=== PATIENT | female | born 1940 | race African-American/Black ===

== ENCOUNTER → 2022-08-31 08:19 | Outpatient (BNVA) | payer OTHER, SELFPAY | PROVIDERS: PCP Internal Medicine; Visit Provider Surgery | DX: C50.911 Malignant neoplasm of unspecified site of right female breast (principal) | CPT/HCPCS: 99202 ==

== ENCOUNTER → 2022-09-01 12:06 | Outpatient (BNV) | payer OTHER, SELFPAY | PROVIDERS: PCP Internal Medicine; Visit Provider Internal Medicine | DX: C50.911 Malignant neoplasm of unspecified site of right female breast (principal) | CPT/HCPCS: 99205; 99212; 99213; 99214; 99215; G2211 ==

== ENCOUNTER → 2022-09-06 08:05 | Outpatient (BNVA) | payer OTHER, SELFPAY | PROVIDERS: PCP Internal Medicine; Referring Provider Internal Medicine; Visit Provider Surgery | DX: C50.919 Malignant neoplasm of unspecified site of unspecified female breast (principal) | CPT/HCPCS: 99202 ==

== ENCOUNTER 2022-09-07 07:55 | Day surgery (SDC) | payer OTHER, SELFPAY ==
--- NOTE | 2022-09-06 14:28 | MHC.SHP ---
Pre-Procedural Eval Section A Date of Service: 09/06/22 The patient is an INPATIENT: No Changes since office visit: No Cold of Flu in the past 2 weeks, No New Medical Problems, No Changes in Medication and No Patient answered all questions The History & Physical has been completed within 30 days and I have reviewed it.: Yes Section B Chief Complaint: Malignant neoplasm of unspecified site of unspecif Allergies: Allergies Allergy/AdvReac Type Severity Reaction Status Date / Time metformin Allergy Mild myalgia Verified 09/06/22 08:13 Plan I have reviewed the history and physical and performed a pertinent physical examination on my patient. No changes have occurred unless specified. Time Spent With Patient Time: Total time managing care of this patient today ____ minutes.
[2022-09-07] VITALS (15 sets, daily range): BP systolic 183–230; BP diastolic 71–153; PULSE 50–68; RESP 14–16; TEMP 36.1–36.8; O2SAT 95–100; BMI 29.8
--- NOTE | 2022-09-07 08:38 | PC.NURSE ---
ekg ordered and md jj by bedside patient. large raised area to right breast. patient stated she recently had fluid removed. right sided chest pain in three areas. asymptomatic.
--- NOTE | 2022-09-07 09:58 | MHC.SHP ---
Pre-Procedural Eval Section A Date of Service: 09/07/22 The patient is an INPATIENT: No Changes since office visit: No Cold of Flu in the past 2 weeks, No New Medical Problems, No Changes in Medication and No Patient answered all questions The History & Physical has been completed within 30 days and I have reviewed it.: Yes Section B Chief Complaint: Malignant neoplasm of unspecified site of unspecif Details of Present Illness: Patient has a recurrence of a right breast cyst which is status post aspiration at [facility] few weeks ago. She would like to have this reaspirated. This has been added to the consent form and will be undertaken in the OR at the completion of port placement Allergies: Allergies Allergy/AdvReac Type Severity Reaction Status Date / Time metformin Allergy Mild myalgia Verified 09/06/22 08:13 Plan I have reviewed the history and physical and performed a pertinent physical examination on my patient. No changes have occurred unless specified. Time Spent With Patient Time: Total time managing care of this patient today ____ minutes.
--- NOTE | 2022-09-07 10:03 | HO.ANESPROP2 ---
HPI - Anesthesia Eval Consult details Narrative: 82 yo F presenting for port-a-cath placement and right breast fluid drainage. Very poorly controlled HTN - SBP in the 200s in pre-op. Patient did not take anti-hypertensive medications today. Patient denied any symptoms. EKG obtained in pre-op showed SB with sinus arrhythmia. Review of previous office visits in other specialties showed SBP between 170s-200s. PMFSH Active Problems Active Problems: All Active Problems (Updated 09/01/22 @ 17:39 by Marisel Christine MD) Triple negative malignant neoplasm of breast (Acute) Invasive ductal carcinoma of right breast (Acute) Type 2 diabetes mellitus (Acute) Hypertension (Acute) Beta thalassemia (Acute) Past Medical History Medical History Beta thalassemia Hypertension Invasive ductal carcinoma of right breast Type 2 diabetes mellitus Family History Family History Sister Breast cancer Surgical History Surgical History History of delivery (1982) Triple negative malignant neoplasm of breast History of Problems with Anesthesia: No Social History Social History Household Members: None Housing: Apartment Alcohol intake: never Patient Tobacco Use Status: Never used Tobacco Use of substances other than those prescribed or required for medical reasons: No Are you DNR?: No Advance Directives: No Advance Directives Information Provided: Yes Recently lost weight without trying: No Nutrition Risks: No Nutritional Risk service: No Current occupational status: retired Meds Allergies Allergy/AdvReac Type Severity Reaction Status Date / Time metformin Allergy Mild myalgia Verified 09/06/22 08:13 Active Medications: Current Medications Lactated Ringer's (Lr) 1,000 mls @ 80 mls/hr IVCONT .[id number] [facility] Home Medications Medication Instructions Recorded Confirmed Last Taken Type atorvastatin 20 mg tablet 20 mg PO DAILY 08/31/22 09/01/22 Unknown History glipizide 10 mg tablet 10 mg PO BID 08/31/22 09/01/22 Unknown History losartan 100 mg tablet 100 mg PO DAILY 08/31/22 09/01/22 Unknown History metoprolol succinate 50 mg 75 mg PO DAILY 08/31/22 09/01/22 Unknown History tablet,extended release 24 hr Exam Exam Date and Time: September 07, 2022 1003 Height,Weight and Vital Signs: Height 5 ft 8 in Weight 88.904 kg Last Vital Signs Temp 98.2 F 09/07/22 08:14 Pulse 55 09/07/22 09:58 Resp 16 09/07/22 09:58 BP 218/89 H 09/07/22 09:58 Pulse Ox 97 09/07/22 08:14 O2 Del Method Room Air 09/07/22 08:14 Airway Mallampati Class: II TM Dist: >3cm Neck ROM: Full Denture: Upper Heart: S1S2 Lungs: CTAB Assessment and Plan Assessment Anesthesia Assessment: Anesthesia Plan Discussed and Chart Reviewed Final Anesthetic Review History of Problems with Anesthesia: No NPO: Yes ASA Class: III Final Preanesthetic Review: No Changes in Pt Med Stat, Meds/Allgs Chart Reviewed, Consent Obtained/Reviewed and Anes Risks/Benef Reviewed Patient Risk: Intermediate Procedure Risk: Low Anesthetic Plan Anesthetic Plan: MAC: and Agree w/ Assess. and Plan Disposition: Standard PACU
--- NOTE | 2022-09-07 12:08 | W.PM.OPN ---
Operative Note Operative Note Date of Service: 09/07/22 Narrative: Preoperative diagnosis: [] Metastatic breast cancer, large anterior chest wall/breast malignant cyst Postop diagnosis: [] Same Procedure . 1. left subclavian Port-A-Cath placement with Doppler ultrasound guidance and fluoroscopy, 2.aspiration massive right anterior chest wall malignant cyst Surgeon: [] [employer] Director: [] lyla Awad Type of Anesthesia: [] MAC covered LMA Indication for surgery: [] Patient had attempted right internal jugular vein and right subclavian vein access , which was uneventfully obtained but with inability to advanced the wire into the superior vena cava. The concern is that this used chest wall process which was visible externally may also be involved with mediastinal disease/SVC compression. Conversion to the contralateral left side was used for access. Approximately 400 cc dark colored turbid fluid was retrieved from the anterior chest wall complex malignant cyst. Findings: [] 1. Patient brought to the operating room, placed on operative table supine position, after adequate level of initially MAC anesthesia was induced, the right neck and chest areas were prepped draped in usual sterile fashion. Patient was placed in Trendelenburg position. Using Doppler ultrasound guidance, the right internal jugular vein was identified and uneventfully cannulated. Under fluoroscopic guidance, the wire was unable to be advanced into the superior vena cava. The wire kept going down to the subclavian vein on the right side instead. Despite multiple attempts, this was unsuccessful in passing the wire into the superior vena cava. Next venous access was attempted to the right subclavian vein which again was uneventfully cannulated but with inability to advance the wire beyond the internal jugular vein/subclavian vein junction. The concern is that the patient may have a malignant process involving her mediastinum and possibly resulting in the inability to advance the wire. Intraoperative fluoroscopy demonstrated no evidence of pneumothorax on the right side. Decision was made to attempt access from the contralateral left side. The left neck and chest were then prepped and draped in usual sterile fashion. The left internal jugular vein was again cannulated uneventfully under ultrasound guidance with the wire advanced to the right side but with inability to advanced into the superior vena cava despite multiple attempts. A cutdown was made in the internal jugular vein to once again attempt to access the vein and attempt to advance the wire. A small transverse incision was made over the area between the 2 heads of the left anterior neck, carried down through skin, subcutaneous tissue, cervical fascia. Internal jugular vein was identified and uneventfully cannulated using Seldinger technique and again the wire would not advance into the superior vena cava. This wound Was irrigated, secured hemostasis, and closed using the following technique, cervical fascia was reapproximated using interrupted 3-0 Vicryl sutures. Interrupted inverted deep dermal 3-0 Vicryl sutures followed by running subcuticular 4-0 Vicryl sutures which were placed. Final attempt was made to cannulate the left subclavian vein, again under Seldinger technique. This was uneventfully accessed and a wire was able to advance to the level of the superior vena cava under fluoroscopic guidance. A pocket was fashioned at the cannulation site of the left upper chest using Bovie. Dilating sheath was then placed over the wire again under fluoroscopic guidance and a wire retrieved. Catheter was advanced to the level of the disc superior vena cava uneventfully and connected to a port. Port secured to the pocket using 3-0 Vicryl sutures. Antegrade and retrograde flow were established several times without incident. Wound was irrigated, secured hemostasis, and closed using interrupted inverted dermal 3-0 Vicryl sutures followed by Steri-Strips and sterile dressing. 2. Next the massive anterior right chest wall cyst was aspirated were approximately 400 cc of turbid fluid were retrieved. Specimen sent for for cytology. Sterile dressing was applied to this. Sponge, needle, and instrument counts reported correct. Patient tolerated the procedure well emerged anesthesia stable condition. Postprocedure x-ray is pending in recovery room. EBL minimal
== END 2022-09-07 15:32 | disposition home or self-care (01) ==
PROVIDERS: Visit Provider Surgery
PROC: (CPT 36561; principal; 2022-09-07 09:30)
PROC: (CPT 19120; 2022-09-07 09:30)
DX: C50.919 Malignant neoplasm of unspecified site of unspecified female breast (principal); L72.9 Follicular cyst of the skin and subcutaneous tissue, unspecified; E11.9 Type 2 diabetes mellitus without complications; I10 Essential (primary) hypertension
CPT/HCPCS: 36561; 10160; 71045; 82947; 88112; 88305; 88341; 88342; 93005; C1788; J0131; J0690; J1643; J2405; J2795; J3010

== ENCOUNTER 2022-09-08 08:53 | Outpatient (REF) | payer OTHER, SELFPAY ==
--- NOTE | ~2022-09-08 | CT_ITS ---
EXAMINATION: CT ABDOMEN AND PELVIS WITH CONTRAST CLINICAL INFORMATION: History of breast cancer. Staging evaluation. COMPARISON: Nuclear medicine bone scan 09/13/2022 TECHNIQUE: Multidetector volumetric images were obtained from the superior aspect of the liver through the pubic symphysis following administration 85 mL of Omnipaque 350 intravenous contrast. Sagittal and coronal reformatted images were obtained on the technologist's workstation. Oral contrast: No This CT examination was performed using dose optimization techniques as appropriate, variously including the following: *Automated exposure control *Adjustment of mA and/or kV according to patient size (this includes techniques or standardized protocols for targeted exams where dose is matched to indication/reason for exam; i.e. extremities or head) *Use of iterative reconstruction technique DLP: 436 mGy-cm FINDINGS: LUNG BASES: Right basilar atelectasis. LIVER, GALLBLADDER, AND BILIARY TREE: The liver is normal in size and contour. No focal hepatic lesion or biliary ductal dilatation is present. The gallbladder is unremarkable. PANCREAS: No ductal dilatation. SPLEEN: Not enlarged. ADRENAL GLANDS: No adrenal mass. KIDNEYS AND URETERS: The kidneys are symmetric in size and enhancement. No hydronephrosis or perinephric stranding. BLADDER: Underdistended. GASTROINTESTINAL TRACT: Stomach is underdistended limiting evaluation. Small and large bowel loops are of normal caliber. Marked fecal retention in the colon. No small bowel obstruction. ABDOMINAL WALL: No significant hernia is appreciated. LYMPH NODES: No bulky abdominal or pelvic lymphadenopathy. VASCULAR: No abdominal aortic aneurysm. Moderate atherosclerotic vascular calcification of the abdominal aorta and major branch vessels. PELVIC VISCERA: Enhancing right uterine fibroid. OSSEOUS STRUCTURES: Sclerotic foci right sacral ala, left iliac bone, left hemisacrum, right L4 pedicle. CT/CT abdomen pelvis w IV con IMPRESSION: Enhancing right uterine fibroid. Scattered sclerotic foci in the the pelvic bones. There is no corresponding uptake on nuclear medicine bone scan.
== END 2022-09-08 08:54 | disposition home or self-care (01) ==
LOC: HO.CT 08:53
PROVIDERS: Visit Provider Internal Medicine
DX: C50.911 Malignant neoplasm of unspecified site of right female breast (principal)
CPT/HCPCS: 74177; Q9967

== ENCOUNTER → 2022-09-11 09:01 | Outpatient (REF) | payer OTHER, SELFPAY ==
--- NOTE | 2022-09-11 09:04 | CA_ITS ---
Transthoracic Echocardiogram Patient (Last, First, Middle): Kera Stovall, Gender: Female Date of : 1940 Age: 82 Procedure Date: 09/11/2022 Procedure Type: Transthoracic Echocardiogram Location: OP Height: 172.72 cm Weight: 88.45 kg BSA: 2.02 m2 Heart Rate: bpm BP: 170 / 90 mmHg Profile Trimmer: RADHA Referring MD: Marisel Christine MD Taker Off Hemp Fiber: Isak Castillo MD Symptoms: pre chemo eval Study Quality: Fair ECG Rhythm: Sinus Conclusions: - 1. Normal LV systolic function with LVEF of 65-70% with mild LVH with impaired relaxation filling pattern 2. Moderately dilated left atrium 3. Normal cardiac valvular Dopplers 4. No clear evidence of pulmonary hypertension 5. No gross pericardial effusion Findings Left Ventricle Normal left ventricular size and systolic function. There is mildly increased left ventricular wall thickness. The visually estimated ejection fraction is between 65-70%. Spectral Doppler is indicative of an impaired relaxation filling pattern. E/E prime ratio is between 8 and 15 consistent with indeterminate filling pressures. Peak GLS is -19.2%, within normal limits. Right Ventricle Normal right ventricular cavity size and systolic function. Atria The left atrium is moderately dilated. Interatrial shunt cannot be excluded. The right atrium is likely dilated. Aortic Valve The aortic valve was not well visualized. There is no aortic valve stenosis. There is no aortic valve regurgitation. Mitral Valve Likely normal mitral valve structure and function. There is trace mitral valve regurgitation. There is no mitral valve stenosis. Pulmonic Valve The pulmonic valve was not well visualized. Tricuspid Valve Likely normal tricuspid valve structure and function. There is mild tricuspid valve regurgitation. The right ventricular systolic pressure is not calculated. There is no evidence of pulmonary hypertension. Great Vessels All visible segments of the aorta are normal in size. The pulmonary artery was not well visualized. Venous The inferior vena cava was not well visualized. Pericardium/Pleural There is no evidence of pericardial effusion. Prior Study Comparison No prior study available for comparison. Measurements 2D Linear Measurements IVSd: 1.24 0.6-0.9/0.6-1.0 cm LVIDd: 3.91 3.9-5.3/4.2-5.9 cm LVIDd Index: 1.94 2.4-3.2/2.2-3.1 cm/m2 LVIDs: 2.22 2.0-3.6 cm LVPWd: 1.26 0.7-1.1 cm LA Diam: 3.60 2.7-3.8/3.0-4.0 cm LAIDs Index: 1.78 1.5-2.3 cm/m2 LV Mass: 211.74 67-162/88-224 g LV Mass Index: 104.82 43-95/49-115 g/m2 LVOT Diam: 2.00 3.0+(-)1.3 cm 2D Systolic Function EF 4C: 62.90 >55% EF 2C: 69.50 >55% EF BiP: 66.70 >55% Mitral Valve MV Pk E: 0.72 MV PK A: 1.08 MV Decel Time: 273.00 E/A: 0.70 E'Lateral: 5.66 E'Medial: 5.33 E/E' Med: 13.40 E/E' Lat: 12.70 PHT: 80.00 MVA PHT: 2.75 Decel Kleberg: 2.62 Aortic Valve AoV Pk Jay: 1.58 AoV Mn Jay: 1.02 AoV VTI: 0.37 AoV Pk Grad: 10.00 Aov Mn Grad: 5.00 SAMMI Cont.VTI: 2.42 LVOT LVOT Pk Jay: 1.17 LVOT Mn Jay: 0.77 LVOT VTI: 0.28 LVOT Pk Grad: 5.00 LVOT Mn Grad: 3.00 LVOT Diam: 2.00 LVOT Area: 3.14 Diastolic Function MV Pk E: 0.72 MV Pk A: 1.08 E/A: 0.70 E'Medial: 5.33 E/E' Med: 13.40 E' Laterial: 5.66 E/E' Lat: 12.70 Right Ventricle TAPSE (mm): 20.90 TVS' Jay: 13.90 Tricuspid Valve TR Pk Jay: 2.84 TR Pk Grad: 32.00 Great Vessels Aorta Sinus of Valsalva: 3.11 2.0-3.[address] Ridge: 2.60 1.7-3.4 cm Ao Asc: 3.20 2.1-3.4 cm Updated in Other Vendor System with Status of Final Isak Castillo MD electronically signed on 09/12/2022 12:06:54 PM with status of Final
== END ==
LOC: HO.CARD 09:01
PROVIDERS: Visit Provider Internal Medicine
DX: Z01.810 Encounter for preprocedural cardiovascular examination (principal); C50.911 Malignant neoplasm of unspecified site of right female breast
CPT/HCPCS: 93306; 93356

== ENCOUNTER → 2022-09-11 09:04 | Outpatient (BNV) | payer OTHER, SELFPAY | PROVIDERS: Visit Provider Internal Medicine Cardiovascular Disease | DX: I36.1 Nonrheumatic tricuspid (valve) insufficiency (principal) | CPT/HCPCS: 93306 ==

== ENCOUNTER → 2022-09-13 09:51 | Outpatient (REF) | payer OTHER, SELFPAY ==
--- NOTE | ~2022-09-13 | NM_ITS ---
EXAMINATION: NM BONE SCAN OF THE WHOLE BODY CLINICAL INFORMATION: 82-year-old female with right-sided breast cancer. For staging. COMPARISON: CT of the abdomen and pelvis done on 09/08/2022. TECHNIQUE: Multiple gamma scintillation camera images of the whole body were performed 2.75 hours following the intravenous administration of 32 mCi Tc-99m MDP. The radiotracer was injected through left hand superficial vein without complications. FINDINGS: In the head, no suspicious focal lesion. In the thoracic cage and upper extremities, mild arthritic changes are present at left hand, both shoulder and both sternoclavicular joints. In the spine, mild increase radiotracer activity at lower lumbar spine and lower thoracic spine likely represent degenerative spondylosis. In the pelvis, no suspicious focal lesion. In the lower extremities, increased periarticular radiotracer activities around both knees and both feet likely represent arthritic changes. No other definite bony abnormalities are noted. The urinary bladder and faint visualization of both kidneys are noted. NM/NM bone scan whole body IMPRESSION: No definite scintigraphic evidence of osseous metastasis. Multifocal increased radiotracer activity is seen around both shoulder, both sternoclavicular joints and both knees and both feet likely represent arthritic changes mild increased radiotracer activities at lower thoracic and lower lumbar spine likely represent degenerative spondylosis.
== END ==
LOC: HO.NUCMED 09:51
PROVIDERS: Visit Provider Internal Medicine
DX: C50.911 Malignant neoplasm of unspecified site of right female breast (principal)
CPT/HCPCS: 78306; A9503

== ENCOUNTER 2022-09-15 08:44 | Outpatient (AMB) | payer OTHER, SELFPAY ==
--- NOTE | 2022-09-15 08:57 | MHC.OFFVIS ---
Intake Vital Signs 09/15/22 08:58 Weight 195 lb Blood Pressure Location Rt brachial Pulse 66 Intake Visit Reasons: Port-A-Cath Insertion Intake Note: Patient here to re-check port-a-cath site. BEREAVEMENT COUNSELOR from snf called. Concerned with redness spreading. Curtain Cutter Hand Required: No Accompanied by: Daughter Allergies metformin Allergy (Mild, Verified 09/15/22 08:59) myalgia HPI HPI Comments History of Present Illness Details Patient presents with her daughter for follow-up. Aside from incisional discomfort she is doing fairly well. The right breast cystic mass has recurred after her aspiration which is also happened in the past when this was aspirated. [facility] Medical History Beta thalassemia Hypertension Invasive ductal carcinoma of right breast Type 2 diabetes mellitus Surgical History History of delivery (1982) Triple negative malignant neoplasm of breast Family History Sister Breast cancer Social History Household Members: None Housing: Apartment Alcohol intake: never Patient Tobacco Use Status: Never used Tobacco service: No Current occupational status: retired Female Reproductive History Menstrual Age of Menarche: 17 Physical Exam Vital Signs: Last Vital Signs Pulse 66 09/15/22 08:58 Chest Other: Left neck and chest port incision sites are clean dry and intact. Recurrence of right breast is cyst /mass. Assessment & Plan Assessment & Plan (1) Triple negative malignant neoplasm of breast: Code(s): C50.919 - Malignant neoplasm of unspecified site of unspecified female breast Plan Patient is to follow-up with Oncology regarding her commencement of chemotherapy/normal therapy. I once again explained to them why she has 2 incisions regarding her port. The left internal jugular vein access site which was attempted, the wire was unable to be advanced into the superior vena cava . The left subclavian vein which was then accessed had the wire pass uneventfully into her superior vena cava and this was the reason for 2 separate incisions. Patient will otherwise follow-up up p.r.n.. Once her oncologic therapy has commenced and she still has persistence of the cyst, hopefully this will allow aspiration and prevent recurrence. Coding Level of Care Code Global (25847) Diagnoses Triple negative malignant neoplasm of breast C50.919
[2022-09-15 08:58] VITALS: PULSE 66
== END 2022-09-15 09:09 | disposition home or self-care (01) ==
PROVIDERS: Visit Provider Surgery
DX: C50.919 Malignant neoplasm of unspecified site of unspecified female breast (principal)
CPT/HCPCS: 99024

== ENCOUNTER → 2022-09-15 08:44 | Outpatient (BNVA) | payer OTHER, SELFPAY | PROVIDERS: Visit Provider Surgery ==

== ENCOUNTER 2022-09-20 08:58 | Outpatient (REF) | payer OTHER, SELFPAY ==
[2022-09-20 09:11] LABS: MANUAL DIFF FLAG NO
[2022-09-20 09:44] LABS: Basophils Percent Auto 0.6 % (0-2); Eosinophils Absolute Auto 0.1 X10*3/uL (0.0-0.4); Eosinophils Percent Auto 1.7 % (0-4); Hemoglobin 11.3 g/dl (12.0-16.0); Imm Gran Abs Auto 0.02 X10*3/uL (0.00-0.03); Imm Gran Pct Auto 0.3 % (0.0-0.4); Lymphocytes Absolute Auto 1.9 X10*3/uL (1.2-4.9); Lymphocytes Percent Auto 27.4 % (20-40); Mean Corpuscular HGB Conc 30.5 g/dl (31.0-35.0); Mean Corpuscular Hemoglobin 23.9 pg (27.0-33.0); Mean Corpuscular Volume 78.4 fL (80.0-98.0); Mean Platelet Volume 10.3 fL (9.4-12.3); Monocytes Absolute Auto 0.5 X10*3/uL (0.1-1.2); Monocytes Percent Auto 7.7 % (2-11); Neutrophils Absolute Auto 4.3 x10*3/uL (2.0-8.3); Neutrophils Percent Auto 62.3 % (45-73); Platelet Count 259 X10*3/uL (160-400); Red Blood Count 4.72 X10*6/uL (4.20-5.50); Red Cell Distribution Width 15.4 % (11.0-16.0); White Blood Count 6.9 X10*3/uL (4.8-10.8)
[2022-09-20 10:17] LABS: Alanine Aminotransferase 12 U/L (0-31); Albumin Level 3.8 g/dL (3.5-5.0); Alkaline Phosphatase 88 U/L (39-117); Anion Gap 12 (12-20); Aspartate Amino Transferase 14 U/L (5-31); Bilirubin Total 0.6 mg/dL (0.0-1.0); Blood Urea Nitrogen 11 mg/dL (9-16); Calcium 9.9 mg/dL (8.4-10.2); Carbon Dioxide 28 mmol/L (22-29); Chloride 104 mmol/L (96-108); Estimated Glomerular Filt Rate > 60; Glucose Random 128 mg/dL (60-115); Potassium 3.9 mmol/L (3.3-5.1); Sodium 140 mmol/L (135-145)
[2022-09-20 10:37] LABS: HBS Num1 1.82 mIU/mL (0-7.99); HBc Num1 0.09 S/CO (0.00-0.79); HBsAGNum1 0.29 S/CO (0.00-0.99); Hepatitis B Core Antibody Nonreactive (Nonreactive); Hepatitis B Surface Antigen Negative (Negative); ~Hepatitis B Surface Antibody NONREACTIVE (Nonreactive)
== END 2022-09-20 08:59 | disposition home or self-care (01) ==
LOC: HO.LAB 08:58
PROVIDERS: Visit Provider Internal Medicine
DX: C50.911 Malignant neoplasm of unspecified site of right female breast (principal)
CPT/HCPCS: 36415; 80053; 85025; 86704; 86706; 87340

== ENCOUNTER 2022-09-22 08:55 | Outpatient (AMB) | payer OTHER, SELFPAY ==
--- NOTE | 2022-09-22 09:06 | A.OFFVIS_ITS ---
Intake Vital Signs 09/22/22 09:12 Height 5 ft 8 in Weight 192 lb BMI 29.2 BP 200/108 H Blood Pressure Location Lt brachial Position Sitting Pulse 68 Intake Visit Reasons: ? seroma Rt sup breast Intake Note: Patient here for painful growth on Rt sup chest. States pain is not helping with high blood pressure. She is scheduled to see PCP next Sunday. System Specialist Required: No Accompanied by: Daughter Allergies metformin Allergy (Mild, Verified 09/22/22 09:07) myalgia Medication List - Last Reconciled 09/22/22 by Naeem Aviles MD atorvastatin 20 mg PO DAILY glipizide 10 mg PO BID hydrocodone-acetaminophen 5-325 mg 1 tab PO Q4-6H PRN loperamide (Imodium A-D) 2 mg PO Q4H PRN losartan 100 mg PO DAILY metoprolol succinate ER 75 mg PO DAILY ondansetron 8 mg PO Q8H PRN HPI HPI Comments History of Present Illness Details Patient presents with a recurrence of her right breast malignant seroma. She wishes to have it drained. Patient comments chemotherapy earlier this week with uneventful use of the port. [facility] Medical History Beta thalassemia Hypertension Invasive ductal carcinoma of right breast Type 2 diabetes mellitus Surgical History History of delivery (1982) Triple negative malignant neoplasm of breast Family History Sister Breast cancer Social History Household Members: None Housing: Apartment Alcohol intake: never Patient Tobacco Use Status: Never used Tobacco service: No Current occupational status: retired Female Reproductive History Menstrual Age of Menarche: 17 Physical Exam Vital Signs: Last Vital Signs Pulse 68 09/22/22 09:12 BP 200/108 H 09/22/22 09:12 BMI result Body Mass Index 29.2 Chest Other: Massive right upper breast 12 o'clock position enormous malignant seroma Office Procedures FNA Biopsy FNA Biopsy Details: Risks, benefits, alternatives of aspiration of right breast malignant seroma reviewed with the patient and included but not limited to bleeding, infection, recurrence, numbness, pain, scarring and the patient was to proceed. Patient underwent Betadine prep and uneventful aspiration of approximately 260 cc of fluid from her malignant breast seroma. Well tolerated. Dressing applied at completion. FNA Biopsy 2: [id number] Biopsy, additional lesion w/o image All charges added?: Procedure code (CPT) selection complete Assessment & Plan Assessment & Plan (1) Seroma of breast: Comment: Patient has been given local instructions, and will follow-up p.r.n. Code(s): N64.89 - Other specified disorders of breast Orders: Orders Biopsy - Fine needle aspiration Today N64.89 - Other specified disorders of breast Coding Level of Care Code Est Pt Level 3 (07581) Diagnoses Seroma of breast N64.89 CPT Codes FNA Biopsy - FNA Biopsy 2: 86143-[id number] Biopsy, additional lesion w/o image ([id number])
[2022-09-22 09:12] VITALS: BP 200/108; PULSE 68; BMI 29.2
== END 2022-09-22 09:28 | disposition home or self-care (01) ==
PROVIDERS: Visit Provider Surgery
DX: N64.89 Other specified disorders of breast (principal)
CPT/HCPCS: 19000; 99213

== ENCOUNTER → 2022-09-22 08:55 | Outpatient (BNVA) | payer OTHER, SELFPAY | PROVIDERS: Visit Provider Surgery | DX: N64.89 Other specified disorders of breast (principal); C50.911 Malignant neoplasm of unspecified site of right female breast | CPT/HCPCS: 10160; 99212 ==

== ENCOUNTER 2022-09-29 08:37 | Outpatient (AMB) | payer OTHER, SELFPAY ==
--- NOTE | 2022-09-29 08:46 | MHC.OFFVIS ---
Intake Vital Signs 09/29/22 08:47 Height 5 ft 8 in Weight 193 lb BMI 29.3 Pulse 86 Intake Visit Reasons: S/P seroma of chest, needs draining Intake Note: Patient c/o seroma on Rt chest started to grow a couple days after last visit. Patient states she gets needle pricks at site. Barrel Finisher Required: No Accompanied by: Daughter Allergies metformin Allergy (Mild, Verified 09/29/22 08:48) myalgia Medication List - Last Reconciled 09/29/22 by Naeem Aviles MD atorvastatin 20 mg PO DAILY glipizide 10 mg PO BID hydrocodone-acetaminophen 5-325 mg 1 tab PO Q4-6H PRN loperamide (Imodium A-D) 2 mg PO Q4H PRN losartan 100 mg PO DAILY metoprolol succinate ER 75 mg PO DAILY ondansetron 8 mg PO Q8H PRN HPI HPI Comments History of Present Illness Details Patient presents with her daughter. She has had a as expected recurrence of her right breast malignant cyst. She is currently undergoing chemotherapy. Port is working well. [facility] Medical History Beta thalassemia Hypertension Invasive ductal carcinoma of right breast Type 2 diabetes mellitus Surgical History History of delivery (1982) Triple negative malignant neoplasm of breast Family History Sister Breast cancer Social History Household Members: None Housing: Apartment Alcohol intake: never Patient Tobacco Use Status: Never used Tobacco service: No Current occupational status: retired Female Reproductive History Menstrual Age of Menarche: 17 Physical Exam Vital Signs: Last Vital Signs Pulse 86 09/29/22 08:47 BMI result Body Mass Index 29.3 Chest Other: Recurrence of her chest wall cyst although grossly appears less in size. Office Procedures FNA Biopsy FNA Biopsy Details: Risks, benefits, alternatives of aspiration of a recurrent breast malignancy cyst reviewed the patient and included but not limited to bleeding, infection, recurrence, numbness, pain, scarring the patient was to proceed. She has had multiple such procedures done the past. Patient was appropriate position with Betadine prep and aspiration of 140 cc were retrieved. Completely drained. This is several 100 cc less than the prior the prior aspirations. Sterile dressing was applied. Well tolerated. FNA Biopsy 1: 43843-FHP Biopsy, 1st lesion w/o image All charges added?: Procedure code (CPT) selection complete Assessment & Plan Assessment & Plan (1) Seroma of breast: Comment: Patient has been given local instructions, and will follow-up p.r.n. Code(s): N64.89 - Other specified disorders of breast Plan: Patient had markedly less seroma on this visit. This is strongly encouraging hopefully related to her commencement of chemotherapy. Pain patient has been given local instructions, and will follow-up ER Orders: Orders Biopsy - Fine needle aspiration Today N64.89 - Other specified disorders of breast Coding Level of Care Code Est Pt Level 3 (42172) Diagnoses Seroma of breast N64.89 CPT Codes FNA Biopsy - FNA Biopsy 1: 06537-CQI Biopsy, 1st lesion w/o image ([id number])
[2022-09-29 08:47] VITALS: PULSE 86; BMI 29.3
== END 2022-09-29 09:05 | disposition home or self-care (01) ==
PROVIDERS: Visit Provider Surgery
DX: N64.89 Other specified disorders of breast (principal)
CPT/HCPCS: 19000; 99213

== ENCOUNTER → 2022-09-29 08:37 | Outpatient (BNVA) | payer OTHER, SELFPAY | PROVIDERS: Visit Provider Surgery | DX: N64.89 Other specified disorders of breast (principal); C50.911 Malignant neoplasm of unspecified site of right female breast | CPT/HCPCS: 19000; 99212 ==

== ENCOUNTER 2022-11-04 15:49 | Emergency (ER) | payer OTHER, SELFPAY ==
--- NOTE | ~2022-11-04 | US_ITS ---
EXAMINATION: US ABDOMEN GALLBLADDER. CLINICAL INFORMATION: Right upper quadrant pain. Epigastric pain.. COMPARISON: None available. TECHNIQUE: Real-time imaging of the gallbladder FINDINGS: GALLBLADDER: Normal. The gallbladder is physiologically distended without evidence of stones, sludge, polyps, wall thickening or pericholecystic fluid. COMMON BILE DUCT: Normal in caliber measuring 0.4 cm in diameter. US/US abdomen limited IMPRESSION: Normal ultrasound of the gallbladder.
--- NOTE | ~2022-11-04 | XR_ITS ---
EXAMINATION: XR CHEST CLINICAL INFORMATION: Chest pain COMPARISON: None available. TECHNIQUE: 2 views of the chest were obtained. FINDINGS: Left-sided chest port with tip terminating in the proximal right atrium. No significant abnormality is noted involving the heart, lungs, mediastinum, bony thorax or soft tissues. XR/XR chest 2V IMPRESSION: Unremarkable examination.
--- NOTE | 2022-11-04 15:51 | ED.GENADULT ---
HPI - General Adult General Chief complaint: General Medical Stated complaint: fever ,body aches chemo 11/03 Time Seen by Provider: 11/04/22 16:39 Source: patient and family Mode of arrival: ambulatory History of Present Illness HPI narrative: 82-year-old female with history of hypertension/diabetes as well as current breast CA and undergoing chemotherapy which she received yesterday and then states that this morning she woke up with fever, chills, chest pain, cough productive of clear white sputum and is feeling as though her stomach was twisting but denies any nausea, vomiting, diarrhea and states that she is currently on medication covering her for urinary tract infection. Related Data Home Medications Medication Instructions Recorded Confirmed atorvastatin 20 mg tablet 20 mg PO DAILY 08/31/22 11/03/22 glipizide 10 mg tablet 10 mg PO BID 08/31/22 11/03/22 losartan 100 mg tablet 100 mg PO DAILY 08/31/22 11/03/22 metoprolol succinate 50 mg 75 mg PO DAILY 08/31/22 11/03/22 tablet,extended release 24 hr Previous Rx's Medication Instructions Recorded loperamide 2 mg tablet (Imodium 2 mg PO Q4H PRN Diarrhea #30 tabs 09/19/22 A-D) ondansetron 8 mg disintegrating 8 mg PO Q8H PRN Nausea #30 tabs 09/19/22 tablet oxycodone 5 mg tablet 5 mg PO Q8H PRN Pain #30 tabs 10/06/22 amlodipine 10 mg tablet (Norvasc) 10 mg PO DAILY #30 tabs 10/13/22 nitrofurantoin 100 mg PO Q12H #10 caps 10/27/22 monohydrate/macrocrystals 100 mg capsule (Macrobid) sennosides 8.6 mg-docusate sodium 1 tab-cap PO BEDTIME #30 tabs 10/27/22 50 mg tablet (Senna with Docusate Sodium) Allergies Allergy/AdvReac Type Severity Reaction Status Date / Time metformin Allergy Mild myalgia Verified 09/29/22 08:48 Review of Systems Review of Systems: Pertinent positives and negatives as stated in HPI [facility] Past Medical History Source: nursing notes reviewed Medical History Beta thalassemia Hypertension Invasive ductal carcinoma of right breast Type 2 diabetes mellitus Surgical History History of delivery (1982) Triple negative malignant neoplasm of breast Family History Family History Sister Breast cancer Social History Social History Household Members: None Housing: Apartment Alcohol intake: never Patient Tobacco Use Status: Never used Tobacco Smoked in Last 30 Days: No Use of substances other than those prescribed or required for medical reasons: No Advance Directives: Yes Advance Directives on File: Yes Advance Directives Date on File: 09/01/22 service: No Current occupational status: retired Physical Exam ED Vital Signs: Vital Signs - 24 hr 11/04/22 15:53 11/04/22 17:40 11/04/22 19:22 Temperature 100.9 F H 98.8 F Pulse Rate 82 65 67 Respiratory Rate 20 20 14 Blood Pressure 164/66 H 146/63 H 132/65 Pulse Oximetry 97 96 95 Oxygen Delivery Method Room Air Room Air Room Air 11/04/22 22:14 11/05/22 00:00 Temperature 98.5 F 98.9 F Pulse Rate 96 87 Respiratory Rate 16 17 Blood Pressure 131/65 119/70 Pulse Oximetry 96 100 Oxygen Delivery Method Room Air Room Air BMI result Body Mass Index 29.6 VITAL SIGNS: Reviewed. GENERAL: Well developed, well nourished, in no acute distress. HEAD: Normocephalic/atraumatic EYES: PERRLA, EOMI EARS: Ext canals without abnormality NOSE: Nares patent bilateral OROPHARYNX: no oral lesions noted, posterior pharynx clear NECK: Supple, no adenopathy LUNGS: Normal breath sounds. No adventitious sounds or accessory muscle use. SpO2<97> CARDIOVASCULAR: Regular rate and rhythm without noted murmurs, no JVD or lower extremity edema. ABDOMEN: Soft, non-tender, non-distended with bowel sounds. MUSCULOSKELETAL: No tenderness, deformities, or effusions noted on gross inspection. EXTREMITIES: No cyanosis, clubbing or edema. SKIN: Inspection of the skin reveals no rashes NEUROLOGIC: Alert and oriented x 4. Strength and sensation to light touch were grossly intact x 4. Course Course Course Narrative: RME: 82-year-old female with past medical history of right breast invasive ductal CA on chemotherapy (last received yesterday), beta thalassemia, HTN, diabetes, presenting to the ED complaining of fever Tmax 101, myalgias/body aches, cough, chest pain & nausea. Denies SOB, vomiting/diarrhea. Denies any antipyretics today Febrile 100.9, coarse cough noted on exam EKG, labs, CXR, UA, Blood Cx & lactic, viral testing ordered Full HPI, ROS and PE to be performed by primary ED provider. Medications Administered Discontinued Medications Generic Name Dose Route Start Last Admin Trade Name Freq PRN Reason Stop Dose Admin Acetaminophen 975 mg 11/04/22 17:18 11/04/22 17:28 Acetaminophen 325 Mg Tablet PO 11/04/22 17:19 975 mg ONCE ONE Administration Potassium Chloride 10 meq in 100 mls @ 100 mls/hr 11/04/22 17:30 11/05/22 00:08 Potassium Chloride/H20 IV 11/04/22 21:29 Infused Q1H KYLEE Infusion Lidocaine/Diphenhydr/Alum/Mg/Simeth 10 ml 11/04/22 22:14 11/04/22 22:32 Mag&Al/Sim/Diphenhyd/Lidocaine 10 Ml Oral.Susp PO 11/04/22 22:15 10 ml ONCE ONE Administration Protocol Ondansetron HCl 4 mg 11/04/22 16:01 11/04/22 16:03 Ondansetron Odt 4 Mg Tab.Rapdis TRANSLINGU 11/04/22 16:02 4 mg ONCE ONE Administration Medical Decision Making Medical Decision Making MDM Narrative: 82-year-old female with history and clinical presentation of immuno compromise, DDX: Viral syndrome, pneumonia, gastritis, esophagitis/acid reflux, lower clinical suspicion for ACS given that patient describes it is burning and is been ongoing since this morning. Reviewed all investigations and hematologic indices do not demonstrate leukocytosis but there is a noted left shift, no thrombocytopenia there is a noted chronically stable microcytic anemia. Coagulation studies are within normal limits. Chemistry indices demonstrate a hypokalemia with magnesium within normal limits for which patient will receive 4-10 mEq potassium chloride replacement. Otherwise, there is no evidence of BREANNA there is a noted mild transaminemia for which I will order a right upper quadrant ultrasound. Chest x-ray negative for infiltrate and otherwise my interpretation is in agreement radiology's impression. Viral testing is negative. Ultrasound without evidence of cholecystitis, patient received off for potassium chloride replacements and repeat potassium is noted to be 3.2. Patient also received a GI cocktail and on re-evaluation states that she is feeling much better. My interpretation is that patient may have had a combination of mild acid reflux with low potassium levels. She is now feeling better and is discharged with follow-up to her primary care provider and oncologist. Differential Diagnosis Differential Diagnoses: The differential diagnosis associated with the presentation includes Please see the discussion above Admission/Observation Consideration of admission/observation: Escalation of care including admission/observation considered Please see the discussion above Lab Data MDM Lab Attestation statement: I reviewed the patient's lab results. Please see the discussion above 11/04/22 16:45 11/04/22 16:45 Labs: Lab Results 11/04/22 11/04/22 11/04/22 Range/Units 16:45 16:45 16:45 WBC 6.3 (4.8-10.8) X10*3/uL RBC 3.96 L (4.20-5.50) X10*6/uL Hgb 9.6 L (12.0-16.0) g/dl Hct 29.1 L (37.0-47.0) % MCV 73.5 L (80.0-98.0) fL MCH 24.2 L (27.0-33.0) pg MCHC 33.0 (31.0-35.0) g/dl RDW 15.8 (11.0-16.0) % Plt Count 207 (160-400) X10*3/uL MPV 9.6 (9.4-12.3) fL Immature Gran % (Auto) 1.0 H (0.0-0.4) % Neut % (Auto) 90.2 H (45-73) % Lymph % (Auto) 5.1 L (20-40) % Cedar % (Auto) 3.2 (2-11) % Eos % (Auto) 0.0 (0-4) % Baso % (Auto) 0.5 (0-2) % Lymph # (Auto) 0.3 L (1.2-4.9) X10*3/uL Cedar # (Auto) 0.2 (0.1-1.2) X10*3/uL Eos # (Auto) 0.0 (0.0-0.4) X10*3/uL Baso # (Auto) 0.0 (0.0-0.2) X10*3/uL Abs Immat Gran (auto) 0.06 H (0.00-0.03) X10*3/uL Absolute Neuts (auto) 5.7 (2.0-8.3) x10*3/uL Absolute Nucleated RBC 0.020 H (0.0-0.012) X10*3/uL Nucleated RBC % (auto) 0.3 H (0.0-0.2) /100WBC Smear Tech's Comments VERIFIED PT (11.1-13.3) SEC INR (0.9-1.1) Sodium 138 (135-145) mmol/L Potassium 2.7 L (3.3-5.1) mmol/L Chloride 105 (96-108) mmol/L Carbon Dioxide 25 (22-29) mmol/L Anion Gap 11 L (12-20) BUN 11 (9-16) mg/dL Creatinine 0.66 (0.5-1.4) mg/dL Estim Creat Clear Calc 77.8 Estimated GFR > 60 Random Glucose 63 (60-115) mg/dL Lactic Acid (0.5-2.0) mmol/L Calcium 9.2 (8.4-10.2) mg/dL Magnesium 1.7 (1.6-2.6) mg/dL Total Bilirubin 0.9 (0.0-1.0) mg/dL Direct Bilirubin 0.3 (0.0-0.5) mg/dL AST 36 H (5-31) U/L ALT 32 H (0-31) U/L Alkaline Phosphatase 94 (39-117) U/L Troponin I High Sens 8.9 (<3.5-17.0) ng/L B-Natriuretic Peptide (<100) pg/mL Total Protein 6.7 (6.5-8.0) g/dL Albumin 3.8 (3.5-5.0) g/dL Urine Color Urine Appearance Urine pH (5.0-9.0) Ur Specific [place] (1.005-1.025) Urine Protein (Neg-Trace) mg/dL Urine Glucose (UA) (Negative) mg/dL Urine Ketones (Negative) mg/dL Urine Blood (Negative) Urine Nitrite (Negative) Ur Leukocyte Esterase (Negative) COVID-19 (RAMYA) (Negative) COVID-19 Clin Com Influenza Type A (KOURTNEY) (Negative) Influenza Type B (KOURTNEY) (Negative) Influenza A & B Note 11/04/22 11/04/22 11/04/22 Range/Units 16:45 16:45 16:45 WBC (4.8-10.8) X10*3/uL RBC (4.20-5.50) X10*6/uL Hgb (12.0-16.0) g/dl Hct (37.0-47.0) % MCV (80.0-98.0) fL MCH (27.0-33.0) pg MCHC (31.0-35.0) g/dl RDW (11.0-16.0) % Plt Count (160-400) X10*3/uL MPV (9.4-12.3) fL Immature Gran % (Auto) (0.0-0.4) % Neut % (Auto) (45-73) % Lymph % (Auto) (20-40) % Cedar % (Auto) (2-11) % Eos % (Auto) (0-4) % Baso % (Auto) (0-2) % Lymph # (Auto) (1.2-4.9) X10*3/uL Cedar # (Auto) (0.1-1.2) X10*3/uL Eos # (Auto) (0.0-0.4) X10*3/uL Baso # (Auto) (0.0-0.2) X10*3/uL Abs Immat Gran (auto) (0.00-0.03) X10*3/uL Absolute Neuts (auto) (2.0-8.3) x10*3/uL Absolute Nucleated RBC (0.0-0.012) X10*3/uL Nucleated RBC % (auto) (0.0-0.2) /100WBC Smear Tech's Comments PT 12.9 (11.1-13.3) SEC INR 1.1 (0.9-1.1) Sodium (135-145) mmol/L Potassium (3.3-5.1) mmol/L Chloride (96-108) mmol/L Carbon Dioxide (22-29) mmol/L Anion Gap (12-20) BUN (9-16) mg/dL Creatinine (0.5-1.4) mg/dL Estim Creat Clear Calc Estimated GFR Random Glucose (60-115) mg/dL Lactic Acid (0.5-2.0) mmol/L Calcium (8.4-10.2) mg/dL Magnesium (1.6-2.6) mg/dL Total Bilirubin (0.0-1.0) mg/dL Direct Bilirubin (0.0-0.5) mg/dL AST (5-31) U/L ALT (0-31) U/L Alkaline Phosphatase (39-117) U/L Troponin I High Sens (<3.5-17.0) ng/L B-Natriuretic Peptide (<100) pg/mL Total Protein (6.5-8.0) g/dL Albumin (3.5-5.0) g/dL Urine Color Urine Appearance Urine pH (5.0-9.0) Ur Specific [place] (1.005-1.025) Urine Protein (Neg-Trace) mg/dL Urine Glucose (UA) (Negative) mg/dL Urine Ketones (Negative) mg/dL Urine Blood (Negative) Urine Nitrite (Negative) Ur Leukocyte Esterase (Negative) COVID-19 (RAMYA) Negative (Negative) COVID-19 Clin Com See Note Influenza Type A (KOURTNEY) Negative (Negative) Influenza Type B (KOURTNEY) Negative (Negative) Influenza A & B Note See Note 11/04/22 11/04/22 11/04/22 Range/Units 16:45 16:45 18:00 WBC (4.8-10.8) X10*3/uL RBC (4.20-5.50) X10*6/uL Hgb (12.0-16.0) g/dl Hct (37.0-47.0) % MCV (80.0-98.0) fL MCH (27.0-33.0) pg MCHC (31.0-35.0) g/dl RDW (11.0-16.0) % Plt Count (160-400) X10*3/uL MPV (9.4-12.3) fL Immature Gran % (Auto) (0.0-0.4) % Neut % (Auto) (45-73) % Lymph % (Auto) (20-40) % Cedar % (Auto) (2-11) % Eos % (Auto) (0-4) % Baso % (Auto) (0-2) % Lymph # (Auto) (1.2-4.9) X10*3/uL Cedar # (Auto) (0.1-1.2) X10*3/uL Eos # (Auto) (0.0-0.4) X10*3/uL Baso # (Auto) (0.0-0.2) X10*3/uL Abs Immat Gran (auto) (0.00-0.03) X10*3/uL Absolute Neuts (auto) (2.0-8.3) x10*3/uL Absolute Nucleated RBC (0.0-0.012) X10*3/uL Nucleated RBC % (auto) (0.0-0.2) /100WBC Smear Tech's Comments PT (11.1-13.3) SEC INR (0.9-1.1) Sodium (135-145) mmol/L Potassium (3.3-5.1) mmol/L Chloride (96-108) mmol/L Carbon Dioxide (22-29) mmol/L Anion Gap (12-20) BUN (9-16) mg/dL Creatinine (0.5-1.4) mg/dL Estim Creat Clear Calc Estimated GFR Random Glucose (60-115) mg/dL Lactic Acid 1.2 (0.5-2.0) mmol/L Calcium (8.4-10.2) mg/dL Magnesium (1.6-2.6) mg/dL Total Bilirubin (0.0-1.0) mg/dL Direct Bilirubin (0.0-0.5) mg/dL AST (5-31) U/L ALT (0-31) U/L Alkaline Phosphatase (39-117) U/L Troponin I High Sens (<3.5-17.0) ng/L B-Natriuretic Peptide 205 H (<100) pg/mL Total Protein (6.5-8.0) g/dL Albumin (3.5-5.0) g/dL Urine Color Yellow Urine Appearance Clear Urine pH 6.0 (5.0-9.0) Ur Specific [place] 1.010 (1.005-1.025) Urine Protein Trace (Neg-Trace) mg/dL Urine Glucose (UA) Negative (Negative) mg/dL Urine Ketones Negative (Negative) mg/dL Urine Blood Negative (Negative) Urine Nitrite Negative (Negative) Ur Leukocyte Esterase Negative (Negative) COVID-19 (RAMYA) (Negative) COVID-19 Clin Com Influenza Type A (KOURTNEY) (Negative) Influenza Type B (KOURTNEY) (Negative) Influenza A & B Note 11/04/22 Range/Units 21:13 WBC (4.8-10.8) X10*3/uL RBC (4.20-5.50) X10*6/uL Hgb (12.0-16.0) g/dl Hct (37.0-47.0) % MCV (80.0-98.0) fL MCH (27.0-33.0) pg MCHC (31.0-35.0) g/dl RDW (11.0-16.0) % Plt Count (160-400) X10*3/uL MPV (9.4-12.3) fL Immature Gran % (Auto) (0.0-0.4) % Neut % (Auto) (45-73) % Lymph % (Auto) (20-40) % Cedar % (Auto) (2-11) % Eos % (Auto) (0-4) % Baso % (Auto) (0-2) % Lymph # (Auto) (1.2-4.9) X10*3/uL Cedar # (Auto) (0.1-1.2) X10*3/uL Eos # (Auto) (0.0-0.4) X10*3/uL Baso # (Auto) (0.0-0.2) X10*3/uL Abs Immat Gran (auto) (0.00-0.03) X10*3/uL Absolute Neuts (auto) (2.0-8.3) x10*3/uL Absolute Nucleated RBC (0.0-0.012) X10*3/uL Nucleated RBC % (auto) (0.0-0.2) /100WBC Smear Tech's Comments PT (11.1-13.3) SEC INR (0.9-1.1) Sodium 141 (135-145) mmol/L Potassium 3.2 L (3.3-5.1) mmol/L Chloride 107 (96-108) mmol/L Carbon Dioxide 26 (22-29) mmol/L Anion Gap 11 L (12-20) BUN 9 (9-16) mg/dL Creatinine 0.65 (0.5-1.4) mg/dL Estim Creat Clear Calc 79.0 Estimated GFR > 60 Random Glucose 85 (60-115) mg/dL Lactic Acid (0.5-2.0) mmol/L Calcium 9.3 (8.4-10.2) mg/dL Magnesium (1.6-2.6) mg/dL Total Bilirubin (0.0-1.0) mg/dL Direct Bilirubin (0.0-0.5) mg/dL AST (5-31) U/L ALT (0-31) U/L Alkaline Phosphatase (39-117) U/L Troponin I High Sens (<3.5-17.0) ng/L B-Natriuretic Peptide (<100) pg/mL Total Protein (6.5-8.0) g/dL Albumin (3.5-5.0) g/dL Urine Color Urine Appearance Urine pH (5.0-9.0) Ur Specific [place] (1.005-1.025) Urine Protein (Neg-Trace) mg/dL Urine Glucose (UA) (Negative) mg/dL Urine Ketones (Negative) mg/dL Urine Blood (Negative) Urine Nitrite (Negative) Ur Leukocyte Esterase (Negative) COVID-19 (RAMYA) (Negative) COVID-19 Clin Com Influenza Type A (KOURTNEY) (Negative) Influenza Type B (KOURTNEY) (Negative) Influenza A & B Note Independent Interpretation I performed an independent interpretation of an: EKG Interpretation: Normal sinus rhythm, HR-79, no STEMI, MA/QRS/QTC is within normal limits. Radiology Impression Discussion of test interpretation with radiology: I have reviewed the radiologist's reading. Radiologist Impression: Please see the discussion above External Record Review External record reviewed: Outpatient record, Prior outpatient labs and Prior outpatient radiology Chronic Conditions Patient?s care impacted by: Diabetes Critical Care Time Critical Care Time Critical Care Time: Yes Total Critical Care Time: 30 Attestation: I personally attest to this time spent taking care of the patient. Discharge Plan Discharge Clinical Impression: Hypokalemia Patient Disposition: Home, Self-Care Instructions: Potassium Content of Foods List (ED), Hypokalemia (ED) Additional Instructions: 1. Resume all home medications as prescribed. 2. Recommend follow-up with your oncologist and primary care provider on Sunday morning. Return to the ER for any worsening symptoms or new symptoms. Prescriptions: No Action loperamide [Imodium A-D] 2 mg Tablet 2 mg PO Q4H PRN (Reason: Diarrhea) Qty: 30 2RF Rx Instructions: administer after each loose stool until symptoms controlled; do not exceed 8 mg per 24 hrs ondansetron 8 mg Tablet,Disintegrating 8 mg PO Q8H PRN (Reason: Nausea) Qty: 30 3RF oxycodone 5 mg Tablet 5 mg PO Q8H PRN (Reason: Pain) Qty: 30 0RF Rx Instructions: Partial Fill upon patient request. amlodipine [Norvasc] 10 mg Tablet 10 mg PO DAILY Qty: 30 3RF sennosides-docusate sodium [Senna with Docusate Sodium] 8.6-50 mg Tablet 1 tab-cap PO BEDTIME Qty: 30 0RF nitrofurantoin monohyd/m-cryst [Macrobid] 100 mg Capsule 100 mg PO Q12H Qty: 10 0RF Rx Instructions: must administer with a meal/food glipizide 10 mg tablet 10 mg PO BID atorvastatin 20 mg tablet 20 mg PO DAILY metoprolol succinate 50 mg tablet extended release 24 hr 75 mg PO DAILY losartan 100 mg tablet 100 mg PO DAILY Referrals: Marisel Christine MD [Physician] -
[2022-11-04 15:53] VITALS: BP 164/66; PULSE 82; RESP 20; TEMP 38.3; O2SAT 97; BMI 29.6
--- NOTE | 2022-11-04 15:53 | ECG_ITS ---
Test Reason : CHEST PAIN Blood Pressure : / mmHG Vent. Rate : 079 BPM Atrial Rate : 079 BPM P-R Int : 146 ms QRS Dur : 076 ms QT Int : 358 ms P-R-T Axes : 044 -02 -30 degrees QTc Int : 410 ms Normal sinus rhythm Minimal voltage criteria for LVH, may be normal variant ( R in aVL ) Nonspecific T wave abnormality Cannot rule out Anterior infarct , age undetermined Abnormal ECG When compared with ECG of 07-SEP-2022 08:42, Nonspecific T wave abnormality now evident in Lateral leads Referred By: Karen Qiunn Electronically Signed By:HEMAL VILA
[2022-11-04] MEDS: Ondansetron ODT 4 MG TAB.RAPDIS TRANSLINGU (16:03)
--- NOTE | 2022-11-04 16:53 | PC.NURSE ---
Port accessed and blood work drawn. Patient tolerated procedure well.
[2022-11-04 16:56] LABS: Basophils Percent Auto 0.5 % (0-2); Hematocrit 29.1 % (37.0-47.0); Hemoglobin 9.6 g/dl (12.0-16.0); Imm Gran Abs Auto 0.06 X10*3/uL (0.00-0.03); Lymphocytes Absolute Auto 0.3 X10*3/uL (1.2-4.9); Lymphocytes Percent Auto 5.1 % (20-40); MANUAL DIFF FLAG SCAN; Mean Corpuscular Hemoglobin 24.2 pg (27.0-33.0); Mean Corpuscular Volume 73.5 fL (80.0-98.0); Mean Platelet Volume 9.6 fL (9.4-12.3); Monocytes Absolute Auto 0.2 X10*3/uL (0.1-1.2); Monocytes Percent Auto 3.2 % (2-11); NRBC Pct Auto 0.3 /100WBC (0.0-0.2); Neutrophils Absolute Auto 5.7 x10*3/uL (2.0-8.3); Neutrophils Percent Auto 90.2 % (45-73); Platelet Count 207 X10*3/uL (160-400); Red Blood Count 3.96 X10*6/uL (4.20-5.50); Red Cell Distribution Width 15.8 % (11.0-16.0); SCAN SMEAR FLAG 1; White Blood Count 6.3 X10*3/uL (4.8-10.8)
[2022-11-04 17:03] LABS: INTERNATIONAL NORM RATIO 1.1 (0.9-1.1); Prothrombin Time 12.9 SEC (11.1-13.3)
[2022-11-04 17:06] LABS: Lactic Acid 1.2 mmol/L (0.5-2.0)
[2022-11-04 17:12] LABS: Alanine Aminotransferase 32 U/L (0-31); Albumin Level 3.8 g/dL (3.5-5.0); Alkaline Phosphatase 94 U/L (39-117); Anion Gap 11 (12-20); Aspartate Amino Transferase 36 U/L (5-31); Bilirubin Direct 0.3 mg/dL (0.0-0.5); Bilirubin Total 0.9 mg/dL (0.0-1.0); Blood Urea Nitrogen 11 mg/dL (9-16); Calcium 9.2 mg/dL (8.4-10.2); Carbon Dioxide 25 mmol/L (22-29); Chloride 105 mmol/L (96-108); Creatinine Clr Calc Pharmacy 77.8; Estimated Glomerular Filt Rate > 60; Glucose Random 63 mg/dL (60-115); Magnesium 1.7 mg/dL (1.6-2.6); Potassium 2.7 mmol/L (3.3-5.1); Sodium 138 mmol/L (135-145); Total Protein 6.7 g/dL (6.5-8.0)
[2022-11-04 17:15] LABS: SLIDE REVIEW VERIFIED
[2022-11-04 17:18] LABS: Troponin-I High Sensitivity 8.9 ng/L (<3.5-17.0)
[2022-11-04 17:20] LABS: IDNOW Serial# BCCEAD1C; Influenza A Negative (Negative); Influenza B2 Negative (Negative)
[2022-11-04 17:21] LABS: COVID-19 Test Negative (Negative); IDNOW Serial# 08D9AD1C
[2022-11-04] MEDS: Acetaminophen 325 MG TABLET 975 MG PO (17:28)
[2022-11-04 17:40] VITALS: BP 146/63; PULSE 65; RESP 20; O2SAT 96
[2022-11-04] MEDS: Potassium Chloride/H20 10 MEQ/100 ML PIGGYBACK 100 MEQ IV ×4 (17:53→22:31)
[2022-11-04 18:07] LABS: Appearance Urine Clear; Color Urine Yellow; Glucose Urine UA Negative (Negative); Leukocyte Esterase Urine Negative (Negative); Nitrite Urine Negative (Negative); Urine Blood Negative (Negative); Urine Ketones Negative (Negative); Urine Protein Trace mg/dL (Neg-Trace)
[2022-11-04 18:09] LABS: B Type Natriuretic Peptide 205 pg/mL (<100)
[2022-11-04 19:22] VITALS: BP 132/65; PULSE 67; RESP 14; TEMP 37.1; O2SAT 95
[2022-11-04 21:34] LABS: Anion Gap 11 (12-20); Blood Urea Nitrogen 9 mg/dL (9-16); Calcium 9.3 mg/dL (8.4-10.2); Carbon Dioxide 26 mmol/L (22-29); Chloride 107 mmol/L (96-108); Estimated Glomerular Filt Rate > 60; Glucose Random 85 mg/dL (60-115); Potassium 3.2 mmol/L (3.3-5.1); Sodium 141 mmol/L (135-145)
[2022-11-04 22:14] VITALS: BP 131/65; PULSE 96; RESP 16; TEMP 36.9; O2SAT 96
[2022-11-04] MEDS: Mag&Al/Sim/Diphenhyd/Lidocaine 10 ML ORAL.SUSP PO (22:32)
[2022-11-05] VITALS: BP 119/70; PULSE 87; RESP 17; TEMP 37.2; O2SAT 100
--- NOTE | 2022-11-05 00:31 | MHC.EDTECH ---
PATIENT WANT FOR A SHORT WALK ,PT WAS ABLE TO WALK INDEPENDENTLY ,GAIT WAS STEADY ,PROVIDER AWARE .
== END 2022-11-05 00:49 | disposition home or self-care (01) ==
PROVIDERS: Physician Assistant; Emergency Provider Student in an Organized Health Care Education/Training Program
DX: E87.6 Hypokalemia (principal); Z20.822 Contact with and (suspected) exposure to COVID-19; R50.9 Fever, unspecified; R07.9 Chest pain, unspecified; R10.11 Right upper quadrant pain; R10.13 Epigastric pain; C50.919 Malignant neoplasm of unspecified site of unspecified female breast; I10 Essential (primary) hypertension; E11.9 Type 2 diabetes mellitus without complications; Z92.21 Personal history of antineoplastic chemotherapy; Z79.899 Other long term (current) drug therapy
CPT/HCPCS: 36415; 71046; 76705; 80048; 80076; 81003; 83605; 83735; 83880; 84484; 85025; 85610; 87040; 87502; 87635; 93005; 96365; 96366; 99285

== ENCOUNTER 2022-12-08 09:50 | Outpatient (REF) | payer OTHER, SELFPAY ==
--- NOTE | ~2022-12-08 | XR_ITS ---
EXAMINATION: XR CHEST CLINICAL INFORMATION: Persistent cough. COMPARISON: Chest radiographs dated 11/04/2022. TECHNIQUE: Frontal and lateral views of the chest were obtained. FINDINGS: There is at least top normal cardiac size. The thoracic aorta is tortuous. There is mild pulmonary vascular congestion, without overt pulmonary edema. The lungs show no infiltrate, effusion or pneumothorax. No acute osseous abnormality is seen. There is multi-level thoracic spondylosis. A left subclavian Port-A-Cath device is noted. XR/XR chest 2V IMPRESSION: 1. No focal infiltrate is seen. 2. There is mild pulmonary vascular congestion, without overt pulmonary edema.
== END 2022-12-08 09:51 | disposition home or self-care (01) ==
LOC: HO.XRAY 09:50
PROVIDERS: Visit Provider Internal Medicine Medical Oncology
DX: R05.9 Cough, unspecified (principal)
CPT/HCPCS: 71046

== ENCOUNTER 2023-01-11 13:40 | Outpatient (REF) | payer OTHER, SELFPAY | END 2023-01-11 13:41 | disposition home or self-care (01) | LOC: HO.MRI 13:40 | PROVIDERS: Visit Provider Internal Medicine | DX: Z13.89 Encounter for screening for other disorder (principal) ==

== ENCOUNTER 2023-01-12 08:08 | Outpatient (REF) | payer OTHER, SELFPAY ==
--- NOTE | ~2023-01-12 | MR_ITS ---
EXAMINATION: MR BREAST WITHOUT AND WITH CONTRAST, BILATERAL CLINICAL INFORMATION: Right breast cancer status post lumpectomy 2022. Sr. Diagnosed with breast cancer in her 30s. COMPARISON: None available. TECHNIQUE: Imaging was performed with a dedicated breast coil. Prior to the administration of contrast, bilateral axial T1 and bilateral axial T2 weighted sequences were obtained. After the uneventful administration of?8.5 mL of Gadavist, dynamic contrast-enhanced VIBRANT series through the breasts in the axial plane were performed. Subtracted images were performed and reviewed. A delayed sagittal sequence through both breasts was acquired. Additionally, CAD post-processing, including maximum intensity projections, 3-D reconstructions and kinetic analysis, were performed an independent workstation and reviewed by the interpreting radiologist is a portion of this exam. FINDINGS: The breasts appear comprised of scattered fibroglandular elements. The tissue undergoes mild background enhancement. Minor motion artifact is noted. LEFT BREAST: No suspicious mass, dominant nonmass enhancement or architectural distortion. Comparison with mammography is required. RIGHT BREAST: There is a 3.5 cm intradermal cystic lesion in the right upper inner quadrant, T2 bright with rim enhancement, enhancement in the surrounding parenchyma, and skin thickening with increased T2 signal. This is presumably postoperative change. Follow in 6 months to assure resolution. Compare with mammography. T2-weighted sequence suggests bilateral retroareolar duct ectasia. No filling defects or abnormal enhancement identified. A 7 mm right breast cyst at 9:00, 3 cm from the nipple An indeterminate 6 mm right internal mammary node is identified (series 100 image 49/110). No suspicious axillary adenopathy. Limited views of the chest and abdomen are unremarkable. MR/MR breast BI wo/w con IMPRESSION: Presumed postoperative changes right breast upper inner with intradermal cystic lesion and surrounding enhancement. An indeterminate 6 mm right internal mammary node. ASSESSMENT: LEFT BREAST: BI-RADS 2, benign findings. RIGHT BREAST: BI-RADS 3, probably benign findings. RECOMMENDATIONS: 1. Comparison with bilateral mammography. 2. Repeat bilateral breast MRI in 6 months.
[2023-01-12] MEDS: gadobutroL 10 ML VIAL IVPUSH (09:06)
== END 2023-01-12 08:09 | disposition home or self-care (01) ==
LOC: HO.MRI 08:08
PROVIDERS: Visit Provider Internal Medicine
DX: C50.911 Malignant neoplasm of unspecified site of right female breast (principal)
CPT/HCPCS: 77049; A9585

== ENCOUNTER 2023-03-06 14:25 | Outpatient (AMB) | payer OTHER, SELFPAY ==
--- NOTE | 2023-03-06 14:32 | A.OFFVIS_ITS ---
Intake Vital Signs 3 03/06/23 14:45 Height 5 ft 8 in Weight 172 lb 2 oz BMI 26.2 BP 188/84 H Blood Pressure Location Lt brachial Position Sitting Pulse 95 Intake Visit Reasons: Invasive ductal carcinoma of right breast Intake Note: Patient is seen in office for follow up visit, following invasive ductal carcinoma of the right breast. Pt c/o: completed her chemotherapy and was refer by Dr Christine for possible mastectomy. 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 The mass initially started as a small parsons sized lesion which gradually increased in size with associated discomfort. She denies a previous history of breast problems or breast surgery. She does have a family history of a sister with breast cancer who subsequently succumbed from the disease. Her sister lived in [facility] and she is uncertain of what treatments she received. She was previously evaluated by the breast center at [facility] and arrangements made for an ultrasound-guided core biopsy. A previous CT of the chest did revealed a suspicious appearing cystic mass corresponding to the palpable lesion. Subsequent ultrasound guided core biopsy revealed invasive ductal carcinoma, grade 3, ER/OR negative, HER2 Ollie negative. The patient reports the lesion filled up with fluid within 24 hours of the previous aspiration. She is . [facility] Medical History Invasive ductal carcinoma of right breast Type 2 diabetes mellitus Hypertension Beta thalassemia Surgical History Triple negative malignant neoplasm of breast History of delivery (1982) Family History Sister Breast cancer Social History Household Members: None Housing: Apartment Alcohol intake: never Patient Tobacco Use Status: Never used Tobacco Advance Directives Date on File: 09/01/22 service: No Current occupational status: retired Female Reproductive History Menstrual Age of Menarche: 17 Review of Systems Const All systems reviewed & are unremarkable except as noted in HPI and below Denies chills, Denies fever(s), Denies headache(s), Denies poor appetite and Denies weakness ENT Denies headache(s) Card Denies chest pain, Denies irregular heart rhythm, Denies palpitations and Denies dyspnea Resp Denies cough, Denies excessive phlegm production and Denies dyspnea GI Denies abdominal pain, Denies bloating, Denies change in bowel habits, Denies constipation, Denies heartburn, Denies diarrhea, Denies nausea and Denies vomiting Denies urinary frequency and Denies nipple discharge Musc Denies back pain, Denies muscle weakness and Denies numbness Skin/Breast Reports breast skin changes, Reports breast pain, Reports breast mass, Denies changing lesions, Denies nipple discharge and Denies unusual bruising Neuro Denies headache(s), Denies numbness, Denies paresthesias and Denies weakness Psych Denies anxiety and Denies depression Endo Denies palpitations Mihir/Lymph Denies lymphadenopathy Physical Exam Vital Signs: Last Vital Signs Pulse 95 03/06/23 14:45 BP 188/84 H 03/06/23 14:45 BMI result Body Mass Index 26.2 Const General: no acute distress and well developed Nutritional Appearance: well nourished Orientation/consciousness: patient oriented x3 Limitations: no limitations HEENT Head: Yes normocephalic and Yes atraumatic Chest Other: Palpable right breast tumor as noted below, much improved from prior examination Chest/axillae images: 2 1. 3 cm area of discolored skin with underlying palpable mass extending down to chest wall, nontender to palpation consistent with residual tumor upper inner quadrant right breast Resp Effort & Inspection: normal respiratory effort, no audible wheezes, no cough and no respiratory distress GI Inspection: Yes normal to inspection Skin Other: Warm, dry, no rash Neuro General: patient oriented x3 Extrem General: Yes no clubbing, cyanosis or edema Assessment & Plan Assessment & Plan (1) Triple negative malignant neoplasm of breast: Code(s): C50.919 - Malignant neoplasm of unspecified site of unspecified female breast (2) Invasive ductal carcinoma of right breast: Code(s): C50.911 - Malignant neoplasm of unspecified site of right female breast Plan 82-year-old female patient found to have a large right breast breast cancer involving the upper inner quadrant, triple negative returning following neoadjuvant treatment completed approximately 2 weeks ago. She had a dramatic improvement in the size of the tumor and recent MRI confirmed reduction in the size of the tumor. She presents today to discuss possible mastectomy. I reviewed the indications for mastectomy in detail including the risks and benefits of the surgery verses other surgical options. After discussion of the procedure, risks, and alternatives, she consents to a modified radical mastectomy. This will be performed as a short-stay admit at her earliest convenience. She is welcome to call for any concerns or questions prior to the surgery. Coding Level of Care Code Est Pt Level 4 (26510) Diagnoses Triple negative malignant neoplasm of breast C50.919 Invasive ductal carcinoma of right breast C50.911
[2023-03-06 14:45] VITALS: BP 188/84; PULSE 95; BMI 26.2
== END 2023-03-06 15:12 | disposition home or self-care (01) ==
PROVIDERS: PCP Internal Medicine; Referring Provider Internal Medicine; Visit Provider Surgery
DX: C50.911 Malignant neoplasm of unspecified site of right female breast (principal)
CPT/HCPCS: 99214

== ENCOUNTER → 2023-03-06 14:25 | Outpatient (BNVA) | payer OTHER, SELFPAY | PROVIDERS: Referring Provider Internal Medicine; Visit Provider Surgery | DX: C50.211 Malignant neoplasm of upper-inner quadrant of right female breast (principal); Z17.1 Estrogen receptor negative status [ER-]; Z92.21 Personal history of antineoplastic chemotherapy | CPT/HCPCS: 99212 ==

== ENCOUNTER 2023-04-04 05:58 | Inpatient (IN) | payer OTHER, SELFPAY ==
[2023-03-23 09:57] VITALS: BP 130/68; PULSE 90; RESP 20; O2SAT 96; BMI 25.7
[2023-03-23 11:13] LABS: Hematocrit 31.2 % (37.0-47.0); Hemoglobin 9.8 g/dl (12.0-16.0); Mean Corpuscular HGB Conc 31.4 g/dl (31.0-35.0); Mean Corpuscular Hemoglobin 25.8 pg (27.0-33.0); Mean Corpuscular Volume 82.1 fL (80.0-98.0); Mean Platelet Volume 9.5 fL (9.4-12.3); Platelet Count 298 X10*3/uL (160-400); Red Cell Distribution Width 16.6 % (11.0-16.0); White Blood Count 9.9 X10*3/uL (4.8-10.8)
[2023-03-23 12:05] LABS: Anion Gap 13 (12-20); Blood Urea Nitrogen 10 mg/dL (9-16); Carbon Dioxide 28 mmol/L (22-29); Chloride 104 mmol/L (96-108); Creatinine Clr Calc Pharmacy 64.4; Estimated Glomerular Filt Rate > 60; Glucose Random 167 mg/dL (60-115); Potassium 3.7 mmol/L (3.3-5.1); Sodium 141 mmol/L (135-145)
[2023-04-04] VITALS (11 sets, daily range): BP systolic 126–179; BP diastolic 60–84; PULSE 65–109; RESP 13–18; TEMP 36.1–37.1; O2SAT 93–100; BMI 23.6
--- OUTSIDE RECORDS SUMMARY | 2023-04-04 06:05 | XMS_ITS | Continuity of Care Document ---
Author Name Unknown Organization [facility] Address [address] [place] [address]- Care Team Providers Care Wan Support Specialist Name Role Phone Roseline Ortega MD Primary Care Physician [place] [facility] [place]22 [facility] [address] [place], [place] [address] Attending Physician: Roseline Ortega MD Allergies, Adverse Reactions, Alerts Substance Reaction Severity Status metFORMIN myalgia Active Immunizations Given and Recorded Vaccine Date Status Refusal Reason [id number] 12y+ bivalent booster vax 02/16/22 Recorded SARS-CoV-2 (COVID-19) mRNA BNT-162b2 vac 03/22/21 Given SARS-CoV-2 (COVID-19) mRNA BNT-162b2 vac 07/11/20 Recorded SARS-CoV-2 (COVID-19) mRNA BNT-162b2 vac 06/20/20 Recorded influenza virus vaccine, inactivated 1 12/16/20 Gi leandra influenza virus vaccine, inactivated 2 12/12/19 Gi leandra influenza virus vaccine, inactivated 3 02/06/19 Gi leandra influenza virus vaccine, inactivated 4 12/20/17 Gi leandra influenza virus vaccine, inactivated 12/17/15 Give n influenza virus vaccine, inactivated 01/01/14 Give n influenza virus vaccine, inactivated 5 12/18/12 Gi leandra influenza virus vaccine, inactivated 6 02/09/12 Gi leandra influenza virus vaccine, inactivated 12/13/10 Give n tetanus-diphtheria toxoids (Td) 7 06/03/20 Given pneumococcal 13-valent vaccine 12/17/15 Given Pneumococcal Vaccine (oldterm) 07/26/10 Given Tetanus-Diphth Toxoids, Adult (oldterm) 8 07/26/10 Given pneumococcal 23-valent vaccine 10/31/07 Recorded 1Result Comment: pt. tolerated inj. without complications....[place] 2Result Comment: [facility] 46312-206-66 Pt tolerated vaccine without incident...NH 3Result Comment: [id number] 4Result Comment: [12/20/2017] [facility] 2] [id number] 5Result Comment: [12/18/2012] given w/o incidense...mh 6Admin Note: at work 7Result Comment: [facility] [address]-1 Pt tolerated vaccine without incident...NH 8Admin Note: GIVEN W/O INCEDENT Medications albuterol CFC free 90 mcg/inh inhalation aerosol 2, puffs, Inhalation, Every 6 hours, PRN, # 8.5 Gm, Refills 0, Tot. Refills 0, Maintenance, 03/10/22 15:49:00 EST, Route to Pharmacy Electronically, [id number], [facility] #[id number], 173, cm, 03/10/22 15:20:00 EST, Hei... Start Date: 03/10/22 Stop Date: 04/09/22 Status: Ordered aspirin 81 mg oral tablet 1 tablet = 81 mg, By Mouth, Daily, # 30 tablet, 0 Refills, Maintenance, 05/20/14 12:11:28, Tablet Start Date: 05/20/14 Status: Ordered atorvastatin 20 mg oral tablet 1 tablet, By Mouth, Daily, # 90 tablet, 1 Refills, 09/26/22 11:55:00 EDT, [facility] #[id number], 173, cm, 08/16/22 8:14:00 EDT, Height, 86, kg, 08/14/22 3:21:00 EDT, Dry Weight Start Date: 09/26/22 Status: Ordered chlorthalidone 50 mg oral tablet 2 tablet, By Mouth, Daily, # 180 tablet, 0 Refills, [facility] #[id number], 173, cm, 06/21/21 13:45:00 EDT, Height, 91.6, kg, 06/05/21 22:06:00 EDT, Dry Weight Start Date: 09/29/21 Status: Ordered FeroSul 325 mg oral tablet 1 tablet, By Mouth, Daily, # 100 tablet, 1 Refills, Maintenance, 07/23/20 12:40:00 EDT, [facility] #[id number], 174, cm, 06/10/20 10:35:00 EDT, Height, 90.2, kg, 04/10/19 10:04:00 EST, Dry Weight Start Date: 07/23/20 Status: Ordered Fish Oil 1000 mg oral capsule 1 capsule = 1,000 mg, By Mouth, 2 times a day, 0 Refills, Maintenance, 08/01/18 10:25:46 EDT Start Date: 08/01/18 Status: Ordered Flonase 50 mcg/inh nasal spray 1 sprays, Nares, Both, 2 times a day, # 16 Gm, 0 Refills, Maintenance, 03/10/22 15:48:00 EST, Coin, [facility] #[id number], Partial fill upon patient request if the prescription is for a schedule II opioid drug., 1 sprays Nares, Both 2 times a d... Start Date: 03/10/22 Stop Date: 04/09/22 Status: Ordered Freestyle Lite Lancets See Instructions, # 100 each, Refills 3, Tot. Refills 3, Maintenance, check once daily dx-E11.9, 03/22/21 12:37:00 EST, 174, cm, 12/16/20 14:06:00 EDT, Height, 90.2, kg, 04/10/19 10:04:00 EST, Dry Weight Start Date: 03/22/21 Status: Ordered Freestyle Lite Monitor See Instructions, # 1 each, Maintenance, check once daily dx-E11.9, 03/22/21 12:37:00 EST, 174, cm,12/16/20 14:06:00 EDT, Height, 90.2, kg, 04/10/19 10:04:00 EST, Dry Weight Start Date: 03/22/21 Status: Ordered Freestyle Lite Test Strips See Instructions, # 100 each, Refills 3, Tot. Refills 3, Maintenance, check once daily dx-E11.9, 03/22/21 12:37:00 EST, 174, cm, 12/16/20 14:06:00 EDT, Height, 90.2, kg, 04/10/19 10:04:00 EST, Dry Weight Start Date: 03/22/21 Status: Ordered glipiZIDE 10 mg oral tablet 1 tablet = 10 mg, By Mouth, 2 times a day, # 180 tablet, 1 Refills, Maintenance, 09/26/22 11:55:00 EDT, [facility] #[id number], dose increased from 5 mg, 173, cm, 08/16/22 8:14:00 EDT, Height, 86, kg, 08/14/22 3:21:00 EDT, Dry Weight Start Date: 09/26/22 Stop Date: 03/25/23 Status: Ordered lidocaine 5% topical film 1 patch, Topically, Daily, PRN Pain , Mild, remove after 12 hours, # 13 each, 0 Refills, Maintenance, 06/05/21 21:29:00 EDT, Film, [facility] #[id number], Partial fill upon patient request if the prescription is for a schedule II opioid drug., 1... Start Date: 06/05/21 Status: Ordered losartan 100 mg oral tablet 1 tablet, By Mouth, Daily, # 90 tablet, 1 Refills, Maintenance, 08/08/22 20:35:00 EDT, [facility] #[id number], 173, cm, 07/26/22 9:01:00 EDT, Height, 91.6, kg, 06/05/21 22:06:00 EDT, Dry Weight Start Date: 08/08/22 Status: Ordered Metoprolol Succinate ER 50 mg oral tablet, extended release 1 tablet = 50 mg, By Mouth, Daily, # 90 tablet, 1 Refills, Maintenance, 09/26/22 11:55:00 EDT, ER Tablet, [facility] #[id number], 173, cm, 08/16/22 8:14:00 EDT, Height, 86, kg, 08/14/22 3:21:00 EDT, Dry Weight Start Date: 09/26/22 Stop Date: 03/25/23 Status: Ordered Vitamin B12 1000 mcg oral tablet 1 tablet = 1,000 mcg, By Mouth, Daily, sublingual, 0 Refills, Maintenance, 08/01/18 10:26:09 EDT Start Date: 08/01/18 Status: Ordered Vitamin C 100 mg oral tablet 1 tablet, By Mouth, Daily, # 90 tablet, 0 Refills, Maintenance, Tablet Start Date: 12/08/09 Status: Ordered Vitamin D3 oral tablet 2000 unit, By Mouth, Daily, 0 Refills, Maintenance, 12/20/17 10:14:51 EDT Start Date: 12/20/17 Status: Ordered Problem List Condition Confirmation Course Effective Dates Status H ealth Status Informant Beta thalassemia, heterozygous Confirmed Active Diabetes mellitus type II Confirmed Active Hyperlipidemia Confirmed Active Hypertension Confirmed Active Social History Social History Type Response Smoking Status Never smoker; Tobacc o user in household: No entered on: 07/16/13 Sex Patient Care team information Care Team Personnel Name: Jordan STOCKTON, Roseline Frey Position: [facility] Physician - Primary Care Member Role: PCP Address: Address: [address] [place] [address] Adult & [place] [address]- Care Team Related Persons Name: DELIA STOLL Address: [place] [address] Name: LYNNE STOLL Address: [address] [address]
--- OUTSIDE RECORDS SUMMARY | 2023-04-04 06:05 | XMS_ITS | Continuity of Care Document ---
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 tolerated inj. without complications....CO 2Result Comment: [facility] 82039-898-62 Pt tolerated vaccine without incident...NH 3Result Comment: [id number] 4Result Comment: [12/20/2017] [facility] 42614-864-07 5Result Comment: [12/18/2012] given w/o incidense...mh 6Admin Note: at work 7Result Comment: [facility] [id number] Pt tolerated vaccine without incident...NH 8Admin Note: GIVEN W/O INCEDENT Medications 4 point cane 4 point cane, See Instructions, # 1 each, Refills 0, Tot. 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 Refills 0, Maintenance, 12/06/22 15:50:00 EDT, Route to Pharmacy Electronically, [id number], [facility][id number], 173, cm, 08/16/22 8:14:00 EDT, [place]... Start Date: 12/06/22 Stop Date: 01/05/23 Status: Ordered amLODIPine 10 mg oral tablet 1 tablet = 10 mg, 0 Refills, Maintenance, 12/11/22 12:41:00 EDT, Partial fill upon patient request if the prescription is for a schedule II opioid drug. Start Date: 12/11/22 Status: Ordered aspirin 81 mg oral tablet 1 tablet = 81 mg, By Mouth, Daily, # 30 tablet, 0 Refills, Maintenance, 05/20/14 12:11:28, Tablet Start Date: 05/20/14 Status: Ordered atorvastatin 20 mg oral tablet 1 tablet, By Mouth, Daily, # 90 tablet, 0 Refills, 12/06/22 15:50:00 EDT, [facility] #[id number], 173, cm, 08/16/22 8:14:00 EDT, Height, 86, kg, 08/14/22 3:21:00 EDT, Dry Weight Start Date: 12/06/22 Status: Ordered bedside commode bedside commode, See Instructions, # 1 each, Refills 0, Tot. 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, 12/11/22 12:33:00 EDT, Supply Start Date: 12/11/22 Status: Ordered FeroSul 325 mg oral tablet 1 tablet, By Mouth, Daily, # 100 tablet, 1 Refills, Maintenance, 07/23/20 12:40:00 EDT, [facility] #[id number], 174, cm, 06/10/20 10:35:00 EDT, Height, 90.2, [...] Gm, 0 Refills, Maintenance, 03/10/22 15:48:00 EST, [place], [facility] #[id number], Partial fill upon patient request if the [...] Dry Weight Start Date: 03/22/21 Status: Ordered gabapentin 300 mg oral capsule 300 mg, 1, capsule, By Mouth, 2 times a day, Refills 0, Maintenance, 12/11/22 12:41:00 EDT, Partialfill upon patient request if the prescription is for a schedule II opioid drug. Start Date: 12/11/22 Status: Ordered glipiZIDE 10 mg oral tablet 1 tablet = 10 mg, By Mouth, 2 times a day, # 180 tablet, 1 Refills, Maintenance, 09/26/22 11:55:00 EDT, [facility] #[id number], dose increased from 5 mg, 173, cm, 08/16/22 8:14:00 EDT, Height, 86, kg, 08/14/22 3:21:00 EDT, Dry Weight Start Date: 09/26/22 Stop Date: 03/25/23 Status: Ordered losartan 100 mg oral tablet 1 tablet, By Mouth, Daily, # 90 tablet, 1 Refills, Maintenance, 08/08/22 20:35:00 EDT, [facility] #[id number], 173, cm, 07/26/22 9:01:00 EDT, Height, 91.6, kg, 06/05/21 22:06:00 EDT, Dry Weight Start Date: 08/08/22 Status: Ordered Metoprolol Succinate ER 50 mg oral tablet, extended release 1 tablet = 50 mg, By Mouth, Daily, # 90 tablet, 0 Refills, Maintenance, 12/06/22 15:50:00 EDT, ER Tablet, [facility] #[id number], 173, cm, 08/16/22 8:14:00 EDT, Height, 86, kg, 08/14/22 3:21:00 EDT, Dry Weight Start Date: 12/06/22 Stop Date: 03/06/23 Status: Ordered Pullups -large size Pullups -large size, See Instructions, # 120 each, Refills 5, Tot. 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 Refills 0, Maintenance, use as directed duration -99 proximal muscle weakness due to chemotherapy / falls, 12/11/22 12:30:00 EDT, Supply Start Date: 12/11/22 Status: Ordered Vitamin B12 1000 mcg oral [...] Active Hyperlipidemia Confirmed Active Hypertension Confirmed Active Vital Signs Most recent to oldest [Reference Range]: 1 2 Height 173 cm (12/11/22 12:04 PM) 173 cm (12/11/22 11:59 AM) Weight 84.9 kg (12/11/22 11:59 AM) Oxygen Saturation [94-100 %] 98 % (12/11/22 11:59 AM) Pulse Rate [55-90 bpm] 79 bpm (12/11/22 11:59 AM) Body Mass Index [18.5-24.99 kg/m2] 28.37 kg/m2 *H* (12/11/22 11:59 AM) Blood Pressure [90-138/55-84 mm Hg] 159/ 78mm Hg *H* (12/11/22 12:04 PM) 183/70mm Hg *H* (12/11/22 11:59 AM) Mode of Delivery (Oxygen) Room air (12/11/22 11:59 AM) Blood pressure sites Arm, left (12/11/22 12:04 PM) Arm, left (12/11/22 11:59 AM) Weight Obtained Via Standing scale (12/11/22 11:59 AM) Social History Social History Type Response Smoking Status Never smoker; Tobacc o user in household: No entered on: 07/16/13 Sex EKG study * Event Display: ECG 12-Lead Authored Date: Please click on pdf link to open report * Event Display: ECG 12-Lead Authored Date: Ventricular Rate: 84 BPM Atrial Rate: 84 BPM P-R Interval: 142 ms QRS Duration: 78 ms Q-T Interval: 374 ms QTC Calculation(Bazett): 441 ms P Swink: 46 degrees R Swink: -8 degrees T Swink: -24 degrees Sinus rhythm with occasional Premature ventricular complexes Possible Left atrial enlargement Left ventricular hypertrophy T wave abnormality, consider anterolateral ischemia Abnormal ECG When compared with ECG of 21-JUN-2011 00:45, Premature ventricular complexes are now Present Vent. rate has increased BY 35 BPM Inverted T waves have replaced nonspecific T wave abnormality in Lateral leads Confirmed by ZANE NASSAR MD ([id number]) on 12/13/2022 10:44:29 AM [place]: ZANE NASSAR MD Note * Deanne Mcarthur: PERFORM, SIGN, VERIFY Event Display: Patient Education/Instruction Authored Date: [facility] *No [facility] Adult Ped Clinical Summary Name KRISTY STOLL Age 82 Years 1940 PCP Jordan STOCKTON, Roseline Frey PCP Visit Date 12/11/2022 11:50:00 Additional Instructions: Scheduled Appointments?? Future Appointments ?*No??[facility]??Adult??Ped ?[address]??[place],??[place],??[address] ?Phone:??--?Fax:??-- ?Appt. Date:??01/29/2023?11:50 AM ?Scheduled Provider:??Jordan STOCKTON , Roseline Frey Follow-Up Instructions ?? Diagnosis Cardiac arrhythmia, unspecified Medications: Please continue your medications until treatment is completed or stopped by your provider. Discuss any questions related to medications with your provider. 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 Refills: 0. 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 Refills: 0. 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 Refills: 5. 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 Refills: 0. Next Dose: Durable Medical Equipment (toilet seat riser) use as directed duration -99 proximal muscle weakness due to chemotherapy / falls. Refills: 0. Next Dose: Medications to Continue with No Changes These medications were not printed or sent to your pharmacy Albuterol (albuterol CFC free 90 mcg/inh inhalation aerosol) 2 puff(s) Inhalation every 6 hours as needed Wheezing/Shortness of Breath for 30 Days. Refills: 0. Next Dose: Amlodipine (amLODIPine 10 mg oral tablet) 1 tab(s). Next Dose: Ascorbic Acid (Vitamin C 100 mg oral tablet) 1 tab(s) Oral Daily. Next Dose: Aspirin (aspirin 81 mg oral tablet) 1 tab(s) Oral Daily. Next Dose: Atorvastatin (atorvastatin 20 mg oral tablet) 1 tab(s) Oral Daily. Refills: 0. Next Dose: Cholecalciferol (Vitamin D3 oral tablet) 2000 unit Oral Daily. Next Dose: Cyanocobalamin (Vitamin B12 1000 mcg oral tablet) 1 tab(s) Oral Daily. sublingual. Next Dose: Durable Medical Equipment (Freestyle Lite Lancets) check once daily dx-E11.9. Refills: 3. Next Dose: Durable Medical Equipment (Freestyle Lite Monitor) check once daily dx-E11.9. Refills: 0. Next Dose: Durable Medical Equipment (Freestyle Lite Test Strips) check once daily dx-E11.9. Refills: 3. Next Dose: Ferrous Sulfate (FeroSul 325 mg oral tablet) 1 tab(s) Oral Daily. Refills: 1. Next Dose: Fluticasone Nasal (Flonase 50 mcg/inh nasal spray) 1 spray(s) Nares, Both twice a day for 30 Days. Refills: 0. Next Dose: Gabapentin (gabapentin 300 mg oral capsule) 1 capsule Oral twice a day. Next Dose: GlipiZIDE (glipiZIDE 10 mg oral tablet) 1 tab(s) Oral twice a day for 90 Days. Refills: 1. Next Dose: Losartan (losartan 100 mg oral tablet) 1 tab(s) Oral Daily. Refills: 1. Next Dose: Metoprolol (Metoprolol Succinate ER 50 mg oral tablet, extended release) 1 tab(s) Oral Daily for 90Days. Refills: 0. Next Dose: [place]-3 Polyunsaturated Fatty Acids (Fish Oil 1000 mg oral capsule) 1 capsule Oral twice a day. Next Dose: No Longer Take the Following Medications Chlorthalidone (chlorthalidone 50 mg oral tablet) 2 tab(s) Oral Daily. Refills: 0. Allergy Info:?? metFORMIN Medications Given This Visit Future Orders ?No future orders Vital Signs Height 173 cm Weight 84.9 kg BMI 28.37 kg/m2 Blood Pressure 159 mm Hg/78 mm Hg Temperature Pulse Rate 79 bpm Respiratory Rate 02 Sat Mode of Delivery 98 %/Room air You can now view a summary of your hospital visit from the comfort of your home through a free online portal called [employer]. [employer] is a website that allows you to securely view your medical information including discharge summary, medications and follow-up visits. ??You can alsosend a secure electronic message to your doctor???s office to request appointments, renew medications or just ask a question. You can enroll at [email or web address] or register during your next office visit. Disclaimer:?? The information provided is of a general nature and is intended to be used in conjunction with the recommendations and advice of your health care practitioner. ??Every effort has been made to ensure that the information provided is accurate and complete at the time it is provided to you however, as your needs change, or, as new ??information becomes available, different or additional instructions may be required. If you have questions, please consult with your primary care provider or pharmacist, as appropriate. ??This information is not intended to serve as substitution for assessment and evaluation by a qualified health care provider. If you do not have a primary care provider, you may find a [facility] provider by calling [facility] [employer] Link at [phone]. [facility], in keeping with [facility] guidance, no longer requires face masks for staff, patientsor visitors in most situations. Similar to time spent indoors at other locations, there is the chance that you were exposed to respiratory viruses during your time with us (such as flu or COVID-19).? If you develop symptoms concerning for a viral respiratory infection, please seek testing (and treatment if indicated) from your medical provider or home test kit. For information about the plan of care including goals and instructions for your diagnosis, please see the patient education orders section of this document. Patient Education Materials?? The content of this educational material or handout may have been modified, supplemented, or adapted from its original content and format to support your individualized medical care. Patient Care team information Care Team Personnel Name: Jordan STOCKTON, Roseline Frey Position: [facility] Physician - Primary Care Member Role: PCP Address: Address: [address] [facility] [place] [address] [place] Care Team Related Persons Name: DELIA STOLL Address: [place] [address] Name: LYNNE STOLL Address: home [address] [place] [id number]
--- OUTSIDE RECORDS SUMMARY | 2023-04-04 06:05 | XMS_ITS | Continuity of Care Document ---
Author Name Unknown Organization [facility] Address [address] [place] [address]- Care Team Providers Care Strike Plate Attacher Name Role Phone Roseline Ortega MD Primary Care Physician [phone] Encounter [facility] Date(s): 12/24/22 - 01/23/23 [facility] [address] [place], [place] [address] Allergies, Adverse Reactions, Alerts Substance Reaction Severity Status metFORMIN myalgia Active Immunizations Given and Recorded Vaccine Date Status Refusal Reason [id number] 12y+ bivalent booster vax 02/16/22 Recorded SARS-CoV-2 [...] tolerated inj. without complications....CO 2Result Comment: [facility] [id number] Pt tolerated vaccine without incident...NH 3Result Comment: [id number] 4Result Comment: [12/20/2017] [facility] [id number] 5Result Comment: [12/18/2012] given w/o incidense...mh 6Admin Note: at work 7Result Comment: [facility] [address]-0 Pt tolerated vaccine without incident...NH 8Admin Note: [...] 12/06/22 15:50:00 EDT, Route to Pharmacy Electronically, [id number], [facility] #[id number], 173, cm, 08/16/22 8:14:00 EDT, [place]... Start [...] 90 tablet, 0 Refills, 12/06/22 15:50:00 EDT, [facility] #[id number], 173, cm, 08/16/22 8:14:00 EDT, Height, 86, [...] tablet, 1 Refills, Maintenance, 07/23/20 12:40:00 EDT, [facility] #[id number], 174, cm, 06/10/20 10:35:00 EDT, Height, 90.2, [...] Gm, 0 Refills, Maintenance, 03/10/22 15:48:00 EST, [place], [facility] #[id number], Partial fill upon patient request if the [...] tablet, 1 Refills, Maintenance, 09/26/22 11:55:00 EDT, [facility] #[id number], dose increased from 5 mg, 173, cm, 08/16/22 8:14:00 EDT, Height, 86, kg, 08/14/22 3:21:00 EDT, Dry Weight Start Date: 09/26/22 Stop Date: 03/25/23 Status: Ordered losartan 100 mg oral tablet 1 tablet, By Mouth, Daily, # 90 tablet, 1 Refills, Maintenance, 08/08/22 20:35:00 EDT, [facility] #[id number], 173, cm, 07/26/22 9:01:00 EDT, Height, 91.6, kg, 06/05/21 22:06:00 EDT, Dry Weight Start Date: 08/08/22 Status: Ordered Metoprolol Succinate ER 50 mg oral tablet, extended release 1 tablet = 50 mg, By Mouth, Daily, # 90 tablet, 0 Refills, Maintenance, 12/06/22 15:50:00 EDT, ER Tablet, [facility] #[id number], 173, cm, 08/16/22 8:14:00 EDT, Height, 86, [...] Care team information Care Team Personnel Name: Roseline Ortega MD Position: [facility] Physician - Primary Care Member Role: PCP Address: Address: [address] [place] [address] Adult & Pediatric [address] Care Team Related Persons Name: DELIA STOLL Address: [place] [address] Name: LYNNE STOLL Address: [address] [address]
--- OUTSIDE RECORDS SUMMARY | 2023-04-04 06:05 | XMS_ITS | Continuity of Care Document ---
Author Name Unknown Organization [facility] Address [address] [place] [address]- Care Team Providers Care Anime Designer Name Role Phone Roseline Ortega MD Primary Care Physician [phone] Encounter [facility] Date(s): 12/18/22 - 01/17/23 [facility] [address] [place], [place] [address] Allergies, Adverse Reactions, Alerts Substance Reaction Severity Status metFORMIN myalgia Active Immunizations Given and Recorded Vaccine Date Status Refusal Reason [id number] 12y+ bivalent booster vax 02/16/22 Recorded SARS-CoV-2 [...] pt. tolerated inj. without complications....[place] 2Result Comment: [facility] 66830-766-38 Pt tolerated vaccine without incident...NH 3Result Comment: [id number] 4Result Comment: [12/20/2017] [facility] [id number] 5Result Comment: [12/18/2012] given w/o incidense...mh 6Admin Note: at work 7Result Comment: [facility] [address]-0 Pt tolerated vaccine without incident...NH 8Admin Note: [...] 12/06/22 15:50:00 EDT, Route to Pharmacy Electronically, [id number], [facility] #[id number], 173, cm, 08/16/22 8:14:00 EDT, [place]... Start [...] 90 tablet, 0 Refills, 12/06/22 15:50:00 EDT, [facility] #[id number], 173, cm, 08/16/22 8:14:00 EDT, Height, 86, [...] tablet, 1 Refills, Maintenance, 07/23/20 12:40:00 EDT, [facility] #[id number], 174, cm, 06/10/20 10:35:00 EDT, Height, 90.2, [...] Gm, 0 Refills, Maintenance, 03/10/22 15:48:00 EST, [place], [facility] #[id number], Partial fill upon patient request if the [...] tablet, 1 Refills, Maintenance, 09/26/22 11:55:00 EDT, [facility] #[id number], dose increased from 5 mg, 173, cm, 08/16/22 8:14:00 EDT, Height, 86, kg, 08/14/22 3:21:00 EDT, Dry Weight Start Date: 09/26/22 Stop Date: 03/25/23 Status: Ordered losartan 100 mg oral tablet 1 tablet, By Mouth, Daily, # 90 tablet, 1 Refills, Maintenance, 08/08/22 20:35:00 EDT, [facility] #[id number], 173, cm, 07/26/22 9:01:00 EDT, Height, 91.6, kg, 06/05/21 22:06:00 EDT, Dry Weight Start Date: 08/08/22 Status: Ordered Metoprolol Succinate ER 50 mg oral tablet, extended release 1 tablet = 50 mg, By Mouth, Daily, # 90 tablet, 0 Refills, Maintenance, 12/06/22 15:50:00 EDT, ER Tablet, [facility] #[id number], 173, cm, 08/16/22 8:14:00 EDT, Height, 86, [...] Team Personnel Name: Roseline Ortega MD Position: [facility] Physician - Primary Care Member Role: PCP Address: Address: [address] [place] [address] Adult & Pediatric [address] Care Team Related Persons Name: DELIA STOLL Address: [place] [address] Name: LYNNE STOLL Address: [address] [address]
--- OUTSIDE RECORDS SUMMARY | 2023-04-04 06:05 | XMS_ITS | Continuity of Care Document ---
Author Name Unknown Organization [facility] Address [address] [place] [address]- Care Team Providers Care Senior Editor Name Role Phone Jordan STOCKTON, Roseline Frey Primary Care Physician [phone] Encounter [facility] Date(s): 03/27/21 - 04/26/21 [facility] [address] [place], [place] [address] Allergies, Adverse Reactions, Alerts Substance Reaction Severity Status metFORMIN myalgia Active Immunizations Given and Recorded Vaccine Date Status Refusal Reason SARS-CoV-2 (COVID-19) mRNA BNT-162b2 vac 03/22/21 Given [...] Tetanus-Diphth Toxoids, Adult (oldterm) 8 07/26/10 Given 1Result Comment: pt. tolerated inj. without complications....CO 2Result Comment: [facility] 00649-910-37 Pt tolerated vaccine without incident...NH 3Result Comment: [id number] 4Result Comment: [12/20/2017] [facility] [id number] 5Result Comment: [12/18/2012] given w/o incidense...mh 6Admin Note: at work 7Result Comment: [facility] [address]-9 Pt tolerated vaccine without incident...NH 8Admin Note: GIVEN W/O INCEDENT Medications aspirin 81 mg oral tablet 1 tablet = 81 mg, By Mouth, Daily, # 30 tablet, 0 Refills, Maintenance, 05/20/14 12:11:28, Tablet Start Date: 05/20/14 Status: Ordered atorvastatin 20 mg oral tablet 1 tablet = 20 mg, By Mouth, Daily, # 90 tablet, 1 Refills, Maintenance, 12/16/20 14:26:00 EDT, Tablet, [facility] #[id number], simvastatin discontinued, lipids not at goal, 174, cm, 12/16/20 14:06:00 EDT, Height, 90.2, kg, 04/10/19 10:04:00 EST,... Start Date: 12/16/20 Stop Date: 06/14/21 Status: Ordered chlorthalidone 50 mg oral tablet 2 tablet = 100 mg, By Mouth, Daily, # 180 tablet, 1 Refills, Maintenance, 12/16/20 14:26:00 EDT, Tablet, [facility] #[id number], dose increased from 50 mg daily, 174, cm, 12/16/20 14:06:00 EDT, Height, 90.2, kg, 04/10/19 10:04:00 EST, Dry Weight Start Date: 12/16/20 Stop Date: 06/14/21 Status: Ordered FeroSul 325 mg oral tablet 1 tablet, By Mouth, Daily, # 100 tablet, 1 Refills, Maintenance, 07/23/20 12:40:00 EDT, [facility] #[id number], 174, cm, 06/10/20 10:35:00 EDT, Height, 90.2, kg, 04/10/19 10:04:00 EST, Dry Weight Start Date: 07/23/20 Status: Ordered Fish Oil 1000 mg oral capsule 1 capsule = 1,000 mg, By Mouth, 2 times a day, 0 Refills, Maintenance, 08/01/18 10:25:46 EDT Start Date: 08/01/18 Status: Ordered Freestyle Lite Lancets See Instructions, [...] day, # 180 tablet, 1 Refills, Maintenance, 12/16/20 14:26:00 EDT, [facility] #[id number], dose increased from 5 mg, 174, cm, 12/16/20 14:06:00 EDT, Height, 90.2, kg, 04/10/19 10:04:00 EST, Dry Weight Start Date: 12/16/20 Stop Date: 06/14/21 Status: Ordered losartan 100 mg oral tablet 1 tablet = 100 mg, By Mouth, Daily, # 90 tablet, 1 Refills, Maintenance, 12/16/20 14:26:00 EDT, Tablet, [facility] #[id number], change from losartan-hctz, 174, cm, 12/16/20 14:06:00 EDT, Height,90.2, kg, 04/10/19 10:04:00 EST, Dry Weight Start Date: 12/16/20 Status: Ordered Metoprolol Succinate ER 50 mg oral tablet, extended release 1 tablet = 50 mg, By Mouth, Daily, # 90 tablet, 1 Refills, Maintenance, 12/16/20 14:26:00 EDT, ER Tablet, [facility] #[id number], 174, cm, 12/16/20 14:06:00 EDT, Height, 90.2, kg, 04/10/19 10:04:00 EST, Dry Weight Start Date: 12/16/20 Stop Date: 06/14/21 Status: Ordered Vitamin B12 1000 mcg oral [...] Date: 12/20/17 Status: Ordered Problem List Condition Effective Dates Status Health Status Inform ant Beta thalassemia, heterozygous(Confirmed) Active Diabetes mellitus type II(Confirmed) Active Hyperlipidemia(Confirmed) Active Hypertension(Confirmed) Active Social History Social History Type Response Smoking Status Never smoker; Tobacc o user in household: No entered on: 07/16/13 Sex
--- OUTSIDE RECORDS SUMMARY | 2023-04-04 06:05 | XMS_ITS | Continuity of Care Document ---
Author Name Unknown Organization [facility] Address [address] [place] [address]- Care Team Providers Care Service Observer Name Role Phone Roseline Ortega MD Primary Care Physician Encounter [facility] Date(s): 10/04/20 - 10/11/20 [facility] [address] [place], [place] [address] Attending Physician: Roseline Ortega MD Allergies, Adverse Reactions, Alerts Substance Reaction Severity Status metFORMIN myalgia Active Immunizations Given and Recorded Vaccine Date Status Refusal Reason SARS-CoV-2 (COVID-19) mRNA BNT-162b2 vac 07/11/20 Recorded SARS-CoV-2 (COVID-19) mRNA BNT-162b2 vac 06/20/20 Recorded tetanus-diphtheria toxoids (Td) 1 06/03/20 Given influenza virus vaccine, inactivated 2 12/12/19 Gi leandra influenza virus vaccine, inactivated 3 02/06/19 Gi leandra influenza virus vaccine, inactivated 4 12/20/17 Gi leandra influenza virus vaccine, inactivated 12/17/15 Give n influenza virus vaccine, inactivated 01/01/14 Give n influenza virus vaccine, inactivated 5 12/18/12 Gi leandra influenza virus vaccine, inactivated 6 02/09/12 Gi leandra influenza virus vaccine, inactivated 12/13/10 Give n pneumococcal 13-valent vaccine 12/17/15 Given Pneumococcal Vaccine (oldterm) 07/26/10 Given Tetanus-Diphth Toxoids, Adult (oldterm) 7 07/26/10 Given 1Result Comment: [facility] [address]-0 Pt tolerated vaccine without incident...CT 2Result Comment: [facility] 49463-734-48 Pt tolerated vaccine without incident...CT 3Result Comment: [id number] 4Result Comment: [12/20/2017] [facility] [id number] 5Result Comment: [12/18/2012] given w/o incidense...mh 6Admin Note: at work 7Admin Note: GIVEN W/O INCEDENT Medications aspirin 81 mg oral tablet 1 tablet = 81 mg, By Mouth, Daily, # 30 tablet, 0 Refills, Maintenance, 05/20/14 12:11:28, Tablet Start Date: 05/20/14 Status: Ordered atorvastatin 20 mg oral tablet 1 tablet = 20 mg, By Mouth, Daily, # 90 tablet, 1 Refills, Maintenance, 09/10/20 15:34:00 EDT, Tablet, [facility] #[id number], simvastatin discontinued, lipids not at goal, 174, cm, 06/10/20 10:35:00 EDT, Height, 90.2, kg, 04/10/19 10:04:00 EST,... Start Date: 09/10/20 Stop Date: 03/09/21 Status: Ordered chlorthalidone 50 mg oral tablet 2 tablet = 100 mg, By Mouth, Daily, # 180 tablet, 3 Refills, Maintenance, 02/25/20 12:03:00 EST, Tablet, [facility] #[id number], dose increased from 50 mg daily, 174, cm, 02/25/20 11:26:00 EST, Height, 90.2, kg, 04/10/19 10:04:00 EST, Dry Weight Start Date: 02/25/20 Stop Date: 02/19/21 Status: Ordered FeroSul 325 mg oral tablet 1 tablet, By Mouth, Daily, # 100 tablet, 1 Refills, Maintenance, 07/23/20 12:40:00 EDT, [facility] #[id number], 174, cm, 06/10/20 10:35:00 EDT, Height, 90.2, [...] Refills 3, Maintenance, check once daily dx-E11.9, 06/10/20 10:47:00 EDT, 174, cm, 06/10/20 10:35:00 EDT, Height, 90.2, kg, 04/10/19 10:04:00 EST, Dry Weight Start Date: 06/10/20 Status: Ordered Freestyle Lite Monitor See Instructions, # 1 each, Maintenance, 250.02 check bid-ac, 05/12/11 12:35:51 Start Date: 05/12/11 Status: Ordered Freestyle Lite Test Strips See Instructions, # 100 each, Refills 3, Tot. Refills 3, Maintenance, check once daily dx-E11.9, 06/10/20 10:47:00 EDT, 174, cm, 06/10/20 10:35:00 EDT, Height, 90.2, kg, 04/10/19 10:04:00 EST, Dry Weight Start Date: 06/10/20 Status: Ordered glipiZIDE 10 mg oral tablet 1 tablet = 10 mg, By Mouth, 2 times a day, # 180 tablet, 1 Refills, Maintenance, 07/23/20 12:39:00 EDT, [facility] #[id number], dose increased from 5 mg, 174, cm, 06/10/20 10:35:00 EDT, Height, 90.2, kg, 04/10/19 10:04:00 EST, Dry Weight Start Date: 07/23/20 Stop Date: 01/19/21 Status: Ordered losartan 100 mg oral tablet 1 tablet = 100 mg, By Mouth, Daily, # 90 tablet, 0 Refills, Maintenance, 02/16/20 7:38:00 EST, Tablet, [facility] #[id number], change from losartan- hctz, 174, cm, 01/21/20 10:35:00 EST, Height, 90.2, kg, 04/10/19 10:04:00 EST, Dry Weight Start Date: 02/16/20 Status: Ordered Metoprolol Succinate ER 50 mg oral tablet, extended release 1 tablet = 50 mg, By Mouth, Daily, # 90 tablet, 1 Refills, Maintenance, 07/23/20 12:39:00 EDT, ER Tablet, [facility] #[id number], 174, cm, 06/10/20 10:35:00 EDT, Height, 90.2, kg, 04/10/19 10:04:00 EST, Dry Weight Start Date: 07/23/20 Stop Date: 01/19/21 Status: Ordered Vitamin B12 1000 mcg oral [...] type II(Confirmed) Active Hyperlipidemia(Confirmed) Active Hypertension(Confirmed) Active Vital Signs Most recent to oldest [Reference Range]: 1 2 Height 174 cm (10/04/20 3:02 PM) 174 cm (10/04/20 2:54 PM) Weight 82.8 kg (10/04/20 2:54 PM) Oxygen Saturation [94-100 %] 99 % (10/04/20 2:54 PM) Pulse Rate [55-90 bpm] 63 bpm (10/04/20 2:54 PM) Body Mass Index [18.5-24.99] 27.35 *H* (10/04/20 2:54 PM) Blood Pressure [90-138/55-84 mm Hg] 176/ 90mm Hg *H* (10/04/20 3:02 PM) 170/90mm Hg *H* (10/04/20 2:54 PM) Temperature [96.8-100.4 DegF] 98.5 DegF (10/04/20 2:54 PM) Mode of Delivery (Oxygen) Room air (10/04/20 2:54 PM) Blood pressure sites Arm, left (10/04/20 3:02 PM) Arm, left (10/04/20 2:54 PM) Temperature Route Temporal (10/04/20 2:54 PM) Weight Obtained Via Standing scale (10/04/20 2:54 PM) Social History Social History Type Response Smoking Status Never smoker; Tobacc o user in household: No entered on: 07/16/13 Sex
--- OUTSIDE RECORDS SUMMARY | 2023-04-04 06:05 | XMS_ITS | Continuity of Care Document ---
Author Name Unknown Organization [facility] Address [address] [place] [address]- Care Team Providers Care Sales Project Administrator Name Role Phone Roseline Ortega MD Primary Care Physician Encounter [facility] Date(s): 12/25/22 - 01/24/23 [facility] [address] [place], [place] [address] Allergies, Adverse Reactions, Alerts Substance Reaction Severity Status metFORMIN myalgia Active Immunizations Given and Recorded Vaccine Date Status Refusal Reason [id number] 12y+ bivalent booster vax 02/16/22 Recorded SARS-CoV-2 [...] influenza virus vaccine, inactivated 12/13/10 Give n influenza virus vaccine, inactivated 11/22/07 Rashaad rded tetanus-diphtheria toxoids (Td) 7 06/03/20 Given tetanus-diphtheria toxoids (Td) 10/31/07 Recorded pneumococcal 13-valent vaccine 12/17/15 Given Pneumococcal Vaccine (oldterm) 07/26/10 Given Tetanus-Diphth Toxoids, Adult (oldterm) 8 07/26/10 Given pneumococcal 23-valent vaccine 10/31/07 Recorded 1Result Comment: pt. tolerated inj. without complications....CO 2Result Comment: [facility] 52059-474-41 Pt tolerated vaccine without incident...NH 3Result Comment: [id number] 4Result Comment: [12/20/2017] [facility] 48407-558-53 5Result Comment: [12/18/2012] given w/o incidense...mh 6Admin Note: at work 7Result Comment: [facility] [address]-0 Pt tolerated vaccine without incident...NH 8Admin Note: [...] 12/06/22 15:50:00 EDT, Route to Pharmacy Electronically, [id number], [facility] #[id number], 173, cm, 08/16/22 8:14:00 EDT, .. Start Date: 12/06/22 Stop Date: 01/05/23 Status: [...] 90 tablet, 0 Refills, 12/06/22 15:50:00 EDT, [facility] #[id number], 173, cm, 08/16/22 8:14:00 EDT, Height, 86, [...] tablet, 1 Refills, Maintenance, 07/23/20 12:40:00 EDT, [facility] #[id number], 174, cm, 06/10/20 10:35:00 EDT, Height, 90.2, [...] Gm, 0 Refills, Maintenance, 03/10/22 15:48:00 EST, [place], [facility] #[id number], Partial fill upon patient request if the [...] tablet, 1 Refills, Maintenance, 09/26/22 11:55:00 EDT, [facility] #[id number], dose increased from 5 mg, 173, cm, 08/16/22 8:14:00 EDT, Height, 86, kg, 08/14/22 3:21:00 EDT, Dry Weight Start Date: 09/26/22 Stop Date: 03/25/23 Status: Ordered losartan 100 mg oral tablet 1 tablet, By Mouth, Daily, # 90 tablet, 1 Refills, Maintenance, 08/08/22 20:35:00 EDT, [facility] #[id number], 173, cm, 07/26/22 9:01:00 EDT, Height, 91.6, kg, 06/05/21 22:06:00 EDT, Dry Weight Start Date: 08/08/22 Status: Ordered Metoprolol Succinate ER 50 mg oral tablet, extended release 1 tablet = 50 mg, By Mouth, Daily, # 90 tablet, 0 Refills, Maintenance, 12/06/22 15:50:00 EDT, ER Tablet, [facility] #[id number], 173, cm, 08/16/22 8:14:00 EDT, Height, 86, [...] Personnel Name: Jordan STOCKTON, Roseline Frey Position: [facility] Physician - Primary Care Member Role: PCP Address: Address: [address] [place] [address] Adult [place] [address]- Care Team Related Persons Name: DELIA STOLL Address: [place] [address] Name: LYNNE STOLL Address: [address] [address]
--- OUTSIDE RECORDS SUMMARY | 2023-04-04 06:05 | XMS_ITS | Continuity of Care Document ---
Author Name Unknown Organization [facility] Address [address] [place] [address]- Care Team Providers Care Well Control Instructor Name Role Phone Roseline Ortega MD Primary Care Physician Encounter [facility] Date(s): 03/10/22 - 03/17/22 [facility] [address] [place] [address]- Attending Physician: Roseline Ortega MD Allergies, Adverse Reactions, Alerts Substance Reaction Severity Status metFORMIN myalgia Active Immunizations Given and Recorded Vaccine Date Status Refusal Reason [id number] 12y+ bivalent booster vax 02/16/22 Recorded SARS-CoV-2 [...] 07/26/10 Given Tetanus-Diphth Toxoids, Adult (oldterm) 8 5/24/11 Given 1Result Comment: pt. tolerated inj. without complications....CO 2Result Comment: [facility] 54769-961-84 Pt tolerated vaccine without incident...NH 3Result Comment: [id number] 4Result Comment: [12/20/2017] [facility][note 3] 60728-315-51 5Result Comment: [12/18/2012] given w/o incidense...mh 6Admin Note: at work 7Result Comment: [facility] [address]-2 Pt tolerated vaccine without incident...NH 8Admin Note: GIVEN W/O INCEDENT Medications albuterol CFC free 90 mcg/inh inhalation aerosol 2, puffs, Inhalation, Every 6 hours, PRN, # 8.5 Gm, Refills 0, Tot. Refills 0, Maintenance, 03/10/22 15:49:00 EST, Route to Pharmacy Electronically, [id number], [facility] #[id number], 173, cm, 03/10/22 15:20:00 EST, Hei... Start Date: 03/10/22 Stop Date: 04/09/22 Status: Ordered aspirin 81 mg oral tablet 1 tablet = 81 mg, By Mouth, Daily, # 30 tablet, 0 Refills, Maintenance, 05/20/14 12:11:28, Tablet Start Date: 05/20/14 Status: Ordered atorvastatin 20 mg oral tablet 1 tablet, By Mouth, Daily, # 90 tablet, 1 Refills, 10/11/21 10:22:00 EDT, [facility] #[id number], 173, cm, 10/11/21 10:04:00 EDT, Height, 91.6, kg, 06/05/21 22:06:00 EDT, Dry Weight Start Date: 10/11/21 Status: Ordered chlorthalidone 50 mg oral tablet 2 tablet, By Mouth, Daily, # 180 tablet, 0 Refills, [facility] #[id number], 173, cm, 06/21/21 13:45:00 EDT, Height, 91.6, kg, 06/05/21 22:06:00 EDT, Dry Weight Start Date: 09/29/21 Status: Ordered FeroSul 325 mg oral tablet 1 tablet, By Mouth, Daily, # 100 tablet, 1 Refills, Maintenance, 07/23/20 12:40:00 EDT, [facility] #[id number], 174, cm, 06/10/20 10:35:00 EDT, Height, 90.2, [...] Gm, 0 Refills, Maintenance, 03/10/22 15:48:00 EST, [place], [facility] #[id number], Partial fill upon patient request if the [...] day, # 180 tablet, 1 Refills, Maintenance, 10/11/21 10:22:00 EDT, [facility] #[id number], dose increased from 5 mg, 173, cm, 10/11/21 10:04:00 EDT, Height, 91.6, kg, 06/05/21 22:06:00 EDT, Dry Weight Start Date: 10/11/21 Stop Date: 04/09/22 Status: Ordered lidocaine 5% topical film 1 patch, Topically, Daily, PRN Pain , Mild, remove after 12 hours, # 13 each, 0 Refills, Maintenance, 06/05/21 21:29:00 EDT, [place], [facility] #[id number], Partial fill upon patient request if the prescription is for a schedule II opioid drug., 1... Start Date: 06/05/21 Status: Ordered losartan 100 mg oral tablet 1 tablet, By Mouth, Daily, # 90 tablet, 1 Refills, Maintenance, 02/07/22 7:41:00 EST, [facility] #[id number], 173, cm, 10/25/21 15:43:00 EDT, Height, 91.6, kg, 06/05/21 22:06:00 EDT, Dry Weight Start Date: 02/07/22 Status: Ordered Metoprolol Succinate ER 50 mg oral tablet, extended release 1 tablet = 50 mg, By Mouth, Daily, # 90 tablet, 1 Refills, Maintenance, 10/11/21 10:22:00 EDT, ER Tablet, [facility] #[id number], 173, cm, 10/11/21 10:04:00 EDT, Height, 91.6, kg, 06/05/21 22:06:00 EDT, Dry Weight Start Date: 10/11/21 Stop Date: 04/09/22 Status: Ordered Vitamin B12 1000 mcg oral [...] [Reference Range]: 1 2 Height 173 cm (03/10/22 3:20 PM) 173 cm (03/10/22 3:15 PM) Weight 88.2 kg (03/10/22 3:15 PM) Oxygen Saturation [94-100 %] 98 % (03/10/22 3:15 PM) Pulse Rate [55-90 bpm] 58 bpm (03/10/22 3:15 PM) Body Mass Index [18.5-24.99 kg/m2] 29.47 kg/m2 *H* (03/10/22 3:15 PM) Blood Pressure [90-138/55-84 mm Hg] 216/ 98mm Hg *H* (03/10/22 3:20 PM) 220/92mm Hg *H* (03/10/22 3:15 PM) Mode of Delivery (Oxygen) Room air (03/10/22 3:15 PM) Blood pressure sites Arm, left (03/10/22 3:20 PM) Arm, left (03/10/22 3:15 PM) Weight Obtained Via Standing scale (03/10/22 3:15 PM) Social History Social History Type Response Smoking Status Never smoker; Tobacc o user in household: No entered on: 07/16/13 Sex Note * Luz Marina Drew: PERFORM, SIGN, VERIFY Event Display: Patient Education/Instruction Authored Date: [id number] [facility] *[facility] Clinical Summary Name KRISTY STOLL Age 81 Years 1940 PCP Jordan STOCKTON, Roseline Frey PCP Visit Date 03/10/2022 14:47:00 Patient Instructions use flonase nasal spray twice daily for 4 weeks use albuterol inhaler before bedtime steam/ hot shower sugar free robitussin cough syrup please resume all othe rmedications without delay call if you dont feel well, we can do chest xray and then antibiotics. Additional Instructions: Scheduled Appointments?? Future Appointments ?*No??[facility] ?[address]??[place],??[place],??[address] ?Phone:??--?Fax:??-- ?Appt. Date:??04/06/2022?1:40 PM ?Scheduled Provider:??Jordan STOCKTON , Roseline Frey Follow-Up Instructions ?? Diagnosis Cough, unspecified; Postnasal drip; Nasal congestion Medications: Please continue your medications until treatment is completed or stopped by your provider. Discuss any questions related to medications with your provider. New Medications [facility] #[id number], [address], [place] [id number], [phone] Albuterol (albuterol CFC free 90 mcg/inh inhalation aerosol) 2 puff(s) Inhalation every 6 hours as needed Wheezing/Shortness of Breath for 30 Days. Refills: 0. Next Dose: Fluticasone Nasal (Flonase 50 mcg/inh nasal spray) 1 spray(s) Nares, Both twice a day for 30 Days. Refills: 0. Next Dose: Medications to Continue with No Changes These medications were not printed or sent to your pharmacy Ascorbic Acid (Vitamin C 100 mg oral tablet) 1 tab(s) Oral Daily. Next Dose: Aspirin (aspirin 81 mg oral tablet) 1 tab(s) Oral Daily. Next Dose: Atorvastatin (atorvastatin 20 mg oral tablet) 1 tab(s) Oral Daily. Refills: 1. Next Dose: Chlorthalidone (chlorthalidone 50 mg oral tablet) 2 tab(s) Oral Daily. Refills: 0. Next Dose: [...] tab(s) Oral Daily. Refills: 1. Next Dose: GlipiZIDE (glipiZIDE 10 mg oral tablet) 1 tab(s) Oral twice a day for 90 Days. Refills: 1. Next Dose: Lidocaine Topical (lidocaine 5% topical film) 1 patch(es) Topically Daily as needed Pain , Mild. remove after 12 hours. Refills: 0. Next Dose: Losartan (losartan 100 mg oral tablet) 1 tab(s) Oral Daily. Refills: 1. Next Dose: Metoprolol (Metoprolol Succinate ER 50 mg oral tablet, extended release) 1 tab(s) Oral Daily for 90Days. Refills: 1. Next Dose: [place]-3 Polyunsaturated Fatty Acids (Fish Oil 1000 mg oral capsule) 1 capsule Oral twice a day. Next Dose: Allergy Info:?? metFORMIN Medications Given This Visit Future Orders ?No future orders Vital Signs Height 173 cm Weight 88.2 kg BMI 29.47 kg/m2 Blood Pressure 216 mm Hg/98 mm Hg Temperature Pulse Rate 58 bpm Respiratory Rate 02 Sat Mode of Delivery 98 %/Room air You can now view a summary of your hospital visit from the comfort of your home through a free online portal called OneMore[employer]. OneMore[employer] is a website that allows you to securely view your medical information including discharge summary, medications and follow-up visits. ??You can alsosend a secure electronic message to your doctor???s office to request appointments, renew medications or just ask a question. You can enroll at [email or web address] or register during your next office visit. [...] primary care provider, you may find a [facility] provider by calling [facility] [employer] at [phone]. For information about the plan of care [...] Personnel Name: Jordan STOCKTON, Roseline Frey Position: [facility] Primary Care Physician Member Role: PCP Address: Address: [address] [place] [address] Adult [place] [address]- Care Team Related Persons Name: DELIA STOLL Address: [place] [address] Name: LYNNE STOLL Address: [address] [address]
--- OUTSIDE RECORDS SUMMARY | 2023-04-04 06:05 | XMS_ITS | Continuity of Care Document ---
Author Name Unknown Organization [facility] Address [address] [place] [address]- Care Team Providers Care Membership Correspondent Name Role Phone Roseline Ortega MD Primary Care Physician Encounter [facility] Date(s): 08/23/22 - 09/22/22 [facility] [address] [place], [place] [address] Attending Physician: Alisha Moser Admitting Physician: AdmAlisha delarosa Referring Physician: Admtr ArJennifer Allergies, Adverse Reactions, Alerts Substance Reaction Severity Status metFORMIN myalgia Active Immunizations Given and Recorded Vaccine Date Status Refusal Reason [id number] 12y+ bivalent booster vax 02/16/22 Recorded SARS-CoV-2 [...] pt. tolerated inj. without complications....CO 2Result Comment: [facility] 31403-418-93 Pt tolerated vaccine without incident...NH 3Result Comment: [id number] 4Result Comment: [12/20/2017] [facility] 71307-740-86 5Result Comment: [12/18/2012] given w/o incidense...mh 6Admin Note: at work 7Result Comment: [facility] [address]-5 Pt tolerated vaccine without incident...NH 8Admin Note: GIVEN W/O INCEDENT Medications albuterol CFC free 90 mcg/inh inhalation aerosol 2, puffs, Inhalation, Every 6 hours, PRN, # 8.5 Gm, Refills 0, Tot. Refills 0, Maintenance, 03/10/22 15:49:00 EST, Route to Pharmacy Electronically, [id number], [facility] #[id number], 173, cm, 03/10/22 15:20:00 EST, Hei... Start Date: 03/10/22 Stop Date: 04/09/22 Status: Ordered aspirin 81 mg oral tablet 1 tablet = 81 mg, By Mouth, Daily, # 30 tablet, 0 Refills, Maintenance, 05/20/14 12:11:28, Tablet Start Date: 05/20/14 Status: Ordered atorvastatin 20 mg oral tablet 1 tablet, By Mouth, Daily, # 90 tablet, 1 Refills, 10/11/21 10:22:00 EDT, [facility] #[id number], 173, cm, 10/11/21 10:04:00 EDT, Height, 91.6, kg, 06/05/21 22:06:00 EDT, Dry Weight Start Date: 10/11/21 Status: Ordered chlorthalidone 50 mg oral tablet 2 tablet, By Mouth, Daily, # 180 tablet, 0 Refills, [facility] #[id number], 173, cm, 06/21/21 13:45:00 EDT, Height, 91.6, kg, 04/03/22 22:06:00 EDT, Dry Weight Start Date: 09/29/21 Status: Ordered FeroSul 325 mg oral tablet 1 tablet, By Mouth, Daily, # 100 tablet, 1 Refills, Maintenance, 07/23/20 12:40:00 EDT, [facility] #[id number], 174, cm, 06/10/20 10:35:00 EDT, Height, 90.2, [...] Gm, 0 Refills, Maintenance, 03/10/22 15:48:00 EST, [place], [facility] #[id number], Partial fill upon patient request if the [...] tablet, 1 Refills, Maintenance, 10/11/21 10:22:00 EDT, [facility] #[id number], dose increased from 5 mg, 173, cm, 10/11/21 10:04:00 EDT, Height, 91.6, kg, 06/05/21 22:06:00 EDT, Dry Weight Start Date: 10/11/21 Stop Date: 04/09/22 Status: Ordered lidocaine 5% topical film 1 patch, Topically, Daily, PRN Pain , Mild, remove after 12 hours, # 13 each, 0 Refills, Maintenance, 06/05/21 21:29:00 EDT, [place], [facility] #[id number], Partial fill upon patient request if the prescription is for a schedule II opioid drug., 1... Start Date: 06/05/21 Status: Ordered losartan 100 mg oral tablet 1 tablet, By Mouth, Daily, # 90 tablet, 1 Refills, Maintenance, 08/08/22 20:35:00 EDT, [facility] #[id number], 173, cm, 07/26/22 9:01:00 EDT, Height, 91.6, kg, 06/05/21 22:06:00 EDT, Dry Weight Start Date: 08/08/22 Status: Ordered Metoprolol Succinate ER 50 mg oral tablet, extended release 1 tablet = 50 mg, By Mouth, Daily, # 90 tablet, 1 Refills, Maintenance, 10/11/21 10:22:00 EDT, ER Tablet, [facility] #[id number], 173, cm, 10/11/21 10:04:00 EDT, Height, 91.6, [...] Personnel Name: Jordan STOCKTON, Roseline Frey Position: S Physician - Primary Care Member Role: PCP Address: Address: [address] [place] [address] Adult [place] [address]- Care Team Related Persons Name: DELIA STOLL Address: [place] [address] Name: LYNNE STOLL Address: [address] [address]
--- OUTSIDE RECORDS SUMMARY | 2023-04-04 06:05 | XMS_ITS | Continuity of Care Document ---
Author Name Unknown Organization [facility] Address [address] [place] [address]- Care Team Providers Care Lace Inspector Name Role Phone Roseline Ortega MD Primary Care Physician Encounter [facility] Date(s): 02/16/22 - 05/06/22 [facility] [address], [place] [address] Attending Physician: Roseline Ortega MD Allergies, Adverse Reactions, Alerts Substance Reaction Severity Status metFORMIN myalgia Active Immunizations Given and Recorded Vaccine Date Status Refusal Reason [id number] 12y+ bivalent booster vax 02/16/22 Recorded SARS-CoV-2 [...] pt. tolerated inj. without complications....CO 2Result Comment: [facility] 93606-483-96 Pt tolerated vaccine without incident...NH 3Result Comment: [id number] 4Result Comment: [12/20/2017] [facility] 14141-633-38 5Result Comment: [12/18/2012] given w/o incidense...mh 6Admin Note: at work 7Result Comment: [facility] [address]-2 Pt tolerated vaccine without incident...NH 8Admin Note: GIVEN W/O INCEDENT Medications albuterol CFC free 90 mcg/inh inhalation aerosol 2, puffs, Inhalation, Every 6 hours, PRN, # 8.5 Gm, Refills 0, Tot. Refills 0, Maintenance, 03/10/22 15:49:00 EST, Route to Pharmacy Electronically, [id number], [facility] #[id number], 173, cm, 03/10/22 15:20:00 EST, Hei... Start Date: 03/10/22 Stop Date: 04/09/22 Status: Ordered aspirin 81 mg oral tablet 1 tablet = 81 mg, By Mouth, Daily, # 30 tablet, 0 Refills, Maintenance, 05/20/14 12:11:28, Tablet Start Date: 05/20/14 Status: Ordered atorvastatin 20 mg oral tablet 1 tablet, By Mouth, Daily, # 90 tablet, 1 Refills, 10/11/21 10:22:00 EDT, [facility] #[id number], 173, cm, 10/11/21 10:04:00 EDT, Height, 91.6, kg, 06/05/21 22:06:00 EDT, Dry Weight Start Date: 10/11/21 Status: Ordered chlorthalidone 50 mg oral tablet 2 tablet, By Mouth, Daily, # 180 tablet, 0 Refills, [facility] #[id number], 173, cm, 06/21/21 13:45:00 EDT, Height, 91.6, kg, 06/05/21 22:06:00 EDT, Dry Weight Start Date: 09/29/21 Status: Ordered FeroSul 325 mg oral tablet 1 tablet, By Mouth, Daily, # 100 tablet, 1 Refills, Maintenance, 07/23/20 12:40:00 EDT, [facility] #[id number], 174, cm, 06/10/20 10:35:00 EDT, Height, 90.2, [...] Gm, 0 Refills, Maintenance, 03/10/22 15:48:00 EST, [place], [facility] #[id number], Partial fill upon patient request if the [...] tablet, 1 Refills, Maintenance, 10/11/21 10:22:00 EDT, [facility] #[id number], dose increased from 5 mg, 173, cm, 10/11/21 10:04:00 EDT, Height, 91.6, kg, 06/05/21 22:06:00 EDT, Dry Weight Start Date: 10/11/21 Stop Date: 04/09/22 Status: Ordered lidocaine 5% topical film 1 patch, Topically, Daily, PRN Pain , Mild, remove after 12 hours, # 13 each, 0 Refills, Maintenance, 06/05/21 21:29:00 EDT, [place], [facility] #[id number], Partial fill upon patient request if the prescription is for a schedule II opioid drug., 1... Start Date: 06/05/21 Status: Ordered losartan 100 mg oral tablet 1 tablet, By Mouth, Daily, # 90 tablet, 1 Refills, Maintenance, 02/07/22 7:41:00 EST, [facility] #[id number], 173, cm, 10/25/21 15:43:00 EDT, Height, 91.6, kg, 06/05/21 22:06:00 EDT, Dry Weight Start Date: 02/07/22 Status: Ordered Metoprolol Succinate ER 50 mg oral tablet, extended release 1 tablet = 50 mg, By Mouth, Daily, # 90 tablet, 1 Refills, Maintenance, 10/11/21 10:22:00 EDT, ER Tablet, [facility] #[id number], 173, cm, 10/11/21 10:04:00 EDT, Height, 91.6, [...] Personnel Name: Jordan STOCKTON, Roseline Frey Position: [facility] Primary Care Physician Member Role: PCP Address: Address: [address] [place] [address] Adult [place] [address]- Care Team Related Persons Name: DELIA STOLL Address: [place] [address] Name: LYNNE STOLL Address: home [address] [place] [id number]
--- OUTSIDE RECORDS SUMMARY | 2023-04-04 06:05 | XMS_ITS | Continuity of Care Document ---
Author Name Unknown Organization [facility] Address [address] [place] [address]- Care Team Providers Care Fruit Thinner Name Role Phone Jordan STOCKTON, Roseline Frey Primary Care Physician Encounter [facility] Date(s): 08/15/22 - 09/14/22 [facility] [address] [place], [place] [address] Allergies, Adverse Reactions, Alerts Substance Reaction Severity Status metFORMIN myalgia Active Immunizations Given and Recorded Vaccine Date Status Refusal Reason [id number] 12y+ bivalent booster vax 02/16/22 Recorded SARS-CoV-2 [...] pt. tolerated inj. without complications....CO 2Result Comment: [facility] 49245-452-75 Pt tolerated vaccine without incident...NH 3Result Comment: [id number] 4Result Comment: [12/20/2017] [facility] 28637-240-96 5Result Comment: [12/18/2012] given w/o incidense...mh 6Admin Note: at work 7Result Comment: [facility] [address]-8 Pt tolerated vaccine without incident...NH 8Admin Note: GIVEN W/O INCEDENT Medications albuterol CFC free 90 mcg/inh inhalation aerosol 2, puffs, Inhalation, Every 6 hours, PRN, # 8.5 Gm, Refills 0, Tot. Refills 0, Maintenance, 03/10/22 15:49:00 EST, Route to Pharmacy Electronically, [id number], [facility] #[id number], 173, cm, 03/10/22 15:20:00 EST, Hei... Start Date: 03/10/22 Stop Date: 04/09/22 Status: Ordered aspirin 81 mg oral tablet 1 tablet = 81 mg, By Mouth, Daily, # 30 tablet, 0 Refills, Maintenance, 05/20/14 12:11:28, Tablet Start Date: 05/20/14 Status: Ordered atorvastatin 20 mg oral tablet 1 tablet, By Mouth, Daily, # 90 tablet, 1 Refills, 10/11/21 10:22:00 EDT, [facility] #[id number], 173, cm, 10/11/21 10:04:00 EDT, Height, 91.6, kg, 06/05/21 22:06:00 EDT, Dry Weight Start Date: 10/11/21 Status: Ordered chlorthalidone 50 mg oral tablet 2 tablet, By Mouth, Daily, # 180 tablet, 0 Refills, [facility] #[id number], 173, cm, 06/21/21 13:45:00 EDT, Height, 91.6, kg, 06/05/21 22:06:00 EDT, Dry Weight Start Date: 09/29/21 Status: Ordered FeroSul 325 mg oral tablet 1 tablet, By Mouth, Daily, # 100 tablet, 1 Refills, Maintenance, 07/23/20 12:40:00 EDT, [facility] #[id number], 174, cm, 06/10/20 10:35:00 EDT, Height, 90.2, [...] Gm, 0 Refills, Maintenance, 03/10/22 15:48:00 EST, [place], [facility] #[id number], Partial fill upon patient request if the [...] tablet, 1 Refills, Maintenance, 10/11/21 10:22:00 EDT, [facility] #[id number], dose increased from 5 mg, 173, cm, 10/11/21 10:04:00 EDT, Height, 91.6, kg, 06/05/21 22:06:00 EDT, Dry Weight Start Date: 10/11/21 Stop Date: 04/09/22 Status: Ordered lidocaine 5% topical film 1 patch, Topically, Daily, PRN Pain , Mild, remove after 12 hours, # 13 each, 0 Refills, Maintenance, 06/05/21 21:29:00 EDT, Film, [facility] #[id number], Partial fill upon patient request if the prescription is for a schedule II opioid drug., 1... Start Date: 06/05/21 Status: Ordered losartan 100 mg oral tablet 1 tablet, By Mouth, Daily, # 90 tablet, 1 Refills, Maintenance, 08/08/22 20:35:00 EDT, [facility] #[id number], 173, cm, 07/26/22 9:01:00 EDT, Height, 91.6, kg, 06/05/21 22:06:00 EDT, Dry Weight Start Date: 08/08/22 Status: Ordered Metoprolol Succinate ER 50 mg oral tablet, extended release 1 tablet = 50 mg, By Mouth, Daily, # 90 tablet, 1 Refills, Maintenance, 10/11/21 10:22:00 EDT, ER Tablet, [facility] #[id number], 173, cm, 10/11/21 10:04:00 EDT, Height, 91.6, [...] Personnel Name: Jordan STOCKTON, Roseline Frey Position: [facility] Physician - Primary Care Member Role: PCP Address: Address: [address] [place] [address] Adult [place] [address]- Care Team Related Persons Name: DELIA STOLL Address: [place] [address] Name: LYNNE STOLL Address: home [address] [place] [id number]
--- OUTSIDE RECORDS SUMMARY | 2023-04-04 06:06 | XMS_ITS | Continuity of Care Document ---
Author Name Unknown Organization [facility] Address [address] [place] [address]- Care Team Providers Care Policy Manager Name Role Phone Jordan STOCKTON, Roseline Frey Primary Care Physician Encounter [facility] Date(s): 12/16/20 - 12/23/20 [facility] [address] [place], [place] [address] Attending Physician: Roseline Ortega MD Allergies, Adverse Reactions, Alerts Substance Reaction Severity Status metFORMIN myalgia Active Immunizations Given and Recorded Vaccine Date Status Refusal Reason influenza virus vaccine, inactivated 1 12/16/20 Gi [...] influenza virus vaccine, inactivated 12/13/10 Give n SARS-CoV-2 (COVID-19) mRNA BNT-162b2 vac 07/11/20 Recorded SARS-CoV-2 (COVID-19) mRNA BNT-162b2 vac 06/20/20 Recorded tetanus-diphtheria toxoids (Td) 7 06/03/20 Given pneumococcal 13-valent vaccine 12/17/15 Given Pneumococcal Vaccine (oldterm) 07/26/10 Given Tetanus-Diphth Toxoids, Adult (oldterm) 8 07/26/10 Given 1Result Comment: pt. tolerated inj. without complications....CO 2Result Comment: [facility] 89239-511-42 Pt tolerated vaccine without incident...NH 3Result Comment: [id number] 4Result Comment: [12/20/2017] [facility] 28397-864-13 5Result Comment: [12/18/2012] given w/o incidense...mh 6Admin Note: at work 7Result Comment: [facility] [address]-4 Pt tolerated vaccine without incident...NH 8Admin Note: GIVEN W/O INCEDENT Medications aspirin 81 mg oral tablet 1 tablet = 81 mg, By Mouth, Daily, # 30 tablet, 0 Refills, Maintenance, 05/20/14 12:11:28, Tablet Start Date: 05/20/14 Status: Ordered atorvastatin 20 mg oral tablet 1 tablet = 20 mg, By Mouth, Daily, # 90 tablet, 1 Refills, Maintenance, 12/16/20 14:26:00 EDT, Tablet, [facility] #[id number], simvastatin discontinued, lipids not at goal, 174, cm, 12/16/20 14:06:00 EDT, Height, 90.2, kg, 04/10/19 10:04:00 EST,... Start Date: 12/16/20 Stop Date: 06/14/21 Status: Ordered chlorthalidone 50 mg oral tablet 2 tablet = 100 mg, By Mouth, Daily, # 180 tablet, 1 Refills, Maintenance, 12/16/20 14:26:00 EDT, Tablet, [facility] #[id number], dose increased from 50 mg daily, 174, cm, 12/16/20 14:06:00 EDT, Height, 90.2, kg, 04/10/19 10:04:00 EST, Dry Weight Start Date: 12/16/20 Stop Date: 06/14/21 Status: Ordered FeroSul 325 mg oral tablet 1 tablet, By Mouth, Daily, # 100 tablet, 1 Refills, Maintenance, 07/23/20 12:40:00 EDT, [facility] #[id number], 174, cm, 06/10/20 10:35:00 EDT, Height, 90.2, [...] tablet, 1 Refills, Maintenance, 12/16/20 14:26:00 EDT, [facility] #[id number], dose increased from 5 mg, 174, cm, 12/16/20 14:06:00 EDT, Height, 90.2, kg, 04/10/19 10:04:00 EST, Dry Weight Start Date: 12/16/20 Stop Date: 06/14/21 Status: Ordered losartan 100 mg oral tablet 1 tablet = 100 mg, By Mouth, Daily, # 90 tablet, 1 Refills, Maintenance, 12/16/20 14:26:00 EDT, Tablet, [facility] #[id number], change from losartan-hctz, 174, cm, 12/16/20 14:06:00 EDT, Height,90.2, kg, 04/10/19 10:04:00 EST, Dry Weight Start Date: 12/16/20 Status: Ordered Metoprolol Succinate ER 50 mg oral tablet, extended release 1 tablet = 50 mg, By Mouth, Daily, # 90 tablet, 1 Refills, Maintenance, 12/16/20 14:26:00 EDT, ER Tablet, [facility] #[id number], 174, cm, 12/16/20 14:06:00 EDT, Height, 90.2, [...] [Reference Range]: 1 2 Height 174 cm (12/16/20 2:06 PM) 174 cm (12/16/20 2:04 PM) Weight 84.5 kg (12/16/20 2:04 PM) Oxygen Saturation [94-100 %] 97 % (12/16/20 2:04 PM) Pulse Rate [55-90 bpm] 54 bpm *L* (12/16/20 2:04 PM) Body Mass Index [18.5-24.99] 27.91 *H* (12/16/20 2:04 PM) Blood Pressure [90-138/55-84 mm Hg] 162/ 70mm Hg *H* (12/16/20 2:06 PM) 162/72mm Hg *H* (12/16/20 2:04 PM) Respiratory Rate [16-30 br/min] 16 br/mi n (12/16/20 2:04 PM) Temperature [96.8-100.4 DegF] 98.0 DegF (12/16/20 2:04 PM) Blood pressure sites Arm, left (12/16/20 2:06 PM) Arm, left (12/16/20 2:04 PM) Temperature Route Temporal (12/16/20 2:04 PM) Weight Obtained Via Standing scale (12/16/20 2:04 PM) Social History Social History Type Response Smoking Status Never smoker; Tobacc o user in household: No entered on: 07/16/13 Sex
--- OUTSIDE RECORDS SUMMARY | 2023-04-04 06:06 | XMS_ITS | Continuity of Care Document ---
Author Name Unknown Organization [facility] Address [address] [place] [address]- Care Team Providers Care Assurance Sourcing Manager Name Role Phone Jordan STOCKTON, Roseline Frey Primary Care Physician Encounter [facility] Date(s): 11/04/20 - 12/04/20 [facility] [address] [place], [place] [address] Allergies, Adverse Reactions, Alerts Substance Reaction [...] Adult (oldterm) 7 07/26/10 Given 1Result Comment: [facility] [address]-2 Pt tolerated vaccine without incident...NH 2Result Comment: [facility] 80229-876-20 Pt tolerated vaccine without incident...NH 3Result Comment: [id number] 4Result Comment: [12/20/2017] [facility] [id number] 5Result Comment: [12/18/2012] given w/o incidense...mh 6Admin [...] 1 Refills, Maintenance, 09/10/20 15:34:00 EDT, Tablet, [facility] #[id number], simvastatin discontinued, lipids not at goal, 174, cm, 06/10/20 10:35:00 EDT, Height, 90.2, kg, 04/10/19 10:04:00 EST,... Start Date: 09/10/20 Stop Date: 03/09/21 Status: Ordered chlorthalidone 50 mg oral tablet 2 tablet = 100 mg, By Mouth, Daily, # 180 tablet, 3 Refills, Maintenance, 02/25/20 12:03:00 EST, Tablet, [facility] #58742, dose increased from 50 mg daily, 174, cm, 02/25/20 11:26:00 EST, Height, 90.2, kg, 04/10/19 10:04:00 EST, Dry Weight Start Date: 02/25/20 Stop Date: 02/19/21 Status: Ordered FeroSul 325 mg oral tablet 1 tablet, By Mouth, Daily, # 100 tablet, 1 Refills, Maintenance, 07/23/20 12:40:00 EDT, [facility] #[id number], 174, cm, 06/10/20 10:35:00 EDT, Height, 90.2, [...] tablet, 1 Refills, Maintenance, 07/23/20 12:39:00 EDT, [facility] #[id number], dose increased from 5 mg, 174, cm, 06/10/20 10:35:00 EDT, Height, 90.2, kg, 04/10/19 10:04:00 EST, Dry Weight Start Date: 07/23/20 Stop Date: 01/19/21 Status: Ordered losartan 100 mg oral tablet 1 tablet = 100 mg, By Mouth, Daily, # 90 tablet, 1 Refills, Maintenance, 11/17/20 14:27:00 EDT, Tablet, [facility] #65609, change from losartan-hctz, 174, cm, 11/17/20 13:45:00 EDT, Height,90.2, kg, 04/10/19 10:04:00 EST, Dry Weight Start Date: 11/17/20 Status: Ordered Metoprolol Succinate ER 50 mg oral tablet, extended release 1 tablet = 50 mg, By Mouth, Daily, # 90 tablet, 1 Refills, Maintenance, 07/23/20 12:39:00 EDT, ER Tablet, [facility] #[id number], 174, cm, 06/10/20 10:35:00 EDT, Height, 90.2, [...]
--- OUTSIDE RECORDS SUMMARY | 2023-04-04 06:06 | XMS_ITS | Continuity of Care Document ---
Author Name Unknown Organization [facility] Address [address] [place] [address]- Care Team Providers Care Tariff Compiling Clerk Name Role Phone Jordan STOCKTON, Roseline Frey Primary Care Physician Encounter [facility] Date(s): 06/05/20 - 07/05/20 [facility] [address] [place], [place] [address] Allergies, Adverse Reactions, Alerts Substance Reaction Severity Status metFORMIN myalgia Active Immunizations Given and Recorded Vaccine Date Status Refusal Reason tetanus-diphtheria toxoids (Td) 1 06/03/20 Given influenza [...] Adult (oldterm) 7 07/26/10 Given 1Result Comment: [facility] [address]-4 Pt tolerated vaccine without incident...NH 2Result Comment: [facility] 85268-784-31 Pt tolerated vaccine without incident...NH 3Result Comment: [id number] 4Result Comment: [12/20/2017] [facility] 93408-442-13 5Result Comment: [12/18/2012] given w/o incidense...mh 6Admin Note: at work 7Admin Note: GIVEN W/O INCEDENT Medications aspirin 81 mg oral tablet 1 tablet = 81 mg, By Mouth, Daily, # 30 tablet, 0 Refills, Maintenance, 05/20/14 12:11:28, Tablet Start Date: 05/20/14 Status: Ordered atorvastatin 20 mg oral tablet 1 tablet = 20 mg, By Mouth, Daily, # 90 tablet, 0 Refills, Maintenance, 06/10/20 10:45:00 EDT, Tablet, [facility] #[id number], simvastatin discontinued, lipids not at goal, 174, cm, 06/10/20 10:35:00 EDT, Height, 90.2, kg, 04/10/19 10:04:00 EST,... Start Date: 06/10/20 Stop Date: 09/08/20 Status: Ordered chlorthalidone 50 mg oral tablet 2 tablet = 100 mg, By Mouth, Daily, # 180 tablet, 3 Refills, Maintenance, 02/25/20 12:03:00 EST, Tablet, [facility] #93236, dose increased from 50 mg daily, 174, cm, 02/25/20 11:26:00 EST, Height, 90.2, kg, 04/10/19 10:04:00 EST, Dry Weight Start Date: 02/25/20 Stop Date: 02/19/21 Status: Ordered FeroSul 325 mg oral tablet 1 tablet, By Mouth, Daily, # 100 tablet, 0 Refills, Maintenance, 11/12/19 14:03:00 EDT, [facility] #[id number], 174, cm, 10/24/19 20:33:00 EDT, Height, 90.2, kg, 04/10/19 10:04:00 EST, Dry Weight Start Date: 11/12/19 Status: Ordered Fish Oil 1000 mg oral [...] 2 times a day, # 180 tablet, 3 Refills, Maintenance, 04/10/19 10:26:00 EST, [facility] #80331, dose increased from 5 mg, 172, cm, 04/10/19 10:04:00 EST, Height, 90.2, kg, 04/10/19 10:04:00 EST, Dry Weight Start Date: 04/10/19 Stop Date: 04/04/20 Status: Ordered losartan 100 mg oral tablet 1 tablet = 100 mg, By Mouth, Daily, # 90 tablet, 0 Refills, Maintenance, 02/16/20 7:38:00 EST, Tablet, [facility] #58671, change from losartan- hctz, 174, cm, 01/21/20 10:35:00 EST, Height, 90.2, kg, 04/10/19 10:04:00 EST, Dry Weight Start Date: 02/16/20 Status: Ordered Metoprolol Succinate ER 50 mg oral tablet, extended release 1 tablet = 50 mg, By Mouth, Daily, # 90 tablet, 0 Refills, Maintenance, 02/16/20 7:38:00 EST, ER Tablet, [facility] #[id number], 174, cm, 01/21/20 10:35:00 EST, Height, 90.2, kg, 04/10/19 10:04:00 EST, Dry Weight Start Date: 02/16/20 Stop Date: 05/16/20 Status: Ordered Vitamin B12 1000 mcg oral [...]
--- OUTSIDE RECORDS SUMMARY | 2023-04-04 06:06 | XMS_ITS | Continuity of Care Document ---
Author Name Unknown Organization [facility] Address [address] [place] [address]- Care Team Providers Care Pedodontist Name Role Phone Jordan STOCKTON, Roseline Frey Primary Care Physician [facility]counter [facility] Date(s): 12/13/19 - 01/12/20 [facility] [address] [place], [place] [address] Allergies, Adverse Reactions, Alerts Substance Reaction Severity Status metFORMIN myalgia Active Immunizations Given and Recorded Vaccine Date Status Refusal Reason influenza virus vaccine, inactivated 1 12/12/19 Gi leandra influenza virus vaccine, inactivated 2 02/06/19 Gi leandra influenza virus vaccine, inactivated 3 12/20/17 Gi leandra influenza virus vaccine, inactivated 12/17/15 Give n influenza virus vaccine, inactivated 01/01/14 Give n influenza virus vaccine, inactivated 4 12/18/12 Gi leandra influenza virus vaccine, inactivated 5 02/09/12 Gi leandra influenza virus vaccine, inactivated 12/13/10 Give n pneumococcal 13-valent vaccine 12/17/15 Given Pneumococcal Vaccine (oldterm) 07/26/10 Given Tetanus-Diphth Toxoids, Adult (oldterm) 6 07/26/10 Given 1Result Comment: [facility] 63995-965-79 Pt tolerated vaccine without incident...NH 2Result Comment: [id number] 3Result Comment: [12/20/2017] [facility] 94802-704-62 4Result Comment: [12/18/2012] given w/o incidense...mh 5Admin Note: at work 6Admin Note: GIVEN W/O INCEDENT Medications aspirin 81 mg oral tablet 1 tablet = 81 mg, By Mouth, Daily, # 30 tablet, 0 Refills, Maintenance, 05/20/14 12:11:28, Tablet Start Date: 05/20/14 Status: Ordered chlorthalidone 50 mg oral tablet 1 tablet = 50 mg, By Mouth, Daily, # 90 tablet, 3 Refills, Maintenance, 10/31/18 9:35:44 EDT, Tablet Start Date: 10/31/18 Stop Date: 10/26/19 Status: Ordered FeroSul 325 mg oral tablet 1 tablet, By Mouth, Daily, # 100 tablet, 0 Refills, Maintenance, 11/12/19 14:03:00 EDT, [facility] #[id number], 174, cm, 10/24/19 20:33:00 EDT, Height, 90.2, kg, 04/10/19 10:04:00 EST, Dry Weight Start Date: 11/12/19 Status: Ordered Fish Oil 1000 mg oral capsule 1 capsule = 1,000 mg, By Mouth, 2 times a day, 0 Refills, Maintenance, 08/01/18 10:25:46 EDT Start Date: 08/01/18 Status: Ordered Freestyle Lite Lancets See Instructions, # 180 each, Refills 3, Tot. Refills 3, Maintenance, 250.02 check bid-ac, 01/09/1714:08:59 Start Date: 01/09/17 Status: Ordered Freestyle Lite Monitor See Instructions, # 1 each, Maintenance, 250.02 check bid-ac, 05/12/11 12:35:51 Start Date: 05/12/11 Status: Ordered Freestyle Lite Test Strips See Instructions, # 180 each, Refills 3, Tot. Refills 3, Maintenance, 250.02 check bid-ac, 01/09/1714:08:58 Start Date: 01/09/17 Status: Ordered glipiZIDE 10 mg oral tablet 1 tablet = 10 mg, By Mouth, 2 times a day, # 180 tablet, 3 Refills, Maintenance, 04/10/19 10:26:00 EST, [facility] #[id number], dose increased from 5 mg, 172, cm, 04/10/19 10:04:00 EST, Height, 90.2, kg, 04/10/19 10:04:00 EST, Dry Weight Start Date: 04/10/19 Stop Date: 04/04/20 Status: Ordered losartan 100 mg oral tablet 1 tablet = 100 mg, By Mouth, Daily, # 90 tablet, 0 Refills, Maintenance, 11/12/19 11:16:00 EDT, Tablet, [facility] #09011, change from losartan-hctz, 174, cm, 10/24/19 20:33:00 EDT, Height,90.2, kg, 04/10/19 10:04:00 EST, Dry Weight Start Date: 11/12/19 Status: Ordered Metoprolol Succinate ER 50 mg oral tablet, extended release 1 tablet = 50 mg, By Mouth, Daily, # 90 tablet, 0 Refills, Maintenance, 11/12/19 11:16:00 EDT, ER Tablet, [facility] #[id number], 174, cm, 10/24/19 20:33:00 EDT, Height, 90.2, kg, 04/10/19 10:04:00 EST, Dry Weight Start Date: 11/12/19 Stop Date: 02/10/20 Status: Ordered NIFEdipine 60 mg oral tablet, extended release 60 mg, 1, tablet, By Mouth, Daily, # 90 tablet, Refills 0, Tot. Refills 0, Maintenance, 06/12/19 10:13:00 EDT, Route to Pharmacy Electronically, [facility] #[id number], 172, cm, 04/10/19 10:04:00 EST, Height, 90.2, kg, 04/10/19 10:04:00 EST, Dry... Start Date: 06/12/19 Stop Date: 09/10/19 Status: Ordered simvastatin 40 mg oral tablet 40 mg, 1, tablet, By Mouth, Daily at bedtime, # 90 tablet, Refills 0, Tot. Refills 0, Maintenance, 11/12/19 11:16:00 EDT, Route to Pharmacy Electronically, [facility] #[id number], 174, cm, 10/24/19 20:33:00 EDT, Height, 90.2, kg, 04/10/19 10:04:0... Start Date: 11/12/19 Status: Ordered Vitamin B12 1000 mcg oral [...]
--- OUTSIDE RECORDS SUMMARY | 2023-04-04 06:06 | XMS_ITS | Continuity of Care Document ---
Author Name Unknown Organization [facility] Address [address] [place] [address]- Care Team Providers Care Legal Job Titles Name Role Phone Jordan STOCKTON, Roseline Frey Primary Care Physician [facility] Date[facility]s): 10/25/21 - 11/01/21 [facility] [address] [place], [place] [address] Attending Physician: Not on Staff, Attending MD Referring Physician: Roseline Ortega MD Allergies, Adverse Reactions, [...] pt. tolerated inj. without complications....CO 2Result Comment: [facility] 11476-216-72 Pt tolerated vaccine without incident...NH 3Result Comment: [id number] 4Result Comment: [12/20/2017] [facility] [id number] 5Result Comment: [12/18/2012] given w/o incidense...mh 6Admin Note: at work 7Result Comment: [facility] [id number] Pt tolerated vaccine without incident...NH 8Admin Note: GIVEN W/O INCEDENT Medications aspirin 81 mg oral tablet 1 tablet = 81 mg, By Mouth, Daily, # 30 tablet, 0 Refills, Maintenance, 05/20/14 12:11:28, Tablet Start Date: 05/20/14 Status: Ordered atorvastatin 20 mg oral tablet 1 tablet, By Mouth, Daily, # 90 tablet, 1 Refills, 10/11/21 10:22:00 EDT, [facility] #[id number], 173, cm, 10/11/21 10:04:00 EDT, Height, 91.6, kg, 06/05/21 22:06:00 EDT, Dry Weight Start Date: 10/11/21 Status: Ordered chlorthalidone 50 mg oral tablet 2 tablet, By Mouth, Daily, # 180 tablet, 0 Refills, [facility] #56147, 173, cm, 06/21/21 13:45:00 EDT, Height, 91.6, kg, 06/05/21 22:06:00 EDT, Dry Weight Start Date: 09/29/21 Status: Ordered FeroSul 325 mg oral tablet 1 tablet, By Mouth, Daily, # 100 tablet, 1 Refills, Maintenance, 07/23/20 12:40:00 EDT, [facility] #[id number], 174, cm, 06/10/20 10:35:00 EDT, Height, 90.2, [...] tablet, 1 Refills, Maintenance, 10/11/21 10:22:00 EDT, [facility] #[id number], dose increased from 5 mg, 173, cm, 10/11/21 10:04:00 EDT, Height, 91.6, kg, 06/05/21 22:06:00 EDT, Dry Weight Start Date: 10/11/21 Stop Date: 04/09/22 Status: Ordered lidocaine 5% topical film 1 patch, Topically, Daily, PRN Pain , Mild, remove after 12 hours, # 13 each, 0 Refills, Maintenance, 06/05/21 21:29:00 EDT, [place], [facility] #[id number], Partial fill upon patient request if the prescription is for a schedule II opioid drug., 1... Start Date: 06/05/21 Status: Ordered losartan 100 mg oral tablet 1 tablet = 100 mg, By Mouth, Daily, # 90 tablet, 1 Refills, Maintenance, 10/11/21 10:22:00 EDT, Tablet, [facility] #21066, change from losartan-hctz, 173, cm, 10/11/21 10:04:00 EDT, Height,91.6, kg, 06/05/21 22:06:00 EDT, Dry Weight Start Date: 10/11/21 Status: Ordered Metoprolol Succinate ER 50 mg oral tablet, extended release 1 tablet = 50 mg, By Mouth, Daily, # 90 tablet, 1 Refills, Maintenance, 10/11/21 10:22:00 EDT, ER Tablet, [facility] #[id number], 173, cm, 10/11/21 10:04:00 EDT, Height, 91.6, [...] recent to oldest [Reference Range]: 1 2 3 Height 173 cm (10/25/21 3:43 PM) 173 cm (10/25/21 3:37 PM) 173 cm (10/25/21 3:36 PM) Blood Pressure [90-138/55-84 mm Hg] 142/84mm Hg *H* (10/25/21 3:43 PM) 140/80mm Hg *H* (10/25/21 3:37 PM) 144/88mm Hg *H* (10/25/21 3:36 PM) Blood pressure sites Arm, left (10/25/21 3:37 PM) Arm, left (10/25/21 3:36 PM) Social History Social History Type Response Smoking Status Never smoker; Tobacc o user in household: No entered on: 07/16/13 Sex Care Team Personnel Name: Jordan STOCKTON, Roseline Frey Address: [address] [place] [address] Adult & Pediatric [place], [place] [address]
--- OUTSIDE RECORDS SUMMARY | 2023-04-04 06:06 | XMS_ITS | Continuity of Care Document ---
Author Name Unknown Organization [facility] Address [address] [place] [address]- Care Team Providers Care Senior Estimator Name Role Phone Roseline Ortega MD Primary Care Physician Encounter [facility] R [id number] Date(s): 01/29/23 - 02/05/23 [facility] [address] [place] [place] [address] Encounter Diagnosis Infiltrating ductal carcinoma of breast(Discharge Diagnosis) - 01/30/23 Diabetes mellitus type II(Discharge Diagnosis) - 01/30/23 Hyperlipidemia(Discharge Diagnosis) - 01/30/23 Hypertension(Discharge Diagnosis) - 01/30/23 Attending Physician: Roseline Ortega MD Allergies, Adverse Reactions, Alerts Substance Reaction Severity Status metFORMIN myalgia Active Immunizations Given and Recorded Vaccine Date Status Refusal Reason [id number] 12y+ bivalent booster vax 02/16/22 Recorded SARS-CoV-2 [...] inj. without complications....CO 2Result Comment: [facility] 03223-284-89 Pt tolerated vaccine without incident...NH 3Result Comment: [id number] 4Result Comment: [12/20/2017] [facility] 60240-499-45 5Result Comment: [12/18/2012] given w/o incidense...mh 6Admin Note: at work 7Result Comment: [facility] [address]-1 Pt tolerated vaccine without incident...NH 8Admin Note: [...] 12/06/22 15:50:00 EDT, Route to Pharmacy Electronically, [id number], [facility] #[id number], 749, cm, 08/16/22 8:14:00 EDT, [place]... Start Date: [...] tablet, By Mouth, Daily, # 90 tablet, 3 Refills, 01/29/23 12:51:00 EST, [facility] #[id number], 173, cm, 01/29/23 11:56:00 EST, Height, 86, kg, 08/14/22 3:21:00 EDT, Dry Weight Start Date: 01/29/23 Status: Ordered bedside commode bedside commode, See Instructions, # 1 each, Refills 0, Tot. 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 Start Date: 03/10/22 Stop Date: 04/09/22 Status: Ordered Freestyle Lite Lancets See Instructions, # 100 each, Refills 3, Tot. Refills 3, Maintenance, check once daily dx-E11.9, 01/29/23 12:46:00 EST, 173, cm, 01/29/23 11:56:00 EST, Height, 86, kg, 08/14/22 3:21:00 EDT, Dry Weight Start Date: 01/29/23 Status: Ordered Freestyle Lite Lancets See Instructions, # 600 each, Refills 2, Tot. Refills 2, Maintenance, use as directed for Type 2 Diabetes Mellitus, 01/31/23 10:55:00 EST, Supply, 173, cm, 01/29/23 11:56:00 EST, Height, 86, kg, 08/14/22 3:21:00 EDT, Dry Weight Start Date: 01/31/23 Stop Date: 10/28/23 Status: Ordered Freestyle Lite Monitor See Instructions, # 1 each, Maintenance, check once daily dx-E11.9, 03/22/21 12:37:00 EST, 174, cm,12/16/20 14:06:00 EDT, Height, 90.2, kg, 04/10/19 10:04:00 EST, Dry Weight Start Date: 03/22/21 Status: Ordered Freestyle Lite Test Strips See Instructions, # 100 each, Refills 3, Tot. Refills 3, Maintenance, check once daily dx-E11.9, 01/29/23 12:46:00 EST, 173, cm, 01/29/23 11:56:00 EST, Height, 86, kg, 08/14/22 3:21:00 EDT, Dry Weight Start Date: 01/29/23 Status: Ordered Freestyle Lite Test Strips See Instructions, # 600 each, Refills 3, Tot. Refills 3, Maintenance, Test once a day or as directed by Iftikhar Type 2 Diabetes Mellitus E11.9, 01/31/23 10:55:00 EST, Supply, 173, cm, 01/29/23 11:56:00 EST, Height, 86, kg, 08/14/22 3:21:00 EDT, Dry... Start Date: 01/31/23 Stop Date: 01/26/24 Status: Ordered gabapentin 300 mg oral capsule [...] tablet, 1 Refills, Maintenance, 09/26/22 11:55:00 EDT, [facility] #[id number], dose increased from 5 mg, 173, cm, 08/16/22 8:14:00 EDT, Height, 86, kg, 08/14/22 3:21:00 EDT, Dry Weight Start Date: 09/26/22 Stop Date: 03/25/23 Status: Ordered Guaiasorb DM 20 mg-200 mg/10 mL oral liquid 10 mL, By Mouth, Every 8 hours, PRN Cough, for 10 days, # 300 mL, 0 Refills, Acute 02/08/23 12:49:00 EST, 01/29/23 12:49:00 EST, [facility] #[id number], Partial fill upon patient request if the prescription is for a schedule II opioid drug., 10 m... Start Date: 01/29/23 Stop Date: 02/08/23 Status: Ordered losartan 100 mg oral tablet 1 tablet, By Mouth, Daily, # 90 tablet, 3 Refills, Maintenance, 01/29/23 12:52:00 EST, [facility] #[id number], 173, cm, 01/29/23 11:56:00 EST, Height, 86, kg, 08/14/22 3:21:00 EDT, Dry Weight Start Date: 01/29/23 Status: Ordered Metoprolol Succinate ER 50 mg oral tablet, extended release 1 tablet = 50 mg, By Mouth, Daily, # 90 tablet, 3 Refills, Maintenance, 01/29/23 12:51:00 EST, ER Tablet, [facility] #[id number], 173, cm, 01/29/23 11:56:00 EST, Height, 86, kg, 08/14/22 3:21:00EDT, Dry Weight Start Date: 01/29/23 Stop Date: 01/24/24 Status: Ordered One Touch Ultra 2 Glucose Meter See Instructions, # 1 each, Maintenance, USE ONCE A DAY AOMD 2 E11.9, 02/02/23 15:09:00 EST, Supply, 173, cm, 01/29/23 11:56:00 EST, Height, 86, kg, 08/14/22 3:21:00 EDT, Dry Weight Start Date: 02/02/23 Status: Ordered One Touch Ultra Test Strips See Instructions, # 50 each, Refills 12, Tot. Refills 12, Maintenance, USE ONCE A DAY AODM 2 E11.9,02/02/23 15:10:00 EST, Supply, 173, cm, 01/29/23 11:56:00 EST, Height, 86, kg, 08/14/22 3:21:00 EDT, Dry Weight Start Date: 02/02/23 Status: Ordered One Touch UltraSoft Lancets See Instructions, # 50 each, Refills 12, Tot. Refills 12, Maintenance, AODM 2 E11.9 USE ONCE A DAY,02/02/23 15:10:00 EST, Supply, 173, cm, 01/29/23 11:56:00 EST, Height, 86, kg, 08/14/22 3:21:00 EDT, Dry Weight Start Date: 02/02/23 Status: Ordered Pullups -large size Pullups -large [...] Active Hyperlipidemia Confirmed Active Hypertension Confirmed Active Infiltrating ductal carcinoma of breast Confirmed Active Diagnosis Diagnosis Type Effective Dates Health Status Clinical Service Informant Infiltrating ductal carcinoma of breast Discharge Diagnosis 01/30/23 Diabetes mellitus type II Discharge Diagnosis 01/30/23 Hyperlipidemia Discharge Diagnosis 01/30/23 Hypertension Discharge Diagnosis 01/30/23 Vital Signs Most recent to oldest [Reference Range]: 1 Height 173 cm (01/29/23 11:56 AM) Blood Pressure [90-138/55-84 mm Hg] 148/ 78mm Hg *H* (01/29/23 11:56 AM) Blood pressure sites Arm, left (01/29/23 11:56 AM) Social History Social History Type Response Smoking Status Never smoker; Tobacc o user in household: No entered on: 07/16/13 Sex Patient Care team information Care Team Personnel Name: Jordan STOCKTON, Roseline Frey Position: [facility] Physician - Primary Care Member Role: PCP Address: Address: [address] [place] [address] Adult & [place] [address]- Care Team Related Persons Name: DELIA ST[place]LL Address: [place] [address] Name: LYNNE STOLL Address: home [address] [place] [address]
--- OUTSIDE RECORDS SUMMARY | 2023-04-04 06:06 | XMS_ITS | Continuity of Care Document ---
Author Name Unknown Organization [facility] Address [address] [place] [address]- Care Team Providers Care Seafood Service Team Member Name Role Phone Roseline Ortega MD Primary Care Phys[id number] Date[facility]s): 09/15/19 - 10/30/19 [facility] [address] [place] [address]- [facility] Attending Physician: Roseline Ortega MD Allergies, Adverse Reactions, Alerts Substance Reaction Severity Status metFORMIN myalgia Active Immunizations Given and Recorded Vaccine Date Status Refusal Reason influenza virus vaccine, inactivated 1 02/06/19 Gi leandra influenza virus vaccine, inactivated 2 12/20/17 Gi leandra influenza virus vaccine, inactivated 12/17/15 Give n influenza virus vaccine, inactivated 01/01/14 Give n influenza virus vaccine, inactivated 3 12/18/12 Gi leandra influenza virus vaccine, inactivated 4 02/09/12 Gi leandra influenza virus vaccine, inactivated 12/13/10 Give n pneumococcal 13-valent vaccine 12/17/15 Given Pneumococcal Vaccine (oldterm) 07/26/10 Given Tetanus-Diphth Toxoids, Adult (oldterm) 5 07/26/10 Given 1Result Comment: [id number] 2Result Comment: [12/20/2017] [facility] 95535-875-84 3Result Comment: [12/18/2012] given w/o incidense...mh 4Admin Note: at work 5Admin Note: GIVEN W/O INCEDENT Medications aspirin 81 mg oral tablet 1 tablet = 81 mg, By Mouth, Daily, # 30 tablet, 0 Refills, Maintenance, 05/20/14 12:11:28, Tablet Start Date: 05/20/14 Status: Ordered chlorthalidone 50 mg oral tablet 1 tablet = 50 mg, By Mouth, Daily, # 90 tablet, 3 Refills, Maintenance, 10/31/18 9:35:44 EDT, Tablet Start Date: 10/31/18 Stop Date: 10/26/19 Status: Ordered ferrous sulfate 325 mg oral tablet 1 tablet = 325 mg, By Mouth, Daily, # 100 tablet, 0 Refills, Maintenance, 10/31/18 9:36:44 EDT Start Date: 10/31/18 Status: Ordered Fish Oil 1000 mg oral [...] tablet, 3 Refills, Maintenance, 04/10/19 10:26:00 EST, [facility] #[id number], dose increased from 5 mg, 172, cm, 04/10/19 10:04:00 EST, Height, 90.2, kg, 04/10/19 10:04:00 EST, Dry Weight Start Date: 04/10/19 Stop Date: 04/04/20 Status: Ordered losartan 100 mg oral tablet 1 tablet = 100 mg, By Mouth, Daily, # 90 tablet, 3 Refills, Maintenance, 10/31/18 9:36:01 EDT, Tablet, change from losartan-hctz Start Date: 10/31/18 Status: Ordered Metoprolol Succinate ER 50 mg oral tablet, extended release 1 tablet = 50 mg, By Mouth, Daily, # 90 tablet, 3 Refills, Maintenance, 10/31/18 9:36:07 EDT, ER Tablet Start Date: 10/31/18 Stop Date: 10/26/19 Status: Ordered NIFEdipine 60 mg oral tablet, extended release 60 mg, 1, tablet, By Mouth, Daily, # 90 tablet, Refills 0, Tot. Refills 0, Maintenance, 06/12/19 10:13:00 EDT, Route to Pharmacy Electronically, [facility] #[id number], 172, cm, 04/10/19 10:04:00 EST, Height, 90.2, kg, 04/10/19 10:04:00 EST, Dry... Start Date: 06/12/19 Stop Date: 09/10/19 Status: Ordered simvastatin 40 mg oral tablet 40 mg, 1, tablet, By Mouth, Daily at bedtime, # 90 tablet, Refills 3, Tot. Refills 3, Maintenance, 10/31/18 9:36:28 EDT, Route to Pharmacy Electronically, [id number], [facility] #[id number] Start Date: 10/31/18 Status: Ordered Vitamin B12 1000 mcg oral [...]
--- OUTSIDE RECORDS SUMMARY | 2023-04-04 06:06 | XMS_ITS | Continuity of Care Document ---
Author Name Unknown Organization [facility] Address [address] [place] [address]- Care Team Providers Care Structural Analysis Engineer Name Role Phone Jordan STOCKTON, Roseline Frey Primary Care Physician [phone] [facility]counter [facility] Date(s): 11/12/19 - 12/12/19 [facility] [address] [place] [address]- [facility] Allergies, Adverse Reactions, Alerts Substance Reaction Severity [...] Adult (oldterm) 6 07/26/10 Given 1Result Comment: [facility] 23748-231-95 Pt tolerated vaccine without incident...NH 2Result Comment: [id number] 3Result Comment: [12/20/2017] [facility] [id number] 4Result Comment: [12/18/2012] given w/o incidense...mh 5Admin [...] tablet, 0 Refills, Maintenance, 11/12/19 14:03:00 EDT, [facility] #[id number], 174, cm, 10/24/19 20:33:00 EDT, Height, 90.2, [...] tablet, 3 Refills, Maintenance, 04/10/19 10:26:00 EST, [facility] #[id number], dose increased from 5 mg, 172, cm, 04/10/19 10:04:00 EST, Height, 90.2, kg, 04/10/19 10:04:00 EST, Dry Weight Start Date: 04/10/19 Stop Date: 04/04/20 Status: Ordered losartan 100 mg oral tablet 1 tablet = 100 mg, By Mouth, Daily, # 90 tablet, 0 Refills, Maintenance, 11/12/19 11:16:00 EDT, Tablet, [facility] #[id number], change from losartan-hctz, 174, cm, 10/24/19 20:33:00 EDT, Height,90.2, kg, 04/10/19 10:04:00 EST, Dry Weight Start Date: 11/12/19 Status: Ordered Metoprolol Succinate ER 50 mg oral tablet, extended release 1 tablet = 50 mg, By Mouth, Daily, # 90 tablet, 0 Refills, Maintenance, 11/12/19 11:16:00 EDT, ER Tablet, [facility] #17457, 174, cm, 10/24/19 20:33:00 EDT, Height, 90.2, kg, 04/10/19 10:04:00 EST, Dry Weight Start Date: 11/12/19 Stop Date: 02/10/20 Status: Ordered NIFEdipine 60 mg oral tablet, extended release 60 mg, 1, tablet, By Mouth, Daily, # 90 tablet, Refills 0, Tot. Refills 0, Maintenance, 06/12/19 10:13:00 EDT, Route to Pharmacy Electronically, [facility] #[id number], 172, cm, 04/10/19 10:04:00 EST, Height, 90.2, kg, 04/10/19 10:04:00 EST, Dry... Start Date: 06/12/19 Stop Date: 09/10/19 Status: Ordered simvastatin 40 mg oral tablet 40 mg, 1, tablet, By Mouth, Daily at bedtime, # 90 tablet, Refills 0, Tot. Refills 0, Maintenance, 11/12/19 11:16:00 EDT, Route to Pharmacy Electronically, [facility] #[id number], 174, cm, 10/24/19 20:33:00 EDT, Height, 90.2, [...]
--- OUTSIDE RECORDS SUMMARY | 2023-04-04 06:06 | XMS_ITS | Continuity of Care Document ---
Author Name Unknown Organization [facility] Address [address] [place] [address]- Care Team Providers Care Economic Geographer Name Role Phone Roseline Ortega MD Primary Care Physician [facility] Date(s): 01/03/23 - 02/02/23 [facility] [address] [place], [place] [address] Allergies, Adverse Reactions, Alerts Substance Reaction Severity Status metFORMIN myalgia Active Immunizations Given and Recorded Vaccine Date Status Refusal Reason [id number] 12y+ bivalent booster vax 02/16/22 Recorded SARS-CoV-2 (COVID-19) mRNA BNT-162b2 vac 03/22/21 Given SARS-CoV-2 (COVID-19) mRNA BNT-162b2 vac 07/11/20 Recorded SARS-CoV-2 (COVID-19) mRNA BNT-162b2 vac 06/20/20 Recorded influenza virus vaccine, inactivated 1 12/16/20 Gi lenadra influenza virus vaccine, inactivated 2 12/12/19 Gi [...] tolerated inj. without complications....CO 2Result Comment: [facility] 22988-357-97 Pt tolerated vaccine without incident...NH 3Result Comment: [id number] 4Result Comment: [12/20/2017] [facility] [id number] 5Result Comment: [12/18/2012] given w/o incidense...mh 6Admin Note: at work 7Result Comment: [facility] [address]-4 Pt tolerated vaccine without incident...NH 8Admin Note: [...] 12/06/22 15:50:00 EDT, Route to Pharmacy Electronically, [id number], [facility] #[id number], 173, cm, 08/16/22 8:14:00 EDT, [place]... Start Date: 12/06/22 Stop Date: 01/05/23 Status: [...] 90 tablet, 3 Refills, 01/29/23 12:51:00 EST, [facility] #[id number], 173, cm, 01/29/23 11:56:00 EST, Height, 86, [...] tablet, 1 Refills, Maintenance, 07/23/20 12:40:00 EDT, [facility] #[id number], 174, cm, 06/10/20 10:35:00 EDT, Height, 90.2, [...] Gm, 0 Refills, Maintenance, 03/10/22 15:48:00 EST, [place], [facility] #[id number], Partial fill upon patient request if the [...] tablet, 1 Refills, Maintenance, 09/26/22 11:55:00 EDT, [facility] #[id number], dose increased from 5 mg, 173, cm, 08/16/22 8:14:00 EDT, Height, 86, kg, 08/14/22 3:21:00 EDT, Dry Weight Start Date: 09/26/22 Stop Date: 03/25/23 Status: Ordered Guaiasorb DM 20 mg-200 mg/10 mL oral liquid 10 mL, By Mouth, Every 8 hours, PRN Cough, for 10 days, # 300 mL, 0 Refills, Acute 02/08/23 12:49:00 EST, 01/29/23 12:49:00 EST, [facility] #13994, Partial fill upon patient request if the prescription is for a schedule II opioid drug., 10 m... Start Date: 01/29/23 Stop Date: 02/08/23 Status: Ordered losartan 100 mg oral tablet 1 tablet, By Mouth, Daily, # 90 tablet, 3 Refills, Maintenance, 01/29/23 12:52:00 EST, [facility] #77367, 173, cm, 01/29/23 11:56:00 EST, Height, 86, kg, 08/14/22 3:21:00 EDT, Dry Weight Start Date: 01/29/23 Status: Ordered Metoprolol Succinate ER 50 mg oral tablet, extended release 1 tablet = 50 mg, By Mouth, Daily, # 90 tablet, 3 Refills, Maintenance, 01/29/23 12:51:00 EST, ER Tablet, [facility] #52520, 173, cm, 01/29/23 11:56:00 EST, Height, 86, [...] Infiltrating ductal carcinoma of breast Confirmed Active Social History Social History Type Response Smoking Status Never smoker; Tobacc o user in household: No entered on: 07/16/13 Sex Patient Care team information Care Team Personnel Name: Jordan STOCKTON, Roseline Frey Position: [facility] Physician - Primary Care Member Role: PCP Address: Address: [address] [place] [address] Adult & [place] [address]- Care Team Related Persons Name: DELIA STOLL Address: [place] [address] Name: LYNNE STOLL Address: [address] [address]
--- OUTSIDE RECORDS SUMMARY | 2023-04-04 06:06 | XMS_ITS | Continuity of Care Document ---
Author Name Unknown Organization [facility] Address [address] [place] [address]- Care Team Providers Care Lens Silverer Name Role Phone Jordan STOCKTON, Roseline Frey Primary Care Physician Encounter [facility] Date(s): 09/10/20 - 10/10/20 [facility] [address] [place], [place] [address] Allergies, Adverse Reactions, Alerts Substance Reaction [...] influenza virus vaccine, inactivated 6 02/09/12 Gi leandar influenza virus vaccine, inactivated 12/13/10 Give n pneumococcal 13-valent vaccine 12/17/15 Given Pneumococcal Vaccine (oldterm) 07/26/10 Given Tetanus-Diphth Toxoids, Adult (oldterm) 7 07/26/10 Given 1Result Comment: [facility] [address]-3 Pt tolerated vaccine without incident...NH 2Result Comment: [facility] 87382-772-92 Pt tolerated vaccine without incident...NH 3Result Comment: [id number] 4Result Comment: [12/20/2017] [facility] 55505-164-54 5Result Comment: [12/18/2012] given w/o incidense...mh 6Admin [...] 1 Refills, Maintenance, 09/10/20 15:34:00 EDT, Tablet, [facility] #30158, simvastatin discontinued, lipids not at goal, 174, cm, 06/10/20 10:35:00 EDT, Height, 90.2, kg, 04/10/19 10:04:00 EST,... Start Date: 09/10/20 Stop Date: 03/09/21 Status: Ordered chlorthalidone 50 mg oral tablet 2 tablet = 100 mg, By Mouth, Daily, # 180 tablet, 3 Refills, Maintenance, 02/25/20 12:03:00 EST, Tablet, [facility] #[id number], dose increased from 50 mg daily, 174, cm, 02/25/20 11:26:00 EST, Height, 90.2, kg, 04/10/19 10:04:00 EST, Dry Weight Start Date: 02/25/20 Stop Date: 02/19/21 Status: Ordered FeroSul 325 mg oral tablet 1 tablet, By Mouth, Daily, # 100 tablet, 1 Refills, Maintenance, 07/23/20 12:40:00 EDT, [facility] #[id number], 174, cm, 06/10/20 10:35:00 EDT, Height, 90.2, [...] tablet, 1 Refills, Maintenance, 07/23/20 12:39:00 EDT, [facility] #[id number], dose increased from 5 mg, 174, cm, 06/10/20 10:35:00 EDT, Height, 90.2, kg, 04/10/19 10:04:00 EST, Dry Weight Start Date: 07/23/20 Stop Date: 01/19/21 Status: Ordered losartan 100 mg oral tablet 1 tablet = 100 mg, By Mouth, Daily, # 90 tablet, 0 Refills, Maintenance, 02/16/20 7:38:00 EST, Tablet, [facility] #[id number], change from losartan- hctz, 174, cm, 01/21/20 10:35:00 EST, Height, 90.2, kg, 04/10/19 10:04:00 EST, Dry Weight Start Date: 02/16/20 Status: Ordered Metoprolol Succinate ER 50 mg oral tablet, extended release 1 tablet = 50 mg, By Mouth, Daily, # 90 tablet, 1 Refills, Maintenance, 07/23/20 12:39:00 EDT, ER Tablet, [facility] #[id number], 174, cm, 06/10/20 10:35:00 EDT, Height, 90.2, [...]
--- OUTSIDE RECORDS SUMMARY | 2023-04-04 06:06 | XMS_ITS | Continuity of Care Document ---
Author Name Unknown Organization [facility] Address [address] [place] [address]- Care Team Providers Care Architecture Manager Name Role Phone Roseline Ortega MD Primary Care Physician Encounter [facility] [place] Date(s): 11/16/21 - 03/16/22 [facility] [address] [place] [address]- Attending Physician: Roseline Ortega MD Allergies, Adverse Reactions, Alerts Substance Reaction Severity Status metFORMIN myalgia Active Immunizations Given and Recorded Vaccine Date Status Refusal Reason [id number] 12y+ bivalent booster vax 02/16/22 Recorded SARS-CoV-2 [...] pt. tolerated inj. without complications....CO 2Result Comment: [facility] 97693-938-56 Pt tolerated vaccine without incident...NH 3Result Comment: [id number] 4Result Comment: [12/20/2017] [facility] 80873-682-42 5Result Comment: [12/18/2012] given w/o incidense...mh 6Admin Note: at work 7Result Comment: [facility] [address]-1 Pt tolerated vaccine without incident...NH 8Admin Note: GIVEN W/O INCEDENT Medications albuterol CFC free 90 mcg/inh inhalation aerosol 2, puffs, Inhalation, Every 6 hours, PRN, # 8.5 Gm, Refills 0, Tot. Refills 0, Maintenance, 03/10/22 15:49:00 EST, Route to Pharmacy Electronically, [id number], [facility] #[id number], 173, cm, 03/10/22 15:20:00 EST, Hei... Start Date: 03/10/22 Stop Date: 04/09/22 Status: Ordered aspirin 81 mg oral tablet 1 tablet = 81 mg, By Mouth, Daily, # 30 tablet, 0 Refills, Maintenance, 05/20/14 12:11:28, Tablet Start Date: 05/20/14 Status: Ordered atorvastatin 20 mg oral tablet 1 tablet, By Mouth, Daily, # 90 tablet, 1 Refills, 10/11/21 10:22:00 EDT, [facility] #[id number], 173, cm, 10/11/21 10:04:00 EDT, Height, 91.6, kg, 06/05/21 22:06:00 EDT, Dry Weight Start Date: 10/11/21 Status: Ordered chlorthalidone 50 mg oral tablet 2 tablet, By Mouth, Daily, # 180 tablet, 0 Refills, [facility] #[id number], 173, cm, 06/21/21 13:45:00 EDT, Height, 91.6, kg, 06/05/21 22:06:00 EDT, Dry Weight Start Date: 09/29/21 Status: Ordered FeroSul 325 mg oral tablet 1 tablet, By Mouth, Daily, # 100 tablet, 1 Refills, Maintenance, 07/23/20 12:40:00 EDT, [facility] #[id number], 174, cm, 06/10/20 10:35:00 EDT, Height, 90.2, [...] Gm, 0 Refills, Maintenance, 03/10/22 15:48:00 EST, [place], [facility] #[id number], Partial fill upon patient request if the [...] tablet, 1 Refills, Maintenance, 10/11/21 10:22:00 EDT, [facility] #[id number], dose increased from 5 mg, 173, cm, 10/11/21 10:04:00 EDT, Height, 91.6, kg, 06/05/21 22:06:00 EDT, Dry Weight Start Date: 10/11/21 Stop Date: 04/09/22 Status: Ordered lidocaine 5% topical film 1 patch, Topically, Daily, PRN Pain , Mild, remove after 12 hours, # 13 each, 0 Refills, Maintenance, 06/05/21 21:29:00 EDT, [place], [facility] #[id number], Partial fill upon patient request if the prescription is for a schedule II opioid drug., 1... Start Date: 06/05/21 Status: Ordered losartan 100 mg oral tablet 1 tablet, By Mouth, Daily, # 90 tablet, 1 Refills, Maintenance, 02/07/22 7:41:00 EST, [facility] #[id number], 173, cm, 10/25/21 15:43:00 EDT, Height, 91.6, kg, 06/05/21 22:06:00 EDT, Dry Weight Start Date: 02/07/22 Status: Ordered Metoprolol Succinate ER 50 mg oral tablet, extended release 1 tablet = 50 mg, By Mouth, Daily, # 90 tablet, 1 Refills, Maintenance, 10/11/21 10:22:00 EDT, ER Tablet, [facility] #[id number], 173, cm, 10/11/21 10:04:00 EDT, Height, 91.6, [...] Personnel Name: Jordan STOCKTON, Roseline Frey Position: [facility] Primary Care Physician Member Role: PCP Address: Address: [address] [place] [address] Adult [place] [address]- Care Team Related Persons Name: DELIA STOLL Address: [place] [address] Name: LYNNE STOLL Address: home [address] [place] [id number]
--- OUTSIDE RECORDS SUMMARY | 2023-04-04 06:06 | XMS_ITS | Continuity of Care Document ---
Author Name Unknown Organization [facility] Address [address] [place] [address]- Care Team Providers Care Financial Representative Name Role Phone Jordan STOCKTON, Roseline Frey Primary Care Physician [place] [facility] [place] 10[place]29[place]19 - 11/28/19 [facility] [address] [place] [address]- [facility] Allergies, Adverse Reactions, Alerts Substance Reaction Severity [...] Adult (oldterm) 5 07/26/10 Given 1Result Comment: [id number] 2Result Comment: [12/20/2017] [facility] 24809-691-82 3Result Comment: [12/18/2012] given w/o incidense...mh 4Admin [...] tablet, 0 Refills, Maintenance, 11/12/19 14:03:00 EDT, [facility] #[id number], 174, cm, 10/24/19 20:33:00 EDT, Height, 90.2, [...] tablet, 3 Refills, Maintenance, 04/10/19 10:26:00 EST, [facility] #[id number], dose increased from 5 mg, 172, cm, 04/10/19 10:04:00 EST, Height, 90.2, kg, 04/10/19 10:04:00 EST, Dry Weight Start Date: 04/10/19 Stop Date: 04/04/20 Status: Ordered losartan 100 mg oral tablet 1 tablet = 100 mg, By Mouth, Daily, # 90 tablet, 0 Refills, Maintenance, 11/12/19 11:16:00 EDT, Tablet, [facility] #51625, change from losartan-hctz, 174, cm, 10/24/19 20:33:00 EDT, Height,90.2, kg, 04/10/19 10:04:00 EST, Dry Weight Start Date: 11/12/19 Status: Ordered Metoprolol Succinate ER 50 mg oral tablet, extended release 1 tablet = 50 mg, By Mouth, Daily, # 90 tablet, 0 Refills, Maintenance, 11/12/19 11:16:00 EDT, ER Tablet, [facility] #[id number], 174, cm, 10/24/19 20:33:00 EDT, Height, 90.2, kg, 04/10/19 10:04:00 EST, Dry Weight Start Date: 11/12/19 Stop Date: 02/10/20 Status: Ordered NIFEdipine 60 mg oral tablet, extended release 60 mg, 1, tablet, By Mouth, Daily, # 90 tablet, Refills 0, Tot. Refills 0, Maintenance, 06/12/19 10:13:00 EDT, Route to Pharmacy Electronically, [facility] #[id number], 172, cm, 04/10/19 10:04:00 EST, Height, 90.2, kg, 04/10/19 10:04:00 EST, Dry... Start Date: 06/12/19 Stop Date: 09/10/19 Status: Ordered simvastatin 40 mg oral tablet 40 mg, 1, tablet, By Mouth, Daily at bedtime, # 90 tablet, Refills 0, Tot. Refills 0, Maintenance, 11/12/19 11:16:00 EDT, Route to Pharmacy Electronically, [facility] #[id number], 174, cm, 10/24/19 20:33:00 EDT, Height, 90.2, [...]
--- OUTSIDE RECORDS SUMMARY | 2023-04-04 06:06 | XMS_ITS | Continuity of Care Document ---
Author Name Unknown Organization [facility] Address [address] [place] [address]- Care Team Providers Care Gas Plant Worker Name Role Phone Jordan STOCKTON, Roseline Frey Primary Care Physician [place] [facility] [place] Date(s): 08/15/22 - 09/14/22 [facility] [address] [place] [address]- Allergies, Adverse Reactions, Alerts Substance Reaction Severity Status metFORMIN myalgia Active Immunizations Given and Recorded Vaccine Date Status Refusal Reason [id number] 12y+ bivalent booster vax 02/16/22 Recorded SARS-CoV-2 [...] pt. tolerated inj. without complications....[place] 2Result Comment: [facility] 89800-329-40 Pt tolerated vaccine without incident...NH 3Result Comment: [id number] 4Result Comment: [12/20/2017] [facility] 62669-313-15 5Result Comment: [12/18/2012] given w/o incidense...mh 6Admin Note: at work 7Result Comment: [facility] [address]-2 Pt tolerated vaccine without incident...NH 8Admin Note: GIVEN W/O INCEDENT Medications albuterol CFC free 90 mcg/inh inhalation aerosol 2, puffs, Inhalation, Every 6 hours, PRN, # 8.5 Gm, Refills 0, Tot. Refills 0, Maintenance, 03/10/22 15:49:00 EST, Route to Pharmacy Electronically, [id number], [facility] #[id number], 173, cm, 03/10/22 15:20:00 EST, Hei... Start Date: 03/10/22 Stop Date: 04/09/22 Status: Ordered aspirin 81 mg oral tablet 1 tablet = 81 mg, By Mouth, Daily, # 30 tablet, 0 Refills, Maintenance, 05/20/14 12:11:28, Tablet Start Date: 05/20/14 Status: Ordered atorvastatin 20 mg oral tablet 1 tablet, By Mouth, Daily, # 90 tablet, 1 Refills, 10/11/21 10:22:00 EDT, [facility] #[id number], 173, cm, 10/11/21 10:04:00 EDT, Height, 91.6, kg, 06/05/21 22:06:00 EDT, Dry Weight Start Date: 10/11/21 Status: Ordered chlorthalidone 50 mg oral tablet 2 tablet, By Mouth, Daily, # 180 tablet, 0 Refills, [facility] #73577, 173, cm, 06/21/21 13:45:00 EDT, Height, 91.6, kg, 06/05/21 22:06:00 EDT, Dry Weight Start Date: 09/29/21 Status: Ordered FeroSul 325 mg oral tablet 1 tablet, By Mouth, Daily, # 100 tablet, 1 Refills, Maintenance, 07/23/20 12:40:00 EDT, [facility] #[id number], 174, cm, 06/10/20 10:35:00 EDT, Height, 90.2, [...] Gm, 0 Refills, Maintenance, 03/10/22 15:48:00 EST, [place], [facility] #[id number], Partial fill upon patient request if the [...] tablet, 1 Refills, Maintenance, 10/11/21 10:22:00 EDT, [facility] #[id number], dose increased from 5 mg, 173, cm, 10/11/21 10:04:00 EDT, Height, 91.6, kg, 06/05/21 22:06:00 EDT, Dry Weight Start Date: 10/11/21 Stop Date: 04/09/22 Status: Ordered lidocaine 5% topical film 1 patch, Topically, Daily, PRN Pain , Mild, remove after 12 hours, # 13 each, 0 Refills, Maintenance, 06/05/21 21:29:00 EDT, Film, [facility] #[id number], Partial fill upon patient request if the prescription is for a schedule II opioid drug., 1... Start Date: 06/05/21 Status: Ordered losartan 100 mg oral tablet 1 tablet, By Mouth, Daily, # 90 tablet, 1 Refills, Maintenance, 08/08/22 20:35:00 EDT, [facility] #[id number], 173, cm, 07/26/22 9:01:00 EDT, Height, 91.6, kg, 06/05/21 22:06:00 EDT, Dry Weight Start Date: 08/08/22 Status: Ordered Metoprolol Succinate ER 50 mg oral tablet, extended release 1 tablet = 50 mg, By Mouth, Daily, # 90 tablet, 1 Refills, Maintenance, 10/11/21 10:22:00 EDT, ER Tablet, [facility] #[id number], 173, cm, 10/11/21 10:04:00 EDT, Height, 91.6, [...] Personnel Name: Jordan STOCKTON, Roseline Frey Position: [facility] Physician - Primary Care Member Role: PCP Address: Address: [address] [place] [address] Adult & [place] [address]- Care Team Related Persons Name: DELIA STOLL Address: [place] [address] Name: LYNNE STOLL Address: home [address] [place] [address]
--- OUTSIDE RECORDS SUMMARY | 2023-04-04 06:06 | XMS_ITS | Continuity of Care Document ---
Author Name Unknown Organization [facility] Address [address] [place] [address]- Care Team Providers Care It Business Systems Analyst Name Role Phone Roseline Ortega MD Primary Care Physician Encounter [facility] [place] Date(s): 07/26/22 - 08/02/22 [facility] [address] [place], [place] [address] Attending Physician: Roseline Ortega MD Allergies, Adverse Reactions, Alerts Substance Reaction Severity Status metFORMIN myalgia Active Immunizations Given and Recorded Vaccine Date Status Refusal Reason [id number] 12y+ bivalent booster vax 02/16/22 Recorded SARS-CoV-2 [...] pt. tolerated inj. without complications....CO 2Result Comment: [facility] 65172-444-89 Pt tolerated vaccine without incident...NH 3Result Comment: [id number] 4Result Comment: [12/20/2017] [facility] [place] 38270-688-09 5Result Comment: [12/18/2012] given w/o incidense...mh 6Admin Note: at work 7Result Comment: [facility] [address]-5 Pt tolerated vaccine without incident...NH 8Admin Note: GIVEN W/O INCEDENT Medications albuterol CFC free 90 mcg/inh inhalation aerosol 2, puffs, Inhalation, Every 6 hours, PRN, # 8.5 Gm, Refills 0, Tot. Refills 0, Maintenance, 03/10/22 15:49:00 EST, Route to Pharmacy Electronically, [id number], [facility] #[id number], 173, cm, 03/10/22 15:20:00 EST, Hei... Start Date: 03/10/22 Stop Date: 04/09/22 Status: Ordered aspirin 81 mg oral tablet 1 tablet = 81 mg, By Mouth, Daily, # 30 tablet, 0 Refills, Maintenance, 05/20/14 12:11:28, Tablet Start Date: 05/20/14 Status: Ordered atorvastatin 20 mg oral tablet 1 tablet, By Mouth, Daily, # 90 tablet, 1 Refills, 10/11/21 10:22:00 EDT, [facility] #[id number], 173, cm, 10/11/21 10:04:00 EDT, Height, 91.6, kg, 06/05/21 22:06:00 EDT, Dry Weight Start Date: 10/11/21 Status: Ordered chlorthalidone 50 mg oral tablet 2 tablet, By Mouth, Daily, # 180 tablet, 0 Refills, [facility] #[id number], 173, cm, 06/21/21 13:45:00 EDT, Height, 91.6, kg, 06/05/21 22:06:00 EDT, Dry Weight Start Date: 09/29/21 Status: Ordered FeroSul 325 mg oral tablet 1 tablet, By Mouth, Daily, # 100 tablet, 1 Refills, Maintenance, 07/23/20 12:40:00 EDT, [facility] #[id number], 174, cm, 06/10/20 10:35:00 EDT, Height, 90.2, [...] Gm, 0 Refills, Maintenance, 03/10/22 15:48:00 EST, [place], [facility] #[id number], Partial fill upon patient request if the [...] tablet, 1 Refills, Maintenance, 10/11/21 10:22:00 EDT, [facility] #64691, dose increased from 5 mg, 173, cm, 10/11/21 10:04:00 EDT, Height, 91.6, kg, 06/05/21 22:06:00 EDT, Dry Weight Start Date: 10/11/21 Stop Date: 04/09/22 Status: Ordered lidocaine 5% topical film 1 patch, Topically, Daily, PRN Pain , Mild, remove after 12 hours, # 13 each, 0 Refills, Maintenance, 06/05/21 21:29:00 EDT, [place], [facility] #[id number], Partial fill upon patient request if the prescription is for a schedule II opioid drug., 1... Start Date: 06/05/21 Status: Ordered losartan 100 mg oral tablet 1 tablet, By Mouth, Daily, # 90 tablet, 1 Refills, Maintenance, 02/07/22 7:41:00 EST, [facility] #[id number], 173, cm, 10/25/21 15:43:00 EDT, Height, 91.6, kg, 06/05/21 22:06:00 EDT, Dry Weight Start Date: 02/07/22 Status: Ordered Metoprolol Succinate ER 50 mg oral tablet, extended release 1 tablet = 50 mg, By Mouth, Daily, # 90 tablet, 1 Refills, Maintenance, 10/11/21 10:22:00 EDT, ER Tablet, [facility] #[id number], 173, cm, 10/11/21 10:04:00 EDT, Height, 91.6, [...] [Reference Range]: 1 2 Height 173 cm (07/26/22 9:01 AM) 173 cm (07/26/22 8:58 AM) Weight 86.3 kg (07/26/22 8:58 AM) Oxygen Saturation [94-100 %] 98 % (07/26/22 8:58 AM) Pulse Rate [55-90 bpm] 78 bpm (07/26/22 8:58 AM) Body Mass Index [18.5-24.99 kg/m2] 28.83 kg/m2 *H* (07/26/22 8:58 AM) Blood Pressure [90-138/55-84 mm Hg] 233/ 102mm Hg *H* (07/26/22 9:01 AM) 237/109mm Hg *H* (07/26/22 8:58 AM) Mode of Delivery (Oxygen) Room air (07/26/22 8:58 AM) Blood pressure sites Arm, left (07/26/22 9:01 AM) Arm, left (07/26/22 8:58 AM) Weight Obtained Via Standing scale (07/26/22 8:58 AM) Social History Social History Type Response Smoking Status Never smoker; Tobacc o user in household: No entered on: 07/16/13 Sex Note * Tricia Antonio: PERFORM, SIGN, VERIFY Event Display: Patient Education/Instruction Authored Date: [id number] [facility] *[facility] Clinical Summary Name KRISTY STOLL Age 81 Years 1940 PCP Jordan STOCKTON, Roseline Frey PCP Visit Date 07/26/2022 08:52:00 Additional Instructions: Scheduled Appointments?? Future Appointments ?*No[facility]Adult??Ped ?Phone:??--?Fax:??-- ?Appt. Date:??07/28/2022?9:20 AM ?Scheduled Provider:??[facility] Clinical Follow-Up Instructions ?? Diagnosis Essential (primary) hypertension; Unspecified lump in unspecified breast; Type 2 diabetes mellitus with hyperglycemia Medications: Please continue your medications until treatment is completed or stopped by your provider. Discuss any questions related to medications with your provider. Medications to Continue with No Changes These medications were not printed or sent to your pharmacy Albuterol (albuterol CFC free 90 mcg/inh inhalation aerosol) 2 puff(s) Inhalation every 6 hours as needed Wheezing/Shortness of Breath for 30 Days. Refills: 0. Next Dose: Ascorbic Acid (Vitamin C 100 [...] for 30 Days. Refills: 0. Next Dose: GlipiZIDE (glipiZIDE 10 mg oral [...] Daily for 90Days. Refills: 1. Next Dose: [place]-3 Polyunsaturated Fatty Acids (Fish Oil 1000 mg oral capsule) 1 capsule Oral twice a day. Next Dose: Allergy Info:?? metFORMIN Medications Given This Visit Future Orders ?MM Digital Screen Mammo Unilat Left? Order Date:07/26/22?- Complete on or after?07/26/22 ?US Breast Axillary Right? Order Date:07/26/22?- Complete on or after?07/26/22 Vital Signs Height 173 cm Weight 86.3 kg BMI 28.83 kg/m2 Blood Pressure 233 mm Hg/102 mm Hg Temperature Pulse Rate 78 bpm Respiratory Rate 02 Sat Mode of Delivery 98 %/Room air You can now view a summary of your hospital visit from the comfort of your home through a free online portal called [facility]. [facility] is a website that allows you to securely view your medical information including discharge summary, medications and follow-up visits. ??You can alsosend a secure electronic message to your doctor???s office to request appointments, renew medications or just ask a question. You can enroll at [email or web address] or register during your next office visit. [...] primary care provider, you may find a [facility] provider by calling [facility] [employer] at [phone]. For information about the plan of care [...] Primary Care Member Role: PCP Address: Address: [address] [place] [address] Adult & [place] [address]- Care Team Related Persons Name: DELIA STOLL Address: [place] [address] Name: LYNNE STOLL Address: home [address] [place] [id number]
--- OUTSIDE RECORDS SUMMARY | 2023-04-04 06:06 | XMS_ITS | Continuity of Care Document ---
Author Name Unknown Organization [facility] ter Address [address] [place] [address]- Care Team Providers Care Electrical Continuity Tester Name Role Phone Roseline Ortega MD Primary Care Physician [phone] Encounter [facility] Date(s): 10/24/19 - 10/24/[address] [address]- [facility] Discharge Disposition: A-D/C Home Attending Physician: Hal Bae MD Admitting Physician: Hal Bae MD Referring Physician: Not on Staff, Referring MD Allergies, Adverse Reactions, Alerts Substance Reaction [...] Adult (oldterm) 5 07/26/10 Given 1Result Comment: [id number] 2Result Comment: [12/20/2017] [facility] 08293-161-03 3Result Comment: [12/18/2012] given w/o incidense...mh 4Admin [...] tablet, 3 Refills, Maintenance, 04/10/19 10:26:00 EST, [facility] #[id number], dose increased from 5 mg, 172, cm, [...] 06/12/19 10:13:00 EDT, Route to Pharmacy Electronically, [facility] #[id number], 172, cm, 04/10/19 10:04:00 EST, Height, 90.2, kg, 04/10/19 10:04:00 EST, Dry... Start Date: 06/12/19 Stop Date: 09/10/19 Status: Ordered simvastatin 40 mg oral tablet 40 mg, 1, tablet, By Mouth, Daily at bedtime, # 90 tablet, Refills 3, Tot. Refills 3, Maintenance, 10/31/18 9:36:28 EDT, Route to Pharmacy Electronically, [id number], [facility] #[id number] Start Date: 10/31/18 Status: Ordered Vitamin B12 [...] type II(Confirmed) Active Hyperlipidemia(Confirmed) Active Hypertension(Confirmed) Active Results Radiology Reports * Exam Date Time Procedure Performing Provider Status 10/24/19 7:55 PM Knee 1 or 2 Views Right Ofe Topete ; Radha (Verified) Notes: (Knee 1 or 2 Views Right) Reason For Exam: with Pain;Trauma RESULT: Knee 1 or 2 Views Right Knee 1 or 2 Views Right, 3 views Hx of Present Illness: pt states she woke with a swollen right knee, pt states she did not take hermeds today as usual because she was sleeping; Reason: Trauma; with Pain; Clinical Question(s): Fracture; Special Instructions: This is a protocol film and radiologist should call any findings to the Charge Nurse COMPARISON: None. FINDINGS: No acute fracture or dislocation. Suspected small moderate knee joint effusion. Tricompartment osteoarthritis. A few calcifications adjacent to the patella could represent loose bodies. Enthesopathy at the superior patellar pole. Vascular calcifications are noted. IMPRESSION: No acute osseous injury. Knee joint effusion. WSN: [id number] Ordering Physician: Hal Bae MD Dictated By: Severiano Randhawa MD Dictated Date/Time: 10/24/19 8:00 pm Reviewed By: Severiano Randhawa MD Signed By: Severiano Randhawa MD Signed Date/Time: 10/24/19 8:00 pm Transcribed By: JHOAN Transcribed Date/Time: 10/24/19 7:59 pm Vital Signs Most recent to oldest [Reference Range]: 1 2 3 Height 174 cm (10/24/19 8:33 PM) 174 cm (10/24/19 8:15 PM) 174 cm (10/24/19 7:19 PM) Weight 92 kg (10/24/19 8:33 PM) 92 kg (10/24/19 8:15 PM) 92 kg (10/24/19 7:19 PM) Oxygen Saturation [94-100 %] 99 % (10/24/19 8:33 PM) 100 % (10/24/19 7:19 PM) 99 % (10/24/19 6:59 PM) Pulse Rate [55-90 bpm] 60 bpm (10/24/19 8:33 PM) 70 bpm (10/24/19 7:19 PM) 72 bpm (10/24/19 6:59 PM) Blood Pressure [90-138/55-84 mm Hg] 212/78mm Hg *H* (10/24/19 8:33 PM) 214/86mm Hg *H* (10/24/19 7:19 PM) 204/76mm Hg *H* (10/24/19 6:59 PM) Respiratory Rate [16-30 br/min] 16 br/min (10/24/19 8:33 PM) 16 br/min (10/24/19 7:19 PM) 20 br/min (10/24/19 6:59 PM) Temperature [96.8-100.4 DegF] 97.9 DegF (10/24/19 8:33 PM) 98 DegF (10/24/19 7:19 PM) 98.2 DegF (10/24/19 6:59 PM) Mode of Delivery (Oxygen) Room air (10/24/19 8:33 PM) Room air (10/24/19 7:19 PM) Room air (10/24/19 6:59 PM) Blood pressure sites Arm, right (10/24/19 7:19 PM) Arm, left (10/24/19 6:59 PM) Temperature Route Oral (10/24/19 8:33 PM) Oral (10/24/19 7:19 PM) Oral (10/24/19 6:59 PM) Social History Social History Type Response Smoking Status Never smoker; Tobacc o user in household: No entered on: 07/16/13 Sex
--- OUTSIDE RECORDS SUMMARY | 2023-04-04 06:06 | XMS_ITS | Continuity of Care Document ---
Author Name Unknown Organization [facility] Address [address] [place] [address]- Care Team Providers Care Senior Tax Accountant Name Role Phone Jordan STOCKTON, Roseline Frey Primary Care Physician [facility]counter [facility] Date(s): 08/17/22 - 09/16/22 [facility] [address] [place] [address]- Allergies, Adverse Reactions, Alerts Substance Reaction Severity Status metFORMIN myalgia Active Immunizations Given and Recorded Vaccine Date Status Refusal Reason [id number] 12y+ bivalent booster vax 02/16/22 Recorded SARS-CoV-2 [...] pt. tolerated inj. without complications....CO 2Result Comment: [facility] 41873-769-53 Pt tolerated vaccine without incident...NH 3Result Comment: [id number] 4Result Comment: [12/20/2017] [facility] 16076-166-03 5Result Comment: [12/18/2012] given w/o incidense...mh 6Admin Note: at work 7Result Comment: [facility] [address]-4 Pt tolerated vaccine without incident...NH 8Admin Note: GIVEN W/O INCEDENT Medications albuterol CFC free 90 mcg/inh inhalation aerosol 2, puffs, Inhalation, Every 6 hours, PRN, # 8.5 Gm, Refills 0, Tot. Refills 0, Maintenance, 03/10/22 15:49:00 EST, Route to Pharmacy Electronically, [id number], [facility] #[id number], 173, cm, 03/10/22 15:20:00 EST, Hei... Start Date: 03/10/22 Stop Date: 04/09/22 Status: Ordered aspirin 81 mg oral tablet 1 tablet = 81 mg, By Mouth, Daily, # 30 tablet, 0 Refills, Maintenance, 05/20/14 12:11:28, Tablet Start Date: 05/20/14 Status: Ordered atorvastatin 20 mg oral tablet 1 tablet, By Mouth, Daily, # 90 tablet, 1 Refills, 10/11/21 10:22:00 EDT, [facility] #[id number], 173, cm, 10/11/21 10:04:00 EDT, Height, 91.6, kg, 06/05/21 22:06:00 EDT, Dry Weight Start Date: 10/11/21 Status: Ordered chlorthalidone 50 mg oral tablet 2 tablet, By Mouth, Daily, # 180 tablet, 0 Refills, [facility] #[id number], 173, cm, 06/21/21 13:45:00 EDT, Height, 91.6, kg, 06/05/21 22:06:00 EDT, Dry Weight Start Date: 09/29/21 Status: Ordered FeroSul 325 mg oral tablet 1 tablet, By Mouth, Daily, # 100 tablet, 1 Refills, Maintenance, 07/23/20 12:40:00 EDT, [facility] #[id number], 174, cm, 06/10/20 10:35:00 EDT, Height, 90.2, [...] Gm, 0 Refills, Maintenance, 03/10/22 15:48:00 EST, [place], [facility] #[id number], Partial fill upon patient request if the [...] tablet, 1 Refills, Maintenance, 10/11/21 10:22:00 EDT, [facility] #[id number], dose increased from 5 mg, 173, cm, 10/11/21 10:04:00 EDT, Height, 91.6, kg, 06/05/21 22:06:00 EDT, Dry Weight Start Date: 10/11/21 Stop Date: 04/09/22 Status: Ordered lidocaine 5% topical film 1 patch, Topically, Daily, PRN Pain , Mild, remove after 12 hours, # 13 each, 0 Refills, Maintenance, 06/05/21 21:29:00 EDT, [place], [facility] #[id number], Partial fill upon patient request if the prescription is for a schedule II opioid drug., 1... Start Date: 06/05/21 Status: Ordered losartan 100 mg oral tablet 1 tablet, By Mouth, Daily, # 90 tablet, 1 Refills, Maintenance, 08/08/22 20:35:00 EDT, [facility] #[id number], 173, cm, 07/26/22 9:01:00 EDT, Height, 91.6, kg, 06/05/21 22:06:00 EDT, Dry Weight Start Date: 08/08/22 Status: Ordered Metoprolol Succinate ER 50 mg oral tablet, extended release 1 tablet = 50 mg, By Mouth, Daily, # 90 tablet, 1 Refills, Maintenance, 10/11/21 10:22:00 EDT, ER Tablet, [facility] #[id number], 173, cm, 10/11/21 10:04:00 EDT, Height, 91.6, [...] Personnel Name: Jordan STOCKTON, Roseline Frey Position: [facility] Physician - Primary Care Member Role: PCP Address: Address: [address] [place] [address] Adult [place] [address]- Care Team Related Persons Name: DELIA STOLL Address: [place] [address] Name: LYNNE STOLL Address: [address] [address]
--- OUTSIDE RECORDS SUMMARY | 2023-04-04 06:06 | XMS_ITS | Continuity of Care Document ---
Author Name Unknown Organization [facility] Address [address] [place] [address]- Care Team Providers Care Server Cashier Name Role Phone Roseline Ortega MD Primary Care Physician Encounter [facility] Date(s): 10/07/19 - 01/04/20 [facility] [address] [place] [address]- [facility] Attending Physician: Roseline Ortega MD Allergies, Adverse [...] Adult (oldterm) 6 07/26/10 Given 1Result Comment: [facility] 12599-827-64 Pt tolerated vaccine without incident...NH 2Result Comment: [id number] 3Result Comment: [12/20/2017] [facility] [id number] 4Result Comment: [12/18/2012] given w/o incidense...mh 5Admin [...] tablet, 0 Refills, Maintenance, 11/12/19 14:03:00 EDT, [facility] #[id number], 174, cm, 10/24/19 20:33:00 EDT, Height, 90.2, [...] tablet, 3 Refills, Maintenance, 04/10/19 10:26:00 EST, [facility] #86605, dose increased from 5 mg, 172, cm, 04/10/19 10:04:00 EST, Height, 90.2, kg, 04/10/19 10:04:00 EST, Dry Weight Start Date: 04/10/19 Stop Date: 04/04/20 Status: Ordered losartan 100 mg oral tablet 1 tablet = 100 mg, By Mouth, Daily, # 90 tablet, 0 Refills, Maintenance, 11/12/19 11:16:00 EDT, Tablet, [facility] #[id number], change from losartan-hctz, 174, cm, 10/24/19 20:33:00 EDT, Height,90.2, kg, 04/10/19 10:04:00 EST, Dry Weight Start Date: 11/12/19 Status: Ordered Metoprolol Succinate ER 50 mg oral tablet, extended release 1 tablet = 50 mg, By Mouth, Daily, # 90 tablet, 0 Refills, Maintenance, 11/12/19 11:16:00 EDT, ER Tablet, [facility] #49774, 174, cm, 10/24/19 20:33:00 EDT, Height, 90.2, kg, 04/10/19 10:04:00 EST, Dry Weight Start Date: 11/12/19 Stop Date: 02/10/20 Status: Ordered NIFEdipine 60 mg oral tablet, extended release 60 mg, 1, tablet, By Mouth, Daily, # 90 tablet, Refills 0, Tot. Refills 0, Maintenance, 06/12/19 10:13:00 EDT, Route to Pharmacy Electronically, [facility] #[id number], 172, cm, 04/10/19 10:04:00 EST, Height, 90.2, kg, 04/10/19 10:04:00 EST, Dry... Start Date: 06/12/19 Stop Date: 09/10/19 Status: Ordered simvastatin 40 mg oral tablet 40 mg, 1, tablet, By Mouth, Daily at bedtime, # 90 tablet, Refills 0, Tot. Refills 0, Maintenance, 11/12/19 11:16:00 EDT, Route to Pharmacy Electronically, [facility] #[id number], 174, cm, 10/24/19 20:33:00 EDT, Height, 90.2, [...]
--- OUTSIDE RECORDS SUMMARY | 2023-04-04 06:06 | XMS_ITS | Continuity of Care Document ---
Author Name Unknown Organization [facility] Address [address] [place] [address]- Care Team Providers Care Pv Design Engineer Name Role Phone Roseline Ortega MD Primary Care Physician [phone] Encounter [facility] Date(s): 11/17/20 - 11/24/20 [facility] [address] [place], [place] [address] Attending Physician: Roseline Ortega [...] Adult (oldterm) 7 07/26/10 Given 1Result Comment: [facility] [address]-6 Pt tolerated vaccine without incident...NH 2Result Comment: [facility] 47231-161-11 Pt tolerated vaccine without incident...[place] 3Result Comment: [id number] 4Result Comment: [12/20/2017] [facility] 71155-210-86 5Result Comment: [12/18/2012] given w/o incidense...mh 6Admin [...] 1 Refills, Maintenance, 09/10/20 15:34:00 EDT, Tablet, [email or web address] #[id number], simvastatin discontinued, lipids not at goal, 174, cm, 06/10/20 10:35:00 EDT, Height, 90.2, kg, 04/10/19 10:04:00 EST,... Start Date: 09/10/20 Stop Date: 03/09/21 Status: Ordered chlorthalidone 50 mg oral tablet 2 tablet = 100 mg, By Mouth, Daily, # 180 tablet, 3 Refills, Maintenance, 02/25/20 12:03:00 EST, Tablet, [facility] #[id number], dose increased from 50 mg daily, 174, cm, 02/25/20 11:26:00 EST, Height, 90.2, kg, 04/10/19 10:04:00 EST, Dry Weight Start Date: 02/25/20 Stop Date: 02/19/21 Status: Ordered FeroSul 325 mg oral tablet 1 tablet, By Mouth, Daily, # 100 tablet, 1 Refills, Maintenance, 07/23/20 12:40:00 EDT, [email or web address] #[id number], 174, cm, 06/10/20 10:35:00 EDT, Height, 90.2, [...] tablet, 1 Refills, Maintenance, 07/23/20 12:39:00 EDT, [email or web address] #76106, dose increased from 5 mg, 174, cm, 06/10/20 10:35:00 EDT, Height, 90.2, kg, 04/10/19 10:04:00 EST, Dry Weight Start Date: 07/23/20 Stop Date: 01/19/21 Status: Ordered losartan 100 mg oral tablet 1 tablet = 100 mg, By Mouth, Daily, # 90 tablet, 1 Refills, Maintenance, 11/17/20 14:27:00 EDT, Tablet, [email or web address] #12051, change from losartan-hctz, 174, cm, 11/17/20 13:45:00 EDT, Height,90.2, kg, 04/10/19 10:04:00 EST, Dry Weight Start Date: 11/17/20 Status: Ordered Metoprolol Succinate ER 50 mg oral tablet, extended release 1 tablet = 50 mg, By Mouth, Daily, # 90 tablet, 1 Refills, Maintenance, 07/23/20 12:39:00 EDT, ER Tablet, [facility] #[id number], 174, cm, 06/10/20 10:35:00 EDT, Height, 90.2, [...] [Reference Range]: 1 2 Height 174 cm (11/17/20 1:45 PM) 174 cm (11/17/20 1:42 PM) Weight 83.4 kg (11/17/20 1:42 PM) Oxygen Saturation [94-100 %] 98 % (11/17/20 1:42 PM) Pulse Rate [55-90 bpm] 55 bpm (11/17/20 1:42 PM) Body Mass Index [18.5-24.99] 27.55 *H* (11/17/20 1:42 PM) Blood Pressure [90-138/55-84 mm Hg] 154/ 80mm Hg *H* (11/17/20 1:45 PM) 156/80mm Hg *H* (11/17/20 1:42 PM) Temperature [96.8-100.4 DegF] 98 DegF (11/17/20 1:42 PM) Blood pressure sites Arm, left (11/17/20 1:45 PM) Arm, left (11/17/20 1:42 PM) Temperature Route Temporal (11/17/20 1:42 PM) Weight Obtained Via Standing scale (11/17/20 1:42 PM) Social History Social History Type Response Smoking Status Never smoker; Tobacc o user in household: No entered on: 07/16/13 Sex
--- OUTSIDE RECORDS SUMMARY | 2023-04-04 06:06 | XMS_ITS | Continuity of Care Document ---
Author Name Unknown Organization [facility] Address [address] [place] [address]- Care Team Providers Care Automotive Mechanical Engineer Name Role Phone Jordan STOCKTON, Roseline Frey Primary Care Physician Encounter [facility] Date(s): 06/21/21 - 09/22/21 [facility] [address] [place], [place] [address] Attending Physician: Roseline Ortega MD Allergies, [...] pt. tolerated inj. without complications....CO 2Result Comment: [facility] 80546-659-72 Pt tolerated vaccine without incident...NH 3Result Comment: [id number] 4Result Comment: [12/20/2017] [facility] 91614-510-89 5Result Comment: [12/18/2012] given w/o incidense...mh 6Admin Note: at work 7Result Comment: [facility] [address]-2 Pt tolerated vaccine without incident...NH 8Admin Note: GIVEN W/O INCEDENT Medications aspirin 81 mg oral tablet 1 tablet = 81 mg, By Mouth, Daily, # 30 tablet, 0 Refills, Maintenance, 05/20/14 12:11:28, Tablet Start Date: 05/20/14 Status: Ordered atorvastatin 20 mg oral tablet 1 tablet, By Mouth, Daily, # 90 tablet, 1 Refills, [facility] #[id number], 173, cm, 06/21/21 13:45:00 EDT, Height, 91.6, kg, 06/05/21 22:06:00 EDT, Dry Weight Start Date: 06/28/21 Status: Ordered chlorthalidone 50 mg oral tablet 2 tablet, By Mouth, Daily, # 180 tablet, 0 Refills, [facility] #05153, 173, cm, 06/21/21 13:45:00 EDT, Height, 91.6, kg, 06/05/21 22:06:00 EDT, Dry Weight Start Date: 06/28/21 Status: Ordered FeroSul 325 mg oral tablet 1 tablet, By Mouth, Daily, # 100 tablet, 1 Refills, Maintenance, 07/23/20 12:40:00 EDT, [facility] #[id number], 174, cm, 06/10/20 10:35:00 EDT, Height, 90.2, [...] tablet, 1 Refills, Maintenance, 12/16/20 14:26:00 EDT, [facility] #[id number], dose increased from 5 mg, 174, cm, 12/16/20 14:06:00 EDT, Height, 90.2, kg, 04/10/19 10:04:00 EST, Dry Weight Start Date: 12/16/20 Stop Date: 06/14/21 Status: Ordered lidocaine 5% topical film 1 patch, Topically, Daily, PRN Pain , Mild, remove after 12 hours, # 13 each, 0 Refills, Maintenance, 06/05/21 21:29:00 EDT, Film, [facility] #[id number], Partial fill upon patient request if the prescription is for a schedule II opioid drug., 1... Start Date: 06/05/21 Status: Ordered losartan 100 mg oral tablet 1 tablet = 100 mg, By Mouth, Daily, # 90 tablet, 1 Refills, Maintenance, 12/16/20 14:26:00 EDT, Tablet, [facility] #44026, change from losartan-hctz, 174, cm, 12/16/20 14:06:00 EDT, Height,90.2, kg, 04/10/19 10:04:00 EST, Dry Weight Start Date: 12/16/20 Status: Ordered Metoprolol Succinate ER 50 mg oral tablet, extended release 1 tablet = 50 mg, By Mouth, Daily, # 90 tablet, 1 Refills, Maintenance, 12/16/20 14:26:00 EDT, ER Tablet, [facility] #80719, 174, cm, 12/16/20 14:06:00 EDT, Height, 90.2, [...]
--- OUTSIDE RECORDS SUMMARY | 2023-04-04 06:06 | XMS_ITS | Continuity of Care Document ---
Author Name Unknown Organization [facility] Address [address] [place] [address]- Care Team Providers Care Wildlife Protector Name Role Phone Roseline Ortega MD Primary Care Physician Encounter [facility] Date(s): 08/23/22 - 12/07/22 [facility] [address] [place], [place] [address] Discharge Disposition: A-D/C Home Attending Physician: Jack Lorenzo DO Admitting Physician: Jack Lorenzo DO Referring Physician: Eder Flores DO Allergies, Adverse Reactions, Alerts Substance Reaction Severity Status metFORMIN myalgia Active Immunizations Given and Recorded Vaccine Date Status Refusal Reason [id number] 12y+ bivalent booster vax 02/16/22 Recorded SARS-CoV-2 [...] pt. tolerated inj. without complications....[place] 2Result Comment: [facility] 62844-466-49 Pt tolerated vaccine without incident...NH 3Result Comment: [id number] 4Result Comment: [12/20/2017] [facility] [id number] 5Result Comment: [12/18/2012] given w/o incidense...mh 6Admin Note: at work 7Result Comment: [facility] [address]-6 Pt tolerated vaccine without incident...NH 8Admin Note: GIVEN W/O INCEDENT Medications albuterol CFC free 90 mcg/inh inhalation aerosol 2, puffs, Inhalation, Every 6 hours, PRN, # 8.5 Gm, Refills 0, Tot. Refills 0, Maintenance, 12/06/22 15:50:00 EDT, Route to Pharmacy Electronically, [id number], [facility] #[id number], 173, cm, 08/16/22 8:14:00 EDT, [place]... Start Date: 12/06/22 Stop Date: 01/05/23 Status: Ordered aspirin 81 mg oral tablet 1 tablet = 81 mg, By Mouth, Daily, # 30 tablet, 0 Refills, Maintenance, 05/20/14 12:11:28, Tablet Start Date: 05/20/14 Status: Ordered atorvastatin 20 mg oral tablet 1 tablet, By Mouth, Daily, # 90 tablet, 0 Refills, 12/06/22 15:50:00 EDT, [facility] #[id number], 173, cm, 08/16/22 8:14:00 EDT, Height, 86, kg, 08/14/22 3:21:00 EDT, Dry Weight Start Date: 12/06/22 Status: Ordered chlorthalidone 50 mg oral tablet 2 tablet, By Mouth, Daily, # 180 tablet, 0 Refills, [facility] #[id number], 173, cm, 06/21/21 13:45:00 EDT, Height, 91.6, kg, 06/05/21 22:06:00 EDT, Dry Weight Start Date: 09/29/21 Status: Ordered FeroSul 325 mg oral tablet 1 tablet, By Mouth, Daily, # 100 tablet, 1 Refills, Maintenance, 07/23/20 12:40:00 EDT, [facility] #65543, 174, cm, 06/10/20 10:35:00 EDT, Height, 90.2, [...] Gm, 0 Refills, Maintenance, 03/10/22 15:48:00 EST, [place], [facility] #[id number], Partial fill upon patient request if the [...] tablet, 1 Refills, Maintenance, 09/26/22 11:55:00 EDT, [facility] #54612, dose increased from 5 mg, 173, cm, 08/16/22 8:14:00 EDT, Height, 86, kg, 08/14/22 3:21:00 EDT, Dry Weight Start Date: 09/26/22 Stop Date: 03/25/23 Status: Ordered lidocaine 5% topical film 1 patch, Topically, Daily, PRN Pain , Mild, remove after 12 hours, # 13 each, 0 Refills, Maintenance, 06/05/21 21:29:00 EDT, Film, [facility] #[id number], Partial fill upon patient request if the prescription is for a schedule II opioid drug., 1... Start Date: 06/05/21 Status: Ordered losartan 100 mg oral tablet 1 tablet, By Mouth, Daily, # 90 tablet, 1 Refills, Maintenance, 08/08/22 20:35:00 EDT, [facility] #79183, 173, cm, 07/26/22 9:01:00 EDT, Height, 91.6, kg, 06/05/21 22:06:00 EDT, Dry Weight Start Date: 08/08/22 Status: Ordered Metoprolol Succinate ER 50 mg oral tablet, extended release 1 tablet = 50 mg, By Mouth, Daily, # 90 tablet, 0 Refills, Maintenance, 12/06/22 15:50:00 EDT, ER Tablet, [facility] #65344, 173, cm, 08/16/22 8:14:00 EDT, Height, 86, kg, 08/14/22 3:21:00 EDT, Dry Weight Start Date: 12/06/22 Stop Date: 03/06/23 Status: Ordered Vitamin B12 1000 mcg oral [...] Primary Care Member Role: PCP Address: Address: [address] [place] [address] Adult [place] [address]- Care Team Related Persons Name: DELIA STOLL Address: [place] [address] Name: LYNNE STOLL Address: [address] [address]
--- OUTSIDE RECORDS SUMMARY | 2023-04-04 06:06 | XMS_ITS | Continuity of Care Document ---
Author Name Unknown Organization [facility] Address [address] [place] [address]- Care Team Providers Care Laborer Bituminous Paving Name Role Phone Roseline Ortega MD Primary Care Physician Encounter [facility] Date(s): 04/07/22 - 07/06/22 [facility] [address] [place] [address]- Attending Physician: Roseline Ortega MD Allergies, Adverse Reactions, Alerts Substance Reaction Severity Status metFORMIN myalgia Active Immunizations Given and Recorded Vaccine Date Status Refusal Reason [id number] 12y+ bivalent booster vax 02/16/22 Recorded SARS-CoV-2 [...] pt. tolerated inj. without complications....CO 2Result Comment: [facility] 62361-381-73 Pt tolerated vaccine without incident...NH 3Result Comment: [id number] 4Result Comment: [12/20/2017] [facility] 49795-131-12 5Result Comment: [12/18/2012] given w/o incidense...mh 6Admin Note: at work 7Result Comment: [facility] [address]-6 Pt tolerated vaccine without incident...NH 8Admin Note: GIVEN W/O INCEDENT Medications albuterol CFC free 90 mcg/inh inhalation aerosol 2, puffs, Inhalation, Every 6 hours, PRN, # 8.5 Gm, Refills 0, Tot. Refills 0, Maintenance, 03/10/22 15:49:00 EST, Route to Pharmacy Electronically, [id number], [facility] #[id number], 173, cm, 03/10/22 15:20:00 EST, Hei... Start Date: 03/10/22 Stop Date: 04/09/22 Status: Ordered aspirin 81 mg oral tablet 1 tablet = 81 mg, By Mouth, Daily, # 30 tablet, 0 Refills, Maintenance, 05/20/14 12:11:28, Tablet Start Date: 05/20/14 Status: Ordered atorvastatin 20 mg oral tablet 1 tablet, By Mouth, Daily, # 90 tablet, 1 Refills, 10/11/21 10:22:00 EDT, [facility] #[id number], 173, cm, 10/11/21 10:04:00 EDT, Height, 91.6, kg, 06/05/21 22:06:00 EDT, Dry Weight Start Date: 10/11/21 Status: Ordered chlorthalidone 50 mg oral tablet 2 tablet, By Mouth, Daily, # 180 tablet, 0 Refills, [facility] #[id number], 173, cm, 06/21/21 13:45:00 EDT, Height, 91.6, kg, 06/05/21 22:06:00 EDT, Dry Weight Start Date: 09/29/21 Status: Ordered FeroSul 325 mg oral tablet 1 tablet, By Mouth, Daily, # 100 tablet, 1 Refills, Maintenance, 07/23/20 12:40:00 EDT, [facility] #[id number], 174, cm, 06/10/20 10:35:00 EDT, Height, 90.2, [...] Gm, 0 Refills, Maintenance, 03/10/22 15:48:00 EST, [place], [facility] #51972, Partial fill upon patient request if the [...] tablet, 1 Refills, Maintenance, 10/11/21 10:22:00 EDT, [facility] #[id number], dose increased from 5 mg, 173, cm, 10/11/21 10:04:00 EDT, Height, 91.6, kg, 06/05/21 22:06:00 EDT, Dry Weight Start Date: 10/11/21 Stop Date: 04/09/22 Status: Ordered lidocaine 5% topical film 1 patch, Topically, Daily, PRN Pain , Mild, remove after 12 hours, # 13 each, 0 Refills, Maintenance, 06/05/21 21:29:00 EDT, [place], [facility] #[id number], Partial fill upon patient request if the prescription is for a schedule II opioid drug., 1... Start Date: 06/05/21 Status: Ordered losartan 100 mg oral tablet 1 tablet, By Mouth, Daily, # 90 tablet, 1 Refills, Maintenance, 02/07/22 7:41:00 EST, [facility] #27715, 173, cm, 10/25/21 15:43:00 EDT, Height, 91.6, kg, 06/05/21 22:06:00 EDT, Dry Weight Start Date: 02/07/22 Status: Ordered Metoprolol Succinate ER 50 mg oral tablet, extended release 1 tablet = 50 mg, By Mouth, Daily, # 90 tablet, 1 Refills, Maintenance, 10/11/21 10:22:00 EDT, ER Tablet, [facility] #56706, 173, cm, 10/11/21 10:04:00 EDT, Height, 91.6, [...] Personnel Name: Jordan STOCKTON, Roseline Frey Position: [facility] Primary Care Physician Member Role: PCP Address: Address: [address] [place] [address] Adult & [place] [address]- Care Team Related Persons Name: DELIA STOLL Address: [place] [address] Name: LYNNE STOLL Address: home [address] [place] [id number]
--- OUTSIDE RECORDS SUMMARY | 2023-04-04 06:06 | XMS_ITS | Continuity of Care Document ---
Author Name Unknown Organization [facility] Address [address] [place] [address]- Care Team Providers Care Clinical Information Systems Director Name Role Phone Jordan STOCKTON, Roseline Frey Primary Care Physician [phone] Encounter [facility] Date(s): 11/12/19 - 12/12/19 [facility] [address] [place] [address]- [facility] Allergies, Adverse Reactions, Alerts Substance Reaction Severity Status metFORMIN myalgia Active Immunizations Given and Recorded Vaccine Date Status Refusal Reason influenza virus vaccine, inactivated 1 12/12/19 Gi leandra influenza virus vaccine, inactivated 2 02/06/19 Gi leandra influenza virus vaccine, inactivated 3 12/20/17 Gi leanrda influenza virus vaccine, inactivated 12/17/15 Give n influenza virus vaccine, inactivated 01/01/14 Give n influenza virus vaccine, inactivated 4 12/18/12 Gi leandra influenza virus vaccine, inactivated 5 02/09/12 Gi leandra influenza virus vaccine, inactivated 12/13/10 Give n pneumococcal 13-valent vaccine 12/17/15 Given Pneumococcal Vaccine (oldterm) 07/26/10 Given Tetanus-Diphth Toxoids, Adult (oldterm) 6 07/26/10 Given 1Result Comment: [facility] 44877-876-01 Pt tolerated vaccine without incident...NH 2Result Comment: [id number] 3Result Comment: [12/20/2017] [facility] 73706-960-91 4Result Comment: [12/18/2012] given w/o incidense...mh 5Admin [...] tablet, 0 Refills, Maintenance, 11/12/19 14:03:00 EDT, [facility] #[id number], 174, cm, 10/24/19 20:33:00 EDT, Height, 90.2, [...] tablet, 3 Refills, Maintenance, 04/10/19 10:26:00 EST, [facility] #[id number], dose increased from 5 mg, 172, cm, 04/10/19 10:04:00 EST, Height, 90.2, kg, 04/10/19 10:04:00 EST, Dry Weight Start Date: 04/10/19 Stop Date: 04/04/20 Status: Ordered losartan 100 mg oral tablet 1 tablet = 100 mg, By Mouth, Daily, # 90 tablet, 0 Refills, Maintenance, 11/12/19 11:16:00 EDT, Tablet, [facility] #[id number], change from losartan-hctz, 174, cm, 10/24/19 20:33:00 EDT, Height,90.2, kg, 04/10/19 10:04:00 EST, Dry Weight Start Date: 11/12/19 Status: Ordered Metoprolol Succinate ER 50 mg oral tablet, extended release 1 tablet = 50 mg, By Mouth, Daily, # 90 tablet, 0 Refills, Maintenance, 11/12/19 11:16:00 EDT, ER Tablet, [facility] #[id number], 174, cm, 10/24/19 20:33:00 EDT, Height, 90.2, kg, 04/10/19 10:04:00 EST, Dry Weight Start Date: 11/12/19 Stop Date: 02/10/20 Status: Ordered NIFEdipine 60 mg oral tablet, extended release 60 mg, 1, tablet, By Mouth, Daily, # 90 tablet, Refills 0, Tot. Refills 0, Maintenance, 06/12/19 10:13:00 EDT, Route to Pharmacy Electronically, [facility] #[id number], 172, cm, 04/10/19 10:04:00 EST, Height, 90.2, kg, 04/10/19 10:04:00 EST, Dry... Start Date: 06/12/19 Stop Date: 09/10/19 Status: Ordered simvastatin 40 mg oral tablet 40 mg, 1, tablet, By Mouth, Daily at bedtime, # 90 tablet, Refills 0, Tot. Refills 0, Maintenance, 11/12/19 11:16:00 EDT, Route to Pharmacy Electronically, [facility] #[id number], 174, cm, 10/24/19 20:33:00 EDT, Height, 90.2, kg, 04/10/19 10:04:0... Start Date: 11/12/19 Status: Ordered Vitamin B12 1000 mcg oral tablet 1 tablet = 1,000 mcg, By Mouth, Daily, sublingual, 0 Refills, Maintenance, 05/30/19 10:26:09 EDT Start Date: 08/01/18 Status: Ordered [...]
--- OUTSIDE RECORDS SUMMARY | 2023-04-04 06:06 | XMS_ITS | Continuity of Care Document ---
Author Name Unknown Organization [facility] Address [address] [place] [address]- Care Team Providers Care Custodian Manager Name Role Phone Roseline Ortega MD Primary Care Physician En[place] [facility] [place] Date(s): 06/21/21 - 06/28/21 [facility] [address] [place], [place] [address] Attending Physician: Roseline Ortega MD [...] pt. tolerated inj. without complications....[place] 2Result Comment: [facility] 36247-410-67 Pt tolerated vaccine without incident...NH 3Result Comment: [id number] 4Result Comment: [12/20/2017] [facility] 32513-879-75 5Result Comment: [12/18/2012] given w/o incidense...mh 6Admin Note: at work 7Result Comment: [facility] [address]-6 Pt tolerated vaccine without incident...NH 8Admin Note: GIVEN W/O INCEDENT Medications aspirin 81 mg oral tablet 1 tablet = 81 mg, By Mouth, Daily, # 30 tablet, 0 Refills, Maintenance, 05/20/14 12:11:28, Tablet Start Date: 05/20/14 Status: Ordered atorvastatin 20 mg oral tablet 1 tablet, By Mouth, Daily, # 90 tablet, 1 Refills, [facility] #[id number], 173, cm, 06/21/21 13:45:00 EDT, Height, 91.6, kg, 06/05/21 22:06:00 EDT, Dry Weight Start Date: 06/28/21 Status: Ordered chlorthalidone 50 mg oral tablet 2 tablet, By Mouth, Daily, # 180 tablet, 0 Refills, [facility] #[id number], 173, cm, 06/21/21 13:45:00 EDT, Height, 91.6, kg, 06/05/21 22:06:00 EDT, Dry Weight Start Date: 06/28/21 Status: Ordered FeroSul 325 mg oral tablet 1 tablet, By Mouth, Daily, # 100 tablet, 1 Refills, Maintenance, 07/23/20 12:40:00 EDT, [facility] #[id number], 174, cm, 06/10/20 10:35:00 EDT, Height, 90.2, [...] tablet, 1 Refills, Maintenance, 12/16/20 14:26:00 EDT, [facility] #[id number], dose increased from 5 mg, 174, cm, 12/16/20 14:06:00 EDT, Height, 90.2, kg, 04/10/19 10:04:00 EST, Dry Weight Start Date: 12/16/20 Stop Date: 06/14/21 Status: Ordered lidocaine 5% topical film 1 patch, Topically, Daily, PRN Pain , Mild, remove after 12 hours, # 13 each, 0 Refills, Maintenance, 06/05/21 21:29:00 EDT, Film, [facility] #[id number], Partial fill upon patient request if the prescription is for a schedule II opioid drug., 1... Start Date: 06/05/21 Status: Ordered losartan 100 mg oral tablet 1 tablet = 100 mg, By Mouth, Daily, # 90 tablet, 1 Refills, Maintenance, 12/16/20 14:26:00 EDT, Tablet, [facility] #[id number], change from losartan-hctz, 174, cm, 12/16/20 14:06:00 EDT, Height,90.2, kg, 04/10/19 10:04:00 EST, Dry Weight Start Date: 12/16/20 Status: Ordered Metoprolol Succinate ER 50 mg oral tablet, extended release 1 tablet = 50 mg, By Mouth, Daily, # 90 tablet, 1 Refills, Maintenance, 12/16/20 14:26:00 EDT, ER Tablet, [facility] #[id number], 174, cm, 12/16/20 14:06:00 EDT, Height, 90.2, [...] [Reference Range]: 1 2 Height 173 cm (06/21/21 1:45 PM) 173 cm (06/21/21 1:43 PM) Weight 88.8 kg (06/21/21 1:43 PM) Oxygen Saturation [94-100 %] 97 % (06/21/21 1:43 PM) Pulse Rate [55-90 bpm] 61 bpm (06/21/21 1:43 PM) Body Mass Index [18.5-24.99] 29.67 *H* (06/21/21 1:43 PM) Blood Pressure [90-138/55-84 mm Hg] 162/ 72mm Hg *H* (06/21/21 1:45 PM) 172/72mm Hg *H* (06/21/21 1:43 PM) Mode of Delivery (Oxygen) Room air (06/21/21 1:43 PM) Blood pressure sites Arm, left (06/21/21 1:45 PM) Arm, left (06/21/21 1:43 PM) Weight Obtained Via Standing scale (06/21/21 1:43 PM) Social History Social History Type Response Smoking Status Never smoker; Tobacc o user in household: No entered on: 07/16/13 Sex
--- OUTSIDE RECORDS SUMMARY | 2023-04-04 06:06 | XMS_ITS | Continuity of Care Document ---
Author Name Unknown Organization [facility] Address [address] [place] [address]- Care Team Providers Care Leather Goods Sales Representative Name Role Phone Roseline Ortega MD Primary Care Physician Encounter [facility] [place] Date(s): 06/03/20 - 06/10/20 [facility] [address] [place], [place] [address] Attending Physician: Roseline Ortega MD Allergies, [...] Adult (oldterm) 7 07/26/10 Given 1Result Comment: [facility] [address]-5 Pt tolerated vaccine without incident...NH 2Result Comment: [facility] 72986-108-20 Pt tolerated vaccine without incident...NH 3Result Comment: [id number] 4Result Comment: [12/20/2017] [facility] [id number] 5Result Comment: [12/18/2012] given w/o incidense...mh 6Admin [...] 0 Refills, Maintenance, 06/10/20 10:45:00 EDT, Tablet, [facility] #[id number], simvastatin discontinued, lipids not at goal, 174, cm, 06/10/20 10:35:00 EDT, Height, 90.2, kg, 04/10/19 10:04:00 EST,... Start Date: 06/10/20 Stop Date: 09/08/20 Status: Ordered chlorthalidone 50 mg oral tablet 2 tablet = 100 mg, By Mouth, Daily, # 180 tablet, 3 Refills, Maintenance, 02/25/20 12:03:00 EST, Tablet, [facility] #[id number], dose increased from 50 mg daily, 174, cm, 02/25/20 11:26:00 EST, Height, 90.2, kg, 04/10/19 10:04:00 EST, Dry Weight Start Date: 02/25/20 Stop Date: 02/19/21 Status: Ordered FeroSul 325 mg oral tablet 1 tablet, By Mouth, Daily, # 100 tablet, 0 Refills, Maintenance, 11/12/19 14:03:00 EDT, [facility] #[id number], 174, cm, 10/24/19 20:33:00 EDT, Height, 90.2, [...] tablet, 3 Refills, Maintenance, 04/10/19 10:26:00 EST, [facility] #[id number], dose increased from 5 mg, 172, cm, 04/10/19 10:04:00 EST, Height, 90.2, kg, 04/10/19 10:04:00 EST, Dry Weight Start Date: 04/10/19 Stop Date: 04/04/20 Status: Ordered losartan 100 mg oral tablet 1 tablet = 100 mg, By Mouth, Daily, # 90 tablet, 0 Refills, Maintenance, 02/16/20 7:38:00 EST, Tablet, [facility] #[id number], change from losartan- hctz, 174, cm, 01/21/20 10:35:00 EST, Height, 90.2, kg, 04/10/19 10:04:00 EST, Dry Weight Start Date: 02/16/20 Status: Ordered Metoprolol Succinate ER 50 mg oral tablet, extended release 1 tablet = 50 mg, By Mouth, Daily, # 90 tablet, 0 Refills, Maintenance, 02/16/20 7:38:00 EST, ER Tablet, [facility] #[id number], 174, cm, 01/21/20 10:35:00 EST, Height, 90.2, [...] [Reference Range]: 1 2 Height 174 cm (06/03/20 2:05 PM) 174 cm (06/03/20 1:54 PM) Weight 88.3 kg (06/03/20 1:54 PM) Oxygen Saturation [94-100 %] 98 % (06/03/20 1:54 PM) Pulse Rate [55-90 bpm] 66 bpm (06/03/20 1:54 PM) Body Mass Index [18.5-24.99] 29.17 *H* (06/03/20 1:54 PM) Blood Pressure [90-138/55-84 mm Hg] 166/ 80mm Hg *H* (06/03/20 2:05 PM) 168/80mm Hg *H* (06/03/20 1:54 PM) Temperature [96.8-100.4 DegF] 97.2 DegF (06/03/20 1:54 PM) Mode of Delivery (Oxygen) Room air (06/03/20 1:54 PM) Blood pressure sites Arm, left (06/03/20 2:05 PM) Arm, left (06/03/20 1:54 PM) Temperature Route Temporal (06/03/20 1:54 PM) Weight Obtained Via Standing scale (06/03/20 1:54 PM) Social History Social History Type Response Smoking Status Never smoker; Tobacc o user in household: No entered on: 07/16/13 Sex
--- OUTSIDE RECORDS SUMMARY | 2023-04-04 06:06 | XMS_ITS | Continuity of Care Document ---
Author Name Unknown Organization [facility] Address [address] [place] [address]- Care Team Providers Care Film Washer Name Role Phone Jordan STOCKTON, Roseline Frey Primary Care Physician [phone] [facility] [place] Date(s): 05/17/21 - 06/16/21 [facility] [address] [place], [place] [address] Attending Physician: Alisha Mosre Admitting Physician: Alisha Moser Referring Physician: AdmtrAlisha Allergies, Adverse Reactions, Alerts Substance Reaction Severity [...] pt. tolerated inj. without complications....[place] 2Result Comment: [facility] 33742-790-29 Pt tolerated vaccine without incident...NH 3Result Comment: [id number] 4Result Comment: [12/20/2017] [facility] 86138-243-00 5Result Comment: [12/18/2012] given w/o incidense...mh 6Admin Note: at work 7Result Comment: [facility] [address]-4 Pt tolerated vaccine without incident...NH 8Admin Note: GIVEN W/O INCEDENT Medications aspirin 81 mg oral tablet 1 tablet = 81 mg, By Mouth, Daily, # 30 tablet, 0 Refills, Maintenance, 05/20/14 12:11:28, Tablet Start Date: 05/20/14 Status: Ordered atorvastatin 20 mg oral tablet 1 tablet = 20 mg, By Mouth, Daily, # 90 tablet, 1 Refills, Maintenance, 12/16/20 14:26:00 EDT, Tablet, [facility] #[id number], simvastatin discontinued, lipids not at goal, 174, cm, 12/16/20 14:06:00 EDT, Height, 90.2, kg, 04/10/19 10:04:00 EST,... Start Date: 12/16/20 Stop Date: 06/14/21 Status: Ordered chlorthalidone 50 mg oral tablet 2 tablet = 100 mg, By Mouth, Daily, # 180 tablet, 1 Refills, Maintenance, 12/16/20 14:26:00 EDT, Tablet, [facility] #[id number], dose increased from 50 mg daily, 174, cm, 12/16/20 14:06:00 EDT, Height, 90.2, kg, 04/10/19 10:04:00 EST, Dry Weight Start Date: 12/16/20 Stop Date: 06/14/21 Status: Ordered FeroSul 325 mg oral tablet 1 tablet, By Mouth, Daily, # 100 tablet, 1 Refills, Maintenance, 07/23/20 12:40:00 EDT, [facility] #[id number], 174, cm, 06/10/20 10:35:00 EDT, Height, 90.2, [...] tablet, 1 Refills, Maintenance, 12/16/20 14:26:00 EDT, [facility] #[id number], dose increased from 5 mg, 174, cm, 12/16/20 14:06:00 EDT, Height, 90.2, kg, 04/10/19 10:04:00 EST, Dry Weight Start Date: 12/16/20 Stop Date: 06/14/21 Status: Ordered lidocaine 5% topical film 1 patch, Topically, Daily, PRN Pain , Mild, remove after 12 hours, # 13 each, 0 Refills, Maintenance, 06/05/21 21:29:00 EDT, Film, [facility] #[id number], Partial fill upon patient request if the prescription is for a schedule II opioid drug., 1... Start Date: 06/05/21 Status: Ordered losartan 100 mg oral tablet 1 tablet = 100 mg, By Mouth, Daily, # 90 tablet, 1 Refills, Maintenance, 12/16/20 14:26:00 EDT, Tablet, [facility] #[id number], change from losartan-hctz, 174, cm, 12/16/20 14:06:00 EDT, Height,90.2, kg, 04/10/19 10:04:00 EST, Dry Weight Start Date: 12/16/20 Status: Ordered Metoprolol Succinate ER 50 mg oral tablet, extended release 1 tablet = 50 mg, By Mouth, Daily, # 90 tablet, 1 Refills, Maintenance, 12/16/20 14:26:00 EDT, ER Tablet, [facility] #13558, 174, cm, 12/16/20 14:06:00 EDT, Height, 90.2, [...] type II(Confirmed) Active Hyperlipidemia(Confirmed) Active Hypertension(Confirmed) Active Obese class I(Confirmed) Active Social History Social History Type Response Smoking Status Never smoker; Tobacc o user in household: No entered on: 07/16/13 Sex
--- OUTSIDE RECORDS SUMMARY | 2023-04-04 06:06 | XMS_ITS | Continuity of Care Document ---
Author Name Unknown Organization [facility] ter Address [address] [place] [address]- Care Team Providers Care Baker Name Role Phone Roseline Ortega MD Primary Care Physician [phone] Encounter [facility] [place] Date(s): 10/18/20 - 10/18/[address] [address]- Encounter Diagnosis Degenerative arthritis(Final) - 10/18/20 Knee meniscus pain(Final) - 10/18/20 Discharge Disposition: A-D/C Home Attending Physician: Christy Levine MD Admitting Physician: Christy Levine MD Referring Physician: Not on Staff, Referring [...] Adult (oldterm) 7 07/26/10 Given 1Result Comment: [facility] [address]-1 Pt tolerated vaccine without incident...NH 2Result Comment: [facility] 72775-404-30 Pt tolerated vaccine without incident...NH 3Result Comment: [id number] 4Result Comment: [12/20/2017] [facility] 21929-558-09 5Result Comment: [12/18/2012] given w/o incidense...mh 6Admin [...] 1 Refills, Maintenance, 09/10/20 15:34:00 EDT, Tablet, [facility] #63776, simvastatin discontinued, lipids not at goal, 174, cm, 06/10/20 10:35:00 EDT, Height, 90.2, kg, 04/10/19 10:04:00 EST,... Start Date: 09/10/20 Stop Date: 03/09/21 Status: Ordered chlorthalidone 50 mg oral tablet 2 tablet = 100 mg, By Mouth, Daily, # 180 tablet, 3 Refills, Maintenance, 02/25/20 12:03:00 EST, Tablet, [facility] #[id number], dose increased from 50 mg daily, 174, cm, 02/25/20 11:26:00 EST, Height, 90.2, kg, 04/10/19 10:04:00 EST, Dry Weight Start Date: 02/25/20 Stop Date: 02/19/21 Status: Ordered FeroSul 325 mg oral tablet 1 tablet, By Mouth, Daily, # 100 tablet, 1 Refills, Maintenance, 07/23/20 12:40:00 EDT, [facility] #[id number], 174, cm, 06/10/20 10:35:00 EDT, Height, 90.2, [...] tablet, 1 Refills, Maintenance, 07/23/20 12:39:00 EDT, [facility] #[id number], dose increased from 5 mg, 174, cm, 06/10/20 10:35:00 EDT, Height, 90.2, kg, 04/10/19 10:04:00 EST, Dry Weight Start Date: 07/23/20 Stop Date: 01/19/21 Status: Ordered losartan 100 mg oral tablet 1 tablet = 100 mg, By Mouth, Daily, # 90 tablet, 0 Refills, Maintenance, 02/16/20 7:38:00 EST, Tablet, [facility] #[id number], change from losartan- hctz, 174, cm, 01/21/20 10:35:00 EST, Height, 90.2, kg, 04/10/19 10:04:00 EST, Dry Weight Start Date: 02/16/20 Status: Ordered Metoprolol Succinate ER 50 mg oral tablet, extended release 1 tablet = 50 mg, By Mouth, Daily, # 90 tablet, 1 Refills, Maintenance, 07/23/20 12:39:00 EDT, ER Tablet, [facility] #[id number], 174, cm, 06/10/20 10:35:00 EDT, Height, 90.2, [...] Exam Date Time Procedure Performing Provider Status 10/18/20 3:40 PM Knee 1 or 2 Views Right Woods Lizzy ar; Auth (Verified) Notes: (Knee 1 or 2 Views Right) Reason For Exam: with Pain;Pain RESULT: Knee 1 or 2 Views Right Knee 1 or 2 Views Right Reason: Pain; Clinical concern for fracture. COMPARISON: None. FINDINGS: No fractures, no focal osseous lesions. There is moderate tricompartmental joint space narrowing, marginal osteophytes in the least 2 ossified intra-articular loose bodies measuring up to 1.5 cm maximal dimension. Trace joint effusion. IMPRESSION: Moderate degenerative changes. No acute abnormality. WSN: [id number] Ordering Physician: Fredy Ellington Dictated By: Crow Gonzalez MD Dictated Date/Time: 10/18/20 3:49 pm Reviewed By: Crow Gonzalez MD Signed By: Crow Gonzalez MD Signed Date/Time: 10/18/20 3:49 pm Transcribed By: JHOAN Transcribed Date/Time: 10/18/20 3:48 pm Vital Signs Most recent to oldest [Reference Range]: 1 Oxygen Saturation [94-100 %] 100 % (10/18/20 4:16 PM) Pulse Rate [55-90 bpm] 62 bpm (10/18/20 4:16 PM) Blood Pressure [90-138/55-84 mm Hg] 157/ 111mm Hg *H* (10/18/20 4:16 PM) Respiratory Rate [16-30 br/min] 19 br/mi n (10/18/20 4:16 PM) Temperature [96.8-100.4 DegF] 98.7 DegF (10/18/20 4:16 PM) Mode of Delivery (Oxygen) Room air (10/18/20 4:16 PM) Blood pressure sites Arm, right (10/18/20 4:16 PM) Temperature Route Oral (10/18/20 4:16 PM) Social History Social History Type Response Smoking Status Never smoker; Tobacc o user in household: No entered on: 07/16/13 Sex
--- OUTSIDE RECORDS SUMMARY | 2023-04-04 06:07 | XMS_ITS | Continuity of Care Document ---
Author Name Unknown Organization [facility] Address [address] [place] [address]- Care Team Providers Care Derrick Man Name Role Phone Roseline Ortega MD Primary Care Physician Encounter [facility] [place] Date(s): 09/26/22 - 10/03/22 [facility] [address] [place], [place] [address] Encounter Diagnosis Invasive ductal carcinoma of breast(Discharge Diagnosis) - 09/26/22 Diabetes mellitus type II(Discharge Diagnosis) - 09/26/22 Hypertension(Discharge Diagnosis) - 09/26/22 Hyperlipidemia(Discharge Diagnosis) - 09/26/22 Attending Physician: Roseline Ortega MD Allergies, Adverse Reactions, Alerts Substance Reaction Severity Status metFORMIN myalgia Active Immunizations Given and Recorded Vaccine Date Status Refusal Reason [id number] 12y+ bivalent booster vax 02/16/22 Recorded SARS-CoV-2 [...] without complications....[place] 2Result Comment: [facility] 99039-436-95 Pt tolerated vaccine without incident...NH 3Result Comment: [id number] 4Result Comment: [12/20/2017] [facility] 20596-891-79 5Result Comment: [12/18/2012] given w/o incidense...mh 6Admin Note: at work 7Result Comment: [facility] [address]-2 Pt tolerated vaccine without incident...NH 8Admin Note: GIVEN W/O INCEDENT Medications albuterol CFC free 90 mcg/inh inhalation aerosol 2, puffs, Inhalation, Every 6 hours, PRN, # 8.5 Gm, Refills 0, Tot. Refills 0, Maintenance, 03/10/22 15:49:00 EST, Route to Pharmacy Electronically, [id number], [facility] #[id number], 173, cm, 03/10/22 15:20:00 EST, Hei... Start Date: 03/10/22 Stop Date: 04/09/22 Status: Ordered aspirin 81 mg oral tablet 1 tablet = 81 mg, By Mouth, Daily, # 30 tablet, 0 Refills, Maintenance, 05/20/14 12:11:28, Tablet Start Date: 05/20/14 Status: Ordered atorvastatin 20 mg oral tablet 1 tablet, By Mouth, Daily, # 90 tablet, 1 Refills, 09/26/22 11:55:00 EDT, [facility] #[id number], 173, cm, 08/16/22 8:14:00 EDT, Height, 86, kg, 08/14/22 3:21:00 EDT, Dry Weight Start Date: 09/26/22 Status: Ordered chlorthalidone 50 mg oral tablet 2 tablet, By Mouth, Daily, # 180 tablet, 0 Refills, [facility] #[id number], 173, cm, 06/21/21 13:45:00 EDT, Height, 91.6, kg, 06/05/21 22:06:00 EDT, Dry Weight Start Date: 09/29/21 Status: Ordered FeroSul 325 mg oral tablet 1 tablet, By Mouth, Daily, # 100 tablet, 1 Refills, Maintenance, 07/23/20 12:40:00 EDT, [facility] #[id number], 174, cm, 06/10/20 10:35:00 EDT, Height, 90.2, [...] Gm, 0 Refills, Maintenance, 03/10/22 15:48:00 EST, [place], [facility] #[id number], Partial fill upon patient request if the [...] tablet, 1 Refills, Maintenance, 09/26/22 11:55:00 EDT, [facility] #06403, dose increased from 5 mg, 173, cm, 08/16/22 8:14:00 EDT, Height, 86, kg, 08/14/22 3:21:00 EDT, Dry Weight Start Date: 09/26/22 Stop Date: 03/25/23 Status: Ordered lidocaine 5% topical film 1 patch, Topically, Daily, PRN Pain , Mild, remove after 12 hours, # 13 each, 0 Refills, Maintenance, 06/05/21 21:29:00 EDT, Film, [facility] #[id number], Partial fill upon patient request if the prescription is for a schedule II opioid drug., 1... Start Date: 06/05/21 Status: Ordered losartan 100 mg oral tablet 1 tablet, By Mouth, Daily, # 90 tablet, 1 Refills, Maintenance, 08/08/22 20:35:00 EDT, [facility] #[id number], 173, cm, 07/26/22 9:01:00 EDT, Height, 91.6, kg, 06/05/21 22:06:00 EDT, Dry Weight Start Date: 08/08/22 Status: Ordered Metoprolol Succinate ER 50 mg oral tablet, extended release 1 tablet = 50 mg, By Mouth, Daily, # 90 tablet, 1 Refills, Maintenance, 09/26/22 11:55:00 EDT, ER Tablet, [facility] #[id number], 173, cm, 08/16/22 8:14:00 EDT, Height, 86, [...] Active Hyperlipidemia Confirmed Active Hypertension Confirmed Active Diagnosis Diagnosis Type Effective Dates Health Status Clinical Service Informant Invasive ductal carcinoma of breast Discharge Diagnosis 09/26/22 Diabetes mellitus type II Discharge Diagnosis 09/26/22 Hypertension Discharge Diagnosis 09/26/22 Hyperlipidemia Discharge Diagnosis 09/26/22 Social History Social History Type Response Smoking Status Never smoker; Tobacc o user in household: No entered on: 07/16/13 Sex Patient Care team information Care Team Personnel Name: Jordan STOCKTON, Roseline Frey Position: [facility] Physician - Primary Care Member Role: PCP Address: Address: [facility] [facility] [place] [address]- Care Team Related Persons Name: DELIA STOLL Address: [place] [address] Name: LYNNE STOLL Address: [address] [address]
--- OUTSIDE RECORDS SUMMARY | 2023-04-04 06:07 | XMS_ITS | Continuity of Care Document ---
Author Name Unknown Organization [facility] Address [address] [place] [address]- Care Team Providers Care Clerical Stock Inspector Name Role Phone Roseline Ortega MD Primary Care Physician [phone] Encounter [facility] Date(s): 02/02/23 - 03/04/23 [facility] [address] [place], [place] [address] Allergies, Adverse Reactions, Alerts Substance Reaction Severity Status metFORMIN myalgia Active Immunizations Given and Recorded Vaccine Date Status Refusal Reason [id number] 12y+ bivalent booster vax 02/16/22 Recorded SARS-CoV-2 [...] (oldterm) 07/26/10 Given Tetanus-Diphth Toxoids, Adult (oldterm) 07/26/10 Given pneumococcal 23-valent vaccine 10/31/07 Recorded 1Result Comment: pt. tolerated inj. without complications....CO 2Result Comment: [facility] 37863-465-49 Pt tolerated vaccine without incident...NH 3Result Comment: [id number] 4Result Comment: [12/20/2017] [facility] 31592-111-24 5Result Comment: [12/18/2012] given w/o incidense...mh 6Admin Note: at work 7Result Comment: [facility] [address]-7 Pt tolerated vaccine without incident...NH 8Admin Note: [...] 12/06/22 15:50:00 EDT, Route to Pharmacy Electronically, [id number], [facility] #[id number], 173, cm, 08/16/22 8:14:00 EDT, [facility]... Start Date: 12/06/22 Stop Date: 01/05/23 Status: [...] 90 tablet, 3 Refills, 01/29/23 12:51:00 EST, [facility] #[id number], 173, cm, 01/29/23 11:56:00 EST, Height, 86, [...] tablet, 1 Refills, Maintenance, 07/23/20 12:40:00 EDT, [facility] #[id number], 174, cm, 06/10/20 10:35:00 EDT, Height, 90.2, [...] Gm, 0 Refills, Maintenance, 03/10/22 15:48:00 EST, [place], [facility] #70354, Partial fill upon patient request if the [...] tablet, 1 Refills, Maintenance, 09/26/22 11:55:00 EDT, [facility] #[id number], dose increased from 5 mg, 173, cm, 08/16/22 8:14:00 EDT, Height, 86, kg, 08/14/22 3:21:00 EDT, Dry Weight Start Date: 09/26/22 Stop Date: 03/25/23 Status: Ordered losartan 100 mg oral tablet 1 tablet, By Mouth, Daily, # 90 tablet, 3 Refills, Maintenance, 01/29/23 12:52:00 EST, [facility] #[id number], 173, cm, 01/29/23 11:56:00 EST, Height, 86, kg, 08/14/22 3:21:00 EDT, Dry Weight Start Date: 01/29/23 Status: Ordered Metoprolol Succinate ER 50 mg oral tablet, extended release 1 tablet = 50 mg, By Mouth, Daily, # 90 tablet, 3 Refills, Maintenance, 01/29/23 12:51:00 EST, ER Tablet, [facility] #[id number], 173, cm, 01/29/23 11:56:00 EST, Height, 86, [...] Care Member Role: PCP Address: Address: [address] [facility] [place] [address]- Care Team Related Persons Name: DELIA STOLL Address: [place] [address] Name: LYNNE STOLL Address: home [address] [place] [address]
--- OUTSIDE RECORDS SUMMARY | 2023-04-04 06:07 | XMS_ITS | Continuity of Care Document ---
Author Name Unknown Organization [facility] Address [address] [place] [address]- Care Team Providers Care Human Relations Manager Name Role Phone Roseline Ortega MD Primary Care Physician [phone] Encounter [facility] Date(s): 09/15/19 - 09/22/19 [facility] [address] [place] [address]- [facility] Attending Physician: Roseline Ortega MD Allergies, [...] Adult (oldterm) 5 07/26/10 Given 1Result Comment: [id number] 2Result Comment: [12/20/2017] [facility] 31470-620-19 3Result Comment: [12/18/2012] given w/o incidense...mh 4Admin [...] tablet, 3 Refills, Maintenance, 04/10/19 10:26:00 EST, [facility] #[id number], dose increased from 5 mg, 172, cm, [...] 06/12/19 10:13:00 EDT, Route to Pharmacy Electronically, [facility] #[id number], 172, cm, 04/10/19 10:04:00 EST, Height, 90.2, kg, 04/10/19 10:04:00 EST, Dry... Start Date: 06/12/19 Stop Date: 09/10/19 Status: Ordered simvastatin 40 mg oral tablet 40 mg, 1, tablet, By Mouth, Daily at bedtime, # 90 tablet, Refills 3, Tot. Refills 3, Maintenance, 10/31/18 9:36:28 EDT, Route to Pharmacy Electronically, [id number], [facility] #[id number] Start Date: 10/31/18 Status: Ordered Vitamin B12 [...] recent to oldest [Reference Range]: 1 Height 172 cm (09/15/19 9:36 AM) Weight 91.3 kg (09/15/19 9:36 AM) Oxygen Saturation [94-100 %] 96 % (09/15/19 9:36 AM) Pulse Rate [55-90 bpm] 56 bpm (09/15/19 9:36 AM) Body Mass Index [18.5-24.99] 30.86 *>HHI* (09/15/19 9:36 AM) Blood Pressure [90-138/55-84 mm Hg] 176/ 80mm Hg *H* (09/15/19 9:36 AM) Temperature [96.8-100.4 DegF] 95.5 DegF *L* (09/15/19 9:36 AM) Mode of Delivery (Oxygen) Room air (09/15/19 9:36 AM) Blood pressure sites Arm, left (09/15/19 9:36 AM) Temperature Route Temporal (09/15/19 9:36 AM) Weight Obtained Via Standing scale (09/15/19 9:36 AM) Social History Social History Type Response Smoking Status Never smoker; Tobacc o user in household: No entered on: 07/16/13 Sex
--- OUTSIDE RECORDS SUMMARY | 2023-04-04 06:07 | XMS_ITS | Continuity of Care Document ---
Author Name Unknown Organization [facility] Address [address] [place] [address]- Care Team Providers Care Rn Hospice Name Role Phone Roseline Ortega MD Primary Care Physician [phone] [facility] Date(s): 01/29/23 - 02/28/23 [facility] [address] [place], [place] [address] Attending Physician: Alisha Moser Admitting Physician: AdmAlisha delarosa Referring Physician: Admtr, ArJennifer Allergies, Adverse Reactions, Alerts Substance Reaction Severity Status metFORMIN myalgia Active Immunizations Given and Recorded Vaccine Date Status Refusal Reason [id number] 12y+ bivalent booster vax 02/16/22 Recorded SARS-CoV-2 [...] pt. tolerated inj. without complications....CO 2Result Comment: [facility] 29414-023-68 Pt tolerated vaccine without incident...NH 3Result Comment: [id number] 4Result Comment: [12/20/2017] [facility] 31550-841-68 5Result Comment: [12/18/2012] given w/o incidense...mh 6Admin Note: at work 7Result Comment: [facility] [address]-4 Pt tolerated vaccine without incident...NH 8Admin Note: [...] 12/06/22 15:50:00 EDT, Route to Pharmacy Electronically, [id number], [facility] #[id number], 585, cm, 08/16/22 8:14:00 EDT, [place]... Start Date: [...] Refills, Maintenance, 05/20/14 12:11:28, Tablet Start Date: 3/18/15 Status: Ordered atorvastatin 20 mg oral tablet 1 tablet, By Mouth, Daily, # 90 tablet, 3 Refills, 01/29/23 12:51:00 EST, [facility] #[id number], 173, cm, 01/29/23 11:56:00 EST, Height, 86, [...] tablet, 1 Refills, Maintenance, 07/23/20 12:40:00 EDT, [facility] #[id number], 174, cm, 06/10/20 10:35:00 EDT, Height, 90.2, [...] Gm, 0 Refills, Maintenance, 03/10/22 15:48:00 EST, [place], [facility] #[id number], Partial fill upon patient request if the [...] tablet, 1 Refills, Maintenance, 09/26/22 11:55:00 EDT, [facility] #[id number], dose increased from 5 mg, 173, cm, 08/16/22 8:14:00 EDT, Height, 86, kg, 08/14/22 3:21:00 EDT, Dry Weight Start Date: 09/26/22 Stop Date: 03/25/23 Status: Ordered losartan 100 mg oral tablet 1 tablet, By Mouth, Daily, # 90 tablet, 3 Refills, Maintenance, 01/29/23 12:52:00 EST, [facility] #45248, 173, cm, 01/29/23 11:56:00 EST, Height, 86, kg, 08/14/22 3:21:00 EDT, Dry Weight Start Date: 01/29/23 Status: Ordered Metoprolol Succinate ER 50 mg oral tablet, extended release 1 tablet = 50 mg, By Mouth, Daily, # 90 tablet, 3 Refills, Maintenance, 01/29/23 12:51:00 EST, ER Tablet, [facility] #[id number], 173, cm, 01/29/23 11:56:00 EST, Height, 86, [...] Personnel Name: Jordan STOCKTON, Roseline Frey Position: [facility] Physician - Primary Care Member Role: PCP Address: Address: [address] [facility] [place] [address]- Care Team Related Persons Name: DELIA STOLL Address: [place] [address] Name: LYNNE STOLL Address: [address] [address]
--- OUTSIDE RECORDS SUMMARY | 2023-04-04 06:07 | XMS_ITS | Continuity of Care Document ---
Author Name Unknown Organization [facility] Address [address] [place] [address]- Care Team Providers Care Industrial Engineering Technician Name Role Phone Jordan STOCKTON, Roseline Frey Primary Care Physician [phone] Encounter [facility] Date(s): 11/17/20 - 12/17/20 [facility] [address] [place], [place] [address] Allergies, Adverse Reactions, Alerts Substance Reaction [...] [facility] 70650-393-79 Pt tolerated vaccine without incident...NH 3Result Comment: [id number] 4Result Comment: [12/20/2017] [facility] [phone] 5Result Comment: [12/18/2012] given w/o incidense... 6Admin Note: at work 7Result Comment: [facility] [address]-9 Pt tolerated vaccine without incident...NH 8Admin Note: GIVEN W/O INCEDENT Medications aspirin 81 mg oral tablet 1 tablet = 81 mg, By Mouth, Daily, # 30 tablet, 0 Refills, Maintenance, 05/20/14 12:11:28, Tablet Start Date: 05/20/14 Status: Ordered atorvastatin 20 mg oral tablet 1 tablet = 20 mg, By Mouth, Daily, # 90 tablet, 1 Refills, Maintenance, 12/16/20 14:26:00 EDT, Tablet, [facility] #21215, simvastatin discontinued, lipids not at goal, 174, cm, 12/16/20 14:06:00 EDT, Height, 90.2, kg, 04/10/19 10:04:00 EST,... Start Date: 12/16/20 Stop Date: 06/14/21 Status: Ordered chlorthalidone 50 mg oral tablet 2 tablet = 100 mg, By Mouth, Daily, # 180 tablet, 1 Refills, Maintenance, 12/16/20 14:26:00 EDT, Tablet, [facility] #[id number], dose increased from 50 mg daily, 174, cm, 12/16/20 14:06:00 EDT, Height, 90.2, kg, 04/10/19 10:04:00 EST, Dry Weight Start Date: 12/16/20 Stop Date: 06/14/21 Status: Ordered FeroSul 325 mg oral tablet 1 tablet, By Mouth, Daily, # 100 tablet, 1 Refills, Maintenance, 07/23/20 12:40:00 EDT, [facility] #56857, 174, cm, 06/10/20 10:35:00 EDT, Height, 90.2, [...] tablet, 1 Refills, Maintenance, 12/16/20 14:26:00 EDT, [facility] #40177, dose increased from 5 mg, 174, cm, 12/16/20 14:06:00 EDT, Height, 90.2, kg, 04/10/19 10:04:00 EST, Dry Weight Start Date: 12/16/20 Stop Date: 06/14/21 Status: Ordered losartan 100 mg oral tablet 1 tablet = 100 mg, By Mouth, Daily, # 90 tablet, 1 Refills, Maintenance, 12/16/20 14:26:00 EDT, Tablet, [facility] #[id number], change from losartan-hctz, 174, cm, 12/16/20 14:06:00 EDT, Height,90.2, kg, 04/10/19 10:04:00 EST, Dry Weight Start Date: 12/16/20 Status: Ordered Metoprolol Succinate ER 50 mg oral tablet, extended release 1 tablet = 50 mg, By Mouth, Daily, # 90 tablet, 1 Refills, Maintenance, 12/16/20 14:26:00 EDT, ER Tablet, [facility] #93004, 174, cm, 12/16/20 14:06:00 EDT, Height, 90.2, [...]
--- OUTSIDE RECORDS SUMMARY | 2023-04-04 06:07 | XMS_ITS | Continuity of Care Document ---
Author Name Unknown Organization [facility] Address [address] [place] [address]- Care Team Providers Care Vacuum Truck Driver Name Role Phone Roseline Ortega MD Primary Care Physician Encounter [facility] Date(s): 08/28/22 - 09/27/22 [facility] [address] [place] [address]- Attending Physician: AdmAlisha delarosa Admitting Physician: Admtr, Alisha Referring Physician: Admtr, Ar8 Allergies, Adverse Reactions, Alerts Substance Reaction Severity Status metFORMIN myalgia Active Immunizations Given and Recorded Vaccine Date Status Refusal Reason [id number] 12y+ bivalent booster vax 02/16/22 Recorded SARS-CoV-2 [...] Tetanus-Diphth Toxoids, Adult (oldterm) 8 5/24/11 Given pneumococcal 23-valent vaccine 10/31/07 Recorded 1Result Comment: pt. tolerated inj. without complications....[place] 2Result Comment: [facility] 66967-072-30 Pt tolerated vaccine without incident...NH 3Result Comment: [id number] 4Result Comment: [12/20/2017] [facility] 84853-971-72 5Result Comment: [12/18/2012] given w/o incidense...mh 6Admin Note: at work 7Result Comment: [facility] [address]-5 Pt tolerated vaccine without incident...NH 8Admin Note: GIVEN W/O INCEDENT Medications albuterol CFC free 90 mcg/inh inhalation aerosol 2, puffs, Inhalation, Every 6 hours, PRN, # 8.5 Gm, Refills 0, Tot. Refills 0, Maintenance, 03/10/22 15:49:00 EST, Route to Pharmacy Electronically, [id number], [facility] #[id number], 173, cm, 03/10/22 15:20:00 EST, Hei... Start Date: 03/10/22 Stop Date: 04/09/22 Status: Ordered aspirin 81 mg oral tablet 1 tablet = 81 mg, By Mouth, Daily, # 30 tablet, 0 Refills, Maintenance, 05/20/14 12:11:28, Tablet Start Date: 05/20/14 Status: Ordered atorvastatin 20 mg oral tablet 1 tablet, By Mouth, Daily, # 90 tablet, 1 Refills, 09/26/22 11:55:00 EDT, [facility] #00240, 173, cm, 08/16/22 8:14:00 EDT, Height, 86, kg, 08/14/22 3:21:00 EDT, Dry Weight Start Date: 09/26/22 Status: Ordered chlorthalidone 50 mg oral tablet 2 tablet, By Mouth, Daily, # 180 tablet, 0 Refills, [facility] #[id number], 173, cm, 06/21/21 13:45:00 EDT, Height, 91.6, kg, 06/05/21 22:06:00 EDT, Dry Weight Start Date: 09/29/21 Status: Ordered FeroSul 325 mg oral tablet 1 tablet, By Mouth, Daily, # 100 tablet, 1 Refills, Maintenance, 07/23/20 12:40:00 EDT, [facility] #[id number], 174, cm, 06/10/20 10:35:00 EDT, Height, 90.2, [...] Gm, 0 Refills, Maintenance, 03/10/22 15:48:00 EST, [place], [facility] #69808, Partial fill upon patient request if the [...] tablet, 1 Refills, Maintenance, 09/26/22 11:55:00 EDT, [facility] #34957, dose increased from 5 mg, 173, cm, 08/16/22 8:14:00 EDT, Height, 86, kg, 08/14/22 3:21:00 EDT, Dry Weight Start Date: 09/26/22 Stop Date: 03/25/23 Status: Ordered lidocaine 5% topical film 1 patch, Topically, Daily, PRN Pain , Mild, remove after 12 hours, # 13 each, 0 Refills, Maintenance, 06/05/21 21:29:00 EDT, [place], [facility] #51768, Partial fill upon patient request if the prescription is for a schedule II opioid drug., 1... Start Date: 06/05/21 Status: Ordered losartan 100 mg oral tablet 1 tablet, By Mouth, Daily, # 90 tablet, 1 Refills, Maintenance, 08/08/22 20:35:00 EDT, [facility] #67305, 173, cm, 07/26/22 9:01:00 EDT, Height, 91.6, kg, 06/05/21 22:06:00 EDT, Dry Weight Start Date: 08/08/22 Status: Ordered Metoprolol Succinate ER 50 mg oral tablet, extended release 1 tablet = 50 mg, By Mouth, Daily, # 90 tablet, 1 Refills, Maintenance, 09/26/22 11:55:00 EDT, ER Tablet, [facility] #02007, 173, cm, 08/16/22 8:14:00 EDT, Height, 86, [...] Primary Care Member Role: PCP Address: Address: [address] [place] [address] Adult [place] [address]- Care Team Related Persons Name: DELIA STOLL Address: [place] [address] Name: LYNNE STOLL Address: home [address] [place] [address]
--- OUTSIDE RECORDS SUMMARY | 2023-04-04 06:07 | XMS_ITS | Continuity of Care Document ---
Author Name Unknown Organization [facility] Address [address] [place] [address]- Care Team Providers Care Network Program Manager Name Role Phone Jordan STOCKTON, Roseline Frey Primary Care Physician [phone] Encounter [facility] Date(s): 10/19/20 - 11/18/20 [facility] [address] [place], [place] [address] Allergies, Adverse Reactions, Alerts Substance Reaction Severity [...] Adult (oldterm) 7 07/26/10 Given 1Result Comment: [facility] [address]-4 Pt tolerated vaccine without incident...NH 2Result Comment: [facility] 85049-737-01 Pt tolerated vaccine without incident...NH 3Result Comment: [id number] 4Result Comment: [12/20/2017] [facility] 52831-332-01 5Result Comment: [12/18/2012] given w/o incidense...mh 6Admin [...] 1 Refills, Maintenance, 09/10/20 15:34:00 EDT, Tablet, [facility] #20431, simvastatin discontinued, lipids not at goal, 174, cm, 06/10/20 10:35:00 EDT, Height, 90.2, kg, 04/10/19 10:04:00 EST,... Start Date: 09/10/20 Stop Date: 03/09/21 Status: Ordered chlorthalidone 50 mg oral tablet 2 tablet = 100 mg, By Mouth, Daily, # 180 tablet, 3 Refills, Maintenance, 02/25/20 12:03:00 EST, Tablet, [facility] #72656, dose increased from 50 mg daily, 174, cm, 02/25/20 11:26:00 EST, Height, 90.2, kg, 04/10/19 10:04:00 EST, Dry Weight Start Date: 02/25/20 Stop Date: 02/19/21 Status: Ordered FeroSul 325 mg oral tablet 1 tablet, By Mouth, Daily, # 100 tablet, 1 Refills, Maintenance, 07/23/20 12:40:00 EDT, [facility] #[id number], 174, cm, 06/10/20 10:35:00 EDT, Height, 90.2, [...] tablet, 1 Refills, Maintenance, 07/23/20 12:39:00 EDT, [facility] #60639, dose increased from 5 mg, 174, cm, 06/10/20 10:35:00 EDT, Height, 90.2, kg, 04/10/19 10:04:00 EST, Dry Weight Start Date: 07/23/20 Stop Date: 01/19/21 Status: Ordered losartan 100 mg oral tablet 1 tablet = 100 mg, By Mouth, Daily, # 90 tablet, 1 Refills, Maintenance, 11/17/20 14:27:00 EDT, Tablet, [facility] #57007, change from losartan-hctz, 174, cm, 11/17/20 13:45:00 EDT, Height,90.2, kg, 04/10/19 10:04:00 EST, Dry Weight Start Date: 11/17/20 Status: Ordered Metoprolol Succinate ER 50 mg oral tablet, extended release 1 tablet = 50 mg, By Mouth, Daily, # 90 tablet, 1 Refills, Maintenance, 07/23/20 12:39:00 EDT, ER Tablet, [facility] #44300, 174, cm, 06/10/20 10:35:00 EDT, Height, 90.2, [...]
--- OUTSIDE RECORDS SUMMARY | 2023-04-04 06:07 | XMS_ITS | Continuity of Care Document ---
Author Name Unknown Organization [facility] ter Address [address] [place] [address]- Care Team Providers Care Bench Inspector Name Role Phone Roseline Ortega MD Primary Care Physician [phone] Encounter [facility] [place] Date(s): 09/18/22 - 10/18/[address] [address] Attending Physician: Marisel Christine MD Admitting Physician: Marisel Christine MD Referring Physician: Marisel Christine MD Allergies, Adverse Reactions, Alerts Substance Reaction Severity Status metFORMIN myalgia Active Immunizations Given and Recorded Vaccine Date Status Refusal Reason [id number] 12y+ bivalent booster vax 02/16/22 Recorded SARS-CoV-2 [...] tolerated inj. without complications....[place] 2Result Comment: [facility] 54735-641-46 Pt tolerated vaccine without incident...NH 3Result Comment: [id number] 4Result Comment: [12/20/2017] [facility] 70893-708-20 5Result Comment: [12/18/2012] given w/o incidense...mh 6Admin Note: at work 7Result Comment: [facility] [address]-1 Pt tolerated vaccine without incident...NH 8Admin Note: GIVEN W/O INCEDENT Medications albuterol CFC free 90 mcg/inh inhalation aerosol 2, puffs, Inhalation, Every 6 hours, PRN, # 8.5 Gm, Refills 0, Tot. Refills 0, Maintenance, 03/10/22 15:49:00 EST, Route to Pharmacy Electronically, [id number], [facility] #[id number], 173, cm, 03/10/22 15:20:00 EST, Hei... Start Date: 03/10/22 Stop Date: 04/09/22 Status: Ordered aspirin 81 mg oral tablet 1 tablet = 81 mg, By Mouth, Daily, # 30 tablet, 0 Refills, Maintenance, 05/20/14 12:11:28, Tablet Start Date: 05/20/14 Status: Ordered atorvastatin 20 mg oral tablet 1 tablet, By Mouth, Daily, # 90 tablet, 1 Refills, 09/26/22 11:55:00 EDT, [facility] #[id number], 173, cm, 08/16/22 8:14:00 EDT, Height, 86, kg, 08/14/22 3:21:00 EDT, Dry Weight Start Date: 09/26/22 Status: Ordered chlorthalidone 50 mg oral tablet 2 tablet, By Mouth, Daily, # 180 tablet, 0 Refills, [facility] #83509, 173, cm, 06/21/21 13:45:00 EDT, Height, 91.6, kg, 06/05/21 22:06:00 EDT, Dry Weight Start Date: 09/29/21 Status: Ordered FeroSul 325 mg oral tablet 1 tablet, By Mouth, Daily, # 100 tablet, 1 Refills, Maintenance, 07/23/20 12:40:00 EDT, [facility] #08533, 174, cm, 06/10/20 10:35:00 EDT, Height, 90.2, [...] Gm, 0 Refills, Maintenance, 03/10/22 15:48:00 EST, [place], [facility] #73217, Partial fill upon patient request if the [...] daily dx-E11.9, 03/22/21 12:37:00 EST, 174, cm, 10/14/21 14:06:00 EDT, Height, 90.2, kg, 04/10/19 10:04:00 EST, Dry Weight Start Date: 03/22/21 Status: Ordered glipiZIDE 10 mg oral tablet 1 tablet = 10 mg, By Mouth, 2 times a day, # 180 tablet, 1 Refills, Maintenance, 09/26/22 11:55:00 EDT, [facility] #63341, dose increased from 5 mg, 173, cm, 08/16/22 8:14:00 EDT, Height, 86, kg, 08/14/22 3:21:00 EDT, Dry Weight Start Date: 09/26/22 Stop Date: 03/25/23 Status: Ordered lidocaine 5% topical film 1 patch, Topically, Daily, PRN Pain , Mild, remove after 12 hours, # 13 each, 0 Refills, Maintenance, 06/05/21 21:29:00 EDT, Film, [facility] #[id number], Partial fill upon patient request if the prescription is for a schedule II opioid drug., 1... Start Date: 06/05/21 Status: Ordered losartan 100 mg oral tablet 1 tablet, By Mouth, Daily, # 90 tablet, 1 Refills, Maintenance, 08/08/22 20:35:00 EDT, [facility] #67014, 173, cm, 07/26/22 9:01:00 EDT, Height, 91.6, kg, 06/05/21 22:06:00 EDT, Dry Weight Start Date: 08/08/22 Status: Ordered Metoprolol Succinate ER 50 mg oral tablet, extended release 1 tablet = 50 mg, By Mouth, Daily, # 90 tablet, 1 Refills, Maintenance, 09/26/22 11:55:00 EDT, ER Tablet, [facility] #65524, 173, cm, 08/16/22 8:14:00 EDT, Height, 86, [...] Personnel Name: Jordan STOCKTON, Roseline Frey Position: [facility] Physician - Primary Care Member Role: PCP Address: Address: [address] [place] [address] Adult & [place] [address]- Care Team Related Persons Name: DELIA STOLL Address: [place] [address] Name: LYNNE STOLL Address: home [address] [place] [address]
--- OUTSIDE RECORDS SUMMARY | 2023-04-04 06:07 | XMS_ITS | Continuity of Care Document ---
Author Name Unknown Organization [facility] Address [address] [place] [address]- Care Team Providers Care Patient Admitting Clerk Name Role Phone Roseline Ortega MD Primary Care Physician [phone] [facility]): 09[facility]22 - 10/01/22 [facility] [address] [place], [place] [address] Allergies, Adverse Reactions, Alerts Substance Reaction Severity Status metFORMIN myalgia Active Immunizations Given and Recorded Vaccine Date Status Refusal Reason [id number] 12y+ bivalent booster vax 02/16/22 Recorded SARS-CoV-2 [...] pt. tolerated inj. without complications....CO 2Result Comment: [facility] 24038-472-73 Pt tolerated vaccine without incident...NH 3Result Comment: [id number] 4Result Comment: [12/20/2017] [facility] [id number] 5Result Comment: [12/18/2012] given w/o incidense...mh 6Admin Note: at work 7Result Comment: [facility] [address]-5 Pt tolerated vaccine without incident...NH 8Admin Note: GIVEN W/O INCEDENT Medications albuterol CFC free 90 mcg/inh inhalation aerosol 2, puffs, Inhalation, Every 6 hours, PRN, # 8.5 Gm, Refills 0, Tot. Refills 0, Maintenance, 03/10/22 15:49:00 EST, Route to Pharmacy Electronically, [id number], [facility] #[id number], 173, cm, 03/10/22 15:20:00 EST, Hei... Start Date: 03/10/22 Stop Date: 04/09/22 Status: Ordered aspirin 81 mg oral tablet 1 tablet = 81 mg, By Mouth, Daily, # 30 tablet, 0 Refills, Maintenance, 05/20/14 12:11:28, Tablet Start Date: 05/20/14 Status: Ordered atorvastatin 20 mg oral tablet 1 tablet, By Mouth, Daily, # 90 tablet, 1 Refills, 09/26/22 11:55:00 EDT, [facility] #[id number], 173, cm, 08/16/22 8:14:00 EDT, Height, 86, kg, 08/14/22 3:21:00 EDT, Dry Weight Start Date: 09/26/22 Status: Ordered chlorthalidone 50 mg oral tablet 2 tablet, By Mouth, Daily, # 180 tablet, 0 Refills, [facility] #[id number], 173, cm, 06/21/21 13:45:00 EDT, Height, 91.6, kg, 06/05/21 22:06:00 EDT, Dry Weight Start Date: 09/29/21 Status: Ordered FeroSul 325 mg oral tablet 1 tablet, By Mouth, Daily, # 100 tablet, 1 Refills, Maintenance, 07/23/20 12:40:00 EDT, [facility] #[id number], 174, cm, 06/10/20 10:35:00 EDT, Height, 90.2, [...] Gm, 0 Refills, Maintenance, 03/10/22 15:48:00 EST, [place], [facility] #[id number], Partial fill upon patient request if the [...] tablet, 1 Refills, Maintenance, 09/26/22 11:55:00 EDT, [facility] #[id number], dose increased from 5 mg, 173, cm, 08/16/22 8:14:00 EDT, Height, 86, kg, 08/14/22 3:21:00 EDT, Dry Weight Start Date: 09/26/22 Stop Date: 03/25/23 Status: Ordered lidocaine 5% topical film 1 patch, Topically, Daily, PRN Pain , Mild, remove after 12 hours, # 13 each, 0 Refills, Maintenance, 06/05/21 21:29:00 EDT, [place], [facility] #[id number], Partial fill upon patient request if the prescription is for a schedule II opioid drug., 1... Start Date: 06/05/21 Status: Ordered losartan 100 mg oral tablet 1 tablet, By Mouth, Daily, # 90 tablet, 1 Refills, Maintenance, 08/08/22 20:35:00 EDT, [facility] #[id number], 173, cm, 07/26/22 9:01:00 EDT, Height, 91.6, kg, 06/05/21 22:06:00 EDT, Dry Weight Start Date: 08/08/22 Status: Ordered Metoprolol Succinate ER 50 mg oral tablet, extended release 1 tablet = 50 mg, By Mouth, Daily, # 90 tablet, 1 Refills, Maintenance, 09/26/22 11:55:00 EDT, ER Tablet, [facility] #[id number], 173, cm, 08/16/22 8:14:00 EDT, Height, 86, [...] Personnel Name: Jordan STOCKTON, Roseline Frey Position: [facility] Physician - Primary Care Member Role: PCP Address: Address: [address] [place] [address] Adult [place] [address]- Care Team Related Persons Name: DELIA STOLL Address: [place] [address] Name: LYNNE STOLL Address: [address] [address]
--- OUTSIDE RECORDS SUMMARY | 2023-04-04 06:07 | XMS_ITS | Continuity of Care Document ---
Author Name Unknown Organization [facility] Address [address] [place] [address]- Care Team Providers Care Race Car Driver Name Role Phone Jordan STOCKTON, Roseline Frey Primary Care Physician [facility] Date[facility]s): 03/22/21 - 05/12/21 [facility] [address] [place], [place] [address] Attending Physician: Roseline Ortega MD Allergies, [...] pt. tolerated inj. without complications....CO 2Result Comment: [facility] 63512-847-63 Pt tolerated vaccine without incident...NH 3Result Comment: [id number] 4Result Comment: [12/20/2017] [facility] 01809-517-03 5Result Comment: [12/18/2012] given w/o incidense...mh 6Admin Note: at work 7Result Comment: [facility] [address]-9 Pt tolerated vaccine without incident...NH 8Admin Note: GIVEN W/O INCEDENT Medications aspirin 81 mg oral tablet 1 tablet = 81 mg, By Mouth, Daily, # 30 tablet, 0 Refills, Maintenance, 05/20/14 12:11:28, Tablet Start Date: 05/20/14 Status: Ordered atorvastatin 20 mg oral tablet 1 tablet = 20 mg, By Mouth, Daily, # 90 tablet, 1 Refills, Maintenance, 12/16/20 14:26:00 EDT, Tablet, [facility] #[id number], simvastatin discontinued, lipids not at goal, 174, cm, 12/16/20 14:06:00 EDT, Height, 90.2, kg, 04/10/19 10:04:00 EST,... Start Date: 12/16/20 Stop Date: 06/14/21 Status: Ordered chlorthalidone 50 mg oral tablet 2 tablet = 100 mg, By Mouth, Daily, # 180 tablet, 1 Refills, Maintenance, 12/16/20 14:26:00 EDT, Tablet, [facility] #[id number], dose increased from 50 mg daily, 174, cm, 12/16/20 14:06:00 EDT, Height, 90.2, kg, 04/10/19 10:04:00 EST, Dry Weight Start Date: 12/16/20 Stop Date: 06/14/21 Status: Ordered FeroSul 325 mg oral tablet 1 tablet, By Mouth, Daily, # 100 tablet, 1 Refills, Maintenance, 07/23/20 12:40:00 EDT, [facility] #[id number], 174, cm, 06/10/20 10:35:00 EDT, Height, 90.2, [...] tablet, 1 Refills, Maintenance, 12/16/20 14:26:00 EDT, [facility] #[id number], dose increased from 5 mg, 174, cm, 12/16/20 14:06:00 EDT, Height, 90.2, kg, 04/10/19 10:04:00 EST, Dry Weight Start Date: 12/16/20 Stop Date: 06/14/21 Status: Ordered losartan 100 mg oral tablet 1 tablet = 100 mg, By Mouth, Daily, # 90 tablet, 1 Refills, Maintenance, 12/16/20 14:26:00 EDT, Tablet, [facility] #[id number], change from losartan-hctz, 174, cm, 12/16/20 14:06:00 EDT, Height,90.2, kg, 04/10/19 10:04:00 EST, Dry Weight Start Date: 12/16/20 Status: Ordered Metoprolol Succinate ER 50 mg oral tablet, extended release 1 tablet = 50 mg, By Mouth, Daily, # 90 tablet, 1 Refills, Maintenance, 12/16/20 14:26:00 EDT, ER Tablet, [facility] #[id number], 174, cm, 12/16/20 14:06:00 EDT, Height, 90.2, [...]
--- OUTSIDE RECORDS SUMMARY | 2023-04-04 06:07 | XMS_ITS | Continuity of Care Document ---
Author Name Unknown Organization [facility] ter Address [address] [place] [address]- Care Team Providers Care Director Of Customer Acquisition Name Role Phone Roseline Ortega MD Primary Care Physician [facility] Date[facility]s): 07/26/22 - 09/16/[address] [address] Attending Physician: Roseline Ortega MD Admitting Physician: Roseline Ortega MD Referring Physician: Roseline Ortega MD Allergies, Adverse Reactions, Alerts Substance Reaction Severity Status metFORMIN myalgia Active Immunizations Given and Recorded Vaccine Date Status Refusal Reason [id number] 12y+ bivalent booster vax 02/16/22 Recorded SARS-CoV-2 [...] pt. tolerated inj. without complications....CO 2Result Comment: [facility] 69151-626-07 Pt tolerated vaccine without incident...NH 3Result Comment: [id number] 4Result Comment: [12/20/2017] [facility] 48080-390-25 5Result Comment: [12/18/2012] given w/o incidense...mh 6Admin Note: at work 7Result Comment: [facility] [address]-8 Pt tolerated vaccine without incident...NH 8Admin Note: GIVEN W/O INCEDENT Medications albuterol CFC free 90 mcg/inh inhalation aerosol 2, puffs, Inhalation, Every 6 hours, PRN, # 8.5 Gm, Refills 0, Tot. Refills 0, Maintenance, 03/10/22 15:49:00 EST, Route to Pharmacy Electronically, [id number], [facility] #[id number], 173, cm, 03/10/22 15:20:00 EST, Hei... Start Date: 03/10/22 Stop Date: 04/09/22 Status: Ordered aspirin 81 mg oral tablet 1 tablet = 81 mg, By Mouth, Daily, # 30 tablet, 0 Refills, Maintenance, 05/20/14 12:11:28, Tablet Start Date: 05/20/14 Status: Ordered atorvastatin 20 mg oral tablet 1 tablet, By Mouth, Daily, # 90 tablet, 1 Refills, 10/11/21 10:22:00 EDT, [facility] #[id number], 173, cm, 10/11/21 10:04:00 EDT, Height, 91.6, kg, 06/05/21 22:06:00 EDT, Dry Weight Start Date: 10/11/21 Status: Ordered chlorthalidone 50 mg oral tablet 2 tablet, By Mouth, Daily, # 180 tablet, 0 Refills, [facility] #52987, 173, cm, 06/21/21 13:45:00 EDT, Height, 91.6, kg, 06/05/21 22:06:00 EDT, Dry Weight Start Date: 09/29/21 Status: Ordered FeroSul 325 mg oral tablet 1 tablet, By Mouth, Daily, # 100 tablet, 1 Refills, Maintenance, 07/23/20 12:40:00 EDT, [facility] #99856, 174, cm, 06/10/20 10:35:00 EDT, Height, 90.2, [...] Gm, 0 Refills, Maintenance, 03/10/22 15:48:00 EST, [place], [facility] #[id number], Partial fill upon patient request if the [...] tablet, 1 Refills, Maintenance, 10/11/21 10:22:00 EDT, [facility] #29519, dose increased from 5 mg, 173, cm, 10/11/21 10:04:00 EDT, Height, 91.6, kg, 06/05/21 22:06:00 EDT, Dry Weight Start Date: 10/11/21 Stop Date: 04/09/22 Status: Ordered lidocaine 5% topical film 1 patch, Topically, Daily, PRN Pain , Mild, remove after 12 hours, # 13 each, 0 Refills, Maintenance, 06/05/21 21:29:00 EDT, Film, [facility] #[id number], Partial fill upon patient request if the prescription is for a schedule II opioid drug., 1... Start Date: 06/05/21 Status: Ordered losartan 100 mg oral tablet 1 tablet, By Mouth, Daily, # 90 tablet, 1 Refills, Maintenance, 08/08/22 20:35:00 EDT, [facility] #[id number], 173, cm, 07/26/22 9:01:00 EDT, Height, 91.6, kg, 06/05/21 22:06:00 EDT, Dry Weight Start Date: 08/08/22 Status: Ordered Metoprolol Succinate ER 50 mg oral tablet, extended release 1 tablet = 50 mg, By Mouth, Daily, # 90 tablet, 1 Refills, Maintenance, 10/11/21 10:22:00 EDT, ER Tablet, [facility] #07905, 173, cm, 10/11/21 10:04:00 EDT, Height, 91.6, [...] Primary Care Member Role: PCP Address: Address: [address] [place] [address] Adult & [place] [address]- Care Team Related Persons Name: DELIA STOLL Address: [place] [address] Name: LYNNE STOLL Address: [address] [address]
--- OUTSIDE RECORDS SUMMARY | 2023-04-04 06:07 | XMS_ITS | Continuity of Care Document ---
Author Name Unknown Organization [facility] Address [address] [place] [address]- Care Team Providers Care Artist Woodblock Name Role Phone Jordan STOCKTON, Roseline Frey Primary Care Physician [facility] Date[facility]s): 03/22/21 - 03/29/21 [facility] [address] [place], [place] [address] Attending Physician: Roseline Ortega MD [...] without complications....CO 2Result Comment: [facility] 86326-956-31 Pt tolerated vaccine without incident...NH 3Result Comment: [id number] 4Result Comment: [12/20/2017] [facility] 45051-040-05 5Result Comment: [12/18/2012] given w/o incidense...mh 6Admin Note: at work 7Result Comment: [facility] [address]-8 Pt tolerated vaccine without incident...NH 8Admin Note: GIVEN W/O INCEDENT Medications aspirin 81 mg oral tablet 1 tablet = 81 mg, By Mouth, Daily, # 30 tablet, 0 Refills, Maintenance, 05/20/14 12:11:28, Tablet Start Date: 05/20/14 Status: Ordered atorvastatin 20 mg oral tablet 1 tablet = 20 mg, By Mouth, Daily, # 90 tablet, 1 Refills, Maintenance, 12/16/20 14:26:00 EDT, Tablet, [facility] #[id number], simvastatin discontinued, lipids not at goal, 174, cm, 12/16/20 14:06:00 EDT, Height, 90.2, kg, 04/10/19 10:04:00 EST,... Start Date: 12/16/20 Stop Date: 06/14/21 Status: Ordered chlorthalidone 50 mg oral tablet 2 tablet = 100 mg, By Mouth, Daily, # 180 tablet, 1 Refills, Maintenance, 12/16/20 14:26:00 EDT, Tablet, [facility] #[id number], dose increased from 50 mg daily, 174, cm, 12/16/20 14:06:00 EDT, Height, 90.2, kg, 04/10/19 10:04:00 EST, Dry Weight Start Date: 12/16/20 Stop Date: 06/14/21 Status: Ordered FeroSul 325 mg oral tablet 1 tablet, By Mouth, Daily, # 100 tablet, 1 Refills, Maintenance, 07/23/20 12:40:00 EDT, [facility] #[id number], 174, cm, 06/10/20 10:35:00 EDT, Height, 90.2, [...] tablet, 1 Refills, Maintenance, 12/16/20 14:26:00 EDT, [facility] #[id number], dose increased from 5 mg, 174, cm, 12/16/20 14:06:00 EDT, Height, 90.2, kg, 04/10/19 10:04:00 EST, Dry Weight Start Date: 12/16/20 Stop Date: 06/14/21 Status: Ordered losartan 100 mg oral tablet 1 tablet = 100 mg, By Mouth, Daily, # 90 tablet, 1 Refills, Maintenance, 12/16/20 14:26:00 EDT, Tablet, [facility] #[id number], change from losartan-hctz, 174, cm, 12/16/20 14:06:00 EDT, Height,90.2, kg, 04/10/19 10:04:00 EST, Dry Weight Start Date: 12/16/20 Status: Ordered Metoprolol Succinate ER 50 mg oral tablet, extended release 1 tablet = 50 mg, By Mouth, Daily, # 90 tablet, 1 Refills, Maintenance, 12/16/20 14:26:00 EDT, ER Tablet, [facility] #[id number], 174, cm, 12/16/20 14:06:00 EDT, Height, 90.2, [...] recent to oldest [Reference Range]: 1 Height 174 cm (03/22/21 12:37 PM) Weight 87 kg (03/22/21 12:37 PM) Oxygen Saturation [94-100 %] 99 % (03/22/21 12:37 PM) Pulse Rate [55-90 bpm] 60 bpm (03/22/21 12:37 PM) Body Mass Index [18.5-24.99] 28.74 *H* (03/22/21 12:37 PM) Blood Pressure [90-138/55-84 mm Hg] 170/ 88mm Hg *H* (03/22/21 12:37 PM) Blood pressure sites Arm, left (03/22/21 12:37 PM) Social History Social History Type Response Smoking Status Never smoker; Tobacc o user in household: No entered on: 07/16/13 Sex
--- OUTSIDE RECORDS SUMMARY | 2023-04-04 06:07 | XMS_ITS | Continuity of Care Document ---
Author Name Unknown Organization [facility] Address [address] [place] [address]- Care Team Providers Care Spectrographer Name Role Phone Jordan STOCKTON, Roseline Frey Primary Care Physician [phone] [facility] Date(s): 04/10/19 - 04/17/19 [facility] [address] [place] [address]- [facility] Attending Physician: Roseline Ortega MD Allergies, Adverse [...] Adult (oldterm) 5 07/26/10 Given 1Result Comment: [id number] 2Result Comment: [12/20/2017] [facility] 14783-614-25 3Result Comment: [12/18/2012] given w/o incidense...mh 4Admin [...] tablet, 3 Refills, Maintenance, 04/10/19 10:26:00 EST, [facility] #[id number], dose increased from 5 mg, 172, cm, [...] 60 mg, 1, tablet, By Mouth, Daily, Refills 0, Maintenance, 10/31/18 9:37:05 EDT Start Date: 10/31/18 Status: Ordered One Touch Ultra Test Strips See Instructions, # 200 each, Refills 5, Tot. Refills 5, Maintenance, use as directed for Type 2 Diabetes Mellitus check bid -ac, 01/09/17 16:01:44, Compound Start Date: 01/09/17 Stop Date: 07/08/17 Status: Ordered simvastatin 40 mg oral tablet 40 mg, 1, tablet, By Mouth, Daily at bedtime, # 90 tablet, Refills 3, Tot. Refills 3, Maintenance, 10/31/18 9:36:28 EDT, Route to Pharmacy Electronically, [id number], [facility] #[id number] Start Date: 10/31/18 Status: Ordered Vitamin B12 [...] oldest [Reference Range]: 1 Height 172 cm (04/10/19 10:04 AM) Weight 90.2 kg (04/10/19 10:04 AM) Oxygen Saturation [94-100 %] 98 % (04/10/19 10:04 AM) Pulse Rate [55-90 bpm] 57 bpm (04/10/19 10:04 AM) Body Mass Index [18.5-24.99] 30.49 *>HHI* (04/10/19 10:04 AM) Blood Pressure [90-138/55-84 mm Hg] 178/ 84mm Hg *H* (04/10/19 10:04 AM) Temperature [96.8-100.4 DegF] 99.0 DegF (04/10/19 10:04 AM) Mode of Delivery (Oxygen) Room air (04/10/19 10:04 AM) Blood pressure sites Arm, right (04/10/19 10:04 AM) Temperature Route Oral (04/10/19 10:04 AM) Dry Weight 90.2 kg (04/10/19 10:04 AM) Weight Obtained Via Standing scale (04/10/19 10:04 AM) Social History Social History Type Response Smoking Status Never smoker; Tobacc o user in household: No entered on: 07/16/13 Sex
--- OUTSIDE RECORDS SUMMARY | 2023-04-04 06:07 | XMS_ITS | Continuity of Care Document ---
Author Name Unknown Organization [facility] Address [address] [place] [address]- Care Team Providers Care Sand Screener Operator Name Role Phone Roseline Ortega MD Primary Care Physician [phone] Encounter [facility] Date(s): 10/11/21 - 10/18/21 [facility] [address] [place], [place] [address] Attending Physician: Roseline Ortega MD [...] pt. tolerated inj. without complications....CO 2Result Comment: [facility] 01642-775-24 Pt tolerated vaccine without incident...NH 3Result Comment: [id number] 4Result Comment: [12/20/2017] [facility] 37781-837-08 5Result Comment: [12/18/2012] given w/o incidense...mh 6Admin Note: at work 7Result Comment: [facility] [address]-6 Pt tolerated vaccine without incident...NH 8Admin Note: GIVEN W/O INCEDENT Medications aspirin 81 mg oral tablet 1 tablet = 81 mg, By Mouth, Daily, # 30 tablet, 0 Refills, Maintenance, 05/20/14 12:11:28, Tablet Start Date: 05/20/14 Status: Ordered atorvastatin 20 mg oral tablet 1 tablet, By Mouth, Daily, # 90 tablet, 1 Refills, 10/11/21 10:22:00 EDT, [facility] #[id number], 173, cm, 10/11/21 10:04:00 EDT, Height, 91.6, kg, 06/05/21 22:06:00 EDT, Dry Weight Start Date: 10/11/21 Status: Ordered chlorthalidone 50 mg oral tablet 2 tablet, By Mouth, Daily, # 180 tablet, 0 Refills, [facility] #[id number], 173, cm, 06/21/21 13:45:00 EDT, Height, 91.6, kg, 06/05/21 22:06:00 EDT, Dry Weight Start Date: 09/29/21 Status: Ordered FeroSul 325 mg oral tablet 1 tablet, By Mouth, Daily, # 100 tablet, 1 Refills, Maintenance, 07/23/20 12:40:00 EDT, [facility] #[id number], 174, cm, 06/10/20 10:35:00 EDT, Height, 90.2, [...] tablet, 1 Refills, Maintenance, 10/11/21 10:22:00 EDT, [facility] #[id number], dose increased from 5 mg, 173, cm, 10/11/21 10:04:00 EDT, Height, 91.6, kg, 06/05/21 22:06:00 EDT, Dry Weight Start Date: 10/11/21 Stop Date: 04/09/22 Status: Ordered lidocaine 5% topical film 1 patch, Topically, Daily, PRN Pain , Mild, remove after 12 hours, # 13 each, 0 Refills, Maintenance, 06/05/21 21:29:00 EDT, Film, [facility] #[id number], Partial fill upon patient request if the prescription is for a schedule II opioid drug., 1... Start Date: 06/05/21 Status: Ordered losartan 100 mg oral tablet 1 tablet = 100 mg, By Mouth, Daily, # 90 tablet, 1 Refills, Maintenance, 10/11/21 10:22:00 EDT, Tablet, [facility] #[id number], change from losartan-hctz, 173, cm, 10/11/21 10:04:00 EDT, Height,91.6, kg, 06/05/21 22:06:00 EDT, Dry Weight Start Date: 10/11/21 Status: Ordered Metoprolol Succinate ER 50 mg oral tablet, extended release 1 tablet = 50 mg, By Mouth, Daily, # 90 tablet, 1 Refills, Maintenance, 10/11/21 10:22:00 EDT, ER Tablet, [facility] #[id number], 173, cm, 10/11/21 10:04:00 EDT, Height, 91.6, [...] [Reference Range]: 1 2 Height 173 cm (10/11/21 10:04 AM) 173 cm (10/11/21 10:00 AM) Weight 83.9 kg (10/11/21 10:00 AM) Oxygen Saturation [94-100 %] 96 % (10/11/21 10:00 AM) Pulse Rate [55-90 bpm] 64 bpm (10/11/21 10:00 AM) Body Mass Index [18.5-24.99] 28.03 *H* (10/11/21 10:00 AM) Blood Pressure [90-138/55-84 mm Hg] 164/ 84mm Hg *H* (10/11/21 10:04 AM) 170/86mm Hg *H* (10/11/21 10:00 AM) Mode of Delivery (Oxygen) Room air (10/11/21 10:00 AM) Blood pressure sites Arm, left (10/11/21 10:04 AM) Arm, left (10/11/21 10:00 AM) Weight Obtained Via Standing scale (10/11/21 10:00 AM) Social History Social History Type Response Smoking Status Never smoker; Tobacc o user in household: No entered on: 07/16/13 Sex
--- OUTSIDE RECORDS SUMMARY | 2023-04-04 06:07 | XMS_ITS | Continuity of Care Document ---
Author Name Unknown Organization [facility] Address [address] [place] [address]- Care Team Providers Care Policy Director Name Role Phone Roseline Ortega MD Primary Care Physician [phone] Encounter [facility] Date(s): 06/12/20 - 10/10/20 [facility] [address] [place], [place] [address] Attending Physician: [...] Adult (oldterm) 7 07/26/10 Given 1Result Comment: [facility] [address]-7 Pt tolerated vaccine without incident...NH 2Result Comment: [facility] 47616-091-32 Pt tolerated vaccine without incident...ME 3Result Comment: [id number] 4Result Comment: [12/20/2017] [facility] [id number] 5Result Comment: [12/18/2012] given w/o incidense...mh 6Admin [...] 1 Refills, Maintenance, 09/10/20 15:34:00 EDT, Tablet, [facility] #[id number], simvastatin discontinued, lipids not at goal, 174, cm, 06/10/20 10:35:00 EDT, Height, 90.2, kg, 04/10/19 10:04:00 EST,... Start Date: 09/10/20 Stop Date: 03/09/21 Status: Ordered chlorthalidone 50 mg oral tablet 2 tablet = 100 mg, By Mouth, Daily, # 180 tablet, 3 Refills, Maintenance, 02/25/20 12:03:00 EST, Tablet, [facility] #[id number], dose increased from 50 mg daily, 174, cm, 02/25/20 11:26:00 EST, Height, 90.2, kg, 04/10/19 10:04:00 EST, Dry Weight Start Date: 02/25/20 Stop Date: 02/19/21 Status: Ordered FeroSul 325 mg oral tablet 1 tablet, By Mouth, Daily, # 100 tablet, 1 Refills, Maintenance, 07/23/20 12:40:00 EDT, [facility] #[id number], 174, cm, 06/10/20 10:35:00 EDT, Height, 90.2, [...] tablet, 1 Refills, Maintenance, 07/23/20 12:39:00 EDT, [facility] #[id number], dose increased from 5 mg, 174, cm, 06/10/20 10:35:00 EDT, Height, 90.2, kg, 04/10/19 10:04:00 EST, Dry Weight Start Date: 07/23/20 Stop Date: 01/19/21 Status: Ordered losartan 100 mg oral tablet 1 tablet = 100 mg, By Mouth, Daily, # 90 tablet, 0 Refills, Maintenance, 02/16/20 7:38:00 EST, Tablet, [facility] #21214, change from losartan- hctz, 174, cm, 01/21/20 10:35:00 EST, Height, 90.2, kg, 04/10/19 10:04:00 EST, Dry Weight Start Date: 02/16/20 Status: Ordered Metoprolol Succinate ER 50 mg oral tablet, extended release 1 tablet = 50 mg, By Mouth, Daily, # 90 tablet, 1 Refills, Maintenance, 07/23/20 12:39:00 EDT, ER Tablet, [id number] #[id number], 174, cm, 06/10/20 10:35:00 EDT, Height, 90.2, [...]
--- OUTSIDE RECORDS SUMMARY | 2023-04-04 06:07 | XMS_ITS | Continuity of Care Document ---
Author Name Unknown Organization [facility] ter Address [address] [place] [address]- Care Team Providers Care Postage Machine Operator Name Role Phone Roseline Ortega MD Primary Care Physician Encounter [facility] Date(s): 06/05/21 - 06/05/[address] [address]- Encounter Diagnosis Right wrist pain(Final) - 06/05/21 Discharge Disposition: A-D/C Home Attending Physician: Liana Don DO Admitting Physician: Liana Don DO Referring Physician: Not on Staff, Referring MD [...] without complications....CO 2Result Comment: [facility] 89565-488-82 Pt tolerated vaccine without incident...NH 3Result Comment: [id number] 4Result Comment: [12/20/2017] [facility] [id number] 5Result Comment: [12/18/2012] given w/o incidense...mh 6Admin Note: at work 7Result Comment: [facility] [address]-7 Pt tolerated vaccine without incident...NH 8Admin Note: GIVEN W/O INCEDENT Medications aspirin 81 mg oral tablet 1 tablet = 81 mg, By Mouth, Daily, # 30 tablet, 0 Refills, Maintenance, 05/20/14 12:11:28, Tablet Start Date: 05/20/14 Status: Ordered atorvastatin 20 mg oral tablet 1 tablet = 20 mg, By Mouth, Daily, # 90 tablet, 1 Refills, Maintenance, 12/16/20 14:26:00 EDT, Tablet, [facility] #[id number], simvastatin discontinued, lipids not at goal, 174, cm, 12/16/20 14:06:00 EDT, Height, 90.2, kg, 04/10/19 10:04:00 EST,... Start Date: 12/16/20 Stop Date: 06/14/21 Status: Ordered cephalexin monohydrate 500 mg oral capsule 1 capsule = 500 mg, By Mouth, Every 6 hours, for 7 days, # 28 capsule, 0 Refills, Acute 06/12/21 21:27:00 EDT, 06/05/21 21:27:00 EDT, Capsule, [facility] #[id number], Partial fill upon patient request if the prescription is for a schedule II opio... Start Date: 06/05/21 Stop Date: 06/12/21 Status: Ordered chlorthalidone 50 mg oral tablet 2 tablet = 100 mg, By Mouth, Daily, # 180 tablet, 1 Refills, Maintenance, 12/16/20 14:26:00 EDT, Tablet, [facility] #[id number], dose increased from 50 mg daily, 174, cm, 12/16/20 14:06:00 EDT, Height, 90.2, kg, 04/10/19 10:04:00 EST, Dry Weight Start Date: 12/16/20 Stop Date: 06/14/21 Status: Ordered FeroSul 325 mg oral tablet 1 tablet, By Mouth, Daily, # 100 tablet, 1 Refills, Maintenance, 07/23/20 12:40:00 EDT, [facility] #[id number], 174, cm, 06/10/20 10:35:00 EDT, Height, 90.2, [...] tablet, 1 Refills, Maintenance, 12/16/20 14:26:00 EDT, [facility] #10990, dose increased from 5 mg, 174, cm, 12/16/20 14:06:00 EDT, Height, 90.2, kg, 04/10/19 10:04:00 EST, Dry Weight Start Date: 12/16/20 Stop Date: 06/14/21 Status: Ordered lidocaine 5% topical film 1 patch, Topically, Daily, PRN Pain , Mild, remove after 12 hours, # 13 each, 0 Refills, Maintenance, 06/05/21 21:29:00 EDT, [place], [facility] #[id number], Partial fill upon patient request if the prescription is for a schedule II opioid drug., 1... Start Date: 06/05/21 Status: Ordered losartan 100 mg oral tablet 1 tablet = 100 mg, By Mouth, Daily, # 90 tablet, 1 Refills, Maintenance, 12/16/20 14:26:00 EDT, Tablet, [facility] #[id number], change from losartan-hctz, 174, cm, 12/16/20 14:06:00 EDT, Height,90.2, kg, 04/10/19 10:04:00 EST, Dry Weight Start Date: 12/16/20 Status: Ordered Metoprolol Succinate ER 50 mg oral tablet, extended release 1 tablet = 50 mg, By Mouth, Daily, # 90 tablet, 1 Refills, Maintenance, 12/16/20 14:26:00 EDT, ER Tablet, [facility] #97207, 174, cm, 12/16/20 14:06:00 EDT, Height, 90.2, [...] Active Hypertension(Confirmed) Active Obese class I(Confirmed) Active Results Radiology Reports * Exam Date Time Procedure Performing Provider Status 06/05/21 5:08 PM Wrist Comp Min 3 Views Right Elan Connolly umercedes; Auth (Verified) Notes: (Wrist Comp Min 3 Views Right) Reason For Exam: with Pain;Trauma RESULT: Wrist Comp Min 3 Views Right Wrist Comp Min 3 Views Right CLINICAL INDICATION: Hx of Present Illness: : c o rt wrist pain nki ? arthritis pain (; Reason: Trauma; with Pain; Clinical Question(s): Fracture; Special Instructions: This is a protocol film and radiologist should call any findings to the Charge Nurse COMPARISONS: 02/25/2012 TECHNIQUE: AP, lateral, oblique and stress views of the right wrist were obtained. FINDINGS: There is no fracture or dislocation. Normal radiocarpal alignment is maintained. Mild arthritic changes throughout the carpus and at the base of the thumb. No retained radiodense foreign body. IMPRESSION: No fracture or dislocation. Mild arthritic changes. WSN: [id number] Ordering Physician: Lauren Kasper Dictated By: Ramon Jara MD Dictated Date/Time: 06/05/21 5:14 pm Reviewed By: Ramon Jara MD Signed By: Ramon Jara MD Signed Date/Time: 06/05/21 5:14 pm Transcribed By: JHOAN Transcribed Date/Time: 06/05/21 5:14 pm Vital Signs Most recent to oldest [Reference Range]: 1 2 Height 173 cm (06/05/21 10:06 PM) 173 cm (06/05/21 2:08 PM) Weight 91.6 kg (06/05/21 10:06 PM) 91.6 kg (06/05/21 2:08 PM) Oxygen Saturation [94-100 %] 97 % (06/05/21 10:06 PM) 100 % (06/05/21 2:08 PM) Pulse Rate [55-90 bpm] 56 bpm (06/05/21 10:06 PM) 73 bpm (06/05/21 2:08 PM) Body Mass Index [18.5-24.99] 30.61 *>HHI* (06/05/21 10:06 PM) 30.61 *>HHI* (06/05/21 2:08 PM) Blood Pressure [90-138/55-84 mm Hg] 198/ 77mm Hg *H* (06/05/21 10:06 PM) 218/89mm Hg *H* (06/05/21 2:08 PM) Respiratory Rate [16-30 br/min] 16 br/mi n (06/05/21 10:06 PM) 19 br/min (06/05/21 2:08 PM) Temperature [96.8-100.4 DegF] 97.7 DegF (06/05/21 10:06 PM) 97.9 DegF (06/05/21 2:08 PM) Mode of Delivery (Oxygen) Room air (06/05/21 10:06 PM) Room air (06/05/21 2:08 PM) Blood pressure sites Arm, left (06/05/21 10:06 PM) Arm, left (06/05/21 2:08 PM) Temperature Route Oral (06/05/21 10:06 PM) Oral (06/05/21 2:08 PM) Dry Weight 91.6 kg (06/05/21 10:06 PM) 91.6 kg (06/05/21 2:08 PM) Weight Obtained Via Standing scale (06/05/21 2:08 PM) Dry Weight Obtained Via Standing scale (06/05/21 2:08 PM) Social History Social History Type Response Smoking Status Never smoker; Tobacc o user in household: No entered on: 07/16/13 Sex
--- OUTSIDE RECORDS SUMMARY | 2023-04-04 06:07 | XMS_ITS | Continuity of Care Document ---
Author Name Unknown Organization [facility] Address [address] [place] [address]- Care Team Providers Care Sample Examiner Name Role Phone Roseline Ortega MD Primary Care Physician En[place] [facility] [place] Date(s): 08/22/22 - 09/27/22 [facility] [address] [place] [address]- Attending Physician: Eder Flores DO Admitting Physician: Eder Flores DO Referring Physician: Roseline Ortega MD Allergies, Adverse Reactions, Alerts Substance Reaction Severity Status metFORMIN myalgia Active Immunizations Given and Recorded Vaccine Date Status Refusal Reason [id number] 12y+ bivalent booster vax 02/16/22 Recorded SARS-CoV-2 [...] tolerated inj. without complications....CO 2Result Comment: [facility] 85733-010-40 Pt tolerated vaccine without incident...NH 3Result Comment: [id number] 4Result Comment: [12/20/2017] [facility] 53144-275-60 5Result Comment: [12/18/2012] given w/o incidense...mh 6Admin Note: at work 7Result Comment: [facility] [address]-1 Pt tolerated vaccine without incident...NH 8Admin Note: GIVEN W/O INCEDENT Medications albuterol CFC free 90 mcg/inh inhalation aerosol 2, puffs, Inhalation, Every 6 hours, PRN, # 8.5 Gm, Refills 0, Tot. Refills 0, Maintenance, 03/10/22 15:49:00 EST, Route to Pharmacy Electronically, [id number], [facility] #[id number], 173, cm, 03/10/22 15:20:00 EST, [place]... Start Date: 03/10/22 Stop Date: 04/09/22 Status: Ordered aspirin 81 mg oral tablet 1 tablet = 81 mg, By Mouth, Daily, # 30 tablet, 0 Refills, Maintenance, 05/20/14 12:11:28, Tablet Start Date: 05/20/14 Status: Ordered atorvastatin 20 mg oral tablet 1 tablet, By Mouth, Daily, # 90 tablet, 1 Refills, 09/26/22 11:55:00 EDT, [facility] #[id number], 173, cm, 08/16/22 8:14:00 EDT, Height, 86, kg, 08/14/22 3:21:00 EDT, Dry Weight Start Date: 09/26/22 Status: Ordered chlorthalidone 50 mg oral tablet 2 tablet, By Mouth, Daily, # 180 tablet, 0 Refills, [facility] #40615, 173, cm, 06/21/21 13:45:00 EDT, Height, 91.6, kg, 04/03/22 22:06:00 EDT, Dry Weight Start Date: 09/29/21 Status: Ordered FeroSul 325 mg oral tablet 1 tablet, By Mouth, Daily, # 100 tablet, 1 Refills, Maintenance, 07/23/20 12:40:00 EDT, [facility] #52550, 174, cm, 06/10/20 10:35:00 EDT, Height, 90.2, [...] Gm, 0 Refills, Maintenance, 03/10/22 15:48:00 EST, [place], [facility] #62111, Partial fill upon patient request if the [...] tablet, 1 Refills, Maintenance, 09/26/22 11:55:00 EDT, [facility] #13843, dose increased from 5 mg, 173, cm, 08/16/22 8:14:00 EDT, Height, 86, kg, 08/14/22 3:21:00 EDT, Dry Weight Start Date: 09/26/22 Stop Date: 03/25/23 Status: Ordered lidocaine 5% topical film 1 patch, Topically, Daily, PRN Pain , Mild, remove after 12 hours, # 13 each, 0 Refills, Maintenance, 06/05/21 21:29:00 EDT, Film, [facility] #[id number], Partial fill upon patient request if the prescription is for a schedule II opioid drug., 1... Start Date: 06/05/21 Status: Ordered losartan 100 mg oral tablet 1 tablet, By Mouth, Daily, # 90 tablet, 1 Refills, Maintenance, 08/08/22 20:35:00 EDT, [facility] #42169, 173, cm, 07/26/22 9:01:00 EDT, Height, 91.6, kg, 06/05/21 22:06:00 EDT, Dry Weight Start Date: 08/08/22 Status: Ordered Metoprolol Succinate ER 50 mg oral tablet, extended release 1 tablet = 50 mg, By Mouth, Daily, # 90 tablet, 1 Refills, Maintenance, 09/26/22 11:55:00 EDT, ER Tablet, [facility] #32023, 173, cm, 08/16/22 8:14:00 EDT, Height, 86, [...] Primary Care Member Role: PCP Address: Address: [address] [place] [address] Adult [facility] [place] [address]- Care Team Related Persons Name: DELIA STOLL Address: [place] [address] Name: LYNNE STOLL Address: home [address] [place] [address]
--- OUTSIDE RECORDS SUMMARY | 2023-04-04 06:07 | XMS_ITS | Continuity of Care Document ---
Author Name Unknown Organization [facility] Address [address] [place] [address]- Care Team Providers Care Quality Assurance Supervisor Final Name Role Phone Roseline Ortega MD Primary Care Physician Encounter [facility] Date(s): 12/06/22 - 01/05/23 [facility] [address] [place], [place] [address] Allergies, Adverse Reactions, Alerts Substance Reaction Severity Status metFORMIN myalgia Active Immunizations Given and Recorded Vaccine Date Status Refusal Reason [id number] 12y+ bivalent booster vax 02/16/22 Recorded SARS-CoV-2 [...] pt. tolerated inj. without complications....CO 2Result Comment: [facility] 42801-241-52 Pt tolerated vaccine without incident...NH 3Result Comment: [id number] 4Result Comment: [12/20/2017] [facility] 53734-993-95 5Result Comment: [12/18/2012] given w/o incidense...mh 6Admin Note: at work 7Result Comment: [facility] [address]-7 Pt tolerated vaccine without incident...NH 8Admin Note: [...] 12/06/22 15:50:00 EDT, Route to Pharmacy Electronically, [id number], [facility] #46529, 173, cm, 08/16/22 8:14:00 EDT, [place]... Start [...] 90 tablet, 0 Refills, 12/06/22 15:50:00 EDT, [facility] #02296, 173, cm, 08/16/22 8:14:00 EDT, Height, 86, [...] tablet, 1 Refills, Maintenance, 07/23/20 12:40:00 EDT, [facility] #[id number], 174, cm, 06/10/20 10:35:00 EDT, Height, 90.2, [...] Gm, 0 Refills, Maintenance, 03/10/22 15:48:00 EST, [place], [facility] #75053, Partial fill upon patient request if the [...] tablet, 1 Refills, Maintenance, 09/26/22 11:55:00 EDT, [facility] #58074, dose increased from 5 mg, 173, cm, 08/16/22 8:14:00 EDT, Height, 86, kg, 08/14/22 3:21:00 EDT, Dry Weight Start Date: 09/26/22 Stop Date: 03/25/23 Status: Ordered losartan 100 mg oral tablet 1 tablet, By Mouth, Daily, # 90 tablet, 1 Refills, Maintenance, 08/08/22 20:35:00 EDT, [facility] #62412, 173, cm, 07/26/22 9:01:00 EDT, Height, 91.6, kg, 06/05/21 22:06:00 EDT, Dry Weight Start Date: 08/08/22 Status: Ordered Metoprolol Succinate ER 50 mg oral tablet, extended release 1 tablet = 50 mg, By Mouth, Daily, # 90 tablet, 0 Refills, Maintenance, 12/06/22 15:50:00 EDT, ER Tablet, [facility] #27094, 173, cm, 08/16/22 8:14:00 EDT, Height, 86, [...] Team Personnel Name: Roseline Ortega MD Position: [facility] Physician - Primary Care Member Role: PCP Address: Address: [address] [place] [address] Adult & Pediatric [address] Care Team Related Persons Name: DELIA STOLL Address: [place] [address] Name: LYNNE STOLL Address: [address] [address]
--- OUTSIDE RECORDS SUMMARY | 2023-04-04 06:07 | XMS_ITS | Continuity of Care Document ---
Author Name Unknown Organization [facility] Address [address] [place] [address]- Care Team Providers Care Dice Person Name Role Phone Roseline Ortega MD Primary Care Physician [phone] Encounter [facility] [place] Date(s): 09/29/22 - 12/21/22 [facility] [address] [place], [place] [address] Attending Physician: Roseline Ortega MD Allergies, Adverse Reactions, Alerts Substance Reaction Severity Status metFORMIN myalgia Active Immunizations Given and Recorded Vaccine Date Status Refusal Reason [id number] 12y+ bivalent booster vax 02/16/22 Recorded SARS-CoV-2 [...] tolerated inj. without complications....CO 2Result Comment: [facility] 52390-863-51 Pt tolerated vaccine without incident...NH 3Result Comment: [id number] 4Result Comment: [12/20/2017] [facility] [id number] 5Result Comment: [12/18/2012] given w/o incidense...mh 6Admin Note: at work 7Result Comment: [facility] [address]-3 Pt tolerated vaccine without incident...NH 8Admin Note: [...] 12/06/22 15:50:00 EDT, Route to Pharmacy Electronically, [id number], [facility] #[id number], 173, cm, 08/16/22 8:14:00 EDT, [place]... Start [...] 90 tablet, 0 Refills, 12/06/22 15:50:00 EDT, [facility] #47711, 173, cm, 08/16/22 8:14:00 EDT, Height, 86, [...] tablet, 1 Refills, Maintenance, 07/23/20 12:40:00 EDT, [facility] #91889, 174, cm, 06/10/20 10:35:00 EDT, Height, 90.2, [...] Gm, 0 Refills, Maintenance, 03/10/22 15:48:00 EST, [place], [facility] #82164, Partial fill upon patient request if the [...] tablet, 1 Refills, Maintenance, 09/26/22 11:55:00 EDT, [facility] #49189, dose increased from 5 mg, 173, cm, 08/16/22 8:14:00 EDT, Height, 86, kg, 08/14/22 3:21:00 EDT, Dry Weight Start Date: 09/26/22 Stop Date: 03/25/23 Status: Ordered losartan 100 mg oral tablet 1 tablet, By Mouth, Daily, # 90 tablet, 1 Refills, Maintenance, 08/08/22 20:35:00 EDT, [facility] #92498, 173, cm, 07/26/22 9:01:00 EDT, Height, 91.6, kg, 06/05/21 22:06:00 EDT, Dry Weight Start Date: 08/08/22 Status: Ordered Metoprolol Succinate ER 50 mg oral tablet, extended release 1 tablet = 50 mg, By Mouth, Daily, # 90 tablet, 0 Refills, Maintenance, 12/06/22 15:50:00 EDT, ER Tablet, [facility] #19194, 173, cm, 08/16/22 8:14:00 EDT, Height, 86, [...] No entered on: 07/16/13 Sex Note * Cardinal , Cait: PERFORM, SIGN, VERIFY Event Display: Patient Education/Instruction Authored Date: [id number] [facility] *No [facility] Clinical Summary Name STOLL, KRISTY Age 82 Years 1940 PCP Roseline Ortega MD PCP Visit Date Additional Instructions: Scheduled Appointments?? Future Appointments ?*No??[facility]Adult[facility]Ped ?[address]??[place],??[place],??[address] ?Phone:??--?Fax:??-- ?Appt. Date:??11/21/2022?11:10 AM ?Scheduled Provider:??Roseline Ortega MD Follow-Up Instructions ?? Diagnosis Medications: Please continue your medications until treatment [...] Daily for 90Days. Refills: 1. Next Dose: [address]-3 Polyunsaturated Fatty Acids (Fish Oil 1000 mg oral capsule) 1 capsule Oral twice a day. Next Dose: Allergy Info:?? metFORMIN Medications Given This Visit Future Orders ?No future orders Vital Signs Height Weight BMI Blood Pressure / Temperature Pulse Rate Respiratory Rate 02 Sat Mode of Delivery / You can now view a summary of your hospital visit from the comfort of your home through a free online portal called [employer]. [employer] is a website that allows you to securely view your medical information including discharge summary, medications and follow-up visits. ??You can alsosend a secure electronic message to your doctor???s office to request appointments, renew medications or just ask a question. You can enroll at [email or web address] or register during your next office visit. [...] primary care provider, you may find a [facility] provider by calling [facility] Link at [phone]. [facility], in keeping with [facility] guidance, no longer requires face masks for [...] Personnel Name: Jordan STOCKTON, Roseline Frey Position: [facility] Physician - Primary Care Member Role: PCP Address: Address: [address] [place] [address] Adult [place] [address]- Care Team Related Persons Name: DELIA STOLL Address: [place] [address] Name: LYNNE STOLL Address: [address] [address]
--- OUTSIDE RECORDS SUMMARY | 2023-04-04 06:07 | XMS_ITS | Continuity of Care Document ---
Author Name Unknown Organization [facility] Address [address] [place] [address]- Care Team Providers Care Fourth Officer Name Role Phone Roseline Ortega MD Primary Care Physician [phone] [facility]04[place] - 07/02/20 [facility] [address] [place], [place] [address] Attending Physician: Roseline Ortega MD Allergies, Adverse [...] Adult (oldterm) 7 07/26/10 Given 1Result Comment: [facility] [address]-8 Pt tolerated vaccine without incident...NH 2Result Comment: [facility] 06928-686-71 Pt tolerated vaccine without incident...NH 3Result Comment: [id number] 4Result Comment: [12/20/2017] [facility] [id number] 5Result Comment: [12/18/2012] given w/o incidense...mh 6Admin [...] 0 Refills, Maintenance, 06/10/20 10:45:00 EDT, Tablet, [facility] #13108, simvastatin discontinued, lipids not at goal, 174, cm, 06/10/20 10:35:00 EDT, Height, 90.2, kg, 04/10/19 10:04:00 EST,... Start Date: 06/10/20 Stop Date: 09/08/20 Status: Ordered chlorthalidone 50 mg oral tablet 2 tablet = 100 mg, By Mouth, Daily, # 180 tablet, 3 Refills, Maintenance, 02/25/20 12:03:00 EST, Tablet, [facility] #62117, dose increased from 50 mg daily, 174, cm, 02/25/20 11:26:00 EST, Height, 90.2, kg, 04/10/19 10:04:00 EST, Dry Weight Start Date: 02/25/20 Stop Date: 02/19/21 Status: Ordered FeroSul 325 mg oral tablet 1 tablet, By Mouth, Daily, # 100 tablet, 0 Refills, Maintenance, 11/12/19 14:03:00 EDT, [facility] #79051, 174, cm, 10/24/19 20:33:00 EDT, Height, 90.2, [...] tablet, 3 Refills, Maintenance, 04/10/19 10:26:00 EST, [facility] #14011, dose increased from 5 mg, 172, cm, 04/10/19 10:04:00 EST, Height, 90.2, kg, 04/10/19 10:04:00 EST, Dry Weight Start Date: 04/10/19 Stop Date: 04/04/20 Status: Ordered losartan 100 mg oral tablet 1 tablet = 100 mg, By Mouth, Daily, # 90 tablet, 0 Refills, Maintenance, 02/16/20 7:38:00 EST, Tablet, [facility] #00712, change from losartan- hctz, 174, cm, 01/21/20 10:35:00 EST, Height, 90.2, kg, 04/10/19 10:04:00 EST, Dry Weight Start Date: 02/16/20 Status: Ordered Metoprolol Succinate ER 50 mg oral tablet, extended release 1 tablet = 50 mg, By Mouth, Daily, # 90 tablet, 0 Refills, Maintenance, 02/16/20 7:38:00 EST, ER Tablet, [facility] #48089, 174, cm, 01/21/20 10:35:00 EST, Height, 90.2, [...]
--- OUTSIDE RECORDS SUMMARY | 2023-04-04 06:07 | XMS_ITS | Continuity of Care Document ---
Author Name Unknown Organization [facility] Address [address] [place] [address]- Care Team Providers Care Forklift Mechanic Name Role Phone Roseline Ortega MD Primary Care Physician [phone] Encounter [facility] [place] Date(s): 12/12/19 - 12/19/19 [facility] [address] [place] [address]- [facility] Attending Physician: Roseline Ortega MD Allergies, Adverse [...] Adult (oldterm) 6 07/26/10 Given 1Result Comment: [facility] 79273-398-84 Pt tolerated vaccine without incident...NH 2Result Comment: [id number] 3Result Comment: [12/20/2017] [facility] [id number] 4Result Comment: [12/18/2012] given w/o incidense...mh 5Admin [...] tablet, 0 Refills, Maintenance, 11/12/19 14:03:00 EDT, [facility] #26774, 174, cm, 10/24/19 20:33:00 EDT, Height, 90.2, [...] tablet, 3 Refills, Maintenance, 04/10/19 10:26:00 EST, [facility] #60694, dose increased from 5 mg, 172, cm, 04/10/19 10:04:00 EST, Height, 90.2, kg, 04/10/19 10:04:00 EST, Dry Weight Start Date: 04/10/19 Stop Date: 04/04/20 Status: Ordered losartan 100 mg oral tablet 1 tablet = 100 mg, By Mouth, Daily, # 90 tablet, 0 Refills, Maintenance, 11/12/19 11:16:00 EDT, Tablet, [facility] #57889, change from losartan-hctz, 174, cm, 10/24/19 20:33:00 EDT, Height,90.2, kg, 04/10/19 10:04:00 EST, Dry Weight Start Date: 11/12/19 Status: Ordered Metoprolol Succinate ER 50 mg oral tablet, extended release 1 tablet = 50 mg, By Mouth, Daily, # 90 tablet, 0 Refills, Maintenance, 11/12/19 11:16:00 EDT, ER Tablet, [facility] #[id number], 174, cm, 10/24/19 20:33:00 EDT, Height, 90.2, kg, 04/10/19 10:04:00 EST, Dry Weight Start Date: 11/12/19 Stop Date: 02/10/20 Status: Ordered NIFEdipine 60 mg oral tablet, extended release 60 mg, 1, tablet, By Mouth, Daily, # 90 tablet, Refills 0, Tot. Refills 0, Maintenance, 06/12/19 10:13:00 EDT, Route to Pharmacy Electronically, [facility] #[id number], 172, cm, 04/10/19 10:04:00 EST, Height, 90.2, kg, 04/10/19 10:04:00 EST, Dry... Start Date: 06/12/19 Stop Date: 09/10/19 Status: Ordered simvastatin 40 mg oral tablet 40 mg, 1, tablet, By Mouth, Daily at bedtime, # 90 tablet, Refills 0, Tot. Refills 0, Maintenance, 11/12/19 11:16:00 EDT, Route to Pharmacy Electronically, [facility] #[id number], 174, cm, 10/24/19 20:33:00 EDT, Height, 90.2, [...] Range]: 1 2 3 Height 174 cm (12/12/19 10:10 AM) 174 cm (12/12/19 10:09 AM) 174 cm (12/12/19 10:09 AM) Weight 88.1 kg (12/12/19 9:46 AM) Oxygen Saturation [94-100 %] 98 % (12/12/19 9:46 AM) Pulse Rate [55-90 bpm] 62 bpm (12/12/19 9:46 AM) Body Mass Index [18.5-24.99] 29.1 *H* (12/12/19 9:46 AM) Blood Pressure [90-138/55-84 mm Hg] 140/72mm Hg *H* (12/12/19 10:10 AM) 140/80mm Hg *H* (12/12/19 10:09 AM) 140/74mm Hg *H* (12/12/19 10:09 AM) Temperature [96.8-100.4 DegF] 93.1 DegF *L* (12/12/19 9:46 AM) Mode of Delivery (Oxygen) Room air (12/12/19 9:46 AM) Blood pressure sites Arm, left (12/12/19 10:10 AM) Arm, left (12/12/19 10:09 AM) Arm, left (12/12/19 10:09 AM) Temperature Route Temporal (12/12/19 9:46 AM) Weight Obtained Via Standing scale (12/12/19 9:46 AM) Social History Social History Type Response Smoking Status Never smoker; Tobacc o user in household: No entered on: 07/16/13 Sex
--- OUTSIDE RECORDS SUMMARY | 2023-04-04 06:07 | XMS_ITS | Continuity of Care Document ---
Author Name Unknown Organization [facility] Address [address] [place] [address]- Care Team Providers Care Indirect Fire Infantryman Name Role Phone Jordan STOCKTON, Roseline Frey Primary Care Physician [place] [facility] [place] 08[place]/22 [facility] [address] [place], [place] [address] Allergies, Adverse Reactions, Alerts Substance Reaction Severity Status metFORMIN myalgia Active Immunizations Given and Recorded Vaccine Date Status Refusal Reason [id number] 12y+ bivalent booster vax 02/16/22 Recorded SARS-CoV-2 [...] without complications....[place] 2Result Comment: [facility] 07374-663-86 Pt tolerated vaccine without incident...NH 3Result Comment: [id number] 4Result Comment: [12/20/2017] [facility] 54391-062-78 5Result Comment: [12/18/2012] given w/o incidense...mh 6Admin Note: at work 7Result Comment: [facility] [address]-1 Pt tolerated vaccine without incident...NH 8Admin Note: GIVEN W/O INCEDENT Medications albuterol CFC free 90 mcg/inh inhalation aerosol 2, puffs, Inhalation, Every 6 hours, PRN, # 8.5 Gm, Refills 0, Tot. Refills 0, Maintenance, 03/10/22 15:49:00 EST, Route to Pharmacy Electronically, [id number], [facility] #[id number], 173, cm, 03/10/22 15:20:00 EST, Hei... Start Date: 03/10/22 Stop Date: 04/09/22 Status: Ordered aspirin 81 mg oral tablet 1 tablet = 81 mg, By Mouth, Daily, # 30 tablet, 0 Refills, Maintenance, 05/20/14 12:11:28, Tablet Start Date: 05/20/14 Status: Ordered atorvastatin 20 mg oral tablet 1 tablet, By Mouth, Daily, # 90 tablet, 1 Refills, 10/11/21 10:22:00 EDT, [facility] #[id number], 173, cm, 10/11/21 10:04:00 EDT, Height, 91.6, kg, 06/05/21 22:06:00 EDT, Dry Weight Start Date: 10/11/21 Status: Ordered chlorthalidone 50 mg oral tablet 2 tablet, By Mouth, Daily, # 180 tablet, 0 Refills, [facility] #[id number], 173, cm, 06/21/21 13:45:00 EDT, Height, 91.6, kg, 06/05/21 22:06:00 EDT, Dry Weight Start Date: 09/29/21 Status: Ordered FeroSul 325 mg oral tablet 1 tablet, By Mouth, Daily, # 100 tablet, 1 Refills, Maintenance, 07/23/20 12:40:00 EDT, [facility] #40228, 174, cm, 06/10/20 10:35:00 EDT, Height, 90.2, [...] Gm, 0 Refills, Maintenance, 03/10/22 15:48:00 EST, [place], [facility] #[id number], Partial fill upon patient request if the [...] tablet, 1 Refills, Maintenance, 10/11/21 10:22:00 EDT, [facility] #[id number], dose increased from 5 mg, 173, cm, 10/11/21 10:04:00 EDT, Height, 91.6, kg, 06/05/21 22:06:00 EDT, Dry Weight Start Date: 10/11/21 Stop Date: 04/09/22 Status: Ordered lidocaine 5% topical film 1 patch, Topically, Daily, PRN Pain , Mild, remove after 12 hours, # 13 each, 0 Refills, Maintenance, 06/05/21 21:29:00 EDT, [place], [facility] #[id number], Partial fill upon patient request if the prescription is for a schedule II opioid drug., 1... Start Date: 06/05/21 Status: Ordered losartan 100 mg oral tablet 1 tablet, By Mouth, Daily, # 90 tablet, 1 Refills, Maintenance, 08/08/22 20:35:00 EDT, [facility] #86166, 173, cm, 07/26/22 9:01:00 EDT, Height, 91.6, kg, 06/05/21 22:06:00 EDT, Dry Weight Start Date: 08/08/22 Status: Ordered Metoprolol Succinate ER 50 mg oral tablet, extended release 1 tablet = 50 mg, By Mouth, Daily, # 90 tablet, 1 Refills, Maintenance, 10/11/21 10:22:00 EDT, ER Tablet, [facility] #[id number], 173, cm, 10/11/21 10:04:00 EDT, Height, 91.6, [...] Primary Care Member Role: PCP Address: Address: [address] [place] [address] Adult [place] [address]- Care Team Related Persons Name: DELIA STOLL Address: [place] [address] Name: LYNNE STOLL Address: home [address] [place] [id number]
--- OUTSIDE RECORDS SUMMARY | 2023-04-04 06:07 | XMS_ITS | Continuity of Care Document ---
Author Name Unknown Organization [facility] Address [address] [place] [address]- Care Team Providers Care Sawyer Cork Slabs Name Role Phone Jordan STOCKTON, Roseline Frey Primary Care Physician En[place] [facility] [place] Date(s): 10/19/20 - 11/18/20 [facility] [address] [place], [place] [address] Allergies, Adverse Reactions, Alerts Substance [...] Adult (oldterm) 7 07/26/10 Given 1Result Comment: [facility] [address]-6 Pt tolerated vaccine without incident...NH 2Result Comment: [facility] 11415-901-05 Pt tolerated vaccine without incident...NH 3Result Comment: [id number] 4Result Comment: [12/20/2017] [facility] 94011-448-78 5Result Comment: [12/18/2012] given w/o incidense...mh 6Admin [...] 1 Refills, Maintenance, 09/10/20 15:34:00 EDT, Tablet, [facility] #06977, simvastatin discontinued, lipids not at goal, 174, cm, 06/10/20 10:35:00 EDT, Height, 90.2, kg, 04/10/19 10:04:00 EST,... Start Date: 09/10/20 Stop Date: 03/09/21 Status: Ordered chlorthalidone 50 mg oral tablet 2 tablet = 100 mg, By Mouth, Daily, # 180 tablet, 3 Refills, Maintenance, 02/25/20 12:03:00 EST, Tablet, [facility] #25760, dose increased from 50 mg daily, 174, cm, 02/25/20 11:26:00 EST, Height, 90.2, kg, 04/10/19 10:04:00 EST, Dry Weight Start Date: 02/25/20 Stop Date: 02/19/21 Status: Ordered FeroSul 325 mg oral tablet 1 tablet, By Mouth, Daily, # 100 tablet, 1 Refills, Maintenance, 07/23/20 12:40:00 EDT, [facility] #[id number], 174, cm, 06/10/20 10:35:00 EDT, Height, 90.2, [...] tablet, 1 Refills, Maintenance, 07/23/20 12:39:00 EDT, [facility] #19084, dose increased from 5 mg, 174, cm, 06/10/20 10:35:00 EDT, Height, 90.2, kg, 04/10/19 10:04:00 EST, Dry Weight Start Date: 07/23/20 Stop Date: 01/19/21 Status: Ordered losartan 100 mg oral tablet 1 tablet = 100 mg, By Mouth, Daily, # 90 tablet, 1 Refills, Maintenance, 11/17/20 14:27:00 EDT, Tablet, [facility] #64849, change from losartan-hctz, 174, cm, 11/17/20 13:45:00 EDT, Height,90.2, kg, 04/10/19 10:04:00 EST, Dry Weight Start Date: 11/17/20 Status: Ordered Metoprolol Succinate ER 50 mg oral tablet, extended release 1 tablet = 50 mg, By Mouth, Daily, # 90 tablet, 1 Refills, Maintenance, 07/23/20 12:39:00 EDT, ER Tablet, [facility] #03609, 174, cm, 06/10/20 10:35:00 EDT, Height, 90.2, [...]
--- OUTSIDE RECORDS SUMMARY | 2023-04-04 06:08 | XMS_ITS | Continuity of Care Document ---
Author Name Unknown Organization [facility] Address [address] [place] [address]- Care Team Providers Care Copy Director Name Role Phone Roseline Ortega MD Primary Care Physician Encounter [facility] Date(s): 12/27/22 - 01/26/23 [facility] [address] [place], [place] [address] Allergies, Adverse Reactions, Alerts Substance Reaction Severity Status metFORMIN myalgia Active Immunizations Given and Recorded Vaccine Date Status Refusal Reason [id number] 12y+ bivalent booster vax 02/16/22 Recorded SARS-CoV-2 [...] without complications....[place] 2Result Comment: [facility] 95354-237-45 Pt tolerated vaccine without incident...NH 3Result Comment: [id number] 4Result Comment: [12/20/2017] [facility] 26406-588-38 5Result Comment: [12/18/2012] given w/o incidense...mh 6Admin Note: at work 7Result Comment: [facility] [address]-3 Pt tolerated vaccine without incident...NH 8Admin Note: [...] 12/06/22 15:50:00 EDT, Route to Pharmacy Electronically, [id number], [facility] #[id number], 173, cm, 08/16/22 8:14:00 EDT, .. Start [...] 90 tablet, 0 Refills, 12/06/22 15:50:00 EDT, [facility] #87185, 173, cm, 08/16/22 8:14:00 EDT, Height, 86, [...] tablet, 1 Refills, Maintenance, 07/23/20 12:40:00 EDT, [facility] #03953, 174, cm, 06/10/20 10:35:00 EDT, Height, 90.2, [...] Gm, 0 Refills, Maintenance, 03/10/22 15:48:00 EST, [place], [facility] #[id number], Partial fill upon patient request if the [...] tablet, 1 Refills, Maintenance, 09/26/22 11:55:00 EDT, [facility] #87573, dose increased from 5 mg, 173, cm, 08/16/22 8:14:00 EDT, Height, 86, kg, 08/14/22 3:21:00 EDT, Dry Weight Start Date: 09/26/22 Stop Date: 03/25/23 Status: Ordered losartan 100 mg oral tablet 1 tablet, By Mouth, Daily, # 90 tablet, 1 Refills, Maintenance, 08/08/22 20:35:00 EDT, [facility] #08334, 173, cm, 07/26/22 9:01:00 EDT, Height, 91.6, kg, 06/05/21 22:06:00 EDT, Dry Weight Start Date: 08/08/22 Status: Ordered Metoprolol Succinate ER 50 mg oral tablet, extended release 1 tablet = 50 mg, By Mouth, Daily, # 90 tablet, 0 Refills, Maintenance, 12/06/22 15:50:00 EDT, ER Tablet, [facility] #02328, 173, cm, 08/16/22 8:14:00 EDT, Height, 86, [...] Personnel Name: Jordan STOCKTON, Roseline Frey Position: [facility] Physician - Primary Care Member Role: PCP Address: Address: [address] [place] [address] Adult [place] [address]- Care Team Related Persons Name: DELIA STOLL Address: [place] [address] Name: LYNNE STOLL Address: [address] [address]
--- OUTSIDE RECORDS SUMMARY | 2023-04-04 06:08 | XMS_ITS | Continuity of Care Document ---
Author Name Unknown Organization [facility] Address [address] [place] [address]- Care Team Providers Care Stock Or Delivery Clerk Name Role Phone Jordan STOCKTON, Roseline Frey Primary Care Physician [phone] Encounter [facility] Date(s): 06/12/19 - 06/19/19 [facility] [address] [place] [address]- [facility] Encounter Diagnosis Diabetes mellitus type II(Discharge Diagnosis) - 06/12/19 Hyperlipidemia(Discharge Diagnosis) - 06/12/19 Hypertension(Discharge Diagnosis) - 06/12/19 Anemia(Discharge Diagnosis) - 06/12/19 Attending Physician: Roseline Ortega MD Allergies, Adverse [...] Adult (oldterm) 5 07/26/10 Given 1Result Comment: [id number] 2Result Comment: [12/20/2017] [facility] 31316-128-83 3Result Comment: [12/18/2012] given w/o incidense...mh 4Admin [...] tablet, 3 Refills, Maintenance, 04/10/19 10:26:00 EST, [facility] #08595, dose increased from 5 mg, 172, cm, [...] 06/12/19 10:13:00 EDT, Route to Pharmacy Electronically, [facility] #[id number], 172, cm, 04/10/19 10:04:00 EST, Height, 90.2, kg, 04/10/19 10:04:00 EST, Dry... Start Date: 06/12/19 Stop Date: 09/10/19 Status: Ordered simvastatin 40 mg oral tablet 40 mg, 1, tablet, By Mouth, Daily at bedtime, # 90 tablet, Refills 3, Tot. Refills 3, Maintenance, 10/31/18 9:36:28 EDT, Route to Pharmacy Electronically, [id number], [facility] #[id number] Start Date: 10/31/18 Status: Ordered Vitamin B12 [...] type II(Confirmed) Active Hyperlipidemia(Confirmed) Active Hypertension(Confirmed) Active Diagnosis Diagnosis Type Effective Dates Health Status Clinical Service Informant Diabetes mellitus type II Discharge Diagnosis 06/12/19 Hyperlipidemia Discharge Diagnosis 06/12/19 Hypertension Discharge Diagnosis 06/12/19 Anemia Discharge Diagnosis 06/12/19 Social History Social History Type Response Smoking Status Never smoker; Tobacc o user in household: No entered on: 07/16/13 Sex
--- OUTSIDE RECORDS SUMMARY | 2023-04-04 06:08 | XMS_ITS | Continuity of Care Document ---
Author Name Unknown Organization [facility] Address [address] [place] [address]- Care Team Providers Care Amf Mechanic Name Role Phone Roseline Ortega MD Primary Care Physician [place] [facility] [place] 06/17/20 [facility] [address] [place], [place] [address] Attending Physician: Roseline Ortega [...] Adult (oldterm) 7 07/26/10 Given 1Result Comment: [facility] [address]-2 Pt tolerated vaccine without incident...NH 2Result Comment: [facility] 16012-394-56 Pt tolerated vaccine without incident...NH 3Result Comment: [id number] 4Result Comment: [12/20/2017] [facility] 58619-759-30 5Result Comment: [12/18/2012] given w/o incidense...mh 6Admin [...] 0 Refills, Maintenance, 06/10/20 10:45:00 EDT, Tablet, [facility] #55195, simvastatin discontinued, lipids not at goal, 174, cm, 06/10/20 10:35:00 EDT, Height, 90.2, kg, 04/10/19 10:04:00 EST,... Start Date: 06/10/20 Stop Date: 09/08/20 Status: Ordered chlorthalidone 50 mg oral tablet 2 tablet = 100 mg, By Mouth, Daily, # 180 tablet, 3 Refills, Maintenance, 02/25/20 12:03:00 EST, Tablet, [facility] #95648, dose increased from 50 mg daily, 174, cm, 02/25/20 11:26:00 EST, Height, 90.2, kg, 04/10/19 10:04:00 EST, Dry Weight Start Date: 02/25/20 Stop Date: 02/19/21 Status: Ordered FeroSul 325 mg oral tablet 1 tablet, By Mouth, Daily, # 100 tablet, 0 Refills, Maintenance, 11/12/19 14:03:00 EDT, [facility] #53321, 174, cm, 10/24/19 20:33:00 EDT, Height, 90.2, [...] tablet, 3 Refills, Maintenance, 04/10/19 10:26:00 EST, [facility] #69744, dose increased from 5 mg, 172, cm, 04/10/19 10:04:00 EST, Height, 90.2, kg, 04/10/19 10:04:00 EST, Dry Weight Start Date: 04/10/19 Stop Date: 04/04/20 Status: Ordered losartan 100 mg oral tablet 1 tablet = 100 mg, By Mouth, Daily, # 90 tablet, 0 Refills, Maintenance, 02/16/20 7:38:00 EST, Tablet, [facility] #92742, change from losartan- hctz, 174, cm, 01/21/20 10:35:00 EST, Height, 90.2, kg, 04/10/19 10:04:00 EST, Dry Weight Start Date: 02/16/20 Status: Ordered Metoprolol Succinate ER 50 mg oral tablet, extended release 1 tablet = 50 mg, By Mouth, Daily, # 90 tablet, 0 Refills, Maintenance, 02/16/20 7:38:00 EST, ER Tablet, [facility] #00900, 174, cm, 01/21/20 10:35:00 EST, Height, 90.2, [...] [Reference Range]: 1 2 Height 174 cm (06/10/20 10:35 AM) 174 cm (06/10/20 10:22 AM) Weight 86 kg (06/10/20 10:22 AM) Oxygen Saturation [94-100 %] 98 % (06/10/20 10:22 AM) Pulse Rate [55-90 bpm] 51 bpm *L* (06/10/20 10:22 AM) Body Mass Index [18.5-24.99] 28.41 *H* (06/10/20 10:22 AM) Blood Pressure [90-138/55-84 mm Hg] 170/ 71mm Hg *H* (06/10/20 10:35 AM) 180/72mm Hg *H* (06/10/20 10:22 AM) Temperature [96.8-100.4 DegF] 97.7 DegF (06/10/20 10:22 AM) Mode of Delivery (Oxygen) Room air (06/10/20 10:22 AM) Blood pressure sites Arm, left (06/10/20 10:35 AM) Arm, left (06/10/20 10:22 AM) Temperature Route Temporal (06/10/20 10:22 AM) Weight Obtained Via Standing scale (06/10/20 10:22 AM) Social History Social History Type Response Smoking Status Never smoker; Tobacc o user in household: No entered on: 07/16/13 Sex
--- OUTSIDE RECORDS SUMMARY | 2023-04-04 06:08 | XMS_ITS | Continuity of Care Document ---
Author Name Unknown Organization [facility] Address [address] [place] [address]- Care Team Providers Care Health Information Assistant Name Role Phone Jordan STOCKTON, Roseline Frey Primary Care Physician Encounter [facility] [place] Date(s): 08/04/22 - 09/03/22 [facility] [address] [place], [place] [address] Allergies, Adverse Reactions, Alerts Substance Reaction Severity Status metFORMIN myalgia Active Immunizations Given and Recorded Vaccine Date Status Refusal Reason [id number] 12y+ bivalent booster vax 02/16/22 Recorded SARS-CoV-2 [...] [facility] 58399-159-45 Pt tolerated vaccine without incident...NH 3Result Comment: [id number] 4Result Comment: [12/20/2017] [facility] 63136-222-29 5Result Comment: [12/18/2012] given w/o incidense...mh 6Admin Note: at work 7Result Comment: [facility] [address]-6 Pt tolerated vaccine without incident...NH 8Admin Note: GIVEN W/O INCEDENT Medications albuterol CFC free 90 mcg/inh inhalation aerosol 2, puffs, Inhalation, Every 6 hours, PRN, # 8.5 Gm, Refills 0, Tot. Refills 0, Maintenance, 03/10/22 15:49:00 EST, Route to Pharmacy Electronically, [id number], [facility] #[id number], 173, cm, 03/10/22 15:20:00 EST, Hei... Start Date: 03/10/22 Stop Date: 04/09/22 Status: Ordered aspirin 81 mg oral tablet 1 tablet = 81 mg, By Mouth, Daily, # 30 tablet, 0 Refills, Maintenance, 05/20/14 12:11:28, Tablet Start Date: 05/20/14 Status: Ordered atorvastatin 20 mg oral tablet 1 tablet, By Mouth, Daily, # 90 tablet, 1 Refills, 10/11/21 10:22:00 EDT, [facility] #[id number], 173, cm, 10/11/21 10:04:00 EDT, Height, 91.6, kg, 06/05/21 22:06:00 EDT, Dry Weight Start Date: 10/11/21 Status: Ordered chlorthalidone 50 mg oral tablet 2 tablet, By Mouth, Daily, # 180 tablet, 0 Refills, [facility] #34498, 173, cm, 06/21/21 13:45:00 EDT, Height, 91.6, kg, 06/05/21 22:06:00 EDT, Dry Weight Start Date: 09/29/21 Status: Ordered FeroSul 325 mg oral tablet 1 tablet, By Mouth, Daily, # 100 tablet, 1 Refills, Maintenance, 07/23/20 12:40:00 EDT, [facility] #13011, 174, cm, 06/10/20 10:35:00 EDT, Height, 90.2, [...] Gm, 0 Refills, Maintenance, 03/10/22 15:48:00 EST, [place], [facility] #93690, Partial fill upon patient request if the [...] tablet, 1 Refills, Maintenance, 10/11/21 10:22:00 EDT, [facility] #60864, dose increased from 5 mg, 173, cm, 10/11/21 10:04:00 EDT, Height, 91.6, kg, 06/05/21 22:06:00 EDT, Dry Weight Start Date: 10/11/21 Stop Date: 04/09/22 Status: Ordered lidocaine 5% topical film 1 patch, Topically, Daily, PRN Pain , Mild, remove after 12 hours, # 13 each, 0 Refills, Maintenance, 06/05/21 21:29:00 EDT, [place], [facility] #[id number], Partial fill upon patient request if the prescription is for a schedule II opioid drug., 1... Start Date: 06/05/21 Status: Ordered losartan 100 mg oral tablet 1 tablet, By Mouth, Daily, # 90 tablet, 1 Refills, Maintenance, 08/08/22 20:35:00 EDT, [facility] #74249, 173, cm, 07/26/22 9:01:00 EDT, Height, 91.6, kg, 06/05/21 22:06:00 EDT, Dry Weight Start Date: 08/08/22 Status: Ordered Metoprolol Succinate ER 50 mg oral tablet, extended release 1 tablet = 50 mg, By Mouth, Daily, # 90 tablet, 1 Refills, Maintenance, 10/11/21 10:22:00 EDT, ER Tablet, [facility] #09684, 173, cm, 10/11/21 10:04:00 EDT, Height, 91.6, [...] Primary Care Member Role: PCP Address: Address: [address] [place] [address] Adult [place] [address]- Care Team Related Persons Name: DELIA STOLL Address: [place] [address] Name: LYNNE STOLL Address: home [address] [place] [id number]
--- OUTSIDE RECORDS SUMMARY | 2023-04-04 06:08 | XMS_ITS | Continuity of Care Document ---
Author Name Unknown Organization [facility] Address [address] [place] [address]- Care Team Providers Care Central Service Tech Name Role Phone Jordan STOCKTON, Roseline Frey Primary Care Physician [phone] Encounter [place] Date(s): 11/01/20 - 12/01/20 [facility] [address] [place], [place] [address] Allergies, Adverse Reactions, Alerts Substance [...] (oldterm) 7 07/26/10 Given 1Result Comment: [facility] [address]-6 Pt tolerated vaccine without incident...NH 2Result Comment: [facility] 92209-490-35 Pt tolerated vaccine without incident...NH 3Result Comment: [id number] 4Result Comment: [12/20/2017] [facility] 13082-209-07 5Result Comment: [12/18/2012] given w/o incidense...mh 6Admin [...] 1 Refills, Maintenance, 09/10/20 15:34:00 EDT, Tablet, [facility] #[id number], simvastatin discontinued, lipids not at goal, 174, cm, 06/10/20 10:35:00 EDT, Height, 90.2, kg, 04/10/19 10:04:00 EST,... Start Date: 09/10/20 Stop Date: 03/09/21 Status: Ordered chlorthalidone 50 mg oral tablet 2 tablet = 100 mg, By Mouth, Daily, # 180 tablet, 3 Refills, Maintenance, 02/25/20 12:03:00 EST, Tablet, [facility] #66836, dose increased from 50 mg daily, 174, cm, 02/25/20 11:26:00 EST, Height, 90.2, kg, 04/10/19 10:04:00 EST, Dry Weight Start Date: 02/25/20 Stop Date: 02/19/21 Status: Ordered FeroSul 325 mg oral tablet 1 tablet, By Mouth, Daily, # 100 tablet, 1 Refills, Maintenance, 07/23/20 12:40:00 EDT, [facility] #11785, 174, cm, 06/10/20 10:35:00 EDT, Height, 90.2, [...] tablet, 1 Refills, Maintenance, 07/23/20 12:39:00 EDT, [facility] #55691, dose increased from 5 mg, 174, cm, 06/10/20 10:35:00 EDT, Height, 90.2, kg, 04/10/19 10:04:00 EST, Dry Weight Start Date: 07/23/20 Stop Date: 01/19/21 Status: Ordered losartan 100 mg oral tablet 1 tablet = 100 mg, By Mouth, Daily, # 90 tablet, 1 Refills, Maintenance, 11/17/20 14:27:00 EDT, Tablet, [facility] #51313, change from losartan-hctz, 174, cm, 11/17/20 13:45:00 EDT, Height,90.2, kg, 04/10/19 10:04:00 EST, Dry Weight Start Date: 11/17/20 Status: Ordered Metoprolol Succinate ER 50 mg oral tablet, extended release 1 tablet = 50 mg, By Mouth, Daily, # 90 tablet, 1 Refills, Maintenance, 07/23/20 12:39:00 EDT, ER Tablet, [facility] #49184, 174, cm, 06/10/20 10:35:00 EDT, Height, 90.2, [...]
--- OUTSIDE RECORDS SUMMARY | 2023-04-04 06:08 | XMS_ITS | Continuity of Care Document ---
Author Name Unknown Organization [facility] Address [address] [place] [address]- Care Team Providers Care Field Foreman Name Role Phone Jordan STOCKTON, Roseline Frey Primary Care Physician [phone] Encounter [facility] Date(s): 05/17/21 - 05/24/21 [facility] [address] [place], [place] [address] Attending Physician: Roseline Ortega MD Referring Physician: Roseline [...] [facility] 31387-133-72 Pt tolerated vaccine without incident...NH 3Result Comment: [id number] 4Result Comment: [12/20/2017] [facility] 90649-151-63 5Result Comment: [12/18/2012] given w/o incidense...mh 6Admin Note: at work 7Result Comment: [facility] [address]-8 Pt tolerated vaccine without incident...NH 8Admin Note: GIVEN W/O INCEDENT Medications aspirin 81 mg oral tablet 1 tablet = 81 mg, By Mouth, Daily, # 30 tablet, 0 Refills, Maintenance, 05/20/14 12:11:28, Tablet Start Date: 05/20/14 Status: Ordered atorvastatin 20 mg oral tablet 1 tablet = 20 mg, By Mouth, Daily, # 90 tablet, 1 Refills, Maintenance, 12/16/20 14:26:00 EDT, Tablet, [facility] #02655, simvastatin discontinued, lipids not at goal, 174, cm, 12/16/20 14:06:00 EDT, Height, 90.2, kg, 04/10/19 10:04:00 EST,... Start Date: 12/16/20 Stop Date: 06/14/21 Status: Ordered chlorthalidone 50 mg oral tablet 2 tablet = 100 mg, By Mouth, Daily, # 180 tablet, 1 Refills, Maintenance, 12/16/20 14:26:00 EDT, Tablet, [facility] #50262, dose increased from 50 mg daily, 174, cm, 12/16/20 14:06:00 EDT, Height, 90.2, kg, 04/10/19 10:04:00 EST, Dry Weight Start Date: 12/16/20 Stop Date: 06/14/21 Status: Ordered FeroSul 325 mg oral tablet 1 tablet, By Mouth, Daily, # 100 tablet, 1 Refills, Maintenance, 07/23/20 12:40:00 EDT, [facility] #[id number], 174, cm, 06/10/20 10:35:00 EDT, Height, 90.2, [...] tablet, 1 Refills, Maintenance, 12/16/20 14:26:00 EDT, [facility] #28729, dose increased from 5 mg, 174, cm, 12/16/20 14:06:00 EDT, Height, 90.2, kg, 04/10/19 10:04:00 EST, Dry Weight Start Date: 12/16/20 Stop Date: 06/14/21 Status: Ordered losartan 100 mg oral tablet 1 tablet = 100 mg, By Mouth, Daily, # 90 tablet, 1 Refills, Maintenance, 12/16/20 14:26:00 EDT, Tablet, [facility] #49173, change from losartan-hctz, 174, cm, 12/16/20 14:06:00 EDT, Height,90.2, kg, 04/10/19 10:04:00 EST, Dry Weight Start Date: 12/16/20 Status: Ordered Metoprolol Succinate ER 50 mg oral tablet, extended release 1 tablet = 50 mg, By Mouth, Daily, # 90 tablet, 1 Refills, Maintenance, 12/16/20 14:26:00 EDT, ER Tablet, [facility] #27297, 174, cm, 12/16/20 14:06:00 EDT, Height, 90.2, [...]
--- OUTSIDE RECORDS SUMMARY | 2023-04-04 06:08 | XMS_ITS | Continuity of Care Document ---
Author Name Unknown Organization [facility] Address [address] [place] [address]- Care Team Providers Care Prop Making Supervisor Name Role Phone Jordan STOCKTON, Roseline Frey Primary Care Physician [facility]): [facility]20 - 03/03/20 [facility] [address] [place], [place] [address] Encounter Diagnosis Hypertension(Discharge Diagnosis) - 02/25/20 Attending Physician: Roseline Ortega MD Allergies, Adverse [...] (oldterm) 6 07/26/10 Given 1Result Comment: [facility] [id number] Pt tolerated vaccine without incident...NH 2Result Comment: [id number] 3Result Comment: [12/20/2017] [facility] 30297-782-94 4Result Comment: [12/18/2012] given w/o incidense...mh 5Admin [...] 3 Refills, Maintenance, 02/25/20 12:03:00 EST, Tablet, [facility] #[id number], dose increased from 50 mg daily, 174, cm, 02/25/20 11:26:00 EST, Height, 90.2, kg, 04/10/19 10:04:00 EST, Dry Weight Start Date: 02/25/20 Stop Date: 02/19/21 Status: Ordered FeroSul 325 mg oral tablet 1 tablet, By Mouth, Daily, # 100 tablet, 0 Refills, Maintenance, 11/12/19 14:03:00 EDT, [facility] #[id number], 174, cm, 10/24/19 20:33:00 EDT, Height, 90.2, [...] tablet, 3 Refills, Maintenance, 04/10/19 10:26:00 EST, [facility] #[id number], dose increased from 5 mg, 172, cm, 04/10/19 10:04:00 EST, Height, 90.2, kg, 04/10/19 10:04:00 EST, Dry Weight Start Date: 04/10/19 Stop Date: 04/04/20 Status: Ordered losartan 100 mg oral tablet 1 tablet = 100 mg, By Mouth, Daily, # 90 tablet, 0 Refills, Maintenance, 02/16/20 7:38:00 EST, Tablet, [facility] #[id number], change from losartan- hctz, 174, cm, 01/21/20 10:35:00 EST, Height, 90.2, kg, 04/10/19 10:04:00 EST, Dry Weight Start Date: 02/16/20 Status: Ordered Metoprolol Succinate ER 50 mg oral tablet, extended release 1 tablet = 50 mg, By Mouth, Daily, # 90 tablet, 0 Refills, Maintenance, 02/16/20 7:38:00 EST, ER Tablet, [facility] #[id number], 174, cm, 01/21/20 10:35:00 EST, Height, 90.2, kg, 04/10/19 10:04:00 EST, Dry Weight Start Date: 02/16/20 Stop Date: 05/16/20 Status: Ordered simvastatin 40 mg oral tablet 40 mg, 1, tablet, By Mouth, Daily at bedtime, # 90 tablet, Refills 1, Tot. Refills 1, Maintenance, 02/16/20 7:39:00 EST, Route to Pharmacy Electronically, [facility] #[id number], 174, cm, 01/21/20 10:35:00 EST, Height, 90.2, kg, 04/10/19 10:04:00... Start Date: 02/16/20 Status: Ordered Vitamin B12 1000 mcg oral [...] Diagnosis Diagnosis Type Effective Dates Health Status Cl inical Service Informant Hypertension Discharge Diagnosis 02/25/20 Vital Signs Most recent to oldest [Reference Range]: 1 Height 174 cm (02/25/20 11:26 AM) Weight 89.4 kg (02/25/20 11:26 AM) Oxygen Saturation [94-100 %] 99 % (02/25/20 11:26 AM) Pulse Rate [55-90 bpm] 65 bpm (02/25/20 11:26 AM) Body Mass Index [18.5-24.99] 29.53 *H* (02/25/20 11:26 AM) Blood Pressure [90-138/55-84 mm Hg] 140/ 64mm Hg *H* (02/25/20 11:26 AM) Temperature [96.8-100.4 DegF] 97.7 DegF (02/25/20 11:26 AM) Mode of Delivery (Oxygen) Room air (02/25/20 11:26 AM) Blood pressure sites Arm, left (02/25/20 11:26 AM) Temperature Route Temporal (02/25/20 11:26 AM) Weight Obtained Via Standing scale (02/25/20 11:26 AM) Social History Social History Type Response Smoking Status Never smoker; Tobacc o user in household: No entered on: 07/16/13 Sex
--- OUTSIDE RECORDS SUMMARY | 2023-04-04 06:08 | XMS_ITS | Continuity of Care Document ---
Author Name Unknown Organization [facility] Address [address] [place] [address]- Care Team Providers Care Hollow Handle Knife Assembler Name Role Phone Jordan STOCKTON, Roseline Frey Primary Care Physician [facility] 10[facility]16[facility]21 - 11/15/21 [facility] [address] [place], [place] [address] Allergies, Adverse Reactions, Alerts Substance [...] without complications....CO 2Result Comment: [facility] [id number] Pt tolerated vaccine without incident...NH 3Result Comment: [id number] 4Result Comment: [12/20/2017] [facility] [id number] 5Result Comment: [12/18/2012] given w/o incidense...mh 6Admin Note: at work 7Result Comment: [facility] [id number] Pt tolerated vaccine without incident...NH 8Admin Note: GIVEN W/O INCEDENT Medications aspirin 81 mg oral tablet 1 tablet = 81 mg, By Mouth, Daily, # 30 tablet, 0 Refills, Maintenance, 05/20/14 12:11:28, Tablet Start Date: 05/20/14 Status: Ordered atorvastatin 20 mg oral tablet 1 tablet, By Mouth, Daily, # 90 tablet, 1 Refills, 10/11/21 10:22:00 EDT, [facility][id number], 173, cm, 10/11/21 10:04:00 EDT, Height, 91.6, kg, 06/05/21 22:06:00 EDT, Dry Weight Start Date: 10/11/21 Status: Ordered chlorthalidone 50 mg oral tablet 2 tablet, By Mouth, Daily, # 180 tablet, 0 Refills, [facility] #[id number], 173, cm, 06/21/21 13:45:00 EDT, Height, 91.6, kg, 06/05/21 22:06:00 EDT, Dry Weight Start Date: 09/29/21 Status: Ordered FeroSul 325 mg oral tablet 1 tablet, By Mouth, Daily, # 100 tablet, 1 Refills, Maintenance, 07/23/20 12:40:00 EDT, [facility] #[id number], 174, cm, 06/10/20 10:35:00 EDT, Height, 90.2, [...] tablet, 1 Refills, Maintenance, 10/11/21 10:22:00 EDT, [facility] #[id number], dose increased from 5 mg, 173, cm, 10/11/21 10:04:00 EDT, Height, 91.6, kg, 06/05/21 22:06:00 EDT, Dry Weight Start Date: 10/11/21 Stop Date: 04/09/22 Status: Ordered lidocaine 5% topical film 1 patch, Topically, Daily, PRN Pain , Mild, remove after 12 hours, # 13 each, 0 Refills, Maintenance, 06/05/21 21:29:00 EDT, Film, [facility] #[id number], Partial fill upon patient request if the prescription is for a schedule II opioid drug., 1... Start Date: 06/05/21 Status: Ordered losartan 100 mg oral tablet 1 tablet = 100 mg, By Mouth, Daily, # 90 tablet, 1 Refills, Maintenance, 10/11/21 10:22:00 EDT, Tablet, [facility] #[id number], change from losartan-hctz, 173, cm, 10/11/21 10:04:00 EDT, Height,91.6, kg, 06/05/21 22:06:00 EDT, Dry Weight Start Date: 10/11/21 Status: Ordered Metoprolol Succinate ER 50 mg oral tablet, extended release 1 tablet = 50 mg, By Mouth, Daily, # 90 tablet, 1 Refills, Maintenance, 10/11/21 10:22:00 EDT, ER Tablet, [facility] #[id number], 173, cm, 10/11/21 10:04:00 EDT, Height, 91.6, [...] Personnel Name: Jordan STOCKTON, Roseline Frey Address: [address] [place] [address] [facility] [address]
--- OUTSIDE RECORDS SUMMARY | 2023-04-04 06:08 | XMS_ITS | Continuity of Care Document ---
Author Name Unknown Organization [facility] Address [address] [place] [address]- Care Team Providers Care Hub Borer Name Role Phone Jordan STOCKTON, Roseline Frey Primary Care Physician [facility] 09/20/19 - 10/20/19 [facility] [address] [place] [address]- [facility] Allergies, Adverse Reactions, Alerts Substance [...] Adult (oldterm) 5 07/26/10 Given 1Result Comment: [id number] 2Result Comment: [12/20/2017] [facility] [id number] 3Result Comment: [12/18/2012] given w/o incidense...mh 4Admin [...] tablet, 3 Refills, Maintenance, 04/10/19 10:26:00 EST, [facility] #[id number], dose increased from 5 mg, 172, cm, [...] 06/12/19 10:13:00 EDT, Route to Pharmacy Electronically, [facility] #[id number], 172, cm, 04/10/19 10:04:00 EST, Height, 90.2, kg, 04/10/19 10:04:00 EST, Dry... Start Date: 06/12/19 Stop Date: 09/10/19 Status: Ordered simvastatin 40 mg oral tablet 40 mg, 1, tablet, By Mouth, Daily at bedtime, # 90 tablet, Refills 3, Tot. Refills 3, Maintenance, 10/31/18 9:36:28 EDT, Route to Pharmacy Electronically, [id number], [facility] #[id number] Start Date: 10/31/18 Status: Ordered Vitamin B12 [...]
[2023-04-04] MEDS: Lactated Ringers 1,000 ML 100 ML IVCONT ×3 (06:36→21:02)
[2023-04-04 06:44] LABS: Glucose, Whole Blood 114 mg/dL (60-115)
--- NOTE | 2023-04-04 07:16 | PHA.MEDREC ---
Pharmacy Consult ? Medication Reconciliation Pharmacy has completed the medication reconciliation. Reviewed med rec done by nursing
--- NOTE | 2023-04-04 07:20 | P.CONAN_ITS ---
Documented by User: Shae Navarro NP 03/26/23 13:26 HPI - Anesthesia Eval Consult details Narrative: 82yo F for Right Mastectomy Modified Radical No recent illness No CP/SOB with active at home. s/p left port insertion 09/2022 with MAC. Systolic BP preop >200. Pt had not taken scheduled BP meds. BP at PAT WNL and educated pt and family importance of taking metoprolol and amlodipine preop DOS. 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) Type 2 diabetes mellitus (Acute) Hypertension (Acute) Beta thalassemia (Acute) Past Medical History Medical History Peripheral neuropathy History of chemotherapy Hypokalemia Port-A-Cath in place Arthritis Elevated cholesterol Invasive ductal carcinoma of right breast Type 2 diabetes mellitus Hypertension Beta thalassemia Family History Family History Sister Breast cancer Family history of problems with anesthesia: No Surgical History Surgical History Hx of bilateral cataract extraction H/O colonoscopy History of delivery (1982) History of Problems with Anesthesia: No Social History Social History Household Members: None Housing: Apartment Are you a primary veterinarian laboratory animal care to a significant other at home: No Do you presently have 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 or other home services: Yes (GRAIN SHOVELER) Alcohol intake: never Comment: slight unsteadiness Patient Tobacco Use Status: Never used Tobacco Use of substances other than those prescribed or required for medical reasons: No Have you been hit, kicked, punched, or otherwise hurt by someone within the past year? If so, by whom?: No Are you DNR?: No Advance Directives: Yes Advance Directives Information Provided: Yes Advance Directives on File: Yes Advance Directives Date on File: 09/01/22 Recently lost weight without trying: No Eating poorly because of decreased appetite: No Nutrition Risks: Surgical patient >75years Poor oral hygiene: No (upper full denture, missing teeth lower but no denture or partial) service: No Current occupational status: retired [employer] Allergies Allergy/AdvReac Type Severity Reaction Status Date / Time metformin Allergy Intermediate Vomiting Verified 04/04/23 06:25 Home Medications Medication Instructions Recorded Confirmed Last Taken Type atorvastatin 20 mg tablet 20 mg PO BEDTIME 08/31/22 03/23/23 04/03/23 History glipizide 10 mg tablet 10 mg PO BID 08/31/22 03/23/23 04/03/23 History losartan 100 mg tablet 100 mg PO 3XW 08/31/22 03/23/23 04/03/23 History metoprolol succinate 50 mg 75 mg PO DAILY 08/31/22 04/04/23 04/04/23 04:30 History tablet,extended release 24 hr fluticasone propionate 50 1 spray intranasal BID PRN Nasal 12/15/22 03/23/23 04/03/23 History mcg/actuation nasal Congestion spray,suspension albuterol sulfate 90 mcg/actuation 2 puff inhalation Q6H PRN wheezing 03/23/23 03/23/23 Unknown History aerosol inhaler amlodipine 10 mg tablet (Norvasc) 10 mg PO DAILY 03/23/23 04/04/23 04/04/23 04:30 History gabapentin 300 mg capsule 300 mg PO BEDTIME PRN nerve pain 03/23/23 03/23/23 04/04/23 04:30 History sennosides 8.6 mg-docusate sodium 1 tab-cap PO BEDTIME PRN 03/23/23 03/23/23 Unknown History 50 mg tablet (Senna with Docusate Constipation Sodium) Exam Height,Weight and Vital Signs: Height 5 ft 8 in Weight 76.657 kg Last Vital Signs Pulse 90 03/23/23 09:57 Resp 20 03/23/23 09:57 BP 130/68 03/23/23 09:57 Pulse Ox 96 03/23/23 09:57 O2 Del Method Room Air 03/23/23 09:57 Pertinent Lab Results Pertinent Lab Results: Lab Results 03/23/23 Range/Units 10:55 WBC 9.9 (4.8-10.8) X10*3/uL RBC 3.80 L (4.20-5.50) X10*6/uL Hgb 9.8 L (12.0-16.0) g/dl Hct 31.2 L (37.0-47.0) % MCV 82.1 (80.0-98.0) fL MCH 25.8 L (27.0-33.0) pg MCHC 31.4 (31.0-35.0) g/dl RDW 16.6 H (11.0-16.0) % Plt Count 298 (160-400) X10*3/uL MPV 9.5 (9.4-12.3) fL Absolute Nucleated RBC 0.000 (0.0-0.012) X10*3/uL Nucleated RBC % (auto) 0.0 (0.0-0.2) /100WBC Sodium 141 (135-145) mmol/L Potassium 3.7 (3.3-5.1) mmol/L Chloride 104 (96-108) mmol/L Carbon Dioxide 28 (22-29) mmol/L Anion Gap 13 (12-20) BUN 10 (9-16) mg/dL Creatinine 0.69 (0.5-1.4) mg/dL Estim Creat Clear Calc 64.4 Estimated GFR > 60 Random Glucose 167 H (60-115) mg/dL Calcium 10.0 (8.4-10.2) mg/dL Blood Type A Positive Antibody Screen NEGATIVE Narrative Narrative: EKG 11/2022 Vent. Rate : 079 BPM Atrial Rate : 079 BPM P-R Int : 146 ms QRS Dur : 076 ms QT Int : 358 ms P-R-T Axes : 044 -02 -30 degrees QTc Int : 410 ms Normal sinus rhythm Minimal voltage criteria for LVH, may be normal variant ( R in aVL ) Nonspecific T wave abnormality Cannot rule out Anterior infarct , age undetermined Abnormal ECG When compared with ECG of 07-SEP-2022 08:42, Nonspecific T wave abnormality now evident in Lateral leads ECHO 09/2022 Conclusions: - 1. Normal LV systolic function with LVEF of 65-70% with mild LVH with impaired relaxation filling pattern 2. Moderately dilated left atrium 3. Normal cardiac valvular Dopplers 4. No clear evidence of pulmonary hypertension 5. No gross pericardial effusion Airway Mallampati Class: II TM Dist: >3cm Neck ROM: Full Denture: Upper Loose/Missing/Broken Teeth: Yes (lower molars missing) Heart: RRR Lungs: CTAB Assessment and Plan Assessment Anesthesia Assessment: Anesthesia Plan Discussed and PAT Visit Final Anesthetic Review Family History of Problems with Anesthesia: No History of Problems with Anesthesia: No Documented by User: Tammy Del Castillo DO 04/04/23 07:23 HPI - Anesthesia Eval Consult details Narrative: 82yo F for Right Mastectomy Modified Radical. BP much improved compared to September 2022. No recent illness No CP/SOB with active at home. s/p left port insertion 09/2022 with MAC. Chemo - last 02/2023 Hypokalemia - IV replacement with chemo, no PO supplement Beta thalassemia - never needed blood transfusion, H&H low with preop labs but increased from previous months PMFSH Past Medical History Medical History Peripheral neuropathy History of chemotherapy Hypokalemia Port-A-Cath in place Arthritis Elevated cholesterol Invasive ductal carcinoma of right breast Type 2 diabetes mellitus Hypertension Beta thalassemia Family History Family History Sister Breast cancer Family history of problems with anesthesia: No Surgical History Surgical History Hx of bilateral cataract extraction H/O colonoscopy History of delivery (1982) History of Problems with Anesthesia: No Social History Social History Household Members: None Housing: Apartment Are you a primary veterinarian laboratory animal care to a significant other at home: No Do you presently have 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 or other home services: Yes (GRAIN SHOVELER) Alcohol intake: never Comment: slight unsteadiness Patient Tobacco Use Status: Never used Tobacco Use of substances other than those prescribed or required for medical reasons: No Have you been hit, kicked, punched, or otherwise hurt by someone within the past year? If so, by whom?: No Are you DNR?: No Advance Directives: Yes Advance Directives Information Provided: Yes Advance Directives on File: Yes Advance Directives Date on File: 09/01/22 Recently lost weight without trying: No Eating poorly because of decreased appetite: No Nutrition Risks: Surgical patient >75years Poor oral hygiene: No (upper full denture, missing teeth lower but no denture or partial) service: No Current occupational status: retired [employer] Allergies Allergy/AdvReac Type Severity Reaction Status Date / Time metformin Allergy Intermediate Vomiting Verified 04/04/23 06:25 Home Medications Medication Instructions Recorded Confirmed Last Taken Type atorvastatin 20 mg tablet 20 mg PO BEDTIME 08/31/22 03/23/23 04/03/23 History glipizide 10 mg tablet 10 mg PO BID 08/31/22 03/23/23 04/03/23 History losartan 100 mg tablet 100 mg PO 3XW 08/31/22 03/23/23 04/03/23 History metoprolol succinate 50 mg 75 mg PO DAILY 08/31/22 04/04/23 04/04/23 04:30 History tablet,extended release 24 hr fluticasone propionate 50 1 spray intranasal BID PRN Nasal 12/15/22 03/23/23 04/03/23 History mcg/actuation nasal Congestion spray,suspension albuterol sulfate 90 mcg/actuation 2 puff inhalation Q6H PRN wheezing 03/23/23 03/23/23 Unknown History aerosol inhaler amlodipine 10 mg tablet (Norvasc) 10 mg PO DAILY 03/23/23 04/04/23 04/04/23 04:30 History gabapentin 300 mg capsule 300 mg PO BEDTIME PRN nerve pain 03/23/23 03/23/23 04/04/23 04:30 History sennosides 8.6 mg-docusate sodium 1 tab-cap PO BEDTIME PRN 03/23/23 03/23/23 Unknown History 50 mg tablet (Senna with Docusate Constipation Sodium) Exam Exam Date and Time: April 04, 2023 0715 Height,Weight and Vital Signs: Height 5 ft 8 in Weight 76.657 kg Last Vital Signs Pulse 90 03/23/23 09:57 Resp 20 03/23/23 09:57 BP 130/68 03/23/23 09:57 Pulse Ox 96 03/23/23 09:57 O2 Del Method Room Air 03/23/23 09:57 Vital Signs Pulse Rate 90 03/23/23 09:57 Respiratory Rate 20 03/23/23 09:57 Blood Pressure 130/68 03/23/23 09:57 Pulse Oximetry 96 03/23/23 09:57 Oxygen Delivery Method Room Air 03/23/23 09:57 Temperature 97.7 F 04/04/23 06:22 Pulse Rate 80 04/04/23 06:22 Respiratory Rate 16 04/04/23 06:22 Blood Pressure 150/72 H 04/04/23 06:22 Pulse Oximetry 97 04/04/23 06:22 Oxygen Delivery Method Room Air 04/04/23 06:22 Airway Mallampati Class: II TM Dist: >3cm Neck ROM: Full Denture: Upper Loose/Missing/Broken Teeth: Yes (lower molars missing) Heart: S1S2 Assessment and Plan Assessment Anesthesia Assessment: Anesthesia Plan Discussed and Chart Reviewed Final Anesthetic Review Family History of Problems with Anesthesia: No History of Problems with Anesthesia: No NPO: Yes ASA Class: III Final Preanesthetic Review: No Changes in Pt Med Stat, Meds/Allgs Chart Reviewed, Consent Obtained/Reviewed and Anes Risks/Benef Reviewed Patient Risk: Intermediate Procedure Risk: Low Anesthetic Plan Anesthetic Plan: GA and Agree w/ Assess. and Plan Disposition: Standard PACU
--- NOTE | 2023-04-04 07:30 | MHC.SHP ---
Pre-Procedural Eval Section A - 24 Hr Update-Section A only Date of Service: 04/04/23 The patient is an INPATIENT: No Changes since office visit: Yes Patient answered all questions; No Cold of Flu in the past 2 weeks, No New Medical Problems and No Changes in Medication The patient has been examined within 24 hours of the surgical procedure. The History & Physical has been completed within 30 days and I have reviewed it.: Yes Section B - Complete if H&P > 30 days Chief Complaint: invasive ductal carcinoma right breast Allergies: Allergies Allergy/AdvReac Type Severity Reaction Status Date / Time metformin Allergy Intermediate Vomiting Verified 04/04/23 06:25 Plan Diagnosis/Plan: Unchanged I have reviewed the history and physical and performed a pertinent physical examination on my patient. No changes have occurred unless specified. Time Spent With Patient Time: Total time managing care of this patient today ____ minutes.
--- NOTE | 2023-04-04 09:59 | P.OP_ITS ---
Operative Note Operative Note Date of Service: 04/04/23 Narrative: Preoperative diagnosis: Right breast invasive ductal carcinoma Postoperative diagnosis: Same Procedure: Right modified radical mastectomy Surgeon: Monroe Magallanes MD Air Operations Manager: Sasha Awad PA-C, GEORGE Sen Anesthesia: General LMA, pectoralis block Indications for procedure: 82-year-old female patient presenting with large right breast invasive ductal carcinoma, previously underwent neoadjuvant treatment now presenting for right modified radical mastectomy. On examination the patient has residual firmness in the upper inner quadrant consistent with residual tumor measuring approximately 2-3 cm in diameter. Operative findings: Evidence of tumor in the upper inner quadrant as noted above. Also enlarged nodules in the right axilla possibly tumor in transit or involved lymph nodes. Specimen: Right breast and axilla Estimated blood loss: 20 mL Complications: None Drains: GARY x2 Procedure details: Patient was brought to the OR placed in a supine position. After administering general anesthesia the patient's right breast was prepped with ChloraPrep and draped in a sterile fashion. A surgical time-out was called the consent confirmed. Patient received preoperative antibiotics and Venodyne boots were in place. Local anesthesia was infiltrated in a circumferential manner to include the area of incision. An elliptical incision was then made to include the residual tumor in the right upper inner quadrant and nipple. Incision was carried down into subcutaneous tissue. Beginning in the upper flap dissection was continued above the breast fascia in the subcutaneous tissue. Dissection was continued up to the clavicle and down to chest wall. The lower flap was then dissected in a similar manner over the breast fascia anteriorly down to the inframammary crease and down to chest wall. Breast tissue was then dissected off the chest wall using electrocautery. Hemostasis was assured all times using electrocautery and free ties of Polysorb suture. Dissection was continued laterally over the pectoralis muscle to the edge of the axilla. Tor's nodes were then dissected between the pectoralis muscle. The clavipectoral fascia was then incised in the axilla entered. Axillary vein was identified and preserved. A rim of normal tissue was left over the axillary vein to assure lymphatic drainage to the arm. The long thoracic and thoracodorsal nerves were identified and preserved. Level 1 and 2 nodes were included in the dissection. The intercostal brachial nerve was also identified and preserved. The remaining breast tissue and axillary tissue was then dissected above these preserved structures and the specimen removed. This was sent to pathology for permanent examination. The wounds were then irrigated with saline solution and suctioned dry. Hemostasis was again assured at this time. Two large Brennon-Vasques drains were then placed 1 into the axilla and a 2nd into the lower flap of the chest. These were brought out through separate stab wounds and connected to bulb suction. Skin flaps were then brought together using interrupted 3-0 Polysorb sutures in dermis. Skin was then closed using a running subcuticular 4-0 Polysorb suture. Steri-Strips, 4 x 4 gauze and Tegaderm were then applied. An breast binder was then applied. The patient tolerated the procedure well. Sponge, instrument, and needle counts reported as correct. The patient was transferred to PACU in stable condition. Breast Axillary Dissection Resection was performed within the boundaries of the axillary vein, chest wall (serratus anterior), and latissimus dorsi: Yes The long thoracic and thoracodorsal nerves were spared during dissection: Yes Attempts were made to spare the intercostobrachial nerves during dissection if possible: Yes If one or more level III nodes is/are removed, then document why: n/a General Surg. - Synoptic Notes Breast Axillary Dissection Resection was performed within the boundaries of the axillary vein, chest wall (serratus anterior), and latissimus dorsi: Yes The long thoracic and thoracodorsal nerves were spared during dissection: Yes Attempts were made to spare the intercostobrachial nerves during dissection if possible: Yes If one or more level III nodes is/are removed, then document why: n/a
[2023-04-04] MEDS: oxyCODONE HCl Immed Release 5 MG TABLET PO (12:24)
[2023-04-04 12:34] LABS: Glucose, Whole Blood 182 mg/dL (60-115)
[2023-04-04 12:37] LABS: Creatinine Clr Calc Pharmacy 63.6; Estimated Glomerular Filt Rate > 60
[2023-04-04] MEDS: Insulin Lispro 100 UNIT/ML 3 ML VIAL SUBCUT ×3 (12:51→20:39)
[2023-04-04] MEDS: ondansetron HCL 4 MG/2 ML VIAL IVPUSH ×2 (12:51→21:01)
--- NOTE | 2023-04-04 12:54 | HO.PM.IMCN ---
History of Present Illness Data of Consult Service Date: 04/04/23 Requesting physician: Monroe Magallanes Primary Care Provider: Roseline Ortega MD HPI Reason for consult: medical management 82 year old female with history of triple negative invasive carcinoma of the R breast, beta thalassemia, type 2 non insulin dependent type 2 diabetes, htn, and hld admitted to general surgery for R breast mastectomy with consult placed to hospitalist service for medical management. On exam, pt attempting to eat turkey sandwich but began vomiting. Reporting associated lightheadedness that is improving. Last VS showed BP 179/84 and HR 109 prior to narcotics administration of pain control. Pt now resting more confortably with repeat BP 145/67 and HR 86. Her daughter, Princess, is at bedside. She otherwise has no complaints. Review of Systems Review of Systems: General: No fevers, malaise, unintentional weight loss HEENT: No blurred vision, diplopia. No sore throat, nasal congestion, rhinorrhea, sinus pain, ear pain Cardiovascular: No chest pain, palpitations, or leg edema Respiratory: No shortness of breath, wheezing, cough GI: +n/v. No abdominal pain, diarrhea, constipation, melena, hematochezia : No dysuria, hematuria, increased urinary frequency, decreased urinary output MSK: No myalgia, back pain Neuro: No headaches, weakness, paresthesias. +lightheadedness Skin: No rashes or lesions [facility] Medical History Peripheral neuropathy History of chemotherapy Hypokalemia Port-A-Cath in place Arthritis Elevated cholesterol Invasive ductal carcinoma of right breast Type 2 diabetes mellitus Hypertension Beta thalassemia Family History Sister Breast cancer Surgical History Hx of bilateral cataract extraction H/O colonoscopy History of delivery (1982) Social History Household Members: Children Housing: House Are you a primary healthcare prof to a significant other at home: No Do you presently have 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 or other home services: Yes ([employer]) Alcohol intake: never Comment: slight unsteadiness Patient Tobacco Use Status: Never used Tobacco Use of substances other than those prescribed or required for medical reasons: No Have you been hit, kicked, punched, or otherwise hurt by someone within the past year? If so, by whom?: No Do you feel safe in your current relationship?: No Is there a partner from a previous relationship who is making you feel unsafe now?: No Are you made to feel afraid or neglected: No Orthodox Healthcare Practices: Anabaptism Are you DNR?: No Advance Directives: Yes Advance Directives Information Provided: Yes Advance Directives on File: Yes Advance Directives Date on File: 09/01/22 Do you have thoughts of harming others: None Do you have a plan to hurt others: No Plan Recently lost weight without trying: No Eating poorly because of decreased appetite: No Nutrition Risks: Surgical patient >75years Patient : No Poor oral hygiene: No service: No Current occupational status: retired [employer] Allergies Allergy/AdvReac Type Severity Reaction Status Date / Time metformin Allergy Intermediate Vomiting Verified 04/04/23 06:25 Active Medications: Current Medications Albuterol Sulfate (Albuterol Sulfate 90 Mcg 8 Gm Inhaler) 2 puff INHALE Q6H PRN PRN Reason: wheezing Amlodipine Besylate (Amlodipine Besylate 10 Mg Tablet) 10 mg PO DAILY [facility]; Protocol Atorvastatin Calcium (Atorvastatin Calcium 20 Mg Tablet) 20 mg PO BEDTIME [facility] Dextrose (Dextrose 50 % 25 Gm/50 Ml Syringe) 25 gm IVPUSH Q15M PRN; Protocol PRN Reason: per Hypoglycemia Standing Ord. Enoxaparin Sodium (Enoxaparin Sodium 40 Mg/0.4 Ml Syringe) 40 mg SUBCUT Q24H [facility] Fluticasone Propionate (Fluticasone Propionate Nasal 16 Gm [place]) 1 spray NOSTRIL-B BID PRN PRN Reason: Nasal Congestion Gabapentin (Gabapentin 300 Mg Capsule) 300 mg PO BEDTIME PRN PRN Reason: nerve pain Glucose (Glucose Gel 15 Gm Gel..Gram.) 15 gm PO Q15M PRN; Protocol PRN Reason: per Hypoglycemia Standing Ord. Hydromorphone HCl (Hydromorphone Hcl 0.5 Mg/0.5 Ml Syringe) 0.25 mg IVPUSH Q5M PRN; Protocol PRN Reason: Pain, Severe (Pain Scale 7-10) Hydromorphone HCl (Hydromorphone Hcl 0.5 Mg/0.5 Ml Syringe) 0.5 mg IVPUSH Q3H PRN; Protocol PRN Reason: Pain, Severe (Pain Scale 7-10) Lactated Ringer's (Lr) 1,000 mls @ 100 mls/hr IVCONT .Q10H [facility] Last Admin: 04/04/23 12:08 Dose: 100 mls/hr Acetaminophen (Ofirmev) 1,000 mg in 100 mls @ 400 mls/hr IV Q6H [facility] Stop: 04/05/23 08:14 Insulin Human Lispro (Insulin Lispro 100 Unit/Ml 3 Ml Vial) 0 unit SUBCUT QIDACHS [facility]; Protocol Stop: 04/05/23 11:54 Last Admin: 04/04/23 12:51 Dose: 2 unit Losartan Potassium (Losartan Potassium 50 Mg Tablet) 100 mg PO MoWeFr [facility]; Protocol Metoprolol Succinate (Metoprolol Succinate Er 25 Mg Tab.Er.24h) 75 mg PO DAILY [facility]; Protocol Ondansetron HCl (Ondansetron Hcl 4 Mg/2 Ml Vial) 4 mg IVPUSH Q8H PRN PRN Reason: Nausea and Vomiting Last Admin: 04/04/23 12:51 Dose: 4 mg Oxycodone HCl (Oxycodone Hcl Immed Release 5 Mg Tablet) 5 mg PO Q6H PRN PRN Reason: Pain, Moderate(Pain Scale 4-6) Last Admin: 04/04/23 12:24 Dose: 5 mg Senna/Docusate Sodium (Sennosides/Docusate Sodium Tablet) 1 tab PO BEDTIME PRN PRN Reason: Constipation Sodium Chloride (0.9 % Sodium Chloride Flush 3 Ml Syringe) 3 ml IVFLUSH [facility] Zolpidem Tartrate (Zolpidem Tartrate 5 Mg Tablet) 5 mg PO BEDTIME PRN PRN Reason: Insomnia Home Medications Medication Instructions Recorded Confirmed Last Taken Type atorvastatin 20 mg tablet 20 mg PO BEDTIME 08/31/22 03/23/23 04/03/23 History glipizide 10 mg tablet 10 mg PO BID 08/31/22 03/23/23 04/03/23 History losartan 100 mg tablet 100 mg PO 3XW 08/31/22 03/23/23 04/03/23 History metoprolol succinate 50 mg 75 mg PO DAILY 08/31/22 04/04/23 04/04/23 04:30 History tablet,extended release 24 hr fluticasone propionate 50 1 spray intranasal BID PRN Nasal 12/15/22 03/23/23 04/03/23 History mcg/actuation nasal Congestion spray,suspension albuterol sulfate 90 mcg/actuation 2 puff inhalation Q6H PRN wheezing 03/23/23 03/23/23 Unknown History aerosol inhaler amlodipine 10 mg tablet (Norvasc) 10 mg PO DAILY 03/23/23 04/04/23 04/04/23 04:30 History gabapentin 300 mg capsule 300 mg PO BEDTIME PRN nerve pain 03/23/23 03/23/23 04/04/23 04:30 History sennosides 8.6 mg-docusate sodium 1 tab-cap PO BEDTIME PRN 03/23/23 03/23/23 Unknown History 50 mg tablet (Senna with Docusate Constipation Sodium) Physical Exam Vital Signs and Narrative: Vital Signs: Last Vital Signs Temp 97.4 F 04/04/23 11:19 Pulse 109 H 04/04/23 11:19 Resp 15 04/04/23 11:19 BP 179/84 H 04/04/23 11:19 Pulse Ox 98 04/04/23 11:19 O2 Del Method Nasal Cannula 04/04/23 11:19 O2 Flow Rate 2.0 04/04/23 11:19 BMI result Body Mass Index 23.6 Constitutional - Awake and Alert, No apparent distress Eyes - PERRLA, EOMI Cardiovascular - S1S2, RRR, No edema Respiratory - Normal lung expansion, Normal respiratory effort, No respiratory distress, CTA bilaterally Breast - GARY drains in place draining serosanguinous fluid Gastrointestinal - NT / ND; +BS; No rebound or guarding Extremities - no calf tenderness bilaterally, no swelling Skin - Warm/Dry Neurological - Alert & oriented x3 Psychological - Appropriate affect Results Labs 03/23/23 10:55 04/04/23 12:14 Labs: Laboratory Results - last 24 hr 04/04/23 04/04/23 04/04/23 06:40 12:14 12:29 Estim Creat Clear Calc 63.6 Estimated GFR > 60 POC Glucose 114 182 H Assessment and Plan (1) Invasive ductal carcinoma of right breast: Status: Chronic Plan 82 year old female with history of triple negative invasive carcinoma of the R breast, beta thalassemia, type 2 non insulin dependent type 2 diabetes, htn, and hld admitted to general surgery for R breast mastectomy with consult placed to hospitalist service for medical management. # R -sided invasive ductal carcinoma -s/p R mastectomy POD0 -weaned from supplemental O2 -plan per general surgery #n/v w/ associated lightheadedness -possibly r/t narcotic administration vs effects from anesthesia -ondansetron prn -small sips clears for now, advance as tolerated per general surgery #HTN -bp uncontrolled secondary to pain, improved to 145/67 on rechec on exam -continue metorpolol, losartan, amlodipine #Type 2 DM -POC glucose, diabetic diet -humalog on ss -hold glipizide #HLD -continue statin Thank you for this consult. Will continue following along with you.
[2023-04-04] MEDS: Acetaminophen 1,000 MG/100 ML PIGGYBACK 400 MG IV ×2 (15:06→20:38)
[2023-04-04 16:07] LABS: Glucose, Whole Blood 224 mg/dL (60-115)
[2023-04-04] MEDS: Promethazine HCL 25 MG TABLET PO (16:10)
--- NOTE | 2023-04-04 18:28 | PC.NURSE ---
Pt ambulated to BR and Voided. C/o nausea unrelieved by zofran. Dr Magallanes notified. Phenergan ordered and given to pt with good effect. Pt currently sleeping. Family at bedside. 2 [place] drains to chest with bloody drainage. dressings CDI. Voices no complaints of pain at this time
[2023-04-04 20:05] LABS: Glucose, Whole Blood 171 mg/dL (60-115)
[2023-04-04] MEDS: Losartan Potassium 50 MG TABLET 100 MG PO (20:38)
[2023-04-04] MEDS: Atorvastatin Calcium 20 MG TABLET PO (20:39)
[2023-04-04] MEDS: HYDROmorphone HCl 0.5 MG/0.5 ML SYRINGE IVPUSH (21:12)
[2023-04-05] MEDS: Acetaminophen 1,000 MG/100 ML PIGGYBACK 400 MG IV ×2 (02:36→08:36)
[2023-04-05 03:58] VITALS: BP 131/68; PULSE 62; RESP 18; TEMP 37.1; O2SAT 97
[2023-04-05] MEDS: Lactated Ringers 1,000 ML 100 ML IVCONT (05:52)
[2023-04-05] MEDS: HYDROmorphone HCl 0.5 MG/0.5 ML SYRINGE IVPUSH ×2 (06:29→20:25)
[2023-04-05 07:05] LABS: MANUAL DIFF FLAG NO
[2023-04-05 07:12] LABS: Basophils Percent Auto 0.2 % (0-2); Eosinophils Percent Auto 0.1 % (0-4); Hematocrit 27.3 % (37.0-47.0); Hemoglobin 8.7 g/dl (12.0-16.0); Imm Gran Abs Auto 0.06 X10*3/uL (0.00-0.03); Imm Gran Pct Auto 0.5 % (0.0-0.4); Lymphocytes Absolute Auto 1.3 X10*3/uL (1.2-4.9); Lymphocytes Percent Auto 11.5 % (20-40); Mean Corpuscular HGB Conc 31.9 g/dl (31.0-35.0); Mean Corpuscular Volume 81.5 fL (80.0-98.0); Mean Platelet Volume 9.4 fL (9.4-12.3); Monocytes Absolute Auto 0.8 X10*3/uL (0.1-1.2); Monocytes Percent Auto 7.3 % (2-11); Neutrophils Absolute Auto 9.2 x10*3/uL (2.0-8.3); Neutrophils Percent Auto 80.4 % (45-73); Platelet Count 191 X10*3/uL (160-400); Red Blood Count 3.35 X10*6/uL (4.20-5.50); Red Cell Distribution Width 15.9 % (11.0-16.0); White Blood Count 11.5 X10*3/uL (4.8-10.8)
[2023-04-05 07:24] LABS: Anion Gap 13 (12-20); Blood Urea Nitrogen 13 mg/dL (9-16); Calcium 9.6 mg/dL (8.4-10.2); Carbon Dioxide 26 mmol/L (22-29); Chloride 105 mmol/L (96-108); Creatinine Clr Calc Pharmacy 64.4; Estimated Glomerular Filt Rate > 60; Glucose Random 181 mg/dL (60-115); Potassium 3.9 mmol/L (3.3-5.1); Sodium 140 mmol/L (135-145)
[2023-04-05 07:25] LABS: Glucose, Whole Blood 109 mg/dL (60-115)
[2023-04-05 07:38] VITALS: BP 152/69; PULSE 64; RESP 16; TEMP 36.2; O2SAT 95
--- NOTE | 2023-04-05 07:44 | PM.PNGS ---
Subjective Subjective Date of Service: 04/05/23 Interval history: Reports nausea improved this morning; has some pain in the axilla. Feels a bit dizzy. Has not been out of bed. Physical Exam Vital Signs: Vital Signs: Last Vital Signs Temp 97.2 F 04/05/23 07:38 Pulse 64 04/05/23 07:38 Resp 16 04/05/23 07:38 BP 152/69 H 04/05/23 07:38 Pulse Ox 95 04/05/23 07:38 O2 Del Method Room Air 04/05/23 07:38 O2 Flow Rate 2.0 04/04/23 11:19 BMI result Body Mass Index 23.6 Const: General: comfortable Nutritional Appearance: well nourished Orientation/consciousness: patient oriented x3 Chest: Other: Right mastectomy incision dressing is clean and intact. GARY with clot noted in the tubing, stripped into the bulb. Flaps appear somewhat full. Will monitor now that GARY cleared. Resp: Effort & Inspection: normal respiratory effort, no audible wheezes, no cough and no respiratory distress Skin: General skin exam: no rashes or lesions noted Neuro: General: patient oriented x3 Extrem: Other: No RUE edema noted Objective Data Active Medications Albuterol Sulfate (Albuterol Sulfate 90 Mcg 8 Gm Inhaler) 2 puff INHALE Q6H PRN PRN Reason: wheezing Amlodipine Besylate (Amlodipine Besylate 10 Mg Tablet) 10 mg PO DAILY [facility]; Protocol Atorvastatin Calcium (Atorvastatin Calcium 20 Mg Tablet) 20 mg PO BEDTIME [facility] Last Admin: 04/04/23 20:39 Dose: 20 mg Documented By: AUSTIN Dextrose (Dextrose 50 % 25 Gm/50 Ml Syringe) 25 gm IVPUSH Q15M PRN; Protocol PRN Reason: per Hypoglycemia Standing Ord. Enoxaparin Sodium (Enoxaparin Sodium 40 Mg/0.4 Ml Syringe) 40 mg SUBCUT Q24H [facility] Fluticasone Propionate (Fluticasone Propionate Nasal 16 Gm [place]) 1 spray NOSTRIL-B BID PRN PRN Reason: Nasal Congestion Gabapentin (Gabapentin 300 Mg Capsule) 300 mg PO BEDTIME PRN PRN Reason: nerve pain Glucose (Glucose Gel 15 Gm Gel..Gram.) 15 gm PO Q15M PRN; Protocol PRN Reason: per Hypoglycemia Standing Ord. Hydromorphone HCl (Hydromorphone Hcl 0.5 Mg/0.5 Ml Syringe) 0.5 mg IVPUSH Q3H PRN; Protocol PRN Reason: Pain, Severe (Pain Scale 7-10) Last Admin: 04/05/23 06:29 Dose: 0.5 mg Documented By: AUSTIN Lactated Ringer's (Lr) 1,000 mls @ 100 mls/hr IVCONT .Q10H [facility] Last Admin: 04/05/23 05:52 Dose: 100 mls/hr Documented By: AUSTIN Acetaminophen (Ofirmev) 1,000 mg in 100 mls @ 400 mls/hr IV Q6H [facility] Stop: 04/05/23 08:14 Last Infusion: 04/05/23 02:51 Dose: Infused Documented By: AUSTIN Insulin Human Lispro (Insulin Lispro 100 Unit/Ml 3 Ml Vial) 0 unit SUBCUT QIDACHS [facility]; Protocol Stop: 04/05/23 11:54 Last Admin: 04/05/23 07:18 Dose: Not Given Documented By: MIRTA Non-Admin Reason: No Insulin Coverage Losartan Potassium (Losartan Potassium 50 Mg Tablet) 100 mg PO MoWeFr@2100 [facility]; Protocol Last Admin: 04/04/23 20:38 Dose: 100 mg Documented By: AUSTIN Metoprolol Succinate (Metoprolol Succinate Er 25 Mg Tab.Er.24h) 75 mg PO DAILY [facility]; Protocol Ondansetron HCl (Ondansetron Hcl 4 Mg/2 Ml Vial) 4 mg IVPUSH Q8H PRN PRN Reason: Nausea and Vomiting Last Admin: 04/04/23 21:01 Dose: 4 mg Documented By: AUSTIN Oxycodone HCl (Oxycodone Hcl Immed Release 5 Mg Tablet) 5 mg PO Q6H PRN PRN Reason: Pain, Moderate(Pain Scale 4-6) Last Admin: 04/04/23 12:24 Dose: 5 mg Documented By: CHUCHO Promethazine HCl (Promethazine Hcl 25 Mg Tablet) 25 mg PO Q8H PRN PRN Reason: Nausea and Vomiting Last Admin: 04/04/23 16:10 Dose: 25 mg Documented By: TARI Senna/Docusate Sodium (Sennosides/Docusate Sodium Tablet) 1 tab PO BEDTIME PRN PRN Reason: Constipation Sodium Chloride (0.9 % Sodium Chloride Flush 3 Ml Syringe) 3 ml IVFLUSH QSHIFT [facility] Last Admin: 04/04/23 23:00 Dose: Not Given Documented By: AUSTIN Non-Admin Reason: IV Running Zolpidem Tartrate (Zolpidem Tartrate 5 Mg Tablet) 5 mg PO BEDTIME PRN PRN Reason: Insomnia Labs 04/05/23 05:31 04/05/23 05:31 Labs: Laboratory Results - last 24 hr 04/04/23 04/04/23 04/04/23 12:14 12:29 16:03 MCV MCH MCHC RDW Plt Count MPV Immature Gran % (Auto) Neut % (Auto) Lymph % (Auto) Mclean % (Auto) Eos % (Auto) Baso % (Auto) Lymph # (Auto) Mclean # (Auto) Eos # (Auto) Baso # (Auto) Abs Immat Gran (auto) Absolute Neuts (auto) Absolute Nucleated RBC Nucleated RBC % (auto) Anion Gap Estim Creat Clear Calc 63.6 Estimated GFR > 60 POC Glucose 182 H 224 H Random Glucose Calcium 04/04/23 04/05/23 04/05/23 19:26 05:31 07:09 MCV 81.5 MCH 26.0 L MCHC 31.9 RDW 15.9 Plt Count 191 D MPV 9.4 Immature Gran % (Auto) 0.5 H Neut % (Auto) 80.4 H Lymph % (Auto) 11.5 L Mclean % (Auto) 7.3 Eos % (Auto) 0.1 Baso % (Auto) 0.2 Lymph # (Auto) 1.3 [place] # (Auto) 0.8 Eos # (Auto) 0.0 Baso # (Auto) 0.0 Abs Immat Gran (auto) 0.06 H Absolute Neuts (auto) 9.2 H Absolute Nucleated RBC 0.000 Nucleated RBC % (auto) 0.0 Anion Gap 13 Estim Creat Clear Calc 64.4 Estimated GFR > 60 POC Glucose 171 H 109 Random Glucose 181 H Calcium 9.6 Procedures Date of Service Date of Service: 04/05/23 Progress Note: A&P Assessment and plan (1) Triple negative malignant neoplasm of breast: Status: Acute (2) 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 GARY with serosang output, clot. H/H slightly below baseline, (chronic anemia, chemo, Beta Thalassemia and post op). Patient will need to be ambulated today; encouraged IS. Advance diet as tolerated. Await pathology results. Time Spent With Patient Time: Total time managing care of this patient today ____ minutes. Quality Stroke Does the patient have a stroke diagnosis?: No VTE Prior VTE?: No VTE Risk Level:: Surgical - moderate VTE Device Contraindication: N/A - Device Ordered VTE Drug Contraindication: N/A - Med Ordered
[2023-04-05] MEDS: amLODIPine Besylate 10 MG TABLET PO (08:30)
[2023-04-05] MEDS: Metoprolol Succinate ER 25 MG TAB.ER.24H 75 MG PO (08:30)
[2023-04-05] MEDS: Enoxaparin Sodium 40 MG/0.4 ML SYRINGE SUBCUT (10:50)
--- NOTE | 2023-04-05 11:05 | MHC.CM.PN ---
IMM 04/05/23 Female 82 Her dtr lives with her. She receives assist with ADL's from her dtr. She uses a cane. A shower Carlos has private ay in home aide through [employer]. A referral has been sent to [facility]. [facility] has been referred at the patient request. They will provide home services. DP home with [facility] Patients daughter will provide transportation home.
[2023-04-05 11:14] LABS: Glucose, Whole Blood 134 mg/dL (60-115)
[2023-04-05] MEDS: 0.9 % Sodium Chloride Flush 3 ML SYRINGE IVFLUSH ×2 (13:59→20:26)
[2023-04-05] MEDS: ondansetron HCL 4 MG/2 ML VIAL IVPUSH (13:59)
--- NOTE | 2023-04-05 14:19 | HO.POSTANES ---
Post Anesthesia Evaluation Post Anesthesia Evaluation Date of Service: 04/05/23 Vital Signs: Vital Signs Temp Pulse Resp BP Pulse Ox O2 Del Method 04/05/23 07:38 97.2 F 64 16 152/69 H 95 Room Air 04/05/23 03:58 98.7 F 62 18 131/68 97 Room Air Anesthesia: Nerve Block and General Mental Status: Awake Pain Control: Satisfactory Nausea/Vomiting: None Hydration: Adequate Anesthesia-Related Issues: No Anes. Related Issues
[2023-04-05 15:18] VITALS: BP 133/67; PULSE 66; RESP 16; TEMP 36.6; O2SAT 94
--- NOTE | 2023-04-05 15:57 | P.PNIM_ITS ---
Subjective Subjective Date of Service: 04/05/23 Interval History: seen and examined this morning follow up for right mastectomy, POD #1 patient reports feeling better then yesterday and states dizziness, but when asked further she has been ambulating ok and feels more weak but denies feeling like she might pass out Review of Systems Review of Systems: Yes all other systems are reviewed and are negative Constitutional Constitutional: Denies chills and Denies fever(s) Cardiovascular Cardiovascular: Denies chest pain, Denies palpitations and Denies dyspnea Respiratory Respiratory: Denies dyspnea Gastrointestinal Gastrointestinal: Denies abdominal pain Endocrine Endocrine: Denies palpitations Physical Exam 2 Vital Signs: Vital Signs: Last Vital Signs Temp 97.8 F 04/05/23 15:18 Pulse 66 04/05/23 15:18 Resp 16 04/05/23 15:18 BP 133/67 04/05/23 15:18 Pulse Ox 94 04/05/23 15:18 O2 Del Method Room Air 04/05/23 15:18 O2 Flow Rate 2.0 04/04/23 11:19 BMI result Body Mass Index 23.6 Const: General: cooperative, comfortable, no acute distress, alert and awake Nutritional Appearance: average body habitus Orientation/consciousness: p atient oriented x3 Chest: Other: [address] with serosangious drainage; dressing c/d/i Resp: Effort & Inspection: normal respiratory effort, able to speak in complete sentences, no respiratory distress and no use of accessory muscles A uscultation: clear to auscultation bilaterally Cardio: Rate: regular rate GI: Inspection: No distended Palpation (GI): Soft to palpation and nontender Neuro: General: patient oriented x3, moves all extremities and CN's II-XI intact bilaterally Extrem: General: Yes no pedal edema Objective Data Active Medications Albuterol Sulfate (Albuterol Sulfate 90 Mcg 8 Gm Inhaler) 2 puff INHALE Q6H PRN PRN Reason: wheezing Amlodipine Besylate (Amlodipine Besylate 10 Mg Tablet) 10 mg PO DAILY [facility]; Protocol Last Admin: 04/05/23 08:30 Dose: 10 mg Documented By: MIRTA Atorvastatin Calcium (Atorvastatin Calcium 20 Mg Tablet) 20 mg PO BEDTIME [facility] Last Admin: 04/04/23 20:39 Dose: 20 mg Documented By: AUSTIN Dextrose (Dextrose 50 % 25 Gm/50 Ml Syringe) 25 gm IVPUSH Q15M PRN; Protocol PRN Reason: per Hypoglycemia Standing Ord. Enoxaparin Sodium (Enoxaparin Sodium 40 Mg/0.4 Ml Syringe) 40 mg SUBCUT Q24H [facility] Last Admin: 04/05/23 10:50 Dose: 40 mg Documented By: MIRTA Fluticasone Propionate (Fluticasone Propionate Nasal 16 Gm [place]) 1 spray NOSTRIL-B BID PRN PRN Reason: Nasal Congestion Gabapentin (Gabapentin 300 Mg Capsule) 300 mg PO BEDTIME PRN PRN Reason: nerve pain Glucose (Glucose Gel 15 Gm Gel..Gram.) 15 gm PO Q15M PRN; Protocol PRN Reason: per Hypoglycemia Standing Ord. Hydromorphone HCl (Hydromorphone Hcl 0.5 Mg/0.5 Ml Syringe) 0.5 mg IVPUSH Q3H PRN; Protocol PRN Reason: Pain, Severe (Pain Scale 7-10) Last Admin: 04/05/23 06:29 Dose: 0.5 mg Documented By: AUSTIN Losartan Potassium (Losartan Potassium 50 Mg Tablet) 100 mg PO MoWeFr@2100 [facility]; Protocol Last Admin: 04/04/23 20:38 Dose: 100 mg Documented By: AUSTIN Metoprolol Succinate (Metoprolol Succinate Er 25 Mg Tab.Er.24h) 75 mg PO DAILY [facility]; Protocol Last Admin: 04/05/23 08:30 Dose: 75 mg Documented By: MIRTA Ondansetron HCl (Ondansetron Hcl 4 Mg/2 Ml Vial) 4 mg IVPUSH Q8H PRN PRN Reason: Nausea and Vomiting Last Admin: 04/05/23 13:59 Dose: 4 mg Documented By: MIRTA Oxycodone HCl (Oxycodone Hcl Immed Release 5 Mg Tablet) 5 mg PO Q6H PRN PRN Reason: Pain, Moderate(Pain Scale 4-6) Last Admin: 04/04/23 12:24 Dose: 5 mg Documented By: CHUCHO Promethazine HCl (Promethazine Hcl 25 Mg Tablet) 25 mg PO Q8H PRN PRN Reason: Nausea and Vomiting Last Admin: 04/04/23 16:10 Dose: 25 mg Documented By: HO.LARHO Senna/Docusate Sodium (Sennosides/Docusate Sodium Tablet) 1 tab PO BEDTIME PRN PRN Reason: Constipation Sodium Chloride (0.9 % Sodium Chloride Flush 3 Ml Syringe) 3 ml IVFLUSH QSHIFT [facility] Last Admin: 04/05/23 13:59 Dose: 3 ml Documented By: MIRTA Zolpidem Tartrate (Zolpidem Tartrate 5 Mg Tablet) 5 mg PO BEDTIME PRN PRN Reason: Insomnia Labs 04/05/23 05:31 04/05/23 05:31 Labs: Laboratory Results - last 24 hr 04/04/23 04/04/23 04/05/23 16:03 19:26 05:31 MCV 81.5 MCH 26.0 L MCHC 31.9 RDW 15.9 Plt Count 191 D MPV 9.4 Immature Gran % (Auto) 0.5 H Neut % (Auto) 80.4 H Lymph % (Auto) 11.5 L [place] % (Auto) 7.3 Eos % (Auto) 0.1 Baso % (Auto) 0.2 Lymph # (Auto) 1.3 Wheeler # (Auto) 0.8 Eos # (Auto) 0.0 Baso # (Auto) 0.0 Abs Immat Gran (auto) 0.06 H Absolute Neuts (auto) 9.2 H Absolute Nucleated RBC 0.000 Nucleated RBC % (auto) 0.0 Anion Gap 13 Estim Creat Clear Calc 64.4 Estimated GFR > 60 POC Glucose 224 H 171 H Random Glucose 181 H Calcium 9.6 04/05/23 04/05/23 07:09 11:10 MCV MCH MCHC RDW Plt Count MPV Immature Gran % (Auto) Neut % (Auto) Lymph % (Auto) [place] % (Auto) Eos % (Auto) Baso % (Auto) Lymph # (Auto) Wheeler # (Auto) Eos # (Auto) Baso # (Auto) Abs Immat Gran (auto) Absolute Neuts (auto) Absolute Nucleated RBC Nucleated RBC % (auto) Anion Gap Estim Creat Clear Calc Estimated GFR POC Glucose 109 134 H Random Glucose Calcium Assessment and Plan (1) Invasive ductal carcinoma of right breast: Status: Chronic Plan 82 year old female with history of triple negative invasive carcinoma of the R breast, beta thalassemia, type 2 non insulin dependent type 2 diabetes, htn, and hld admitted to general surgery for R breast mastectomy with consult placed to hospitalist service for medical management. R -sided invasive ductal carcinoma s/p R mastectomy POD1 plan per general surgery n/v resolved. tolerating diet acute on chronic anemia multifactorial due to chemo, thalassemia and post op will follow H/H HTN BP under adequate control continue metorpolol, losartan, amlodipine Type 2 DM diabetic diet follow POC BS hold glipizide HLD continue statin Thank you for this consult. Will continue following along with you. Quality Stroke Does the patient have a stroke diagnosis?: No VTE Prior VTE?: No VTE Risk Level:: Surgical - moderate VTE Device Contraindication: N/A - Device Ordered VTE Drug Contraindication: N/A - Med Ordered
[2023-04-05 16:11] LABS: Glucose, Whole Blood 132 mg/dL (60-115)
[2023-04-05 20:22] LABS: Glucose, Whole Blood 146 mg/dL (60-115)
[2023-04-05] MEDS: Atorvastatin Calcium 20 MG TABLET PO (20:25)
[2023-04-05 23:23] VITALS: BP 147/65; PULSE 58; RESP 18; TEMP 37.1; O2SAT 94
[2023-04-06] MEDS: oxyCODONE HCl Immed Release 5 MG TABLET PO ×3 (02:23→19:19)
[2023-04-06 02:47] VITALS: BP 155/71; PULSE 65; RESP 18; TEMP 37.1; O2SAT 95
[2023-04-06 05:23] LABS: MANUAL DIFF FLAG NO
[2023-04-06 05:29] LABS: Basophils Percent Auto 0.5 % (0-2); Eosinophils Absolute Auto 0.8 X10*3/uL (0.0-0.4); Eosinophils Percent Auto 12.1 % (0-4); Hematocrit 26.4 % (37.0-47.0); Hemoglobin 8.2 g/dl (12.0-16.0); Imm Gran Abs Auto 0.02 X10*3/uL (0.00-0.03); Imm Gran Pct Auto 0.3 % (0.0-0.4); Lymphocytes Absolute Auto 1.3 X10*3/uL (1.2-4.9); Lymphocytes Percent Auto 20.2 % (20-40); Mean Corpuscular HGB Conc 31.1 g/dl (31.0-35.0); Mean Corpuscular Hemoglobin 25.7 pg (27.0-33.0); Mean Corpuscular Volume 82.8 fL (80.0-98.0); Mean Platelet Volume 9.2 fL (9.4-12.3); Monocytes Absolute Auto 0.5 X10*3/uL (0.1-1.2); Monocytes Percent Auto 8.1 % (2-11); Neutrophils Absolute Auto 3.8 x10*3/uL (2.0-8.3); Neutrophils Percent Auto 58.8 % (45-73); Platelet Count 167 X10*3/uL (160-400); Red Blood Count 3.19 X10*6/uL (4.20-5.50); Red Cell Distribution Width 15.9 % (11.0-16.0); White Blood Count 6.4 X10*3/uL (4.8-10.8)
[2023-04-06 07:26] VITALS: BP 141/66; PULSE 60; RESP 14; TEMP 36; O2SAT 100
[2023-04-06 07:33] LABS: Glucose, Whole Blood 83 mg/dL (60-115)
--- NOTE | 2023-04-06 08:26 | P.PNGS_ITS ---
Subjective Subjective Date of Service: 04/06/23 Interval history: Did not sleep well due to pain. Still requiring IV analgesics. Was OOB and ambulated yesterday, denies further dizziness. Tolerating diet. Physical Exam 2 Vital Signs: Vital Signs: Last Vital Signs Temp 96.8 F 04/06/23 07:26 Pulse 60 04/06/23 07:26 Resp 14 04/06/23 07:26 BP 141/66 H 04/06/23 07:26 Pulse Ox 100 04/06/23 07:26 O2 Del Method Room Air 04/06/23 07:26 O2 Flow Rate 2.0 04/04/23 11:19 BMI result Body Mass Index 23.6 Const: General: comfortable, no acute distress and alert O rientation/consciousness: patient oriented x3 Chest: Other: right mastectomy incision clean, steris in place, GARY drain with more serous output this morning, incision/axilla remains tender Resp: Effort & Inspection: normal respiratory effort Skin: General skin exam: no rashes or lesions noted Neuro: General: patient oriented x3 and moves all extremities Objective Data Active Medications Albuterol Sulfate (Albuterol Sulfate 90 Mcg 8 Gm Inhaler) 2 puff INHALE Q6H PRN PRN Reason: wheezing Amlodipine Besylate (Amlodipine Besylate 10 Mg Tablet) 10 mg PO DAILY [facility]; Protocol Last Admin: 04/05/23 08:30 Dose: 10 mg Documented By: MIRTA Atorvastatin Calcium (Atorvastatin Calcium 20 Mg Tablet) 20 mg PO BEDTIME [facility] Last Admin: 04/05/23 20:25 Dose: 20 mg Documented By: BOB Dextrose (Dextrose 50 % 25 Gm/50 Ml Syringe) 25 gm IVPUSH Q15M PRN; Protocol PRN Reason: per Hypoglycemia Standing Ord. Enoxaparin Sodium (Enoxaparin Sodium 40 Mg/0.4 Ml Syringe) 40 mg SUBCUT Q24H [facility] Last Admin: 04/05/23 10:50 Dose: 40 mg Documented By: MIRTA Fluticasone Propionate (Fluticasone Propionate Nasal 16 Gm [place]) 1 spray NOSTRIL-B BID PRN PRN Reason: Nasal Congestion Gabapentin (Gabapentin 300 Mg Capsule) 300 mg PO BEDTIME PRN PRN Reason: nerve pain Glucose (Glucose Gel 15 Gm Gel..Gram.) 15 gm PO Q15M PRN; Protocol PRN Reason: per Hypoglycemia Standing Ord. Hydromorphone HCl (Hydromorphone Hcl 0.5 Mg/0.5 Ml Syringe) 0.5 mg IVPUSH Q3H PRN; Protocol PRN Reason: Pain, Severe (Pain Scale 7-10) Last Admin: 04/05/23 20:25 Dose: 0.5 mg Documented By: BOB Losartan Potassium (Losartan Potassium 50 Mg Tablet) 100 mg PO MoWeFr@2100 [facility]; Protocol Last Admin: 04/04/23 20:38 Dose: 100 mg Documented By: [place] Metoprolol Succinate (Metoprolol Succinate Er 25 Mg Tab.Er.24h) 75 mg PO DAILY [facility]; Protocol Last Admin: 04/05/23 08:30 Dose: 75 mg Documented By: MIRTA Ondansetron HCl (Ondansetron Hcl 4 Mg/2 Ml Vial) 4 mg IVPUSH Q8H PRN PRN Reason: Nausea and Vomiting Last Admin: 04/05/23 13:59 Dose: 4 mg Documented By: MIRTA Oxycodone HCl (Oxycodone Hcl Immed Release 5 Mg Tablet) 5 mg PO Q6H PRN PRN Reason: Pain, Moderate(Pain Scale 4-6) Last Admin: 04/06/23 02:23 Dose: 5 mg Documented By: NATA Promethazine HCl (Promethazine Hcl 25 Mg Tablet) 25 mg PO Q8H PRN PRN Reason: Nausea and Vomiting Last Admin: 04/04/23 16:10 Dose: 25 mg Documented By: TARI Senna/Docusate Sodium (Sennosides/Docusate Sodium Tablet) 1 tab PO BEDTIME PRN PRN Reason: Constipation Sodium Chloride (0.9 % Sodium Chloride Flush 3 Ml Syringe) 3 ml [facility] Last Admin: 04/05/23 20:26 Dose: 3 ml Documented By: BOB Zolpidem Tartrate (Zolpidem Tartrate 5 Mg Tablet) 5 mg PO BEDTIME PRN PRN Reason: Insomnia Labs 04/06/23 05:18 04/05/23 05:31 Labs: Laboratory Results - last 24 hr 04/05/23 04/05/23 04/05/23 11:10 16:07 20:19 MCV MCH MCHC RDW Plt Count MPV Immature Gran % (Auto) Neut % (Auto) Lymph % (Auto) [place] % (Auto) Eos % (Auto) Baso % (Auto) Lymph # (Auto) [place] # (Auto) Eos # (Auto) Baso # (Auto) Abs Immat Gran (auto) Absolute Neuts (auto) Absolute Nucleated RBC Nucleated RBC % (auto) POC Glucose 134 H 132 H 146 H 04/06/23 04/06/23 05:18 07:29 MCV 82.8 MCH 25.7 L MCHC 31.1 RDW 15.9 Plt Count 167 MPV 9.2 L Immature Gran % (Auto) 0.3 Neut % (Auto) 58.8 Lymph % (Auto) 20.2 [place] % (Auto) 8.1 Eos % (Auto) 12.1 H Baso % (Auto) 0.5 Lymph # (Auto) 1.3 [place] # (Auto) 0.5 Eos # (Auto) 0.8 H Baso # (Auto) 0.0 Abs Immat Gran (auto) 0.02 Absolute Neuts (auto) 3.8 Absolute Nucleated RBC 0.000 Nucleated RBC % (auto) 0.0 POC Glucose 83 Procedures Date of Service Date of Service: 04/06/23 Progress Note: A&P Assessment and plan (1) Triple negative malignant neoplasm of breast: Status: Acute Plan POD #2 s/p right MRM, continues to do well. GARY with decreasing output, more serous in nature with some clot. H/H remains stable. Incision clean, site tender. Continue OOB/ambulation and IS use. Await pathology results. Possibly home later today with VNA services if pain is improved. Time Spent With Patient Time: Total time managing care of this patient today ____ minutes. Quality Stroke Does the patient have a stroke diagnosis?: No VTE Prior VTE?: No VTE Risk Level:: Surgical - moderate VTE Device Contraindication: N/A - Device Ordered VTE Drug Contraindication: N/A - Med Ordered
[2023-04-06] MEDS: Metoprolol Succinate ER 25 MG TAB.ER.24H 75 MG PO (09:04)
[2023-04-06] MEDS: Enoxaparin Sodium 40 MG/0.4 ML SYRINGE SUBCUT (09:05)
[2023-04-06] MEDS: amLODIPine Besylate 10 MG TABLET PO (09:05)
[2023-04-06 11:35] LABS: Glucose, Whole Blood 131 mg/dL (60-115)
[2023-04-06] MEDS: polyethylene glycoL 3350 17 GM POWD.PACK PO (11:44)
--- NOTE | 2023-04-06 14:06 | MHC.CM.PN ---
Per surgical PA Patient will discharge tomorrow with [facility]. She has arranged for transportation home from her daughter.
--- NOTE | 2023-04-06 14:11 | P.DS_ITS ---
DS: Providers Provider Date of Service: 04/07/23 <Sasha Awad PA-C - Last Filed: 04/06/23 14:18> Date of admission: 04/04/23 05:58 <Sasha Awad PA-C - Last Filed: 04/06/23 14:18> Date of discharge: 04/07/23 <Sasha Awad PA-C - Last Filed: 04/06/23 14:18> Primary care physician: Roseline Ortega MD <Sasha Awad PA-C - Last Filed: 04/06/23 14:18> Attending physician on admission: Monroe Magallanes <Sasha Awad PA-C - Last Filed: 04/06/23 14:18> Consults: 04/04/23 11:53 Consult to Hospitalist Routine Comment: Consulting Provider: Hospitalist Reason For Exam: Med management s/p mastectomy; DM. HTN <Sasha Awad PA-C - Last Filed: 04/06/23 14:18> Attending physician on discharge: Monroe Magallanes <Sasha Awad PA-C - Last Filed: 04/06/23 14:18> Discharging clinician: Monroe Magallanes <Monroe Magallanes MD - Last Filed: 04/07/23 08:30> DS: Diagnosis Discharge Diagnosis (1) Triple negative malignant neoplasm of breast: Status: Acute <Sasha Awad PA-C - Last Filed: 04/06/23 14:18> DS: Summary Hospital Course Hospital Course: HPI AT ADMISSION: 82-year-old female patient presenting with large right breast invasive ductal carcinoma, previously underwent neoadjuvant treatment now presenting for right modified radical mastectomy. On examination the patient has residual firmness in the upper inner quadrant consistent with residual tumor measuring approximately 2-3 cm in diameter. HOSPITAL COURSE: On 04/04/23, a right modified radical mastectomy was performed by Dr. Magallanes without complication. The patient tolerated the procedure well and was admitted to the medical/surgical floor for observation. A hospitalist consult was obtained for management of her medical comorbdities. She had an uncomplicated recovery course. On POD #1, she was doing overall well with good pain control on IV and PRN analgesics. Her dressings were c/d/i. She had moderate serosanguineous GARY drain output. Her H/H had slightly drifted down. She was ambulated. She was started on a bowel regimen. She remained inpatient until POD #3 for pain control. On the day of discharge, she was tolerating a solid diet, ambulating without difficulty, her incisions were clean and GARY drain output had decreased and become more serous. She felt well and was discharged to home on 04/07/23 in stable condition with VNA services for GARY drain care. She is to follow up in the office in 1 week. <Sasha Awad PA-C - Last Filed: 04/06/23 14:18> Time spent discussing smoking cessation with patient: 3 to 10 minutes <Monroe Magallanes MD - Last Filed: 04/07/23 08:30> Status at Discharge Functional status at discharge: uses cane/walker <Sasha Awad PA-C - Last Filed: 04/06/23 14:18> Overall status at discharge: patient is progressing back to baseline <Sasha Awad PA-C - Last Filed: 04/06/23 14:18> Time Attestation Discharge coordination time: Less than 30 minutes <Sasha Awad PA-C - Last Filed: 04/06/23 14:18> Quality: Safe Use of Opioids Does Pt have an Active Cancer Diagnosis on the Problem List?: Yes <Sasha Awad PA-C - Last Filed: 04/06/23 14:18> Opioid Measure Date for [facility] [address] Report: 03/07/23 <Sasha Awad PA-C - Last Filed: 04/06/23 14:18> 03/08/23 <Monroe Magallanes MD - Last Filed: 04/07/23 08:30> Opioid Measure Time for [facility] Report: 14:16 <Sasha Awad PA-C - Last Filed: 04/06/23 14:18> 08:26 <Monroe Magallanes MD - Last Filed: 04/07/23 08:30> Quality: Stroke Does the patient have a stroke diagnosis?: No <Sasha Awad PA-C - Last Filed: 04/06/23 14:18> Physical Exam 2 Vital Signs: Vital Signs: Last Vital Signs Temp 96.8 F 04/06/23 07:26 Pulse 60 04/06/23 07:26 Resp 14 04/06/23 07:26 BP 141/66 H 04/06/23 07:26 Pulse Ox 100 04/06/23 07:26 O2 Del Method Room Air 04/06/23 07:26 O2 Flow Rate 2.0 04/04/23 11:19 BMI result Body Mass Index 23.6 <Sasha Awad PA-C - Last Filed: 04/06/23 14:18> Const: General: comfortable, no acute distress and alert <MELINA Morales Last Filed: 04/06/23 14:18> Orientation/consciousness: patient oriented x3 <Sasha Awad PA-C Last Filed: 04/06/23 14:18> Chest: Other: right mastectomy incision clean; GARY drains with decreasing output <Sasha Awad PA-C - Last Filed: 04/06/23 14:18> Other: right mastectomy incision clean; GARY drains with decreasing output , flaps clean without hematoma or erythema <Monroe Magallanes MD - Last Filed: 04/07/23 08:30> Chest/axillae images: 1. <Sasha Awad PA-C - Last Filed: 04/06/23 14:18> Chest/axillae images: 1. <Monroe Magallanes MD - Last Filed: 04/07/23 08:30> Resp: Effort & Inspection: normal respiratory effort <Sasha Awad PA-C - Last Filed: 04/06/23 14:18> Skin: General skin exam: no rashes or lesions noted <MELINA Morales Last Filed: 04/06/23 14:18> Neuro: General: patient oriented x3 <MELINA Morales Last Filed: 04/06/23 14:18> DS: Data Data Completed and Pending Pending studies at discharge: Pending at discharge 04/04/23 09:14 Surgical [PTH] Routine <Sasha Awad PA-C - Last Filed: 04/06/23 14:18> Labs on day of discharge: Laboratory Results - last 24 hr 04/05/23 04/05/23 04/06/23 16:07 20:19 05:18 WBC 6.4 RBC 3.19 L Hgb 8.2 L Hct 26.4 L MCV 82.8 MCH 25.7 L MCHC 31.1 RDW 15.9 Plt Count 167 MPV 9.2 L Immature Gran % (Auto) 0.3 Neut % (Auto) 58.8 Lymph % (Auto) 20.2 [place] % (Auto) 8.1 Eos % (Auto) 12.1 H Baso % (Auto) 0.5 Lymph # (Auto) 1.3 [place] # (Auto) 0.5 Eos # (Auto) 0.8 H Baso # (Auto) 0.0 Abs Immat Gran (auto) 0.02 Absolute Neuts (auto) 3.8 Absolute Nucleated RBC 0.000 Nucleated RBC % (auto) 0.0 POC Glucose 132 H 146 H 04/06/23 04/06/23 07:29 11:23 WBC RBC Hgb Hct MCV MCH MCHC RDW Plt Count MPV Immature Gran % (Auto) Neut % (Auto) Lymph % (Auto) [place] % (Auto) Eos % (Auto) Baso % (Auto) Lymph # (Auto) [place] # (Auto) Eos # (Auto) Baso # (Auto) Abs Immat Gran (auto) Absolute Neuts (auto) Absolute Nucleated RBC Nucleated RBC % (auto) POC Glucose 83 131 H <Sasha Awad PA-C - Last Filed: 04/06/23 14:18> Discharge Plan Discharge Anticipated Discharge Date/Time: 04/07/23 08:24 <Sasha Awad PA-C - Last Filed: 04/06/23 14:18> Patient Disposition: Home Health Service <Sasha Awad PA-C - Last Filed: 04/06/23 14:18> Discharge Diagnosis: s/p right modified radical mastectomy <Sasha Awad PA-C - Last Filed: 04/06/23 14:18> s/p right modified radical mastectomy <Monroe Magallanes MD - Last Filed: 04/07/23 08:30> Referrals: Roseline Ortega MD [Primary Care Provider] - 1 Week Monroe Magallanes MD [Physician] - 1 Week <Sasha Awad PA-C - Last Filed: 04/06/23 14:18> Discharge Medications: New oxycodone 5 mg tablet 5 mg PO Q4H PRN (Reason: pain (scale score 7-10)) Qty: 24 0RF Rx Instructions: Partial Fill upon patient request. Continued sennosides-docusate sodium [Senna with Docusate Sodium] 8.6-50 mg tablet 1 tab-cap PO BEDTIME PRN (Reason: Constipation) amlodipine [Norvasc] 10 mg tablet 10 mg PO DAILY gabapentin 300 mg capsule 300 mg PO BEDTIME PRN (Reason: nerve pain) albuterol sulfate 90 mcg/actuation HFA aerosol inhaler 2 puff inhalation Q6H PRN (Reason: wheezing) ondansetron 8 mg Tablet,Disintegrating 8 mg PO Q8H PRN (Reason: Nausea) Qty: 30 3RF fluticasone propionate 50 mcg/actuation spray,suspension 1 spray intranasal BID PRN (Reason: Nasal Congestion) glipizide 10 mg tablet 10 mg PO BID atorvastatin 20 mg tablet 20 mg PO BEDTIME metoprolol succinate 50 mg tablet extended release 24 hr 75 mg PO DAILY losartan 100 mg tablet 100 mg PO 3XW Rx Instructions: takes ~3X week at [id number] specific days <Sasha Awad PA-C - Last Filed: 04/06/23 14:18> Discharge Orders: Discharge Order (Routine); Ordered 04/07/23 Ordered By: Monroe Magallanes <Sasha Awad PA-C - Last Filed: 04/06/23 14:18> Diet: Diabetic diet <Sasha Awad PA-C - Last Filed: 04/06/23 14:18> Diabetic diet <Monroe Magallanes MD - Last Filed: 04/07/23 08:30> Activity on Discharge: No heavy lifting <Sasha Awad PA-C - Last Filed: 04/06/23 14:18> No heavy lifting <Monroe Magallanes MD - Last Filed: 04/07/23 08:30> Stand Alone Forms: Patient Portal Discharge page <Sasha Awad PA-C - Last Filed: 04/06/23 14:18> Activity Restrictions/Additional Instructions: If the incision area is tender, you may apply an ice pack for short intervals (No more than 20 minutes on, followed by at least 20 minutes off). Do not apply heat. Do not use creams, lotions, or topical antibiotics. These can cause infection or allergic reaction. Ok to shower. You have steri strips on your incision and these will fall off ~1 week. NO HEAVY LIFTING (>10lbs) with your right arm. GARY drain care- empty drain BID and as needed. Record output. Bring record to follow up appointment. Follow up in office. ([phone]) Call Your Doctor If: ? ? -Your temperature exceeds 101.5? F? ? ? -You experience excessive pain or swelling ? ? -You have an unexpected reaction to medication ? ? -You have excessive bleeding ? ? -You experience continued vomiting/nausea ? ? -Your incision begins to separate ?? ? -Your incision shows signs of infection such as increased redness, swelling, excessive pain, drainage (light blood or clear fluid is normal) or heat <Sasha Awad PA-C - Last Filed: 04/06/23 14:18> Care Plan Goals: Return to baseline health and resume normal activities following recovery period. <Sasha Awad PA-C - Last Filed: 04/06/23 14:18> Health Concerns: invasive ductal CA, right breast s/p right modified radical mastectomy diabetes mellitus <Sasha Awad PA-C - Last Filed: 04/06/23 14:18> Plan of Treatment: VNA services, GARY drain care F/u in office in 1 week <MELINA Morales Last Filed: 04/06/23 14:18> Assessment: Doing well post op. <Sasha Awad PA-C - Last Filed: 04/06/23 14:18> Patient Instructions: [place] Drain Care (DC), Mastectomy (DC) <MELINA Morales Last Filed: 04/06/23 14:18>
[2023-04-06] MEDS: Sennosides/Docusate Sodium TABLET 1 TAB PO ×2 (15:15→19:20)
[2023-04-06] MEDS: Milk of Magnesia 30 ML ORAL.SUSP PO (15:17)
[2023-04-06 15:45] VITALS: BP 166/74; PULSE 59; RESP 18; TEMP 36; O2SAT 96
--- NOTE | 2023-04-06 15:47 | HO.PM.IMPN ---
Subjective Subjective Date of Service: 04/06/23 Interval History: seen and examined this morning follow up medical consultation feeling well, ambulating, no dizziness, eating well, no BM Review of Systems Review of Systems: Yes all other systems are reviewed and are negative Constitutional Constitutional: Denies chills and Denies fever(s) Cardiovascular Cardiovascular: Denies chest pain and Denies dyspnea Respiratory Respiratory: Denies cough and Denies dyspnea Gastrointestinal Gastrointestinal: Denies abdominal pain Physical Exam Vital Signs: Vital Signs: Last Vital Signs Temp 96.8 F 04/06/23 15:45 Pulse 59 04/06/23 15:45 Resp 18 04/06/23 15:45 BP 166/74 H 04/06/23 15:45 Pulse Ox 96 04/06/23 15:45 O2 Del Method Room Air 04/06/23 15:45 O2 Flow Rate 2.0 04/04/23 11:19 BMI result Body Mass Index 23.6 Const: General: cooperative, comfortable, no acute distress, alert and awake Nutritional Appearance: average body habitus Orientation/consciousness: patient oriented x3 Chest: Other: [address] with serosangious drainage; dressing c/d/i Resp: Effort & Inspection: normal respiratory effort, able to speak in complete sentences, no respiratory distress and no use of accessory muscles Auscultation: clear to auscultation bilaterally Cardio: Rate: regular rate GI: Inspection: No distended Palpation (GI): Soft to palpation and nontender Neuro: General: patient oriented x3, moves all extremities and CN's II-XI intact bilaterally Extrem: General: Yes no pedal edema Objective Data Active Medications Albuterol Sulfate (Albuterol Sulfate 90 Mcg 8 Gm Inhaler) 2 puff INHALE Q6H PRN PRN Reason: wheezing Amlodipine Besylate (Amlodipine Besylate 10 Mg Tablet) 10 mg PO DAILY [facility]; Protocol Last Admin: 04/06/23 09:05 Dose: 10 mg Documented By: MIRTA Atorvastatin Calcium (Atorvastatin Calcium 20 Mg Tablet) 20 mg PO BEDTIME [facility] Last Admin: 04/05/23 20:25 Dose: 20 mg Documented By: BOB Dextrose (Dextrose 50 % 25 Gm/50 Ml Syringe) 25 gm IVPUSH Q15M PRN; Protocol PRN Reason: per Hypoglycemia Standing Ord. Enoxaparin Sodium (Enoxaparin Sodium 40 Mg/0.4 Ml Syringe) 40 mg SUBCUT Q24H [facility] Last Admin: 04/06/23 09:05 Dose: 40 mg Documented By: MIRTA Fluticasone Propionate (Fluticasone Propionate Nasal 16 Gm [place]) 1 spray NOSTRIL-B BID PRN PRN Reason: Nasal Congestion Gabapentin (Gabapentin 300 Mg Capsule) 300 mg PO BEDTIME PRN PRN Reason: nerve pain Glucose (Glucose Gel 15 Gm Gel..Gram.) 15 gm PO Q15M PRN; Protocol PRN Reason: per Hypoglycemia Standing Ord. Hydromorphone HCl (Hydromorphone Hcl 0.5 Mg/0.5 Ml Syringe) 0.5 mg IVPUSH Q3H PRN; Protocol PRN Reason: Pain, Severe (Pain Scale 7-10) Last Admin: 04/05/23 20:25 Dose: 0.5 mg Documented By: BOB Losartan Potassium (Losartan Potassium 50 Mg Tablet) 100 mg PO MoWeFr@2100 [facility]; Protocol Last Admin: 04/04/23 20:38 Dose: 100 mg Documented By: [place] Magnesium Hydroxide (Milk Of Magnesia 30 Ml Oral.Susp) 30 ml PO DAILY [facility] Last Admin: 04/06/23 15:17 Dose: 30 ml Documented By: MIRTA Metoprolol Succinate (Metoprolol Succinate Er 25 Mg Tab.Er.24h) 75 mg PO DAILY [facility]; Protocol Last Admin: 04/06/23 09:04 Dose: 75 mg Documented By: MIRTA Ondansetron HCl (Ondansetron Hcl 4 Mg/2 Ml Vial) 4 mg IVPUSH Q8H PRN PRN Reason: Nausea and Vomiting Last Admin: 04/05/23 13:59 Dose: 4 mg Documented By: MIRTA Oxycodone HCl (Oxycodone Hcl Immed Release 5 Mg Tablet) 5 mg PO Q6H PRN PRN Reason: Pain, Moderate(Pain Scale 4-6) Last Admin: 04/06/23 09:33 Dose: 5 mg Documented By: MIRTA Polyethylene Glycol (Polyethylene Glycol 3350 17 Gm Powd.Pack) 17 gm PO DAILY PRN PRN Reason: Constipation Last Admin: 04/06/23 11:44 Dose: 17 gm Documented By: MIRTA Promethazine HCl (Promethazine Hcl 25 Mg Tablet) 25 mg PO Q8H PRN PRN Reason: Nausea and Vomiting Last Admin: 04/04/23 16:10 Dose: 25 mg Documented By: TARI Senna/Docusate Sodium (Sennosides/Docusate Sodium Tablet) 1 tab PO BEDTIME [facility] Last Admin: 04/06/23 15:15 Dose: 1 tab Documented By: MIRTA Sodium Chloride (0.9 % Sodium Chloride Flush 3 Ml Syringe) 3 ml IVFLUSH QSHIFT [facility] Last Admin: 04/06/23 15:17 Dose: Not Given Documented By: MIRTA Non-Admin Reason: No Access Zolpidem Tartrate (Zolpidem Tartrate 5 Mg Tablet) 5 mg PO BEDTIME PRN PRN Reason: Insomnia Labs 04/06/23 05:18 04/05/23 05:31 Labs: Laboratory Results - last 24 hr 04/05/23 04/05/23 04/06/23 16:07 20:19 05:18 MCV 82.8 MCH 25.7 L MCHC 31.1 RDW 15.9 Plt Count 167 MPV 9.2 L Immature Gran % (Auto) 0.3 Neut % (Auto) 58.8 Lymph % (Auto) 20.2 [place] % (Auto) 8.1 Eos % (Auto) 12.1 H Baso % (Auto) 0.5 Lymph # (Auto) 1.3 [place] # (Auto) 0.5 Eos # (Auto) 0.8 H Baso # (Auto) 0.0 Abs Immat Gran (auto) 0.02 Absolute Neuts (auto) 3.8 Absolute Nucleated RBC 0.000 Nucleated RBC % (auto) 0.0 POC Glucose 132 H 146 H 04/06/23 04/06/23 07:29 11:23 MCV MCH MCHC RDW Plt Count MPV Immature Gran % (Auto) Neut % (Auto) Lymph % (Auto) [place] % (Auto) Eos % (Auto) Baso % (Auto) Lymph # (Auto) [place] # (Auto) Eos # (Auto) Baso # (Auto) Abs Immat Gran (auto) Absolute Neuts (auto) Absolute Nucleated RBC Nucleated RBC % (auto) POC Glucose 83 131 H Assessment and Plan (1) Invasive ductal carcinoma of right breast: Status: Chronic Plan 82 year old female with history of triple negative invasive carcinoma of the R breast, beta thalassemia, type 2 non insulin dependent type 2 diabetes, htn, and hld admitted to general surgery for R breast mastectomy with consult placed to hospitalist service for medical management. R -sided invasive ductal carcinoma s/p R mastectomy POD2 plan per general surgery n/v resolved. tolerating diet acute on chronic anemia multifactorial due to chemo, thalassemia and post op H/H stable HTN BP under adequate control continue metorpolol, losartan, amlodipine Type 2 DM diabetic diet follow POC BS hold glipizide HLD continue statin Thank you for this consult. Will will sign off at this time, feel free to re-consult us with any further questions Quality Stroke Does the patient have a stroke diagnosis?: No VTE Prior VTE?: No VTE Risk Level:: Surgical - moderate VTE Device Contraindication: N/A - Device Ordered VTE Drug Contraindication: N/A - Med Ordered
[2023-04-06 16:14] LABS: Glucose, Whole Blood 129 mg/dL (60-115)
[2023-04-06] MEDS: Atorvastatin Calcium 20 MG TABLET PO (19:20)
[2023-04-06] MEDS: Gabapentin 300 MG CAPSULE PO (19:20)
[2023-04-06] MEDS: Losartan Potassium 50 MG TABLET 100 MG PO (19:20)
[2023-04-06 20:01] LABS: Glucose, Whole Blood 167 mg/dL (60-115)
[2023-04-06 23:25] VITALS: BP 154/74; PULSE 67; RESP 18; TEMP 36.1; O2SAT 97
[2023-04-07] MEDS: oxyCODONE HCl Immed Release 5 MG TABLET PO (04:06)
[2023-04-07] MEDS: Milk of Magnesia 30 ML ORAL.SUSP PO (07:20)
[2023-04-07] MEDS: polyethylene glycoL 3350 17 GM POWD.PACK PO (07:20)
[2023-04-07] MEDS: Metoprolol Succinate ER 25 MG TAB.ER.24H 75 MG PO (07:20)
[2023-04-07] MEDS: amLODIPine Besylate 10 MG TABLET PO (07:21)
[2023-04-07 07:32] LABS: Glucose, Whole Blood 129 mg/dL (60-115)
[2023-04-07 07:34] VITALS: BP 182/83; PULSE 65; RESP 16; TEMP 36.4; O2SAT 98
--- NOTE | 2023-04-07 07:56 | PC.NURSE ---
Pt educated about GARY drain management, states understanding.
--- NOTE | 2023-04-07 08:30 | W.MHC.F2F ---
Service Date Service Date: 04/07/23 Encounter Date of encounter: 04/07/23 Encounter: Patient doing well post right mastectomy. GARY intact with mainly serous output. Reasons for Services Signs and symptoms assessed: Patient with decreased pain in the incisions but pain at the drain sites. GARY intact. VS stable. Reason for care home: wound care and other (GARY drain care) Reason for physical therapy: home safety and mobility Overseeing Care: Monroe Magallanes Homebound: Leaving the home is medically contraindicated at this time without the asist of a device and/or another person due th the listed conditions above and below. Reason homebound: unsteady gait / fall risk and weakness related to hospital stay Certification: Based on the above findings, I certify that this patient is confined to the home and needs intermittent care home care, physical therapy and/or speech therapy, or continues to need occupational therapy. The patient is under my care, and I have initiated the establishment of the plan of care. The patient will be followed by a physician who will periodically review the plan of care. Time Spent With Patient Time: Total time managing care of this patient today ____ minutes.
--- NOTE | 2023-04-07 08:54 | P.PNGS_ITS ---
Subjective Subjective Date of Service: 04/07/23 Interval history: Patient feels much improved today with decreased incisional pain. She does have some discomfort in the axilla near the drain sites. She is tolerating regular diet without nausea or vomiting. She is able to get out of bed and feels stronger today. The patient is eager to be discharged to home today. Physical Exam 2 Vital Signs: Vital Signs: Last Vital Signs Temp 97.6 F 04/07/23 07:34 Pulse 65 04/07/23 07:34 Resp 16 04/07/23 07:34 BP 182/83 H 04/07/23 07:34 Pulse Ox 98 04/07/23 07:34 O2 Del Method Room Air 04/07/23 07:34 O2 Flow Rate 2.0 04/04/23 11:19 BMI result Body Mass Index 23.6 Const: General: comfortable, no acute distress and alert O rientation/consciousness: patient oriented x3 Chest: Other: right mastectomy incision clean; GARY drains with decreasing output , flaps clean without hematoma or erythema Resp: Effort & Inspection: normal respiratory effort Skin: General skin exam: no rashes or lesions noted Neuro: General: patient oriented x3 Objective Data Active Medications Albuterol Sulfate (Albuterol Sulfate 90 Mcg 8 Gm Inhaler) 2 puff INHALE Q6H PRN PRN Reason: wheezing Amlodipine Besylate (Amlodipine Besylate 10 Mg Tablet) 10 mg PO DAILY KYLEE; Protocol Last Admin: 04/07/23 07:21 Dose: 10 mg Documented By: MILO Atorvastatin Calcium (Atorvastatin Calcium 20 Mg Tablet) 20 mg PO BEDTIME KYLEE Last Admin: 04/06/23 19:20 Dose: 20 mg Documented By: BEN Dextrose (Dextrose 50 % 25 Gm/50 Ml Syringe) 25 gm IVPUSH Q15M PRN; Protocol PRN Reason: per Hypoglycemia Standing Ord. Enoxaparin Sodium (Enoxaparin Sodium 40 Mg/0.4 Ml Syringe) 40 mg SUBCUT Q24H KYLEE Last Admin: 04/06/23 09:05 Dose: 40 mg Documented By: MIRTA Fluticasone Propionate (Fluticasone Propionate Nasal 16 Gm [place]) 1 spray NOSTRIL-B BID PRN PRN Reason: Nasal Congestion Gabapentin (Gabapentin 300 Mg Capsule) 300 mg PO BEDTIME PRN PRN Reason: nerve pain Last Admin: 04/06/23 19:20 Dose: 300 mg Documented By: BEN Glucose (Glucose Gel 15 Gm Gel..Gram.) 15 gm PO Q15M PRN; Protocol PRN Reason: per Hypoglycemia Standing Ord. Hydromorphone HCl (Hydromorphone Hcl 0.5 Mg/0.5 Ml Syringe) 0.5 mg IVPUSH Q3H PRN; Protocol PRN Reason: Pain, Severe (Pain Scale 7-10) Last Admin: 04/05/23 20:25 Dose: 0.5 mg Documented By: BOB Losartan Potassium (Losartan Potassium 50 Mg Tablet) 100 mg PO [id number] [facility]; Protocol Last Admin: 04/06/23 19:20 Dose: 100 mg Documented By: BEN Comments: pt wants to sleep Magnesium Hydroxide (Milk Of Magnesia 30 Ml Oral.Susp) 30 ml PO DAILY [facility] Last Admin: 04/07/23 07:20 Dose: 30 ml Documented By: MILO Metoprolol Succinate (Metoprolol Succinate Er 25 Mg Tab.Er.24h) 75 mg PO DAILY [facility]; Protocol Last Admin: 04/07/23 07:20 Dose: 75 mg Documented By: MILO Ondansetron HCl (Ondansetron Hcl 4 Mg/2 Ml Vial) 4 mg IVPUSH Q8H PRN PRN Reason: Nausea and Vomiting Last Admin: 04/05/23 13:59 Dose: 4 mg Documented By: MIRTA Oxycodone HCl (Oxycodone Hcl Immed Release 5 Mg Tablet) 5 mg PO Q6H PRN PRN Reason: Pain, Moderate(Pain Scale 4-6) Last Admin: 04/07/23 04:06 Dose: 5 mg Documented By: BEN Polyethylene Glycol (Polyethylene Glycol 3350 17 Gm Powd.Pack) 17 gm PO DAILY PRN PRN Reason: Constipation Last Admin: 04/07/23 07:20 Dose: 17 gm Documented By: MILO Promethazine HCl (Promethazine Hcl 25 Mg Tablet) 25 mg PO Q8H PRN PRN Reason: Nausea and Vomiting Last Admin: 04/04/23 16:10 Dose: 25 mg Documented By: TARI Senna/Docusate Sodium (Sennosides/Docusate Sodium Tablet) 1 tab PO BEDTIME [facility] Last Admin: 04/06/23 19:20 Dose: 1 tab Documented By: BEN Sodium Chloride (0.9 % Sodium Chloride Flush 3 Ml Syringe) 3 ml IVFLUSH QSHIFT [facility] Last Admin: 04/07/23 07:21 Dose: Not Given Documented By: MILO Non-Admin Reason: no IV Zolpidem Tartrate (Zolpidem Tartrate 5 Mg Tablet) 5 mg PO BEDTIME PRN PRN Reason: Insomnia Labs 04/06/23 05:18 04/05/23 05:31 Labs: Laboratory Results - last 24 hr 04/06/23 04/06/23 04/06/23 11:23 16:10 19:56 POC Glucose 131 H 129 H 167 H 04/07/23 07:10 POC Glucose 129 H Procedures Date of Service Date of Service: 04/07/23 Progress Note: A&P Assessment and plan (1) Triple negative malignant neoplasm of breast: Status: Acute Plan Patient is much improved today with decreased incisional pain. Her wounds are clean and intact without areas of erythema or seroma. Patient will be discharged to home with VNA. She is requested to record the drain output twice daily and return in approximately 1 week for wound check and possible drain removal. She should call sooner for any new concerns. Time Spent With Patient Time: Total time managing care of this patient today ____ minutes. Quality Stroke Does the patient have a stroke diagnosis?: No VTE Prior VTE?: No VTE Risk Level:: Surgical - moderate VTE Device Contraindication: N/A - Device Ordered VTE Drug Contraindication: N/A - Med Ordered
[2023-04-07 09:03] VITALS: BP 171/79; PULSE 69; RESP 16; TEMP 36.2; O2SAT 95
[2023-04-07] MEDS: Enoxaparin Sodium 40 MG/0.4 ML SYRINGE SUBCUT (09:13)
--- NOTE | 2023-04-07 09:57 | MHC.CM.PN ---
PT WILL DC HOME TODAY WITH [facility] SERVICES [facility] NOTIFIED VIA [facility] TO TRANSPORT
[2023-04-07 10:07] VITALS: BP 102/64
[2023-04-07 11:21] LABS: Glucose, Whole Blood 143 mg/dL (60-115)
== END 2023-04-07 12:18 | disposition home health service (06) | DRG 583 ==
LOC: HO.SSSA 06:04 → HO.S3 10:23
PROVIDERS: Nurse Practitioner; Physician Assistant Surgical; Admitting Provider Surgery; PCP Internal Medicine; Visit Provider Surgery
PROC: 0HTT0ZZ Resection of Right Breast, Open Approach (ICD-10-PCS; CPT 19307; principal; 2023-04-04 07:30)
DX: C50.211 Malignant neoplasm of upper-inner quadrant of right female breast (principal); D56.1 Beta thalassemia; E11.42 Type 2 diabetes mellitus with diabetic polyneuropathy; D64.89 Other specified anemias; I10 Essential (primary) hypertension; D64.81 Anemia due to antineoplastic chemotherapy; D63.0 Anemia in neoplastic disease; T45.1X5A Adverse effect of antineoplastic and immunosuppressive drugs, initial encounter; E78.5 Hyperlipidemia, unspecified; Z17.1 Estrogen receptor negative status [ER-]; Z79.84 Long term (current) use of oral hypoglycemic drugs; Z79.899 Other long term (current) drug therapy
CPT/HCPCS: 36415; 80048; 82565; 82947; 85025; 85027; 86850; 86900; 86901; 88309; J0131; J0665; J0690; J1100; J1170; J1650; J2405; J2704; J2795; J3010; J7120

== ENCOUNTER → 2023-04-04 05:58 | Outpatient (BNV) | payer OTHER, SELFPAY | PROVIDERS: Admitting Provider Surgery; PCP Internal Medicine; Visit Provider Surgery | DX: C50.919 Malignant neoplasm of unspecified site of unspecified female breast (principal) | CPT/HCPCS: 19307; 99024; G0180 ==

== ENCOUNTER → 2023-04-04 05:58 | Outpatient (BNV) | payer OTHER, SELFPAY | PROVIDERS: Admitting Provider Surgery; PCP Internal Medicine; Visit Provider Physician Assistant | DX: C50.911 Malignant neoplasm of unspecified site of right female breast (principal) | CPT/HCPCS: 99222; 99232 ==

== ENCOUNTER 2023-04-12 14:49 | Outpatient (AMB) | payer OTHER, SELFPAY ==
--- NOTE | 2023-04-12 14:50 | A.OFFVIS_ITS ---
Intake Vital Signs 04/12/23 14:59 Height 5 ft 8 in Weight 154 lb 5.177 oz BMI 23.5 BP 122/72 Blood Pressure Location Lt brachial Position Sitting Intake Visit Reasons: Drain Removal, R mod rad mastectomy Intake Note: Patient is seen in office for post op assessment post mastectomy of right breast. Pt c/o: some minor pain in the area, unsure of how much output in the drain, been changing daily, denies any other concerns, has nurse coming over to help Op:04/04/23 System Auditor Required: No Accompanied by: Other Relationship Allergies metformin Allergy (Intermediate, Verified 04/12/23 14:50) Vomiting HPI HPI Comments History of Present Illness Details 82-year-old female patient with a past h istory of hypertension, type 2 diabetes, beta thalassemia with a two-month history of a cystic mass of the right breast at the upper inner quadrant. The mass initially started as a small parsons sized lesion which gradually increased in size with associated discomfort. She denies a previous history of breast problems or breast surgery. She does have a family history of a sister with breast cancer who subsequently succumbed from the disease. Her sister lived in [facility] and she is uncertain of what treatments she received. She was previously evaluated by the breast center at [facility] and arrangements made for an ultrasound-guided core biopsy. A previous CT of the chest did revealed a suspicious appearing cystic mass corresponding to the palpable lesion. 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 The patient reports the lesion filled up with fluid within 24 hours of the previous aspiration. She is . She was evaluated by Dr. Christine and underwent neoadjuvant treatment for this locally advanced breast cancer. She returns today following a right breast mastectomy performed on 04/04/2023. Pathology revealed: Benign breast tissue with changes consistent with chemotherapy treatment; negative for residual carcinoma. - Unremarkable appearing skin and nipple . - Small intraductal papilloma. - 11 lymph nodes negative for metastatic carcinoma. - ypT0 yN0 AJCC Stage 8th ed. COMMENT: The patient's grade 3 invasive ductal carcinoma, triple negative (diagnosed at [facility]) is noted [facility], [facility] Medical History Peripheral neuropathy History of chemotherapy Hypokalemia Port-A-Cath in place Arthritis Elevated cholesterol Invasive ductal carcinoma of right breast Type 2 diabetes mellitus Hypertension Beta thalassemia Surgical History History of modified radical mastectomy of right breast (04/04/23) Hx of bilateral cataract extraction H/O colonoscopy History of delivery (1982) Family History Sister Breast cancer Social History Household Members: Children Housing: House Are you a primary client care consultant to a significant other at home: No Do you presently have 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 or 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 No hematoma or seroma is appreciated. Two drains remain intact. Output is approximately 60 mL per day per drain. We will leave drains in place. Skin Other: Warm, dry, no rash Neuro General: patient oriented x3 Assessment & Plan Assessment & Plan (1) Triple negative malignant neoplasm of breast: Code(s): C50.919 - Malignant neoplasm of unspecified site of unspecified female breast (2) Invasive ductal carcinoma of right breast: Comment: most recent chemotherapy 02/2023 Code(s): C50.911 - Malignant neoplasm of unspecified site of right female breast Plan Patient returns following right breast mastectomy. She tolerated the procedure well and her wounds are healing nicely. Drainage is still a bit high therefore the drains will be left in place. She will follow-up in 1 week for wound check. A copy of the pathology results were provided to the patient. Coding Level of Care Code Global (19134) Diagnoses Triple negative malignant neoplasm of breast C50.919 Invasive ductal carcinoma of right breast C50.911
[2023-04-12 14:59] VITALS: BP 122/72; BMI 23.5
== END 2023-04-12 15:11 | disposition home or self-care (01) ==
PROVIDERS: PCP Internal Medicine; Visit Provider Surgery
DX: C50.919 Malignant neoplasm of unspecified site of unspecified female breast (principal); C50.911 Malignant neoplasm of unspecified site of right female breast
CPT/HCPCS: 99024

== ENCOUNTER → 2023-04-12 14:49 | Outpatient (BNVA) | payer OTHER, SELFPAY | PROVIDERS: PCP Internal Medicine; Visit Provider Surgery | DX: Z48.3 Aftercare following surgery for neoplasm (principal); Z90.11 Acquired absence of right breast and nipple | CPT/HCPCS: 99212 ==

== ENCOUNTER 2023-04-20 11:20 | Outpatient (AMB) | payer OTHER, SELFPAY ==
--- NOTE | 2023-04-20 11:24 | MHC.OFFVIS ---
Intake Vital Signs 04/20/23 11:33 Height 5 ft 8 in Weight 167 lb BMI 25.4 BP 156/75 H Blood Pressure Location Lt brachial Position Sitting Intake Visit Reasons: 1 wk Drain Removal, R mod rad mastectomy Intake Note: Patient is seen in office for one week follow up visit, post mastectomy of right breast. 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 Required: No Accompanied by: Daughter Allergies metformin Allergy (Intermediate, Verified 04/20/23 11:33) Vomiting Medication List - Last Reconciled 04/20/23 by Monroe Magallanes MD albuterol sulfate 90 mcg/actuation 2 puffs inhalation Q6H PRN amlodipine (Norvasc) 10 mg PO DAILY atorvastatin 20 mg PO BEDTIME fluticasone propionate 50 mcg/actuation 1 spray intranasal BID PRN gabapentin 300 mg PO BEDTIME PRN glipizide 10 mg PO BID losartan 100 mg PO 3XW metoprolol succinate ER 75 mg PO DAILY ondansetron 8 mg PO Q8H PRN oxycodone 5 mg PO Q4H PRN sennosides-docusate sodium 8.6-50 mg (Senna with Docusate Sodium) 1 tab-cap PO BEDTIME PRN HPI HPI Comments History of Present Illness Details 82-year-old female patient with a past history of hypertension, type 2 diabetes, beta thalassemia with a two-month history of a cystic mass of the right breast at the upper inner quadrant. The mass initially started as a small parsons sized lesion which gradually increased in size with associated discomfort. She denies a previous history of breast problems or breast surgery. She does have a family history of a sister with breast cancer who subsequently succumbed from the disease. Her sister lived in [place] and she is uncertain of what treatments she received. She was previously evaluated by the breast center at [facility] and arrangements made for an ultrasound-guided core biopsy. A previous CT of the chest did revealed a suspicious appearing cystic mass corresponding to the palpable lesion. Subsequent ultrasound guided core biopsy revealed invasive ductal carcinoma, grade 3, ER/WI negative, HER2 Ollie negative. The patient reports the lesion filled up with fluid within 24 hours of the previous aspiration. She is . She was evaluated by Dr. Christine and underwent neoadjuvant treatment for this locally advanced breast cancer. She returns today following a right breast mastectomy performed on 04/04/2023. Pathology revealed: Benign breast tissue with changes consistent with chemotherapy treatment; negative for residual carcinoma. - Unremarkable appearing skin and nipple. - Small intraductal papilloma. - 11 lymph nodes negative for metastatic carcinoma. - ypT0 yN0 AJCC Stage 8th ed. COMMENT: The patient's grade 3 invasive ductal carcinoma, triple negative (diagnosed at [facility]) is noted She returns today for wound check and possible drain removal. Drainage has decreased to approximately 10-20 mL per day occasionally up to 30 mL per day. She feels tired and has soreness with the drains exit . She will be evaluated by [facility] radiation therapy for possible chest wall radiation. [facility] Medical History Peripheral neuropathy History of chemotherapy Hypokalemia Port-A-Cath in place Arthritis Elevated cholesterol Invasive ductal carcinoma of right breast Type 2 diabetes mellitus Hypertension Beta thalassemia Surgical History History of modified radical mastectomy of right breast (04/04/23) Hx of bilateral cataract extraction H/O colonoscopy History of delivery (1982) Family History Sister Breast cancer Social History Household Members: Children Housing: House Are you a primary adult care manager to a significant other at home: No Do you presently have 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) Alcohol intake: never Comment: slight unsteadiness Patient Tobacco Use Status: Never used Tobacco Advance Directives Date on File: 09/01/22 service: No Current occupational status: retired Female Reproductive History Menstrual Age of Menarche: 17 Review of Systems Const All systems reviewed & are unremarkable except as noted in HPI and below Physical Exam Vital Signs: Last Vital Signs BP 156/75 H 04/20/23 11:33 BMI result Body Mass Index 25.4 Const General: comfortable Nutritional Appearance: well nourished Orientation/consciousness: patient oriented x3 Limitations: no limitations Chest Other: Right chest mastectomy incision is clean, dry, and intact. No hematoma or seroma is appreciated. Two drains remain intact. Both drains were removed and dry sterile dressings applied. The patient tolerated the drain removal well. Skin Other: Warm, dry, no rash Neuro General: patient oriented x3 Assessment & Plan Assessment & Plan (1) Triple negative malignant neoplasm of breast: Code(s): C50.919 - Malignant neoplasm of unspecified site of unspecified female breast (2) Invasive ductal carcinoma of right breast: Comment: most recent chemotherapy 02/2023 Code(s): C50.911 - Malignant neoplasm of unspecified site of right female breast Plan Patient returns for postoperative visit and drain removal. Her wounds are clean, dry, and intact. Both drains were removed today and dry sterile dressings applied. I recommended she return approximately 1 month for wound check but shortly call should she note any swelling in the incisions. Coding Level of Care Code Global (27466) Diagnoses Triple negative malignant neoplasm of breast C50.919 Invasive ductal carcinoma of right breast C50.911
[2023-04-20 11:33] VITALS: BP 156/75; BMI 25.4
== END 2023-04-20 11:43 | disposition home or self-care (01) ==
PROVIDERS: PCP Internal Medicine; Visit Provider Surgery
DX: C50.919 Malignant neoplasm of unspecified site of unspecified female breast (principal); C50.911 Malignant neoplasm of unspecified site of right female breast
CPT/HCPCS: 99024

== ENCOUNTER → 2023-04-20 11:20 | Outpatient (BNVA) | payer OTHER, SELFPAY | PROVIDERS: PCP Internal Medicine; Visit Provider Surgery | DX: Z48.1 Encounter for planned postprocedural wound closure (principal); C50.211 Malignant neoplasm of upper-inner quadrant of right female breast; Z17.1 Estrogen receptor negative status [ER-]; Z90.11 Acquired absence of right breast and nipple | CPT/HCPCS: 99212 ==

== ENCOUNTER 2023-05-18 10:57 | Outpatient (AMB) | payer OTHER, SELFPAY ==
--- NOTE | 2023-05-18 10:59 | MHC.OFFVIS ---
Intake Vital Signs 05/18/23 11:10 Height 5 ft 8 in Weight 156 lb 8 oz BMI 23.8 BP 146/76 H Blood Pressure Location Lt brachial Position Sitting Pulse 99 Intake Visit Reasons: 1 mth follow up mastectomy Intake Note: Patient is seen in office for one month follow up visit, post mastectomy of right breast. 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 The mass initially started as a small parsons sized lesion which gradually increased in size with associated discomfort. She denies a previous history of breast problems or breast surgery. She does have a family history of a sister with breast cancer who subsequently succumbed from the disease. Her sister lived in [facility] [place] and she is uncertain of what treatments she received. She was previously evaluated by the breast center at [facility] and arrangements made for an ultrasound-guided core biopsy. A previous CT of the chest did revealed a suspicious appearing cystic mass corresponding to the palpable lesion. 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 The patient reports the lesion filled up with fluid within 24 hours of the previous aspiration. She is . She was evaluated by Dr. Christine and underwent neoadjuvant treatment for this locally advanced breast cancer. Right modified radical mastectomy performed on 04/04/2023 revealed the following pathology results: Benign breast tissue with changes consistent with chemotherapy treatment; negative for residual carcinoma. Unremarkable appearing skin and nipple. Small intraductal papilloma. Eleven lymph nodes negative for metastatic carcinoma. YpT0 ypN0 AJCC stage 8th addition (previously diagnosed grade 3 invasive ductal carcinoma, triple negative, [facility] diagnosis). Since drain removal she reports no further fluid below the flaps. In general she feels well. She was evaluated by radiation therapy and declined radiation therapy. She will follow-up with Dr. Christine regarding adjuvant therapy. [facility] Medical History Peripheral neuropathy History of chemotherapy Hypokalemia Port-A-Cath in place Arthritis Elevated cholesterol Invasive ductal carcinoma of right breast Type 2 diabetes mellitus Hypertension Beta thalassemia Surgical History History of modified radical mastectomy of right breast (04/04/23) Hx of bilateral cataract extraction H/O colonoscopy History of delivery (1982) Family History Sister Breast cancer Social History Household Members: Children Housing: House Are you a primary career services representative to a significant other at home: No Do you presently have 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 No redness or discharge is identified. No palpable seroma remains. Chest/axillae images: 1. Right mastectomy Skin Other: Warm, dry, no rash Neuro General: patient oriented x3 Assessment & Plan Assessment & Plan (1) Triple negative malignant neoplasm of breast: Code(s): C50.919 - Malignant neoplasm of unspecified site of unspecified female breast (2) Invasive ductal carcinoma of right breast: Comment: most recent chemotherapy 02/2023 Code(s): C50.911 - Malignant neoplasm of unspecified site of right female breast Plan Patient continues to improve following right mastectomy. Her wounds are clean and intact without evidence of recurrent disease. She does complain of dry mouth following the chemotherapy. She will be following up with Dr. Emmett cohen. She is declined radiation therapy to the chest wall. She will return in 3 months for follow-up breast examination. She is welcome to return sooner for any new concerns. Coding Level of Care Code Global (41446) Diagnoses Triple negative malignant neoplasm of breast C50.919 Invasive ductal carcinoma of right breast C50.911
[2023-05-18 11:10] VITALS: BP 146/76; PULSE 99; BMI 23.8
== END 2023-05-18 11:13 | disposition home or self-care (01) ==
PROVIDERS: PCP Internal Medicine; Visit Provider Surgery
DX: C50.919 Malignant neoplasm of unspecified site of unspecified female breast (principal); C50.911 Malignant neoplasm of unspecified site of right female breast
CPT/HCPCS: 99024

== ENCOUNTER → 2023-05-18 10:57 | Outpatient (BNVA) | payer OTHER, SELFPAY | PROVIDERS: PCP Internal Medicine; Visit Provider Surgery | DX: Z48.3 Aftercare following surgery for neoplasm (principal); C50.911 Malignant neoplasm of unspecified site of right female breast; Z90.11 Acquired absence of right breast and nipple | CPT/HCPCS: 99212 ==

== ENCOUNTER 2023-06-11 09:16 | Outpatient (RCR) | payer OTHER, SELFPAY ==
--- NOTE | 2023-06-11 11:00 | MHC.PT.EP ---
[facility] Office [place] Office [employer] Office [address] Eb Stock [address] [phone] F: [phone] F: [phone] F: [phone] F: [phone] Physical Therapy Plan of Care Date of Evaluation: 06/11/23 Date of Surgery: 04/04/23 Diagnosis: right arm stiffness after mastectomy (RL) Assessment: pt is a 82 y/o female presenting to physical therapy w/ referring diagnosis of right arm stiffness after mastectomy. Impairments include pain, decreased range of motion, decreased strength, impaired functional mobility, impaired postural awareness, and altered ambulation mechanics. pt is a good candidate for skilled PT due to age, potential remediation of impairments, typical disease/condition progression and prognosis, comorbidities, and motivation. pt would benefit from skilled PT intervention to provide a tailored strengthening and stretching exercise program, functional training, gait training, postural re-training, neuromuscular re-education, modalities as needed for pain, equipment safety demonstration. Frequency and Duration: The patient will be seen 2x/wk for 6 wks Short Term Goals: pt will be I w/ HEP to promote self-management of condition. pt will improve R shoulder flexion by at least 10 degrees to promote ease for reaching objects on higher shelves for meal prep. Snf Goals: pt will report a statistically significant improvement in self-reported outcome measure, SPADI, to promote return to PLOF. pt will improve R shoulder functional ER to at least subocciput to promote ease in upper body ADLs. pt will improve R shoulder strength by at least 1 MMT grade in shoulder flexion to promote ease in carrying purse. Treatment Plan: Modalities to reduce pain, spasms and effusion. Manual therapy to restore motion and function. Therapeutic exercise to improve strength and flexibility. Neuromuscular re-education for posture and balance. Therapeutic activities to return to functional activities of daily living. Electronically signed by: Eliana Tapia PT, DPT Please sign and return to therapist. Thank you for your referral.
--- NOTE | 2023-07-27 08:44 | MHC.PT.DC ---
[facility] [place] Office [place] Office [place] Office [address] [place] [address] [phone] F: [phone] F: [phone] F: [phone] F: [phone] Physical Therapy Discharge Report Diagnosis: right arm stiffness after mastectomy (RL) Date of Surgery: 04/04/23 Date of Evaluation: 06/11/23 Date of Discharge: 07/27/23 Treatments to Date: 1 Cancellations to Date: 3 No Shows to Date: 1 Discharge Status: Visit Non-compliance Discharge Summary: The patient has not attended any physical therapy visits in 46 days. She is still undergoing active cancer treatments which is most likely limiting her ability to attend/participate in outpatient PT. She is discharged from this physical therapy plan of care at this time. Electronically signed by: Elaina Tapia PT, DPT Please sign and return to therapist. Thank you for your referral.
== END 2023-07-27 08:45 | disposition home or self-care (01) ==
LOC: HO.PT 09:16
PROVIDERS: PCP Internal Medicine; Visit Provider Internal Medicine
DX: Z85.3 Personal history of malignant neoplasm of breast (principal); M25.69 Stiffness of other specified joint, not elsewhere classified; Z90.11 Acquired absence of right breast and nipple
CPT/HCPCS: 97140; 97162

== ENCOUNTER 2023-06-12 08:36 | Outpatient (REF) | payer OTHER, SELFPAY ==
--- NOTE | ~2023-06-12 | US_ITS ---
EXAMINATION: US ABDOMEN COMPLETE CLINICAL INFORMATION: History of breast cancer and abnormal liver enzymes. COMPARISON: Ultrasound abdomen limited 11/04/2022. CT abdomen and pelvis 09/08/2022. TECHNIQUE: Real-time imaging of the abdominal viscera. Technically limited study secondary to body habitus. FINDINGS: PANCREAS: Normal. ABDOMINAL AORTA: Atherosclerotic aorta without aneurysm. INFERIOR VENA CAVA: Visualized portions are normal. LIVER: 6 mm coarse calcification in the left hepatic lobe unchanged from prior CT scan and consistent with a granuloma. The liver is normal in size. The liver contour is normal. Parenchymal echogenicity is normal. No focal hepatic lesion. There is no intrahepatic biliary duct dilatation seen. GALLBLADDER: Normal. The gallbladder is physiologically distended without evidence of stones, sludge, polyps, wall thickening or pericholecystic fluid. COMMON BILE DUCT: Normal in caliber measuring 0.3 cm in diameter. RIGHT KIDNEY: Normal. No hydronephrosis. No renal calculi or focal parenchymal lesions. The kidney measures 10.9 cm in maximum dimension. LEFT KIDNEY: Normal. No hydronephrosis. No renal calculi or focal parenchymal lesions. The kidney measures 11.9 cm in maximum dimension. SPLEEN: Normal. The spleen measures 7.7 cm in maximum dimension. FREE FLUID: None. US/US abdomen complete IMPRESSION: No sonographic evidence of hepatic metastatic disease. No biliary ductal dilatation.
== END 2023-06-12 08:37 | disposition home or self-care (01) ==
LOC: HO.US 08:36
PROVIDERS: PCP Internal Medicine; Visit Provider Internal Medicine
DX: R74.8 Abnormal levels of other serum enzymes (principal)
CPT/HCPCS: 76700

== ENCOUNTER 2023-06-18 08:54 | Emergency (ER) | payer OTHER, SELFPAY ==
[2023-06-18] VITALS (7 sets, daily range): BP systolic 122–151; BP diastolic 58–72; PULSE 80–98; RESP 18–22; TEMP 36.6; O2SAT 92–100; BMI 21.6
--- NOTE | ~2023-06-18 | CT_ITS ---
EXAMINATION: CT HEAD WITHOUT CONTRAST CT CERVICAL SPINE WITHOUT CONTRAST CLINICAL INFORMATION: 82-year-old female with dizziness, status post fall COMPARISON: None. TECHNIQUE: Imaging was performed from the skull base to vertex without intravenous administration of contrast. In addition, helical noncontrast CT imaging was acquired through the cervical spine and source images were reviewed along with axial reconstructions and sagittal and coronal MPRs. This CT examination was performed using dose optimization techniques as appropriate, variously including the following: *Automated exposure control. *Adjustment of mA and/or kV according to patient size (this includes techniques or standardized protocols for targeted exams where dose is matched to indication/reason for exam; i.e. extremities or head). *Use of iterative reconstruction technique. DLP: 666 mGy-cm FINDINGS: Head: There is no evidence of acute intracranial hemorrhage or edematous territorial infarction. [place]-white matter differentiation is preserved. There is no abnormal attenuation within the brain parenchyma. The ventricles are normal in morphology and size. No evidence for obstructive hydrocephalus. No abnormal mass effect or midline shift. No extra-axial fluid collections. Partially visualized paranasal sinuses reveal mucosal thickening through the left frontal sinus, complete opacification of the right frontal sinus, partial opacification of ethmoidal sinuses and sphenoidal sinuses, almost completely opacified left maxillary sinus, mildly opacified right maxillary sinus and well aerated mastoids. Cervical Spine: The atlantooccipital and atlantoaxial articulations remain well aligned. Straightening of the normal cervical lordosis. Otherwise, there is anatomic alignment of the vertebral bodies and posterior elements. No evidence of acute fracture or subluxation. There are mild changes of degenerative spondylosis with marginal spurring. The vertebral body heights and disc spaces are maintained. There is no prevertebral soft tissue swelling. The thyroid gland is multinodular most likely due to goiter. Remaining cervical soft tissues are within normal limits. The lung apices demonstrate no abnormalities. CT/CT cervical spine wo IV con IMPRESSION: 1. No CT evidence of acute intracranial hemorrhage or edematous territorial infarction. 2. No CT evidence of acute cervical spine fracture or traumatic subluxation. 3. Paranasal sinus disease. 4. Multinodular goiter
--- NOTE | 2023-06-18 09:18 | ECG_ITS ---
Test Reason : DIZZINESS Blood Pressure : / mmHG Vent. Rate : 102 BPM Atrial Rate : 102 BPM P-R Int : 090 ms QRS Dur : 070 ms QT Int : 230 ms P-R-T Axes : -21 -10 -56 degrees QTc Int : 299 ms Sinus tachycardia with short UT with Premature supraventricular complexes and with occasional Premature ventricular complexes Minimal voltage criteria for LVH, may be normal variant ( R in aVL ) Nonspecific ST and T wave abnormality Abnormal ECG When compared with ECG of 04-NOV-2022 16:07, Premature ventricular complexes are now Present Premature supraventricular complexes are now Present Referred By: Generic ED Physician Electronically Signed By:ALPHONSE GRIFFIN
[2023-06-18 09:40] LABS: MANUAL DIFF FLAG NO
[2023-06-18 09:43] LABS: Basophils Percent Auto 0.4 % (0-2); Eosinophils Absolute Auto 0.1 X10*3/uL (0.0-0.4); Eosinophils Percent Auto 0.7 % (0-4); Hematocrit 33.3 % (37.0-47.0); Hemoglobin 10.6 g/dl (12.0-16.0); Imm Gran Abs Auto 0.03 X10*3/uL (0.00-0.03); Imm Gran Pct Auto 0.3 % (0.0-0.4); Lymphocytes Percent Auto 9.7 % (20-40); Mean Corpuscular HGB Conc 31.8 g/dl (31.0-35.0); Mean Corpuscular Hemoglobin 23.9 pg (27.0-33.0); Mean Corpuscular Volume 75.2 fL (80.0-98.0); Mean Platelet Volume 9.2 fL (9.4-12.3); Monocytes Absolute Auto 0.8 X10*3/uL (0.1-1.2); Monocytes Percent Auto 7.6 % (2-11); Neutrophils Absolute Auto 8.4 x10*3/uL (2.0-8.3); Neutrophils Percent Auto 81.3 % (45-73); Platelet Count 310 X10*3/uL (160-400); Red Blood Count 4.43 X10*6/uL (4.20-5.50); Red Cell Distribution Width 15.5 % (11.0-16.0); White Blood Count 10.3 X10*3/uL (4.8-10.8)
[2023-06-18 10:02] LABS: Anion Gap 14 (12-20); Blood Urea Nitrogen 8 mg/dL (9-16); Calcium 10.1 mg/dL (8.4-10.2); Carbon Dioxide 24 mmol/L (22-29); Chloride 107 mmol/L (96-108); Creatinine Clr Calc Pharmacy 96.1; Estimated Glomerular Filt Rate > 60; Glucose Random 39 mg/dL (60-115); Sodium 142 mmol/L (135-145); Troponin-I High Sensitivity 10.1 ng/L (<3.5-17.0)
--- NOTE | 2023-06-18 10:08 | ED.GENADULT ---
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 Reports that she started feeling weak on Sunday. Yesterday, she felt acute worsening of the weakness with dizziness and started to see double vision. This morning, when she stood up to use the kommode and immediately felt weak and dizzy, fell to the ground. Denies LOC, no head strike. Called her daughter afterwards and came in to the ER. Daughter is concerned that her mom is using too much magic mouth wash . Per patient, she has been having difficulty tolerating PO intake secondary to mouth sores. She saw her oncologist recently and was prescribed magic mouth wash. Patient states that she has not been eating much the past few days but still has been taking her medications. With episodes of dizziness and weakness, she reports palpitations. MD complaint: presyncope, weakness/dizziness Onset (ago): day(s) Severity: severe Severity scale (1-10): 10 Related Data Home Medications ?Medication ?Instructions ?Recorded ?Confirmed atorvastatin 20 mg tablet 20 mg PO BEDTIME 08/31/22 05/28/23 glipizide 10 mg tablet 10 mg PO BID 08/31/22 05/28/23 losartan 100 mg tablet 100 mg PO 3XW 08/31/22 05/28/23 metoprolol succinate 50 mg 75 mg PO DAILY 08/31/22 05/28/23 tablet,extended release 24 hr fluticasone propionate 50 1 spray intranasal BID PRN Nasal 12/15/22 05/28/23 mcg/actuation nasal Congestion spray,suspension albuterol sulfate 90 mcg/actuation 2 puff inhalation Q6H PRN wheezing 03/23/23 05/28/23 aerosol inhaler sennosides 8.6 mg-docusate sodium 1 tab-cap PO BEDTIME PRN 03/23/23 05/28/23 50 mg tablet (Senna with Docusate Constipation Sodium) Previous Rx's ?Medication ?Instructions ?Recorded ondansetron 8 mg disintegrating 8 mg PO Q8H PRN Nausea #30 tabs 09/19/22 tablet oxycodone 5 mg tablet 5 mg PO Q4H PRN pain (scale score 04/05/23 7-10) #24 tabs amlodipine 10 mg tablet (Norvasc) 10 mg PO DAILY #90 tabs 05/18/23 gabapentin 300 mg capsule 300 mg PO BEDTIME PRN nerve pain 05/18/23 #90 caps potassium chloride 10 mEq 10 meq PO DAILY #30 tabs 05/28/23 tablet,extended release Magic Mouthwash 5 ml PO TID #240 mL 06/11/23 Diphen/Lido/Antacid 1:1:1 240 mL suspension ferrous sulfate 325 mg (65 mg 325 mg PO DAILY #60 tabs 06/11/23 iron) tablet megestrol 400 mg/10 mL (10 mL) 400 mg (10 mL) PO DAILY #300 mL 06/11/23 oral suspension Allergies Allergy/AdvReac Type Severity Reaction Status Date / Time metformin Allergy Intermediate Vomiting Verified 06/18/23 09:18 Review of Systems Review of Systems: Yes all other systems are reviewed and are negative PMFSH Past Medical History Medical History Peripheral neuropathy History of chemotherapy Hypokalemia Port-A-Cath in place Arthritis Elevated cholesterol Invasive ductal carcinoma of right breast Type 2 diabetes mellitus Hypertension Beta thalassemia Surgical History History of modified radical mastectomy of right breast (04/04/23) Hx of bilateral cataract extraction H/O colonoscopy History of delivery (1982) Family History Family History Sister Breast cancer Social History Social History Household Members: Children Housing: House Are you a primary progressive care unit registered nurse to a significant other at home: No Do you presently have 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 or other home services: Yes ([facility]) Alcohol intake: never Comment: slight unsteadiness Patient Tobacco Use Status: Never used Tobacco Smoked in Last 30 Days: No Use of substances other than those prescribed or required for medical reasons: No Advance Directives: Yes Advance Directives on File: Yes Advance Directives Date on File: 09/01/22 service: No Current occupational status: retired Physical Exam ED Vital Signs: Vital Signs - 24 hr 06/18/23 10:23 06/18/23 10:57 06/18/23 10:57 Temperature Pulse Rate 85 80 81 Respiratory Rate 18 Blood Pressure 151/64 H 127/62 129/66 Pulse Oximetry 92 Oxygen Delivery Method Room Air 06/18/23 10:58 06/18/23 11:55 06/18/23 14:16 Temperature Pulse Rate 98 83 80 Respiratory Rate 22 H Blood Pressure 122/65 125/58 L 134/66 Pulse Oximetry 98 98 Oxygen Delivery Method Room Air Room Air 06/18/23 15:28 Temperature 98 F Pulse Rate 84 Respiratory Rate 18 Blood Pressure 138/70 Pulse Oximetry 100 Oxygen Delivery Method Room Air BMI result Body Mass Index 21.6 Appearance: Alert. Oriented X3. No acute distress. Head: normocephalic, atraumatic. Eyes: Pupils equal, round and reactive to light. ENT: Pharynx w/ moist mucus membranes, erythematous buccal mucosa and tongue. no lesions. No tonsillar swelling or exudate. Neck: Normal inspection. Neck supple. CVS: Normal heart rate and rhythm. Pulses normal. Respiratory: No respiratory distress. Breath sounds normal. Abdomen: Soft and nontender. Skin: Skin warm and dry. Normal skin color. Normal skin turgor. No rashes. Extremities: No lower extremity edema. No joint swelling. Neuro/psych: Oriented X 3. Nonfocal Medications Administered Discontinued Medications Generic Name Dose Route Start Last Admin Trade Name Freq PRN Reason Stop Dose Admin Dextrose 250 mls @ 750 mls/hr 06/18/23 10:55 06/18/23 11:45 D10 IV Infused Q15M PRN Infusion per Hypoglycemia Standing Ord. 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 Patient reports worsening of weakness and dizziness with presyncope episode this morning. On evaluation, patient is alert, oriented, and asymptomatic but her blood sugar is 38. Patient is eating food and plan to recheck in 15 minutes. Considering patient's poor PO intake and continuance of diabetic and hypertensive medications, high clinical suspicion for presyncope secondary to hypoglycemia. Ordered head CT to evaluate for bleed or infarct. 13:19- On reevaluation, patient states that she is feeling much better, denies any weakness or dizziness this time. Will order repeat POC glucose and ECG. On further questioning, she states that she did not eat anything prior to arriving at the ER today and skipped breakfast and lunch yesterday, but still took her medications. High clinical suspicion that her presentation is due to hypoglycemia. - Will trial PO and ambulation. 15:02- Patient eating lunch, ambulated with walker to restroom without difficulty. Discussed importance of monitoring at home blood glucose, especially when symptomatic. Encouraged her to check blood sugars at home when she begins to feel dizzy. Discussed holding glipizide until appetite fully returns, follow up with primary care. Daughter and patient in agreement with plan and comfortable to discharge home. Differential Diagnosis Differential Diagnoses: The differential diagnosis associated with the presentation includes hypokalemia, vasovagal syncope, hypoglycemia, orthostatic hypotension, TIA, CVA, Admission/Observation Consideration of admission/observation: Escalation of care including admission/observation considered recurrent hypoglycemia Lab Data MDM Lab Attestation statement: I reviewed the patient's lab results. severe hypoglycemia hypokalemia 06/18/23 09:36 06/18/23 09:36 Labs: Lab Results 06/18/23 06/18/23 06/18/23 Range/Units 09:36 10:29 11:52 WBC 10.3 (4.8-10.8) X10*3/uL RBC 4.43 (4.20-5.50) X10*6/uL Hgb 10.6 L (12.0-16.0) g/dl Hct 33.3 L (37.0-47.0) % MCV 75.2 L (80.0-98.0) fL MCH 23.9 L (27.0-33.0) pg MCHC 31.8 (31.0-35.0) g/dl RDW 15.5 (11.0-16.0) % Plt Count 310 (160-400) X10*3/uL MPV 9.2 L (9.4-12.3) fL Immature Gran % (Auto) 0.3 (0.0-0.4) % Neut % (Auto) 81.3 H (45-73) % Lymph % (Auto) 9.7 L (20-40) % Harmon % (Auto) 7.6 (2-11) % Eos % (Auto) 0.7 (0-4) % Baso % (Auto) 0.4 (0-2) % Lymph # (Auto) 1.0 L (1.2-4.9) X10*3/uL Harmon # (Auto) 0.8 (0.1-1.2) X10*3/uL Eos # (Auto) 0.1 (0.0-0.4) X10*3/uL Baso # (Auto) 0.0 (0.0-0.2) X10*3/uL Abs Immat Gran (auto) 0.03 (0.00-0.03) X10*3/uL Absolute Neuts (auto) 8.4 H (2.0-8.3) x10*3/uL Absolute Nucleated RBC 0.000 (0.0-0.012) X10*3/uL Nucleated RBC % (auto) 0.0 (0.0-0.2) /100WBC Sodium 142 (135-145) mmol/L Potassium 3.0 L (3.3-5.1) mmol/L Chloride 107 (96-108) mmol/L Carbon Dioxide 24 (22-29) mmol/L Anion Gap 14 (12-20) BUN 8 L (9-16) mg/dL Creatinine 0.48 L (0.5-1.4) mg/dL Estim Creat Clear Calc 96.1 Estimated GFR > 60 POC Glucose 36 L* 154 H (60-115) mg/dL Random Glucose 39 L* (60-115) mg/dL Calcium 10.1 (8.4-10.2) mg/dL Troponin I High Sens 10.1 (<3.5-17.0) ng/L 06/18/23 Range/Units 13:31 WBC (4.8-10.8) X10*3/uL RBC (4.20-5.50) X10*6/uL Hgb (12.0-16.0) g/dl Hct (37.0-47.0) % MCV (80.0-98.0) fL MCH (27.0-33.0) pg MCHC (31.0-35.0) g/dl RDW (11.0-16.0) % Plt Count (160-400) X10*3/uL MPV (9.4-12.3) fL Immature Gran % (Auto) (0.0-0.4) % Neut % (Auto) (45-73) % Lymph % (Auto) (20-40) % Harmon % (Auto) (2-11) % Eos % (Auto) (0-4) % Baso % (Auto) (0-2) % Lymph # (Auto) (1.2-4.9) X10*3/uL Harmon # (Auto) (0.1-1.2) X10*3/uL Eos # (Auto) (0.0-0.4) X10*3/uL Baso # (Auto) (0.0-0.2) X10*3/uL Abs Immat Gran (auto) (0.00-0.03) X10*3/uL Absolute Neuts (auto) (2.0-8.3) x10*3/uL Absolute Nucleated RBC (0.0-0.012) X10*3/uL Nucleated RBC % (auto) (0.0-0.2) /100WBC Sodium (135-145) mmol/L Potassium (3.3-5.1) mmol/L Chloride (96-108) mmol/L Carbon Dioxide (22-29) mmol/L Anion Gap (12-20) BUN (9-16) mg/dL Creatinine (0.5-1.4) mg/dL Estim Creat Clear Calc Estimated GFR POC Glucose 335 H (60-115) mg/dL Random Glucose (60-115) mg/dL Calcium (8.4-10.2) mg/dL Troponin I High Sens (<3.5-17.0) ng/L Independent Interpretation I performed an independent interpretation of an: EKG and CT Scan Interpretation: sinus tachycardia with ventricular rate of [address] changes, no elevations or depressions 13:37- Repeat ECG is improved, premature ventricular & supraventricular complexes are no longer present. Radiology Impression Discussion of test interpretation with radiology: I have reviewed the radiologist's reading. Radiologist Impression: EXAMINATION: CT HEAD WITHOUT CONTRAST CT CERVICAL SPINE WITHOUT CONTRAST CLINICAL INFORMATION: 82-year-old female with dizziness, status post fall COMPARISON: None. TECHNIQUE: Imaging was performed from the skull base to vertex without intravenous administration of contrast. In addition, helical noncontrast CT imaging was acquired through the cervical spine and source images were reviewed along with axial reconstructions and sagittal and coronal MPRs. This CT examination was performed using dose optimization techniques as appropriate, variously including the following: *Automated exposure control. *Adjustment of mA and/or kV according to patient size (this includes techniques or standardized protocols for targeted exams where dose is matched to indication/reason for exam; i.e. extremities or head). *Use of iterative reconstruction technique. DLP: 666 mGy-cm FINDINGS: Head: There is no evidence of acute intracranial hemorrhage or edematous territorial infarction. [place]-white matter differentiation is preserved. There is no abnormal attenuation within the brain parenchyma. The ventricles are normal in morphology and size. No evidence for obstructive hydrocephalus. No abnormal mass effect or midline shift. No extra-axial fluid collections. Partially visualized paranasal sinuses reveal mucosal thickening through the left frontal sinus, complete opacification of the right frontal sinus, partial opacification of ethmoidal sinuses and sphenoidal sinuses, almost completely opacified left maxillary sinus, mildly opacified right maxillary sinus and well aerated mastoids. Cervical Spine: The atlantooccipital and atlantoaxial articulations remain well aligned. Straightening of the normal cervical lordosis. Otherwise, there is anatomic alignment of the vertebral bodies and posterior elements. No evidence of acute fracture or subluxation. There are mild changes of degenerative spondylosis with marginal spurring. The vertebral body heights and disc spaces are maintained. There is no prevertebral soft tissue swelling. The thyroid gland is multinodular most likely due to goiter. Remaining cervical soft tissues are within normal limits. The lung apices demonstrate no abnormalities. CT/CT cervical spine wo IV con IMPRESSION: 1. No CT evidence of acute intracranial hemorrhage or edematous territorial infarction. 2. No CT evidence of acute cervical spine fracture or traumatic subluxation. 3. Paranasal sinus disease. 4. Multinodular goiter Independent Historian Clinical information obtained from an independent historian. History obtained from or confirmed by: Other (2 daughters at bedside) External Record Review External record reviewed: Inpatient record, Outpatient record and Prior outpatient labs Chronic Conditions Patient?s care impacted by: Diabetes Critical Care Time Critical Care Time Critical Care Time: Yes Total Critical Care Time: 59 Attestation: I have personally provided critical care time exclusive of time spent on separately billable procedures. Time includes review of lab data, radiology results, repeating labs and bedside reassessments of mental status and monitoring for potential decompensation. Intervention performed as documented. Discharge Plan Discharge Clinical Impression: Hypoglycemia associated with type 2 diabetes mellitus Patient Disposition: Home, Self-Care Instructions: Hypoglycemia in a Person with Diabetes (ED), Type 2 Diabetes in the Older Adult (ED), What to Do if Your Blood Sugar is Low (ED), How to Check your Blood Sugar (ED), Type 2 Diabetes Management for Adults (ED) Additional Instructions: Your blood glucose on initial presentation was 38. This is very low and likely the cause of your weakness and dizziness. Other labs and scan obtained today were reassuring. It is important to check your blood sugar regularly before meals. Check blood sugar more frequently if you are feeling lightheaded or weak. Hold glipizide for now, especially if appetite is poor. If you develop new or worsening symptoms call 911 or come back to the ER for further evaluation. Prescriptions: No Action sennosides-docusate sodium [Senna with Docusate Sodium] 8.6-50 mg tablet 1 tab-cap PO BEDTIME PRN (Reason: Constipation) albuterol sulfate 90 mcg/actuation HFA aerosol inhaler 2 puff inhalation Q6H PRN (Reason: wheezing) oxycodone 5 mg tablet 5 mg PO Q4H PRN (Reason: pain (scale score 7-10)) Qty: 24 0RF Rx Instructions: Partial Fill upon patient request. ondansetron 8 mg Tablet,Disintegrating 8 mg PO Q8H PRN (Reason: Nausea) Qty: 30 3RF fluticasone propionate 50 mcg/actuation spray,suspension 1 spray intranasal BID PRN (Reason: Nasal Congestion) gabapentin 300 mg capsule 300 mg PO BEDTIME PRN (Reason: nerve pain) Qty: 90 3RF amlodipine [Norvasc] 10 mg tablet 10 mg PO DAILY Qty: 90 3RF potassium chloride 10 mEq Tablet Extended Release 10 meq PO DAILY Qty: 30 0RF ferrous sulfate 325 mg (65 mg iron) Tablet 325 mg PO DAILY Qty: 60 2RF megestrol 400 mg/10 mL (10 mL) Suspension 400 mg PO DAILY Qty: 300 0RF Magic Mouthwash Diphen/Lido/Antacid 1:1:1 240 mL Suspension 5 ml PO TID Qty: 240 0RF Rx Instructions: Lidocaine Viscous 2 % 80mL; diphenhydramine 12.5 mg/5 mL 80mL; aluminum-mag hydrox-simeth [id number]/5mL 80mL glipizide 10 mg tablet 10 mg PO BID atorvastatin 20 mg tablet 20 mg PO BEDTIME metoprolol succinate 50 mg tablet extended release 24 hr 75 mg PO DAILY losartan 100 mg tablet 100 mg PO 3XW Rx Instructions: takes ~3X week at [id number] specific days Referrals: Roseline Ortega MD [Primary Care Provider] - Interventions: ED Discharge Assessment Last Done: 06/18/23 15:28 Discharge Date/Time: 06/18/23 15:29 Print Language: Spanish
[2023-06-18 10:33] LABS: Glucose, Whole Blood 36 mg/dL (60-115)
[2023-06-18] MEDS: Potassium Chloride ER 20 MEQ TAB.ER.PRT 40 MEQ PO (11:02)
[2023-06-18] MEDS: Dextrose 10 % 250 ML 750 ML IV (11:14)
[2023-06-18 12:00] LABS: Glucose, Whole Blood 154 mg/dL (60-115)
--- NOTE | 2023-06-18 13:16 | ECG_ITS ---
Test Reason : DIZZINESS Blood Pressure : / mmHG Vent. Rate : 071 BPM Atrial Rate : 071 BPM P-R Int : 142 ms QRS Dur : 080 ms QT Int : 400 ms P-R-T Axes : 034 -06 007 degrees QTc Int : 434 ms Normal sinus rhythm Cannot rule out Anterior infarct , age undetermined Abnormal ECG When compared with ECG of 18-JUN-2023 09:23, Premature ventricular complexes are no longer Present Premature supraventricular complexes are no longer Present T wave inversion no longer evident in Lateral leads Referred By: Marleni Ascencio Electronically Signed By:ALPHONSE GRIFFIN
[2023-06-18 13:41] LABS: Glucose, Whole Blood 335 mg/dL (60-115)
[2023-08-02 10:43] LABS: Glucose, Whole Blood 32 mg/dL (60-115)
== END 2023-06-18 15:29 | disposition home or self-care (01) ==
PROVIDERS: Emergency Provider Emergency Medicine; PCP Internal Medicine
DX: E11.649 Type 2 diabetes mellitus with hypoglycemia without coma (principal); I10 Essential (primary) hypertension; Z88.8 Allergy status to other drugs, medicaments and biological substances
CPT/HCPCS: 36415; 70450; 72125; 80048; 82947; 84484; 85025; 93005; 96365; 99285

== ENCOUNTER → 2023-06-18 09:18 | Outpatient (BNV) | payer OTHER, SELFPAY | PROVIDERS: Emergency Provider Emergency Medicine; PCP Internal Medicine; Visit Provider Internal Medicine | DX: R94.31 Abnormal electrocardiogram [ECG] [EKG] (principal) | CPT/HCPCS: 93010 ==

== ENCOUNTER 2023-07-04 04:04 | Emergency (ER) | payer OTHER, SELFPAY ==
[2023-07-04 04:29] VITALS: BP 140/72; PULSE 102; RESP 18; TEMP 37.1; O2SAT 99; BMI 23.4
[2023-07-04 05:19] LABS: Influenza A PCR NEGATIVE (Negative); Influenza B PCR NEGATIVE (Negative); Resp Syncy Virus RNA Qual PCR NEGATIVE (Negative); SARS COV2 PCR INHOUSE NEGATIVE (Negative)
[2023-07-04 06:20] VITALS: BP 146/73; PULSE 87; RESP 16; TEMP 36.9; O2SAT 97
--- NOTE | 2023-07-04 06:35 | ED_ITS ---
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 Christine, DM2, HTN, beta thalassemia who presents to the ER for evaluation of recurrent hypoglycemia at home. She was seen here for the same on 06/17 - told to stop her glipizde and follow up with her PCP. She states she stopped the glipizide for 10 days. Her appetite has been good and she has been eating and drinking well. She restarted the glipizide on the 06/27. She started having episodes of dizziness and hypoglycemia yesterday morning with glucose ranging 30-50s. It would go up to 140s after eating. She is following w/ Dr. Christine and got her 1st immunotherapy last week and tolerated it well. MD complaint: hypoglycemia Onset (ago): day(s) Pain Consistency: intermittent Relieving factors: eating Associated symptoms: weakness and other (dizziness) Treatments prior to arrival: none Related Data Home Medications ?Medication ?Instructions ?Recorded ?Confirmed atorvastatin 20 mg tablet 20 mg PO BEDTIME 08/31/22 06/19/23 glipizide 10 mg tablet 10 mg PO BID 08/31/22 06/19/23 losartan 100 mg tablet 100 mg PO 3XW 08/31/22 06/19/23 metoprolol succinate 50 mg 75 mg PO DAILY 08/31/22 06/19/23 tablet,extended release 24 hr fluticasone propionate 50 1 spray intranasal BID PRN Nasal 12/15/22 06/19/23 mcg/actuation nasal Congestion spray,suspension albuterol sulfate 90 mcg/actuation 2 puff inhalation Q6H PRN wheezing 03/23/23 06/19/23 aerosol inhaler sennosides 8.6 mg-docusate sodium 1 tab-cap PO BEDTIME PRN 03/23/23 06/19/23 50 mg tablet (Senna with Docusate Constipation Sodium) Previous Rx's ?Medication ?Instructions ?Recorded ondansetron 8 mg disintegrating 8 mg PO Q8H PRN Nausea #30 tabs 09/19/22 tablet oxycodone 5 mg tablet 5 mg PO Q4H PRN pain (scale score 04/05/23 7-10) #24 tabs amlodipine 10 mg tablet (Norvasc) 10 mg PO DAILY #90 tabs 05/18/23 gabapentin 300 mg capsule 300 mg PO BEDTIME PRN nerve pain 05/18/23 #90 caps Magic Mouthwash 5 ml PO TID #240 mL 06/11/23 Diphen/Lido/Antacid 1:1:1 240 mL suspension ferrous sulfate 325 mg (65 mg 325 mg PO DAILY #60 tabs 06/11/23 iron) tablet megestrol 400 mg/10 mL (10 mL) 400 mg (10 mL) PO DAILY #300 mL 06/11/23 oral suspension potassium chloride 10 mEq 10 meq PO DAILY #30 tabs 06/21/23 tablet,extended release Allergies Allergy/AdvReac Type Severity Reaction Status Date / Time metformin Allergy Intermediate Vomiting Verified 07/04/23 04:33 Review of Systems 2 Review of Systems: Yes all other systems are reviewed and are negative PMFSH Past Medical History Medical History Peripheral neuropathy History of chemotherapy Hypokalemia Port-A-Cath in place Arthritis Elevated cholesterol Invasive ductal carcinoma of right breast Type 2 diabetes mellitus Hypertension Beta thalassemia Surgical History History of modified radical mastectomy of right breast (04/04/23) Hx of bilateral cataract extraction H/O colonoscopy History of delivery (1982) Family History Family History Sister Breast cancer Social History Social History Household Members: Children Housing: House Are you a primary acute care assistant to a significant other at home: No 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) Alcohol intake: never Comment: slight unsteadiness Patient Tobacco Use Status: Never used Tobacco Advance Directives: Yes Advance Directives on File: Yes Advance Directives Date on File: 09/01/22 Do you have a plan to hurt others: No Plan service: No Current occupational status: retired Physical Exam ED Vital Signs: Vital Signs - 24 hr 07/04/23 04:29 07/04/23 06:20 07/04/23 09:55 Temperature 98.8 F 98.4 F 98.5 F Pulse Rate 102 H 87 89 Respiratory Rate 18 16 16 Blood Pressure 140/72 H 146/73 H 140/67 H Pulse Oximetry 99 97 96 Oxygen Delivery Method Room Air Room Air Room Air BMI result Body Mass Index 23.4 Appearance: Alert. Oriented X3. No acute distress. Head: normocephalic, atraumatic. Eyes: Pupils equal, round and reactive to light. ENT: Pharynx normal. No tonsillar swelling or exudate. Neck: Normal inspection. Neck supple. CVS: Normal heart rate and rhythm. Pulses normal. Respiratory: No respiratory distress. Breath sounds normal. Abdomen: Soft and nontender. +BS x4 Skin: Skin warm and dry. Normal skin color. Normal skin turgor. No rashes. Extremities: No lower extremity edema. No joint swelling. Neuro/psych: Oriented X 3. No motor deficit. No sensory deficit. CN II-XII intact. Normal speech and cognition. Course Reevaluation(s) Reevaluation #1: Physician observation started at this time. Monitoring glucose for possible need of D5 infusion or inpatient admission. Patient is in agreement. She is awake and alert with a glucose of 57 eating and drinking well. Time: 10:17 Reevaluation #2: Patient's glucose 64. She is eating a tuna sandwich and feels well. No dizziness. Her prior sugars before this were in the 70s. She has been eating well. At this time patient does not meet medical necessity for admission to the hospital. She is stable for discharge home with close monitoring of her blood sugars. She will go home with her family member. She will check her point of care every 2-3 hours today or when symptomatic with dizziness. She is being discharged home. Patient and family aware INR in agreement. They were given strict return precautions. Physician observation ended at this time. Total time and physician observation 2.5 hours Time: 12:48 Medications Administered Discontinued Medications Generic Name Dose Route Start Last Admin Trade Name Freq PRN Reason Stop Dose Admin Docusate Sodium 100 mg 07/04/23 09:24 07/04/23 09:53 Docusate Sodium 100 Mg Capsule PO 07/04/23 09:25 100 mg ONCE ONE Administration Heparin Sodium (Porcine) 50 units 07/04/23 12:53 07/04/23 12:59 Heparin Sodium,Porcine Flush 50 Units/5 Ml Syringe IVFLUSH 07/04/23 12:54 50 units ONCE ONE Administration Polyethylene Glycol 17 gm 07/04/23 09:24 07/04/23 09:53 Polyethylene Glycol 3350 17 Gm Powd.Pack PO 07/04/23 09:25 17 gm ONCE ONE Administration Medical Decision Making Medical Decision Making [facility] Narrative: 82-year-old female with history of breast cancer on immunotherapy, diabetes, hypertension who presents to the ER for evaluation of recurrent symptomatic hypoglycemia. Seen here for the same a couple of weeks ago. She had stopped her glipizide and has since restarted it with return of her symptoms. Initial glucose today in triage was 111. Repeat glucose was 43 then 57 after eating some crackers and juice. She was given additional p.o. and her glucose went to 67, then 73, then 72, then 64 and finally 104. She was re-evaluated several times at the bedside during these instances to see how she was feeling and if she was symptomatic. She continues to eat and drink well. She has not having any dizziness with her sugar at 64. She would like to go home. She lives with her family. She was instructed to check her glucose every 2 hours at home or earlier if symptomatic with dizziness or signs and symptoms of hypoglycemia. She was instructed to stop her glipizide altogether. She was encouraged follow-up with her primary care doctor for possible re- initiation of another diabetic agent or perhaps a much lower dose of glipizide. She is currently on 10 mg b.i.d., although was only been taking 10 mg in the morning and skipping the night dose. Comfortable discharge home with close monitoring. Differential Diagnosis Differential Diagnoses: The differential diagnosis associated with the presentation includes recurrent hypoglycemia due to glipizide, poor nutritional status, insulinoma, dehydration Admission/Observation Consideration of admission/observation: Escalation of care including admission/observation considered Lab Data [facility] Lab Attestation statement: I reviewed the patient's lab results. Worsening microcytic anemia, mild transaminitis, hemoglobin A1c 6.1% 07/04/23 07:52 07/04/23 07:52 Labs: Lab Results 07/04/23 07/04/23 07/04/23 Range/Units 04:24 04:39 07:15 WBC (4.8-10.8) X10*3/uL RBC (4.20-5.50) X10*6/uL Hgb (12.0-16.0) g/dl Hct (37.0-47.0) % MCV (80.0-98.0) fL MCH (27.0-33.0) pg MCHC (31.0-35.0) g/dl RDW (11.0-16.0) % Plt Count (160-400) X10*3/uL MPV (9.4-12.3) fL Immature Gran % (Auto) (0.0-0.4) % Neut % (Auto) (45-73) % Lymph % (Auto) (20-40) % [place] % (Auto) (2-11) % Eos % (Auto) (0-4) % Baso % (Auto) (0-2) % Lymph # (Auto) (1.2-4.9) X10*3/uL [place] # (Auto) (0.1-1.2) X10*3/uL Eos # (Auto) (0.0-0.4) X10*3/uL Baso # (Auto) (0.0-0.2) X10*3/uL Abs Immat Gran (auto) (0.00-0.03) X10*3/uL Absolute Neuts (auto) (2.0-8.3) x10*3/uL Absolute Nucleated RBC (0.0-0.012) X10*3/uL Nucleated RBC % (auto) (0.0-0.2) /100WBC Sodium (135-145) mmol/L Potassium (3.3-5.1) mmol/L Chloride (96-108) mmol/L Carbon Dioxide (22-29) mmol/L Anion Gap (12-20) BUN (9-16) mg/dL Creatinine (0.5-1.4) mg/dL Estim Creat Clear Calc Estimated GFR POC Glucose 111 43 L* (60-115) mg/dL Random Glucose (60-115) mg/dL Estimat Average Glucose mg/dL Hemoglobin A1c % (<6.0) % Calcium (8.4-10.2) mg/dL Total Bilirubin (0.0-1.0) mg/dL AST (5-31) U/L ALT (0-31) U/L Alkaline Phosphatase (39-117) U/L Total Protein (6.5-8.0) g/dL Albumin (3.5-5.0) g/dL Influenza Type A (PCR) NEGATIVE (Negative) Influenza Type B (PCR) NEGATIVE (Negative) RSV RNA Qual (PCR) NEGATIVE (Negative) SARS-CoV-2 RNA (RT-PCR) NEGATIVE (Negative) 07/04/23 07/04/23 07/04/23 Range/Units 07:51 07:52 08:40 WBC 9.5 (4.8-10.8) X10*3/uL RBC 3.67 L (4.20-5.50) X10*6/uL Hgb 8.8 L (12.0-16.0) g/dl Hct 26.8 L (37.0-47.0) % MCV 73.0 L (80.0-98.0) fL MCH 24.0 L (27.0-33.0) pg MCHC 32.8 (31.0-35.0) g/dl RDW 17.1 H (11.0-16.0) % Plt Count 232 (160-400) X10*3/uL MPV 9.4 (9.4-12.3) fL Immature Gran % (Auto) 0.4 (0.0-0.4) % Neut % (Auto) 78.9 H (45-73) % Lymph % (Auto) 11.6 L (20-40) % [place] % (Auto) 8.3 (2-11) % Eos % (Auto) 0.6 (0-4) % Baso % (Auto) 0.2 (0-2) % Lymph # (Auto) 1.1 L (1.2-4.9) X10*3/uL [place] # (Auto) 0.8 (0.1-1.2) X10*3/uL Eos # (Auto) 0.1 (0.0-0.4) X10*3/uL Baso # (Auto) 0.0 (0.0-0.2) X10*3/uL Abs Immat Gran (auto) 0.04 H (0.00-0.03) X10*3/uL Absolute Neuts (auto) 7.5 (2.0-8.3) x10*3/uL Absolute Nucleated RBC 0.000 (0.0-0.012) X10*3/uL Nucleated RBC % (auto) 0.0 (0.0-0.2) /100WBC Sodium 139 (135-145) mmol/L Potassium 3.6 (3.3-5.1) mmol/L Chloride 108 (96-108) mmol/L Carbon Dioxide 22 (22-29) mmol/L Anion Gap 13 (12-20) BUN 10 (9-16) mg/dL Creatinine 0.55 (0.5-1.4) mg/dL Estim Creat Clear Calc 80.9 Estimated GFR > 60 POC Glucose 57 L* 73 (60-115) mg/dL Random Glucose 67 (60-115) mg/dL Estimat Average Glucose 128 mg/dL Hemoglobin A1c % 6.1 H (<6.0) % Calcium 9.5 (8.4-10.2) mg/dL Total Bilirubin 0.4 (0.0-1.0) mg/dL AST 69 H (5-31) U/L ALT 68 H (0-31) U/L Alkaline Phosphatase 107 (39-117) U/L Total Protein 7.2 (6.5-8.0) g/dL Albumin 3.2 L (3.5-5.0) g/dL Influenza Type A (PCR) (Negative) Influenza Type B (PCR) (Negative) RSV RNA Qual (PCR) (Negative) SARS-CoV-2 RNA (RT-PCR) (Negative) 07/04/23 07/04/23 07/04/23 Range/Units 11:18 12:00 12:53 WBC (4.8-10.8) X10*3/uL RBC (4.20-5.50) X10*6/uL Hgb (12.0-16.0) g/dl Hct (37.0-47.0) % MCV (80.0-98.0) fL MCH (27.0-33.0) pg MCHC (31.0-35.0) g/dl RDW (11.0-16.0) % Plt Count (160-400) X10*3/uL MPV (9.4-12.3) fL Immature Gran % (Auto) (0.0-0.4) % Neut % (Auto) (45-73) % Lymph % (Auto) (20-40) % [place] % (Auto) (2-11) % Eos % (Auto) (0-4) % Baso % (Auto) (0-2) % Lymph # (Auto) (1.2-4.9) X10*3/uL [place] # (Auto) (0.1-1.2) X10*3/uL Eos # (Auto) (0.0-0.4) X10*3/uL Baso # (Auto) (0.0-0.2) X10*3/uL Abs Immat Gran (auto) (0.00-0.03) X10*3/uL Absolute Neuts (auto) (2.0-8.3) x10*3/uL Absolute Nucleated RBC (0.0-0.012) X10*3/uL Nucleated RBC % (auto) (0.0-0.2) /100WBC Sodium (135-145) mmol/L Potassium (3.3-5.1) mmol/L Chloride (96-108) mmol/L Carbon Dioxide (22-29) mmol/L Anion Gap (12-20) BUN (9-16) mg/dL Creatinine (0.5-1.4) mg/dL Estim Creat Clear Calc Estimated GFR POC Glucose 72 64 104 (60-115) mg/dL Random Glucose (60-115) mg/dL Estimat Average Glucose mg/dL Hemoglobin A1c % (<6.0) % Calcium (8.4-10.2) mg/dL Total Bilirubin (0.0-1.0) mg/dL AST (5-31) U/L ALT (0-31) U/L Alkaline Phosphatase (39-117) U/L Total Protein (6.5-8.0) g/dL Albumin (3.5-5.0) g/dL Influenza Type A (PCR) (Negative) Influenza Type B (PCR) (Negative) RSV RNA Qual (PCR) (Negative) SARS-CoV-2 RNA (RT-PCR) (Negative) Independent Interpretation I performed an independent interpretation of an: EKG Interpretation: Normal sinus rhythm, ventricular rate 80 beats per minute, T-wave inversions in leads 3 and AVF which are unchanged from prior. No ST segment elevations or depressions. Independent Historian Clinical information obtained from an independent historian. History obtained from or confirmed by: Other (Adult daughter at the bedside) External Record Review External record reviewed: Office record, Outpatient record, Prior outpatient labs and Prior outpatient radiology Prescription Management I considered prescription management with: Other (Dextrose) Chronic Conditions Patient?s care impacted by: Diabetes, Hypertension and Other (Breast cancer) Critical Care Time Critical Care Time Critical Care Time: Yes Total Critical Care Time: 68 Attestation: I have personally provided critical care time exclusive of time spent on separately billable procedures. Time includes review of lab data, chart review, multiple bedside reassessments and monitoring for potential decompensation. Intervention performed as documented. Discharge Plan Discharge Clinical Impression: Hypoglycemia Patient Disposition: Home, Self-Care Instructions: Hypoglycemia in a Person with Diabetes (ED) Additional Instructions: STOP YOUR GLIPZIDE continue to check your sugars every 2-3 hours today or when you feel dizzy/unwell If you have ongoing low blood sugars at home that do not respond or improve with eating and drinking, call 911 or come back to the ER for further evaluation. Follow up with your doctor for further management of your diabetes (your hemoglobin a1c was 6.1%) If you develop new or worsening symptoms call 911 or come back to the ER for further evaluation. Prescriptions: No Action potassium chloride 10 mEq Tablet Extended Release 10 meq PO DAILY Qty: 30 0RF sennosides-docusate sodium [Senna with Docusate Sodium] 8.6-50 mg tablet 1 tab-cap PO BEDTIME PRN (Reason: Constipation) albuterol sulfate 90 mcg/actuation HFA aerosol inhaler 2 puff inhalation Q6H PRN (Reason: wheezing) oxycodone 5 mg tablet 5 mg PO Q4H PRN (Reason: pain (scale score 7-10)) Qty: 24 0RF Rx Instructions: Partial Fill upon patient request. ondansetron 8 mg Tablet,Disintegrating 8 mg PO Q8H PRN (Reason: Nausea) Qty: 30 3RF fluticasone propionate 50 mcg/actuation spray,suspension 1 spray intranasal BID PRN (Reason: Nasal Congestion) gabapentin 300 mg capsule 300 mg PO BEDTIME PRN (Reason: nerve pain) Qty: 90 3RF amlodipine [Norvasc] 10 mg tablet 10 mg PO DAILY Qty: 90 3RF ferrous sulfate 325 mg (65 mg iron) Tablet 325 mg PO DAILY Qty: 60 2RF megestrol 400 mg/10 mL (10 mL) Suspension 400 mg PO DAILY Qty: 300 0RF Magic Mouthwash Diphen/Lido/Antacid 1:1:1 240 mL Suspension 5 ml PO TID Qty: 240 0RF Rx Instructions: Lidocaine Viscous 2 % 80mL; diphenhydramine 12.5 mg/5 mL 80mL; aluminum-mag hydrox-simeth [id number]/5mL 80mL glipizide 10 mg tablet 10 mg PO BID atorvastatin 20 mg tablet 20 mg PO BEDTIME metoprolol succinate 50 mg tablet extended release 24 hr 75 mg PO DAILY losartan 100 mg tablet 100 mg PO 3XW Rx Instructions: takes ~3X week at [id number] specific days Referrals: Roseline Ortega MD [Primary Care Provider] - Print Language: Japanese
[2023-07-04 07:19] LABS: Glucose, Whole Blood 43 mg/dL (60-115)
[2023-07-04 07:56] LABS: MANUAL DIFF FLAG NO
[2023-07-04 07:56] LABS: Glucose, Whole Blood 57 mg/dL (60-115)
[2023-07-04 07:58] LABS: Basophils Percent Auto 0.2 % (0-2); Eosinophils Absolute Auto 0.1 X10*3/uL (0.0-0.4); Eosinophils Percent Auto 0.6 % (0-4); Hematocrit 26.8 % (37.0-47.0); Hemoglobin 8.8 g/dl (12.0-16.0); Imm Gran Abs Auto 0.04 X10*3/uL (0.00-0.03); Imm Gran Pct Auto 0.4 % (0.0-0.4); Lymphocytes Absolute Auto 1.1 X10*3/uL (1.2-4.9); Lymphocytes Percent Auto 11.6 % (20-40); Mean Corpuscular HGB Conc 32.8 g/dl (31.0-35.0); Mean Platelet Volume 9.4 fL (9.4-12.3); Monocytes Absolute Auto 0.8 X10*3/uL (0.1-1.2); Monocytes Percent Auto 8.3 % (2-11); Neutrophils Absolute Auto 7.5 x10*3/uL (2.0-8.3); Neutrophils Percent Auto 78.9 % (45-73); Platelet Count 232 X10*3/uL (160-400); Red Blood Count 3.67 X10*6/uL (4.20-5.50); Red Cell Distribution Width 17.1 % (11.0-16.0); White Blood Count 9.5 X10*3/uL (4.8-10.8)
--- NOTE | 2023-07-04 07:59 | PC.NURSE ---
power port accessed via sterile technique, labs obtained, RN notified of low POC - pt given orange juice and ani crackers, provider aware.
[2023-07-04 08:06] LABS: Estimated Average Glucose 128 mg/dL; Hemoglobin A1c % 6.1 % (<6.0)
[2023-07-04 08:12] LABS: Alanine Aminotransferase 68 U/L (0-31); Albumin Level 3.2 g/dL (3.5-5.0); Alkaline Phosphatase 107 U/L (39-117); Anion Gap 13 (12-20); Aspartate Amino Transferase 69 U/L (5-31); Bilirubin Total 0.4 mg/dL (0.0-1.0); Blood Urea Nitrogen 10 mg/dL (9-16); Calcium 9.5 mg/dL (8.4-10.2); Carbon Dioxide 22 mmol/L (22-29); Chloride 108 mmol/L (96-108); Creatinine Clr Calc Pharmacy 80.9; Estimated Glomerular Filt Rate > 60; Glucose Random 67 mg/dL (60-115); Potassium 3.6 mmol/L (3.3-5.1); Sodium 139 mmol/L (135-145); Total Protein 7.2 g/dL (6.5-8.0)
--- NOTE | 2023-07-04 08:33 | ECG_ITS ---
Test Reason : dizziness Blood Pressure : / mmHG Vent. Rate : 080 BPM Atrial Rate : 080 BPM P-R Int : 146 ms QRS Dur : 070 ms QT Int : 374 ms P-R-T Axes : 028 -09 -06 degrees QTc Int : 431 ms Artifact in tracing Normal sinus rhythm Minimal voltage criteria for LVH, may be normal variant ( R in aVL ) Nonspecific T wave abnormality Abnormal ECG When compared with ECG of 18-JUN-2023 13:25, No significant change was found Referred By: Marleni Ascencio Electronically Signed By:ALPHONSE GRIFFIN
[2023-07-04 08:44] LABS: Glucose, Whole Blood 73 mg/dL (60-115)
[2023-07-04 09:15] LABS: Glucose, Whole Blood 111 mg/dL (60-115)
[2023-07-04] MEDS: Docusate Sodium 100 MG CAPSULE PO (09:53)
[2023-07-04] MEDS: polyethylene glycoL 3350 17 GM POWD.PACK PO (09:53)
[2023-07-04 09:55] VITALS: BP 140/67; PULSE 89; RESP 16; TEMP 36.9; O2SAT 96
[2023-07-04 12:58] LABS: Glucose, Whole Blood 104 mg/dL (60-115)
[2023-07-04] MEDS: Heparin Sodium,Porcine Flush 50 UNITS/5 ML SYRINGE IVFLUSH (12:59)
--- NOTE | 2023-07-04 13:00 | PC.NURSE ---
port flushed with hep lock and deaccessed
[2023-07-04 13:12] VITALS: BP 129/65; PULSE 80; RESP 18; TEMP 36.8; O2SAT 98
== END 2023-07-04 13:13 | disposition home or self-care (01) ==
PROVIDERS: Physician Assistant; Emergency Provider Emergency Medicine; PCP Internal Medicine
DX: E11.649 Type 2 diabetes mellitus with hypoglycemia without coma (principal); I10 Essential (primary) hypertension; E78.00 Pure hypercholesterolemia, unspecified; C50.911 Malignant neoplasm of unspecified site of right female breast; Z79.02 Long term (current) use of antithrombotics/antiplatelets; Z79.85 Long-term (current) use of injectable non-insulin antidiabetic drugs; Z79.899 Other long term (current) drug therapy; Z03.818 Encounter for observation for suspected exposure to other biological agents ruled out
CPT/HCPCS: 0241U; 36415; 80053; 82947; 83036; 85025; 93005; 99283; 99284; J1642

== ENCOUNTER → 2023-07-04 08:33 | Outpatient (BNV) | payer OTHER, SELFPAY | PROVIDERS: Emergency Provider Emergency Medicine; PCP Internal Medicine; Visit Provider Internal Medicine | DX: R94.31 Abnormal electrocardiogram [ECG] [EKG] (principal) | CPT/HCPCS: 93010 ==

== ENCOUNTER 2023-08-17 10:21 | Outpatient (AMB) | payer OTHER, SELFPAY ==
--- NOTE | 2023-08-17 10:45 | MHC.OFFVIS ---
Vital Signs 08/17/23 10:49 Height 5 ft 8 in Weight 150 lb BMI 22.8 BP 143/64 H Blood Pressure Location Lt brachial Position Sitting Pulse 89 Intake Visit Reasons: 3 m follow up visit, breast exa/post mastectomy Intake Note: Patient is seen in office for 3 months follow up visit, breast exam. Pt c/o:no concerns regarding the breast, would like to know if she can put lotion in the area due to dry skin MRI: 01/12/23 Technical Illustrator Required: No Accompanied by: Self / Same As Patient Allergies metformin Allergy (Intermediate, Verified 08/17/23 10:55) Vomiting HPI Comments Details: 82-year-old female patient with a past history of hypertension, type 2 diabetes, beta thalassemia with a two-month history of a cystic mass of the right breast at the upper inner quadrant. The mass initially started as a small parsons sized lesion which gradually increased in size with associated discomfort. She denies a previous history of breast problems or breast surgery. She does have a family history of a sister with breast cancer who subsequently succumbed from the disease. Her sister lived in [facility] [place] and she is uncertain of what treatments she received. She was previously evaluated by the breast center at [facility] and arrangements made for an ultrasound-guided core biopsy. A previous CT of the chest did revealed a suspicious appearing cystic mass corresponding to the palpable lesion. Subsequent ultrasound guided core biopsy revealed invasive ductal carcinoma, grade 3, ER/AZ negative, HER2 Ollie negative. The patient reports the lesion filled up with fluid within 24 hours of the previous aspiration. She is . She was evaluated by Dr. Christine and underwent neoadjuvant treatment for this locally advanced breast cancer. Right modified radical mastectomy performed on 04/04/2023 revealed the following pathology results: Benign breast tissue with changes consistent with chemotherapy treatment; negative for residual carcinoma. Unremarkable appearing skin and nipple. Small intraductal papilloma. Eleven lymph nodes negative for metastatic carcinoma. YpT0 ypN0 AJCC stage 8th addition (previously diagnosed grade 3 invasive ductal carcinoma, triple negative, [facility] diagnosis). Since drain removal she reports no further fluid below the flaps. In general she feels well. She was evaluated by radiation therapy and declined radiation therapy. She continues to be monitored by Dr. Christine off immunotherapy. [facility] Medical History Peripheral neuropathy History of chemotherapy Hypokalemia Port-A-Cath in place Arthritis Elevated cholesterol Invasive ductal carcinoma of right breast Type 2 diabetes mellitus Hypertension Beta thalassemia Surgical History History of modified radical mastectomy of right breast (04/04/23) Hx of bilateral cataract extraction H/O colonoscopy History of delivery (1982) Family History Sister Breast cancer Social History Household Members: Children Housing: House Are you a primary insurance healthcare consultant to a significant other at home: No 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) Alcohol intake: never Comment: slight unsteadiness Patient Tobacco Use Status: Never used Tobacco Advance Directives Date on File: 09/01/22 service: No Current occupational status: retired Female Reproductive History Menstrual Age of Menarche: 17 Review of Systems Const All systems reviewed & are unremarkable except as noted in HPI and below Physical Exam Vital Signs: Last Vital Signs Pulse 89 08/17/23 10:49 BP 143/64 H 08/17/23 10:49 BMI result Body Mass Index 22.8 Const General: comfortable Nutritional Appearance: well nourished Orientation/consciousness: patient oriented x3 Limitations: no limitations Chest Other: Left breast with no palpable mass, skin change, nipple discharge, or enlarged lymph nodes. Right chest: Well-healed mastectomy incision with no palpable mass, fluid collection or enlarged lymph nodes. Chest/axillae images: 1. Mastectomy incision right chest GI Inspection: Yes normal to inspection Skin Other: Warm, dry, no rash Neuro General: patient oriented x3 Extrem General: Yes no clubbing, cyanosis or edema Assessment & Plan Assessment & Plan (1) Triple negative malignant neoplasm of breast: Code(s): C50.919 - Malignant neoplasm of unspecified site of unspecified female breast Category: Surgical (2) Invasive ductal carcinoma of right breast: Comment: most recent chemotherapy 02/2023 Code(s): C50.911 - Malignant neoplasm of unspecified site of right female breast Category: Medical Plan Patient continues to improve following right mastectomy. Right chest wound is clean and intact with no evidence of recurrence. Right breast is normal as well. Patient will continue follow-up Medical Oncology and return in our office in approximately 6 months for follow-up examination. She will need a left breast mammogram for follow-up. Coding Level of Care Code Est Pt Level 3 (83507) Diagnoses Triple negative malignant neoplasm of breast C50.919 Invasive ductal carcinoma of right breast C50.911
[2023-08-17 10:49] VITALS: BP 143/64; PULSE 89; BMI 22.8
== END 2023-08-17 11:03 | disposition home or self-care (01) ==
PROVIDERS: PCP Internal Medicine; Visit Provider Surgery
DX: C50.911 Malignant neoplasm of unspecified site of right female breast (principal)
CPT/HCPCS: 99213

== ENCOUNTER → 2023-08-17 10:21 | Outpatient (BNVA) | payer OTHER, SELFPAY | PROVIDERS: PCP Internal Medicine; Visit Provider Surgery | DX: Z48.3 Aftercare following surgery for neoplasm (principal); C50.911 Malignant neoplasm of unspecified site of right female breast | CPT/HCPCS: 99212 ==

== ENCOUNTER 2023-08-24 17:19 | Inpatient (IN) | payer OTHER, SELFPAY ==
--- NOTE | ~2023-08-24 | CT_ITS ---
EXAMINATION: CT SOFT TISSUE NECK WITH CONTRAST CLINICAL INFORMATION: Left-sided neck pain. COMPARISON: CT head and cervical spine 06/18/2023. TECHNIQUE: Following the intravenous administration of 60 mL of Omnipaque 350 intravenous contrast, helical imaging was performed in the axial plane with generation of coronal and sagittal reformatted images. This CT examination was performed using dose optimization techniques as appropriate, variously including the following: *Automated exposure control *Adjustment of mA and/or kV according to patient size (this includes techniques or standardized protocols for targeted exams where dose is matched to indication/reason for exam; i.e. extremities or head) *Use of iterative reconstruction technique DLP: 920 mGy-cm FINDINGS: There is no discrete hematoma or drainable fluid collection at the site of the Port-A-Cath implantation in the left supraclavicular location. There are no pathologically enlarged cervical lymph nodes. No mediastinal or axillary adenopathy is visualized within the [id number] of this examination. Pharyngeal mucosal spaces are symmetric. Parapharyngeal and retromaxillary fat is preserved. [employer] spaces are symmetric. The parotid and submandibular glands are normal. The tongue base and epiglottis are normal. Preepiglottic fat is preserved. Glottic and subglottic airways are patent. There is a prominent pyramidal lobe of the thyroid gland. Remainder the visualized visceral soft tissues are normal. Lung apices are clear. Aortic arch apex is normal. Partially calcified atheromatous plaque involves both carotid bifurcations. Cervical carotid and vertebral arteries are otherwise grossly patent. Internal jugular veins fill symmetrically. There is no acute osseous finding. Specifically no worrisome lytic or blastic osseous lesion. There is multilevel degenerative spondylosis of the cervical spine with at least moderate canal stenosis at C4-C5 and C5-C6. The skull base is grossly intact. No mastoid or middle ear effusion. Limited visualization of intracranial anatomy reveals no abnormal finding. CT/CT soft tissue neck w IV con IMPRESSION: There is multilevel degenerative spondylosis of the cervical spine with at least moderate canal stenosis at C4-C5 and C5-C6. If there are clinical symptoms of compressive myelopathy then a dedicated cervical spine MRI can be obtained for better anatomic characterization of the cord and canal. There is no discrete anatomic finding to provide a definitive explanation for this patient's left-sided neck pain in that there is no identifiable hematoma or discrete drainable fluid collection at the site of the Port-A-Cath implantation.
--- NOTE | ~2023-08-24 | XR_ITS ---
EXAMINATION: XR CHEST CLINICAL INFORMATION: Fever. COMPARISON: Chest radiograph 12/08/2022. TECHNIQUE: Frontal view of the chest was obtained. FINDINGS: Stable prominence of the cardiomediastinal silhouette. Left-sided chest port with the tip terminating over the expected location of the proximal right atrium. Stable central vascular congestion. Slightly increased diffuse interstitial markings. No dense consolidation. No pleural effusion or pneumothorax. No acute osseous findings. XR/XR chest 1V IMPRESSION: Slightly increased interstitial markings that could be seen with pulmonary edema or small airways disease in the appropriate clinical context.
[2023-08-24 17:34] VITALS: BP 135/69; PULSE 102; RESP 18; TEMP 37.3; O2SAT 100; BMI 22.1
--- NOTE | 2023-08-24 17:34 | ED_ITS ---
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 Ceron, diabetes, hypertension, beta thalassemia, who presents to the ER with complaints of intermittent fevers x 5 days. Patient states that she has had a sore throat, productive cough with yellow/green sputum. She has been taking Tylenol for her fevers with some relief. She denies any sick contacts. She states that she was at a [employer]an 6 days ago however does not know of anyone that is also sick. She denies any headaches, dizziness, congestion, chest pain, shortness of breath, abdominal pain, nausea, vomiting or diarrhea. She does endorse urinary frequency, denies hematuria, urinary urgency. She states that she has had a slightly decreased appetite. Family member reports that her glipizide has been adjusted, reports decreased dosage as it was too high. No other complaints or concerns at this time. MD complaint: Fevers Onset (ago): day(s) Relieving factors: none Exacerbating factors: none Associated symptoms: cough, fever/chills, loss of appetite and malaise Related Data Home Medications ?Medication ?Instructions ?Recorded ?Confirmed losartan 100 mg tablet 100 mg PO 3XW 08/31/22 08/14/23 metoprolol succinate 50 mg 75 mg PO DAILY 08/31/22 08/14/23 tablet,extended release 24 hr fluticasone propionate 50 1 spray intranasal BID PRN Nasal 12/15/22 08/14/23 mcg/actuation nasal Congestion spray,suspension albuterol sulfate 90 mcg/actuation 2 puff inhalation Q6H PRN wheezing 03/23/23 08/14/23 aerosol inhaler sennosides 8.6 mg-docusate sodium 1 tab-cap PO BEDTIME PRN 03/23/23 08/14/23 50 mg tablet (Senna with Docusate Constipation Sodium) glipizide 2.5 mg tablet, extended 2.5 mg PO DAILY 08/17/23 release 24 hr Previous Rx's ?Medication ?Instructions ?Recorded amlodipine 10 mg tablet (Norvasc) 10 mg PO DAILY #90 tabs 05/18/23 gabapentin 300 mg capsule 300 mg PO BEDTIME PRN nerve pain 05/18/23 #90 caps Magic Mouthwash 5 ml PO TID #240 mL 06/11/23 Diphen/Lido/Antacid 1:1:1 240 mL suspension megestrol 400 mg/10 mL (10 mL) 400 mg (10 mL) PO DAILY #300 mL 06/11/23 oral suspension guaifenesin 600 mg tablet, 600 mg PO Q12H #30 tabs 07/20/23 extended release 12 hr (Mucinex) azithromycin 250 mg tablet 250 mg PO DAILY #6 tabs 07/27/23 potassium chloride 20 mEq 20 meq PO DAILY #30 tabs 07/27/23 tablet,extended release (K-Tab) potassium chloride 10 mEq 10 meq PO DAILY #30 tabs 08/14/23 tablet,extended release cefuroxime axetil 250 mg tablet 250 mg PO BID 7 days #13 tabs 08/25/23 Allergies Allergy/AdvReac Type Severity Reaction Status Date / Time metformin Allergy Intermediate Vomiting Verified 08/24/23 17:36 Review of Systems 2 Review of Systems: Yes all other systems are reviewed and are negative Constitutional: Constitutional: Reports as per [facility] Past Medical History Medical History Peripheral neuropathy History of chemotherapy Hypokalemia Port-A-Cath in place Arthritis Elevated cholesterol Invasive ductal carcinoma of right breast Type 2 diabetes mellitus Hypertension Beta thalassemia Surgical History History of modified radical mastectomy of right breast (04/04/23) Hx of bilateral cataract extraction H/O colonoscopy History of delivery (1982) Family History Family History Sister Breast cancer Social History Social History Household Members: Children Housing: House Are you a primary child care associate teacher to a significant other at home: No Do you presently have 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 or other home services: Yes ([employer]) Alcohol intake: never Comment: slight unsteadiness Patient Tobacco Use Status: Never used Tobacco Advance Directives: Yes Advance Directives on File: Yes Advance Directives Date on File: 09/01/22 Do you have a plan to hurt others: No Plan service: No Current occupational status: retired Physical Exam ED Vital Signs: Vital Signs - 24 hr 08/24/23 17:34 08/24/23 17:56 08/24/23 19:21 Temperature 99.2 F 98.5 F 98.2 F Pulse Rate 102 H 81 84 Respiratory Rate 18 20 20 Blood Pressure 135/69 158/61 H 138/60 Pulse Oximetry 100 99 98 Oxygen Delivery Method Room Air Room Air Room Air 08/24/23 20:45 08/25/23 00:00 08/25/23 02:00 Temperature 98.4 F 99.2 F 99.5 F Pulse Rate 79 88 91 Respiratory Rate 18 16 16 Blood Pressure 118/58 L 129/60 117/46 L Pulse Oximetry 99 95 99 Oxygen Delivery Method Room Air Room Air Room Air BMI result Body Mass Index 22.1 Const General: cooperative, comfortable and no acute distress Orientation/consciousness: patient oriented x3 Limitations: no limitations HENMT Head: Yes normal to inspection, Yes normocephalic and Yes atraumatic Ears: hearing grossly normal bilaterally General nose exam: Normal external nose present Face and sinus: Yes normal facial exam Mouth: Normal oral and palatal mucosa present, oropharynx normal and moist mucous membranes Throat: Yes posterior oropharynx normal Eyes General: appearance normal, both eyes and all related structures Eyelids: Yes eyelids normal Conjunctivae: conjunctivae normal Sclerae: sclerae normal Pupils: Equal, round and reactive pupils present EOM: EOMs intact bilaterally Neck Neck: Yes normal visual inspection, Yes full ROM and Yes no lymphadenopathy Lymphatic: no lymphadenopathy noted Chest Chest palpation & inspection: normal inspection of the chest Resp Effort & Inspection: normal respiratory effort and able to speak in complete sentences Auscultation: clear to auscultation bilaterally, no crackles, no rales, no rhonchi and no wheezes Cardio Rate: regular rate Rhythm: regular rhythm Heart sounds: S1 normal heart sound present and S2 normal heart sound present GI Other: Abdomen is soft, nontender, nondistended Inspection: Yes normal to inspection Skin General skin exam: no rashes or lesions noted Trauma: no lacerations or abrasions Wounds: no wounds Neuro General: patient oriented x3 and moves all extremities Cranial nerves: Yes Equal, round and reactive pupils present Cognition (Neuro): normal cognition Motor exam (neuro): 5/5 motor strength present throughout Extrem General: Yes normal to inspection Right upper extremity: normal to inspection Left upper extremity: normal to inspection Right lower extremity: normal to inspection Left lower extremity: normal to inspection Course Course Course Narrative: RME performed by Brandee Blanco PA-C. Patient is an 82 year old assigned female at presenting to the emergency department with fevers. Patient states she has been having fevers at home at 102-103. Patient is a breast cancer patient currently following with Dr. Christine. Detailed physical exam and review of systems are deferred to the qc chemist. Labs and swabs ordered. Patient placed back in the waiting room pending room availability and results. Reevaluation(s) Reevaluation #1: Blood work returns, patient has no leukocytosis, she does have evidence of a urinary tract infection. Will treat with cefuroxime. She is still receiving IV potassium. Point of care glucose stable. Will continue to closely monitor. Time: 22:19 Reevaluation #2: Repeat chemistry revealing potassium is 3.0. Workup today revealing source of fevers likely due to urinary tract infection. She is remained stable. Repeat potassium improved to 3.0. Patient's glucose on repeat chemistry shows a random glucose of 61. I discussed with my attending, Dr. Dc. I discussed workup today with patient as well as daughter at bedside. I advised patient to discontinue glipizide as this is causing significant hypoglycemia and this is not the best management for her diabetes as she has had multiple episodes of hypoglycemia. They will follow-up with the primary care physician outpatient. We will continues with cefuroxime to treat for urinary tract infection. Time: 00:57 Reevaluation #3: Upon re-evaluation, blood glucose down to 43. Discussed with my attending, Dr. Dc. Given poor glycemic control, patient needs to be admitted for further management for UTI and hypoglycemia. Discussed case with Dr. Mondragon, who recommends D5 normal saline. Transfer of care initiated to hospital service. Medications Administered Discontinued Medications Generic Name Dose Route Start Last Admin Trade Name Freq PRN Reason Stop Dose Admin Cefuroxime Axetil 250 mg 08/24/23 23:27 08/25/23 00:16 Cefuroxime Axetil 250 Mg Tablet PO 08/24/23 23:28 250 mg ONCE ONE Administration Potassium Chloride/Sodium Chloride 40 meq in 1,000 mls @ 250 mls/hr 08/24/23 19:45 08/24/23 20:05 Kcl 40 Meq In 0.9 % Sodium Chl IV 08/24/23 23:44 250 mls/hr .Q4H KYLEE Administration Magnesium Sulfate/Dextrose 1 gm in 100 mls @ 100 mls/hr 08/24/23 19:41 08/24/23 21:38 Magnesium Sulfate/D5w IV 08/24/23 20:40 Infused ONCE ONE Infusion Lidocaine/Diphenhydr/Alum/Mg/Simeth 10 ml 08/24/23 22:13 08/24/23 22:43 Mag&Al/Sim/Diphenhyd/Lidocaine 10 Ml Oral.Susp PO 08/24/23 22:14 10 ml ONCE ONE Administration Protocol Potassium Chloride 40 meq 08/24/23 19:37 08/24/23 20:05 Potassium Chloride Er 20 Meq Tab.Er.Prt PO 08/24/23 19:38 40 meq ONCE ONE Administration Medical Decision Making Medical Decision Making MDM Narrative: This is a 82-year-old female, with a history of 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 Ceron, diabetes, hypertension, beta thalassemia, who presents to the ER with complaints of intermittent fevers x 5 days. Patient states that she has had an ongoing cough for several months as well as urinary frequency which she states has been more recent. She also reports a sore throat. Daughter reports that her primary care physician is aware of this sore throat and has attempted to prescribe here magic mouthwash as this provides her with relief. On arrival, vital signs within normal limits. She is nontoxic appearing, speaking in full sentences, alert and oriented x4. She is afebrile. Differential diagnoses include urinary tract infection, pneumonia, viral syndrome, strep pharyngitis, neutropenic fever. Plan: Labs, EKG, chest x-ray, viral swabs Differential Diagnosis Differential Diagnoses: The differential diagnosis associated with the presentation includes See above Admission/Observation Consideration of admission/observation: Escalation of care including admission/observation considered Escalation of care including admission/observation considered however given workup today not warranted at this time. Consult Healthcare Provider Management of the patient was discussed with: Hospitalist Dr. Giancarlo Lab Data MDM Lab Attestation statement: I reviewed the patient's lab results. No leukocytosis, normocytic anemia noted with an H&H of 7.9/24.1, similar to baseline. Initial potassium critically low at 2.4, repeat potassium 3.0. No evidence of BREANNA elevated AST ALT - similar to previous. Urine with large leuk esterases, wbc's, consistent with urinary tract infection. 08/24/23 18:43 08/25/23 00:28 Labs: Lab Results 08/24/23 08/24/23 08/24/23 Range/Units 18:24 18:43 19:41 WBC 9.2 (4.8-10.8) X10*3/uL RBC 3.22 L (4.20-5.50) X10*6/uL Hgb 7.9 L (12.0-16.0) g/dl Hct 24.1 L (37.0-47.0) % MCV 74.8 L (80.0-98.0) fL MCH 24.5 L (27.0-33.0) pg MCHC 32.8 (31.0-35.0) g/dl RDW 19.6 H (11.0-16.0) % Plt Count 270 D (160-400) X10*3/uL MPV 9.0 L (9.4-12.3) fL Immature Gran % (Auto) 0.3 (0.0-0.4) % Neut % (Auto) 68.9 (45-73) % Lymph % (Auto) 16.8 L (20-40) % [place] % (Auto) 12.7 H (2-11) % Eos % (Auto) 1.0 (0-4) % Baso % (Auto) 0.3 (0-2) % Lymph # (Auto) 1.6 (1.2-4.9) X10*3/uL [place] # (Auto) 1.2 (0.1-1.2) X10*3/uL Eos # (Auto) 0.1 (0.0-0.4) X10*3/uL Baso # (Auto) 0.0 (0.0-0.2) X10*3/uL Abs Immat Gran (auto) 0.03 (0.00-0.03) X10*3/uL Absolute Neuts (auto) 6.3 (2.0-8.3) x10*3/uL Absolute Nucleated RBC 0.000 (0.0-0.012) X10*3/uL Nucleated RBC % (auto) 0.0 (0.0-0.2) /100WBC Sodium 140 (135-145) mmol/L Potassium 2.4 L* D (3.3-5.1) mmol/L Chloride 107 (96-108) mmol/L Carbon Dioxide 22 (22-29) mmol/L Anion Gap 13 (12-20) BUN 7 L (9-16) mg/dL Creatinine 0.48 L (0.5-1.4) mg/dL Estim Creat Clear Calc 92.7 Estimated GFR > 60 POC Glucose 43 L* (60-115) mg/dL Random Glucose 47 L* (60-115) mg/dL Lactic Acid 0.6 (0.5-2.0) mmol/L Calcium 9.1 (8.4-10.2) mg/dL Magnesium 1.7 (1.6-2.6) mg/dL Total Bilirubin 0.7 (0.0-1.0) mg/dL AST 87 H (5-31) U/L ALT 64 H (0-31) U/L Alkaline Phosphatase 108 (39-117) U/L Total Creatine Kinase 11 L (26-140) U/L Troponin I High Sens (<3.5-17.0) ng/L Total Protein 6.7 (6.5-8.0) g/dL Albumin 3.0 L (3.5-5.0) g/dL Urine Color Urine Appearance Urine pH (5.0-9.0) Ur Specific [place] (1.005-1.025) Urine Protein (Neg-Trace) mg/dL Urine Glucose (UA) (Negative) mg/dL Urine Ketones (Negative) mg/dL Urine Blood (Negative) Urine Nitrite (Negative) Ur Leukocyte Esterase (Negative) Urine RBC (0-2) /HPF Urine WBC (0-5) /HPF Ur Squamous Epith Cells (0-2) /HPF Urine Bacteria (None Seen) Hyaline Casts (0-2) /LPF Influenza Type A (PCR) NEGATIVE (Negative) Influenza Type B (PCR) NEGATIVE (Negative) RSV RNA Qual (PCR) NEGATIVE (Negative) SARS-CoV-2 RNA (RT-PCR) NEGATIVE (Negative) S. pyogenes GrpA KOURTNEY Negative (Negative) 08/24/23 08/24/23 08/24/23 Range/Units 19:57 20:28 20:32 WBC (4.8-10.8) X10*3/uL RBC (4.20-5.50) X10*6/uL Hgb (12.0-16.0) g/dl Hct (37.0-47.0) % MCV (80.0-98.0) fL MCH (27.0-33.0) pg MCHC (31.0-35.0) g/dl RDW (11.0-16.0) % Plt Count (160-400) X10*3/uL MPV (9.4-12.3) fL Immature Gran % (Auto) (0.0-0.4) % Neut % (Auto) (45-73) % Lymph % (Auto) (20-40) % [place] % (Auto) (2-11) % Eos % (Auto) (0-4) % Baso % (Auto) (0-2) % Lymph # (Auto) (1.2-4.9) X10*3/uL [place] # (Auto) (0.1-1.2) X10*3/uL Eos # (Auto) (0.0-0.4) X10*3/uL Baso # (Auto) (0.0-0.2) X10*3/uL Abs Immat Gran (auto) (0.00-0.03) X10*3/uL Absolute Neuts (auto) (2.0-8.3) x10*3/uL Absolute Nucleated RBC (0.0-0.012) X10*3/uL Nucleated RBC % (auto) (0.0-0.2) /100WBC Sodium (135-145) mmol/L Potassium (3.3-5.1) mmol/L Chloride (96-108) mmol/L Carbon Dioxide (22-29) mmol/L Anion Gap (12-20) BUN (9-16) mg/dL Creatinine (0.5-1.4) mg/dL Estim Creat Clear Calc Estimated GFR POC Glucose 63 95 (60-115) mg/dL Random Glucose (60-115) mg/dL Lactic Acid (0.5-2.0) mmol/L Calcium (8.4-10.2) mg/dL Magnesium (1.6-2.6) mg/dL Total Bilirubin (0.0-1.0) mg/dL AST (5-31) U/L ALT (0-31) U/L Alkaline Phosphatase (39-117) U/L Total Creatine Kinase (26-140) U/L Troponin I High Sens (<3.5-17.0) ng/L Total Protein (6.5-8.0) g/dL Albumin (3.5-5.0) g/dL Urine Color Yellow Urine Appearance Clear Urine pH 7.0 (5.0-9.0) Ur Specific [place] 1.010 (1.005-1.025) Urine Protein Trace (Neg-Trace) mg/dL Urine Glucose (UA) Negative (Negative) mg/dL Urine Ketones Trace (Negative) mg/dL Urine Blood Negative (Negative) Urine Nitrite Negative (Negative) Ur Leukocyte Esterase Large (3+) H (Negative) Urine RBC 0-2 (0-2) /HPF Urine WBC 21-50 H (0-5) /HPF Ur Squamous Epith Cells 3-5 (0-2) /HPF Urine Bacteria None Seen (None Seen) Hyaline Casts 0-2 (0-2) /LPF Influenza Type A (PCR) (Negative) Influenza Type B (PCR) (Negative) RSV RNA Qual (PCR) (Negative) SARS-CoV-2 RNA (RT-PCR) (Negative) S. pyogenes GrpA KOURTNEY (Negative) 08/24/23 08/25/23 08/25/23 Range/Units 22:09 00:28 02:00 WBC (4.8-10.8) X10*3/uL RBC (4.20-5.50) X10*6/uL Hgb (12.0-16.0) g/dl Hct (37.0-47.0) % MCV (80.0-98.0) fL MCH (27.0-33.0) pg MCHC (31.0-35.0) g/dl RDW (11.0-16.0) % Plt Count (160-400) X10*3/uL MPV (9.4-12.3) fL Immature Gran % (Auto) (0.0-0.4) % Neut % (Auto) (45-73) % Lymph % (Auto) (20-40) % [place] % (Auto) (2-11) % Eos % (Auto) (0-4) % Baso % (Auto) (0-2) % Lymph # (Auto) (1.2-4.9) X10*3/uL [place] # (Auto) (0.1-1.2) X10*3/uL Eos # (Auto) (0.0-0.4) X10*3/uL Baso # (Auto) (0.0-0.2) X10*3/uL Abs Immat Gran (auto) (0.00-0.03) X10*3/uL Absolute Neuts (auto) (2.0-8.3) x10*3/uL Absolute Nucleated RBC (0.0-0.012) X10*3/uL Nucleated RBC % (auto) (0.0-0.2) /100WBC Sodium 140 (135-145) mmol/L Potassium 3.0 L D (3.3-5.1) mmol/L Chloride 110 H (96-108) mmol/L Carbon Dioxide 20 L (22-29) mmol/L Anion Gap 13 (12-20) BUN 5 L (9-16) mg/dL Creatinine 0.48 L (0.5-1.4) mg/dL Estim Creat Clear Calc 92.7 Estimated GFR > 60 POC Glucose 79 40 L* (60-115) mg/dL Random Glucose 61 (60-115) mg/dL Lactic Acid (0.5-2.0) mmol/L Calcium 8.8 (8.4-10.2) mg/dL Magnesium (1.6-2.6) mg/dL Total Bilirubin 0.7 (0.0-1.0) mg/dL AST 83 H (5-31) U/L ALT 62 H (0-31) U/L Alkaline Phosphatase 103 (39-117) U/L Total Creatine Kinase (26-140) U/L Troponin I High Sens 5.3 (<3.5-17.0) ng/L Total Protein 6.5 (6.5-8.0) g/dL Albumin 2.8 L (3.5-5.0) g/dL Urine Color Urine Appearance Urine pH (5.0-9.0) Ur Specific [place] (1.005-1.025) Urine Protein (Neg-Trace) mg/dL Urine Glucose (UA) (Negative) mg/dL Urine Ketones (Negative) mg/dL Urine Blood (Negative) Urine Nitrite (Negative) Ur Leukocyte Esterase (Negative) Urine RBC (0-2) /HPF Urine WBC (0-5) /HPF Ur Squamous Epith Cells (0-2) /HPF Urine Bacteria (None Seen) Hyaline Casts (0-2) /LPF Influenza Type A (PCR) (Negative) Influenza Type B (PCR) (Negative) RSV RNA Qual (PCR) (Negative) SARS-CoV-2 RNA (RT-PCR) (Negative) S. pyogenes GrpA KOURTNEY (Negative) 08/25/23 Range/Units 02:26 WBC (4.8-10.8) X10*3/uL RBC (4.20-5.50) X10*6/uL Hgb (12.0-16.0) g/dl Hct (37.0-47.0) % MCV (80.0-98.0) fL MCH (27.0-33.0) pg MCHC (31.0-35.0) g/dl RDW (11.0-16.0) % Plt Count (160-400) X10*3/uL MPV (9.4-12.3) fL Immature Gran % (Auto) (0.0-0.4) % Neut % (Auto) (45-73) % Lymph % (Auto) (20-40) % [place] % (Auto) (2-11) % Eos % (Auto) (0-4) % Baso % (Auto) (0-2) % Lymph # (Auto) (1.2-4.9) X10*3/uL [place] # (Auto) (0.1-1.2) X10*3/uL Eos # (Auto) (0.0-0.4) X10*3/uL Baso # (Auto) (0.0-0.2) X10*3/uL Abs Immat Gran (auto) (0.00-0.03) X10*3/uL Absolute Neuts (auto) (2.0-8.3) x10*3/uL Absolute Nucleated RBC (0.0-0.012) X10*3/uL Nucleated RBC % (auto) (0.0-0.2) /100WBC Sodium (135-145) mmol/L Potassium (3.3-5.1) mmol/L Chloride (96-108) mmol/L Carbon Dioxide (22-29) mmol/L Anion Gap (12-20) BUN (9-16) mg/dL Creatinine (0.5-1.4) mg/dL Estim Creat Clear Calc Estimated GFR POC Glucose 46 L* (60-115) mg/dL Random Glucose (60-115) mg/dL Lactic Acid (0.5-2.0) mmol/L Calcium (8.4-10.2) mg/dL Magnesium (1.6-2.6) mg/dL Total Bilirubin (0.0-1.0) mg/dL AST (5-31) U/L ALT (0-31) U/L Alkaline Phosphatase (39-117) U/L Total Creatine Kinase (26-140) U/L Troponin I High Sens (<3.5-17.0) ng/L Total Protein (6.5-8.0) g/dL Albumin (3.5-5.0) g/dL Urine Color Urine Appearance Urine pH (5.0-9.0) Ur Specific [place] (1.005-1.025) Urine Protein (Neg-Trace) mg/dL Urine Glucose (UA) (Negative) mg/dL Urine Ketones (Negative) mg/dL Urine Blood (Negative) Urine Nitrite (Negative) Ur Leukocyte Esterase (Negative) Urine RBC (0-2) /HPF Urine WBC (0-5) /HPF Ur Squamous Epith Cells (0-2) /HPF Urine Bacteria (None Seen) Hyaline Casts (0-2) /LPF Influenza Type A (PCR) (Negative) Influenza Type B (PCR) (Negative) RSV RNA Qual (PCR) (Negative) SARS-CoV-2 RNA (RT-PCR) (Negative) S. pyogenes GrpA KOURTNEY (Negative) Independent Interpretation I performed an independent interpretation of an: EKG Interpretation: EKG normal sinus rhythm at a ventricular rate of 78 beats per minute, no ST elevation or depression. Radiology Impression Discussion of test interpretation with radiology: I have reviewed the radiologist's reading. Radiologist Impression: XR/XR chest 1V IMPRESSION: Slightly increased interstitial markings that could be seen with pulmonary edema or small airways disease in the appropriate clinical context. Dictated By: Katarina Edge Signed By: <Electronically signed by Katarina Edge in OV> Independent Historian Clinical information obtained from an independent historian. History obtained from or confirmed by: Other (Daughter) Chronic Conditions Patient?s care impacted by: Diabetes and Cancer Discharge Plan Discharge Clinical Impression: Urinary tract infection, Hypokalemia, Hypoglycemia Patient Disposition: Admitted As Inpatient Additional Instructions: Your seen in the emergency department for fevers. You have a urinary tract infection which is likely the source of these intermittent fevers. We gave you your 1st dose of antibiotic in the department today. Please continue antibiotic at home. Finish the entire course even if your feeling better. We will call you if we need to change the antibiotic that we placed you on. You tested negative for flu, COVID, RSV, and strep throat. Your chest x-ray did not show any evidence of pneumonia. Your blood work was reassuring. You had episodes of hypoglycemia which is low blood sugar. This is likely due to the glipizide you are on. I am recommending that you stop your glipizide as this will continue to happen. You need to follow-up with your primary care physician to find a better alternative as your hypoglycemia can be very dangerous and unpredictable with this medication. You also were given IV potassium and oral potassium. Please continue all potassium supplementation at home. Drink plenty of fluids get plenty of rest. If any new or worsening symptoms occur including but not limited to fevers, chills, chest pain, shortness of breath, abdominal pain, please return for re- evaluation. Print Language: Telugu
[2023-08-24 17:56] VITALS: BP 158/61; PULSE 81; RESP 20; TEMP 36.9; O2SAT 99
[2023-08-24 18:48] LABS: MANUAL DIFF FLAG NO
[2023-08-24 18:53] LABS: IDNOW Serial# 58CA691E; Strep A Nucleic Acid Negative (Negative)
[2023-08-24 18:54] LABS: Basophils Percent Auto 0.3 % (0-2); Eosinophils Absolute Auto 0.1 X10*3/uL (0.0-0.4); Hematocrit 24.1 % (37.0-47.0); Hemoglobin 7.9 g/dl (12.0-16.0); Imm Gran Abs Auto 0.03 X10*3/uL (0.00-0.03); Imm Gran Pct Auto 0.3 % (0.0-0.4); Lymphocytes Absolute Auto 1.6 X10*3/uL (1.2-4.9); Lymphocytes Percent Auto 16.8 % (20-40); Mean Corpuscular HGB Conc 32.8 g/dl (31.0-35.0); Mean Corpuscular Hemoglobin 24.5 pg (27.0-33.0); Mean Corpuscular Volume 74.8 fL (80.0-98.0); Monocytes Absolute Auto 1.2 X10*3/uL (0.1-1.2); Monocytes Percent Auto 12.7 % (2-11); Neutrophils Absolute Auto 6.3 x10*3/uL (2.0-8.3); Neutrophils Percent Auto 68.9 % (45-73); Platelet Count 270 X10*3/uL (160-400); Red Blood Count 3.22 X10*6/uL (4.20-5.50); Red Cell Distribution Width 19.6 % (11.0-16.0); White Blood Count 9.2 X10*3/uL (4.8-10.8)
[2023-08-24 19:06] LABS: Lactic Acid 0.6 mmol/L (0.5-2.0)
[2023-08-24 19:21] VITALS: BP 138/60; PULSE 84; RESP 20; TEMP 36.8; O2SAT 98
[2023-08-24 19:22] LABS: Influenza A PCR NEGATIVE (Negative); Influenza B PCR NEGATIVE (Negative); Resp Syncy Virus RNA Qual PCR NEGATIVE (Negative); SARS COV2 PCR INHOUSE NEGATIVE (Negative)
[2023-08-24 19:24] LABS: Alanine Aminotransferase 64 U/L (0-31); Alkaline Phosphatase 108 U/L (39-117); Anion Gap 13 (12-20); Aspartate Amino Transferase 87 U/L (5-31); Bilirubin Total 0.7 mg/dL (0.0-1.0); Blood Urea Nitrogen 7 mg/dL (9-16); Calcium 9.1 mg/dL (8.4-10.2); Carbon Dioxide 22 mmol/L (22-29); Chloride 107 mmol/L (96-108); Creatinine Clr Calc Pharmacy 92.7; Estimated Glomerular Filt Rate > 60; Glucose Random 47 mg/dL (60-115); Magnesium 1.7 mg/dL (1.6-2.6); Potassium 2.4 mmol/L (3.3-5.1); Sodium 140 mmol/L (135-145); Total Protein 6.7 g/dL (6.5-8.0)
--- NOTE | 2023-08-24 19:30 | ECG_ITS ---
Test Reason : HYPOKALEMIA Blood Pressure : / mmHG Vent. Rate : 078 BPM Atrial Rate : 078 BPM P-R Int : 140 ms QRS Dur : 080 ms QT Int : 370 ms P-R-T Axes : 000 -24 -20 degrees QTc Int : 421 ms Unusual P wave axis Nonspecific T wave abnormality Abnormal ECG When compared with ECG of 04-JUL-2023 09:10, Nonspecific T wave abnormality now evident in Lateral leads Ectopic atrial rhythm Referred By: Amelia Cartagena Electronically Signed By:Musa Jacome
[2023-08-24 19:44] LABS: Glucose, Whole Blood 43 mg/dL (60-115)
[2023-08-24 20:01] LABS: Glucose, Whole Blood 63 mg/dL (60-115)
[2023-08-24] MEDS: Potassium Chloride ER 20 MEQ TAB.ER.PRT 40 MEQ PO (20:05)
[2023-08-24] MEDS: KCl 40 mEq in 0.9 % Sodium Chl 40 MEQ/1,000 ML IV.SOLN 250 MEQ IV (20:05)
[2023-08-24] MEDS: Magnesium Sulfate/D5W 1 GM/100 ML PIGGYBACK IV (20:05)
[2023-08-24 20:37] LABS: Glucose, Whole Blood 95 mg/dL (60-115)
[2023-08-24 20:39] LABS: Appearance Urine Clear; Color Urine Yellow; Glucose Urine UA Negative (Negative); Leukocyte Esterase Urine Large (3+) (Negative); Nitrite Urine Negative (Negative); UMIC TRIGGER UACC YES; Urine Blood Negative (Negative); Urine Ketones Trace mg/dL (Negative); Urine Protein Trace mg/dL (Neg-Trace)
[2023-08-24 20:44] LABS: Bacteria Urine None Seen (None Seen); Hyaline Casts Urine 0-2 /LPF (0-2); RBC Urine 0-2 /HPF (0-2); UACC Culture Trigger YES; WBC Urine 21-50 /HPF (0-5)
[2023-08-24 20:45] VITALS: BP 118/58; PULSE 79; RESP 18; TEMP 36.9; O2SAT 99
[2023-08-24 22:13] LABS: Glucose, Whole Blood 79 mg/dL (60-115)
[2023-08-24] MEDS: Mag&Al/Sim/Diphenhyd/Lidocaine 10 ML ORAL.SUSP PO (22:43)
[2023-08-25] VITALS (9 sets, daily range): BP systolic 116–131; BP diastolic 46–62; PULSE 79–91; RESP 13–18; TEMP 36.5–37.5; O2SAT 93–99
[2023-08-25] MEDS: cefuroxime axetiL 250 MG TABLET PO (00:16)
[2023-08-25 00:54] LABS: Alanine Aminotransferase 62 U/L (0-31); Albumin Level 2.8 g/dL (3.5-5.0); Alkaline Phosphatase 103 U/L (39-117); Anion Gap 13 (12-20); Aspartate Amino Transferase 83 U/L (5-31); Bilirubin Total 0.7 mg/dL (0.0-1.0); Blood Urea Nitrogen 5 mg/dL (9-16); Calcium 8.8 mg/dL (8.4-10.2); Carbon Dioxide 20 mmol/L (22-29); Chloride 110 mmol/L (96-108); Creatinine Clr Calc Pharmacy 92.7; Estimated Glomerular Filt Rate > 60; Glucose Random 61 mg/dL (60-115); Sodium 140 mmol/L (135-145); Total Protein 6.5 g/dL (6.5-8.0)
[2023-08-25 01:32] LABS: Troponin-I High Sensitivity 5.3 ng/L (<3.5-17.0)
[2023-08-25 02:12] LABS: Glucose, Whole Blood 40 mg/dL (60-115)
[2023-08-25 02:30] LABS: Glucose, Whole Blood 46 mg/dL (60-115)
[2023-08-25] MEDS: Dextrose 5 % and 0.9 % NaCl 1,000 ML 125 ML IVCONT (02:54)
--- NOTE | 2023-08-25 02:57 | PC.NURSE ---
pt up for discharge, and port deaccessed. T/w then requested POC retested prior to patient leaving to be safe. POC 40. Pt asymptomatic, denies dizziness, shakiness etc. PA aware and placed new order and removed discharge. Attempted to re-access port, but it did not flush properly and no blood draw back noted. IV lines placed in left hand- intact and patent. Medications administered as per MAY. PT resting comofrtably, daughter at bedside. Plan of care ongoing
[2023-08-25 03:21] LABS: Glucose, Whole Blood 113 mg/dL (60-115)
[2023-08-25 04:08] LABS: Glucose, Whole Blood 123 mg/dL (60-115)
--- NOTE | 2023-08-25 04:15 | P.HPHOSP_ITS ---
History of Present Illness Date of Service: 08/25/23 Chief Complaint: Fever This is a 82-year-old female with pertinent history of triple negative breast cancer on immunotherapy followed by Dr Christine, hypertension, [id number] diabetes mellitus, peripheral neuropathy who presents to the emergency department for evaluation of fevers. Patient states he has been having intermittent fevers for the last 5 days. It is associated with chills. Also has been having increased urinary frequency. No dysuria. She denies cough, loose stools, abdominal pain. Patient states her glipizide was recently adjusted. No chest discomfort, palpitations, shortness of breath, changes in bowel habits. In the emergency department, UA concerning for UTI. Patient was found to be hypoglycemic in the ER. Even after p.o. intake, patient continued to be hypoglycemic in the ER and was initiated on IV dextrose fluids. Review of Systems 2 Constitutional: Constitutional: Reports chills and Reports fever(s) Cardiovascular: Cardiovascular: Reports no additional cardiovascular complaints Respiratory: Respiratory: Reports no additional respiratory complaints Gastrointestinal: Gastrointestinal: Reports no additional gastrointestinal complaints Genitourinary: Genitourinary: Reports urinary incontinence and Reports urinary urgency [facility] Medical History Peripheral neuropathy History of chemotherapy Hypokalemia Port-A-Cath in place Arthritis Elevated cholesterol Invasive ductal carcinoma of right breast Type 2 diabetes mellitus Hypertension Beta thalassemia Family History Sister Breast cancer Surgical History History of modified radical mastectomy of right breast (04/04/23) Hx of bilateral cataract extraction H/O colonoscopy History of delivery (1982) Social History Household Members: Children Housing: House Are you a primary out of school hours care worker to a significant other at home: No Do you presently have 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 or other home services: Yes (PHYSIOGNOMIST) Alcohol intake: never Comment: slight unsteadiness Patient Tobacco Use Status: Never used Tobacco Advance Directives: Yes Advance Directives on File: Yes Advance Directives Date on File: 09/01/22 Do you have a plan to hurt others: No Plan service: No Current occupational status: retired Meds Allergies Allergy/AdvReac Type Severity Reaction Status Date / Time metformin Allergy Intermediate Vomiting Verified 08/24/23 17:36 Active Medications: Current Medications Dextrose/Sodium Chloride (D5ns) 1,000 mls @ 125 mls/hr IVCONT .Q8H KYLEE Last Admin: 08/25/23 02:54 Dose: 125 mls/hr Home Medications ?Medication ?Instructions ?Recorded ?Confirmed ?Last Taken ?Type losartan 100 mg tablet 100 mg PO 3XW 08/31/22 08/14/23 04/03/23 History metoprolol succinate 50 mg 75 mg PO DAILY 08/31/22 08/14/23 04/04/23 04:30 History tablet,extended release 24 hr fluticasone propionate 50 1 spray intranasal BID PRN Nasal 12/15/22 08/14/23 04/03/23 History mcg/actuation nasal Congestion spray,suspension albuterol sulfate 90 mcg/actuation 2 puff inhalation Q6H PRN wheezing 03/23/23 08/14/23 Unknown History aerosol inhaler sennosides 8.6 mg-docusate sodium 1 tab-cap PO BEDTIME PRN 03/23/23 08/14/23 Unknown History 50 mg tablet (Senna with Docusate Constipation Sodium) glipizide 2.5 mg tablet, extended 2.5 mg PO DAILY 08/17/23 Unknown History release 24 hr Physical Exam 2 Vital Signs and Narrative: Vital Signs: Last Vital Signs Temp 98.9 F 08/25/23 04:00 Pulse 87 08/25/23 04:00 Resp 18 08/25/23 04:00 BP 122/54 L 08/25/23 04:00 Pulse Ox 98 08/25/23 04:00 O2 Del Method Room Air 08/25/23 04:00 BMI result Body Mass Index 22.1 Elderly female lying in bed in no distress Neck supple, no JVD Regular rate and rhythm, S1-S2 heard Regular breath sounds bilaterally, no wheezing or crackles appreciated Abdomen soft nontender, no guarding, no rigidity Patient is awake, alert and oriented to self, place, time and person ; no focal motor deficit Psych: Normal mood No pedal edema Results Labs 08/24/23 18:43 08/25/23 00:28 Labs: Laboratory Results - last 24 hr 08/24/23 08/24/23 08/24/23 18:24 18:43 19:41 MCV 74.8 L MCH 24.5 L MCHC 32.8 RDW 19.6 H Plt Count 270 D MPV 9.0 L Immature Gran % (Auto) 0.3 Neut % (Auto) 68.9 Lymph % (Auto) 16.8 L [place] % (Auto) 12.7 H Eos % (Auto) 1.0 Baso % (Auto) 0.3 Lymph # (Auto) 1.6 [place] # (Auto) 1.2 Eos # (Auto) 0.1 Baso # (Auto) 0.0 Abs Immat Gran (auto) 0.03 Absolute Neuts (auto) 6.3 Absolute Nucleated RBC 0.000 Nucleated RBC % (auto) 0.0 Anion Gap 13 Estim Creat Clear Calc 92.7 Estimated GFR > 60 POC Glucose 43 L* Random Glucose 47 L* Lactic Acid 0.6 Calcium 9.1 Magnesium 1.7 Total Bilirubin 0.7 AST 87 H ALT 64 H Alkaline Phosphatase 108 Total Creatine Kinase 11 L Troponin I High Sens Total Protein 6.7 Albumin 3.0 L Urine Color Urine Appearance Urine pH Ur Specific [place] Urine Protein Urine Glucose (UA) Urine Ketones Urine Blood Urine Nitrite Ur Leukocyte Esterase Urine RBC Urine WBC Ur Squamous Epith Cells Urine Bacteria Hyaline Casts Influenza Type A (PCR) NEGATIVE Influenza Type B (PCR) NEGATIVE RSV RNA Qual (PCR) NEGATIVE SARS-CoV-2 RNA (RT-PCR) NEGATIVE S. pyogenes GrpA KOURTNEY Negative 08/24/23 08/24/23 08/24/23 19:57 20:28 20:32 MCV MCH MCHC RDW Plt Count MPV Immature Gran % (Auto) Neut % (Auto) Lymph % (Auto) [place] % (Auto) Eos % (Auto) Baso % (Auto) Lymph # (Auto) [place] # (Auto) Eos # (Auto) Baso # (Auto) Abs Immat Gran (auto) Absolute Neuts (auto) Absolute Nucleated RBC Nucleated RBC % (auto) Anion Gap Estim Creat Clear Calc Estimated GFR POC Glucose 63 95 Random Glucose Lactic Acid Calcium Magnesium Total Bilirubin AST ALT Alkaline Phosphatase Total Creatine Kinase Troponin I High Sens Total Protein Albumin Urine Color Yellow Urine Appearance Clear Urine pH 7.0 Ur Specific [place] 1.010 Urine Protein Trace Urine Glucose (UA) Negative Urine Ketones Trace Urine Blood Negative Urine Nitrite Negative Ur Leukocyte Esterase Large (3+) H Urine RBC 0-2 Urine WBC 21-50 H Ur Squamous Epith Cells 3-5 Urine Bacteria None Seen Hyaline Casts 0-2 Influenza Type A (PCR) Influenza Type B (PCR) RSV RNA Qual (PCR) SARS-CoV-2 RNA (RT-PCR) S. pyogenes GrpA KOURTNEY 08/24/23 08/25/23 08/25/23 22:09 00:28 02:00 MCV MCH MCHC RDW Plt Count MPV Immature Gran % (Auto) Neut % (Auto) Lymph % (Auto) [place] % (Auto) Eos % (Auto) Baso % (Auto) Lymph # (Auto) [place] # (Auto) Eos # (Auto) Baso # (Auto) Abs Immat Gran (auto) Absolute Neuts (auto) Absolute Nucleated RBC Nucleated RBC % (auto) Anion Gap 13 Estim Creat Clear Calc 92.7 Estimated GFR > 60 POC Glucose 79 40 L* Random Glucose 61 Lactic Acid Calcium 8.8 Magnesium Total Bilirubin 0.7 AST 83 H ALT 62 H Alkaline Phosphatase 103 Total Creatine Kinase Troponin I High Sens 5.3 Total Protein 6.5 Albumin 2.8 L Urine Color Urine Appearance Urine pH Ur Specific [place] Urine Protein Urine Glucose (UA) Urine Ketones Urine Blood Urine Nitrite Ur Leukocyte Esterase Urine RBC Urine WBC Ur Squamous Epith Cells Urine Bacteria Hyaline Casts Influenza Type A (PCR) Influenza Type B (PCR) RSV RNA Qual (PCR) SARS-CoV-2 RNA (RT-PCR) S. pyogenes GrpA KOURTNEY 08/25/23 08/25/23 08/25/23 02:26 03:18 04:05 MCV MCH MCHC RDW Plt Count MPV Immature Gran % (Auto) Neut % (Auto) Lymph % (Auto) [place] % (Auto) Eos % (Auto) Baso % (Auto) Lymph # (Auto) [place] # (Auto) Eos # (Auto) Baso # (Auto) Abs Immat Gran (auto) Absolute Neuts (auto) Absolute Nucleated RBC Nucleated RBC % (auto) Anion Gap Estim Creat Clear Calc Estimated GFR POC Glucose 46 L* 113 123 H Random Glucose Lactic Acid Calcium Magnesium Total Bilirubin AST ALT Alkaline Phosphatase Total Creatine Kinase Troponin I High Sens Total Protein Albumin Urine Color Urine Appearance Urine pH Ur Specific [place] Urine Protein Urine Glucose (UA) Urine Ketones Urine Blood Urine Nitrite Ur Leukocyte Esterase Urine RBC Urine WBC Ur Squamous Epith Cells Urine Bacteria Hyaline Casts Influenza Type A (PCR) Influenza Type B (PCR) RSV RNA Qual (PCR) SARS-CoV-2 RNA (RT-PCR) S. pyogenes GrpA KOURTNEY Imaging Radiologist's Impressions: Impressions Chest X-Ray 08/24/23 19:42 IMPRESSION: Slightly increased interstitial markings that could be seen with pulmonary edema or small airways disease in the appropriate clinical context. Assessment and Plan (1) Urinary tract infection: Status: Acute (2) Hypoglycemia: Status: Acute (3) Hypokalemia: Status: Acute Plan This is a 82-year-old female with pertinent history of triple negative breast cancer on immunotherapy followed by Dr Christine, hypertension, [id number] diabetes mellitus, peripheral neuropathy who presents to the emergency department for evaluation of fevers. #. Sepsis due to UTI: Initiating empiric IV Rocephin. Resuscitated with IV fluids. Lactic acid and blood culture obtained. Follow urine culture #. Hypoglycemia in the setting of above: Currently on D5 normal saline. Patient is on glipizide at home, hold. Q 2h Accu-Cheks #. Peripheral neuropathy: On gabapentin #. Hypertension: Continue home antihypertensives #. 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 Hemoglobin above transfusion threshold #. Hypokalemia: Repleted Med rec pending DVT prophylaxis: Lovenox Full code Admit as inpatient and will require two night minimum hospital stay for IV antibiotics, monitoring of blood glucose, dextrose fluids (as above), which is not possible in a lesser acute setting. Quality Stroke Does the patient have a stroke diagnosis?: No VTE Prior VTE?: No VTE Risk Level:: Medical - moderate - high VTE Device Contraindication: Treatment Not Indicated VTE Drug Contraindication: N/A - Med Ordered
[2023-08-25 05:15] LABS: MANUAL DIFF FLAG NO
[2023-08-25 05:18] LABS: Basophils Percent Auto 0.3 % (0-2); Eosinophils Absolute Auto 0.1 X10*3/uL (0.0-0.4); Eosinophils Percent Auto 0.9 % (0-4); Hematocrit 23.4 % (37.0-47.0); Hemoglobin 7.5 g/dl (12.0-16.0); Imm Gran Abs Auto 0.02 X10*3/uL (0.00-0.03); Imm Gran Pct Auto 0.3 % (0.0-0.4); Lymphocytes Absolute Auto 0.8 X10*3/uL (1.2-4.9); Lymphocytes Percent Auto 12.2 % (20-40); Mean Corpuscular HGB Conc 32.1 g/dl (31.0-35.0); Mean Corpuscular Hemoglobin 23.8 pg (27.0-33.0); Mean Corpuscular Volume 74.3 fL (80.0-98.0); Monocytes Absolute Auto 0.8 X10*3/uL (0.1-1.2); Monocytes Percent Auto 11.9 % (2-11); Neutrophils Absolute Auto 4.9 x10*3/uL (2.0-8.3); Neutrophils Percent Auto 74.4 % (45-73); Platelet Count 245 X10*3/uL (160-400); Red Blood Count 3.15 X10*6/uL (4.20-5.50); Red Cell Distribution Width 19.8 % (11.0-16.0); White Blood Count 6.6 X10*3/uL (4.8-10.8)
[2023-08-25 05:31] LABS: Anion Gap 10 (12-20); Blood Urea Nitrogen 5 mg/dL (9-16); Calcium 8.7 mg/dL (8.4-10.2); Carbon Dioxide 21 mmol/L (22-29); Chloride 110 mmol/L (96-108); Creatinine Clr Calc Pharmacy 87.2; Estimated Glomerular Filt Rate > 60; Glucose Random 85 mg/dL (60-115); Potassium 3.1 mmol/L (3.3-5.1); Sodium 138 mmol/L (135-145)
[2023-08-25] MEDS: Albumin Human 25 % 100 ML 133.33 ML IV ×2 (05:31→07:20)
[2023-08-25 06:06] LABS: Glucose, Whole Blood 64 mg/dL (60-115)
[2023-08-25] MEDS: Dextrose 10 % 250 ML 750 ML IV ×3 (06:11→18:22)
--- NOTE | 2023-08-25 06:54 | PC.NURSE ---
PT poc 64 at 6am. notified provider. He order to give d10 . other fluids paused due to lack of access. d10 infused. D5NS resumed and increased to 200mls/hr, albumin infusing as well.
[2023-08-25 06:56] LABS: Glucose, Whole Blood 130 mg/dL (60-115)
[2023-08-25] MEDS: cefTRIAXone sodium 1 GM in 0.9 % Sodium Chloride 50 ML IV (07:11)
[2023-08-25 08:00] LABS: Glucose, Whole Blood 82 mg/dL (60-115)
--- NOTE | 2023-08-25 08:40 | PHA.MEDREC ---
Pharmacy Consult ? Medication Reconciliation Pharmacy has completed the medication reconciliation. Spoke with patient. Patient stated she is no longer on Iron or Atorvastatin. She also stated she takes her losartan randomly throughout the week but estimated it to be about every other day.
[2023-08-25] MEDS: 0.9 % Sodium Chloride Flush 3 ML SYRINGE IVFLUSH (09:37)
[2023-08-25] MEDS: Metoprolol Succinate ER 25 MG TAB.ER.24H 50 MG PO (09:38)
[2023-08-25] MEDS: Potassium Chloride ER 10 MEQ TABLET.ER PO (09:38)
[2023-08-25] MEDS: Enoxaparin Sodium 40 MG/0.4 ML SYRINGE SUBCUT (09:38)
[2023-08-25] MEDS: Potassium Chloride ER 20 MEQ TAB.ER.PRT 40 MEQ PO (09:38)
--- NOTE | 2023-08-25 10:33 | HO.PM.IMPN ---
Subjective Subjective Date of Service: 08/25/23 Interval History: sore throat Physical Exam Vital Signs: Vital Signs: Last Vital Signs Temp 97.7 F 08/25/23 09:21 Pulse 79 08/25/23 09:38 Resp 16 08/25/23 09:21 BP 131/58 L 08/25/23 09:38 Pulse Ox 93 08/25/23 09:21 O2 Del Method Room Air 08/25/23 09:21 BMI result Body Mass Index 22.1 General: AO X 3, no acute distress Resp: CTA bilateral, no accessory muscles used CVS: S1,S2,RRR GI: soft, non tender, non distended Neuro: motor grossly intact, alert Psych: appropriate affect, appropriate insight Objective Data Active Medications Acetaminophen (Acetaminophen 325 Mg Tablet) 650 mg PO Q6H PRN PRN Reason: Pain, Mild (Pain Scale 1-3), fever or headache Albuterol Sulfate (Albuterol Sulfate 90 Mcg 8 Gm Inhaler) 2 puff INHALE RQ6H PRN PRN Reason: wheezing Calcium Carbonate (Calcium Carbonate 750 Mg Tab.Chew) 750 mg PO Q4H PRN PRN Reason: Heartburn Enoxaparin Sodium (Enoxaparin Sodium 40 Mg/0.4 Ml Syringe) 40 mg SUBCUT Q24H KYLEE Last Admin: 08/25/23 09:38 Dose: 40 mg Documented By: FELIX Glucose (Glucose Gel 15 Gm Gel..Gram.) 15 gm PO Q15M PRN; Protocol PRN Reason: per Hypoglycemia Standing Ord. Ceftriaxone Sodium 1 gm/ (Sodium Chloride) 50 mls @ 100 mls/hr IV Q24H KYLEE Last Infusion: 08/25/23 07:45 Dose: Infused Documented By: MATTIE Dextrose (D10) 250 mls @ 750 mls/hr IV Q15M PRN; Protocol PRN Reason: per Hypoglycemia Standing Ord. Last Infusion: 08/25/23 06:48 Dose: Infused Documented By: MICHAEL Lidocaine/Diphenhydr/Alum/Mg/Simeth (Mag&Al/Sim/Diphenhyd/Lidocaine 10 Ml Oral.Susp) 10 ml PO Q4H PRN; Protocol PRN Reason: sore throat Losartan Potassium (Losartan Potassium 50 Mg Tablet) 100 mg PO Q48H KYLEE; Protocol Last Admin: 08/25/23 09:35 Dose: Not Given Documented By: FELIX Non-Admin Reason: Physician Held Med Magnesium Hydroxide (Milk Of Magnesia 30 Ml Oral.Susp) 30 ml PO DAILY PRN PRN Reason: Constipation Melatonin (Melatonin 3 Mg Tablet) 6 mg PO BEDTIME PRN PRN Reason: Insomnia Metoprolol Succinate (Metoprolol Succinate Er 25 Mg Tab.Er.24h) 50 mg PO DAILY [facility]; Protocol Last Admin: 08/25/23 09:38 Dose: 50 mg Documented By: FELIX Potassium Chloride (Potassium Chloride Er 20 Meq Tab.Er.Prt) 20 meq PO DAILY@1200 KYLEE Potassium Chloride (Potassium Chloride Er 10 Meq Tablet.Er) 10 meq PO DAILY [facility] Last Admin: 08/25/23 09:38 Dose: 10 meq Documented By: FELIX Sodium Chloride (0.9 % Sodium Chloride Flush 3 Ml Syringe) 3 ml IVFLUSH QSHIFT [facility] Last Admin: 08/25/23 09:37 Dose: 3 ml Documented By: FELIX Labs 08/25/23 05:05 08/25/23 05:05 Labs: Laboratory Results - last 24 hr 08/24/23 08/24/23 08/24/23 18:24 18:43 19:41 MCV 74.8 L MCH 24.5 L MCHC 32.8 RDW 19.6 H Plt Count 270 D MPV 9.0 L Immature Gran % (Auto) 0.3 Neut % (Auto) 68.9 Lymph % (Auto) 16.8 L [place] % (Auto) 12.7 H Eos % (Auto) 1.0 Baso % (Auto) 0.3 Lymph # (Auto) 1.6 [place] # (Auto) 1.2 Eos # (Auto) 0.1 Baso # (Auto) 0.0 Abs Immat Gran (auto) 0.03 Absolute Neuts (auto) 6.3 Absolute Nucleated RBC 0.000 Nucleated RBC % (auto) 0.0 Anion Gap 13 Estim Creat Clear Calc 92.7 Estimated GFR > 60 POC Glucose 43 L* Random Glucose 47 L* Lactic Acid 0.6 Calcium 9.1 Magnesium 1.7 Total Bilirubin 0.7 AST 87 H ALT 64 H Alkaline Phosphatase 108 Total Creatine Kinase 11 L Troponin I High Sens Total Protein 6.7 Albumin 3.0 L Urine Color Urine Appearance Urine pH Ur Specific [place] Urine Protein Urine Glucose (UA) Urine Ketones Urine Blood Urine Nitrite Ur Leukocyte Esterase Urine RBC Urine WBC Ur Squamous Epith Cells Urine Bacteria Hyaline Casts Influenza Type A (PCR) NEGATIVE Influenza Type B (PCR) NEGATIVE RSV RNA Qual (PCR) NEGATIVE SARS-CoV-2 RNA (RT-PCR) NEGATIVE S. pyogenes GrpA KOURTNEY Negative 08/24/23 08/24/23 08/24/23 19:57 20:28 20:32 MCV MCH MCHC RDW Plt Count MPV Immature Gran % (Auto) Neut % (Auto) Lymph % (Auto) [place] % (Auto) Eos % (Auto) Baso % (Auto) Lymph # (Auto) [place] # (Auto) Eos # (Auto) Baso # (Auto) Abs Immat Gran (auto) Absolute Neuts (auto) Absolute Nucleated RBC Nucleated RBC % (auto) Anion Gap Estim Creat Clear Calc Estimated GFR POC Glucose 63 95 Random Glucose Lactic Acid Calcium Magnesium Total Bilirubin AST ALT Alkaline Phosphatase Total Creatine Kinase Troponin I High Sens Total Protein Albumin Urine Color Yellow Urine Appearance Clear Urine pH 7.0 Ur Specific [place] 1.010 Urine Protein Trace Urine Glucose (UA) Negative Urine Ketones Trace Urine Blood Negative Urine Nitrite Negative Ur Leukocyte Esterase Large (3+) H Urine RBC 0-2 Urine WBC 21-50 H Ur Squamous Epith Cells 3-5 Urine Bacteria None Seen Hyaline Casts 0-2 Influenza Type A (PCR) Influenza Type B (PCR) RSV RNA Qual (PCR) SARS-CoV-2 RNA (RT-PCR) S. pyogenes GrpA KOURTNEY 08/24/23 08/25/23 08/25/23 22:09 00:28 02:00 MCV MCH MCHC RDW Plt Count MPV Immature Gran % (Auto) Neut % (Auto) Lymph % (Auto) [place] % (Auto) Eos % (Auto) Baso % (Auto) Lymph # (Auto) [place] # (Auto) Eos # (Auto) Baso # (Auto) Abs Immat Gran (auto) Absolute Neuts (auto) Absolute Nucleated RBC Nucleated RBC % (auto) Anion Gap 13 Estim Creat Clear Calc 92.7 Estimated GFR > 60 POC Glucose 79 40 L* Random Glucose 61 Lactic Acid Calcium 8.8 Magnesium Total Bilirubin 0.7 AST 83 H ALT 62 H Alkaline Phosphatase 103 Total Creatine Kinase Troponin I High Sens 5.3 Total Protein 6.5 Albumin 2.8 L Urine Color Urine Appearance Urine pH Ur Specific [place] Urine Protein Urine Glucose (UA) Urine Ketones Urine Blood Urine Nitrite Ur Leukocyte Esterase Urine RBC Urine WBC Ur Squamous Epith Cells Urine Bacteria Hyaline Casts Influenza Type A (PCR) Influenza Type B (PCR) RSV RNA Qual (PCR) SARS-CoV-2 RNA (RT-PCR) S. pyogenes GrpA KOURTNEY 08/25/23 08/25/23 08/25/23 02:26 03:18 04:05 MCV MCH MCHC RDW Plt Count MPV Immature Gran % (Auto) Neut % (Auto) Lymph % (Auto) [place] % (Auto) Eos % (Auto) Baso % (Auto) Lymph # (Auto) [place] # (Auto) Eos # (Auto) Baso # (Auto) Abs Immat Gran (auto) Absolute Neuts (auto) Absolute Nucleated RBC Nucleated RBC % (auto) Anion Gap Estim Creat Clear Calc Estimated GFR POC Glucose 46 L* 113 123 H Random Glucose Lactic Acid Calcium Magnesium Total Bilirubin AST ALT Alkaline Phosphatase Total Creatine Kinase Troponin I High Sens Total Protein Albumin Urine Color Urine Appearance Urine pH Ur Specific [place] Urine Protein Urine Glucose (UA) Urine Ketones Urine Blood Urine Nitrite Ur Leukocyte Esterase Urine RBC Urine WBC Ur Squamous Epith Cells Urine Bacteria Hyaline Casts Influenza Type A (PCR) Influenza Type B (PCR) RSV RNA Qual (PCR) SARS-CoV-2 RNA (RT-PCR) S. pyogenes GrpA KOURTNEY 08/25/23 08/25/23 08/25/23 05:05 06:01 06:53 MCV 74.3 L MCH 23.8 L MCHC 32.1 RDW 19.8 H Plt Count 245 MPV 9.0 L Immature Gran % (Auto) 0.3 Neut % (Auto) 74.4 H Lymph % (Auto) 12.2 L [place] % (Auto) 11.9 H Eos % (Auto) 0.9 Baso % (Auto) 0.3 Lymph # (Auto) 0.8 L [place] # (Auto) 0.8 Eos # (Auto) 0.1 Baso # (Auto) 0.0 Abs Immat Gran (auto) 0.02 Absolute Neuts (auto) 4.9 Absolute Nucleated RBC 0.000 Nucleated RBC % (auto) 0.0 Anion Gap 10 L Estim Creat Clear Calc 87.2 Estimated GFR > 60 POC Glucose 64 130 H Random Glucose 85 Lactic Acid Calcium 8.7 Magnesium Total Bilirubin AST ALT Alkaline Phosphatase Total Creatine Kinase Troponin I High Sens Total Protein Albumin Urine Color Urine Appearance Urine pH Ur Specific [place] Urine Protein Urine Glucose (UA) Urine Ketones Urine Blood Urine Nitrite Ur Leukocyte Esterase Urine RBC Urine WBC Ur Squamous Epith Cells Urine Bacteria Hyaline Casts Influenza Type A (PCR) Influenza Type B (PCR) RSV RNA Qual (PCR) SARS-CoV-2 RNA (RT-PCR) S. pyogenes GrpA KOURTNEY 08/25/23 07:57 MCV MCH MCHC RDW Plt Count MPV Immature Gran % (Auto) Neut % (Auto) Lymph % (Auto) [place] % (Auto) Eos % (Auto) Baso % (Auto) Lymph # (Auto) [place] # (Auto) Eos # (Auto) Baso # (Auto) Abs Immat Gran (auto) Absolute Neuts (auto) Absolute Nucleated RBC Nucleated RBC % (auto) Anion Gap Estim Creat Clear Calc Estimated GFR POC Glucose 82 Random Glucose Lactic Acid Calcium Magnesium Total Bilirubin AST ALT Alkaline Phosphatase Total Creatine Kinase Troponin I High Sens Total Protein Albumin Urine Color Urine Appearance Urine pH Ur Specific [place] Urine Protein Urine Glucose (UA) Urine Ketones Urine Blood Urine Nitrite Ur Leukocyte Esterase Urine RBC Urine WBC Ur Squamous Epith Cells Urine Bacteria Hyaline Casts Influenza Type A (PCR) Influenza Type B (PCR) RSV RNA Qual (PCR) SARS-CoV-2 RNA (RT-PCR) S. pyogenes GrpA KOURTNEY Microbiology Microbiology Results: Microbiology 08/24/23 20:45 Urine Culture - Preliminary Urine clean catch - Urine chung top Culture too young to evaluate. Assessment and Plan (1) Hypoglycemia: Status: Acute Plan 82F PMH triple negative breast cancer on immunotherapy followed by Dr Christine, hypertension, [id number] diabetes mellitus, peripheral neuropathy who presented to the emergency department for evaluation of fevers. 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
[2023-08-25 10:39] LABS: Glucose, Whole Blood 45 mg/dL (60-115)
[2023-08-25 11:01] LABS: Estimated Average Glucose 105 mg/dL; Hemoglobin A1c % 5.3 % (<6.0)
[2023-08-25 11:06] LABS: Glucose, Whole Blood 40 mg/dL (60-115)
[2023-08-25 11:35] LABS: Glucose Random 139 mg/dL (60-115)
[2023-08-25 11:39] LABS: Glucose, Whole Blood 141 mg/dL (60-115)
[2023-08-25] MEDS: Milk of Magnesia 30 ML ORAL.SUSP PO (11:40)
[2023-08-25] MEDS: Potassium Chloride ER 20 MEQ TAB.ER.PRT PO (11:40)
--- NOTE | 2023-08-25 11:56 | PC.NURSE ---
Addendum entered by Mica Evans RN 08/25/23 12:07: stat random glucose 139, taken at 1107. Original Note: POC at 1034 45. pt asymptomatic. 2 juices given and stat venous glucose ordered per protocol and Dr Arenas notified. POC rechecked at [address] Arenas notified and PRN 250ml D10 IV administered over 20 minutes per order. Stat random glucose 107. POC rechecked at [address] Arenas aware.
[2023-08-25] MEDS: Mag&Al/Sim/Diphenhyd/Lidocaine 10 ML ORAL.SUSP PO (12:01)
[2023-08-25 12:44] LABS: Glucose, Whole Blood 182 mg/dL (60-115)
[2023-08-25 14:42] LABS: Glucose, Whole Blood 122 mg/dL (60-115)
[2023-08-25 16:06] LABS: Glucose, Whole Blood 72 mg/dL (60-115)
[2023-08-25 18:10] LABS: Glucose, Whole Blood 53 mg/dL (60-115)
[2023-08-25 18:22] LABS: Glucose, Whole Blood 56 mg/dL (60-115)
[2023-08-25] MEDS: Dextrose 5 % and 0.9 % NaCl 1,000 ML 75 ML IVCONT (18:56)
[2023-08-25 19:01] LABS: Glucose, Whole Blood 153 mg/dL (60-115)
[2023-08-25 20:01] LABS: Glucose, Whole Blood 161 mg/dL (60-115)
[2023-08-25 22:01] LABS: Glucose, Whole Blood 120 mg/dL (60-115)
[2023-08-25] MEDS: Gabapentin 300 MG CAPSULE PO (22:27)
--- NOTE | 2023-08-25 22:30 | PC.NURSE ---
pt c/o of nerve pain in legs.pt takes gabapentin 300mg at hs PRN at home and not ordered here. notified and a one time dose of gabapentin 300mg ordered and given.
[2023-08-25 23:47] LABS: Glucose, Whole Blood 114 mg/dL (60-115)
[2023-08-26 01:59] LABS: Glucose, Whole Blood 91 mg/dL (60-115)
[2023-08-26 03:57] LABS: Glucose, Whole Blood 106 mg/dL (60-115)
[2023-08-26 04:00] VITALS: BP 144/67; PULSE 75; RESP 14; TEMP 36.3; O2SAT 97
[2023-08-26 05:48] LABS: Glucose, Whole Blood 136 mg/dL (60-115)
[2023-08-26] MEDS: cefTRIAXone sodium 1 GM in 0.9 % Sodium Chloride 50 ML IV (05:49)
[2023-08-26 06:07] LABS: Hematocrit 24.3 % (37.0-47.0); Hemoglobin 7.6 g/dl (12.0-16.0); Mean Corpuscular HGB Conc 31.3 g/dl (31.0-35.0); Mean Corpuscular Volume 76.7 fL (80.0-98.0); Mean Platelet Volume 9.1 fL (9.4-12.3); Platelet Count 249 X10*3/uL (160-400); Red Blood Count 3.17 X10*6/uL (4.20-5.50); Red Cell Distribution Width 19.3 % (11.0-16.0); White Blood Count 6.5 X10*3/uL (4.8-10.8)
[2023-08-26 06:20] LABS: Anion Gap 12 (12-20); Blood Urea Nitrogen 4 mg/dL (9-16); Carbon Dioxide 23 mmol/L (22-29); Chloride 106 mmol/L (96-108); Estimated Glomerular Filt Rate > 60; Glucose Fasting 161 mg/dL (60-99); Sodium 137 mmol/L (135-145)
[2023-08-26] MEDS: Mag&Al/Sim/Diphenhyd/Lidocaine 10 ML ORAL.SUSP PO (06:47)
[2023-08-26] MEDS: Dextrose 5 % and 0.9 % NaCl 1,000 ML 75 ML IVCONT (07:26)
[2023-08-26 08:00] VITALS: BP 149/65; PULSE 88; RESP 16; TEMP 36.3; O2SAT 96
[2023-08-26 08:15] LABS: Glucose, Whole Blood 122 mg/dL (60-115)
[2023-08-26 08:24] VITALS: BP 149/65; PULSE 88
[2023-08-26] MEDS: Enoxaparin Sodium 40 MG/0.4 ML SYRINGE SUBCUT (08:24)
[2023-08-26] MEDS: Metoprolol Succinate ER 25 MG TAB.ER.24H 50 MG PO (08:24)
[2023-08-26] MEDS: Potassium Chloride ER 10 MEQ TABLET.ER PO (08:24)
--- NOTE | 2023-08-26 08:58 | MHC.CM.PN ---
PT REPORTS HER DAUGHTER LIVES IN THE HOME WITH HER SHE HAS PRIVATELY PAID [employer] 2X/WEEK FOR SHOWERS SHE SAYS SHE HAS A ROLLATOR AND A CANE FOR DME HCP ON FILE PCP: KATE SALCIDO DELIVERED ON 08/25/23 DCP: RETURN HOME WITH RESUMPTION OF FAMILY SUPPORT AND [employer] DAUGHTER TO TRANSPORT
--- NOTE | 2023-08-26 10:08 | P.PNIM_ITS ---
Subjective Subjective Date of Service: 08/26/23 Interval History: sore throat Physical Exam 2 Vital Signs: Vital Signs: Last Vital Signs Temp 97.4 F 08/26/23 08:00 Pulse 88 08/26/23 08:24 Resp 16 08/26/23 08:00 BP 149/65 H 08/26/23 08:24 Pulse Ox 96 08/26/23 08:00 O2 Del Method Room Air 08/26/23 08:00 BMI result Body Mass Index 22.1 General: AO X 3, no acute distress Resp: CTA bilateral, no accessory muscles used CVS: S1,S2,RRR GI: soft, non tender, non distended Neuro: motor grossly intact, alert Psych: appropriate affect, appropriate insight Objective Data Active Medications Acetaminophen (Acetaminophen 325 Mg Tablet) 650 mg PO Q6H PRN PRN Reason: Pain, Mild (Pain Scale 1-3), fever or headache Albuterol Sulfate (Albuterol Sulfate 90 Mcg 8 Gm Inhaler) 2 puff INHALE RQ6H PRN PRN Reason: wheezing Calcium Carbonate (Calcium Carbonate 750 Mg Tab.Chew) 750 mg PO Q4H PRN PRN Reason: Heartburn Enoxaparin Sodium (Enoxaparin Sodium 40 Mg/0.4 Ml Syringe) 40 mg SUBCUT Q24H [facility] Last Admin: 08/26/23 08:24 Dose: 40 mg Documented By: FELIX Glucose (Glucose Gel 15 Gm Gel..Gram.) 15 gm PO Q15M PRN; Protocol PRN Reason: per Hypoglycemia Standing Ord. Ceftriaxone Sodium 1 gm/ (Sodium Chloride) 50 mls @ 100 mls/hr IV Q24H [facility] Last Infusion: 08/26/23 06:20 Dose: Infused Documented By: STAN Dextrose (D10) 250 mls @ 750 mls/hr IV Q15M PRN; Protocol PRN Reason: per Hypoglycemia Standing Ord. Last Infusion: 08/25/23 19:03 Dose: Infused Documented By: STAN Lidocaine/Diphenhydr/Alum/Mg/Simeth (Mag&Al/Sim/Diphenhyd/Lidocaine 10 Ml Oral.Susp) 10 ml PO Q4H PRN; Protocol PRN Reason: sore throat Last Admin: 08/26/23 06:47 Dose: 10 ml Documented By: HO.ODRISM Losartan Potassium (Losartan Potassium 50 Mg Tablet) 100 mg PO Q48H KYLEE; Protocol Last Admin: 08/25/23 09:35 Dose: Not Given Documented By: FELIX Non-Admin Reason: Physician Held Med Magnesium Hydroxide (Milk Of Magnesia 30 Ml Oral.Susp) 30 ml PO DAILY PRN PRN Reason: Constipation Last Admin: 08/25/23 11:40 Dose: 30 ml Documented By: FELIX Melatonin (Melatonin 3 Mg Tablet) 6 mg PO BEDTIME PRN PRN Reason: Insomnia Metoprolol Succinate (Metoprolol Succinate Er 25 Mg Tab.Er.24h) 50 mg PO DAILY KYLEE; Protocol Last Admin: 08/26/23 08:24 Dose: 50 mg Documented By: FELIX Potassium Chloride (Potassium Chloride Er 20 Meq Tab.Er.Prt) 20 meq PO DAILY@1200 KYLEE Last Admin: 08/25/23 11:40 Dose: 20 meq Documented By: FELIX Potassium Chloride (Potassium Chloride Er 10 Meq Tablet.Er) 10 meq PO DAILY [facility] Last Admin: 08/26/23 08:24 Dose: 10 meq Documented By: FELIX Sodium Chloride (0.9 % Sodium Chloride Flush 3 Ml Syringe) 3 ml IVFLUSH QSHIFT [facility] Last Admin: 08/26/23 06:59 Dose: Not Given Documented By: FELIX Non-Admin Reason: IV Running Labs 08/26/23 05:28 08/26/23 05:28 Labs: Laboratory Results - last 24 hr 08/25/23 08/25/23 08/25/23 05:05 10:34 10:53 MCV MCH MCHC RDW Plt Count MPV Absolute Nucleated RBC Nucleated RBC % (auto) Anion Gap Estim Creat Clear Calc Estimated GFR POC Glucose 45 L* 40 L* Random Glucose Fasting Glucose Estimat Average Glucose 105 Hemoglobin A1c % 5.3 Calcium 08/25/23 08/25/23 08/25/23 11:07 11:35 12:40 MCV MCH MCHC RDW Plt Count MPV Absolute Nucleated RBC Nucleated RBC % (auto) Anion Gap Estim Creat Clear Calc Estimated GFR POC Glucose 141 H 182 H Random Glucose 139 H Fasting Glucose Estimat Average Glucose Hemoglobin A1c % Calcium 08/25/23 08/25/23 08/25/23 14:37 15:59 18:05 MCV MCH MCHC RDW Plt Count MPV Absolute Nucleated RBC Nucleated RBC % (auto) Anion Gap Estim Creat Clear Calc Estimated GFR POC Glucose 122 H 72 53 L* Random Glucose Fasting Glucose Estimat Average Glucose Hemoglobin A1c % Calcium 08/25/23 08/25/23 08/25/23 18:19 18:57 19:57 MCV MCH MCHC RDW Plt Count MPV Absolute Nucleated RBC Nucleated RBC % (auto) Anion Gap Estim Creat Clear Calc Estimated GFR POC Glucose 56 L* 153 H 161 H Random Glucose Fasting Glucose Estimat Average Glucose Hemoglobin A1c % Calcium 08/25/23 08/25/23 08/26/23 21:57 23:41 01:54 MCV MCH MCHC RDW Plt Count MPV Absolute Nucleated RBC Nucleated RBC % (auto) Anion Gap Estim Creat Clear Calc Estimated GFR POC Glucose 120 H 114 91 Random Glucose Fasting Glucose Estimat Average Glucose Hemoglobin A1c % Calcium 08/26/23 08/26/23 08/26/23 03:53 05:28 05:43 MCV 76.7 L MCH 24.0 L MCHC 31.3 RDW 19.3 H Plt Count 249 MPV 9.1 L Absolute Nucleated RBC 0.000 Nucleated RBC % (auto) 0.0 Anion Gap 12 Estim Creat Clear Calc 78.0 Estimated GFR > 60 POC Glucose 106 136 H Random Glucose Fasting Glucose 161 H Estimat Average Glucose Hemoglobin A1c % Calcium 9.0 08/26/23 08:09 MCV MCH MCHC RDW Plt Count MPV Absolute Nucleated RBC Nucleated RBC % (auto) Anion Gap Estim Creat Clear Calc Estimated GFR POC Glucose 122 H Random Glucose Fasting Glucose Estimat Average Glucose Hemoglobin A1c % Calcium Microbiology Microbiology Results: Microbiology 08/24/23 20:45 Urine Culture - Final Urine clean catch - Urine chung top 08/24/23 18:55 Blood Culture - Preliminary Blood - Venous No growth after 24 hours. 08/24/23 18:42 Blood Culture - Preliminary Blood - Venous No growth after 24 hours. Assessment and Plan (1) Hypoglycemia: Status: Acute Plan 82F PMH triple negative breast cancer on immunotherapy followed by Dr Christine, hypertension, [id number]-[id number] diabetes mellitus, peripheral neuropathy who presented to the emergency department for evaluation of fevers. found to be hypoglycemic Sepsis due to UTI IV Rocephin day 3 urine growing mixed chrystal history of DM2 with Hypoglycemia hold meds, dc ivf, monitor, a1c 5.1. 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
[2023-08-26 10:19] LABS: Glucose, Whole Blood 147 mg/dL (60-115)
[2023-08-26] MEDS: Potassium Chloride ER 20 MEQ TAB.ER.PRT PO (11:48)
[2023-08-26 12:17] LABS: Glucose, Whole Blood 152 mg/dL (60-115)
[2023-08-26 15:36] VITALS: BP 147/66; PULSE 92; RESP 18; TEMP 37.2; O2SAT 96
[2023-08-26] MEDS: 0.9 % Sodium Chloride Flush 3 ML SYRINGE IVFLUSH ×2 (16:23→20:43)
[2023-08-26 16:31] LABS: Glucose, Whole Blood 174 mg/dL (60-115)
[2023-08-26 19:35] VITALS: BP 144/65; PULSE 85; RESP 16; TEMP 37.3; O2SAT 98
--- NOTE | 2023-08-26 20:06 | PM.EVENT ---
Event Note Date of Service: 08/26/23 Event Note: GI Consult-Full note dictated Imp/Recs: 1. Left-sided neck pain/discomfort worsened by swallowing. She localizes the pain at the incision site of her Portacath placed in 2022. It is somewhat tender as well. The op note describes a difficult insertion. She doesn't really seem to describe any odynophagia with esophageal-type discomfort with her swallowing and I don't see sign of oral thrush. I will hold off on an upper endoscopy for now but will order a CT of her neck for further evaluation. I can always have her undergo an upper endo later in the week if need be, but I think the yield on that will be low. D/W her in detail and she is comfortable with that plan. Thanks Time Spent With Patient Time: Total time managing care of this patient today ____ minutes.
[2023-08-26 20:11] LABS: Glucose, Whole Blood 230 mg/dL (60-115)
[2023-08-27 03:38] VITALS: BP 144/67; PULSE 76; RESP 18; TEMP 36.5; O2SAT 98
[2023-08-27] MEDS: cefTRIAXone sodium 1 GM in 0.9 % Sodium Chloride 50 ML IV (05:51)
[2023-08-27 06:28] LABS: Hematocrit 23.9 % (37.0-47.0); Hemoglobin 7.7 g/dl (12.0-16.0); Mean Corpuscular HGB Conc 32.2 g/dl (31.0-35.0); Mean Corpuscular Hemoglobin 24.3 pg (27.0-33.0); Mean Corpuscular Volume 75.4 fL (80.0-98.0); Mean Platelet Volume 9.3 fL (9.4-12.3); Platelet Count 259 X10*3/uL (160-400); Red Blood Count 3.17 X10*6/uL (4.20-5.50); Red Cell Distribution Width 18.9 % (11.0-16.0); White Blood Count 8.1 X10*3/uL (4.8-10.8)
[2023-08-27 06:34] LABS: Anion Gap 14 (12-20); Blood Urea Nitrogen 4 mg/dL (9-16); Calcium 9.1 mg/dL (8.4-10.2); Carbon Dioxide 22 mmol/L (22-29); Chloride 106 mmol/L (96-108); Creatinine Clr Calc Pharmacy 82.4; Estimated Glomerular Filt Rate > 60; Glucose Fasting 111 mg/dL (60-99); Potassium 3.3 mmol/L (3.3-5.1); Sodium 139 mmol/L (135-145)
[2023-08-27 07:31] LABS: Glucose, Whole Blood 114 mg/dL (60-115)
[2023-08-27 07:33] VITALS: BP 148/66; PULSE 77; RESP 16; TEMP 36.2; O2SAT 100
[2023-08-27 08:24] VITALS: BP 148/66; PULSE 77
[2023-08-27] MEDS: Enoxaparin Sodium 40 MG/0.4 ML SYRINGE SUBCUT (08:24)
[2023-08-27] MEDS: Metoprolol Succinate ER 25 MG TAB.ER.24H 50 MG PO (08:24)
[2023-08-27] MEDS: Potassium Chloride ER 10 MEQ TABLET.ER PO (08:25)
[2023-08-27] MEDS: 0.9 % Sodium Chloride Flush 3 ML SYRINGE IVFLUSH ×3 (08:25→19:11)
[2023-08-27] MEDS: iohexoL 350 MG/ML 75 ML INFUS..BTL 60 ML IV (09:34)
--- NOTE | 2023-08-27 09:50 | CONS_ITS ---
DATE OF SERVICE: 08/25/2023 REASON FOR CONSULTATION: Painful swallowing and neck pain. HISTORY OF PRESENT ILLNESS: The patient is an 82-year-old female, who describes a painful area along the left side of her neck in relation to swallowing both liquids and solids. She localizes the discomfort at the incision site of a previously placed Port-A-Cath. It is both tender when she pushes on it as well as when she tries to swallow. She denies any actual pain with swallowing that is localized to the sternal notch or chest area. She denies any dysphagia. Her appetite has been fairly good, but she has been hesitant to eat because of the discomfort. The Port-A-Cath was actually placed last year and in reviewing the operative note, it seemed to be a quite difficult procedure and required a few different attempts. In any event, she denies any vomiting, abdominal pain, nor diarrhea. She has been under the care of Dr. Christine in regard to her breast cancer. According to a note from earlier this month, she was treated with chemotherapy in 2022 and then she underwent a right mastectomy at the end of March of this year. It looks like she was going to start immunotherapy. Her presentation to the hospital was precipitated by some fever and what appears to be a UTI. She reports that she is feeling better since being started on antibiotics. In regard to the swallowing and pain, she is able to tolerate soft things, but anything more solid gives her pain localized to that area that she points to which is right at the incision site of the Port-A-Cath. PRESENT MEDICATIONS: Include ceftriaxone, acetaminophen, albuterol inhaler p.r.n., Lovenox, gabapentin, losartan, melatonin, metoprolol, potassium. PAST MEDICAL HISTORY: Surgeries include the recent right mastectomy as well as a . She does have a history of diabetes and hypertension. She denies history of MD or stroke. SOCIAL HISTORY: She does not smoke, nor use any alcohol. She is originally from [facility]. FAMILY HISTORY: Noncontributory. REVIEW OF SYSTEMS: CONSTITUTIONAL: She has been feeling somewhat weak in relation to her recent fever and difficulty with her eating. CARDIAC: No chest pain. PULMONARY: No coughing, nor hemoptysis. GI: As above. URINARY: No dysuria. No hematuria. PHYSICAL EXAMINATION: GENERAL: The patient is a pleasant, alert, comfortable-appearing female. SKIN: Warm and dry. HEENT: Anicteric sclerae. No sign of oral thrush. NECK: Notable for a small incision site on the left side with some tenderness. There is no fluctuance, nor mass. CARDIAC: Normal S1, S2. ABDOMEN: Soft, nondistended, nontender without mass. EXTREMITIES: Without edema. LABORATORY DATA: White blood cell count 6.5, hemoglobin 7.6, MCV 77, platelets 249,000. Normal electrolytes, BUN 4, creatinine 0.6. Total bilirubin 0.7, AST 83, ALT 62, alkaline phosphatase 103, albumin 2.8. Chest x-ray showed some slight increased interstitial markings consistent with possible pulmonary edema with small airways disease. Urine culture is mixed chrystal. Blood cultures are negative thus far. Abdominal ultrasound in June was negative for any liver mass or biliary disease. IMPRESSION: In regard to the patient's current symptomatology, I do not think this is esophageal-related such as an infectious esophagitis given the location of her pain, the localization to the region of the incision of the previous Port-A-Cath, and no sign of any oral thrush on oral exam. As such, I think an upper endoscopy would be of low yield at this point. I did recommend a CT scan of her neck to inspect the incision site and Port-A-Cath given the location of her pain and tenderness to palpation. I did advise her that I could always have her undergo an upper endoscopy later in the week if need be, but I think the yield on that would be low as far as anything such as esophageal candidiasis. For now I would continue any symptomatic treatment and observation, but we shall see the results of the CT scan and proceed further based on that. I did review this in detail with her and she is comfortable with that plan. Thank you for the consultation. MD SUSSY Schwartz/ROSALINDA / [phone] MUNDO
--- NOTE | 2023-08-27 10:30 | P.PNIM_ITS ---
Subjective Subjective Date of Service: 08/27/23 Interval History: difficulty swallowing/neck pain Physical Exam 2 Vital Signs: Vital Signs: Last Vital Signs Temp 97.2 F 08/27/23 07:33 Pulse 77 08/27/23 08:24 Resp 16 08/27/23 07:33 BP 148/66 H 08/27/23 08:24 Pulse Ox 100 08/27/23 07:33 O2 Del Method Room Air 08/27/23 07:33 BMI result Body Mass Index 22.1 General: AO X 3, no acute distress Resp: CTA bilateral, no accessory muscles used CVS: S1,S2,RRR GI: soft, non tender, non distended Neuro: motor grossly intact, alert Psych: appropriate affect, appropriate insight Objective Data Active Medications Acetaminophen (Acetaminophen 325 Mg Tablet) 650 mg PO Q6H PRN PRN Reason: Pain, Mild (Pain Scale 1-3), fever or headache Albuterol Sulfate (Albuterol Sulfate 90 Mcg 8 Gm Inhaler) 2 puff INHALE RQ6H PRN PRN Reason: wheezing Calcium Carbonate (Calcium Carbonate 750 Mg Tab.Chew) 750 mg PO Q4H PRN PRN Reason: Heartburn Enoxaparin Sodium (Enoxaparin Sodium 40 Mg/0.4 Ml Syringe) 40 mg SUBCUT Q24H [facility] Last Admin: 08/27/23 08:24 Dose: 40 mg Documented By: AUSTIN Glucose (Glucose Gel 15 Gm Gel..Gram.) 15 gm PO Q15M PRN; Protocol PRN Reason: per Hypoglycemia Standing Ord. Ceftriaxone Sodium 1 gm/ (Sodium Chloride) 50 mls @ 100 mls/hr IV Q24H [facility] Last Infusion: 08/27/23 06:23 Dose: Infused Documented By: LINO Dextrose (D10) 250 mls @ 750 mls/hr IV Q15M PRN; Protocol PRN Reason: per Hypoglycemia Standing Ord. Last Infusion: 08/25/23 19:03 Dose: Infused Documented By: STAN Lidocaine/Diphenhydr/Alum/Mg/Simeth (Mag&Al/Sim/Diphenhyd/Lidocaine 10 Ml Oral.Susp) 10 ml PO Q4H PRN; Protocol PRN Reason: sore throat Last Admin: 08/26/23 06:47 Dose: 10 ml Documented By: HO.ODRISM Losartan Potassium (Losartan Potassium 50 Mg Tablet) 100 mg PO Q48H KYLEE; Protocol Last Admin: 08/25/23 09:35 Dose: Not Given Documented By: FELIX Non-Admin Reason: Physician Held Med Magnesium Hydroxide (Milk Of Magnesia 30 Ml Oral.Susp) 30 ml PO DAILY PRN PRN Reason: Constipation Last Admin: 08/25/23 11:40 Dose: 30 ml Documented By: FELIX Melatonin (Melatonin 3 Mg Tablet) 6 mg PO BEDTIME PRN PRN Reason: Insomnia Metoprolol Succinate (Metoprolol Succinate Er 25 Mg Tab.Er.24h) 50 mg PO DAILY KYLEE; Protocol Last Admin: 08/27/23 08:24 Dose: 50 mg Documented By: AUSTIN Potassium Chloride (Potassium Chloride Er 20 Meq Tab.Er.Prt) 20 meq PO DAILY@1200 KYLEE Last Admin: 08/26/23 11:48 Dose: 20 meq Documented By: FELIX Potassium Chloride (Potassium Chloride Er 10 Meq Tablet.Er) 10 meq PO DAILY [facility] Last Admin: 08/27/23 08:25 Dose: 10 meq Documented By: AUSTIN Sodium Chloride (0.9 % Sodium Chloride Flush 3 Ml Syringe) 3 ml IVFLUSH QSHIFT [facility] Last Admin: 08/27/23 08:25 Dose: 3 ml Documented By: AUSTIN Labs 08/27/23 05:35 08/27/23 05:35 Labs: Laboratory Results - last 24 hr 08/26/23 08/26/23 08/26/23 12:13 16:23 20:03 MCV MCH MCHC RDW Plt Count MPV Absolute Nucleated RBC Nucleated RBC % (auto) Anion Gap Estim Creat Clear Calc Estimated GFR POC Glucose 152 H 174 H 230 H Fasting Glucose Calcium 08/27/23 08/27/23 05:35 07:05 MCV 75.4 L MCH 24.3 L MCHC 32.2 RDW 18.9 H Plt Count 259 MPV 9.3 L Absolute Nucleated RBC 0.000 Nucleated RBC % (auto) 0.0 Anion Gap 14 Estim Creat Clear Calc 82.4 Estimated GFR > 60 POC Glucose 114 Fasting Glucose 111 H Calcium 9.1 Microbiology Microbiology Results: Microbiology 08/24/23 18:55 Blood Culture - Preliminary Blood - Venous No growth after 48 hours. 08/24/23 18:42 Blood Culture - Preliminary Blood - Venous No growth after 48 hours. 08/24/23 20:45 Urine Culture - Final Urine clean catch - Urine chung top Assessment and Plan (1) Hypoglycemia: Status: Acute Plan 82F PMH triple negative breast cancer on immunotherapy followed by Dr Christine, hypertension, [id number] diabetes mellitus, peripheral neuropathy who presented to the emergency department for evaluation of fevers. found to be hypoglycemic Sepsis due to UTI IV Rocephin day 4 urine growing mixed chrystal difficulty swallowing, neck pain gi appreciated, follow up ct neck history of DM2 with Hypoglycemia holding meds, resolved, sugars okay off ivf a1c 5.1. 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
--- NOTE | 2023-08-27 10:43 | P.CDIM_ITS ---
PROVIDER RESPONSE TEXT: To clarify, the appropriate diagnosis supported by the clinical indicators: After study, Sepsis has been ruled out QUERY TEXT: PHYSICIAN'S DOCUMENTATION REQUEST Date of Query: 08/27/2023 09:26 AM EDT Patient Name: Kera Stovall Admit Date: 08/25/2023 Dear Mareclo Arenas, A review of the medical record indicates additional documentation may be needed. Please review below and update the documentation accordingly. Documentation on progress note dated 08/25/23 included the diagnosis of sepsis. The patient's infectious clinical indicators include: WBC 9.2 LA .6 T 99.5, P 91, R 16 Based on the above information and the recognized standard for sepsis, could you please clarify if th is diagnoses is still accurate and reflective of the patient's condition to ensure quality of the medical record. Sepsis is/was present and is a clinical diagnosis based on After study, Sepsis has been ruled out Other (explain) Clinically unable to determine (explain) Thank you, Kaylee Alves RN Use of terms such as suspected, likely, concern for, or probable (associated with a specific diagnosi s that is being evaluated, monitored, or treated as if it exists) are acceptable and can be coded in the inpatient se tting, when documented at the time of discharge. Please use your independent medical judgment in providing your response. THIS QUERY IS PART OF THE PERMANENT MEDICAL RECORD
--- NOTE | 2023-08-27 10:48 | MHC.CM.PN ---
Per MD rounds patient not medically cleared for dc at this time. CM will continue to follow.
[2023-08-27] MEDS: Potassium Chloride ER 20 MEQ TAB.ER.PRT PO (11:25)
[2023-08-27 11:30] LABS: Glucose, Whole Blood 103 mg/dL (60-115)
[2023-08-27] MEDS: Mag&Al/Sim/Diphenhyd/Lidocaine 10 ML ORAL.SUSP PO (12:31)
[2023-08-27 15:58] LABS: Glucose, Whole Blood 119 mg/dL (60-115)
[2023-08-27 15:59] VITALS: BP 138/63; PULSE 85; RESP 18; TEMP 36.8; O2SAT 97
[2023-08-27] MEDS: Milk of Magnesia 30 ML ORAL.SUSP PO (19:13)
[2023-08-27 20:00] VITALS: BP 133/63; PULSE 97; TEMP 36.9; O2SAT 95
[2023-08-27 20:03] LABS: Glucose, Whole Blood 143 mg/dL (60-115)
[2023-08-27] MEDS: Acetaminophen 325 MG TABLET 650 MG PO (23:08)
[2023-08-28] VITALS (9 sets, daily range): BP systolic 116–149; BP diastolic 56–69; PULSE 73–85; RESP 13–18; TEMP 36.2–38.2; O2SAT 95–100
[2023-08-28] MEDS: cefTRIAXone sodium 1 GM in 0.9 % Sodium Chloride 50 ML IV (05:25)
[2023-08-28 07:26] LABS: Glucose, Whole Blood 108 mg/dL (60-115)
[2023-08-28] MEDS: Metoprolol Succinate ER 25 MG TAB.ER.24H 50 MG PO (08:05)
[2023-08-28] MEDS: Enoxaparin Sodium 40 MG/0.4 ML SYRINGE SUBCUT (08:06)
[2023-08-28] MEDS: 0.9 % Sodium Chloride Flush 3 ML SYRINGE IVFLUSH ×3 (08:06→22:34)
[2023-08-28] MEDS: Potassium Chloride ER 10 MEQ TABLET.ER PO (08:06)
--- NOTE | 2023-08-28 09:12 | HO.PM.IMPN ---
Subjective Subjective Date of Service: 08/28/23 Interval History: difficulty swallowing/neck pain Physical Exam Vital Signs: Vital Signs: Last Vital Signs Temp 97.2 F 08/28/23 07:52 Pulse 73 08/28/23 08:05 Resp 16 08/28/23 07:52 BP 149/69 H 08/28/23 08:05 Pulse Ox 100 08/28/23 07:52 O2 Del Method Room Air 08/28/23 07:52 BMI result Body Mass Index 22.1 General: AO X 3, no acute distress Resp: CTA bilateral, no accessory muscles used CVS: S1,S2,RRR GI: soft, non tender, non distended Neuro: motor grossly intact, alert Psych: appropriate affect, appropriate insight Objective Data Active Medications Acetaminophen (Acetaminophen 325 Mg Tablet) 650 mg PO Q6H PRN PRN Reason: Pain, Mild (Pain Scale 1-3), fever or headache Last Admin: 08/27/23 23:08 Dose: 650 mg Documented By: WILLARD Albuterol Sulfate (Albuterol Sulfate 90 Mcg 8 Gm Inhaler) 2 puff INHALE RQ6H PRN PRN Reason: wheezing Calcium Carbonate (Calcium Carbonate 750 Mg Tab.Chew) 750 mg PO Q4H PRN PRN Reason: Heartburn Enoxaparin Sodium (Enoxaparin Sodium 40 Mg/0.4 Ml Syringe) 40 mg SUBCUT Q24H [facility] Last Admin: 08/28/23 08:06 Dose: 40 mg Documented By: AUSTIN Glucose (Glucose Gel 15 Gm Gel..Gram.) 15 gm PO Q15M PRN; Protocol PRN Reason: per Hypoglycemia Standing Ord. Ceftriaxone Sodium 1 gm/ (Sodium Chloride) 50 mls @ 100 mls/hr IV Q24H [facility] Last Infusion: 08/28/23 06:04 Dose: Infused Documented By: WILLARD Dextrose (D10) 250 mls @ 750 mls/hr IV Q15M PRN; Protocol PRN Reason: per Hypoglycemia Standing Ord. Last Infusion: 08/25/23 19:03 Dose: Infused Documented By: ODRISM Lidocaine/Diphenhydr/Alum/Mg/Simeth (Mag&Al/Sim/Diphenhyd/Lidocaine 10 Ml Oral.Susp) 10 ml PO Q4H PRN; Protocol PRN Reason: sore throat Last Admin: 08/27/23 12:31 Dose: 10 ml Documented By: AUSTIN Losartan Potassium (Losartan Potassium 50 Mg Tablet) 100 mg PO Q48H [facility]; Protocol Last Admin: 08/25/23 09:35 Dose: Not Given Documented By: FELIX Non-Admin Reason: Physician Held Med Magnesium Hydroxide (Milk Of Magnesia 30 Ml Oral.Susp) 30 ml PO DAILY PRN PRN Reason: Constipation Last Admin: 08/27/23 19:13 Dose: 30 ml Documented By: WILLARD Melatonin (Melatonin 3 Mg Tablet) 6 mg PO BEDTIME PRN PRN Reason: Insomnia Metoprolol Succinate (Metoprolol Succinate Er 25 Mg Tab.Er.24h) 50 mg PO DAILY [facility]; Protocol Last Admin: 08/28/23 08:05 Dose: 50 mg Documented By: AUSTIN Potassium Chloride (Potassium Chloride Er 20 Meq Tab.Er.Prt) 20 meq PO DAILY@1200 KYLEE Last Admin: 08/27/23 11:25 Dose: 20 meq Documented By: AUSTIN Potassium Chloride (Potassium Chloride Er 10 Meq Tablet.Er) 10 meq PO DAILY [facility] Last Admin: 08/28/23 08:06 Dose: 10 meq Documented By: AUSTIN Sodium Chloride (0.9 % Sodium Chloride Flush 3 Ml Syringe) 3 ml IVFLUSH QSHIFT [facility] Last Admin: 08/28/23 08:06 Dose: 3 ml Documented By: AUSTIN Labs 08/27/23 05:35 08/27/23 05:35 Labs: Laboratory Results - last 24 hr 08/27/23 08/27/23 08/27/23 11:14 15:54 19:57 POC Glucose 103 119 H 143 H 08/28/23 07:05 POC Glucose 108 Assessment and Plan (1) Hypoglycemia: Status: Acute Plan 82F PMH triple negative breast cancer on immunotherapy followed by Dr Christine, hypertension, [id number] diabetes mellitus, peripheral neuropathy who presented to the emergency department for evaluation of fevers. found to be hypoglycemic Sepsis due to UTI completed course of rocpehin, cultures negative, sepsis resolved difficulty swallowing, neck pain gi appreciated, no contributory cause found on ct neck history of DM2 with Hypoglycemia holding meds, resolved, sugars okay off ivf a1c 5.1. 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
[2023-08-28] MEDS: Potassium Chloride ER 20 MEQ TAB.ER.PRT PO (11:16)
[2023-08-28] MEDS: Acetaminophen 325 MG TABLET 650 MG PO ×2 (11:16→21:02)
[2023-08-28 11:26] LABS: Glucose, Whole Blood 172 mg/dL (60-115)
--- NOTE | 2023-08-28 12:33 | MHC.SHP ---
Pre-Procedural Eval Section A - 24 Hr Update-Section A only Date of Service: 08/29/23 The patient is an INPATIENT: Yes The patient has been examined within 24 hours of the surgical procedure. The History & Physical has been completed within 30 days and I have reviewed it.: Yes Section B - Complete if H&P > 30 days Chief Complaint: Fever Allergies: Allergies Allergy/AdvReac Type Severity Reaction Status Date / Time metformin Allergy Intermediate Vomiting Verified 08/24/23 17:36 Plan I have reviewed the history and physical and performed a pertinent physical examination on my patient. No changes have occurred unless specified. Time Spent With Patient Time: Total time managing care of this patient today ____ minutes.
--- NOTE | 2023-08-28 12:33 | PM.EVENT ---
Event Note Date of Service: 08/28/23 Event Note: GI F/U. Course noted and D/W Dr. Arenas Her CT of the neck was nonrevealing. She continues with discomfort and eating issues. Although I do feel her discomfort is not related to any specific esophageal pathology, I will proceed with an upper endoscopy to definitively exclude any significant GI process. Full consent is obtained for this, including risks of bleeding and perforation. Thanks. Time Spent With Patient Time: Total time managing care of this patient today ____ minutes.
[2023-08-28 16:23] LABS: Glucose, Whole Blood 132 mg/dL (60-115)
[2023-08-28] MEDS: Mag&Al/Sim/Diphenhyd/Lidocaine 10 ML ORAL.SUSP PO (17:32)
[2023-08-28 20:16] LABS: Glucose, Whole Blood 136 mg/dL (60-115)
--- NOTE | 2023-08-28 22:38 | PC.NURSE ---
2100 temperature 100.7 orally due for 1 unit of RBC's notified ordered to pre medicate with 2 tylenol given at 2100.2200 temperature 98.7 unit of blood hung at 2230 infusing well through #20 in right ac toll well.
[2023-08-29] VITALS (11 sets, daily range): BP systolic 112–149; BP diastolic 55–67; PULSE 67–85; RESP 16–18; TEMP 36.2–37.4; O2SAT 96–100
[2023-08-29 07:31] LABS: Glucose, Whole Blood 93 mg/dL (60-115)
[2023-08-29] MEDS: 0.9 % Sodium Chloride Flush 3 ML SYRINGE IVFLUSH ×3 (08:23→20:30)
[2023-08-29] MEDS: Metoprolol Succinate ER 25 MG TAB.ER.24H 50 MG PO (08:23)
--- NOTE | 2023-08-29 10:38 | HO.ANESPROP2 ---
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) Type 2 diabetes mellitus (Acute) Hypertension (Acute) Beta thalassemia (Acute) Past Medical History Medical History Peripheral neuropathy History of chemotherapy Hypokalemia Port-A-Cath in place Arthritis Elevated cholesterol Invasive ductal carcinoma of right breast Type 2 diabetes mellitus Hypertension Beta thalassemia Family History Family History Sister Breast cancer Family history of problems with anesthesia: No Surgical History Surgical History History of modified radical mastectomy of right breast (04/04/23) Hx of bilateral cataract extraction H/O colonoscopy History of delivery (1982) History of Problems with Anesthesia: No Social History Social History Household Members: None Housing: Apartment Are you a primary long term acute care registered nurse to a significant other at home: No Do you presently have 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 or other home services: No Alcohol intake: never Comment: slight unsteadiness Patient Tobacco Use Status: Never used Tobacco Advance Directives Date on File: 09/01/22 service: No Current occupational status: retired Meds Allergies Allergy/AdvReac Type Severity Reaction Status Date / Time metformin Allergy Intermediate Vomiting Verified 08/24/23 17:36 Active Medications: Current Medications Acetaminophen (Acetaminophen 325 Mg Tablet) 650 mg PO Q6H PRN PRN Reason: Pain, Mild (Pain Scale 1-3), fever or headache Last Admin: 08/28/23 21:02 Dose: 650 mg Albuterol Sulfate (Albuterol Sulfate 90 Mcg 8 Gm Inhaler) 2 puff INHALE RQ6H PRN PRN Reason: wheezing Calcium Carbonate (Calcium Carbonate 750 Mg Tab.Chew) 750 mg PO Q4H PRN PRN Reason: Heartburn Enoxaparin Sodium (Enoxaparin Sodium 40 Mg/0.4 Ml Syringe) 40 mg SUBCUT Q24H KYLEE Last Admin: 08/28/23 08:06 Dose: 40 mg Glucose (Glucose Gel 15 Gm Gel..Gram.) 15 gm PO Q15M PRN; Protocol PRN Reason: per Hypoglycemia Standing Ord. Dextrose (D10) 250 mls @ 750 mls/hr IV Q15M PRN; Protocol PRN Reason: per Hypoglycemia Standing Ord. Last Infusion: 08/25/23 19:03 Dose: Infused Lidocaine/Diphenhydr/Alum/Mg/Simeth (Mag&Al/Sim/Diphenhyd/Lidocaine 10 Ml Oral.Susp) 10 ml PO Q4H PRN; Protocol PRN Reason: sore throat Last Admin: 08/28/23 17:32 Dose: 10 ml Losartan Potassium (Losartan Potassium 50 Mg Tablet) 100 mg PO Q48H KYLEE; Protocol Last Admin: 08/25/23 09:35 Dose: Not Given Magnesium Hydroxide (Milk Of Magnesia 30 Ml Oral.Susp) 30 ml PO DAILY PRN PRN Reason: Constipation Last Admin: 08/27/23 19:13 Dose: 30 ml Melatonin (Melatonin 3 Mg Tablet) 6 mg PO BEDTIME PRN PRN Reason: Insomnia Metoprolol Succinate (Metoprolol Succinate Er 25 Mg Tab.Er.24h) 50 mg PO DAILY KYLEE; Protocol Last Admin: 08/29/23 08:23 Dose: 50 mg Potassium Chloride (Potassium Chloride Er 20 Meq Tab.Er.Prt) 20 meq PO DAILY@1200 KYLEE Last Admin: 08/29/23 10:24 Dose: Not Given Potassium Chloride (Potassium Chloride Er 10 Meq Tablet.Er) 10 meq PO DAILY [facility] Last Admin: 08/29/23 08:23 Dose: Not Given Sodium Chloride (0.9 % Sodium Chloride Flush 3 Ml Syringe) 3 ml IVFLUSH QSHIFT [facility] Last Admin: 08/29/23 08:23 Dose: 3 ml Home Medications ?Medication ?Instructions ?Recorded ?Confirmed ?Last Taken ?Type losartan 100 mg tablet 100 mg PO Q48H 08/31/22 08/25/23 04/03/23 History metoprolol succinate 50 mg 50 mg PO DAILY 08/31/22 08/25/23 04/04/23 04:30 History tablet,extended release 24 hr fluticasone propionate 50 1 spray intranasal BID PRN Nasal 12/15/22 08/25/23 04/03/23 History mcg/actuation nasal Congestion spray,suspension albuterol sulfate 90 mcg/actuation 2 puff inhalation Q6H PRN wheezing 03/23/23 08/25/23 Unknown History aerosol inhaler sennosides 8.6 mg-docusate sodium 1 tab-cap PO BEDTIME PRN 03/23/23 08/25/23 Unknown History 50 mg tablet (Senna with Docusate Constipation Sodium) glipizide 2.5 mg tablet, extended 2.5 mg PO DAILY 08/17/23 08/25/23 Unknown History release 24 hr potassium chloride 20 mEq 20 meq PO DAILY@1200 08/25/23 08/25/23 Unknown History tablet,extended release (K-Tab) Exam Height,Weight and Vital Signs: Height 5 ft 8 in Weight 65.9 kg Last Vital Signs Temp 99.1 F 08/29/23 10:35 Pulse 76 08/29/23 10:35 Resp 16 08/29/23 10:35 BP 140/63 H 08/29/23 10:35 Pulse Ox 99 08/29/23 10:35 O2 Del Method Room Air 08/29/23 10:35 Pertinent Lab Results Pertinent Lab Results: Laboratory Tests 08/24/23 08/24/23 08/24/23 18:24 18:43 19:41 WBC 9.2 RBC 3.22 L Hgb 7.9 L Hct 24.1 L MCV 74.8 L MCH 24.5 L MCHC 32.8 RDW 19.6 H Plt Count 270 D MPV 9.0 L Immature Gran % (Auto) 0.3 Neut % (Auto) 68.9 Lymph % (Auto) 16.8 L [place] % (Auto) 12.7 H Eos % (Auto) 1.0 Baso % (Auto) 0.3 Lymph # (Auto) 1.6 [place] # (Auto) 1.2 Eos # (Auto) 0.1 Baso # (Auto) 0.0 Abs Immat Gran (auto) 0.03 Absolute Neuts (auto) 6.3 Absolute Nucleated RBC 0.000 Nucleated RBC % (auto) 0.0 Sodium 140 Potassium 2.4 L* D Chloride 107 Carbon Dioxide 22 Anion Gap 13 BUN 7 L Creatinine 0.48 L Estim Creat Clear Calc 92.7 Estimated GFR > 60 POC Glucose 43 L* Random Glucose 47 L* Fasting Glucose Estimat Average Glucose Hemoglobin A1c % Lactic Acid 0.6 Calcium 9.1 Magnesium 1.7 Total Bilirubin 0.7 AST 87 H ALT 64 H Alkaline Phosphatase 108 Total Creatine Kinase 11 L Troponin I High Sens Total Protein 6.7 Albumin 3.0 L Urine Color Urine Appearance Urine pH Ur Specific [place] Urine Protein Urine Glucose (UA) Urine Ketones Urine Blood Urine Nitrite Ur Leukocyte Esterase Urine RBC Urine WBC Ur Squamous Epith Cells Urine Bacteria Hyaline Casts Influenza Type A (PCR) NEGATIVE Influenza Type B (PCR) NEGATIVE RSV RNA Qual (PCR) NEGATIVE SARS-CoV-2 RNA (RT-PCR) NEGATIVE S. pyogenes GrpA KOURTNEY Negative Blood Type Antibody Screen Crossmatch 08/24/23 08/24/23 08/24/23 19:57 20:28 20:32 WBC RBC Hgb Hct MCV MCH MCHC RDW Plt Count MPV Immature Gran % (Auto) Neut % (Auto) Lymph % (Auto) [place] % (Auto) Eos % (Auto) Baso % (Auto) Lymph # (Auto) [place] # (Auto) Eos # (Auto) Baso # (Auto) Abs Immat Gran (auto) Absolute Neuts (auto) Absolute Nucleated RBC Nucleated RBC % (auto) Sodium Potassium Chloride Carbon Dioxide Anion Gap BUN Creatinine Estim Creat Clear Calc Estimated GFR POC Glucose 63 95 Random Glucose Fasting Glucose Estimat Average Glucose Hemoglobin A1c % Lactic Acid Calcium Magnesium Total Bilirubin AST ALT Alkaline Phosphatase Total Creatine Kinase Troponin I High Sens Total Protein Albumin Urine Color Yellow Urine Appearance Clear Urine pH 7.0 Ur Specific [place] 1.010 Urine Protein Trace Urine Glucose (UA) Negative Urine Ketones Trace Urine Blood Negative Urine Nitrite Negative Ur Leukocyte Esterase Large (3+) H Urine RBC 0-2 Urine WBC 21-50 H Ur Squamous Epith Cells 3-5 Urine Bacteria None Seen Hyaline Casts 0-2 Influenza Type A (PCR) Influenza Type B (PCR) RSV RNA Qual (PCR) SARS-CoV-2 RNA (RT-PCR) S. pyogenes GrpA KOURTNEY Blood Type Antibody Screen Crossmatch 08/24/23 08/25/23 08/25/23 22:09 00:28 02:00 WBC RBC Hgb Hct MCV MCH MCHC RDW Plt Count MPV Immature Gran % (Auto) Neut % (Auto) Lymph % (Auto) [place] % (Auto) Eos % (Auto) Baso % (Auto) Lymph # (Auto) [place] # (Auto) Eos # (Auto) Baso # (Auto) Abs Immat Gran (auto) Absolute Neuts (auto) Absolute Nucleated RBC Nucleated RBC % (auto) Sodium 140 Potassium 3.0 L D Chloride 110 H Carbon Dioxide 20 L Anion Gap 13 BUN 5 L Creatinine 0.48 L Estim Creat Clear Calc 92.7 Estimated GFR > 60 POC Glucose 79 40 L* Random Glucose 61 Fasting Glucose Estimat Average Glucose Hemoglobin A1c % Lactic Acid Calcium 8.8 Magnesium Total Bilirubin 0.7 AST 83 H ALT 62 H Alkaline Phosphatase 103 Total Creatine Kinase Troponin I High Sens 5.3 Total Protein 6.5 Albumin 2.8 L Urine Color Urine Appearance Urine pH Ur Specific [place] Urine Protein Urine Glucose (UA) Urine Ketones Urine Blood Urine Nitrite Ur Leukocyte Esterase Urine RBC Urine WBC Ur Squamous Epith Cells Urine Bacteria Hyaline Casts Influenza Type A (PCR) Influenza Type B (PCR) RSV RNA Qual (PCR) SARS-CoV-2 RNA (RT-PCR) S. pyogenes GrpA KOURTNEY Blood Type Antibody Screen Crossmatch 08/25/23 08/25/23 08/25/23 02:26 03:18 04:05 WBC RBC Hgb Hct MCV MCH MCHC RDW Plt Count MPV Immature Gran % (Auto) Neut % (Auto) Lymph % (Auto) [place] % (Auto) Eos % (Auto) Baso % (Auto) Lymph # (Auto) [place] # (Auto) Eos # (Auto) Baso # (Auto) Abs Immat Gran (auto) Absolute Neuts (auto) Absolute Nucleated RBC Nucleated RBC % (auto) Sodium Potassium Chloride Carbon Dioxide Anion Gap BUN Creatinine Estim Creat Clear Calc Estimated GFR POC Glucose 46 L* 113 123 H Random Glucose Fasting Glucose Estimat Average Glucose Hemoglobin A1c % Lactic Acid Calcium Magnesium Total Bilirubin AST ALT Alkaline Phosphatase Total Creatine Kinase Troponin I High Sens Total Protein Albumin Urine Color Urine Appearance Urine pH Ur Specific [place] Urine Protein Urine Glucose (UA) Urine Ketones Urine Blood Urine Nitrite Ur Leukocyte Esterase Urine RBC Urine WBC Ur Squamous Epith Cells Urine Bacteria Hyaline Casts Influenza Type A (PCR) Influenza Type B (PCR) RSV RNA Qual (PCR) SARS-CoV-2 RNA (RT-PCR) S. pyogenes GrpA KOURTNEY Blood Type Antibody Screen Crossmatch 08/25/23 08/25/23 08/25/23 05:05 06:01 06:53 WBC 6.6 RBC 3.15 L Hgb 7.5 L Hct 23.4 L MCV 74.3 L MCH 23.8 L MCHC 32.1 RDW 19.8 H Plt Count 245 MPV 9.0 L Immature Gran % (Auto) 0.3 Neut % (Auto) 74.4 H Lymph % (Auto) 12.2 L [place] % (Auto) 11.9 H Eos % (Auto) 0.9 Baso % (Auto) 0.3 Lymph # (Auto) 0.8 L [place] # (Auto) 0.8 Eos # (Auto) 0.1 Baso # (Auto) 0.0 Abs Immat Gran (auto) 0.02 Absolute Neuts (auto) 4.9 Absolute Nucleated RBC 0.000 Nucleated RBC % (auto) 0.0 Sodium 138 Potassium 3.1 L Chloride 110 H Carbon Dioxide 21 L Anion Gap 10 L BUN 5 L Creatinine 0.51 Estim Creat Clear Calc 87.2 Estimated GFR > 60 POC Glucose 64 130 H Random Glucose 85 Fasting Glucose Estimat Average Glucose 105 Hemoglobin A1c % 5.3 Lactic Acid Calcium 8.7 Magnesium Total Bilirubin AST ALT Alkaline Phosphatase Total Creatine Kinase Troponin I High Sens Total Protein Albumin Urine Color Urine Appearance Urine pH Ur Specific [place] Urine Protein Urine Glucose (UA) Urine Ketones Urine Blood Urine Nitrite Ur Leukocyte Esterase Urine RBC Urine WBC Ur Squamous Epith Cells Urine Bacteria Hyaline Casts Influenza Type A (PCR) Influenza Type B (PCR) RSV RNA Qual (PCR) SARS-CoV-2 RNA (RT-PCR) S. pyogenes GrpA KOURTNEY Blood Type Antibody Screen Crossmatch 08/25/23 08/25/23 08/25/23 07:57 10:34 10:53 WBC RBC Hgb Hct MCV MCH MCHC RDW Plt Count MPV Immature Gran % (Auto) Neut % (Auto) Lymph % (Auto) [place] % (Auto) Eos % (Auto) Baso % (Auto) Lymph # (Auto) [place] # (Auto) Eos # (Auto) Baso # (Auto) Abs Immat Gran (auto) Absolute Neuts (auto) Absolute Nucleated RBC Nucleated RBC % (auto) Sodium Potassium Chloride Carbon Dioxide Anion Gap BUN Creatinine Estim Creat Clear Calc Estimated GFR POC Glucose 82 45 L* 40 L* Random Glucose Fasting Glucose Estimat Average Glucose Hemoglobin A1c % Lactic Acid Calcium Magnesium Total Bilirubin AST ALT Alkaline Phosphatase Total Creatine Kinase Troponin I High Sens Total Protein Albumin Urine Color Urine Appearance Urine pH Ur Specific [place] Urine Protein Urine Glucose (UA) Urine Ketones Urine Blood Urine Nitrite Ur Leukocyte Esterase Urine RBC Urine WBC Ur Squamous Epith Cells Urine Bacteria Hyaline Casts Influenza Type A (PCR) Influenza Type B (PCR) RSV RNA Qual (PCR) SARS-CoV-2 RNA (RT-PCR) S. pyogenes GrpA KOURTNEY Blood Type Antibody Screen Crossmatch 08/25/23 08/25/23 08/25/23 11:07 11:35 12:40 WBC RBC Hgb Hct MCV MCH MCHC RDW Plt Count MPV Immature Gran % (Auto) Neut % (Auto) Lymph % (Auto) [place] % (Auto) Eos % (Auto) Baso % (Auto) Lymph # (Auto) [place] # (Auto) Eos # (Auto) Baso # (Auto) Abs Immat Gran (auto) Absolute Neuts (auto) Absolute Nucleated RBC Nucleated RBC % (auto) Sodium Potassium Chloride Carbon Dioxide Anion Gap BUN Creatinine Estim Creat Clear Calc Estimated GFR POC Glucose 141 H 182 H Random Glucose 139 H Fasting Glucose Estimat Average Glucose Hemoglobin A1c % Lactic Acid Calcium Magnesium Total Bilirubin AST ALT Alkaline Phosphatase Total Creatine Kinase Troponin I High Sens Total Protein Albumin Urine Color Urine Appearance Urine pH Ur Specific [place] Urine Protein Urine Glucose (UA) Urine Ketones Urine Blood Urine Nitrite Ur Leukocyte Esterase Urine RBC Urine WBC Ur Squamous Epith Cells Urine Bacteria Hyaline Casts Influenza Type A (PCR) Influenza Type B (PCR) RSV RNA Qual (PCR) SARS-CoV-2 RNA (RT-PCR) S. pyogenes GrpA KOURTNEY Blood Type Antibody Screen Crossmatch 08/25/23 08/25/23 08/25/23 14:37 15:59 18:05 WBC RBC Hgb Hct MCV MCH MCHC RDW Plt Count MPV Immature Gran % (Auto) Neut % (Auto) Lymph % (Auto) [place] % (Auto) Eos % (Auto) Baso % (Auto) Lymph # (Auto) [place] # (Auto) Eos # (Auto) Baso # (Auto) Abs Immat Gran (auto) Absolute Neuts (auto) Absolute Nucleated RBC Nucleated RBC % (auto) Sodium Potassium Chloride Carbon Dioxide Anion Gap BUN Creatinine Estim Creat Clear Calc Estimated GFR POC Glucose 122 H 72 53 L* Random Glucose Fasting Glucose Estimat Average Glucose Hemoglobin A1c % Lactic Acid Calcium Magnesium Total Bilirubin AST ALT Alkaline Phosphatase Total Creatine Kinase Troponin I High Sens Total Protein Albumin Urine Color Urine Appearance Urine pH Ur Specific [place] Urine Protein Urine Glucose (UA) Urine Ketones Urine Blood Urine Nitrite Ur Leukocyte Esterase Urine RBC Urine WBC Ur Squamous Epith Cells Urine Bacteria Hyaline Casts Influenza Type A (PCR) Influenza Type B (PCR) RSV RNA Qual (PCR) SARS-CoV-2 RNA (RT-PCR) S. pyogenes GrpA KOURTNEY Blood Type Antibody Screen Crossmatch 08/25/23 08/25/23 08/25/23 18:19 18:57 19:57 WBC RBC Hgb Hct MCV MCH MCHC RDW Plt Count MPV Immature Gran % (Auto) Neut % (Auto) Lymph % (Auto) [place] % (Auto) Eos % (Auto) Baso % (Auto) Lymph # (Auto) [place] # (Auto) Eos # (Auto) Baso # (Auto) Abs Immat Gran (auto) Absolute Neuts (auto) Absolute Nucleated RBC Nucleated RBC % (auto) Sodium Potassium Chloride Carbon Dioxide Anion Gap BUN Creatinine Estim Creat Clear Calc Estimated GFR POC Glucose 56 L* 153 H 161 H Random Glucose Fasting Glucose Estimat Average Glucose Hemoglobin A1c % Lactic Acid Calcium Magnesium Total Bilirubin AST ALT Alkaline Phosphatase Total Creatine Kinase Troponin I High Sens Total Protein Albumin Urine Color Urine Appearance Urine pH Ur Specific [place] Urine Protein Urine Glucose (UA) Urine Ketones Urine Blood Urine Nitrite Ur Leukocyte Esterase Urine RBC Urine WBC Ur Squamous Epith Cells Urine Bacteria Hyaline Casts Influenza Type A (PCR) Influenza Type B (PCR) RSV RNA Qual (PCR) SARS-CoV-2 RNA (RT-PCR) S. pyogenes GrpA KOURTNEY Blood Type Antibody Screen Crossmatch 08/25/23 08/25/23 08/26/23 21:57 23:41 01:54 WBC RBC Hgb Hct MCV MCH MCHC RDW Plt Count MPV Immature Gran % (Auto) Neut % (Auto) Lymph % (Auto) [place] % (Auto) Eos % (Auto) Baso % (Auto) Lymph # (Auto) [place] # (Auto) Eos # (Auto) Baso # (Auto) Abs Immat Gran (auto) Absolute Neuts (auto) Absolute Nucleated RBC Nucleated RBC % (auto) Sodium Potassium Chloride Carbon Dioxide Anion Gap BUN Creatinine Estim Creat Clear Calc Estimated GFR POC Glucose 120 H 114 91 Random Glucose Fasting Glucose Estimat Average Glucose Hemoglobin A1c % Lactic Acid Calcium Magnesium Total Bilirubin AST ALT Alkaline Phosphatase Total Creatine Kinase Troponin I High Sens Total Protein Albumin Urine Color Urine Appearance Urine pH Ur Specific [place] Urine Protein Urine Glucose (UA) Urine Ketones Urine Blood Urine Nitrite Ur Leukocyte Esterase Urine RBC Urine WBC Ur Squamous Epith Cells Urine Bacteria Hyaline Casts Influenza Type A (PCR) Influenza Type B (PCR) RSV RNA Qual (PCR) SARS-CoV-2 RNA (RT-PCR) S. pyogenes GrpA KOURTNEY Blood Type Antibody Screen Crossmatch 08/26/23 08/26/23 08/26/23 03:53 05:28 05:43 WBC 6.5 RBC 3.17 L Hgb 7.6 L Hct 24.3 L MCV 76.7 L MCH 24.0 L MCHC 31.3 RDW 19.3 H Plt Count 249 MPV 9.1 L Immature Gran % (Auto) Neut % (Auto) Lymph % (Auto) [place] % (Auto) Eos % (Auto) Baso % (Auto) Lymph # (Auto) [place] # (Auto) Eos # (Auto) Baso # (Auto) Abs Immat Gran (auto) Absolute Neuts (auto) Absolute Nucleated RBC 0.000 Nucleated RBC % (auto) 0.0 Sodium 137 Potassium 4.0 D Chloride 106 Carbon Dioxide 23 Anion Gap 12 BUN 4 L Creatinine 0.57 Estim Creat Clear Calc 78.0 Estimated GFR > 60 POC Glucose 106 136 H Random Glucose Fasting Glucose 161 H Estimat Average Glucose Hemoglobin A1c % Lactic Acid Calcium 9.0 Magnesium Total Bilirubin AST ALT Alkaline Phosphatase Total Creatine Kinase Troponin I High Sens Total Protein Albumin Urine Color Urine Appearance Urine pH Ur Specific [place] Urine Protein Urine Glucose (UA) Urine Ketones Urine Blood Urine Nitrite Ur Leukocyte Esterase Urine RBC Urine WBC Ur Squamous Epith Cells Urine Bacteria Hyaline Casts Influenza Type A (PCR) Influenza Type B (PCR) RSV RNA Qual (PCR) SARS-CoV-2 RNA (RT-PCR) S. pyogenes GrpA KOURTNEY Blood Type Antibody Screen Crossmatch 08/26/23 08/26/23 08/26/23 08:09 10:07 12:13 WBC RBC Hgb Hct MCV MCH MCHC RDW Plt Count MPV Immature Gran % (Auto) Neut % (Auto) Lymph % (Auto) [place] % (Auto) Eos % (Auto) Baso % (Auto) Lymph # (Auto) [place] # (Auto) Eos # (Auto) Baso # (Auto) Abs Immat Gran (auto) Absolute Neuts (auto) Absolute Nucleated RBC Nucleated RBC % (auto) Sodium Potassium Chloride Carbon Dioxide Anion Gap BUN Creatinine Estim Creat Clear Calc Estimated GFR POC Glucose 122 H 147 H 152 H Random Glucose Fasting Glucose Estimat Average Glucose Hemoglobin A1c % Lactic Acid Calcium Magnesium Total Bilirubin AST ALT Alkaline Phosphatase Total Creatine Kinase Troponin I High Sens Total Protein Albumin Urine Color Urine Appearance Urine pH Ur Specific [place] Urine Protein Urine Glucose (UA) Urine Ketones Urine Blood Urine Nitrite Ur Leukocyte Esterase Urine RBC Urine WBC Ur Squamous Epith Cells Urine Bacteria Hyaline Casts Influenza Type A (PCR) Influenza Type B (PCR) RSV RNA Qual (PCR) SARS-CoV-2 RNA (RT-PCR) S. pyogenes GrpA KOURTNEY Blood Type Antibody Screen Crossmatch 08/26/23 08/26/23 08/27/23 16:23 20:03 05:35 WBC 8.1 RBC 3.17 L Hgb 7.7 L Hct 23.9 L MCV 75.4 L MCH 24.3 L MCHC 32.2 RDW 18.9 H Plt Count 259 MPV 9.3 L Immature Gran % (Auto) Neut % (Auto) Lymph % (Auto) [place] % (Auto) Eos % (Auto) Baso % (Auto) Lymph # (Auto) [place] # (Auto) Eos # (Auto) Baso # (Auto) Abs Immat Gran (auto) Absolute Neuts (auto) Absolute Nucleated RBC 0.000 Nucleated RBC % (auto) 0.0 Sodium 139 Potassium 3.3 Chloride 106 Carbon Dioxide 22 Anion Gap 14 BUN 4 L Creatinine 0.54 Estim Creat Clear Calc 82.4 Estimated GFR > 60 POC Glucose 174 H 230 H Random Glucose Fasting Glucose 111 H Estimat Average Glucose Hemoglobin A1c % Lactic Acid Calcium 9.1 Magnesium Total Bilirubin AST ALT Alkaline Phosphatase Total Creatine Kinase Troponin I High Sens Total Protein Albumin Urine Color Urine Appearance Urine pH Ur Specific [place] Urine Protein Urine Glucose (UA) Urine Ketones Urine Blood Urine Nitrite Ur Leukocyte Esterase Urine RBC Urine WBC Ur Squamous Epith Cells Urine Bacteria Hyaline Casts Influenza Type A (PCR) Influenza Type B (PCR) RSV RNA Qual (PCR) SARS-CoV-2 RNA (RT-PCR) S. pyogenes GrpA KOURTNEY Blood Type Antibody Screen Crossmatch 08/27/23 08/27/23 08/27/23 07:05 11:14 15:54 WBC RBC Hgb Hct MCV MCH MCHC RDW Plt Count MPV Immature Gran % (Auto) Neut % (Auto) Lymph % (Auto) [place] % (Auto) Eos % (Auto) Baso % (Auto) Lymph # (Auto) [place] # (Auto) Eos # (Auto) Baso # (Auto) Abs Immat Gran (auto) Absolute Neuts (auto) Absolute Nucleated RBC Nucleated RBC % (auto) Sodium Potassium Chloride Carbon Dioxide Anion Gap BUN Creatinine Estim Creat Clear Calc Estimated GFR POC Glucose 114 103 119 H Random Glucose Fasting Glucose Estimat Average Glucose Hemoglobin A1c % Lactic Acid Calcium Magnesium Total Bilirubin AST ALT Alkaline Phosphatase Total Creatine Kinase Troponin I High Sens Total Protein Albumin Urine Color Urine Appearance Urine pH Ur Specific [place] Urine Protein Urine Glucose (UA) Urine Ketones Urine Blood Urine Nitrite Ur Leukocyte Esterase Urine RBC Urine WBC Ur Squamous Epith Cells Urine Bacteria Hyaline Casts Influenza Type A (PCR) Influenza Type B (PCR) RSV RNA Qual (PCR) SARS-CoV-2 RNA (RT-PCR) S. pyogenes GrpA KOURTNEY Blood Type Antibody Screen Crossmatch 08/27/23 08/28/23 08/28/23 19:57 07:05 11:21 WBC RBC Hgb Hct MCV MCH MCHC RDW Plt Count MPV Immature Gran % (Auto) Neut % (Auto) Lymph % (Auto) [place] % (Auto) Eos % (Auto) Baso % (Auto) Lymph # (Auto) [place] # (Auto) Eos # (Auto) Baso # (Auto) Abs Immat Gran (auto) Absolute Neuts (auto) Absolute Nucleated RBC Nucleated RBC % (auto) Sodium Potassium Chloride Carbon Dioxide Anion Gap BUN Creatinine Estim Creat Clear Calc Estimated GFR POC Glucose 143 H 108 172 H Random Glucose Fasting Glucose Estimat Average Glucose Hemoglobin A1c % Lactic Acid Calcium Magnesium Total Bilirubin AST ALT Alkaline Phosphatase Total Creatine Kinase Troponin I High Sens Total Protein Albumin Urine Color Urine Appearance Urine pH Ur Specific [place] Urine Protein Urine Glucose (UA) Urine Ketones Urine Blood Urine Nitrite Ur Leukocyte Esterase Urine RBC Urine WBC Ur Squamous Epith Cells Urine Bacteria Hyaline Casts Influenza Type A (PCR) Influenza Type B (PCR) RSV RNA Qual (PCR) SARS-CoV-2 RNA (RT-PCR) S. pyogenes GrpA KOURTNEY Blood Type Antibody Screen Crossmatch 08/28/23 08/28/23 08/28/23 16:19 18:55 20:12 WBC RBC Hgb Hct MCV MCH MCHC RDW Plt Count MPV Immature Gran % (Auto) Neut % (Auto) Lymph % (Auto) [place] % (Auto) Eos % (Auto) Baso % (Auto) Lymph # (Auto) [place] # (Auto) Eos # (Auto) Baso # (Auto) Abs Immat Gran (auto) Absolute Neuts (auto) Absolute Nucleated RBC Nucleated RBC % (auto) Sodium Potassium Chloride Carbon Dioxide Anion Gap BUN Creatinine Estim Creat Clear Calc Estimated GFR POC Glucose 132 H 136 H Random Glucose Fasting Glucose Estimat Average Glucose Hemoglobin A1c % Lactic Acid Calcium Magnesium Total Bilirubin AST ALT Alkaline Phosphatase Total Creatine Kinase Troponin I High Sens Total Protein Albumin Urine Color Urine Appearance Urine pH Ur Specific [place] Urine Protein Urine Glucose (UA) Urine Ketones Urine Blood Urine Nitrite Ur Leukocyte Esterase Urine RBC Urine WBC Ur Squamous Epith Cells Urine Bacteria Hyaline Casts Influenza Type A (PCR) Influenza Type B (PCR) RSV RNA Qual (PCR) SARS-CoV-2 RNA (RT-PCR) S. pyogenes GrpA KOURTNEY Blood Type A Positive Antibody Screen NEGATIVE Crossmatch See Detail 08/29/23 07:20 WBC RBC Hgb Hct MCV MCH MCHC RDW Plt Count MPV Immature Gran % (Auto) Neut % (Auto) Lymph % (Auto) [place] % (Auto) Eos % (Auto) Baso % (Auto) Lymph # (Auto) [place] # (Auto) Eos # (Auto) Baso # (Auto) Abs Immat Gran (auto) Absolute Neuts (auto) Absolute Nucleated RBC Nucleated RBC % (auto) Sodium Potassium Chloride Carbon Dioxide Anion Gap BUN Creatinine Estim Creat Clear Calc Estimated GFR POC Glucose 93 Random Glucose Fasting Glucose Estimat Average Glucose Hemoglobin A1c % Lactic Acid Calcium Magnesium Total Bilirubin AST ALT Alkaline Phosphatase Total Creatine Kinase Troponin I High Sens Total Protein Albumin Urine Color Urine Appearance Urine pH Ur Specific [place] Urine Protein Urine Glucose (UA) Urine Ketones Urine Blood Urine Nitrite Ur Leukocyte Esterase Urine RBC Urine WBC Ur Squamous Epith Cells Urine Bacteria Hyaline Casts Influenza Type A (PCR) Influenza Type B (PCR) RSV RNA Qual (PCR) SARS-CoV-2 RNA (RT-PCR) S. pyogenes GrpA KOURTNEY Blood Type Antibody Screen Crossmatch Airway Mallampati Class: III TM Dist: >3cm Neck ROM: Full Denture: Upper Assessment and Plan Assessment Anesthesia Assessment: Anesthesia Plan Discussed and Chart Reviewed Final Anesthetic Review Family History of Problems with Anesthesia: No History of Problems with Anesthesia: No NPO: Yes ASA Class: III Final Preanesthetic Review: No Changes in Pt Med Stat, Meds/Allgs Chart Reviewed, Consent Obtained/Reviewed and Anes Risks/Benef Reviewed Patient Risk: Intermediate Procedure Risk: Low Anesthetic Plan Anesthetic Plan: TIVA Disposition: Standard PACU
[2023-08-29 10:46] LABS: Glucose, Whole Blood 89 mg/dL (60-115)
[2023-08-29 11:24] LABS: Glucose, Whole Blood 88 mg/dL (60-115)
--- NOTE | 2023-08-29 11:24 | P.BOP_ITS ---
Brief Operative Note Date of Service: 08/29/23 Pre-op diagnosis: Painful swallowing Post-op diagnosis: other (Gastric polyps, Hiatal hernia) Procedure: EGD with biopsies Surgeon: Og Hook MD Anesthesia: MAC Was an Senior Military Analyst used for this Procedure?: No Estimated blood loss (mL): 2.0 Pathology: other (A. Gastric antral polyps B. Esophageal biopsies) Condition: stable Disposition: PACU
--- NOTE | 2023-08-29 11:26 | PM.EVENT ---
Event Note Date of Service: 08/29/23 Event Note: GI-EGD with biopsies-Full note dictated Findings: 1. Gastric antral polyps-biopsies taken 2. Hiatal hernia 3. Some nonspecific edema in the esophagus with mucous, but no sign of candidiasis, ulcerations, esophagitis, etc. Random biopsies taken throughout the esophagus Rec: Check path. Start a PPI. Advance diet. F/U CBC in AM. Observe. I left a message on daughter's, Princess's, voicemail. Thanks Time Spent With Patient Time: Total time managing care of this patient today ____ minutes.
--- NOTE | 2023-08-29 11:27 | MHC.CM.PN ---
Addendum entered by Kerry Garnica RN 08/29/23 13:11: PT rec home w/ services. CM met with patient and daughter at beside. Patient prefers [facility]. Referral sent via [facility]. CM will continue to follow. Original Note: Per MD rounds patient is not medically cleared for dc. Plan for EGD today. CM will continue to follow.
[2023-08-29] MEDS: Omeprazole 20 MG CAPSULE.DR PO (12:24)
--- NOTE | 2023-08-29 12:27 | OP_ITS ---
DATE OF SERVICE: 08/29/2023 SURGEON: Og Hook MD INDICATIONS: The patient presents for evaluation of painful swallowing. Full consent has been obtained from her for this, including risks of bleeding and perforation. PREOPERATIVE DIAGNOSIS: Painful swallowing. POSTOPERATIVE DIAGNOSIS: PROCEDURE PERFORMED: Esophagogastroduodenoscopy with biopsies. ESTIMATED BLOOD LOSS: COMPLICATIONS: ANESTHESIA: Monitored anesthesia care. ASSISTANTS: SPECIMENS: POSTOPERATIVE DIAGNOSES: Painful swallowing, gastric polyps, hiatal hernia, rule out infectious esophagitis. DESCRIPTION OF PROCEDURE: The patient was placed in the left lateral decubitus position. The Olympus video gastroscope was passed in the posterior oropharynx and upper esophagus under direct vision. The scope was passed slowly into the distal esophagus. The gastroesophageal junction appeared at 36 cm. The scope entered the stomach. There was a small hiatal hernia. The scope was advanced to pylorus and the duodenum was cannulated to the descending portion. The duodenum including the bulb appeared normal without mass or ulceration. The scope was withdrawn back in the stomach. The gastric antrum was notable for several inflammatory-appearing gastric antral polyps in the pre-pyloric region. There was no sign of any bleeding nor any suspicion for neoplasm. There was good peristalsis. The scope was retroflexed, visualizing the proximal stomach carefully, which appeared normal, without any sign of mass or ulceration. The scope was straightened. Multiple biopsies were obtained from some of the gastric antral polyps. The scope was withdrawn back in the esophagus. The entire esophagus was carefully inspected. There was some evidence of some edema, but no sign of any mucosal abnormalities such as candidiasis, ulcerations, nor esophagitis. I did obtain multiple biopsies throughout the esophagus to inspect for any underlying pathology such as infection. However, again, I did not appreciate any endoscopic evidence of that. The scope was withdrawn from the esophagus. I did inspect the hypopharynx as best as possible. I did not see any mucosal abnormalities. The scope was withdrawn from the patient. She tolerated the procedure well and was returned to the recovery area in stable condition. IMPRESSION: 1. Hiatal hernia. 2. Gastric polyps. PLAN: The results of the biopsies will be checked. I suspect the pain that she describes as her swallowing is related to the incision site from the previously placed Port-A-Cath. I did not see anything on the exam today that would account for her symptoms. I will start her on a PPI if she is already on 1 in regard to the finding of what appears to be some inflammatory gastric polyps. Her diet will be advanced again. MD SUSSY Schwartz/ROSALINDA / [phone]
--- NOTE | 2023-08-29 13:21 | HO.PM.IMPN ---
Subjective Subjective Date of Service: 08/29/23 Interval History: Seen and evaluated this morning complaining of odynophagia no feve ror chills Review of Systems Review of Systems: Yes all other systems are reviewed and are negative Physical Exam Vital Signs: Vital Signs: Last Vital Signs Temp 98.2 F 08/29/23 11:46 Pulse 85 08/29/23 12:58 Resp 17 08/29/23 11:46 BP 134/59 L 08/29/23 12:58 Pulse Ox 100 08/29/23 12:58 O2 Del Method Room Air 08/29/23 11:46 BMI result Body Mass Index 22.1 Const: Other: Constitutional : interactive, not in distress Cardiovascular : no JVP, no lower extremity edema Respiratory : bilateral chest movement, not in resp distress Gastrointestinal: soft, lax, Non tender Skin : Warm, Dry Neurological : Alert & oriented , No focal deficit Objective Data Active Medications Acetaminophen (Acetaminophen 325 Mg Tablet) 650 mg PO Q6H PRN PRN Reason: Pain, Mild (Pain Scale 1-3), fever or headache Last Admin: 08/28/23 21:02 Dose: 650 mg Documented By: WILLARD Albuterol Sulfate (Albuterol Sulfate 90 Mcg 8 Gm Inhaler) 2 puff INHALE RQ6H PRN PRN Reason: wheezing Calcium Carbonate (Calcium Carbonate 750 Mg Tab.Chew) 750 mg PO Q4H PRN PRN Reason: Heartburn Enoxaparin Sodium (Enoxaparin Sodium 40 Mg/0.4 Ml Syringe) 40 mg SUBCUT Q24H KYLEE Last Admin: 08/28/23 08:06 Dose: 40 mg Documented By: AUSTIN Glucose (Glucose Gel 15 Gm Gel..Gram.) 15 gm PO Q15M PRN; Protocol PRN Reason: per Hypoglycemia Standing Ord. Dextrose (D10) 250 mls @ 750 mls/hr IV Q15M PRN; Protocol PRN Reason: per Hypoglycemia Standing Ord. Last Infusion: 08/25/23 19:03 Dose: Infused Documented By: STAN Lidocaine/Diphenhydr/Alum/Mg/Simeth (Mag&Al/Sim/Diphenhyd/Lidocaine 10 Ml Oral.Susp) 10 ml PO Q4H PRN; Protocol PRN Reason: sore throat Last Admin: 08/28/23 17:32 Dose: 10 ml Documented By: AUSTIN Losartan Potassium (Losartan Potassium 50 Mg Tablet) 100 mg PO Q48H [facility]; Protocol Last Admin: 08/25/23 09:35 Dose: Not Given Documented By: FELIX Non-Admin Reason: Physician Held Med Magnesium Hydroxide (Milk Of Magnesia 30 Ml Oral.Susp) 30 ml PO DAILY PRN PRN Reason: Constipation Last Admin: 08/27/23 19:13 Dose: 30 ml Documented By: WILLARD Melatonin (Melatonin 3 Mg Tablet) 6 mg PO BEDTIME PRN PRN Reason: Insomnia Metoprolol Succinate (Metoprolol Succinate Er 25 Mg Tab.Er.24h) 50 mg PO DAILY [facility]; Protocol Last Admin: 08/29/23 08:23 Dose: 50 mg Documented By: NATA Omeprazole (Omeprazole 20 Mg Capsule.Dr) 20 mg PO DAILY@0630 [facility] Last Admin: 08/29/23 12:24 Dose: 20 mg Documented By: NATA Potassium Chloride (Potassium Chloride Er 20 Meq Tab.Er.Prt) 20 meq PO DAILY@1200 [facility] Last Admin: 08/29/23 10:24 Dose: Not Given Documented By: NATA Non-Admin Reason: Off Unit: Surgery Potassium Chloride (Potassium Chloride Er 10 Meq Tablet.Er) 10 meq PO DAILY [facility] Last Admin: 08/29/23 08:23 Dose: Not Given Documented By: NATA Non-Admin Reason: NPO Sodium Chloride (0.9 % Sodium Chloride Flush 3 Ml Syringe) 3 ml IVFLUSH QSHIFT [facility] Last Admin: 08/29/23 08:23 Dose: 3 ml Documented By: NATA Labs 08/27/23 05:35 08/27/23 05:35 Labs: Laboratory Results - last 24 hr 08/28/23 08/28/23 08/28/23 16:19 18:55 20:12 POC Glucose 132 H 136 H Blood Type A Positive Antibody Screen NEGATIVE Crossmatch See Detail 08/29/23 08/29/23 08/29/23 07:20 10:41 11:20 POC Glucose 93 89 88 Blood Type Antibody Screen Crossmatch Assessment and Plan (1) Hypoglycemia: Status: Acute (2) Hypokalemia: Status: Acute (3) Urinary tract infection: Status: Acute (4) Dysphagia: Status: Acute Plan 82F PMH triple negative breast cancer on immunotherapy followed by Dr Christine, hypertension, wmo-irpyyyt-zfzdljrmm diabetes mellitus, peripheral neuropathy who presented to the emergency department for evaluation of fevers. found to be hypoglycemic Sepsis due to UTI completed course of rocpehin, cultures negative, sepsis resolved difficulty swallowing, neck pain gi appreciated, no contributory cause found on ct neck for EGD today advance diet as tolerated history of DM2 with Hypoglycemia holding meds, resolved, sugars okay off ivf a1c 5.1. likely resolved DM due to weight loss, will hold off meds on discharge Peripheral neuropathy On gabapentin Hypertension metoprolol, holding losartan Chronic anemia due to thalassemia Hemoglobin above transfusion threshold acute Hypokalemia Repleted DVT prophylaxis: Lovenox Full code reason for continued hospitalization: difficulty swallowing pending EGD Quality Stroke Does the patient have a stroke diagnosis?: No VTE Prior VTE?: No VTE Risk Level:: Medical - moderate - high VTE Device Contraindication: Treatment Not Indicated VTE Drug Contraindication: N/A - Med Ordered
[2023-08-29] MEDS: Mag&Al/Sim/Diphenhyd/Lidocaine 10 ML ORAL.SUSP PO ×2 (13:45→17:11)
[2023-08-29 16:00] LABS: Glucose, Whole Blood 86 mg/dL (60-115)
[2023-08-29] MEDS: Acetaminophen 325 MG TABLET 650 MG PO (19:13)
[2023-08-29 19:56] LABS: Glucose, Whole Blood 100 mg/dL (60-115)
[2023-08-30 04:00] VITALS: BP 147/70; PULSE 67; RESP 16; TEMP 36.3; O2SAT 98
[2023-08-30] MEDS: Omeprazole 20 MG CAPSULE.DR PO (06:41)
[2023-08-30 07:08] VITALS: BP 150/67; PULSE 77; RESP 18; TEMP 37.1; O2SAT 98
[2023-08-30] MEDS: Metoprolol Succinate ER 25 MG TAB.ER.24H 50 MG PO (08:07)
[2023-08-30] MEDS: Mag&Al/Sim/Diphenhyd/Lidocaine 10 ML ORAL.SUSP PO (08:09)
[2023-08-30] MEDS: 0.9 % Sodium Chloride Flush 3 ML SYRINGE IVFLUSH (08:12)
[2023-08-30] MEDS: Potassium Chloride ER 10 MEQ TABLET.ER PO (08:19)
[2023-08-30 08:56] LABS: Glucose, Whole Blood 72 mg/dL (60-115)
[2023-08-30 09:23] VITALS: BP 150/67; PULSE 77; O2SAT 98
[2023-08-30 10:00] LABS: MANUAL DIFF FLAG NO
[2023-08-30 10:02] LABS: Basophils Percent Auto 0.4 % (0-2); Eosinophils Absolute Auto 0.1 X10*3/uL (0.0-0.4); Eosinophils Percent Auto 1.4 % (0-4); Hematocrit 29.3 % (37.0-47.0); Hemoglobin 9.2 g/dl (12.0-16.0); Imm Gran Abs Auto 0.04 X10*3/uL (0.00-0.03); Imm Gran Pct Auto 0.4 % (0.0-0.4); Lymphocytes Absolute Auto 1.1 X10*3/uL (1.2-4.9); Lymphocytes Percent Auto 11.5 % (20-40); Mean Corpuscular HGB Conc 31.4 g/dl (31.0-35.0); Mean Corpuscular Hemoglobin 24.3 pg (27.0-33.0); Mean Corpuscular Volume 77.3 fL (80.0-98.0); Mean Platelet Volume 8.8 fL (9.4-12.3); Monocytes Absolute Auto 1.2 X10*3/uL (0.1-1.2); Monocytes Percent Auto 12.2 % (2-11); Neutrophils Absolute Auto 7.1 x10*3/uL (2.0-8.3); Neutrophils Percent Auto 74.1 % (45-73); Platelet Count 274 X10*3/uL (160-400); Red Blood Count 3.79 X10*6/uL (4.20-5.50); Red Cell Distribution Width 18.8 % (11.0-16.0); White Blood Count 9.6 X10*3/uL (4.8-10.8)
[2023-08-30 10:40] VITALS: O2SAT 98
--- NOTE | 2023-08-30 11:02 | W.MHC.F2F ---
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 Reason homebound: unsteady gait / fall risk Certification: Based on the above findings, I certify that this patient is confined to the home and needs intermittent retirement care, physical therapy and/or speech therapy, or continues to need occupational therapy. The patient is under my care, and I have initiated the establishment of the plan of care. The patient will be followed by a physician who will periodically review the plan of care. Time Spent With Patient Time: Total time managing care of this patient today ____ minutes.
[2023-08-30 11:03] LABS: Glucose, Whole Blood 80 mg/dL (60-115)
[2023-08-30] MEDS: Potassium Chloride ER 20 MEQ TAB.ER.PRT PO (11:30)
[2023-08-30 12:00] VITALS: BP 135/64; PULSE 79; RESP 18; TEMP 36.6; O2SAT 98
--- NOTE | 2023-08-30 12:06 | HO.POSTANES ---
Post Anesthesia Evaluation Post Anesthesia Evaluation Date of Service: 08/29/23 Vital Signs: Vital Signs Temp Pulse Resp BP Pulse Ox O2 Del Method 08/30/23 10:40 98 Room Air 08/30/23 09:23 77 150/67 H 98 08/30/23 07:08 98.7 F 77 18 150/67 H 98 Room Air 08/30/23 04:00 97.4 F 67 16 147/70 H 98 Room Air Anesthesia: TIVA Mental Status: Awake Pain Control: Satisfactory Nausea/Vomiting: None Hydration: Adequate Anesthesia-Related Issues: No Anes. Related Issues
--- NOTE | 2023-08-30 13:07 | P.DS_ITS ---
DS: Providers Provider Date of Service: 08/30/23 Date of admission: 08/25/23 04:14 Primary care physician: Roseline Ortega MD Consults: 08/26/23 10:08 Consult to Gastroenterology Routine Consulting Provider: Og Hook Reason for consultation: odynophagia DS: Diagnosis Discharge Diagnosis (1) Hypoglycemia: Status: Acute (2) Hypokalemia: Status: Acute (3) Urinary tract infection: Status: Acute (4) Dysphagia: Status: Acute DS: Summary Hospital Course Hospital Course: Admission note HPI This is a 82-year-old female with pertinent history of triple negative breast cancer on immunotherapy followed by Dr Christine, hypertension, skt-aigwzro-bmpqosilc diabetes mellitus, peripheral neuropathy who presents to the emergency department for evaluation of fevers. Patient states he has been having intermittent fevers for the last 5 days. It is associated with chills. Also has been having increased urinary frequency. No dysuria. She denies cough, loose stools, abdominal pain. Patient states her glipizide was recently adjusted. No chest discomfort, palpitations, shortness of breath, changes in bowel habits. In the emergency department, UA concerning for UTI. Patient was found to be hypoglycemic in the ER. Even after p.o. intake, patient continued to be hypoglycemic in the ER and was initiated on IV dextrose fluids. Hospital course The patient was admitted for # Sepsis due to UTI, blood and urine cultures remained negative. Treated with Ceftriaxone with good response. To continue Ceftine on discharge. # Difficulty swallowing, gi appreciated, no contributory cause found on ct neck or in EGD. started on Omeprazole, Nystatin and Magic wash. tolerated diet. # DM2 with Hypoglycemia. Discontinue Glipizide completely. no recurrent episodes. HbA1c of 5.3. # Hypertension. Amlodipine held for low-normal readings. To hold on discharge and monitor BP at home pending PCP reevaluation Discharge plan Stop Glipizide, you blood sugar fairly controlled Hold Amlodipine, monitor blood pressure for a week then discuss readings with PCP to decide if to restart or to discontinue Continue Ceftin as prescribed Use Nystatin swish and swallow for next week Use Magic mouthwash before meals Follow with PCP as outpatient Time Attestation Discharge Coordination Time (in mins): 44 Quality: Safe Use of Opioids Does Pt have an Active Cancer Diagnosis on the Problem List?: No Quality: Stroke Does the patient have a stroke diagnosis?: No Physical Exam Vital Signs: Vital Signs: Last Vital Signs Temp 97.9 F 08/30/23 12:00 Pulse 79 08/30/23 12:00 Resp 18 08/30/23 12:00 BP 135/64 08/30/23 12:00 Pulse Ox 98 08/30/23 12:00 O2 Del Method Room Air 08/30/23 12:00 BMI result Body Mass Index 22.1 Const: Other: Constitutional : interactive, not in distress Cardiovascular : no JVP, no lower extremity edema Respiratory : bilateral chest movement, not in resp distress Gastrointestinal: soft, lax, Non tender Skin : Warm, Dry Neurological : Alert & oriented , No focal deficit DS: Data Data Completed and Pending Completed studies during hospitalization [Text1]: Procedures Resection of Right Axillary Lymphatic, Open Approach (04/04/23) Resection of Right Breast, Open Approach (04/04/23) Pending studies at discharge: Pending at discharge 08/29/23 11:04 Surgical [PTH] Routine Labs on day of discharge: Laboratory Results - last 24 hr 08/29/23 08/29/23 08/30/23 15:45 19:38 07:06 WBC RBC Hgb Hct MCV MCH MCHC RDW Plt Count MPV Immature Gran % (Auto) Neut % (Auto) Lymph % (Auto) Warrick % (Auto) Eos % (Auto) Baso % (Auto) Lymph # (Auto) Warrick # (Auto) Eos # (Auto) Baso # (Auto) Abs Immat Gran (auto) Absolute Neuts (auto) Absolute Nucleated RBC Nucleated RBC % (auto) POC Glucose 86 100 72 08/30/23 08/30/23 09:54 10:59 WBC 9.6 RBC 3.79 L Hgb 9.2 L Hct 29.3 L D MCV 77.3 L MCH 24.3 L MCHC 31.4 RDW 18.8 H Plt Count 274 MPV 8.8 L Immature Gran % (Auto) 0.4 Neut % (Auto) 74.1 H Lymph % (Auto) 11.5 L Warrick % (Auto) 12.2 H Eos % (Auto) 1.4 Baso % (Auto) 0.4 Lymph # (Auto) 1.1 L Warrick # (Auto) 1.2 Eos # (Auto) 0.1 Baso # (Auto) 0.0 Abs Immat Gran (auto) 0.04 H Absolute Neuts (auto) 7.1 Absolute Nucleated RBC 0.000 Nucleated RBC % (auto) 0.0 POC Glucose 80 Imaging Chest x-ray: Radiologist's impression: ITS Impressions Chest X-Ray 08/24/23 19:42 IMPRESSION: Slightly increased interstitial markings that could be seen with pulmonary edema or small airways disease in the appropriate clinical context. Soft Tissue Neck CT 08/27/23 09:30 IMPRESSION: There is multilevel degenerative spondylosis of the cervical spine with at least moderate canal stenosis at C4-C5 and C5-C6. If there are clinical symptoms of compressive myelopathy then a dedicated cervical spine MRI can be obtained for better anatomic characterization of the cord and canal. There is no discrete anatomic finding to provide a definitive explanation for this patient's left-sided neck pain in that there is no identifiable hematoma or discrete drainable fluid collection at the site of the Port-A-Cath implantation. Discharge Plan Discharge Anticipated Discharge Date/Time: 08/30/23 12:58 Patient Disposition: Home Health Service Discharge Diagnosis: Urine infection swallowing problem Referrals: Roseline Ortega MD [Primary Care Provider] - 1 Week Discharge Medications: New nystatin 100,000 unit/mL Suspension 400,000 unit buccal QID Qty: 200 0RF omeprazole 20 mg Capsule,Delayed Release(Dr/Ec) 20 mg PO DAILY@0630 Qty: 90 0RF Mag&Al/Sim/Diphenhyd/Lidocaine [Magic Mouthwash] 10 ml PO Q4H PRN (Reason: Swallowing pain) Qty: 500 1RF cefuroxime axetil 250 mg tablet 250 mg PO BID Qty: 5 0RF Continued sennosides-docusate sodium [Senna with Docusate Sodium] 8.6-50 mg tablet 1 tab-cap PO BEDTIME PRN (Reason: Constipation) albuterol sulfate 90 mcg/actuation HFA aerosol inhaler 2 puff inhalation Q6H PRN (Reason: wheezing) potassium chloride [K-Tab] 20 mEq tablet extended release 20 meq PO DAILY@1200 Rx Instructions: Take 10mEq in the morning and 20 mEq in the evening = 30 mEq potassium chloride daily fluticasone propionate 50 mcg/actuation spray,suspension 1 spray intranasal BID PRN (Reason: Nasal Congestion) gabapentin 300 mg capsule 300 mg PO BEDTIME PRN (Reason: nerve pain) Qty: 90 3RF guaifenesin [Mucinex] 600 mg Tablet Extended Release 12hr 600 mg PO Q12H Qty: 30 1RF potassium chloride 10 mEq Tablet Extended Release 10 meq PO DAILY Qty: 30 0RF Rx Instructions: Take 10mEq in the morning and 20 mEq in the evening = 30 mEq potassium chloride daily metoprolol succinate 50 mg tablet extended release 24 hr 50 mg PO DAILY losartan 100 mg tablet 100 mg PO Q48H Rx Instructions: PATIENT TELLS ME SHE TAKES IT ABOUT EVERY OTHER DAY Held amlodipine [Norvasc] 10 mg tablet 10 mg PO DAILY Qty: 90 3RF Hold Instructions: Monitor blood pressure at home for a week. Discuss with PCP before restarting it Discontinued glipizide 2.5 mg tablet extended release 24hr 2.5 mg PO DAILY Discharge Orders: Discharge Order (Routine); Ordered 08/30/23 Ordered By: Karina Luu Diet: Advance to usual diet Activity on Discharge: As tolerated Stand Alone Forms: Patient Portal Discharge page Print Language: Guamanian Activity Restrictions/Additional Instructions: You had episodes of hypoglycemia which is low blood sugar. This is likely due to the glipizide you are on. I am recommending that you stop your glipizide as this will continue to happen. You need to follow-up with your primary care physician to find a better alternative as your hypoglycemia can be very danger ous and unpredictable with this medication. Drink plenty of fluids get plenty of rest. If any new or worsening symptoms occur including but not limited to fevers, chills, chest pain, shortness of breath, abdominal pain, please return for re- evaluation. Care Plan Goals: Stop Glipizide, you blood sugar fairly controlled Hold Amlodipine, monitor blood pressure for a week then discuss readings with PCP to decide if to restart or to discontinue Continue Ceftin as prescribed Use Nystatin swish and swallow for next week Use Magic mouthwash before meals Follow with PCP as outpatient Health Concerns: Read below Plan of Treatment: Read below Assessment: Read below Patient Instructions: Urinary Tract Infection in Women (ED), Potassium Content of Foods List (ED), Hypokalemia (ED), Urinary Tract Infection in Older Adults (ED)
[2023-08-30] MEDS: Nystatin Oral Susp 500,000 UNIT/5 ML ORAL.SUSP 400000 UNIT BUCCAL (13:20)
--- NOTE | 2023-08-30 13:53 | MHC.CM.PN ---
CM MET WITH PT TO DISCUSS DC PLANNING SHE WILL RESUME HER PRIVATE PAY HOME CARE AND IS AWARE [facility] HAS BEEN ORDERED SHE UNDERSTANDS [facility] WILL CALL HER TO SCHEDULE SOC PT REPORTS HE DAUGHTER WILL BE PICKING HER UP LATER TODAY WHEN SHE CAN GET AWAY FROM WORK
== END 2023-08-30 15:52 | disposition home health service (06) | DRG 690 ==
LOC: HO.ED 08-25 02:12 → HO.EDOVER 08-25 04:18 → HO.S3 08-25 08:09
PROVIDERS: Internal Medicine; Physician Assistant Medical; Admitting Provider Student in an Organized Health Care Education/Training Program; Emergency Provider Emergency Medicine; PCP Internal Medicine; Visit Provider Student in an Organized Health Care Education/Training Program
PROC: 0DJ08ZZ Inspection of Upper Intestinal Tract, Via Natural or Artificial Opening Endoscopic (ICD-10-PCS; CPT 43235; principal; 2023-08-29 10:20)
DX: N39.0 Urinary tract infection, site not specified (principal); D56.9 Thalassemia, unspecified; C50.911 Malignant neoplasm of unspecified site of right female breast; I10 Essential (primary) hypertension; E11.42 Type 2 diabetes mellitus with diabetic polyneuropathy; K31.7 Polyp of stomach and duodenum; R13.10 Dysphagia, unspecified; K44.9 Diaphragmatic hernia without obstruction or gangrene; E87.6 Hypokalemia; D63.8 Anemia in other chronic diseases classified elsewhere; E11.649 Type 2 diabetes mellitus with hypoglycemia without coma; Z17.1 Estrogen receptor negative status [ER-]; Z90.11 Acquired absence of right breast and nipple; Z20.822 Contact with and (suspected) exposure to COVID-19; Z79.899 Other long term (current) drug therapy
CPT/HCPCS: 0241U; 36415; 70491; 71045; 80048; 80053; 81001; 82550; 82947; 83036; 83605; 83735; 84484; 85025; 85027; 86850; 86900; 86901; 86923; 87040; 87086; 87651; 88305; 88312; 88313; 88342; 93005; 97116; 97162; 97530; 99285; J0696; J1650; J2704; J3475; J3480; P9016; P9047; Q9967

== ENCOUNTER → 2023-08-24 19:30 | Outpatient (BNV) | payer OTHER, SELFPAY | PROVIDERS: Admitting Provider Student in an Organized Health Care Education/Training Program; Emergency Provider Emergency Medicine; PCP Internal Medicine; Visit Provider Internal Medicine Cardiovascular Disease | DX: R94.31 Abnormal electrocardiogram [ECG] [EKG] (principal) | CPT/HCPCS: 93010 ==

== ENCOUNTER → 2023-08-25 04:14 | Outpatient (BNV) | payer OTHER, SELFPAY | PROVIDERS: Admitting Provider Student in an Organized Health Care Education/Training Program; Emergency Provider Emergency Medicine; PCP Internal Medicine; Visit Provider Student in an Organized Health Care Education/Training Program | DX: N39.0 Urinary tract infection, site not specified (principal); E11.649 Type 2 diabetes mellitus with hypoglycemia without coma; E87.6 Hypokalemia | CPT/HCPCS: 99223; 99232; 99239; 99499; G0180 ==

== ENCOUNTER 2023-09-11 09:41 | Outpatient (REF) | payer OTHER, SELFPAY ==
--- NOTE | ~2023-09-11 | FL_ITS ---
EXAMINATION: FL BARIUM SWALLOW CLINICAL INFORMATION: Patient states continued globus sensation with solid food; unable to pass solid food into esophagus, with eventual regurgitation. Patient had recent endoscopy 08/29/2023. Patient is currently working with a speech pathologist. COMPARISON: None available. TECHNIQUE: Barium swallow examination is performed using fluoroscopic evaluation in addition to multiple fluoroscopic spot views. The patient is imaged both upright and prone and using both thick barium sulfate. No granules were given. Fluoroscopy time: 1 minute 47 seconds DAP: 483.7 uGycm2 Images: 1 fluoroscopic spot image. 9 fluoroscopic cine runs. FINDINGS: Lateral cine fluoroscopic imaging was performed during thick barium ingestion. Patient initially used chin tuck maneuver for swallow. Initial swallow showed delayed swallow onset, repetitive tongue pumping, and early spillage into the hypopharynx with vallecular and piriform sinus pooling. Upon swallow, there was transient laryngeal penetration with thick barium on the first swallow. 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 This may be the causal factor of globus and laryngeal penetration. Second swallow demonstrated no definite penetration into the larynx, however extensive vallecular pooling and to a lesser degree piriform sinus pooling was present. Limited images of the esophagus demonstrated normal propagation distally and into the stomach. Subsequent 3rd swallow on thick barium demonstrated laryngeal penetration to the level of the laryngeal ventricle, with cough reflex initiated. Patient complained of globus sensation at this time, and extensive pooling of contrast was again noted within the vallecula and piriform sinuses, with mild posterior nasopharyngeal reflux present. Overall, the hypopharyngeal phase of swallow appeared weak, with persistent laryngeal penetration, and poor propagation of bolus through the UES into the esophagus. Persistent laryngeal penetration was identified without gross subglottic aspiration seen. Incidentally noted, degenerative changes throughout the cervical spine with small ventral disc osteophytes present, none which are felt to have clinically contributed to the patient's symptomatology. FL/FL barium swallow IMPRESSION: 1. Numerous episodes of laryngeal penetration of thick barium without subglottic aspiration. 2. 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 3. Overall suboptimal hypopharyngeal phase of swallow, likely related to weakened pharyngeal constrictor muscles with suboptimal contraction and bolus propulsion. 4. Extensive pooling of thick barium in the piriform sinuses and vallecula, during which the patient complained of a globus sensation. 6. Some tongue pumping and delayed swallow onset were also observed. 7. Given the above findings, modified barium swallow with speech pathology may be of benefit and is recommended.
== END 2023-09-11 09:42 | disposition home or self-care (01) ==
LOC: HO.XRAY 09:41
PROVIDERS: PCP Internal Medicine; Visit Provider Internal Medicine
DX: R13.10 Dysphagia, unspecified (principal)
CPT/HCPCS: 74220

== ENCOUNTER → 2023-09-11 09:43 | Outpatient (BNV) | payer OTHER, SELFPAY | PROVIDERS: PCP Internal Medicine; Visit Provider Radiology Diagnostic Radiology | DX: R09.A2 Foreign body sensation, throat (principal); R13.10 Dysphagia, unspecified | CPT/HCPCS: 74220 ==

== ENCOUNTER 2023-12-28 10:15 | Outpatient (REF) | payer OTHER, SELFPAY ==
--- NOTE | ~2023-12-28 | MM_ITS ---
EXAMINATION: MM SCREENING DIGITAL BREAST TOMOSYNTHESIS, LEFT CLINICAL INFORMATION: Screening. Asymptomatic. Status post right mastectomy. COMPARISON: Mammography: This study is compared with prior exams dating back to TECHNIQUE: Digital breast tomosynthesis is performed in both the craniocaudal and mediolateral oblique views along with computer-aided detection (CAD). Synthesized 2D images are generated from the tomosynthesis. FINDINGS: There are scattered areas of fibroglandular density (ACR BI-RADS breast composition Category b). Port in the left axilla obscures visualization. There are no significant masses, abnormal calcifications, or other abnormalities. MM/MM tomosynthesis screening LT IMPRESSION: No mammographic evidence of malignancy. ASSESSMENT: BI-RADS BI-RADS 2 - Benign Findings RECOMMENDATION: Routine annual mammography screening. 1 year F/U This examination should not preclude the clinical evaluation of a suspicious palpable abnormality. This patient's information was entered into a reminder system with a target due date for their next mammogram. Electronically signed by: Yasmine Enrique DO 01/08/2024 08:47 AM [facility]
== END 2023-12-28 10:16 | disposition home or self-care (01) ==
LOC: HO.MAMMO 10:15
PROVIDERS: PCP Internal Medicine; Visit Provider Internal Medicine
DX: Z12.31 Encounter for screening mammogram for malignant neoplasm of breast (principal)
CPT/HCPCS: 77063; 77067

== ENCOUNTER → 2023-12-28 10:15 | Outpatient (BNV) | payer OTHER, SELFPAY | PROVIDERS: PCP Internal Medicine; Visit Provider Internal Medicine | DX: Z12.31 Encounter for screening mammogram for malignant neoplasm of breast (principal) | CPT/HCPCS: 77063; 77067 ==

== ENCOUNTER 2024-02-15 11:09 | Outpatient (AMB) | payer OTHER, SELFPAY ==
--- NOTE | 2024-02-15 11:09 | A.OFFVIS_ITS ---
Vital Signs 3 02/15/24 11:12 Height 5 ft 8 in Weight 161 lb BMI 24.5 BP 220/100 H Blood Pressure Location Lt brachial Position Sitting Intake Visit Reasons: 6 m follow up visit, breast exa/post mastectomy Intake Note: Patient is seen in office for 6 months follow up visit, breast exam. Pt c/o: right shoulder pain for the past month, worse when lifting, denies any concerns regarding the breast mm:12/28/23 Bundler Required: No Thermostat Mechanic: Thermostat Mechanic Present Accompanied by: Family/Other Allergies metformin Allergy (Intermediate, Verified 02/15/24 11:09) Vomiting Medication List - Last Reconciled 02/18/24 by Monroe Magallanes MD albuterol sulfate 90 mcg/actuation 2 puffs inhalation Q6H PRN amlodipine (Norvasc) 10 mg PO DAILY cefuroxime axetil 250 mg PO BID fluticasone propionate 50 mcg/actuation 1 spray intranasal BID PRN gabapentin 300 mg PO BEDTIME PRN guaifenesin ER (Mucinex) 600 mg PO Q12H losartan 100 mg PO Q48H [Mag&Al/Sim/Diphenhyd/Lidocaine [Magic Mouthwash] 10 mL PO Q4H PRN] metoprolol succinate ER 50 mg PO DAILY nystatin 400,000 units (4 mL) buccal QID omeprazole 20 mg PO DAILY@0630 potassium chloride ER 10 mEq PO DAILY potassium chloride ER (K-Tab) 20 mEq PO DAILY@1200 prednisone 5 mg PO DIRECTED sennosides-docusate sodium 8.6-50 mg (Senna with Docusate Sodium) 1 tab-cap PO BEDTIME PRN HPI Comments Details: 83-year-old female patient with a history of hypertension, type 2 diabetes, beta thalassemia and a previous history of a large mass of the right breast at the upper inner quadrant. She has a family history of breast cancer including a sister who is a confirmed the disease. She is . CT of the chest revealed a suspicious appearing cystic mass corresponding to the palpable lesion. 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 He was referred to Dr. Christine and subsequently underwent neoadjuvant treatment followed by right modified radical mastectomy performed on 04/04/2023. Subsequent pathology revealed benign breast tissue with changes consistent with chemotherapy treatment, negative for residual carcinoma. Unremarkable appearing skin and nipple. Small intraductal papilloma. Eleven lymph nodes were negative for metastatic carcinoma (yp T0 ypN0, AJCC stage 8th addition, previously diagnosed grade 3 invasive ductal carcinoma, triple negative, [facility] diagnosis). She was evaluated by radiation therapy and subsequently declined further treatment. She continues to be followed by Dr. Christine. Today she reports mainly right posterior shoulder pain but denies any chest or breast tissues. Left mammogram performed on 12/28/2023 revealed no mammographic evidence of malignancy (BI-RADS 2). Routine follow-up mammogram of the left breast in 1 year is recommended. [facility] Medical History Dysphagia Peripheral neuropathy History of chemotherapy Hypokalemia Port-A-Cath in place Arthritis Elevated cholesterol Invasive ductal carcinoma of right breast Type 2 diabetes mellitus Hypertension Beta thalassemia Surgical History History of modified radical mastectomy of right breast (04/04/23) Hx of bilateral cataract extraction H/O colonoscopy History of delivery (1982) Family History Sister Breast cancer Social History Household Members: None Housing: Apartment Are you a primary pharmacist critical care to a significant other at home: No Do you presently have 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 or other home services: No Alcohol intake: never Comment: slight unsteadiness Patient Tobacco Use Status: Never used Tobacco Advance Directives Date on File: 09/01/22 service: No Current occupational status: retired Female Reproductive History Menstrual Age of Menarche: 17 Review of Systems Const All systems reviewed & are unremarkable except as noted in HPI and below Physical Exam Vital Signs: Last Vital Signs BP 220/100 H 02/15/24 11:12 BMI result Body Mass Index 24.5 Const General: comfortable Nutritional Appearance: well nourished Orientation/consciousness: patient oriented x3 Limitations: no limitations Chest Other: Left breast with no palpable mass, skin change, nipple discharge, or enlarged lymph nodes. Right chest: Well-healed mastectomy incision with no palpable mass, fluid collection or enlarged lymph nodes. Chest/axillae images: 2 1. Right modified radical mastectomy GI Inspection: Yes normal to inspection Skin Other: Warm, dry, no rash Neuro General: patient oriented x3 Extrem General: Yes no clubbing, cyanosis or edema Assessment & Plan Assessment & Plan (1) Triple negative malignant neoplasm of breast: Code(s): C50.919 - Malignant neoplasm of unspecified site of unspecified female breast Category: Surgical (2) Invasive ductal carcinoma of right breast: Comment: most recent chemotherapy 02/2023 Code(s): C50.911 - Malignant neoplasm of unspecified site of right female breast Category: Medical Plan Patient continues to improve following right mastectomy. Right chest wound is clean and intact with no evidence of recurrence. Left breast is normal as well. Patient will continue follow-up Medical Oncology and return in our office in approximately 6 months for follow-up examination. Follow-up mammogram in 12/22/2024 is recommended. Coding Level of Care Code Est Pt Level 3 (12952) Diagnoses Triple negative malignant neoplasm of breast C50.919 Invasive ductal carcinoma of right breast C50.911
[2024-02-15 11:12] VITALS: BP 220/100; BMI 24.5
== END 2024-02-15 11:31 | disposition home or self-care (01) ==
PROVIDERS: PCP Internal Medicine; Visit Provider Surgery
DX: C50.919 Malignant neoplasm of unspecified site of unspecified female breast (principal); C50.911 Malignant neoplasm of unspecified site of right female breast
CPT/HCPCS: 99213

== ENCOUNTER → 2024-02-15 11:09 | Outpatient (BNVA) | payer OTHER, SELFPAY | PROVIDERS: PCP Internal Medicine; Visit Provider Surgery | DX: C50.911 Malignant neoplasm of unspecified site of right female breast (principal); Z90.11 Acquired absence of right breast and nipple | CPT/HCPCS: 99212 ==

== ENCOUNTER 2024-05-01 11:35 | Outpatient (AMB) | payer MEDICARE, SELFPAY ==
--- NOTE | 2024-05-01 11:34 | HO.NEPHOV ---
Vital Signs 05/01/24 11:39 Height 5 ft 8 in Weight 163 lb BMI 24.8 BP 170/104 H Blood Pressure Location Lt brachial Position Sitting Intake Visit Reasons: Referral from for Bp-Conf Passenger Elevator Operator Required: No Accompanied by: Daughter Allergies metformin Allergy (Intermediate, Verified 05/01/24 11:38) Vomiting HPI Comments Details: I had the privilege of seeing Ms. Stovall in consultation for uncontrolled hypertension. She is known to have hypertension for well over 30 years. She has history of right breast invasive ductal cancer diagnosed in 2022 and undergone chemotherapy. Her serum potassium has been running on the low side needing replacements. She has good with low-sodium diet but has been taking losartan orally every other day. She is not on any diuretics. She also has been on metoprolol but had been taking amlodipine a while which has been put on hold. She denies headache, double vision, chest pain, shortness of breath, pedal edema, orthostatic symptoms, palpitation, diarrhea, excessive nonsteroidal anti-inflammatory medication intake, history of renal dysfunction. She is not known to have any proteinuria , retinopathy or LVH. She claims to be compliant with her medications. She does not have any headache, visual disturbances, weakness, CVA, CHF, carotid stenosis, PAD or PAULA. She was accompanied by her daughter during this office visit. [facility] Medical History (Updated 05/01/24 @ 13:21 by Basil Chance MD) Dysphagia Peripheral neuropathy History of chemotherapy Hypokalemia Port-A-Cath in place Arthritis Elevated cholesterol Invasive ductal carcinoma of right breast Type 2 diabetes mellitus Hypertension Beta thalassemia Surgical History History of modified radical mastectomy of right breast (04/04/23) Hx of bilateral cataract extraction H/O colonoscopy History of delivery (1982) Family History Sister Breast cancer Social History Household Members: None Housing: Apartment Are you a primary animal care giver to a significant other at home: No Do you presently have 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 or other home services: No Alcohol intake: never Comment: slight unsteadiness Patient Tobacco Use Status: Never used Tobacco Advance Directives Date on File: 09/01/22 service: No Current occupational status: retired Female Reproductive History Menstrual Age of Menarche: 17 Review of Systems Const All systems reviewed & are unremarkable except as noted in HPI and below Physical Exam Vital Signs: Last Vital Signs BP 170/104 H 05/01/24 11:39 BMI result Body Mass Index 24.8 Const General: comfortable and no acute distress Orientation/consciousness: patient oriented x3 HEENT Head: Yes normocephalic Mouth: Normal oral and palatal mucosa present Eyes EOM: EOMs intact bilaterally Neck Neck: Yes supple Resp Auscultation: clear to auscultation bilaterally Cardio Jugular venous distension: no JVD Rate: regular rate GI Palpation (GI): Soft to palpation Auscultation: normal bowel sounds General: Yes no CVA tenderness Back/Spine/Pelvis Back: no CVA tenderness Skin General skin exam: no rashes or lesions noted Neuro General: patient oriented x3 and moves all extremities Results Reviewed Nephrology Results: Hgb 12.7 g/dl (12.0-16.0) 04/22/24 WBC 5.2 X10*3/uL (4.8-10.8) 04/22/24 Plt Count 149 X10*3/uL (160-400) L 04/22/24 Sodium 142 mmol/L (135-145) 04/22/24 Potassium 3.0 mmol/L (3.3-5.1) L 04/22/24 Chloride 105 mmol/L (96-108) 04/22/24 Carbon Dioxide 28 mmol/L (22-29) 04/22/24 BUN 11 mg/dL (9-16) 04/22/24 Creatinine 0.58 mg/dL (0.5-1.4) 04/22/24 Calcium 9.8 mg/dL (8.4-10.2) 04/22/24 Urine Protein Trace mg/dL (Neg-Trace) 08/24/23 Assessment & Plan Assessment & Plan (1) Hypertension: Code(s): I10 - Essential (primary) hypertension Category: Medical Qualifiers: Hypertension type: primary hypertension Qualified Code(s): I10 - Essential (primary) hypertension (2) Hypokalemia: Comment: w/chemotherapy-had potassium infusion during chemotherapy Code(s): E87.6 - Hypokalemia Category: Medical Plan Kera has longstanding hypertension for many decades. She is currently not taking amlodipine and has been taking losartan only on every other day. Her serum potassium has been low and has been on potassium supplements. Her renal functions are normal. I ordered aldosterone, renin & cortisol . I asked her to take losartan 100 mg in the morning consistently every day and take her metoprolol in the afternoon. I discontinued her amlodipine and potassium replacement and started her on spironolactone 25 mg daily to be taken in the evening. She most likely needs higher dose of spironolactone. I shall consider doing a 24 hour ambulatory blood pressure monitor her blood pressure readings it continues to be labile. She should remain on a low-sodium diet and maintain good hydration. She has no history of LVH, retinopathy or proteinuria. She she will be seen in the office in follow-up in a few weeks for continued care. Answered all questions Orders: Orders Renin 2 Weeks E87.6 - Hypokalemia, I10 - Essential (primary) hypertension Blood Urea Nitrogen 2 Weeks E87.6 - Hypokalemia, I10 - Essential (primary) hypertension Electrolytes 2 Weeks E87.6 - Hypokalemia, I10 - Essential (primary) hypertension Aldosterone 2 Weeks E87.6 - Hypokalemia, I10 - Essential (primary) hypertension Aldost/Renin 2 Weeks E87.6 - Hypokalemia, I10 - Essential (primary) hypertension Cortisol Random 2 Weeks E87.6 - Hypokalemia, I10 - Essential (primary) hypertension Creatinine 2 Weeks E87.6 - Hypokalemia, I10 - Essential (primary) hypertension Medications: New spironolactone 25 mg PO DAILY 30 tabs 3RF Discontinued potassium chloride ER (K-Tab) Take 10mEq in the morning and 20 mEq in the evening = 30 mEq potassium chloride daily Discontinued Reason: Doctor's Order 20 mEq PO DAILY@1200 60 tabs 3RF amlodipine (Norvasc) Discontinued Reason: Doctor's Order 10 mg PO DAILY 90 tabs 3RF potassium chloride ER Take 10mEq in the morning and 20 mEq in the evening = 30 mEq potassium chloride daily Discontinued Reason: Doctor's Order 10 mEq PO DAILY 30 tabs 0RF Coding Level of Care Code New Pt Level 4 (76322) Diagnoses Primary hypertension I10 Hypertension type: primary hypertension Hypokalemia E87.6
[2024-05-01 11:39] VITALS: BP 170/104; BMI 24.8
--- OUTSIDE RECORDS SUMMARY | 2024-05-01 14:06 | XMS_ITS | Clinical Summary ---
Author Organization [facility] Address [address] [place] [address] Care Team Providers Care Isotope Technician Name Role Phone Unavailable Primary Care Provider Unavailabl e Allergies No known active allergies Medications valsartan (Diovan) 160 mg tablet two tablets po daily 12/11/2008 Active hydroCHLOROthia zide (HYDRODIURIL) 25 mg tablet 1 TABLET EVERY MORNING 12/11/2008 Active OneTouch Ultra Test test strip ONETOUCH ULTRA TEST STRP test blood glucose 2 times a day 01/01/2008 Active blood glucose control, normal solution ONETOUCH ULTRA CONTROL SOLN test blood glucose 2 times a day 01/01/2008 Active ONETOUCH ULTRASOFT LANCETS MISC test blood glucose 2 times a day 01/01/2008 Active metFORMIN (GLUCOPHAGE) 500 mg tablet 1 tablet po daily x two weeks and then increase to one tablet po bid 11/06/2008 Active simvastatin (ZOCOR) 20 mg tablet 1 TABLET AT BEDTIME 11/06/2008 Active Active Problems Problem Noted Date Diagnosed Date Type II diabetes mellitus 04/28/2024 Overview (04/28/2024): Diabetes mellitus type II, uncontrolled Hyperlipidemia with target LDL less than 100 06/2008 Overview (04/28/2024): IMO update Thickened nails 05/06/2008 Osteopenia 12/19/2007 Overview (04/28/2024): Bone density on 12/19/07 HTN (hypertension), malignant 11/15/2007 Osteoarthritis of knee 10/31/2007 Immunizations Name Administration Dates Next Due Influenza trivalent, with pr eservative (Fluzone; Afluria) 6mo and older 11/22/2007 Pneumococcal polysaccharide 23 valent (Pneumovax 23) 2yo and older 10/31/2007 Td Tetanus diptheria (Tdvax) 7yo and older 10/30 Surgical History Surgery Date Site/Laterality Comments SECTION PROCEDURE: HISTORICAL COLONOSCOPY 08/08 PROCEDURE: VA COLONOSCOPY STOMA DX INCLUDING COLLJ SPEC SPX; COMMENT: Dr. espinal Medical History Medical History Date Comments Osteopenia DX:Osteopenia Diabetes mellitus type II, uncontrolled DX:Diabetes mellitus type II, uncontrolled HTN (hypertension), benign DX:HT N (hypertension), benign Family History Medical History Relation Name Comments Cataracts Brother Breast cancer Sister Blindness Neg Hx Glaucoma Neg Hx Macular degeneration Neg Hx Strabismus Neg Hx Relation Name Status Comments Brother Father Mother htn Sister Social History Tobacco Use Types Packs/Day Years Used Date Smoking Tobacco: Never Alcohol Use Standard Drinks/Week Comments No 0 (1 standard drink = 0.6 oz pur e alcohol) Comments Unknown Sex and Gender Information Value Date Recorded Sex Assigned at Not on file Legal Sex Female 4:24 AM EST Gender Identity Not on file Sexual Orientation Not on file Obstetrics History Plan of Treatment Upcoming Encounters Date Type Department Care Team (Late st Contact Info) Description 08/13/2024 4:00 PM EDT Office Visit Adult Medicine [address] [phone] Irena Griffin MD [address] [place] [id number] Health Maintenance Due Date Last Done Comments Diabetes: Annual Foot Exam 09/01/1950 Diabetes: Annual Retina Eye Exam 09/01/1950 Zoster Vaccines (1 of 2) 09/01/1991 Pneumococcal Vaccine: 50+ Ye ars (2 of 2 - PCV) 10/30/2008 10/31/2007 Diabetes: Annual GFR (Glomer ular Filtration Rate) 07/17/2009 07/17/2008 RSV Immunization Patients 60 + Years Old (1 - 1-dose 75+ series) 2016 DTaP,Tdap,and Td Vaccines (2 - Td or Tdap) 10/30/2017 10/31/2007 Cholesterol Screening (Lipid Panel) 09/25/2023 11/06/2008 Depression Screening 09/25/2023 Diabetes: Annual Urine Albumin-Creatinine Ratio (uACR) 09/25/2023 07/20/2008 Diabetes: Blood Sugar Contro l Test (HGBA1C) 09/25/2023 07/17/2008 Falls Risk Assessment 09/25/2023 Hypertension/CHF/CAD Annual BMP Blood Test 09/25/2023 07/17/2008 Osteoporosis Screening (Bone Density Screening) 09/25/2023 Social Influencers of Health Screening 09/25/2023 COVID-19 Vaccine ( - 2023-2 5 season) 2023 Influenza Vaccine (#1) 2023 11/22/2007 HIB Vaccines Aged Out No longer eligi ble based on patient's age to complete this topic HPV Vaccines Aged Out No longer eligi ble based on patient's age to complete this topic Hepatitis A Vaccines Aged Out No long er eligible based on patient's age to complete this topic Hepatitis B Vaccines Aged Out No long er eligible based on patient's age to complete this topic IPV Vaccines Aged Out No longer eligi ble based on patient's age to complete this topic MMR Vaccines Aged Out No longer eligi ble based on patient's age to complete this topic Meningococcal ACWY Vaccine Aged Out N o longer eligible based on patient's age to complete this topic Meningococcal B Vacine Aged Out No lo nger eligible based on patient's age to complete this topic RSV Immunization Patients Un nina 20 months Aged Out No longer eligible b ased on patient's age to complete this topic Varicella Vaccines Aged Out No longer eligible based on patient's age to complete this topic Procedures Procedure Name Priority Date/Time Associated Diagnosis Comments LIPID PANEL Routine 11/06/2008 HM URINE ALBUMIN CREATININE RATIO Routine 07/20/2008 ANNUAL BMP BLOOD TEST Routine 07/17/2008 HEMOGLOBIN A1C Routine 07/17/2008 from Last 3 Months or Most Recently Relevant to Health Maintenance Results * (ABNORMAL) Lipid panel (11/06/2008) [facility] LDL/HDL Ratio 3 0 - 4 Triglycerides 64 0 - 150 mg/dL Cholesterol 229(A) 0 - 200 mg/dL HDL 78 >=40 mg/dL LDL Cholesterol 139(A) 0 - 100 mg/dL Blood Venous blood specimen / Unknown Result [facility] Provider LAB BLOOD ORDERABLES Karine l Result * Urine Albumin Creatinine Ratio (07/20/2008) Pathologist [facility] Urine Albumin Creatinine Ratio abstracted Result [facility] Provider HEALTH MAINTENANCE Final Result * Annual BMP Blood Test (07/17/2008) Pathologist [facility] Annual BMP Blood Test abstracted Result [facility] HEALTH MAINTENANCE Final Result * (ABNORMAL) Hemoglobin A1c (07/17/2008) [facility] Hemoglobin A1C 6.8(A) 4.0 - 6.0 % Blood Venous blood specimen / Unknown Result [facility] Provider LAB BLOOD ORDERABLES Karine l Result from Last 3 Months or Most Recently Relevant to Health Maintenance
--- OUTSIDE RECORDS SUMMARY | 2024-05-01 14:06 | XMS_ITS ---
Author Organization [facility] Address [address] [place] [phone] Care Team Providers Care Doctorate Of Chiropractic Name Role Phone Jordan STOCKTON, Roseline Primary Care Provider Og Severino [phone] REASON FOR VISIT index card? Encounters Encounter Location Date Provider Diagnosis [facility] [address] [place] [phone] 09/03/2023 Og Hook PLAN OF TREATMENT No Information
--- OUTSIDE RECORDS SUMMARY | 2024-05-01 14:06 | XMS_ITS | Patient Health Record ---
Author Organization [facility] Address [address] [place] [phone] Care Team Providers Care Senior Engineering Associate Name Role Phone Roseline Morocho MD Primary Care Provider Og Severino [phone] RESULTS Component Value Reference Range Notes CT soft tissue neck w con Reviewed date:08/27/2023 10:23:04 PM Interpretation: Performing Lab: Notes/Report: [facility] [address] [place] [address] [address] Scan Report Signed Patient: Kristy Stovall MR#: [id number] 08 : 1940 Acct:[id number] Age/Sex: 82 / F ADM Date: 08/25/23 Loc: HO.S3 363-[address]: Marcelo Arenas MD Ordering Physician: Og Hook MD Date of Service: 08/27/23 Procedure(s): CT soft tissue neck w IV con Accession Number(s): [id number] cc: ROSELINE MOROCHO MD; Og Hook MD EXAMINATION: CT SOFT TISSUE NECK WITH CONTRAST CLINICAL INFORMATION: Left-sided neck pain. COMPARISON: CT head and cervical spine 06/18/2023. TECHNIQUE: Following the intravenous administration of 60 mL of Omnipaque 350 intravenous contrast, helical imaging was performed in the axial plane with generation of coronal and sagittal reformatted images. This CT examination was performed using dose optimization techniques as appropriate, variously including the following: *Automated exposure control *Adjustment of mA and/or kV according to patient size (this includes techniques or standardized protocols for targeted exams where dose is matched to indication/reason for exam; i.e. extremities or head) *Use of iterative reconstruction technique DLP: 920 mGy-cm FINDINGS: There is no discrete hematoma or drainable fluid collection at the site of the Port-A-Cath implantation in the left supraclavicular location. There are no pathologically enlarged cervical lymph nodes. No mediastinal or axillary adenopathy is visualized within the qsqrx-xg-yarh of this examination. Pharyngeal mucosal spaces are symmetric. Parapharyngeal and retromaxillary fat is preserved. Marketing Community Liaison spaces are symmetric. The parotid and submandibular glands are normal. The tongue base and epiglottis are normal. Preepiglottic fat is preserved. Glottic and subglottic airways are patent. There is a prominent pyramidal lobe of the thyroid gland. Remainder the visualized visceral soft tissues are normal. Lung apices are clear. Aortic arch apex is normal. Partially calcified atheromatous plaque involves both carotid bifurcations. Cervical carotid and vertebral arteries are otherwise grossly patent. Internal jugular veins fill symmetrically. There is no acute osseous finding. Specifically no worrisome lytic or blastic osseous lesion. There is multilevel degenerative spondylosis of the cervical spine with at least moderate canal stenosis at C4-C5 and C5-C6. The skull base is grossly intact. No mastoid or middle ear effusion. Limited visualization of intracranial anatomy reveals no abnormal finding. CT/CT soft tissue neck w IV con IMPRESSION: There is multilevel degenerative spondylosis of the cervical spine with at least moderate canal stenosis at C4-C5 and C5-C6. If there are clinical symptoms of compressive myelopathy then a dedicated cervical spine MRI can be obtained for better anatomic characterization of the cord and canal. There is no discrete anatomic finding to provide a definitive explanation for this patient's left-sided neck pain in that there is no identifiable hematoma or discrete drainable fluid collection at the site of the Port-A-Cath implantation. Dictated By: Og Burch MD Signed By: <Electronically signed by Og Burch MD in OV> 08/27/23 1511 DD/ 0930 TD/TT: Elevator Technician: ANDRES Pathology Reviewed date:09/15/2023 05:29:31 PM Interpretation: Performing Lab:[facility], [address] [place] [phone] Notes/Report: Complete Blood Count Auto Di ff Reviewed date:08/30/2023 12:39:16 PM Interpretation: Performing Lab:[facility], [address] [place] [phone] Notes/Report: Missed x2 BEECHEC White Blood Count 9.6 4.8-10.8 X10*3/uL Red Blood Count 3.79 4.20-5.50 X10*6/uL Hemoglobin 9.2 12.0-16.0 g/dl Hematocrit 29.3 37.0-47.0 % Mean Corpuscular Volume 77.3 80.0-98.0 fL Mean Corpuscular Hemoglobin 24.3 27.0-33.0 pg Mean Corpuscular HGB Conc 31.4 31.0-35.0 g/dl Red Cell Distribution Width 18.8 11.0-16.0 % Platelet Count 274 160-400 X10*3/uL Mean Platelet Volume 8.8 9.4-12.3 fL Neutrophils Percent Auto 74.1 45-73 % Imm Gran Pct Auto 0.4 0.0-0.4 % Lymphocytes Percent Auto 11.5 20-40 % Monocytes Percent Auto 12.2 2-11 % Eosinophils Percent Auto 1.4 0-4 % Basophils Percent Auto 0.4 0-2 % NRBC Pct Auto 0.0 0.0-0.2 /100WBC Neutrophils Absolute Auto 7.1 2.0-8.3 x10*3/u L Imm Gran Abs Auto 0.04 0.00-0.03 X10*3/uL Lymphocytes Absolute Auto 1.1 1.2-4.9 X10*3/u L Monocytes Absolute Auto 1.2 0.1-1.2 X10*3/uL Eosinophils Absolute Auto 0.1 0.0-0.4 X10*3/u L Basophils Absolute Auto 0.0 0.0-0.2 X10*3/uL NRBC Abs Auto 0.000 0.0-0.012 X10*3/uL REASON FOR REFERRAL No Information SOCIAL HISTORY Sex Assigned At : Social History Observation Description Sex Assigned At Unknown PROBLEMS Problem Type ICD Code Onset Dates Problem Status W/U Status Risk SNOMED Code Notes Problem Gastric polyps (K31.7) Active confirmed Benign neoplasm of stomach (12343590) Problem Odynophagia (R13.10) Active confirmed Odynophagia (57379793) Encounters Encounter Location Date Provider Diagnosis [facility] Inpatient [address] [place] [phone] 08/29/2023 Og [facility] [address] [place] [address] 09/03/2023 Og Hook PLAN OF TREATMENT No Information Insurance Providers Payer Name Payer Address Payer Phone Subscriber Number Group Number Insured Name Patient Relationship to Insured Coverage Start Date Coverage End Date [facility] [address] [address] [place] [address] [phone] [id number] KRISTY PAREKH Self - patient is the insured
--- OUTSIDE RECORDS SUMMARY | 2024-05-01 14:06 | XMS_ITS ---
Author Organization [facility] Address [address] [place] [address] Care Team Providers Care Buckle Sewer Name Role Phone Jordan STOCKTON, Roseline Primary Care Provider Og Severino [phone] REASON FOR VISIT painful swallowing Encounters Encounter Location Date Provider Diagnosis [facility] [place] [address] [place], [place] [phone] 08/29/2023 Og Hook PLAN OF TREATMENT No Information
== END 2024-05-01 12:15 | disposition home or self-care (01) ==
PROVIDERS: PCP Internal Medicine; Visit Provider Internal Medicine Nephrology
DX: I10 Essential (primary) hypertension (principal); E87.6 Hypokalemia
CPT/HCPCS: 99204

== ENCOUNTER → 2024-05-01 11:35 | Outpatient (BNVA) | payer MEDICARE, SELFPAY | PROVIDERS: PCP Internal Medicine; Visit Provider Internal Medicine Nephrology | DX: I10 Essential (primary) hypertension (principal); E87.6 Hypokalemia | CPT/HCPCS: 99202 ==

== ENCOUNTER 2024-05-22 11:23 | Outpatient (AMB) | payer MEDICARE, SELFPAY ==
--- NOTE | 2024-05-22 11:29 | HO.NEPHOV_ITS ---
Vital Signs 05/22/24 11:31 Height 5 ft 8 in Weight 167 lb 8 oz BMI 25.5 BP 140/80 H Blood Pressure Location Lt brachial Position Sitting Pulse 71 Pulse Source Pulse Oximeter Pulse Oximetry (%) 98 Oxygen Delivery Method Room Air Intake Visit Reasons: 3wk follow-up w/labs-Conf Boilermaker Assembly And Erection Required: No Accompanied by: Daughter Allergies metformin Allergy (Intermediate, Verified 05/22/24 11:31) Vomiting HPI Comments Details: I had the privilege of seeing Ms. Stovall in follow up for uncontrolled hypertension. She is known to have hypertension for well over 30 years. She has history of right breast invasive ductal cancer diagnosed in 2022 and undergone chemotherapy. Her serum potassium has been running on the low side needing replacements. She has good with low-sodium diet but has been taking losartan orally every other day. She is not on any diuretics. She also has been on metoprolol but had been taking amlodipine a while which has been put on hold. She denies headache, double vision, chest pain, shortness of breath, pedal edema, orthostatic symptoms, palpitation, diarrhea, excessive nonsteroidal anti-inflammatory medication intake, history of renal dysfunction. She is not known to have any proteinuria , retinopathy or LVH. She claims to be compliant with her medications. She does not have any headache, visual disturbances, weakness, CVA, CHF, carotid stenosis, PAD or PAULA. She was accompanied by her daughter during this office visit. [facility] Medical History (Updated 05/22/24 @ 11:51 by Basil Chance MD) Dysphagia Peripheral neuropathy History of chemotherapy Hypokalemia Port-A-Cath in place Arthritis Elevated cholesterol Invasive ductal carcinoma of right breast Type 2 diabetes mellitus Hypertension Beta thalassemia Surgical History History of modified radical mastectomy of right breast (04/04/23) Hx of bilateral cataract extraction H/O colonoscopy History of delivery (1982) Family History Sister Breast cancer Social History Household Members: None Housing: Apartment Are you a primary intensive care anaesthetist to a significant other at home: No Do you presently have 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 or other home services: No Alcohol intake: never Comment: slight unsteadiness Patient Tobacco Use Status: Never used Tobacco Advance Directives Date on File: 09/01/22 service: No Current occupational status: retired Female Reproductive History Menstrual Age of Menarche: 17 Review of Systems Const All systems reviewed & are unremarkable except as noted in HPI and below Physical Exam Vital Signs: Last Vital Signs Pulse 71 05/22/24 11:31 BP 140/80 H 05/22/24 11:31 Pulse Ox 98 05/22/24 11:31 Oxygen Delivery Method Room Air 05/22/24 11:31 BMI result Body Mass Index 25.5 Const General: comfortable and no acute distress Orientation/consciousness: patient oriented x3 HEENT Head: Yes normocephalic Mouth: Normal oral and palatal mucosa present Eyes EOM: EOMs intact bilaterally Neck Neck: Yes supple Resp Auscultation: clear to auscultation bilaterally Cardio Jugular venous distension: no JVD Rate: regular rate GI Palpation (GI): Soft to palpation Auscultation: normal bowel sounds General: Yes no CVA tenderness Back/Spine/Pelvis Back: no CVA tenderness Skin General skin exam: no rashes or lesions noted Neuro General: patient oriented x3 and moves all extremities Extrem General: Yes no pedal edema Results Reviewed Nephrology Results: Hgb 12.7 g/dl (12.0-16.0) 04/22/24 WBC 5.2 X10*3/uL (4.8-10.8) 04/22/24 Plt Count 149 X10*3/uL (160-400) L 04/22/24 Sodium 142 mmol/L (135-145) 04/22/24 Potassium 3.0 mmol/L (3.3-5.1) L 04/22/24 Chloride 105 mmol/L (96-108) 04/22/24 Carbon Dioxide 28 mmol/L (22-29) 04/22/24 BUN 11 mg/dL (9-16) 04/22/24 Creatinine 0.58 mg/dL (0.5-1.4) 04/22/24 Calcium 9.8 mg/dL (8.4-10.2) 04/22/24 Urine Protein Trace mg/dL (Neg-Trace) 08/24/23 Assessment & Plan Assessment & Plan (1) Hypokalemia: Code(s): E87.6 - Hypokalemia Category: Medical (2) Hypertension: Code(s): I10 - Essential (primary) hypertension Category: Medical Qualifiers: Hypertension type: primary hypertension Qualified Code(s): I10 - Essential (primary) hypertension Plan Kera has longstanding hypertension for many decades. Her renal functions are normal. I ordered aldosterone, renin & cortisol as well as repeat K . I asked her to take losartan 100 mg in the morning consistently every day and take her metoprolol in the afternoon. At the last visit , I discontinued her amlodipine and potassium replacement and started her on spironolactone 25 mg daily to be taken in the evening, which I plan to increase it to 50 mg at next visit after revieweing labs. She most likely needs higher dose of spironolactone. I shall consider doing a 24 hour ambulatory blood pressure monitor her blood pressure readings it continues to be labile. She should remain on a low-sodium diet and maintain good hydration. She has no history of LVH, retinopathy or proteinuria. She she will be seen in the office in follow-up in a few weeks for continued care. Answered all questions Coding Level of Care Code Est Pt Level 4 (19564) Diagnoses Hypokalemia E87.6 Primary hypertension I10 Hypertension type: primary hypertension
[2024-05-22 11:31] VITALS: BP 140/80; PULSE 71; O2SAT 98; BMI 25.5
--- OUTSIDE RECORDS SUMMARY | 2024-05-22 13:38 | XMS_ITS ---
Author Organization [facility] Address [address] [place] [address] Care Team Providers Care Specimen Accessioner Name Role Phone Jordan STOCKTON, Roseline Primary Care Provider Og Severino [phone] REASON FOR VISIT painful swallowing Encounters Encounter Location Date Provider Diagnosis [facility] Inpatient [address] [place], [place] [phone] 08/29/2023 Og Hook Plan Of Treatment No Information Progress Notes * JB STOLLADOB: 2 (83 yo F)Acc No.[id number]:08/29/2023 EGD/MAC Patient:?KRISTY STOLL Provider:?Og Hook MD :1940???Age:82 Y???Sex:Female D ate:08/29/2023 Address:[address] [place], [place] [phone] Pcp:Roseline Ortega MD Subjective: * Chief Complaints: * ???1. Painful swallowing. * Medical History:? Objective: * Vitals:? Assessment: Plan: * Treatment: * * The named appointment provid er may or may not be the originator of this progress note, and it is not deemed complete until electronically signed by the appointment provider. Sign off status: Pending * Provider:?Og Hook MD Date:? 024 Generated for Dang barclay/Shirley/eTransmitting on:?05/22/2024 01:38 PM EDT
--- OUTSIDE RECORDS SUMMARY | 2024-05-22 13:39 | XMS_ITS ---
Author Organization [facility] Address [address] [place] [address] Care Team Providers Care Photovoltaic Testing Technician Name Role Phone Jordan STOCKTON, Roseline Primary Care Provider Og Severino [phone] REASON FOR VISIT index card? Encounters Encounter Location Date Provider Diagnosis [facility] [address] [place] [address] 09/03/2023 Og Hook Plan Of Treatment No Information Progress Notes * STOLLTORIEB: 2 (83 yo F)Acc No.[id number]:09/03/2023 Patient:?JB STOLLA :1940???Age:83 Y???Sex:Female Address:[address] [place] [address] A, [place], [address] * true * Date:? Generated for Dang barclay/Shirley/eTransmitting on:?05/22/2024 01:38 PM EDT
--- OUTSIDE RECORDS SUMMARY | 2024-05-22 13:39 | XMS_ITS | Patient Health Record ---
Author Organization [facility] Address [address] [place] [address] Care Team Providers Care Training Assistant Name Role Phone Roseline Morocho MD Primary Care Provider Og Severino [phone] Results Component Value Reference Range Notes CT soft tissue neck w con Reviewed date:08/27/2023 10:23:04 PM Interpretation: Performing Lab: Notes/Report: [facility] [address] [place] [address] [address] Scan Report Signed Patient: Kristy Stovall MR#: [id number] 08 : 1940 Acct:[id number] Age/Sex: 82 / F ADM Date: 08/25/23 Loc: HO.S3 363-[address]: Marcelo Arenas MD Ordering Physician: Og Hook MD Date of Service: 08/27/23 Procedure(s): CT soft tissue neck w IV con Accession Number(s): [id number] cc: ROSELINE MOROCHO MD; Og Hook MD [...] or axillary adenopathy is visualized within the tlziz-za-vkhg of this examination. Pharyngeal mucosal spaces are symmetric. Parapharyngeal and retromaxillary fat is preserved. Hebrew Cantor spaces are symmetric. The parotid and submandibular [...] in OV> 08/27/23 1511 DD/ 0930 TD/TT: Medical Education Manager: [address] [address] [address] Scan Report Signed Patient: Kristy Stovall MR#: [id number] 08 : 1940 Acct:[id number] Age/Sex: 82 / F ADM Date: 08/25/23 Loc: .S3 363-[address]: Marcelo Arenas MD Ordering Physician: Og Hook MD Date of Service: 08/27/23 Procedure(s): CT sof t tissue neck w IV con Accession Number(s): [id number] cc: ROSELINE MOROCHO MD ; Og Hook MD EXAMINATION: CT SOFT TISSUE NECK WITH CONTRAST CLINICAL INFORMATION: Left-sided neck pain. COMPARISON: CT head and cervical spine 06/18/2023. TECHNIQUE: Following the intrav enous administration of 60 mL of Omnipaque 350 intravenous contrast , helical imaging was performed in the axial plane with generation of c oronal and sagittal reformatted images. This CT examination was performed using dose optimization techniques as appropriate, various ly including the following: *Automated exposure control *Adjustment of mA an d/or kV according to patient size (this includes techniques or standa rdized protocols for targeted exams where dose is matched to indicatio n/reason for exam; i.e. extremities or head) *Use of iterative reconstruction technique DLP: 920 mGy-cm FINDINGS: There is no discrete hematoma or drainable fluid collection at the site of the Port-A-Cath implantation in the left supraclavicular location. There are no patholo gically enlarged cervical lymph nodes. No mediastinal or axill sarai adenopathy is visualized within the lftmi-lv-sfoy of thi s examination. Pharyngeal mucosal s paces are symmetric. Parapharyngeal and retromaxillary fat i s preserved. Hebrew Cantor spaces are symmetric. The parotid and submandi bular glands are normal. The tongue base and epiglottis are sergey l. Preepiglottic fat is preserved. Glottic and subglottic airways a re patent. There is a prominent pyramidal lobe of the thyroid gland. R emainder the visualized visceral soft tissues are normal. Lung apices are clare r. Aortic arch apex is normal. Partially calcified atheromatous plaque involves both carotid bifurcations. Cervical carotid and vertebra l arteries are otherwise grossly patent. Internal jugular veins fill symmetrically. There is no acute osseous finding. Specifically no worr isome lytic or blastic osseous lesion. There is multilevel degenerat charbel spondylosis of the cervical spine with at least moderate canal steno sis at C4-C5 and C5-C6. The skull base is grossly intact. No mastoid o r middle ear effusion. Limited visualization of intracranial anatomy reveals no abnormal finding. C T/CT soft tissue neck w IV con IMPRESSION: There is multilevel degenerative spondylosis of the cervical spine with at least moderate ca nal stenosis at C4-C5 and C5-C6. If there are clinical symptoms of compressive myelopathy then a dedicated cervical spine MRI can be obt ained for better anatomic characterization of the cord and canal. There is no discrete anatomic finding to provide a definitive explanation for this patient's left-sided neck pain in that there is no identifiable hematom a or discrete drainable fluid collection at the site of the Port-A-C ath implantation. Dictated By: Og Burch MD Signed By: <Carmencita whiteside signed by Og Burch MD in OV> 08/27/23 1511 DD/ 0930 TD/TT: Medical Education Manager: Pathology Reviewed date:09/15/2023 05:29:31 PM Interpretation: Performing Lab:[facility], [address] [place] [phone] Notes/Report: -- Name: Kristy Stovall Age/Sex: 82/F : 1940 Unit#: [id number] Attend Dr: Karina Luu MD Re08/25/23 Status : DIS [facility] Disch: 08/30/23 -- SPEC : [id number] RECD : 06/ STATUS: EASTON GUTIERREZ NUM: [id number] CARLOS: 08/29/23-110[address] [facility] DR: Og Hook MD ENTERED: 08/29/23-11 48 SP TYPE: Surgical OTHR DR: Karina Luu MD,ROSELINE Frey MD ORDERED: HE Stain/3, Gross Micro L4/2, IHC, Specials Gr. 1, Special st. 2, H. pylori, PASF, AB/PAS Diagnosis A. Gastric antral po lyps: Hyperplastic polyps with marked chronic active inflammation and reactive changes ; negative for H pylori, intestinal metaplasia and dysplasia. B. Esophagus, random , biopsy: Squamous mucosa with significant lymphocytic infiltrate with focal interface vacuolar degeneration, rare intraepithelial neutrophils and eosinophils (up to 1 per high-power field), and occasional necrotic keratinocytes and Civatte bodies; nega tive for dysplasia; no fungi seen; no columnar mucosa present (see comment). Comment: (B): Appearances sug gest a lymphocytic or lichenoid esophagitis and endoscopic correlation is necessary. Clinical History Pre-Op Dx: Painful swallowing Post-Op Dx: Gastric polyps, hiatal hernia Microscopic Description Microscopic sections reviewed. Immunostain for H. pylori on A is negative. AB/PAS on A is negative for intesti nal metaplasia. PAS-F on B is negative for fungi. Controls stain appropriately. Material Received A. Gastric antral polyps B. Random esophagus bx's, r/o infectious esophagitis Gross Description Received in two parts. Part A: Received in formalin labeled ?gastric antral polyps? are 3 vieira-pink irregular tissue fragments eac h measuring 0.2 cm, submitted in toto in a cassette labeled A. Part B: Received in formalin labeled ?random esophagus bx's? are 4 pale, chung-white irregular and rectan gular tissue fragments ranging from 0.25-0.35 cm, submitted in toto in a cassette labeled B. CONTINUED ON NEXT PAGE -- Name: Kristy Stovall Age/Sex: 82/F : 1940 Unit#: [id number] Attend Dr: Karina Luu MD Re08/25/23 Status : DIS IN Location: [facility] 363-1 Disch: 08/30/23 -- SPEC : [id number] RECD : 08/29/23 STATUS: EASTON GUTIERREZ NUM: [id number] CARLOS: 08/29/23-110[address] [facility] DR: Og Hook MD ENTERED: 08/29/23- 48 SP TYPE: Surgical OTHR DR: Karina Luu MD, SMITHA S MD ORDERED: HE Stain/3, Gross Micro L4/2, IHC, Specials Gr. 1, Special st. 2, H. pylori, PASF, AB/PAS Gross Description (Continued) CEDS Special studies orde red and performed: Immunostain for H. pylori on A1; AB/PAS stains on A1; PAS-F on B1. Copies To: Karina Luu MD [address] [place] [address] ROSELINE MOROCHO MD [address] [place] [address] Og Hook MD [facility] [address] [place] [address] -- Signed (si gnature on file) Erin Gema 08/30/23 1617 -- END OF REPORT Complete Blood Count Auto Di ff Reviewed date:08/30/2023 12:39:16 PM Interpretation: Performing Lab:[facility], [address] [place] [phone] Notes/Report: Missed x2 BEECHEC White Blood Count [...] X10*3/uL NRBC Abs Auto 0.000 0.0-0.012 X10*3/uL Reason For Referral No Information Problems Problem Type SNOMED Code ICD Code Onset Dates Problem Status W/U Status Risk Notes Problem Benign neoplasm of stomach (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) Gastric polyps (K31.7) Active confirmed Problem Odynophagia (40397663) Odynophagia (R13.10) Active confirmed Encounters Encounter Location Date Provider Diagnosis [facility] [place] [address] [place], [place] [phone] 08/29/2023 Og Hook [facility] [address] [facility] [address] [place] [address] 09/03/2023 Og Hook Plan Of Treatment No Information Insurance Providers Payer Name Payer Address Payer Phone Subscriber Number Group Number Insured Name Patient Relationship to Insured Coverage Start Date Coverage End Date [facility] [address] [address] [place] [address] [phone] [id number] KRISTY PAREKH Self - patient is the insured
== END 2024-05-22 11:58 | disposition home or self-care (01) ==
LOC: HO.HKAS 11:23
PROVIDERS: PCP Internal Medicine; Visit Provider Internal Medicine Nephrology
DX: E87.6 Hypokalemia (principal); I10 Essential (primary) hypertension
CPT/HCPCS: 99214

== ENCOUNTER → 2024-05-22 11:23 | Outpatient (BNVA) | payer MEDICARE, SELFPAY | PROVIDERS: PCP Internal Medicine; Visit Provider Internal Medicine Nephrology | DX: I10 Essential (primary) hypertension (principal); E87.6 Hypokalemia | CPT/HCPCS: 99212 ==

== ENCOUNTER 2024-06-07 10:00 | Outpatient (REF) | payer MEDICARE, SELFPAY ==
--- OUTSIDE RECORDS SUMMARY | 2024-06-07 10:02 | XMS_ITS ---
Author Organization [facility] Address [address] [place] [address] Care Team Providers Care Gate Supervisor Name Role Phone Jordan STOCKTON, Roseline Primary Care Provider Og Severino [phone] REASON FOR VISIT index card? Encounters Encounter Location Date Provider Diagnosis [facility] [address] [place] [phone] 09/03/2023 Og Hook Plan Of Treatment No Information Progress Notes * STOLLTORIEB: 2 (83 yo F)Acc No.[id number]:09/03/2023 Patient:?JB STOLLA :1940???Age:83 Y???Sex:Female Address:[address] [place] [address] A, [place], [address] * true * Date:? Generated for Dang barclay/Shirley/eTransmitting on:?06/07/2024 10:02 AM EDT
--- OUTSIDE RECORDS SUMMARY | 2024-06-07 10:02 | XMS_ITS | Patient Health Record ---
Author Organization [place] [facility] Address [address] [place] [address] Care Team Providers Care Armor Senior Sergeant Name Role Phone Roseline Morocho MD Primary Care Provider Og Severino [phone] Results Component Value Reference Range Notes CT soft tissue neck w con Reviewed date:08/27/2023 10:23:04 PM Interpretation: Performing Lab: Notes/Report: [facility] [address] [place] [address] Scan Report Signed Patient: Kristy Stovall MR#: [id number] [birth year] : 1940 Acct:[id number] Age/Sex: 82 / F ADM Date: 08/25/23 Loc: HO.S3 363-[address]: Marcelo Arenas MD Ordering Physician: Og Hook MD Date of Service: 08/27/23 Procedure(s): CT soft tissue neck w IV con Accession Number(s): [id number] cc: ROSELINE MOROCHO MD; Og Hook MD [...] or axillary adenopathy is visualized within the prccv-fo-xnvi of this examination. Pharyngeal mucosal spaces are symmetric. Parapharyngeal and retromaxillary fat is preserved. Special Effects Technician spaces are symmetric. The parotid and submandibular [...] in OV> 08/27/23 1511 DD/ 0930 TD/TT: Generation Technologist: [address] [address] [address] Scan Report Signed Patient: Kristy Stovall MR#: [id number] 08 : 1940 Acct:[id number] Age/Sex: 82 / F ADM Date: 08/25/23 Loc: .S3 363-[address]: Marcelo Arenas MD Ordering Physician: Og Hook MD Date of Service: 08/27/23 Procedure(s): CT sof t tissue neck w IV con Accession Number(s): [id number] cc: ROSELINE MOROCHO MD ; Og Hook [...] axill sarai adenopathy is visualized within the nsyth-ak-ksai of thi s examination. Pharyngeal mucosal s paces are symmetric. Parapharyngeal and retromaxillary fat i s preserved. Special Effects Technician spaces are symmetric. The parotid and submandi [...] in OV> 08/27/23 1511 DD/ 0930 TD/TT: Generation Technologist: Pathology Reviewed date:09/15/2023 05:29:31 PM Interpretation: Performing Lab:[facility], [address] [place] [address] Notes/Report: -- Name: Kristy Stovall Age/Sex: 82/F : 1940 Unit#: [id number] Attend Dr: Karina Luu MD Re08/25/23 Status : DIS IN [facility] 363-1 Disch: 08/30/23 -- SPEC : [id number] RECD : 06/ STATUS: EASTON GUTIERREZ NUM: [id number] CARLOS: 08/29/23-[address] [facility] [address]: Og Hook MD ENTERED: 08/29/23-11 [...] Kristy Stovall Age/Sex: 82/F : 1940 Unit#: [id number] Attend Dr: Karina Luu MD Re08/25/23 Status : DIS IN Location: [facility] 363-1 Disch: 08/30/23 -- SPEC : [id number] RECD : 08/29/23 STATUS: EASTON GUTIERREZ NUM: [id number] CARLOS: 08/29/23-[address] [facility] [address]: Og Hook MD ENTERED: 08/29/23- [...] on B1. Copies To: Karina Luu MD [address] [place] [address] ROSELINE MOROCHO MD [address] [place] [address] Og Hook MD [facility] [address] [place] [address] -- Signed (si gnature on file) Erin Gema 08/30/23 1617 -- END OF REPORT Complete Blood Count Auto Di ff Reviewed date:08/30/2023 12:39:16 PM Interpretation: Performing Lab:[facility], [address] [place] [address] Notes/Report: Missed x2 [facility] White Blood Count [...] Risk Notes Problem Benign neoplasm of stomach (77241457) Gastric polyps (K31.7) Active confirmed Problem Odynophagia (79376744) Odynophagia (R13.10) Active confirmed Encounters Encounter Location Date Provider Diagnosis [facility] [place] [address] [place], [place] [phone] 08/29/2023 Og Hook [facility] [address] [facility] [address] [place] [address] 09/03/2023 Og Hook Plan Of Treatment No Information Insurance Providers Payer Name Payer Address Payer Phone Subscriber Number Group Number Insured Name Patient Relationship to Insured Coverage Start Date Coverage End Date [facility] [address] [address] [place] [address] [id number] KRISTY PAREKH Self - patient is the insured
--- OUTSIDE RECORDS SUMMARY | 2024-06-07 10:02 | XMS_ITS ---
Author Organization [facility] Address [address] [place] [address] Care Team Providers Care Paramedical Aide Name Role Phone Jordan [place], Roseline Primary Care Provider Og Severino [phone] REASON FOR VISIT painful swallowing Encounters Encounter Location Date Provider Diagnosis [facility] Inpatient [address] [place], [place] [phone] 08/29/2023 Og Hook Plan Of Treatment No Information Progress Notes * JB STOLLADOB: 2 (83 yo F)Acc No.[id number]:08/29/2023 EGD/MAC Patient:?KRISTY STOLL Provider:?Og Hook MD :1940???Age:82 Y???Sex:Female D ate:08/29/2023 Address:[address] [place], [place] [phone] Pcp:Roseline Ortega MD Subjective: * Chief Complaints: [...] Hook MD Date:? 024 Generated for Dang barclay/Shirley/eTadairsmitting on:?06/07/2024 10:02 AM EDT
[2024-06-07 11:47] LABS: Anion Gap 14 (12-20); Blood Urea Nitrogen 18 mg/dL (9-16); Carbon Dioxide 26 mmol/L (22-29); Chloride 106 mmol/L (96-108); Estimated Glomerular Filt Rate > 60; Potassium 4.2 mmol/L (3.3-5.1); Sodium 142 mmol/L (135-145)
[2024-06-07 12:07] LABS: Cortisol Random 9.6 ug/dL
[2024-06-13 15:38] LABS: Aldosterone/Renin Ratio 257.1 Ratio (0.9-28.9); Plasma Renin Activity 0.07 ng/mL/h (0.25-5.82)
== END 2024-06-07 10:01 | disposition home or self-care (01) ==
LOC: HO.LAB 10:00
PROVIDERS: Visit Provider Internal Medicine Nephrology
DX: I10 Essential (primary) hypertension (principal); E87.6 Hypokalemia
CPT/HCPCS: 36415; 80051; 82088; 82533; 82565; 84244; 84520

== ENCOUNTER 2024-06-26 11:00 | Outpatient (AMB) | payer MEDICARE, SELFPAY ==
--- NOTE | 2024-06-26 11:10 | HO.NEPHOV ---
Vital Signs 06/26/24 11:11 Height 5 ft 8 in Weight 168 lb BMI 25.5 BP 166/100 H Blood Pressure Location Lt brachial Position Sitting Pulse 79 Pulse Source Pulse Oximeter Pulse Oximetry (%) 99 Oxygen Delivery Method Room Air Intake Visit Reasons: 1mon follow-up w/labs-[facility] [place] Tender Required: No Accompanied by: Daughter Allergies metformin Allergy (Intermediate, Verified 06/26/24 11:11) Vomiting HPI Comments Details: I had the privilege of seeing Ms. Stovall in follow up for hypertension. She is known to have hypertension for well over 30 years. She has history of right breast invasive ductal cancer diagnosed in 2022 and undergone chemotherapy. Her serum potassium has been running on the low side needing replacements. She has good with low-sodium diet but has been taking losartan orally every other day. She is not on any diuretics. She also has been on metoprolol but had been taking amlodipine a while which has been put on hold. She denies headache, double vision, chest pain, shortness of breath, pedal edema, orthostatic symptoms, palpitation, diarrhea, excessive nonsteroidal anti-inflammatory medication intake, history of renal dysfunction. She is not known to have any proteinuria , retinopathy or LVH. She claims to be compliant with her medications. She does not have any headache, visual disturbances, weakness, CVA, CHF, carotid stenosis, PAD or PAULA. She was accompanied by her daughter during this office visit. [facility] Medical History (Updated 05/22/24 @ 11:51 by Basil Chance MD) Dysphagia Peripheral neuropathy History of chemotherapy Hypokalemia Port-A-Cath in place Arthritis Elevated cholesterol Invasive ductal carcinoma of right breast Type 2 diabetes mellitus Hypertension Beta thalassemia Surgical History History of modified radical mastectomy of right breast (04/04/23) Hx of bilateral cataract extraction H/O colonoscopy History of delivery (1982) Family History Sister Breast cancer Social History Household Members: None Housing: Apartment Are you a primary healthcare architect to a significant other at home: No Do you presently have 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 or other home services: No Alcohol intake: never Comment: slight unsteadiness Patient Tobacco Use Status: Never used Tobacco Advance Directives Date on File: 09/01/22 service: No Current occupational status: retired Female Reproductive History Menstrual Age of Menarche: 17 Review of Systems Const All systems reviewed & are unremarkable except as noted in HPI and below Physical Exam Const General: comfortable and no acute distress Orientation/consciousness: patient oriented x3 HEENT Head: Yes normocephalic Mouth: Normal oral and palatal mucosa present Eyes EOM: EOMs intact bilaterally Neck Neck: Yes supple Resp Auscultation: clear to auscultation bilaterally Cardio Jugular venous distension: no JVD Rate: regular rate GI Palpation (GI): Soft to palpation Auscultation: normal bowel sounds General: Yes no CVA tenderness Back/Spine/Pelvis Back: no CVA tenderness Skin General skin exam: no rashes or lesions noted Neuro General: patient oriented x3 and moves all extremities Extrem General: Yes no pedal edema Results Reviewed Nephrology Results: Sodium 142 mmol/L (135-145) 06/07/24 Potassium 4.2 mmol/L (3.3-5.1) 06/07/24 Chloride 106 mmol/L (96-108) 06/07/24 Carbon Dioxide 26 mmol/L (22-29) 06/07/24 BUN 18 mg/dL (9-16) H 06/07/24 Creatinine 0.72 mg/dL (0.5-1.4) 06/07/24 Calcium 9.8 mg/dL (8.4-10.2) 04/22/24 Urine Protein Negative mg/dL (Neg-Trace) 10/27/22 Assessment & Plan Assessment & Plan (1) Hypokalemia: Code(s): E87.6 - Hypokalemia Category: Medical (2) Hypertension: Code(s): I10 - Essential (primary) hypertension Category: Medical Qualifiers: Hypertension type: primary hypertension Qualified Code(s): I10 - Essential (primary) hypertension Plan Kera has longstanding hypertension for many decades. Her renal functions are normal. I reviewed aldosterone, renin & cortisol as well as repeat K . I asked her to take losartan 100 mg in the morning consistently every day along with metoprolol. She was on spironolactone 25 mg daily to be taken in the evening, which I increased it to 50 mg at night from today. I shall consider doing a 24 hour ambulatory blood pressure monitor her blood pressure readings it continues to be labile. She should remain on a low-sodium diet and maintain good hydration. She has no history of LVH, retinopathy or proteinuria. She she will be seen in the office in follow-up in a few weeks for continued care. Answered all questions Orders: Orders Electrolytes 2 Weeks E87.6 - Hypokalemia, I10 - Essential (primary) hypertension Blood Urea Nitrogen 2 Weeks E87.6 - Hypokalemia, I10 - Essential (primary) hypertension Creatinine 2 Weeks E87.6 - Hypokalemia, I10 - Essential (primary) hypertension Medications: Changed From spironolactone 25 mg PO DAILY 30 tabs 3RF To spironolactone 50 mg PO DAILY 30 tabs 4RF Coding Level of Care Code Est Pt Level 4 (60120) Diagnoses Hypokalemia E87.6 Primary hypertension I10 Hypertension type: primary hypertension
[2024-06-26 11:11] VITALS: BP 166/100; PULSE 79; O2SAT 99; BMI 25.5
--- OUTSIDE RECORDS SUMMARY | 2024-06-26 12:59 | XMS_ITS ---
Author Organization [facility] Address [address] [place] [address] Care Team Providers Care Health Program Analyst Name Role Phone Jordan [place], Roseline Primary Care Provider Og Severino [phone] REASON FOR VISIT index card? Encounters Encounter Location Date Provider Diagnosis [facility] [address] [place] [address] 09/03/2023 Og Hook Plan Of Treatment No Information Progress Notes * STOLLTORIEB: 2 (83 yo F)Acc No.[id number]:09/03/2023 Patient:?JB STOLLA :1940???Age:83 Y???Sex:Female Address:[address] [place] [address] A, [place], [address] * true * Date:? Generated for Dang barclay/Shirley/eTransmitting on:?06/26/2024 12:59 PM EDT
--- OUTSIDE RECORDS SUMMARY | 2024-06-26 12:59 | XMS_ITS | Patient Health Record ---
Author Organization [facility] Address [address] [place] [address] Care Team Providers Care Doorshaker Name Role Phone Roseline Morocho MD Primary Care Provider Og Severino [phone] Results Component Value Reference Range Notes CT soft tissue neck w con Reviewed date:08/27/2023 10:23:04 PM Interpretation: Performing Lab: Notes/Report: [facility] [address] [place] [address] [address] Scan Report Signed Patient: Kristy Stovall MR#: [id number] [birth year] : 1940 Acct:[id number] Age/Sex: 82 / F ADM Date: 08/25/23 Loc: HO.S3 363-[address]: Marcelo Arenas MD Ordering Physician: Og Hook MD Date of Service: 08/27/23 Procedure(s): CT soft tissue neck w IV con Accession Number(s): [id number] cc: ROSELINE MOROCHO MD; Og Hook MD [...] or axillary adenopathy is visualized within the ofozk-ya-ecte of this examination. Pharyngeal mucosal spaces are symmetric. Parapharyngeal and retromaxillary fat is preserved. Rim Technician spaces are symmetric. The parotid and [...] in OV> 08/27/23 1511 DD/ 0930 TD/TT: Education Courses Sales Representative: [address] [address] [address] Scan Report Signed Patient: Kristy Stovall MR#: [id number] 08 : 1940 Acct:[id number] Age/Sex: 82 / F ADM Date: 08/25/23 Loc: .S3 363-[address]: Marcelo Arenas MD Ordering Physician: Og Hook MD Date of Service: 08/27/23 Procedure(s): CT sof t tissue neck w IV con Accession Number(s): [id number] cc: ROSELINE MOROCHO MD ; Og Hook [...] axill sarai adenopathy is visualized within the umrcw-tb-zrdm of thi s examination. Pharyngeal mucosal s paces are symmetric. Parapharyngeal and retromaxillary fat i s preserved. Rim Technician spaces are symmetric. The parotid and [...] in OV> 08/27/23 1511 DD/ 0930 TD/TT: Education Courses Sales Representative: Pathology Reviewed date:09/15/2023 05:29:31 PM Interpretation: Performing Lab:[facility], [address] [place] [address] Notes/Report: -- Name: Kristy Stovall Age/Sex: 82/F : 1940 Unit#: [id number] Attend Dr: Karina Luu MD Re08/25/23 Status : DIS IN [facility] 363-1 Disch: 08/30/23 -- SPEC : [id number] RECD : 06/ STATUS: EASTON GUTIERREZ NUM: [id number] CARLOS: 08/29/23-[address] [facility] [address]: Og Hook MD ENTERED: 08/29/23-11 [...] Kristy Stovall Age/Sex: 82/F : 1940 Unit#: [id number] Attend Dr: Karina Luu MD Re08/25/23 Status : DIS IN Location: [facility] 363-1 Disch: 08/30/23 -- SPEC : [id number] RECD : 08/29/23 STATUS: EASTON GUTIERREZ NUM: [id number] CARLOS: 08/29/23-[address] [facility] [address]: Og Hook MD ENTERED: 08/29/23- [...] on B1. 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 Inpatient [address] [place], [place] [phone] 08/29/2023 Og Hook [facility] [address] [facility] [address] [place] [address] 09/03/2023 Og Hook Plan Of Treatment No Information Insurance Providers Payer Name Payer Address Payer Phone Subscriber Number Group Number Insured Name Patient Relationship to Insured Coverage Start Date Coverage End Date [facility] [address] [address] [place] [address] [phone] [id number] KRISTY PAREKH Self - patient is the insured
--- OUTSIDE RECORDS SUMMARY | 2024-06-26 12:59 | XMS_ITS ---
Author Organization [facility] Address [address] [place] [address] Care Team Providers Care Spring Forger Name Role Phone Jordan [place], Roseline Primary Care Provider Og Severino [phone] REASON FOR VISIT painful swallowing Encounters Encounter Location Date Provider Diagnosis [facility] [place] [facility] [place] [address] [place], [place] [phone] 08/29/2023 Og Hook Plan Of Treatment No Information Progress Notes * JB STOLLADOB: 2 (83 yo F)Acc No.[id number]:08/29/2023 EGD/MAC Patient:?KRISTY STOLL Provider:?Og Hook MD :1940???Age:82 Y???Sex:Female D ate:08/29/2023 Address:[address] [place], [place] [phone] Pcp:Roseline Ortega MD Subjective: * Chief Complaints: [...] MD Date:? 024 Generated for Dang barclay/Shirley/eTransmitting on:?06/26/2024 12:58 PM EDT
== END 2024-06-26 11:30 | disposition home or self-care (01) ==
LOC: HO.HKAS 11:01
PROVIDERS: PCP Internal Medicine; Visit Provider Internal Medicine Nephrology
DX: E87.6 Hypokalemia (principal); I10 Essential (primary) hypertension
CPT/HCPCS: 99214

== ENCOUNTER → 2024-06-26 11:00 | Outpatient (BNVA) | payer MEDICARE, SELFPAY | PROVIDERS: PCP Internal Medicine; Visit Provider Internal Medicine Nephrology | DX: E87.6 Hypokalemia (principal); I10 Essential (primary) hypertension | CPT/HCPCS: 99212 ==

== ENCOUNTER 2024-07-22 11:39 | Outpatient (REF) | payer MEDICARE, SELFPAY ==
[2024-07-22 12:46] LABS: Anion Gap 13 (12-20); Blood Urea Nitrogen 19 mg/dL (9-16); Carbon Dioxide 25 mmol/L (22-29); Chloride 106 mmol/L (96-108); Estimated Glomerular Filt Rate > 60; Potassium 4.2 mmol/L (3.3-5.1); Sodium 140 mmol/L (135-145)
--- OUTSIDE RECORDS SUMMARY | 2024-07-22 12:53 | XMS_ITS ---
Author Organization [facility] Address [address] [place] [address] Care Team Providers Care Poker Machine Attendant Name Role Phone Jordan [place], Roseline Primary Care Provider Og Severino [phone] REASON FOR VISIT painful swallowing Encounters Encounter Location Date Provider Diagnosis [facility] [place] [address] [place], [place] [phone] 08/29/2023 Og Hook Plan Of Treatment No Information Progress Notes * JB STOLLADOB: 2 (83 yo F)Acc No.[id number]:08/29/2023 EGD/MAC Patient:?KRISTY STOLL Provider:?Og Hook MD :1940???Age:82 Y???Sex:Female D ate:08/29/2023 Address:[address] [place], [place] [phone] Pcp:Roseline Ortega MD Subjective: * Chief Complaints: [...] MD Date:? 024 Generated for Dang barclay/Shirley/eTransmitting on:?07/22/2024 12:53 PM EDT
--- OUTSIDE RECORDS SUMMARY | 2024-07-22 12:53 | XMS_ITS ---
Author Organization [facility] Address [address] [place] [address] Care Team Providers Care Glove Brusher Name Role Phone Jordan [place], Roseline Primary Care Provider Og Severino [phone] REASON FOR VISIT index card? Encounters Encounter Location Date Provider Diagnosis [facility] [address] [place] [address] 09/03/2023 Og Hook Plan Of Treatment No Information Progress Notes * STOLLTORIEB: 2 (83 yo F)Acc No.[id number]:09/03/2023 Patient:?KRISTY STOLL :1940???Age:83 Y???Sex:Female Address:[address] [place] [address] A, [place], [address] * true * Date:? Generated for Dang bacrlay/Shirley/eTransmitting on:?07/22/2024 12:53 PM EDT
--- OUTSIDE RECORDS SUMMARY | 2024-07-22 12:53 | XMS_ITS | Patient Health Record ---
Author Organization [place] [facility] Address [address] [place] [address] Care Team Providers Care Caterers Helper Name Role Phone Roseline Morocho MD Primary Care Provider Og Severino [phone] Results Component Value Reference Range Notes CT soft tissue neck w con Reviewed date:08/27/2023 10:23:04 PM Interpretation: Performing Lab: Notes/Report: [facility] [address] [place] [address] [address] Scan Report Signed Patient: Kristy Stovall MR#: [id number] [birth year] : 1940 Acct:[id number] Age/Sex: 82 / F ADM Date: 08/25/23 Loc: HO.S3 363-[address]: Marcelo Arenas MD Ordering Physician: Og Hook MD Date of Service: 08/27/23 Procedure(s): CT soft tissue neck w IV con Accession Number(s): [id number] cc: ROSELINE MOROCHO MD; Og Hook MD [...] or axillary adenopathy is visualized within the cjzho-vr-ypww of this examination. Pharyngeal mucosal spaces are symmetric. Parapharyngeal and retromaxillary fat is preserved. Technical Sales Director spaces are symmetric. The parotid and submandibular [...] in OV> 08/27/23 1511 DD/ 0930 TD/TT: Time Study Engineer: [address] [address] [address] Scan Report Signed Patient: Kristy Stovall MR#: [id number] 08 : 1940 Acct:[id number] Age/Sex: 82 / F ADM Date: 08/25/23 Loc: .S3 363-[address]: Marcelo Arenas MD Ordering Physician: Og Hook MD Date of Service: 08/27/23 Procedure(s): CT sof t tissue neck w IV con Accession Number(s): [id number] cc: ROSELINE MOROCHO MD ; Og Hook [...] axill sarai adenopathy is visualized within the izdfu-pp-kjsa of thi s examination. Pharyngeal mucosal s paces are symmetric. Parapharyngeal and retromaxillary fat i s preserved. Technical Sales Director spaces are symmetric. The parotid and submandi [...] in OV> 08/27/23 1511 DD/ 0930 TD/TT: Time Study Engineer: Pathology Reviewed date:09/15/2023 05:29:31 PM Interpretation: Performing Lab:[facility], [address] [place] [phone] Notes/Report: -- Name: Kristy [place]ov[place] Age/Sex: 82/F : 1940 Unit#: [id number] Attend Dr: Karina Luu MD Re08/25/23 Status : DIS IN [facility]: [facility] 363-1 Disch: 08/30/23 -- SPEC : [id number] RECD : 06/ STATUS: EASTON GUTIERREZ NUM: [id number] CARLOS: 08/29/23-[address] [facility] [address]: Og Hook MD ENTERED: [...] Kristy Stovall Age/Sex: 82/F : 1940 Unit#: [id number] Attend Dr: Karina Luu MD Re08/25/23 Status : DIS IN Location: [facility] 363-1 Disch: 08/30/23 -- SPEC : [id number] RECD : 08/29/23 STATUS: EASTON GUTIERREZ NUM: [id number] CARLOS: 08/29/23-[address] [facility] [address]: Og Hook MD ENTERED: [...] on B1. Copies To: Karina Luu MD [address] [place] [address] ROSELINE MOROCHO MD [address] [place] [address] Og Hook MD [facility] [address] [place] [address] -- Signed (si gnature on file) Erin Gema 08/30/23 1617 -- END OF REPORT Complete Blood Count Auto Di ff Reviewed date:08/30/2023 12:39:16 PM Interpretation: Performing Lab:[facility], [address] [place] [phone] Notes/Report: Missed x2 [facility] White Blood Count [...] Risk Notes Problem Benign neoplasm of stomach (66751670) Gastric polyps (K31.7) Active confirmed Problem Odynophagia (74536992) Odynophagia (R13.10) Active confirmed Encounters Encounter Location Date Provider Diagnosis [facility] [address] [place], [place] [phone] 08/29/2023 Og Hook [facility] [address] [facility] [address] [place] [address] 09/03/2023 Og Hook Plan Of Treatment No Information Insurance Providers Payer Name Payer Address Payer Phone Subscriber Number Group Number Insured Name Patient Relationship to Insured Coverage Start Date Coverage End Date [facility] [address] [address] [place] [address] [id number] KRISTY PAREKH Self - patient is the insured
[2024-07-26 10:34] LABS: Renin 0.15 ng/mL/h (0.25-5.82)
== END 2024-07-22 11:40 | disposition home or self-care (01) ==
LOC: HO.LAB 11:39
PROVIDERS: Visit Provider Internal Medicine Nephrology
DX: E87.6 Hypokalemia (principal); I10 Essential (primary) hypertension; E87.5 Hyperkalemia
CPT/HCPCS: 36415; 80051; 82088; 82565; 84244; 84520

== ENCOUNTER 2024-07-25 11:34 | Outpatient (AMB) | payer MEDICARE, SELFPAY ==
--- OUTSIDE RECORDS SUMMARY | 2024-07-25 11:36 | XMS_ITS ---
Author Organization [facility] Address [address] [place] [address] Care Team Providers Care Customer Sales Advisor Name Role Phone Jordan [place], Roseline Primary Care Provider Og Severino [phone] REASON FOR VISIT painful swallowing Encounters Encounter Location Date Provider Diagnosis [facility] Inpatient [address] [place], [place] [phone] 08/29/2023 Og Hook Plan Of Treatment No Information Progress Notes * JB STOLLADOB: 2 (83 yo F)Acc No.[id number]:08/29/2023 EGD/MAC Patient:?KRISTY STOLL Provider:?Og Hook MD :1940???Age:82 Y???Sex:Female D ate:08/29/2023 Address:[address] [place], [place] [phone] Pcp:Roseline Ortega MD Subjective: * Chief Complaints: [...] MD Date:? 024 Generated for Dang barclay/Shirley/eTadairsmitting on:?07/25/2024 11:36 AM EDT
[2024-07-25 12:02] VITALS: BP 130/80; PULSE 69; O2SAT 97; BMI 25.8
--- NOTE | 2024-07-25 12:02 | HO.NEPHOV ---
Vital Signs 07/25/24 12:02 Height 5 ft 8 in Weight 169 lb 8 oz BMI 25.8 BP 130/80 Blood Pressure Location Lt brachial Position Sitting Pulse 69 Pulse Source Pulse Oximeter Pulse Oximetry (%) 97 Oxygen Delivery Method Room Air Intake Visit Reasons: 3 wks f/u-Conf w/Princess daughter Physical Security Specialist Required: No Accompanied by: Daughter Allergies metformin Allergy (Intermediate, Verified 07/25/24 12:02) Vomiting HPI Comments Details: I had the privilege of seeing Ms. Stovall in follow up for hypertension. She is known to have hypertension for well over 30 years. She has history of right breast invasive ductal cancer diagnosed in 2022 and undergone chemotherapy. Her serum potassium has been running on the low side needing replacements. She has good with low-sodium diet but has been taking losartan orally every other day. She is not on any diuretics. She also has been on metoprolol but had been taking amlodipine a while which has been put on hold. She denies headache, double vision, chest pain, shortness of breath, pedal edema, orthostatic symptoms, palpitation, diarrhea, excessive nonsteroidal anti-inflammatory medication intake, history of renal dysfunction. She is not known to have any proteinuria , retinopathy or LVH. She claims to be compliant with her medications. She does not have any headache, visual disturbances, weakness, CVA, CHF, carotid stenosis, PAD or PAULA. She was accompanied by her daughter during this office visit. [facility]LY [facility], [facility] Medical History (Updated 05/22/24 @ 11:51 by Basil Chance MD) Dysphagia Peripheral neuropathy History of chemotherapy Hypokalemia Port-A-Cath in place Arthritis Elevated cholesterol Invasive ductal carcinoma of right breast Type 2 diabetes mellitus Hypertension Beta thalassemia Surgical History History of modified radical mastectomy of right breast (04/04/23) Hx of bilateral cataract extraction H/O colonoscopy History of delivery (1982) Family History Sister Breast cancer Social History Household Members: None Housing: Apartment Are you a primary hospice patient care secretary to a significant other at home: No Do you presently have 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 or other home services: No Alcohol intake: never Comment: slight unsteadiness Patient Tobacco Use Status: Never used Tobacco Advance Directives Date on File: 09/01/22 service: No Current occupational status: retired Female Reproductive History Menstrual Age of Menarche: 17 Review of Systems Const All systems reviewed & are unremarkable except as noted in HPI and below Physical Exam Vital Signs: Last Vital Signs Pulse 69 07/25/24 12:02 BP 146/70 H 07/25/24 12:02 Pulse Ox 97 07/25/24 12:02 Oxygen Delivery Method Room Air 07/25/24 12:02 BMI result Body Mass Index 25.8 Const General: comfortable and no acute distress Orientation/consciousness: patient oriented x3 HEENT Head: Yes normocephalic Mouth: Normal oral and palatal mucosa present Eyes EOM: EOMs intact bilaterally Neck Neck: Yes supple Resp Auscultation: clear to auscultation bilaterally Cardio Jugular venous distension: no JVD Rate: regular rate GI Palpation (GI): Soft to palpation Auscultation: normal bowel sounds General: Yes no CVA tenderness Back/Spine/Pelvis Back: no CVA tenderness Skin General skin exam: no rashes or lesions noted Neuro General: patient oriented x3 and moves all extremities Extrem General: Yes no pedal edema Results Reviewed Nephrology Results: Hgb 12.7 g/dl (12.0-16.0) 04/22/24 WBC 5.2 X10*3/uL (4.8-10.8) 04/22/24 Plt Count 149 X10*3/uL (160-400) L 04/22/24 Sodium 140 mmol/L (135-145) 07/22/24 Potassium 4.2 mmol/L (3.3-5.1) 07/22/24 Chloride 106 mmol/L (96-108) 07/22/24 Carbon Dioxide 25 mmol/L (22-29) 07/22/24 BUN 19 mg/dL (9-16) H 07/22/24 Creatinine 0.75 mg/dL (0.5-1.4) 07/22/24 Calcium 9.8 mg/dL (8.4-10.2) 04/22/24 Urine Protein Negative mg/dL (Neg-Trace) 10/27/22 Assessment & Plan Assessment & Plan (1) Hypertension: Code(s): I10 - Essential (primary) hypertension Category: Medical Qualifiers: Hypertension type: primary hypertension Qualified Code(s): I10 - Essential (primary) hypertension Plan Kera has longstanding hypertension for many decades. Her renal functions are normal. I reviewed aldosterone, renin & cortisol as well as repeat K . I asked her to take losartan 100 mg in the morning consistently every day along with metoprolol. She should continue spironolactone 50 mg at night . She should remain on a low-sodium diet and maintain good hydration. She has no history of LVH, retinopathy or proteinuria. Answered all questions Orders: Orders Creatinine 3 Months I10 - Essential (primary) hypertension Electrolytes 3 Months I10 - Essential (primary) hypertension Calcium 3 Months I10 - Essential (primary) hypertension Blood Urea Nitrogen 3 Months I10 - Essential (primary) hypertension Coding Level of Care Code Est Pt Level 4 (20844) Diagnoses Primary hypertension I10 Hypertension type: primary hypertension
== END 2024-07-25 12:21 | disposition home or self-care (01) ==
LOC: HO.HKA 11:34
PROVIDERS: PCP Internal Medicine; Visit Provider Internal Medicine Nephrology
DX: I10 Essential (primary) hypertension (principal)
CPT/HCPCS: 99214

== ENCOUNTER → 2024-07-25 11:34 | Outpatient (BNVA) | payer MEDICARE, SELFPAY | PROVIDERS: PCP Internal Medicine; Visit Provider Internal Medicine Nephrology | DX: I10 Essential (primary) hypertension (principal) | CPT/HCPCS: 99212 ==

== ENCOUNTER 2024-09-18 15:02 | Outpatient (AMB) | payer OTHER, SELFPAY ==
--- OUTSIDE RECORDS SUMMARY | 2023-08-29 06:10 | XMS_ITS ---
Author Organization [facility] Address [address] [place] [address] Care Team Providers Care [employer] Name Role Phone Jordan STOCKTON, Roseline Primary Care Provider Og Severino [phone] REASON FOR VISIT painful swallowing Encounters Encounter Location Date Provider Diagnosis [facility] Inpatient [address] [place], [place] [phone] 08/29/2023 Og Hook Plan Of Treatment No Information Progress Notes * JB STOLLADOB: 2 (84 yo F)Acc No.[id number]:08/29/2023 EGD/MAC Patient: KRISTY MILES Provider: Jena Hook MD :1940 A ge:82 Y S ex:Female Date:08/29/2023 Address:[address] [place], [place] [phone] Pcp:Roseline Ortega MD Subjective: * Chief Complaints: [...] Date: 08/29/2023 Generated for Dang barclay/Shirley/Carmelaitting on: 09/18/2024 03:48 PM EDT
--- NOTE | 2024-09-18 15:06 | MHC.OFFVIS ---
Vital Signs 09/18/24 15:11 Height 5 ft 8 in Weight 164 lb BMI 24.9 Intake Visit Reasons: 6 m follow up visit, breast exa/post mastectomy Intake Note: Patient is seen in office for 6 months follow up visit, breast exam. Pt c/o: no complaints mm:12/28/23 Ell Teacher Required: No Allergies metformin Allergy (Intermediate, Verified 07/25/24 12:02) Vomiting Medication List - Last Reconciled 09/18/24 by Inocente Saul RN ferrous sulfate (FeroSul) 325 mg PO DAILY fluticasone propionate 50 mcg/actuation 1 spray intranasal BID PRN losartan 100 mg PO DAILY metoprolol succinate ER 50 mg PO DAILY sennosides-docusate sodium 8.6-50 mg (Senna with Docusate Sodium) 1 tab-cap PO BEDTIME PRN spironolactone 50 mg PO DAILY HPI Comments Details: 84-year-old female patient with a history of hypertension, type 2 diabetes, beta thalassemia and a previous history of a large mass of the right breast at the upper inner quadrant. She has a family history of breast cancer including a sister who is a confirmed the disease. She is . CT of the chest revealed a suspicious appearing cystic mass corresponding to the palpable lesion. 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 He was referred to Dr. Christine and subsequently underwent neoadjuvant treatment followed by right modified radical mastectomy performed on 04/04/2023. Subsequent pathology revealed benign breast tissue with changes consistent with chemotherapy treatment, negative for residual carcinoma. Unremarkable appearing skin and nipple. Small intraductal papilloma. Eleven lymph nodes were negative for metastatic carcinoma (yp T0 ypN0, AJCC stage 8th addition, previously diagnosed grade 3 invasive ductal carcinoma, triple negative, [facility] diagnosis). She was evaluated by radiation therapy and subsequently declined further treatment. Genetic testing performed on 09/01/2022 revealed no clinically significant variants (Brenna). She continues to be followed by Dr. Christine. Left mammogram performed on 12/28/2023 revealed no mammographic evidence of malignancy (BI-RADS 2). Routine follow-up mammogram of the left breast in 1 year is recommended. [facility] Medical History Dysphagia Peripheral neuropathy History of chemotherapy Hypokalemia Port-A-Cath in place Arthritis Elevated cholesterol Invasive ductal carcinoma of right breast Type 2 diabetes mellitus Hypertension Beta thalassemia Surgical History History of modified radical mastectomy of right breast (04/04/23) Hx of bilateral cataract extraction H/O colonoscopy History of delivery (1982) Family History Sister Breast cancer Social History Household Members: None Housing: Apartment Are you a primary ocular care technologist to a significant other at home: No Do you presently have 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 or other home services: No Alcohol intake: never Comment: slight unsteadiness Patient Tobacco Use Status: Never used Tobacco Advance Directives Date on File: 09/01/22 service: No Current occupational status: retired Female Reproductive History Menstrual Age of Menarche: 17 Review of Systems Const All systems reviewed & are unremarkable except as noted in HPI and below Physical Exam Vital Signs: BMI result Body Mass Index 24.9 Const General: comfortable Nutritional Appearance: well nourished Orientation/consciousness: patient oriented x3 Limitations: ambulation with walker Chest Other: Left breast with no palpable mass, skin change, nipple discharge, or enlarged lymph nodes. Right chest: Well-healed mastectomy incision with no palpable mass, fluid collection or enlarged lymph nodes. GI Inspection: Yes normal to inspection Skin Other: Warm, dry, no rash Neuro Other: Mobility Assessment: 1. 3 meter assessment time (seconds):8 2. Gait observations: Ambulation with walker General: patient oriented x3 Extrem General: Yes no clubbing, cyanosis or edema Assessment & Plan Assessment & Plan (1) Triple negative malignant neoplasm of breast: Code(s): C50.919 - Malignant neoplasm of unspecified site of unspecified female breast Category: Surgical (2) Invasive ductal carcinoma of right breast: Comment: most recent chemotherapy 02/2023 Code(s): C50.911 - Malignant neoplasm of unspecified site of right female breast Category: Medical Plan Patient continues to improve following right mastectomy. Right chest wound is clean and intact with no evidence of recurrence. Left breast is normal as well. Patient will continue follow-up with Dr. Christine and return in our office in approximately 6 months for follow-up examination. Follow-up mammogram in December 2024 is recommended. Orders: Orders MM screening mammo unilat LT 12/29/24 C50.911 - Malignant neoplasm of unspecified site of right female breast, C50.919 - Malignant neoplasm of unspecified site of unspecified female breast Coding Level of Care Code Est Pt Level 3 (96615) Complex EM visit Add On G2211 Diagnoses Triple negative malignant neoplasm of breast C50.919 Invasive ductal carcinoma of right breast C50.911
[2024-09-18 15:11] VITALS: BMI 24.9
== END 2024-09-18 15:28 | disposition home or self-care (01) ==
LOC: HO.HGS 15:03
PROVIDERS: PCP Internal Medicine; Visit Provider Surgery
DX: C50.919 Malignant neoplasm of unspecified site of unspecified female breast (principal); C50.911 Malignant neoplasm of unspecified site of right female breast
CPT/HCPCS: 99213; G2211

== ENCOUNTER → 2024-09-18 15:02 | Outpatient (BNVA) | payer MEDICARE, MEDICAID, SELFPAY | PROVIDERS: PCP Internal Medicine; Visit Provider Surgery | DX: C50.911 Malignant neoplasm of unspecified site of right female breast (principal); Z90.11 Acquired absence of right breast and nipple; Z79.899 Other long term (current) drug therapy | CPT/HCPCS: 99212 ==

== ENCOUNTER 2024-10-20 16:32 | Outpatient (REF) | payer MEDICARE, SELFPAY ==
--- OUTSIDE RECORDS SUMMARY | 2023-08-29 06:10 | XMS_ITS ---
Author Organization [facility] Address [address] [place] [address] Care Team Providers Care Office Services Assistant Name Role Phone Jordan STOCKTON, Roseline Primary Care Provider Og Severino [phone] REASON FOR VISIT painful swallowing Encounters Encounter Location Date Provider Diagnosis [facility] [place] In[place] [address] [place], [place] [phone] 08/29/2023 Og Hook Plan Of Treatment No Information Progress Notes * JB STOLLADOB: 2 (84 yo F)Acc No.[id number]:08/29/2023 EGD/MAC Patient: KRISTY MILES Provider: Jena Hook MD :1940 A ge:82 Y S ex:Female Date:08/29/2023 Address:[address] [place], [place] [phone] Pcp:Roseline Ortega MD Subjective: * Chief Complaints: * 1 . Painful swallowing. * Medical History: Objective: * Vitals: Assessment: Plan: * Treatment: * * The named appointment provid er may or may not be the originator of this progress note, and it is not deemed complete until electronically signed by the appointment provider. Sign off status: Pending * Provider: Jena Hook MD Date: 08/29/2023 Generated for Dang barclay/Shirley/Carmelaitting on: 10/20/2024 04:34 PM EDT
[2024-10-20 17:54] LABS: Anion Gap 14 (12-20); Blood Urea Nitrogen 17 mg/dL (9-16); Calcium 9.9 mg/dL (8.4-10.2); Carbon Dioxide 23 mmol/L (22-29); Chloride 109 mmol/L (96-108); Estimated Glomerular Filt Rate > 60; Potassium 4.6 mmol/L (3.3-5.1); Sodium 141 mmol/L (135-145)
== END 2024-10-20 16:33 | disposition home or self-care (01) ==
LOC: HO.LAB 16:32
PROVIDERS: PCP Internal Medicine; Visit Provider Internal Medicine Nephrology
DX: I10 Essential (primary) hypertension (principal)
CPT/HCPCS: 36415; 80051; 82310; 82565; 84520

== ENCOUNTER 2024-10-24 10:43 | Outpatient (AMB) | payer MEDICARE, SELFPAY ==
--- OUTSIDE RECORDS SUMMARY | 2023-08-29 06:10 | XMS_ITS ---
Author Organization [facility] Address [address] [place] [address] Care Team Providers Care Supervisor Painting Department Name Role Phone Jordan STOCKTON, Roseline Primary Care Provider Og Severino [phone] REASON FOR VISIT painful swallowing Encounters Encounter Location Date Provider Diagnosis [facility] [place] In[place] [address] [place], [place] [phone] 08/29/2023 Og Hook Plan Of Treatment No Information Progress Notes * JB STOLLADOB: 2 (84 yo F)Acc No.[id number]:08/29/2023 EGD/MAC Patient: KRISTY MILES Provider: Jena Hook MD :1940 A ge:82 Y S ex:Female Date:08/29/2023 Address:[address] [place], [place] [phone] Pcp:Roseline Ortega MD Subjective: * Chief Complaints: * 1 . Painful swallowing. * Medical History: Objective: * Vitals: Assessment: Plan: * Treatment: * * The named appointment provid er may or may not be the originator of this progress note, and it is not deemed complete until electronically signed by the appointment provider. Sign off status: Pending * Provider: Jena Hook MD Date: 0 08/29/2023 Generated for Dang barclay/Shirley/Carmelaitting on: 10/24/2024 10:45 AM EDT
[2024-10-24 10:45] VITALS: BP 188/90; PULSE 57; O2SAT 96; BMI 26.5
--- NOTE | 2024-10-24 10:45 | HO.NEPHOV ---
Vital Signs 10/24/24 10:45 Height 5 ft 8 in Weight 174 lb BMI 26.5 BP 188/90 H Blood Pressure Location Lt brachial Position Sitting Pulse 57 Pulse Oximetry (%) 96 Oxygen Delivery Method Room Air Intake Visit Reasons: -[facility] Radiation Dosimetrist Required: No Accompanied by: Daughter Allergies metformin Allergy (Intermediate, Verified 10/24/24 10:48) Vomiting HPI Comments Details: I had the privilege of seeing Ms. Stovall in follow up for hypertension. She is known to have hypertension for well over 30 years. She has history of right breast invasive ductal cancer diagnosed in 2022 and undergone chemotherapy. Her serum potassium has been running on the low side needing replacements. She has good with low-sodium diet but has been taking losartan orally every other day. She is not on any diuretics. She also has been on metoprolol but had been taking amlodipine a while which has been put on hold. She denies headache, double vision, chest pain, shortness of breath, pedal edema, orthostatic symptoms, palpitation, diarrhea, excessive nonsteroidal anti-inflammatory medication intake, history of renal dysfunction. She is not known to have any proteinuria , retinopathy or LVH. She claims to be compliant with her medications. She does not have any headache, visual disturbances, weakness, CVA, CHF, carotid stenosis, PAD or PAULA. She was accompanied by her daughter during this office visit. [facility] Medical History Dysphagia Peripheral neuropathy History of chemotherapy Hypokalemia Port-A-Cath in place Arthritis Elevated cholesterol Invasive ductal carcinoma of right breast Type 2 diabetes mellitus Hypertension Beta thalassemia Surgical History History of modified radical mastectomy of right breast (04/04/23) Hx of bilateral cataract extraction H/O colonoscopy History of delivery (1982) Family History Sister Breast cancer Social History Household Members: None Housing: Apartment Are you a primary hospice care consultant to a significant other at home: No Do you presently have 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 or other home services: No Alcohol intake: never Comment: slight unsteadiness Patient Tobacco Use Status: Never used Tobacco Advance Directives Date on File: 09/01/22 service: No Current occupational status: retired Female Reproductive History Menstrual Age of Menarche: 17 Review of Systems Const All systems reviewed & are unremarkable except as noted in HPI and below Physical Exam Vital Signs: Last Vital Signs Pulse 57 10/24/24 10:45 BP 188/90 H 10/24/24 10:45 Pulse Ox 96 10/24/24 10:45 Oxygen Delivery Method Room Air 10/24/24 10:45 BMI result Body Mass Index 26.5 Const General: comfortable and no acute distress Orientation/consciousness: patient oriented x3 HEENT Head: Yes normocephalic Mouth: Normal oral and palatal mucosa present Eyes EOM: EOMs intact bilaterally Neck Neck: Yes supple Resp Auscultation: clear to auscultation bilaterally Cardio Jugular venous distension: no JVD Rate: regular rate GI Palpation (GI): Soft to palpation Auscultation: normal bowel sounds General: Yes no CVA tenderness Back/Spine/Pelvis Back: no CVA tenderness Skin General skin exam: no rashes or lesions noted Neuro General: patient oriented x3 and moves all extremities Extrem General: Yes no pedal edema Results Reviewed Nephrology Results: Hgb, (12.0-16.0) 11.6 g/dl L 08/14/24 WBC, (4.8-10.8) 8.1 X10*3/uL 08/14/24 Plt Count, (160-400) 164 X10*3/uL 08/14/24 Sodium, (135-145) 141 mmol/L 10/20/24 Potassium, (3.3-5.1) 4.6 mmol/L Δ 10/20/24 Chloride, (96-108) 109 mmol/L H 10/20/24 Carbon Dioxide, (22-29) 23 mmol/L 10/20/24 BUN, (9-16) 17 mg/dL H 10/20/24 Creatinine, (0.5-1.4) 0.76 mg/dL 10/20/24 Calcium, (8.4-10.2) 9.9 mg/dL 10/20/24 Assessment & Plan Assessment & Plan (1) Hypertension: Code(s): I10 - Essential (primary) hypertension Category: Medical Qualifiers: Hypertension type: primary hypertension Qualified Code(s): I10 - Essential (primary) hypertension Plan Kera has longstanding hypertension for many decades. Her renal functions are normal. I reviewed aldosterone, renin & cortisol as well as repeat K . I asked her to take losartan 100 mg in the morning consistently every day along with metoprolol. I increased her spironolactone to 75 mg at night . She may need 24 hr BPM ( biobeat). She should remain on a low-sodium diet and maintain good hydration. She has no history of LVH, retinopathy or proteinuria. F/U K ordered. Answered all questions Orders: Orders Creatinine 1 Month I10 - Essential (primary) hypertension Blood Urea Nitrogen 1 Month I10 - Essential (primary) hypertension Electrolytes 1 Month I10 - Essential (primary) hypertension Coding Level of Care Code Est Pt Level 4 (09282) Diagnoses Primary hypertension I10 Hypertension type: primary hypertension
== END 2024-10-24 11:04 | disposition home or self-care (01) ==
LOC: HO.HKA 10:44
PROVIDERS: PCP Internal Medicine; Visit Provider Internal Medicine Nephrology
DX: I10 Essential (primary) hypertension (principal)
CPT/HCPCS: 99214

== ENCOUNTER → 2024-10-24 10:43 | Outpatient (BNVA) | payer MEDICARE, SELFPAY | PROVIDERS: PCP Internal Medicine; Visit Provider Internal Medicine Nephrology | DX: I10 Essential (primary) hypertension (principal) | CPT/HCPCS: 99212 ==

== ENCOUNTER 2024-11-04 14:46 | Outpatient (AMB) | payer MEDICARE, SELFPAY ==
--- NOTE | 2024-11-04 14:48 | A.OFFPC_ITS ---
Vital Signs 11/04/24 14:55 Height 5 ft 7.44 in Weight 181 lb BMI 28.0 BP 195/87 H Respiration 16 Pulse 58 Pulse Source Pulse Oximeter Temp 98.1 F Temp Source Temporal Artery Scan Pulse Oximetry (%) 99 Oxygen Delivery Method Room Air Intake Visit Reasons: Establish care Residential Sales Associate Required: No Accompanied by: Daughter Allergies metformin Allergy (Intermediate, Verified 11/04/24 14:48) Vomiting Tobacco use date assessed: 11/04/24 Fall risk assessment: No Falls in past year Last assessed Fall Risk: 11/04/24 Dental Screening Dental Screen Date: 11/04/24 Did you have a dental visit in the last 12 months?: Yes Did you have a dental problem in the last 6 months where you did not have access to dental care?: No Was dental information given to patient?: Patient has dentist (pt has dentures) [facility] Medical History Dysphagia Peripheral neuropathy History of chemotherapy Hypokalemia Port-A-Cath in place Arthritis Elevated cholesterol Invasive ductal carcinoma of right breast Type 2 diabetes mellitus Hypertension Beta thalassemia Surgical History History of modified radical mastectomy of right breast (04/04/23) Hx of bilateral cataract extraction H/O colonoscopy History of delivery (1982) Family History Sister Breast cancer Social History (Updated 11/04/24 @ 15:07 by INDIA Lozano) Household Members: None Housing: Apartment Are you a primary senior care specialist to a significant other at home: No Do you presently have 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 or other home services: No Alcohol intake: current Alcohol intake frequency: does not drink Patient Tobacco Use Status: Never used Tobacco Advance Directives Date on File: 09/01/22 service: No Current occupational status: retired Cognitive needs: Yes (walker) Hearing needs: No Vision needs: Yes (reading glasses) Female Reproductive History Menstrual Age of Menarche: 17 Questionnaire PHQ-9 Over the last 2 weeks, how often have you been bothered by any of the following problems? 1. Little interest or pleasure in doing things: not at all 2. Feeling down, depressed, or hopeless: not at all 3. Trouble falling or staying asleep, or sleeping too much: not at all 4. Feeling tired or having little energy: not at all 5. Poor appetite or overeating: not at all 6. Feeling bad about yourself - or that you are a failure or have let yourself or your family down: not at all 7. Trouble concentrating on things, such as reading the newspaper or watching television: not at all 8. Moving or speaking so slowly that other people could have noticed. Or the opposite - being so fidgety or restless that you have been moving around a lot more than usual: not at all 9. Thoughts that you would be better off or of hurting yourself in some way: not at all Total score: 0 Source: Developed by Drs. Og Be, Sheri Montero, Peng Aguilar and colleagues, with an educational miguel from [employer]. Thrive Questionnaire Date Thrive assessed: 11/04/24 I am a: Patient What is your living situation today?: I have a steady place to live Within the past 12 months, did the food you bought not last and you didn't have the money to get more?: Never true Within the past 12 months, did you worry whether your food would run out before you got money to buy more?: Never true Do you have trouble paying for medicines?: No Do you have trouble getting transportation to medical appointments?: No Do you have trouble paying your heating and electricity bill?: No Do you have trouble taking care of your child, family member or friend?: No Do you have trouble with day-to-day activities such as bathing, preparing meals, shopping, managing finances, etc.?: No Are you currently unemployed and looking for a job?: No Are you interested in more education?: No Please select the resources that you would like help with: None THRIVE Score: 0 AUDIT C Alcohol Use Questionnaire (AUDIT-C) 1. How often do you have a drink containing alcohol?: Never 3. How often do you have six or more drinks on one occasion?: Never Total Score: 0 TEJA-7 AMB Questionnaire TEJA-7 Date TEJA - 7 assessed: 11/04/24 Feeling nervous, anxious, or on edge: 0 = Not at all Not being able to stop or control worryin = Not at all Worrying too much about different things: 0 = Not at all Trouble relaxin = Not at all Being so restless that it is hard to sit still: 0 = Not at all Becoming easily annoyed or irritable: 0 = Not at all Feeling afraid as if something awful might happen: 0 = Not at all Total TEJA-7 score (0-4 normal; 5-9 mild; 10-14 moderate; 15-21 severe): 0 Source: Developed by Drs. Og Be, Sheri Montero, Peng Aguilar and colleagues, with an educational miguel from [employer]. Physical exam (Primary Care) Vital Signs: Last Vital Signs Temp 98.1 F 11/04/24 14:55 Pulse 58 11/04/24 14:55 Resp 16 11/04/24 14:55 BP 195/87 H 11/04/24 14:55 Pulse Ox 99 11/04/24 14:55 Oxygen Delivery Method Room Air 11/04/24 14:55 BMI result Body Mass Index 28.0 Tobacco/Smoking Status: Tobacco use Status Tobacco use date assessed 11/04/24 11/04/24 14:50 Patient Tobacco Use Status Never used Tobacco 11/04/24 15:07 PHQ-9: PHQ-9 Score PHQ-9: Total score 0 11/04/24 15:11 Thrive Assessment: Date of Thrive Assessment Date Thrive assessed 11/04/24 11/04/24 14:50 Coding Level of Care Code New Pt Level 4 (14031) Complex EM visit Add On G2211 Diagnoses Primary hypertension I10 Hypertension type: primary hypertension Assessment & Plan Assessment & Plan (1) Hypertension: Code(s): I10 - Essential (primary) hypertension Category: Medical Qualifiers: Hypertension type: primary hypertension Qualified Code(s): I10 - Essent ial (primary) hypertension Plan: Betablocker dosage increased to 100 mg once a day. Plan History of Present Illness - The patient is an 84-year-old female presenting with hypertension management. - Hypertension: The patient reports persistent high blood pressure despite medication, with home readings around 174/54 mmHg. - Her medication regimen includes metoprolol, losartan, and spironolactone, with a recent increase in spironolactone dosage to 75 mg. - Breast Cancer: History of mastectomy following detection of a boil-like lesion with bloody fluid during a routine mammogram. - Anemia: Mild anemia noted in August, with normal potassium and kidney function. - Urinary Incontinence: Manages urinary incontinence with briefs. - Engages in regular physical activity. Social History - The patient engages in regular physical activity and exercises. Review of Systems - Cardiovascular: Reports hypertension with elevated readings at home and during doctor visits. - Genitourinary: Reports urinary incontinence. Physical Exam General: Cooperative and healthy appearing Nutritional Appearance: Well nourished Orientation/consciousness: Patient oriented x3 Limitations: No limitations Head: Normal to inspection General: Appearance normal, both eyes and all related structures Neck: Normal visual inspection Chest: Normal palpation of entire chest wall Respiratory: N ormal respiratory effort Neurology: Patient oriented x3, but reports urinary incontinence requiring briefs (medium size). Results - Labs: Mild anemia noted in August with normal potassium and kidney function. Plan 1. Hypertension - Increase metoprolol dosage to 100 mg until next appointment with Dr. Chance. - Continue monitoring blood pressure at home and record readings in the patient portal. 2. Breast Cancer - Continue follow-up care with Dr. Christine for breast cancer management. 3. Anemia - Monitor anemia status during routine blood work. 4. Urinary Incontinence - Continue use of briefs for management of urinary incontinence. Discussion Notes During the visit, I discussed with the patient the plan to increase her metoprolol dosage to better manage her hypertension until her next appointment with Dr. Chance. I advised her to continue monitoring her blood pressure at home and to record the readings in the patient portal for ongoing assessment. We also reviewed her current management for breast cancer with Dr. Christine and the use of briefs for urinary incontinence. I emphasized the importance of routine blood work to monitor her anemia status. The patient was informed about using the patient portal for non-emergency communication and to call for urgent concerns. Patient Instructions - Take metoprolol 100 mg daily until your next appointment. - Monitor your blood pressure at home and record the readings in the patient portal. - Continue using briefs for urinary incontinence management. - Follow up with Dr. Christine for breast cancer care. - Use the patient portal for non-emergency communication and call for urgent issues.
[2024-11-04 14:55] VITALS: BP 195/87; PULSE 58; RESP 16; TEMP 36.7; O2SAT 99; BMI 28.0
== END 2024-11-04 15:27 | disposition home or self-care (01) ==
LOC: HO.HMCSH 14:46
PROVIDERS: PCP Internal Medicine; Visit Provider Internal Medicine
DX: I10 Essential (primary) hypertension (principal)

== ENCOUNTER → 2024-11-04 14:46 | Outpatient (BNVA) | payer MEDICARE, SELFPAY | PROVIDERS: PCP Internal Medicine; Visit Provider Internal Medicine | DX: I10 Essential (primary) hypertension (principal) | CPT/HCPCS: 99202 ==

== ENCOUNTER 2024-11-28 16:25 | Outpatient (REF) | payer MEDICARE, SELFPAY ==
--- OUTSIDE RECORDS SUMMARY | 2023-08-29 06:10 | XMS_ITS ---
Author Organization [facility] Address [address] [place] [address] Care Team Providers Care Machine Folder Name Role Phone Jordan STOCKTON, Roseline Primary Care Provider Og Severino [phone] REASON FOR VISIT painful swallowing Encounters Encounter Location Date Provider Diagnosis [facility] [place] [address] [place], [place] [phone] 08/29/2023 Og Hook Plan Of Treatment No Information Progress Notes * JB STOLLADOB: 2 (84 yo F)Acc No.[id number]:08/29/2023 EGD/MAC Patient: KRISTY MILES Provider: Jena Hook MD :1940 A ge:82 Y S ex:Female Date:08/29/2023 Address:[address] [place], [place] [phone] Pcp:Roseline Ortega MD Subjective: * Chief Complaints: [...] Date: 08/29/2023 Generated for Dang barclay/Shirley/Carmelaitting on: 11/28/2024 04:28 PM EDT
--- OUTSIDE RECORDS SUMMARY | 2024-11-28 16:28 | XMS_ITS | Patient Health Record ---
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
[2024-11-28 17:25] LABS: Anion Gap 14 (12-20); Blood Urea Nitrogen 19 mg/dL (9-16); Carbon Dioxide 23 mmol/L (22-29); Chloride 106 mmol/L (96-108); Estimated Glomerular Filt Rate > 60; Potassium 4.5 mmol/L (3.3-5.1); Sodium 138 mmol/L (135-145)
== END 2024-11-28 16:26 | disposition home or self-care (01) ==
LOC: HO.LAB 16:25
PROVIDERS: PCP Internal Medicine; Visit Provider Internal Medicine Nephrology
DX: I10 Essential (primary) hypertension (principal)
CPT/HCPCS: 36415; 80051; 82565; 84520

== ENCOUNTER 2024-12-02 14:21 | Outpatient (AMB) | payer MEDICARE, SELFPAY ==
--- OUTSIDE RECORDS SUMMARY | 2023-08-29 06:10 | XMS_ITS ---
Author Organization [facility] Address [address] [place] [phone] Care Team Providers Care Senior Rd Engineer Name Role Phone Jordan STOCKTON, Roseline Primary Care Provider Og Severino [phone] REASON FOR VISIT painful swallowing Encounters Encounter Location Date Provider Diagnosis [facility] [place] [address] [place], [place] [phone] 08/29/2023 Og Hook Plan Of Treatment No Information Progress Notes * JB STOLLADOB: 2 (84 yo F)Acc No.[id number]:08/29/2023 EGD/MAC Patient: KRISTY MILES Provider: Jena Hook MD :1940 A ge:82 Y S ex:Female Date:08/29/2023 Address:[address] [place], [place] [phone] Pcp:Roseline Ortega MD Subjective: * Chief Complaints: [...] Date: 08/29/2023 Generated for Dang barclay/Shirley/Carmelaitting on: 12/02/2024 03:45 PM EDT
--- NOTE | 2024-12-02 14:28 | HO.NEPHOV_ITS ---
Vital Signs 12/02/24 14:30 Height 5 ft 7.44 in Weight 179 lb 2 oz BMI 27.7 BP 140/90 H Blood Pressure Location Lt brachial Position Sitting Pulse 61 Pulse Source Pulse Oximeter Pulse Oximetry (%) 98 Oxygen Delivery Method Room Air Intake Visit Reasons: 1mon f/u w/labs-Conf Skidder Lever Operator Required: No Accompanied by: Daughter Allergies metformin Allergy (Intermediate, Verified 12/02/24 14:30) Vomiting HPI Comments Details: I had the privilege of seeing Ms. Stovall in follow up for hypertension. She is known to have hypertension for well over 30 years. She has history of right breast invasive ductal cancer diagnosed in 2022 and undergone chemotherapy. Her serum potassium has been running on the low side needing replacements. She has good with low-sodium diet but has been taking losartan orally every other day. She is not on any diuretics. She also has been on metoprolol but had been taking amlodipine a while which has been put on hold. She denies headache, double vision, chest pain, shortness of breath, pedal edema, orthostatic symptoms, palpitation, diarrhea, excessive nonsteroidal anti- inflammatory medication intake, history of renal dysfunction. She is not known to have any proteinuria , retinopathy or LVH. She claims to be compliant with er medications. She does not have any headache, visual disturbances, weakness, CVA, CHF, carotid stenosis, PAD or PAULA. She was accompanied by her daughter during this office visit. [facility] Medical History Dysphagia Peripheral neuropathy History of chemotherapy Hypokalemia Port-A-Cath in place Arthritis Elevated cholesterol Invasive ductal carcinoma of right breast Type 2 diabetes mellitus Hypertension Beta thalassemia Surgical History History of modified radical mastectomy of right breast (04/04/23) Hx of bilateral cataract extraction H/O colonoscopy History of delivery (1982) Family History Sister Breast cancer Social History Household Members: None Housing: Apartment Are you a primary caregiver assisted living to a significant other at home: No Do you presently have 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 or other home services: No Alcohol intake: current Alcohol intake frequency: does not drink Patient Tobacco Use Status: Never used Tobacco Advance Directives Date on File: 09/01/22 service: No Current occupational status: retired Cognitive needs: Yes (walker) Hearing needs: No Vision needs: Yes (reading glasses) Female Reproductive History Menstrual Age of Menarche: 17 Review of Systems Const All systems reviewed & are unremarkable except as noted in HPI and below Physical Exam Vital Signs: Last Vital Signs Pulse 61 12/02/24 14:30 BP 204/90 H 12/02/24 14:30 Pulse Ox 98 12/02/24 14:30 Oxygen Delivery Method Room Air 12/02/24 14:30 BMI result Body Mass Index 27.7 Const General: comfortable and no acute distress Orientation/consciousness: patient oriented x3 HEENT Head: Yes normocephalic Mouth: Normal oral and palatal mucosa present Eyes EOM: EOMs intact bilaterally Neck Neck: Yes supple Resp Auscultation: clear to auscultation bilaterally Cardio Jugular venous distension: no JVD Rate: regular rate GI Palpation (GI): Soft to palpation Auscultation: normal bowel sounds General: Yes no CVA tenderness Back/Spine/Pelvis Back: no CVA tenderness Skin General skin exam: no rashes or lesions noted Neuro General: patient oriented x3 and moves all extremities Extrem General: Yes no pedal edema Results Reviewed Nephrology Results: Hgb, (12.0-16.0) 11.6 g/dl L 08/14/24 WBC, (4.8-10.8) 8.1 X10*3/uL 08/14/24 Plt Count, (160-400) 164 X10*3/uL 08/14/24 Sodium, (135-145) 138 mmol/L 11/28/24 Potassium, (3.3-5.1) 4.5 mmol/L 11/28/24 Chloride, (96-108) 106 mmol/L 11/28/24 Carbon Dioxide, (22-29) 23 mmol/L 11/28/24 BUN, (9-16) 19 mg/dL H 11/28/24 Creatinine, (0.5-1.4) 0.70 mg/dL 11/28/24 Calcium, (8.4-10.2) 9.9 mg/dL 10/20/24 Assessment & Plan Assessment & Plan (1) Hypertension: Code(s): I10 - Essential (primary) hypertension Category: Medical Qualifiers: Hypertension type: primary hypertension Qualified Code(s): I10 - Essential (primary) hypertension Plan Kera has longstanding hypertension for many decades. Her renal functions are normal. I reviewed aldosterone, renin & cortisol as well as repeat K . I asked her to take losartan 100 mg in the morning consistently every day along with metoprolol. She can continue spironolactone 100 mg at night . She may need 24 hr BPM ( biobeat). She should remain on a low-sodium diet and maintain good hydration. She has no history of LVH, retinopathy or proteinuria. I may start hydralazine at next visit . Answered all questions Coding Level of Care Code Est Pt Level 4 (55866) Diagnoses Primary hypertension I10 Hypertension type: primary hypertension
[2024-12-02 14:30] VITALS: BP 140/90; PULSE 61; O2SAT 98; BMI 27.7
--- OUTSIDE RECORDS SUMMARY | 2024-12-02 15:45 | XMS_ITS | Patient Health Record ---
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 [address] [address] [place] [address] [id number] KRISTY PAREKH Self - patient is the insured
== END 2024-12-02 14:57 | disposition home or self-care (01) ==
LOC: HO.HKAS 14:22
PROVIDERS: PCP Internal Medicine; Visit Provider Internal Medicine Nephrology
DX: I10 Essential (primary) hypertension (principal)
CPT/HCPCS: 99214

== ENCOUNTER → 2024-12-02 14:21 | Outpatient (BNVA) | payer MEDICARE, SELFPAY | PROVIDERS: PCP Internal Medicine; Visit Provider Internal Medicine Nephrology | DX: I10 Essential (primary) hypertension (principal) | CPT/HCPCS: 99212 ==

== ENCOUNTER 2024-12-29 08:58 | Outpatient (AMB) | payer MEDICARE, SELFPAY ==
[2024-12-29 09:13] VITALS: BP 146/82; PULSE 60; RESP 16; TEMP 36.6; O2SAT 99; BMI 27.4
--- NOTE | 2024-12-29 09:13 | MHC.PC.OV ---
Vital Signs 12/29/24 09:13 Height 5 ft 7.44 in Weight 177 lb BMI 27.4 BP 146/82 H Respiration 16 Pulse 60 Pulse Source Pulse Oximeter Temp 97.8 F Temp Source Temporal Artery Scan Pulse Oximetry (%) 99 Oxygen Delivery Method Room Air Intake Visit Reasons: follow up Travel Accommodations Rater Required: No Accompanied by: Daughter Allergies metformin Allergy (Intermediate, Verified 12/29/24 09:14) Vomiting Tobacco use date assessed: 12/29/24 Dental Screening Dental Screen Date: 11/04/24 [facility] Medical History Dysphagia Peripheral neuropathy History of chemotherapy Hypokalemia Port-A-Cath in place Arthritis Elevated cholesterol Invasive ductal carcinoma of right breast Type 2 diabetes mellitus Hypertension Beta thalassemia Surgical History History of modified radical mastectomy of right breast (04/04/23) Hx of bilateral cataract extraction H/O colonoscopy History of delivery (1982) Family History Sister Breast cancer Social History Household Members: None Housing: Apartment Are you a primary patient care manager to a significant other at home: No Do you presently have 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 or other home services: No Alcohol intake: current Alcohol intake frequency: does not drink Patient Tobacco Use Status: Never used Tobacco Advance Directives Date on File: 09/01/22 service: No Current occupational status: retired Cognitive needs: Yes (walker) Hearing needs: No Vision needs: Yes (reading glasses) Female Reproductive History Menstrual Age of Menarche: 17 Questionnaire PHQ-9 Over the last 2 weeks, how often have you been bothered by any of the following problems? 1. Little interest or pleasure in doing things: not at all 2. Feeling down, depressed, or hopeless: not at all 3. Trouble falling or staying asleep, or sleeping too much: not at all 4. Feeling tired or having little energy: not at all 5. Poor appetite or overeating: not at all 6. Feeling bad about yourself - or that you are a failure or have let yourself or your family down: not at all 7. Trouble concentrating on things, such as reading the newspaper or watching television: not at all 8. Moving or speaking so slowly that other people could have noticed. Or the opposite - being so fidgety or restless that you have been moving around a lot more than usual: not at all 9. Thoughts that you would be better off or of hurting yourself in some way: not at all Total score: 0 Source: Developed by Drs. Og Be, Sheri Montero, Peng Aguilar and colleagues, with an educational miguel from [employer] Thrive Questionnaire Date Thrive assessed: 11/04/24 I am a: Patient What is your living situation today?: I have a steady place to live Within the past 12 months, did the food you bought not last and you didn't have the money to get more?: Never true Within the past 12 months, did you worry whether your food would run out before you got money to buy more?: Never true Do you have trouble paying for medicines?: No Do you have trouble getting transportation to medical appointments?: No Do you have trouble paying your heating and electricity bill?: No Do you have trouble taking care of your child, family member or friend?: No Do you have trouble with day-to-day activities such as bathing, preparing meals, shopping, managing finances, etc.?: No Are you currently unemployed and looking for a job?: No Are you interested in more education?: No Please select the resources that you would like help with: None THRIVE Score: 0 AUDIT C Alcohol Use Questionnaire (AUDIT-C) 1. How often do you have a drink containing alcohol?: Never 3. How often do you have six or more drinks on one occasion?: Never Total Score: 0 TEJA-7 AMB Questionnaire TEJA-7 Date TEJA - 7 assessed: 11/04/24 Feeling nervous, anxious, or on edge: 0 = Not at all Not being able to stop or control worryin = Not at all Worrying too much about different things: 0 = Not at all Trouble relaxin = Not at all Being so restless that it is hard to sit still: 0 = Not at all Becoming easily annoyed or irritable: 0 = Not at all Feeling afraid as if something awful might happen: 0 = Not at all Total TEJA-7 score (0-4 normal; 5-9 mild; 10-14 moderate; 15-21 severe): 0 Source: Developed by Drs. Og Be, Sheri Montero, Peng Aguilar and colleagues, with an educational miguel from [employer] Physical exam (Primary Care) Vital Signs: Last Vital Signs Temp 97.8 F 12/29/24 09:13 Pulse 60 12/29/24 09:13 Resp 16 12/29/24 09:13 BP 146/82 H 12/29/24 09:13 Pulse Ox 99 12/29/24 09:13 Oxygen Delivery Method Room Air 12/29/24 09:13 BMI result Body Mass Index 27.4 Tobacco/Smoking Status: Tobacco use Status Tobacco use date assessed 12/29/24 12/29/24 09:20 Patient Tobacco Use Status Never used Tobacco 12/29/24 09:20 PHQ-9: PHQ-9 Score PHQ-9: Total score 0 12/29/24 09:21 Thrive Assessment: Date of Thrive Assessment Date Thrive assessed 11/04/24 12/29/24 09:20 Office Procedures Flu Questionnaire Does the patient have a severe egg allergy?: No Does the patient have severe life threatening allergies?: No Does the patient have a fever or illness today?: No Has the patient ever had Guillain-Oconto Syndrome?: No Has the patient ever had any past reaction to a flu shot?: No Immunizations Fluarix [id number] (PF) 45 mcg (15 mcg x 3)/0.5 mL IM syringe Performing Provider: Juan Jose Encarnacion MD [facility] Administered by: INDIA Lozano on 12/29/24 09:21 Dose Route Admin Location Dispensed Lot Number Expiration Date [facility] Supervisor Shuttle Preparation 0.5 mL IM Left Deltoid 0.5 mL [id number] 09/01/25 [id number] [employer] VIS Given Date VIS Provided VIS Publication Date 12/29/24 Single Vaccine 24 Eligibility Eligibility Date Funding Source Not [facility] Eligible 12/29/24 Private Coding Level of Care Code Est Pt Level 4 (40591) Complex EM visit Add On G2211 Diagnoses Primary hypertension I10 Hypertension type: primary hypertension Assessment & Plan Assessment & Plan (1) Hypertension: Code(s): I10 - Essential (primary) hypertension Category: Medical Qualifiers: Hypertension type: primary hypertension Qualified Code(s): I10 - Essential (primary) hypertension Plan: History of Present Illness - The patient is an 84-year-old female presenting with right shoulder pain and muscle cramps in the legs. - Right shoulder pain has been present recently, with limited range of motion noted. - Muscle cramps in the legs occur at night, particularly around 2:00 to 3:00 AM, and are muscle-related. - The patient is managing hypertension with losartan, metoprolol, and spironolactone, with improved blood pressure readings. - Recent preventative care includes a flu vaccination. Social History - The patient lives with her daughter, who assists with daily activities such as cooking and grocery shopping. - The patient attends a senior center for exercise and does not drive. Review of Systems - Musculoskeletal: Reports right shoulder pain and muscle cramps in legs. - Neurological: Denies stiffness upon waking. - Cardiovascular: Denies chest pain or palpitations. - Genitourinary: Denies urinary incontinence or urgency. Physical Exam General: Cooperative and healthy appearing Nutritional Appearance: Well nourished Orientation/consciousness: Patient oriented x3 Limitations: No limitations Head: Normal to inspection General: Appearance normal, both eyes and all related structures Neck: Normal visual inspection Chest: Normal palpation of entire chest wall Respiratory: N ormal respiratory effort Neurology: Patient oriented x3, but reports leg cramps at night. Results - Labs: Previous blood work in August showed normal cholesterol and liver function tests. Plan - Order an x-ray for the right shoulder to evaluate pain and limited motion. - Continue current antihypertensive regimen: losartan, metoprolol, and spironolactone. - Advise increased fluid intake and magnesium for muscle cramps. - Recent flu vaccination noted as part of preventative care. Discussion Notes I discussed the management of right shoulder pain, including ordering an x-ray to assess the cause. We reviewed the patient's current antihypertensive regimen, which includes losartan, metoprolol, and spironolactone, and noted improved blood pressure control. I advised the patient to increase fluid intake and continue magnesium supplementation to help with muscle cramps. We also confirmed that the patient received a flu vaccination as part of her preventative care. Patient Instructions - Continue taking your blood pressure medications as prescribed. - Increase your fluid intake and continue taking magnesium to help with leg cramps. - Follow up with the x-ray for your right shoulder as ordered. - Keep up with your preventative care, including vaccinations. Orders: Orders Influenza [id number] Immunization Today Z23 - Encounter for immunization XR shoulder RT min 2V Today S43.401A - Unspecified sprain of right shoulder joint, initial encounter
== END 2024-12-29 10:03 | disposition home or self-care (01) ==
LOC: HO.HMCSH 08:58
PROVIDERS: PCP Internal Medicine; Visit Provider Internal Medicine
DX: Z23 Encounter for immunization (principal); I10 Essential (primary) hypertension

== ENCOUNTER → 2024-12-29 08:58 | Outpatient (BNVA) | payer MEDICARE, SELFPAY | PROVIDERS: PCP Internal Medicine; Visit Provider Internal Medicine | DX: I10 Essential (primary) hypertension (principal); M25.511 Pain in right shoulder; Z23 Encounter for immunization | CPT/HCPCS: 90471; 90656; 99212 ==

== ENCOUNTER → 2024-12-31 10:15 | Outpatient (BNV) | payer MEDICARE, SELFPAY | PROVIDERS: PCP Internal Medicine; Visit Provider Radiology Body Imaging | DX: Z12.31 Encounter for screening mammogram for malignant neoplasm of breast (principal) | CPT/HCPCS: 77063; 77067 ==

== ENCOUNTER 2024-12-31 10:17 | Outpatient (REF) | payer MEDICARE, SELFPAY ==
--- OUTSIDE RECORDS SUMMARY | 2023-08-29 06:10 | XMS_ITS ---
Author Organization [facility] Address [address] [place] [address] Care Team Providers Care Flake Miller Helper Name Role Phone Jordan STOCKTON, Roseline Primary Care Provider Og Severino [phone] REASON FOR VISIT painful swallowing Encounters Encounter Location Date Provider Diagnosis [facility] [place] In[place] [address] [place], [place] [phone] 08/29/2023 Og Hook Plan Of Treatment No Information Progress Notes * JB STOLLADOB: 2 (84 yo F)Acc No.[id number]:08/29/2023 EGD/MAC Patient: KRISTY MILES Provider: Jena Hook MD :1940 A ge:82 Y S ex:Female Date:08/29/2023 Address:[address] [place], [place] [phone] Pcp:Roseline Ortega MD Subjective: * Chief Complaints: [...] 0 08/29/2023 Generated for Dang barclay/Shirley/Carmelaitting on: 12:46 PM EDT
--- OUTSIDE RECORDS SUMMARY | 2024-12-31 12:47 | XMS_ITS | Patient Health Record ---
Author Organization [facility] Address [address] [place] [address] Care Team Providers Care Skiing Instructor Name Role Phone Jordan STOCKTON, Roseline Primary Care Provider Og Severino [phone] Reason For Referral No Information Problems Problem Type SNOMED Code ICD Code Onset Dates Problem Status W/U Status Risk Notes Problem Benign neoplasm of stomach (10594823) Gastric polyps (K31.7) Active confirmed Problem Odynophagia (42593284) Odynophagia (R13.10) Active confirmed Plan Of Treatment No Information Insurance Providers Payer Name Payer Address Payer Phone Subscriber Number Group Number Insured Name Patient Relationship to Insured Coverage Start Date Coverage End Date [facility] [address] [address] [place] [address] [phone] [id number] KRISTY PAREKH Self - patient is the insured
== END 2024-12-31 10:18 | disposition home or self-care (01) ==
LOC: HO.MAMMO 10:17
PROVIDERS: PCP Internal Medicine; Visit Provider Surgery
DX: Z12.31 Encounter for screening mammogram for malignant neoplasm of breast (principal)
CPT/HCPCS: 77063; 77067

== ENCOUNTER 2025-01-01 10:52 | Outpatient (AMB) | payer MEDICARE, SELFPAY ==
--- OUTSIDE RECORDS SUMMARY | 2023-08-29 06:10 | XMS_ITS ---
Author Organization [facility] Address [address] [place] [address] Care Team Providers Care Field Liability Generalist Name Role Phone Jordan STOCKTON, Roseline Primary Care Provider Og Severino [phone] REASON FOR VISIT painful swallowing Encounters Encounter Location Date Provider Diagnosis [facility] [place] [address], [place] [phone] 08/29/2023 Og Hook Plan Of Treatment No Information Progress Notes * JB STOLLADOB: 2 (84 yo F)Acc No.[id number]:08/29/2023 EGD/MAC Patient: KRISTY MILES Provider: Jena Hook MD :1940 A ge:82 Y S ex:Female Date:08/29/2023 Address:[address] [place], [place] [phone] Pcp:Roseline Ortega MD Subjective: * Chief Complaints: [...] 0 08/29/2023 Generated for Dang barclay/Shirley/Carmelaitting on: 01:34 PM EDT
--- NOTE | 2025-01-01 11:33 | HO.NEPHOV ---
Vital Signs 01/01/25 11:35 Height 5 ft 7.44 in Weight 181 lb BMI 28.0 BP 130/70 Blood Pressure Location Lt brachial Position Sitting Pulse 67 Pulse Source Pulse Oximeter Pulse Oximetry (%) 98 Oxygen Delivery Method Room Air Intake Visit Reasons: 1mnth no labs-Conf Foreman/Pile Driving And Erection Required: No Accompanied by: Self / Same As Patient Allergies metformin Allergy (Intermediate, Verified 01/01/25 11:34) Vomiting HPI Comments Details: I had the privilege of seeing Ms. Stovall in follow up for hypertension. She is known to have hypertension for well over 30 years. She has history of right breast invasive ductal cancer diagnosed in 2022 and undergone chemotherapy. Her serum potassium has been running on the low side needing replacements. She has good with low-sodium diet but has been taking losartan orally every other day. She is not on any diuretics. She also has been on metoprolol but had been taking amlodipine a while which has been put on hold. She denies headache, double vision, chest pain, shortness of breath, pedal edema, orthostatic symptoms, palpitation, diarrhea, excessive nonsteroidal anti-inflammatory medication intake, history of renal dysfunction. She is not known to have any proteinuria , retinopathy or LVH. She claims to be compliant with her medications. She does not have any headache, visual disturbances, weakness, CVA, CHF, carotid stenosis, PAD or PAULA. [facility] Medical History Dysphagia Peripheral neuropathy History of chemotherapy Hypokalemia Port-A-Cath in place Arthritis Elevated cholesterol Invasive ductal carcinoma of right breast Type 2 diabetes mellitus Hypertension Beta thalassemia Surgical History History of modified radical mastectomy of right breast (04/04/23) Hx of bilateral cataract extraction H/O colonoscopy History of delivery (1982) Family History Sister Breast cancer Social History Household Members: None Housing: Apartment Are you a primary complex care nurse practitioner to a significant other at home: No Do you presently have 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 or other home services: No Alcohol intake: current Alcohol intake frequency: does not drink Patient Tobacco Use Status: Never used Tobacco Advance Directives Date on File: 09/01/22 service: No Current occupational status: retired Cognitive needs: Yes (walker) Hearing needs: No Vision needs: Yes (reading glasses) Female Reproductive History Menstrual Age of Menarche: 17 Review of Systems Const All systems reviewed & are unremarkable except as noted in HPI and below Physical Exam Vital Signs: Last Vital Signs Pulse 67 01/01/25 11:35 BP 172/78 H 01/01/25 11:35 Pulse Ox 98 01/01/25 11:35 Oxygen Delivery Method Room Air 01/01/25 11:35 BMI result Body Mass Index 28.0 Const General: comfortable and no acute distress Orientation/consciousness: patient oriented x3 HEENT Head: Yes normocephalic Mouth: Normal oral and palatal mucosa present Eyes EOM: EOMs intact bilaterally Neck Neck: Yes supple Resp Auscultation: clear to auscultation bilaterally Cardio Jugular venous distension: no JVD Rate: regular rate GI Palpation (GI): Soft to palpation Auscultation: normal bowel sounds General: Yes no CVA tenderness Back/Spine/Pelvis Back: no CVA tenderness Skin General skin exam: no rashes or lesions noted Neuro General: patient oriented x3 and moves all extremities Extrem General: Yes no pedal edema Results Reviewed Nephrology Results: Hgb, (12.0-16.0) 11.6 g/dl L 08/14/24 WBC, (4.8-10.8) 8.1 X10*3/uL 08/14/24 Plt Count, (160-400) 164 X10*3/uL 08/14/24 Sodium, (135-145) 138 mmol/L 11/28/24 Potassium, (3.3-5.1) 4.5 mmol/L 11/28/24 Chloride, (96-108) 106 mmol/L 11/28/24 Carbon Dioxide, (22-29) 23 mmol/L 11/28/24 BUN, (9-16) 19 mg/dL H 11/28/24 Creatinine, (0.5-1.4) 0.70 mg/dL 11/28/24 Assessment & Plan Assessment & Plan (1) Hypertension: Code(s): I10 - Essential (primary) hypertension Category: Medical Qualifiers: Hypertension type: primary hypertension Qualified Code(s): I10 - Essential (primary) hypertension Plan Kera has longstanding hypertension for many decades. Her renal functions are normal. I reviewed aldosterone, renin & cortisol as well as repeat K . I asked her to take losartan 100 mg in the morning consistently every day along with metoprolol. She can continue spironolactone 100 mg at night . She should remain on a low-sodium diet and maintain good hydration. She has no history of LVH, retinopathy or proteinuria. F/U labs ordered. Answered all questions Orders: Orders Creatinine 3 Months I10 - Essential (primary) hypertension Blood Urea Nitrogen 3 Months I10 - Essential (primary) hypertension Electrolytes 3 Months I10 - Essential (primary) hypertension Coding Level of Care Code Est Pt Level 4 (21087) Diagnoses Primary hypertension I10 Hypertension type: primary hypertension
[2025-01-01 11:35] VITALS: BP 130/70; PULSE 67; O2SAT 98; BMI 28.0
--- OUTSIDE RECORDS SUMMARY | 2025-01-01 13:35 | XMS_ITS | Patient Health Record ---
Author Organization [facility] Address [address] [place] [address] Care Team Providers Care Jet Dyeing Machine Tender Name Role Phone Jordan STOCKTON, Roseline Primary Care Provider Og Severino [phone] Reason For Referral No Information Problems Problem Type SNOMED Code ICD Code Onset Dates Problem Status W/U Status Risk Notes Problem Benign neoplasm of stomach (93706148) Gastric polyps (K31.7) Active confirmed Problem Odynophagia (96056855) Odynophagia (R13.10) Active confirmed Plan Of Treatment No Information Insurance Providers Payer Name Payer Address Payer Phone Subscriber Number Group Number Insured Name Patient Relationship to Insured Coverage Start Date Coverage End Date [facility] [address] [address] [place] [address] [id number] KRISTY PAREKH Self - patient is the insured
== END 2025-01-01 11:47 | disposition home or self-care (01) ==
LOC: HO.HKAS 10:53
PROVIDERS: PCP Internal Medicine; Visit Provider Internal Medicine Nephrology
DX: I10 Essential (primary) hypertension (principal)
CPT/HCPCS: 99214

== ENCOUNTER → 2025-01-01 10:52 | Outpatient (BNVA) | payer MEDICARE, SELFPAY | PROVIDERS: PCP Internal Medicine; Visit Provider Internal Medicine Nephrology | DX: I10 Essential (primary) hypertension (principal) | CPT/HCPCS: 99212 ==

== ENCOUNTER 2025-01-22 15:33 | Outpatient (REF) | payer MEDICARE, SELFPAY ==
--- OUTSIDE RECORDS SUMMARY | 2023-08-29 05:10 | XMS_ITS ---
Author Organization [facility] Address [address] [place] [address] Care Team Providers Care Packaging Supervisor Name Role Phone Jordan STOCKTON, Roseline Primary Care Provider Og Severino [phone] REASON FOR VISIT painful swallowing Encounters Encounter Location Date Provider Diagnosis [facility] [place] [address], [place] [phone] 08/29/2023 Og Hook Plan Of Treatment No Information Progress Notes * JB STOLLADOB: 2 (84 yo F)Acc No.[id number]:08/29/2023 EGD/MAC Patient: KRISTY MILES Provider: Jena Hook MD :1940 A ge:82 Y S ex:Female Date:08/29/2023 Address:[address] [place] [address] Pcp:Roseline Ortega MD Subjective: * Chief Complaints: * P ainful swallowing * The named appointment provid er may or may not be the originator of this progress note, and it is not deemed complete until electronically signed by the appointment provider. Sign off status: Pending * Provider: Jena Hook MD Date: 0 08/29/2023 Generated for Rose Mariei ng/Shirley/eTransmitting on: 03/24/2024 08:40 PM EST
--- NOTE | ~2025-01-22 | XR_ITS ---
EXAMINATION: XR SHOULDER, RIGHT CLINICAL INFORMATION: S43.401A - Unspecified sprain of right shoulder joint, initial encounter COMPARISON: None available. TECHNIQUE: AP external rotation, Grashey, scapular Y, and axillary views of the right shoulder. FINDINGS: Mild acromioclavicular arthritis. There is calcification/ossification in the space between the humeral head and the acromion, which could reflect subacromial spurring, hydroxyapatite deposition, or a combination of these. Mild glenohumeral joint arthritis. No acute fracture or dislocation. Bone mineralization is decreased. XR/XR shoulder RT min 2V IMPRESSION: Mild glenohumeral and acromioclavicular arthritis. Calcification/ossifications in the humeral head-acromion space, could be related to bony spurring, hydroxyapatite deposition or a combination of these. Electronically signed by: Reji Hopkins MD 01/23/2025 02:56 PM [facility]
--- OUTSIDE RECORDS SUMMARY | 2025-01-22 20:40 | XMS_ITS | Patient Health Record ---
Author Organization [facility] Address [address] [place] [address] Care Team Providers Care Market Research Senior Project Manager Name Role Phone Jordan STOCKTON, Roseline Primary Care Provider Og Severino [phone] Reason For Referral No Information Problems Problem Type SNOMED Code ICD Code Onset Dates Problem Status W/U Status Risk Notes Problem Benign neoplasm of stomach (28205807) Gastric polyps (K31.7) Active confirmed Problem Odynophagia (02167455) Odynophagia (R13.10) Active confirmed Plan Of Treatment No Information Insurance Providers Payer Name Payer Address Payer Phone Subscriber Number Group Number Insured Name Patient Relationship to Insured Coverage Start Date Coverage End Date [facility] [address] [address] [place] [address] [phone] [id number] KRISTY PAREKH Self - patient is the insured
== END 2025-01-22 15:34 | disposition home or self-care (01) ==
LOC: HO.XRAY 15:33
PROVIDERS: PCP Internal Medicine; Visit Provider Internal Medicine
DX: S43.401A Unspecified sprain of right shoulder joint, initial encounter (principal)
CPT/HCPCS: 73030

== ENCOUNTER → 2025-01-22 15:39 | Outpatient (BNV) | payer MEDICARE, SELFPAY | PROVIDERS: PCP Internal Medicine; Visit Provider Radiology Diagnostic Ultrasound | DX: S43.401A Unspecified sprain of right shoulder joint, initial encounter (principal); M19.011 Primary osteoarthritis, right shoulder | CPT/HCPCS: 73030 ==